=== PATIENT | female | born 1940 | race Caucasian/White ===

== ENCOUNTER 2016-06-09 12:56 | Inpatient (IN) | payer OTHER ==
[~2016-06-09] VITALS: Ht 147.3 cm; Wt 53.2 kg
[~2016-06-09 12:56] MED LIST: ACET325T96 PO; ATOR-26 PO; CLOP1TAB15 PO; CMBIN INH; HYT/2 PO; INSUINJ13 SQ; IPRASOL34 INH; LVQ250 PO; METO1TAB69 PO; NRV5 PO; NTRGSL/4 UT; OMEG10007 PO; PRT/20 PO; SITA25TA PO
[2016-06-09] MEDS ORDERED: SODIUM CHLORIDE 0.9% 1000ML 1,000 ML IV STA ×2 (13:49→16:34)
--- NOTE | 2016-06-09 14:22 | DIAGNOSTIC IMAGING REPORT ---
CHEST ONE VIEW PORTABLE CLINICAL HISTORY: Weakness. COMPARISON STUDY: Chest radiograph June 02, 2015. FINDINGS: Lung volumes are normal. Lungs are clear. There is no pneumothorax or pleural effusion. Cardiac size is normal. Mediastinal contours are normal. There is no evidence of pulmonary edema. The appearance of the chest is unchanged. A vascular stent projects over the left lower neck. IMPRESSION: No acute cardiopulmonary findings. Electronically signed by: Jean Paul Pagan M.D. 06/09/2016 2:20 PM
[2016-06-09 14:48] LABS: BASO % 0.6 %; BASO ABS # 0.04 K/uL (0-0.2); COMPLETE YES; EOS % 5.8 %; HEMATOCRIT 28.7 % (37-47); IG% 0.3 %; LYMPH ABS # 1.38 K/uL (1.2-3.4); MEAN CORPUSCULAR HEMOGLOBIN 31.4 pg (25-34); MEAN CORPUSCULAR HGB CONC 34.1 g/dl (32-36); MEAN PLATELET VOLUME 10.3 fL (7.4-10.4); MONO % 6.1 %; NEUT % 66.2 %; PLATELET COUNT 186 K/uL (130-400); RED BLOOD COUNT 3.12 M/uL (4.2-5.4); WHITE BLOOD COUNT 6.56 K/uL (4.8-10.8)
[2016-06-09 15:42] LABS: BUN/CREATININE RATIO 8.1 (10-20); CALCIUM 14.4 mg/dl (8.5-10.1); CREATININE 7.3 mg/dl (0.60-1.20); MAGNESIUM 3.4 mg/dl (1.8-2.4); PHOSPHORUS 6.1 mg/dl (2.5-4.9); POTASSIUM 4.3 mmol/L (3.5-5.1)
[2016-06-09] MEDS ORDERED: SODIUM CHLORIDE 0.9% 1000ML 1,000 ML IV SCH (17:05)
[2016-06-09] MEDS ORDERED: NITROGLYCERIN 0.4 MG SL PER TAB CHARGE SL PRN (17:15)
[2016-06-09] MEDS ORDERED: ALUMINUM/MAGNESIUM/SIMETH (MAALOX MAX) 30 ML UDC PO PRN (17:15)
[2016-06-09] MEDS ORDERED: ACETAMINOPHEN 325 MG TAB PO PRN (17:15)
[2016-06-09] MEDS ORDERED: NITROGLYCERIN 0.4 MG SL PER TAB CHARGE UT SCH (17:15)
[2016-06-09] MEDS ORDERED: IPRATROPIUM BROMIDE/ALBUTEROL respimat INH INH PRN (17:15)
[2016-06-09] MEDS ORDERED: ONDANSETRON INJ 2 MG/ML 2 ML VIAL IV PRN (17:15)
[2016-06-09] MEDS ORDERED: POLYETHYLENE (MIRALAX) 17 GM PACK PO PRN (17:15)
[2016-06-09] MEDS ORDERED: DEXTROSE 50% 50 ML SYR IV PRN (17:30)
[2016-06-09] MEDS ORDERED: GLUCAGON FOR INJ 1 MG VIAL SQ PRN (17:30)
[2016-06-09] MEDS ORDERED: GLUCOSE 40% GEL 15 GM TUBE PO PRN (17:30)
[2016-06-09] MEDS ORDERED: GLUCOSE 10 TABS/TUBE PO PRN (17:30)
[2016-06-09] MEDS ORDERED: SYMIN160 INH (17:33)
[2016-06-09 17:39] LABS: PROTHROMBIN TIME (PATIENT) 10.3 SECONDS (9.0-12.0)
[2016-06-09 17:45] LABS: URINE APPEARANCE CLEAR (CLEAR); URINE BILIRUBIN NEG (NEG); URINE COLOR YELLOW; URINE NITRITE NEG (NEG); URINE SPECIFIC GRAVITY 1.002 (1.000-1.030); UROBILINOGEN NEG (NEG)
[2016-06-09 17:49] LABS: MANUAL MICROSCOPIC REQUIRED? NO; REVIEW REQ? NO; SULFASALICYLIC ACID POS (NEG)
--- NOTE | 2016-06-09 17:53 | EMERGENCY ROOM VISIT NOTE ---
History Report prepared by Romero: Sue Barajas Under the Supervision of: Dr. Diony Alfaro D.O. First contact with patient: 13:38 Chief Complaint: REFERRED BY DOCTOR Stated Complaint: LIVER PROBLEMS History of Present Illness The patient is a 76 year old female who presents to the Emergency Room with complaints of a referral by doctor that occurred today. The patient states that she had blood work done at [facility] in [place]. They called her today to inform her that she needs to come into the ED because her liver tests were concerning. She is also experiencing a cough, rhinorrhea, and bilateral leg numbness below the knees, but denies chest pain, nausea, vomiting , and diarrhea. Additionally, she has been experiencing abdominal pain for the past couple days. She denies any new shortness of breath and states that she typically wears 2 L of nasal cannula oxygen at night. The patient has a history of an appendectomy but still has her gallbladder. Source of History: patient Onset: today Position: other (generalized) Quality: other (referral by doctor) Associated Symptoms: + abdominal pain, + cough, + numbness (bilateral legs below knees), No SOB, No chest pain, No diarrhea, No nausea, No vomiting Note: rhinorrhea Review of Systems See HPI for pertinent positives & negatives. A total of 10 systems reviewed and were otherwise negative. Past Medical & Surgical Medical Problems: (1) ARF (acute renal failure) (2) CAD (coronary artery disease) (3) CHF exacerbation (4) CKD (chronic kidney disease), stage IV (5) COPD exacerbation (6) COPD, severe (7) Diabetes (8) Dyslipidemia (9) Femoral artery aneurysm, right (10) GERD (gastroesophageal reflux disease) (11) Hypercalcemia (12) Ischemic cardiomyopathy (13) PVD (peripheral vascular disease) Surgical Problems: (1) H/O aorto-femoral bypass (2) History of hysterectomy (3) Hx of appendectomy (4) Hx of cataract surgery (5) S/P carotid endarterectomy (6) S/P femoral-popliteal bypass surgery Family History Patient reports no known family medical history. Social History Smoking Status: Former Smoker Alcohol Use: none Marital Status: Occupation Status: retired Current/Historical Medications Scheduled Amlodipine Besylate (Amlodipine Besylate), 10 MG PO QAM Atorvastatin (Lipitor), 1 TAB PO DAILY Budesonide/Formoterol Fumarate (Symbicort 160/4.5 Inhaler), 2 PUFFS INH BID Clopidogrel (Plavix), 75 MG PO DAILY Fish Oil ([place]-3), 1 CAP PO BID Insulin Aspart Protamine & Asp (Novolog Mix 70/30 Prefill), 5 UNITS SQ BIDM Ipratropium-Albuterol (Duoneb), 1 TREATMENT INH QID Metoprolol Succ (Toprol Xl) (Toprol-Xl ), 100 MG PO DAILY Nitroglycerin (Nitrostat), 0.4 MG UT PRN Pantoprazole Sodium (Protonix), 20 MG PO DAILY Sitagliptin (Januvia), 25 MG PO DAILY Terazosin Hcl (Hytrin), 2 MG PO DAILY Scheduled PRN Acetaminophen Tab (Tylenol), 650 MG PO Q4 PRN for Headache or Pain Ipratropium/Albuterol (Combivent), 2 PUFFS INH QID PRN for Shortness of Breath Allergies Coded Allergies: Codeine (Verified Allergy, Mild, 06/09/16) ABD DISTRESS Aspirin (Verified Allergy, Unknown, UNKNOWN, 06/09/16) PER HER DOCTOR, SHE IS NOT SUPPOSE TO TAKE IT BECAUSE OF HER KIDNEYS Physical Exam Vital Signs Date Time Temp Pulse Resp B/P Pulse Ox O2 Delivery O2 Flow Rate FiO2 06/09/16 16:01 84 21 100 06/09/16 15:31 84 23 99 06/09/16 15:01 84 26 99 06/09/16 14:56 85 25 100 06/09/16 14:28 134/53 06/09/16 14:26 83 26 100 06/09/16 14:05 85 06/09/16 14:01 96 Nasal Cannula 2.0 06/09/16 14:01 96 Nasal Cannula 3.0 06/09/16 13:05 36.6 87 20 111/53 93 Room Air Physical Exam GENERAL: alert, sitting up in bed, disheveled, cachectic appearing, well nourished, no distress, non-toxic EYE EXAM: normal conjunctiva OROPHARYNX: no exudate, no erythema, lips, buccal mucosa, and tongue normal and mucous membranes are moist NECK: supple, no nuchal rigidity, no adenopathy, non-tender LUNGS: Clear to auscultation. Normal chest wall mechanics HEART: no murmurs, S1 normal and S2 normal ABDOMEN: abdomen soft, non-tender, normo-active bowel sounds, no masses, no rebound or guarding. BACK: Back is symmetrical on inspection and there is no deformity, no midline tenderness, no CVA tenderness. SKIN: no rashes and no bruising UPPER EXTREMITIES: upper extremities are grossly normal. LOWER EXTREMITIES: No pitting edema. NEURO EXAM: Normal sensorium Medical Decision & Procedures ER Provider Diagnostic Interpretation: Xray results per the radiologist and my interpretation. CHEST ONE VIEW PORTABLE HISTORY: EVALUATE RESPIRATORY DISTRESS.DYSPNEA COMPARISON: Chest 08/27/2015. FINDINGS: The heart is normal in size. Mildly tortuous thoracic aorta. There are low lung volumes. No pleural effusions. No pneumothorax. Mild central pulmonary vascular congestion without overt edema. Patchy densities at the left lung base persist. IMPRESSION: 1. Mild central pulmonary vascular congestion without overt edema. 2. Patchy densities at the left lung base are similar. This may represent atelectasis or pneumonia. Electronically signed by: Chaitanya Ruvalcaba M.D. 06/09/2016 2:12 PM Laboratory Results 06/09/16 14:30 Red Blood Count 3.12, Mean Corpuscular Volume 92.0, Mean Corpuscular Hemoglobin 31.4, Mean Corpuscular Hemoglobin Concent 34.1, Mean Platelet Volume 10.3, Neutrophils (%) (Auto) 66.2, Lymphocytes (%) (Auto) 21.0, Monocytes (%) (Auto) 6.1, Eosinophils (%) (Auto) 5.8, Basophils (%) (Auto) 0.6, Neutrophils # (Auto) 4.34, Lymphocytes # (Auto) 1.38, Monocytes # (Auto) 0.40, Eosinophils # (Auto) 0.38, Basophils # (Auto) 0.04 06/09/16 14:30 Test 06/09/16 14:30 06/09/16 17:06 White Blood Count 6.56 K/uL (4.8-10.8) Red Blood Count 3.12 M/uL (4.2-5.4) Hemoglobin 9.8 g/dL (12.0-16.0) Hematocrit 28.7 % (37-47) Mean Corpuscular Volume 92.0 fL (80-100) Mean Corpuscular Hemoglobin 31.4 pg (25-34) Mean Corpuscular Hemoglobin Concent 34.1 g/dl (32-36) Platelet Count 186 K/uL (130-400) Mean Platelet Volume 10.3 fL (7.4-10.4) Neutrophils (%) (Auto) 66.2 % Lymphocytes (%) (Auto) 21.0 % Monocytes (%) (Auto) 6.1 % Eosinophils (%) (Auto) 5.8 % Basophils (%) (Auto) 0.6 % Neutrophils # (Auto) 4.34 K/uL (1.4-6.5) Lymphocytes # (Auto) 1.38 K/uL (1.2-3.4) Monocytes # (Auto) 0.40 K/uL (0.11-0.59) Eosinophils # (Auto) 0.38 K/uL (0-0.5) Basophils # (Auto) 0.04 K/uL (0-0.2) RDW Standard Deviation 47.5 fL (36.4-46.3) RDW Coefficient of Variation 14.3 % (11.5-14.5) Immature Granulocyte % (Auto) 0.3 % Immature Granulocyte # (Auto) 0.02 K/uL (0.00-0.02) Prothrombin Time 10.3 SECONDS (9.0-12.0) Prothromb Time International Ratio 1.0 (0.9-1.1) Anion Gap 10.0 mmol/L (3-11) Est Creatinine Clear Calc Drug Dose 3.9 ml/min Estimated GFR () 5.6 Estimated GFR (Non- 4.9 BUN/Creatinine Ratio 8.1 (10-20) Calcium Level 14.4 mg/dl (8.5-10.1) Phosphorus Level 6.1 mg/dl (2.5-4.9) Magnesium Level 3.4 mg/dl (1.8-2.4) Total Bilirubin 0.4 mg/dl (0.2-1) Direct Bilirubin 0.1 mg/dl (0-0.2) Aspartate Amino Transf (AST/SGOT) 23 U/L (15-37) Alanine Aminotransferase (ALT/SGPT) 33 U/L (12-78) Alkaline Phosphatase 78 U/L (45-117) Troponin I 0.018 ng/ml (0-0.045) Total Protein 6.3 gm/dl (6.4-8.2) Albumin 3.3 gm/dl (3.4-5.0) Urine Color YELLOW Urine Appearance CLEAR (CLEAR) Urine pH 8.0 (4.5-7.5) Urine Specific Dustin 1.002 (1.000-1.030) Urine Protein TRACE (NEG) Urine Glucose (UA) NEG (NEG) Urine Ketones NEG (NEG) Urine Occult Blood TRACE (NEG) Urine Nitrite NEG (NEG) Urine Bilirubin NEG (NEG) Urine Urobilinogen NEG (NEG) Urine Leukocyte Esterase NEG (NEG) Urine WBC (Auto) 1-5 /hpf (0-5) Urine RBC (Auto) 0-4 /hpf (0-4) Urine Hyaline Casts (Auto) 1-5 /lpf (0-5) Urine Epithelial Cells (Auto) 5-10 /lpf (0-5) Urine Bacteria (Auto) NEG (NEG) Laboratory results per my review. Medications Administered Medications (Trade) Dose Ordered Sig/Jennifer Route Start Time Stop Time Status Last Admin Dose Admin Sodium Chloride 1,000 ml @ 999 mls/hr Q1H1M STAT IV 06/09/16 13:49 06/09/16 14:49 DC 06/09/16 15:01 999 MLS/HR Sodium Chloride (Nss 1000ml) 1,000 ml @ 999 mls/hr Q1H1M STAT IV 06/09/16 16:34 06/09/16 17:34 DC 06/09/16 17:09 999 MLS/HR ECG Indication: abdominal pain Rate (beats per minute): 85 Rhythm: sinus rhythm Findings: 1st degree AV block, nonspecific-ST abn (Inferior), other (normal axis) ED Course ED COURSE: Vital signs were reviewed and showed normal. The patients medical record was reviewed The above diagnostic studies were performed and reviewed. ED treatments and interventions as stated above. 1342: The patient was evaluated in room B5. A complete history and physical examination was performed. 1349: Ordered Sodium Chloride 1000 ml @ 999 mls/hr IV 1510: I reassessed and updated the patient. 1607: I reviewed the patient's case with Adele Mcconnell. She will evaluate the patient for further management. 1610: Upon reevaluation, the patient is resting comfortably. I discussed my findings with the patient and she understands and agrees with the treatment plan. Based on the patients age, coexisting illnesses, exam and lab findings the decision to treat as an inpatient was made. The patient remained stable while under my care. The patient will be evaluated for further management. 1616: The nurses performed a bladder scan on the patient and it revealed that she had 130 mL of fluid in her bladder. 1632: I reviewed the patient's case with Dr. Mariaelena Young. He recommended putting a Perez catheter in the patient and hydrating her. 1634: Ordered Sodium Chloride 1000 ml @ 999 mls/hr IV Medical Decision Differential Diagnosis includes but is not limited to dehydration, stroke, anemia, hypoglycemia, hyponatremia, hypernatremia, urinary tract infection, pneumonia, bronchitis, sepsis, gastroenteritis, additional abdominal pathology, metabolic abnormalities and infections. Patient is a 76-year-old female who presents the ER for a referral by her primary care doctor for abnormal labs. She initially states that this is because of liver failure. On exam she notes that she has been feeling very weak and tired. She denies any diarrhea, nausea or vomiting. She has she has been giving him more liquids than usual. Labs show no significant leukocytosis or anemia. BMP was remarkable for a creatinine of 7.3 along with a calcium of 14. Her previous calciums were elevated. Her phosphate and magnesium are also elevated. UA was unremarkable. Discussed the case with internal medicine and nephrology. Perez was placed and had 125 ML's out. Perez was placed per nephrology. He noted no follow-up and they recommended aggressive IV hydration. Patient was updated bedside admitted to internal medicine for acute renal failure along with hypercalcemia. Consults Time Called: 1555 Consulting Physician: Adele Mcconnell Returned Call: 1606 I reviewed the patient's case with Adele Mcconnell. She will evaluate the patient for further management. Additional Consults: Time Called: 1620 Consulted Physician: Dr. Mariaelena Young Returned Call: 1632 Additional Comments: I reviewed the patient's case with Dr. Mariaelena Young. He recommended putting a Perez catheter in the patient and hydrating her. Impression Primary Impression: Acute kidney injury Additional Impressions: Hypercalcemia, Hypermagnesemia, Hyperphosphatemia Scribe Attestation The scribe's documentation has been prepared under my direction and personally reviewed by me in its entirety. I confirm that the note above accurately reflects all work, treatment, procedures, and medical decision making performed by me. Departure Information Dispostion Being Evaluated By Hospitalist Prescriptions Budesonide/Formoterol Fumarate (Symbicort 160/4.5 Inhaler) 120 Puffs/ Aero 2 PUFFS INH BID for 30 Days, #1 INHALER 3 Refills Prov: Elliott Pascual MD 06/09/16 Referrals Dong Baumann M.D.([facility]) (PCP) Patient Instructions A Signature Page, My [facility]
--- NOTE | 2016-06-09 18:00 | DIAGNOSTIC IMAGING REPORT ---
ABDOMEN AND PELVIS CT WITHOUT CONTRAST CT DOSE: 245.65 mGy.cm HISTORY: Renal failure pain. Constipation. TECHNIQUE: Multiaxial CT images of the abdomen and pelvis were performed without contrast. COMPARISON STUDY: 10/17/2007 FINDINGS: Limited study due to absence of contrast enhancement of a type. Mild grade megaly. Trace pericardial thickening. Minimal dependent basilar atelectatic change. There is trace. Ascites. Probable gallstones. Contracted gallbladder. Bilateral nonobstructive renal vascular calcifications. Mild hyperplastic change left adrenal gland unchanged. Atherosclerotic changes the abdominal and pelvic arterial vasculature mildly progressive from the prior study. Bowel pattern overall is nonobstructive within limitations of absent contrast. Chronic colonic diverticulosis with potential of wall thickening of the sigmoid consistent with mild superimposed acute diverticulitis. No evidence for abscess collection or obstructive change. Perez catheter within a relatively collapsed bladder. IMPRESSION: 1. Trace ascites. 2. Gallstones within what appears be a moderately contracted gallbladder. 3. Atherosclerotic change abdominal and pelvic arterial vasculature progressive compared to the prior exam. 4. Mild acute sigmoid diverticulitis superimposed upon chronic diverticuli change. 5. No evidence for abscess collection or obstructive change. Electronically signed by: Julio Cesar Valdivia M.D. 06/09/2016 5:58 PM
--- NOTE | 2016-06-09 18:50 | HISTORY & PHYSICAL EXAMINATION ---
DATE OF ADMISSION: 06/09/2016 CHIEF COMPLAINT: Abnormal labs. HISTORY OF PRESENT ILLNESS: This is a 76-year-old female with past medical history significant for type 1 diabetes, chronic kidney disease stage 4, history of CAD, history of carotid stenosis, history of nontoxic multinodular goiter, history of peripheral vascular disease, history of gastric ulcer with acute hemorrhage, history of GERD, history of congenital anomaly of the peripheral vascular system, history of systolic CHF with an EF of around 45%-50%, , history of hyperlipidemia, history of COPD, severe, on home oxygen; history of calculus of gallbladder without cholecystitis without obstruction comes because of abnormal labs. The patient says since last 2-3 weeks she has been dry in her mouth and also she was feeling numbness in her lower extremities on and off. She had labs done by her primary care physician and was told that she has to go to the ER because of significant abnormal labs and labs drawn in the ER shows a creatinine of 7.3, and calcium of 14.4. Her baseline creatinine is around 2 and her calcium is also in the 10s to 11 range as an outpatient. The patient is chronically on home oxygen for her COPD, currently resting comfortably. Denies any nausea or vomiting. Denies any chest pain. Denies any shortness of breath. Denies any cough. Denies any headaches or blurred vision. No abdominal pain. Says appetite is very poor. She says she has constipation for a long time and she goes only very hard stools. She lives alone. She has ambulatory dysfunction, but she can get around in the house. Her brother comes and checks on her and her niece comes and checks on her. She is not following with any kidney doctor. ALLERGIES: AMOXICILLIN, IMDUR, SALICYLATES. PAST MEDICAL HISTORY: As mentioned above. PAST SURGICAL HISTORY: Arterial femoral bypass graft in 2001, left heart catheterization. Left carotid endarterectomy, right femoral artery aneurysm repair with graft, laser trabeculoplasty, left carotid artery stent placement, total hysterectomy. MEDICATIONS: The patient is on amlodipine 10 mg p.o. daily, terazosin 2 mg p.o. daily, NovoLog mix 70/30 five units b.i.d., Protonix 40 mg p.o. daily, Combivent 1 inhalation 4 times daily, DuoNeb nebulization 3-4 times a day as needed, prednisone rescue kit, azithromycin rescue kit, metoprolol succinate 100 mL p.o. daily, Plavix 75 mg p.o. daily, Januvia 25 mg p.o. daily, atorvastatin 80 mg p.o. daily, Symbicort 160/4.5 mcg inhalation b.i.d., nitroglycerin 0.4 mg p.r.n., Tylenol 650 mg p.o. q. 4 hours p.r.n., fish oil 1 gram p.o. b.i.d. FAMILY HISTORY: Significant for mother at the age of 86. Father . Father had heart disorder. SOCIAL HISTORY: . Quit smoking in 2000, smoked half pack a day for 40 years. No alcohol use. No drug use. Lives alone. REVIEW OF SYSTEMS: As per HPI. PHYSICAL EXAMINATION: GENERAL: The patient is old and frail, not in distress. VITAL SIGNS: Temperature 36.6, pulse 84, respiratory rate 21, blood pressure 134/53, oxygen 100% on 2 liters. HEENT: No pallor, no icterus. Pupils equal, round, and reactive to light. Oral mucosa dry. NECK: No JVD, no neck masses, no carotid bruits. CARDIOVASCULAR: S1, S2 heard, regular rate and rhythm, no murmur, no gallop. RESPIRATORY SYSTEM: Normal AP diameter. No accessory muscle use. No wheezing, no crackles. ABDOMEN: Soft, bowel sounds present. Nontender. No distention. CENTRAL NERVOUS SYSTEM: Cranial nerves II through XII grossly intact. Nonfocal. EXTREMITIES: No edema, no erythema. LABORATORIES: Sodium 137, potassium 4.3, chloride 94, bicarbonate 33, BUN 59, creatinine 7.3, serum glucose 141, calcium 14.4, phosphorus 6.1, magnesium 3.4, total bilirubin 0.4, direct bilirubin 0.1, AST 23, ALT 33, alkaline phosphatase 78. WBC 6.5, hemoglobin 9.8, hematocrit 28.7, platelets 186. Chest x-ray: No acute process seen. EKG: EKG sinus rhythm with first-degree AV block, rate of 85. [place] interval has increased, otherwise has no significant change from previous EKG. ASSESSMENT AND PLAN: This is a 70-year-old female who presents with abnormal labs. 1. Acute renal failure and chronic kidney disease stage 4. Baseline creatinine around 2, presents with a creatinine of 7.3. The patient has no history of nausea, vomiting or diarrhea, not on any nephrotoxic medications, but patient has poor appetite. The patient also is constipated for a long time. Discussed with the battery installer. The patient is also having hypercalcemia. We are going to place the patient on Perez catheter and give fluid challenge. If she responds to fluid challenge with urine output, we are going to continue fluids, IV normal saline at 150 mL per hour and follow the labs. If the patient does not improve the plan is for dialysis. Close monitor in the telemetry floor. 2. Hypercalcemia. Calcium of 14.4. The patient has previous labs, around 10-11. Trying to give fluid bolus as above and follow the labs.Workup as per nephrology 3. History of chronic systolic congestive heart failure with an ejection fraction of around 45%-49%. Global hypokinesis, etiology unknown. Not on any diuretics. We will monitor for volume overload as the patient is getting fluids at this time. 4. History of peripheral vascular disease, status post surgery, the patient is on Plavix and statin which we will continue. 5. History of type 1 diabetes. We will hold the NovoLog mix and metformin, place on small dose of Lantus and insulin sliding scale and follow the blood sugars. 6. History of constipation going on for several days. We will follow the CT of the abdomen and pelvis. 7. History of chronic obstructive pulmonary disease, severe, on home oxygen. We will continue home inhalers and nebs and oxygen. 8. History of coronary artery disease, continue her medication of metoprolol, Plavix and statin. 9. History of hypertension. Continue amlodipine, terazosin and metoprolol. Follow the blood pressure. 10. History of gastroesophageal reflux disease. Continue Protonix. 11. Deep venous thrombosis prophylaxis, heparin subQ and sequential compression devices. 12. Disposition: Close monitor in tele floor. Level 1 full code if chance of recovery. MTDD
[2016-06-09 19:50] VITALS: Ht 147.3 cm; Wt 53.2 kg
[2016-06-09 19:57] VITALS: BP 119/56; PULSE 86; TEMP 36.8; O2SAT 92
[2016-06-09] MEDS ORDERED: ALBUT/IPRATROP 3MG/0.5MG NEB 3 ML VIAL INH SCH (20:00)
[2016-06-09] MEDS: INSULIN ASPART 100 UNITS/ML 3 ML PEN SC SCH (21:40)
[2016-06-09] MEDS: BUDESONIDE/FORMOTEROL FUMARATE 160/4.5 60 PUFFS/INHALER INH SCH (21:40)
[2016-06-09] MEDS: OMEGA-3 (PURIFIED FISH OIL) 1 GM CAP PO SCH (21:41)
[2016-06-09] MEDS: HEPARIN SOD 5000 UNIT/0.5 ML CARP SQ SCH (21:42)
[2016-06-09 21:53] LABS: BUN/CREATININE RATIO 9.3 (10-20); CALCIUM 13.6 mg/dl (8.5-10.1); CREATININE 7.2 mg/dl (0.60-1.20); POTASSIUM 4.5 mmol/L (3.5-5.1)
[2016-06-09] MEDS: SODIUM CHLORIDE 0.9% 1000ML 1,000 ML IV SCH (22:35)
[2016-06-10] VITALS (7 sets, daily range): BP systolic 106–197; BP diastolic 41–62; PULSE 69–80; TEMP 36.7–36.9; O2SAT 96–98
[2016-06-10] MEDS: SODIUM CHLORIDE 0.9% 1000ML 1,000 ML IV SCH (05:23)
[2016-06-10 06:55] LABS: BASO % 0.7 %; BASO ABS # 0.04 K/uL (0-0.2); EOS % 7.8 %; LYMPH % 24.8 %; MEAN CELL VOLUME 93.9 fL (80-100); MEAN CORPUSCULAR HEMOGLOBIN 30.7 pg (25-34); MEAN CORPUSCULAR HGB CONC 32.7 g/dl (32-36); MEAN PLATELET VOLUME 10.3 fL (7.4-10.4); MONO % 9.4 %; NEUT % 57.3 %; PLATELET COUNT 152 K/uL (130-400); RED BLOOD COUNT 2.77 M/uL (4.2-5.4); WHITE BLOOD COUNT 5.65 K/uL (4.8-10.8)
[2016-06-10 07:40] LABS: ACANTHOCYTES 1+; COMPLETE YES
[2016-06-10 07:48] LABS: BUN/CREATININE RATIO 9.3 (10-20); CALCIUM 12.4 mg/dl (8.5-10.1); CREATININE 6.8 mg/dl (0.60-1.20); MAGNESIUM 2.8 mg/dl (1.8-2.4); PHOSPHORUS 5.6 mg/dl (2.5-4.9); POTASSIUM 4.5 mmol/L (3.5-5.1)
[2016-06-10 07:57] LABS: ESTIMATED AVERAGE GLUCOSE 171 mg/dl; HA1C FLAG Normal (Normal)
[2016-06-10] MEDS: INSULIN ASPART 100 UNITS/ML 3 ML PEN SC SCH ×4 (08:21→21:00)
[2016-06-10] MEDS: BUDESONIDE/FORMOTEROL FUMARATE 160/4.5 60 PUFFS/INHALER INH SCH ×2 (08:22→21:37)
[2016-06-10] MEDS: INSULIN GLARGINE SOLOSTAR 100 UNITS/ML 3 ML PEN SC SCH ×2 (08:24→21:47)
[2016-06-10] MEDS: HEPARIN SOD 5000 UNIT/0.5 ML CARP SQ SCH ×2 (08:25→21:47)
[2016-06-10] MEDS: OMEGA-3 (PURIFIED FISH OIL) 1 GM CAP PO SCH ×2 (08:25→21:36)
[2016-06-10] MEDS: ATORVASTATIN 40 MG TAB PO SCH (08:26)
[2016-06-10] MEDS: CLOPIDOGREL BISULFATE 75 MG TAB PO SCH (08:26)
[2016-06-10] MEDS: METOPROLOL SUCC 50MG EXT REL TAB PO SCH (08:26)
[2016-06-10] MEDS: PANTOprazole SOD 40 MG TAB PO SCH (08:26)
[2016-06-10] MEDS: AMLODIPINE BESYLATE 5 MG TAB PO SCH (08:27)
[2016-06-10] MEDS ORDERED: CIPROFLOXACIN CONSULT ACTIVE PRN ×2 (09:30)
[2016-06-10] MEDS: CIPROFLOXACIN / D5W 400 MG in PREMIXED IN D5W 200 ML IV SCH (10:33)
[2016-06-10] MEDS: METRONIDAZOLE / NSS 500 MG in PREMIXED NSS 100 ML IV SCH ×2 (10:40→18:00)
--- NOTE | 2016-06-10 14:44 | NEPHROLOGY CONSULTATION ---
DATE OF CONSULTATION: 06/10/2016 DATE OF CONSULTATION: 06/10/2016. ATTENDING OF RECORD: Dr. Pascual. REASON FOR CONSULTATION: DEMETRIO. 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 The patient has also had a high calcium for several years and presented with very poor appetite, leg weakness and constipation. The patient was found to have a creatinine of 7.3 with a baseline in the 2s with a calcium level of 14.4 with baseline in the 11s and appeared to be significantly volume depleted. The patient given aggressive hydration and is currently on normal saline and tolerating it well. Creatinine has improved from 7.3-6.8 and calcium levels have improved from 14.4-12.4. The patient's leg weakness has improved and appetite is much better, has clear urine in her Perez catheter. Denies any significant shortness of breath compared to her baseline. PAST MEDICAL HISTORY: Diabetes, CKD stage IV, baseline creatinine in the 2s, heart disease, peripheral vascular disease, congestive heart failure, COPD with history of smoking, quit smoking but does require home oxygen, hyperlipidemia. PAST SURGICAL HISTORY: Aortofemoral bypass graft 2001, left CEA, right femoral artery aneurysm repair, left carotid artery stent placement, hysterectomy. FAMILY HISTORY: Significant for heart disease. SOCIAL HISTORY: Lives alone. Quit smoking in 2000. No alcohol, no drugs. REVIEW OF SYSTEMS: Positive shortness of breath with exertion. Positive fatigue. Positive anorexia. Positive constipation. Positive blurry vision. No dysphagia, no chest pain, no nausea, vomiting, no rash. All other review of systems otherwise negative. CURRENT MEDICATIONS: Cipro 400 mg IV every day, Flagyl 500 mg IV q. 8 hours, Norvasc 10 mg daily, Lipitor 80 mg daily, Plavix 75 mg daily, Toprol-XL 100 mg daily, terazosin 2 mg daily, Protonix 40 mg daily, normal saline at 150 mL an hour, Lantus 3 units at night, heparin 5,000 units subQ q. 12, fish oil 1 gram p.o. b.i.d., sliding scale insulin, Symbicort inhaler twice a day. PHYSICAL EXAMINATION: VITAL SIGNS: Temperature 36.7, pulse 72, respiratory rate 18, blood pressure 106/57, satting 96% on 3 liters. GENERAL: Awake, alert, oriented x3, and cachectic. EYES: No scleral icterus. EARS, NOSE, THROAT: Mucous membranes are dry. NECK: Supple. PULMONARY: Minimal air movement. CARDIAC: Distant heart sounds. ABDOMEN: Bowel sounds positive, soft, nontender. EXTREMITIES: No significant clubbing, cyanosis or edema. NEUROLOGICALLY: Nonfocal. DERMATOLOGY: No rash or ulcers noted. LABORATORY DATA: Sodium is 143, potassium is 4.5, chloride is 108, bicarb is 28, BUN 64, creatinine 6.8, glucose 76, calcium is 12.4, phosphorus 5.6, mag is 2.8. Hemoglobin A1c 7.6. White count is 5.6, H\T\H 8.5 and 26, platelet count 152. INR is 1. UA shows 0-4 RBCs, specific gravity 1.002, pH of 8. Abdominal pelvis CT shows gallstones, atherosclerotic changes of the vasculature, mild diverticulitis. IMPRESSION AND PLAN: 1. Acute kidney injury on chronic kidney disease stage IV, appears to be prerenal in nature and creatinine is improving with appropriate hydration, careful given the patient's underlying COPD as well as congestive heart failure, although currently tolerating nasal cannula and tolerating the fluids well. We will continue the normal saline at 150 mL an hour and patient is urinating well. Creatinine is trending down. Currently not uremic. No indication for emergent dialysis at this time. 2. Hypercalcemia. The patient's calcium levels have been chronically high for several years. Would like to check SPEP, vitamin D, PTHRP, ANGEL level, 125 dihydroxy vitamin D levels to further evaluate the hypercalcemia causes. The patient's worsening high calcium level is likely secondary to prerenal though does have possible underlying primary hyperparathyroidism. Will have to do the workup to further investigate the causes for her high calcium which she has at baseline. 3. Chronic kidney disease. The patient does have underlying CKD likely secondary to her diabetes, hypertension and vascular disease as an outpatient. I would recommend followup with nephrology if the patient is agreeable. The patient though does admit to me that she does not prefer to investigate such causes and tries to keep doctors' appointments to a minimum. For now, will give IV fluids. Follow electrolytes, workup cause for high calcium. Hopefully, creatinine eventually improves back down to baseline, although complicated given her comorbidities with underlying chronic obstructive pulmonary disease and at risk for congestive heart failure. I appreciate the consultation. MICHELLE
[2016-06-10 16:47] LABS: BUN/CREATININE RATIO 9.3 (10-20); CALCIUM 11.9 mg/dl (8.5-10.1); MAGNESIUM 2.5 mg/dl (1.8-2.4); PHOSPHORUS 5.1 mg/dl (2.5-4.9); POTASSIUM 4.7 mmol/L (3.5-5.1)
[2016-06-10 16:49] LABS: CREATININE 6.5 mg/dl (0.60-1.20)
--- NOTE | 2016-06-10 17:15 | DIAGNOSTIC IMAGING REPORT ---
CHEST ONE VIEW PORTABLE CLINICAL HISTORY: congestion COMPARISON STUDY: 06/09/2016 FINDINGS: The heart is enlarged. There is radiographic evidence of emphysema. There is subtle interstitial edema most pronounced in the left midlung zone. There is no focal pulmonary consolidation. There are no pleural effusions.[ There is a vascular stent within the left neck. IMPRESSION: 1. Emphysema 2. Cardiomegaly 3. Very subtle interstitial edema pattern most pronounced in the left midlung zone. While likely on a cardiogenic basis, an interstitial inflammatory process could appear similar. Clinical and radiographic follow-up is recommended. Electronically signed by: Cole Ro M.D. 06/10/2016 5:13 PM Dictated Date/Time: 06/10/2016 5:11 PM
[2016-06-10 17:45] LABS: INFLUENZA A PCR Neg for Influ A (NEG); INFLUENZA B PCR Neg for Influ B (NEG)
--- NOTE | 2016-06-10 19:09 | Progress Note ---
Internal Med Progress Note Date of Service: Jun 10, 2016. Provider Documentation: SUBJECTIVE: resting comfortably family in room feeling better de la rosa yesterday still constipated family says she is getting sob while talking afebrile no chest pain OBJECTIVE: Vital Signs-as noted below Exam: General-alert and oriented x 3 ENT-normal hearing Neck-no neck masses Lungs-cta b/l no wheezing or crackles Heart-s1 and s2 heard regular rate and rhythm, no murmurs Abdomen-soft bowel sounds present non tender no distension Extremities-no edema no erythema Neuro-alert and awake moves extremities Lab data as noted below. ASSESSMENT & PLAN: This is a 70-year-old female who presents with abnormal labs. 1. Acute renal failure and chronic kidney disease stage 4. Baseline creatinine around 2, presents with a creatinine of 7.3. Mostly pre renal Started on IV fluids as per nephrology recommendation cr improved to 6.5 todasy. To continue current fluids and close monitor for volume overload.CXR mild interstitial disease. will f/u. 2. Hypercalcemia. Presented with Calcium of 14.4. The patient has previous labs, around 10-11. On iv ns@150ml/hr ca today 11.9. f/u labs in am. 3. History of chronic systolic congestive heart failure with an ejection fraction of around 45%-49%. Global hypokinesis, etiology unknown. Not on any diuretics. We will monitor for volume overload as the patient is getting fluids at this time. 4. Diverticulitis mild on ct scan started on Cipro and Flagyl. follow GI. 5. History of peripheral vascular disease, status post surgery, the patient is on Plavix and statin which we will continue. 6. History of type 1 diabetes. We will hold the NovoLog mix and metformin, place on small dose of Lantus and insulin sliding scale and follow the blood sugars.Will monitor. 7. History of constipation going on for several days. We will follow the CT of the abdomen and pelvis. 8. History of chronic obstructive pulmonary disease, severe, on home oxygen. We will continue home inhalers and nebs and oxygen. 9. History of coronary artery disease, continue her medication of metoprolol, Plavix and statin. 10. History of hypertension. Continue amlodipine, terazosin and metoprolol. Follow the blood pressure. 11. History of gastroesophageal reflux disease. Continue Protonix. 12. Deep venous thrombosis prophylaxis, heparin subQ and sequential compression devices. 13. Disposition: Close monitor in tele floor. Level 1 full code if chance of recovery. Vital Signs: Date Time Temp Pulse Resp B/P Pulse Ox O2 Delivery O2 Flow Rate FiO2 06/10/16 16:00 Nasal Cannula 3.0 06/10/16 16:00 36.9 73 18 127/50 96 Nasal Cannula 3.0 06/10/16 12:00 36.7 72 18 106/57 96 Nasal Cannula 3.0 06/10/16 12:00 Nasal Cannula 3.0 06/10/16 08:00 Nasal Cannula 3.0 06/10/16 08:00 36.9 69 20 116/52 97 Nasal Cannula 3.0 06/10/16 04:00 Nasal Cannula 3.0 06/10/16 03:29 36.9 69 21 134/62 98 Nasal Cannula 3.0 06/10/16 00:03 36.7 70 18 137/41 98 Nasal Cannula 3.0 06/09/16 23:59 Nasal Cannula 3.0 06/09/16 20:00 Nasal Cannula 3.0 06/09/16 19:57 36.8 86 20 119/56 92 Nasal Cannula 3.0 06/09/16 19:50 Nasal Cannula 3.0 Lab Results: Results Past 24 Hours Test 06/09/16 21:00 06/09/16 21:20 06/10/16 00:00 06/10/16 06:13 Range/Units Sodium Level 141 143 136-145 mmol/L Potassium Level 4.5 4.5 3.5-5.1 mmol/L Chloride Level 100 108 98-107 mmol/L Carbon Dioxide Level 33 28 21-32 mmol/L Anion Gap 8.0 7.0 3-11 mmol/L Blood Urea Nitrogen 65 64 7-18 mg/dl Creatinine 7.20 6.80 0.60-1.20 mg/dl Est Creatinine Clear Calc Drug Dose 4.2 4.4 ml/min Estimated GFR () 5.7 6.2 Estimated GFR (Non- 5.0 5.3 BUN/Creatinine Ratio 9.3 9.3 10-20 Random Glucose 121 76 70-99 mg/dl Calcium Level 13.6 12.4 8.5-10.1 mg/dl Bedside Glucose 140 70-90 mg/dl Influenza Type A (RT-PCR) Neg for Influ A NEG Influenza Type B (RT-PCR) Neg for Influ B NEG White Blood Count 5.65 4.8-10.8 K/uL Red Blood Count 2.77 4.2-5.4 M/uL Hemoglobin 8.5 12.0-16.0 g/dL Hematocrit 26.0 37-47 % Mean Corpuscular Volume 93.9 80-100 fL Mean Corpuscular Hemoglobin 30.7 25-34 pg Mean Corpuscular Hemoglobin Concent 32.7 32-36 g/dl Platelet Count 152 130-400 K/uL Mean Platelet Volume 10.3 7.4-10.4 fL Neutrophils (%) (Auto) 57.3 % Lymphocytes (%) (Auto) 24.8 % Monocytes (%) (Auto) 9.4 % Eosinophils (%) (Auto) 7.8 % Basophils (%) (Auto) 0.7 % Neutrophils # (Auto) 3.24 1.4-6.5 K/uL Lymphocytes # (Auto) 1.40 1.2-3.4 K/uL Monocytes # (Auto) 0.53 0.11-0.59 K/uL Eosinophils # (Auto) 0.44 0-0.5 K/uL Basophils # (Auto) 0.04 0-0.2 K/uL RDW Standard Deviation 48.9 36.4-46.3 fL RDW Coefficient of Variation 14.3 11.5-14.5 % Immature Granulocyte % (Auto) 0.0 % Immature Granulocyte # (Auto) 0.00 0.00-0.02 K/uL Acanthocytes 1+ Estimated Average Glucose 171 mg/dl Hemoglobin A1c 7.6 4.5-5.6 % Phosphorus Level 5.6 2.5-4.9 mg/dl Magnesium Level 2.8 1.8-2.4 mg/dl Test 06/10/16 08:09 06/10/16 11:28 06/10/16 16:00 06/10/16 16:34 Range/Units Bedside Glucose 81 113 82 70-90 mg/dl Sodium Level 141 136-145 mmol/L Potassium Level 4.7 3.5-5.1 mmol/L Chloride Level 102 98-107 mmol/L Carbon Dioxide Level 30 21-32 mmol/L Anion Gap 9.0 3-11 mmol/L Blood Urea Nitrogen 60 7-18 mg/dl Creatinine 6.50 0.60-1.20 mg/dl Est Creatinine Clear Calc Drug Dose 4.6 ml/min Estimated GFR () 6.5 Estimated GFR (Non- 5.6 BUN/Creatinine Ratio 9.3 10-20 Random Glucose 67 70-99 mg/dl Calcium Level 11.9 8.5-10.1 mg/dl Phosphorus Level 5.1 2.5-4.9 mg/dl Magnesium Level 2.5 1.8-2.4 mg/dl
[2016-06-11] VITALS (7 sets, daily range): BP systolic 113–124; BP diastolic 43–56; PULSE 64–68; TEMP 36.3–37.1; O2SAT 92–98
[2016-06-11] MEDS: METRONIDAZOLE / NSS 500 MG in PREMIXED NSS 100 ML IV SCH ×3 (01:26→17:47)
[2016-06-11] MEDS: SODIUM CHLORIDE 0.9% 1000ML 1,000 ML IV SCH ×4 (01:26→22:01)
[2016-06-11] MEDS: INSULIN ASPART 100 UNITS/ML 3 ML PEN SC SCH ×4 (06:30→20:44)
--- NOTE | 2016-06-11 07:17 | Nephrology Progress Note ---
Nephrology Progress Note Date of Service: Jun 11, 2016. Subjective 76 yo female with demetrio on ckd with hypercalcemia which is improving on iv fluids. tolerating fluids well. Objective Date Time Temp Pulse Resp B/P Pulse Ox O2 Delivery O2 Flow Rate FiO2 06/11/16 05:12 37.1 68 18 124/47 92 2.0 06/11/16 04:00 Nasal Cannula 2.0 06/11/16 00:00 Nasal Cannula 2.0 06/10/16 20:00 96 Nasal Cannula 2.0 06/10/16 19:18 36.7 80 20 143/57 96 Nasal Cannula 2.0 06/10/16 16:00 Nasal Cannula 3.0 06/10/16 16:00 36.9 73 18 127/50 96 Nasal Cannula 3.0 06/10/16 12:00 36.7 72 18 106/57 96 Nasal Cannula 3.0 06/10/16 12:00 Nasal Cannula 3.0 06/10/16 08:00 Nasal Cannula 3.0 06/10/16 08:00 36.9 69 20 116/52 97 Nasal Cannula 3.0 Physical Exam: General-aaox3 Eyes-no scleral icterus ENT-mmm Neck-supple Lungs-cta Heart-rrr Abdomen-bs+ s/nt/nd Extremities-no c/c/e Neuro-nonfocal Current Inpatient Medications Medications (Trade) Dose Ordered Sig/Jennifer Route Start Time Stop Time Status Last Admin Dose Admin Heparin Sodium (Porcine) (Heparin Sq 5000 Unit/0.5ml) 5,000 unit Q12 SQ 06/09/16 21:00 07/09/16 20:59 06/10/16 21:47 5,000 UNIT Acetaminophen (Tylenol Tab) 650 mg Q4H PRN PO 06/09/16 17:15 07/09/16 17:14 Al Hydrox/Mg Hydrox/Simethicone (Maalox Max Susp) 15 ml Q4H PRN PO 06/09/16 17:15 07/09/16 17:14 Ondansetron HCl (Zofran Inj) 4 mg Q6H PRN IV 06/09/16 17:15 07/09/16 17:14 Nitroglycerin (Nitrostat Tab) 0.4 mg UD PRN SL 06/09/16 17:15 07/09/16 17:14 Polyethylene (Miralax Powder Packet) 17 gm DAILY PRN PO 06/09/16 17:15 07/09/16 17:14 Amlodipine Besylate (Norvasc Tab) 10 mg QAM PO 06/10/16 09:00 07/10/16 08:59 06/10/16 08:27 10 MG Atorvastatin Calcium (Lipitor Tab) 80 mg DAILY PO 06/10/16 09:00 07/10/16 08:59 06/10/16 08:26 80 MG Clopidogrel Bisulfate (plAVix TAB) 75 mg DAILY PO 06/10/16 09:00 07/10/16 08:59 06/10/16 08:26 75 MG Fish Oil (Wataga-3 (Purified Fish Oil) Cap) 1 gm BID PO 06/09/16 21:00 07/09/16 20:59 06/10/16 21:36 1 GM Metoprolol Succinate (Toprol Xl Tab) 100 mg DAILY PO 06/10/16 09:00 07/10/16 08:59 06/10/16 08:26 100 MG Terazosin HCl (Hytrin Cap) 2 mg DAILY PO 06/10/16 09:00 07/10/16 08:59 06/10/16 08:27 2 MG Albuterol/ Ipratropium (Combivent Respimat Inh) 1 puffs QID PRN INH 06/09/16 17:15 07/09/16 17:14 Pantoprazole Sodium (Protonix Tab) 40 mg DAILY PO 06/10/16 09:00 07/10/16 08:59 06/10/16 08:26 40 MG Insulin Glargine (Lantus Solostar Pen) 3 unit HS SC 06/10/16 09:00 07/10/16 08:59 06/10/16 21:47 3 UNIT Insulin Aspart (novoLOG ASPART) SLIDING SCALE G... ACHS SC 06/09/16 21:00 07/09/16 20:59 Glucose (Glucose 40% Gel) 15-30 GRAMS 15 GRAMS... UD PRN PO 06/09/16 17:30 07/09/16 17:29 Glucose (Glucose Chew Tab) 4-8 Tablets 4 Tabl... UD PRN PO 06/09/16 17:30 07/09/16 17:29 Dextrose (Dextrose 50% 50ML Syringe) 25-50ML OF 50% DW IV FOR... UD PRN IV 06/09/16 17:30 07/09/16 17:29 Glucagon (Glucagon Inj) 1 mg UD PRN SQ 06/09/16 17:30 07/09/16 17:29 Albuterol/ Ipratropium (Duoneb) 3 ml QIDR PRN INH 06/09/16 20:00 07/09/16 19:59 Budesonide/ Formoterol Fumarate 2 puffs 2 puffs BID INH 06/09/16 21:00 07/09/16 20:59 06/10/16 21:37 2 PUFFS Sodium Chloride 1,000 ml @ 150 mls/hr Q6H40M IV 06/09/16 22:30 07/09/16 22:29 06/11/16 01:26 150 MLS/HR Ciprofloxacin/ Dextrose 400 mg/ Prmx 200 ml @ 100 mls/hr Q24H IV 06/10/16 10:00 06/20/16 09:59 06/10/16 10:33 100 MLS/HR Metronidazole/Prmx (Flagyl / Nss/ Premixed Nss) 100 ml @ 100 mls/hr Q8H IV 06/10/16 10:00 06/20/16 09:59 06/11/16 01:26 100 MLS/HR Ciprofloxacin (Consult) 1 ea UD PRN N/A 06/10/16 09:30 07/10/16 09:29 Last 24 Hours Test 06/10/16 08:09 06/10/16 11:28 06/10/16 16:00 06/10/16 16:34 Bedside Glucose 81 mg/dl 113 mg/dl 82 mg/dl Sodium Level 141 mmol/L Potassium Level 4.7 mmol/L Chloride Level 102 mmol/L Carbon Dioxide Level 30 mmol/L Anion Gap 9.0 mmol/L Blood Urea Nitrogen 60 mg/dl Creatinine 6.50 mg/dl Est Creatinine Clear Calc Drug Dose 4.6 ml/min Estimated GFR () 6.5 Estimated GFR (Non- 5.6 BUN/Creatinine Ratio 9.3 Random Glucose 67 mg/dl Calcium Level 11.9 mg/dl Phosphorus Level 5.1 mg/dl Magnesium Level 2.5 mg/dl Test 06/10/16 20:47 06/11/16 04:44 Bedside Glucose 82 mg/dl Assessment & Plan hypercalcemia-unclear etiology to the chronic high calcium levels which appears she has had for several years. improving with fluids. checking spep, pth, vitamin d, 1,25 oh vitamin d, pthrp, joana. levels are pending. continue fluids since tolerating them well. DEMETRIO on ckd-has underlying ckd from vascular disease and advanced age. improving with the fluids. not uremic. hypermag-not on mag and mag levels are improving as kidney function improves.
[2016-06-11 07:40] LABS: BASO % 0.4 %; BASO ABS # 0.03 K/uL (0-0.2); EOS % 4.2 %; HEMATOCRIT 24.8 % (37-47); IG% 0.1 %; LYMPH % 21.5 %; LYMPH ABS # 1.44 K/uL (1.2-3.4); MEAN CORPUSCULAR HGB CONC 32.7 g/dl (32-36); MEAN PLATELET VOLUME 10.4 fL (7.4-10.4); MONO % 9.6 %; NEUT % 64.2 %; PLATELET COUNT 150 K/uL (130-400); RED BLOOD COUNT 2.61 M/uL (4.2-5.4)
[2016-06-11 08:12] LABS: COMPLETE YES; POIKILOCYTOSIS PRESENT
[2016-06-11] MEDS: BUDESONIDE/FORMOTEROL FUMARATE 160/4.5 60 PUFFS/INHALER INH SCH ×2 (08:19→20:46)
[2016-06-11] MEDS: METOPROLOL SUCC 50MG EXT REL TAB PO SCH (08:20)
[2016-06-11] MEDS: ATORVASTATIN 40 MG TAB PO SCH (08:20)
[2016-06-11] MEDS: AMLODIPINE BESYLATE 5 MG TAB PO SCH (08:20)
[2016-06-11] MEDS: CLOPIDOGREL BISULFATE 75 MG TAB PO SCH (08:20)
[2016-06-11] MEDS: OMEGA-3 (PURIFIED FISH OIL) 1 GM CAP PO SCH ×2 (08:21→20:46)
[2016-06-11] MEDS: PANTOprazole SOD 40 MG TAB PO SCH (08:21)
[2016-06-11] MEDS: HEPARIN SOD 5000 UNIT/0.5 ML CARP SQ SCH ×2 (08:32→20:48)
[2016-06-11 08:43] LABS: BUN/CREATININE RATIO 10.2 (10-20); CALCIUM 10.5 mg/dl (8.5-10.1); CREATININE 6.2 mg/dl (0.60-1.20); MAGNESIUM 2.2 mg/dl (1.8-2.4); PHOSPHORUS 4.1 mg/dl (2.5-4.9); POTASSIUM 4.3 mmol/L (3.5-5.1)
[2016-06-11] MEDS: CIPROFLOXACIN / D5W 400 MG in PREMIXED IN D5W 200 ML IV SCH (10:29)
--- NOTE | 2016-06-11 18:45 | Progress Note ---
Internal Med Progress Note Date of Service: Jun 11, 2016. Provider Documentation: SUBJECTIVE: says bed is very uncomfortably unhappy that she has to stay in hospital for few more days denies any sob no chest pain or cough afebrile OBJECTIVE: Vital Signs-as noted below Exam: General-alert and oriented x 3 ENT-normal hearing Neck-no neck masses Lungs-cta b/l no wheezing or crackles Heart-s1 and s2 heard regular rate and rhythm, no murmurs Abdomen-soft bowel sounds present non tender no distension Extremities-no edema no erythema Neuro-alert and awake moves extremities Lab data as noted below. ASSESSMENT & PLAN: This is a 70-year-old female who presents with abnormal labs. 1. Acute renal failure and chronic kidney disease stage 4. Baseline creatinine around 2, presents with a creatinine of 7.3. Mostly pre renal Started on IV fluids as per nephrology recommendation cr improved to 6.2 todasy. To continue current fluids as per nephrology and close monitor for volume overload.CXR mild interstitial disease. will f/u. 2. Hypercalcemia. Presented with Calcium of 14.4. The patient has previous labs, around 10-11. On iv ns@150ml/hr ca today 1o.5. f/u labs in am.Workup as per nephrology 3. History of chronic systolic congestive heart failure with an ejection fraction of around 45%-49%. Global hypokinesis, etiology unknown. Not on any diuretics. We will monitor for volume overload as the patient is getting fluids at this time.Stable 4. Diverticulitis mild on ct scan started on Cipro and Flagyl. follow up colonoscopy as out patinet in 6 weeks. 5. History of peripheral vascular disease, status post surgery, the patient is on Plavix and statin which we will continue. 6. History of type 1 diabetes. We will hold the NovoLog mix and metformin, place on small dose of Lantus and insulin sliding scale and follow the blood sugars.hypoglycemic epiosddes.Will stop Lantus Will adjust ISS and monitor. 7. History of constipation going on for several days. We will follow the CT of the abdomen and pelvis.Miralax daily 8. History of chronic obstructive pulmonary disease, severe, on home oxygen. We will continue home inhalers and nebs and oxygen.Stable 9. History of coronary artery disease, continue her medication of metoprolol, Plavix and statin. 10. History of hypertension. Continue amlodipine, terazosin and metoprolol. Follow the blood pressure. 11. History of gastroesophageal reflux disease. Continue Protonix. 12. Deep venous thrombosis prophylaxis, heparin subQ and sequential compression devices. 13. Disposition: Close monitor in tele floor. Level 1 full code if chance of recovery. Vital Signs: Date Time Temp Pulse Resp B/P Pulse Ox O2 Delivery O2 Flow Rate FiO2 06/11/16 15:10 36.5 65 20 120/47 98 2.0 06/11/16 12:46 36.3 65 20 113/43 98 2.0 06/11/16 12:00 Nasal Cannula 2.0 06/11/16 08:15 36.7 64 20 124/47 98 06/11/16 08:00 Nasal Cannula 2.0 06/11/16 05:12 37.1 68 18 124/47 92 2.0 06/11/16 04:00 Nasal Cannula 2.0 06/11/16 00:00 Nasal Cannula 2.0 06/10/16 20:00 96 Nasal Cannula 2.0 06/10/16 19:18 36.7 80 20 143/57 96 Nasal Cannula 2.0 Lab Results: Results Past 24 Hours Test 06/10/16 20:47 06/11/16 07:15 06/11/16 08:02 06/11/16 08:26 Range/Units Bedside Glucose 82 65 81 70-90 mg/dl White Blood Count 6.70 4.8-10.8 K/uL Red Blood Count 2.61 4.2-5.4 M/uL Hemoglobin 8.1 12.0-16.0 g/dL Hematocrit 24.8 37-47 % Mean Corpuscular Volume 95.0 80-100 fL Mean Corpuscular Hemoglobin 31.0 25-34 pg Mean Corpuscular Hemoglobin Concent 32.7 32-36 g/dl Platelet Count 150 130-400 K/uL Mean Platelet Volume 10.4 7.4-10.4 fL Neutrophils (%) (Auto) 64.2 % Lymphocytes (%) (Auto) 21.5 % Monocytes (%) (Auto) 9.6 % Eosinophils (%) (Auto) 4.2 % Basophils (%) (Auto) 0.4 % Neutrophils # (Auto) 4.30 1.4-6.5 K/uL Lymphocytes # (Auto) 1.44 1.2-3.4 K/uL Monocytes # (Auto) 0.64 0.11-0.59 K/uL Eosinophils # (Auto) 0.28 0-0.5 K/uL Basophils # (Auto) 0.03 0-0.2 K/uL RDW Standard Deviation 49.3 36.4-46.3 fL RDW Coefficient of Variation 14.3 11.5-14.5 % Immature Granulocyte % (Auto) 0.1 % Immature Granulocyte # (Auto) 0.01 0.00-0.02 K/uL Poikilocytosis PRESENT Sodium Level 144 136-145 mmol/L Potassium Level 4.3 3.5-5.1 mmol/L Chloride Level 110 98-107 mmol/L Carbon Dioxide Level 25 21-32 mmol/L Anion Gap 9.0 3-11 mmol/L Blood Urea Nitrogen 64 7-18 mg/dl Creatinine 6.20 0.60-1.20 mg/dl Est Creatinine Clear Calc Drug Dose 6.8 ml/min Estimated GFR () 6.9 Estimated GFR (Non- 5.9 BUN/Creatinine Ratio 10.2 10-20 Random Glucose 63 70-99 mg/dl Calcium Level 10.5 8.5-10.1 mg/dl Phosphorus Level 4.1 2.5-4.9 mg/dl Magnesium Level 2.2 1.8-2.4 mg/dl 25-Hydroxy Vitamin D Total 58.5 30-100 ng/ml Parathyroid Hormone (Intact) 23.8 11.1-79.5 pg/mL Test 06/11/16 11:56 06/11/16 16:29 Range/Units Bedside Glucose 113 85 70-90 mg/dl
[2016-06-12] VITALS (16 sets, daily range): BP systolic 124–145; BP diastolic 42–66; PULSE 70–87; TEMP 36.7–37; O2SAT 91–97
[2016-06-12] MEDS: ALBUT/IPRATROP 3MG/0.5MG NEB 3 ML VIAL INH PRN ×4 (00:24→20:09)
[2016-06-12] MEDS: METRONIDAZOLE / NSS 500 MG in PREMIXED NSS 100 ML IV SCH ×2 (02:55→10:11)
[2016-06-12] MEDS: SODIUM CHLORIDE 0.9% 1000ML 1,000 ML IV SCH ×3 (04:30→23:37)
[2016-06-12 06:32] LABS: BASO % 0.6 %; BASO ABS # 0.03 K/uL (0-0.2); EOS % 5.6 %; HEMATOCRIT 25.5 % (37-47); IG% 0.2 %; LYMPH % 26.5 %; LYMPH ABS # 1.43 K/uL (1.2-3.4); MEAN CELL VOLUME 94.4 fL (80-100); MEAN CORPUSCULAR HEMOGLOBIN 30.7 pg (25-34); MEAN CORPUSCULAR HGB CONC 32.5 g/dl (32-36); MEAN PLATELET VOLUME 10.7 fL (7.4-10.4); MONO % 7.8 %; NEUT % 59.3 %; PLATELET COUNT 160 K/uL (130-400); WHITE BLOOD COUNT 5.39 K/uL (4.8-10.8)
[2016-06-12 07:07] LABS: ANISOCYTOSIS PRESENT; COMPLETE YES; HYPOCHROMIA PRESENT; MICROCYTOSIS PRESENT; POIKILOCYTOSIS PRESENT
[2016-06-12 07:15] LABS: BUN/CREATININE RATIO 11.6 (10-20); CALCIUM 9.8 mg/dl (8.5-10.1); CREATININE 5.4 mg/dl (0.60-1.20); MAGNESIUM 1.9 mg/dl (1.8-2.4); PHOSPHORUS 3.4 mg/dl (2.5-4.9)
[2016-06-12] MEDS: BUDESONIDE/FORMOTEROL FUMARATE 160/4.5 60 PUFFS/INHALER INH SCH ×2 (08:52→19:55)
[2016-06-12] MEDS: ATORVASTATIN 40 MG TAB PO SCH (08:54)
[2016-06-12] MEDS: AMLODIPINE BESYLATE 5 MG TAB PO SCH (08:55)
[2016-06-12] MEDS: POLYETHYLENE (MIRALAX) 17 GM PACK PO SCH (08:55)
[2016-06-12] MEDS: OMEGA-3 (PURIFIED FISH OIL) 1 GM CAP PO SCH ×2 (08:56→19:56)
[2016-06-12] MEDS: PANTOprazole SOD 40 MG TAB PO SCH (08:56)
[2016-06-12] MEDS: CLOPIDOGREL BISULFATE 75 MG TAB PO SCH (08:56)
[2016-06-12] MEDS: METOPROLOL SUCC 50MG EXT REL TAB PO SCH (08:56)
[2016-06-12] MEDS: HEPARIN SOD 5000 UNIT/0.5 ML CARP SQ SCH ×2 (08:57→20:02)
[2016-06-12] MEDS: INSULIN ASPART 100 UNITS/ML 3 ML PEN SC SCH ×4 (09:01→20:17)
[2016-06-12] MEDS: CIPROFLOXACIN / D5W 400 MG in PREMIXED IN D5W 200 ML IV SCH (11:39)
--- NOTE | 2016-06-12 13:14 | DIAGNOSTIC IMAGING REPORT ---
CHEST ONE VIEW PORTABLE CLINICAL HISTORY: Congestion. COMPARISON STUDY: Chest radiograph June 10, 2016. FINDINGS: A small left pleural effusion is noted. There is minimal left basilar opacity. There is no pneumothorax. Mild interstitial thickening is noted. There is no lobar consolidation. Mild cardiomegaly is noted. IMPRESSION: 1. Mild reticulonodular interstitial thickening. Mild pulmonary edema is favored. An infectious process could appear similar but is considered less likely. 2. Small left pleural effusion with associated left basilar opacity. Electronically signed by: Jean Paul Pagan M.D. 06/12/2016 1:12 PM Dictated Date/Time: 06/12/2016 1:09 PM
--- NOTE | 2016-06-12 19:23 | Progress Note ---
Internal Med Progress Note Date of Service: Jun 12, 2016. Provider Documentation: SUBJECTIVE: says felt some sob on earlier but ok now no chest pain no cough afebrile still constipated OBJECTIVE: Vital Signs-as noted below Exam: General-alert and oriented x 3 ENT-normal hearing Neck-no neck masses Lungs-cta b/l no wheezing or crackles Heart-s1 and s2 heard regular rate and rhythm, no murmurs Abdomen-soft bowel sounds present non tender no distension Extremities-no edema no erythema Neuro-alert and awake moves extremities Lab data as noted below. ASSESSMENT & PLAN: This is a 70-year-old female who presents with abnormal labs. 1. Acute renal failure and chronic kidney disease stage 4. Baseline creatinine around 2, presents with a creatinine of 7.3. Mostly pre renal Started on IV fluids as per nephrology recommendation cr improved to 5.4 today. To continue current fluids as per nephrology and close monitor for volume overload.CXR mild interstitial disease. will f/u. 2. Hypercalcemia. Presented with Calcium of 14.4. The patient has previous labs, around 10-11. changed fluids to iv ns@75ml/hr ca today 9.8. f/u labs in am.Workup as per nephrology 3. History of chronic systolic congestive heart failure with an ejection fraction of around 45%-49%. Global hypokinesis, etiology unknown. Not on any diuretics. We will monitor for volume overload as the patient is getting fluids at this time.Stable 4. Diverticulitis mild on ct scan started on Cipro and Flagyl. follow up colonoscopy as out patient in 6 weeks.Will consider Gi consult as patient having constipation with small hard stools for several weeks 5. History of peripheral vascular disease, status post surgery, the patient is on Plavix and statin which we will continue. 6. History of type 1 diabetes. We will hold the NovoLog mix and metformin, place on small dose of Lantus and insulin sliding scale and follow the blood sugars.hypoglycemic episodes.Will stop Lantus Will adjust ISS and monitor. 7. History of constipation going on for several days. We will follow the CT of the abdomen and pelvis.Miralax daily 8. History of chronic obstructive pulmonary disease, severe, on home oxygen. We will continue home inhalers and nebs and oxygen.Stable 9. History of coronary artery disease, continue her medication of metoprolol, Plavix and statin. 10. History of hypertension. Continue amlodipine, terazosin and metoprolol. Follow the blood pressure. 11. History of gastroesophageal reflux disease. Continue Protonix. 12. Deep venous thrombosis prophylaxis, heparin subQ and sequential compression devices. 13. Disposition: Close monitor in tele floor. Level 1 full code if chance of recovery. Vital Signs: Date Time Temp Pulse Resp B/P Pulse Ox O2 Delivery O2 Flow Rate FiO2 06/12/16 18:36 37.0 75 18 126/66 94 Nasal Cannula 2.0 Humidified Oxygen 06/12/16 16:01 36.9 87 20 124/62 94 Nasal Cannula 2.0 06/12/16 16:00 96 Nasal Cannula 2.0 06/12/16 14:37 75 18 91 Nasal Cannula 2.0 06/12/16 12:10 36.9 70 20 127/44 94 Nasal Cannula 2.0 06/12/16 12:00 96 Nasal Cannula 2.0 06/12/16 09:32 78 22 93 Nasal Cannula 2.0 06/12/16 08:00 94 Nasal Cannula 2.0 06/12/16 07:43 36.9 70 20 127/44 94 Nasal Cannula 2.0 06/12/16 04:00 Nasal Cannula 2.0 06/12/16 04:00 36.8 71 20 132/54 97 2.0 06/12/16 00:24 70 20 96 Nasal Cannula 2.0 06/12/16 00:21 36.7 70 20 124/52 95 2.0 06/12/16 00:00 Nasal Cannula 2.0 06/11/16 20:00 98 Nasal Cannula 2.0 06/11/16 19:42 36.9 67 19 116/56 94 Nasal Cannula 2.0 Lab Results: Results Past 24 Hours Test 06/11/16 19:59 06/12/16 05:52 06/12/16 07:33 06/12/16 11:30 Range/Units Bedside Glucose 89 96 92 70-90 mg/dl White Blood Count 5.39 4.8-10.8 K/uL Red Blood Count 2.70 4.2-5.4 M/uL Hemoglobin 8.3 12.0-16.0 g/dL Hematocrit 25.5 37-47 % Mean Corpuscular Volume 94.4 80-100 fL Mean Corpuscular Hemoglobin 30.7 25-34 pg Mean Corpuscular Hemoglobin Concent 32.5 32-36 g/dl Platelet Count 160 130-400 K/uL Mean Platelet Volume 10.7 7.4-10.4 fL Neutrophils (%) (Auto) 59.3 % Lymphocytes (%) (Auto) 26.5 % Monocytes (%) (Auto) 7.8 % Eosinophils (%) (Auto) 5.6 % Basophils (%) (Auto) 0.6 % Neutrophils # (Auto) 3.20 1.4-6.5 K/uL Lymphocytes # (Auto) 1.43 1.2-3.4 K/uL Monocytes # (Auto) 0.42 0.11-0.59 K/uL Eosinophils # (Auto) 0.30 0-0.5 K/uL Basophils # (Auto) 0.03 0-0.2 K/uL RDW Standard Deviation 49.6 36.4-46.3 fL RDW Coefficient of Variation 14.5 11.5-14.5 % Immature Granulocyte % (Auto) 0.2 % Immature Granulocyte # (Auto) 0.01 0.00-0.02 K/uL Hypochromasia PRESENT Poikilocytosis PRESENT Anisocytosis PRESENT Microcytosis PRESENT Sodium Level 146 136-145 mmol/L Potassium Level 4.0 3.5-5.1 mmol/L Chloride Level 114 98-107 mmol/L Carbon Dioxide Level 22 21-32 mmol/L Anion Gap 10.0 3-11 mmol/L Blood Urea Nitrogen 63 7-18 mg/dl Creatinine 5.40 0.60-1.20 mg/dl Est Creatinine Clear Calc Drug Dose 5.5 ml/min Estimated GFR () 8.1 Estimated GFR (Non- 7.0 BUN/Creatinine Ratio 11.6 10-20 Random Glucose 84 70-99 mg/dl Calcium Level 9.8 8.5-10.1 mg/dl Phosphorus Level 3.4 2.5-4.9 mg/dl Magnesium Level 1.9 1.8-2.4 mg/dl Test 06/12/16 16:42 Range/Units Bedside Glucose 131 70-90 mg/dl
[2016-06-12] MEDS: METRONIDAZOLE 500 MG TAB PO SCH (19:58)
[2016-06-13] VITALS (12 sets, daily range): BP systolic 120–132; BP diastolic 46–63; PULSE 71–86; TEMP 36.5–36.9; O2SAT 93–98
[2016-06-13] MEDS: INSULIN ASPART 100 UNITS/ML 3 ML PEN SC SCH ×3 (07:00→19:08)
[2016-06-13] MEDS: ALBUT/IPRATROP 3MG/0.5MG NEB 3 ML VIAL INH PRN ×3 (08:11→20:35)
[2016-06-13 08:30] LABS: BASO % 0.4 %; BASO ABS # 0.03 K/uL (0-0.2); EOS % 5.1 %; HEMATOCRIT 25.5 % (37-47); IG% 0.1 %; LYMPH % 19.2 %; LYMPH ABS # 1.35 K/uL (1.2-3.4); MEAN CELL VOLUME 92.7 fL (80-100); MEAN CORPUSCULAR HEMOGLOBIN 30.9 pg (25-34); MEAN CORPUSCULAR HGB CONC 33.3 g/dl (32-36); MEAN PLATELET VOLUME 10.4 fL (7.4-10.4); MONO % 7.7 %; NEUT % 67.5 %; PLATELET COUNT 158 K/uL (130-400); RED BLOOD COUNT 2.75 M/uL (4.2-5.4); WHITE BLOOD COUNT 7.03 K/uL (4.8-10.8)
[2016-06-13] MEDS: BUDESONIDE/FORMOTEROL FUMARATE 160/4.5 60 PUFFS/INHALER INH SCH (08:57)
[2016-06-13] MEDS: METRONIDAZOLE 500 MG TAB PO SCH ×2 (08:57→14:19)
[2016-06-13] MEDS: OMEGA-3 (PURIFIED FISH OIL) 1 GM CAP PO SCH (08:58)
[2016-06-13] MEDS: PANTOprazole SOD 40 MG TAB PO SCH (08:58)
[2016-06-13] MEDS: ATORVASTATIN 40 MG TAB PO SCH (08:59)
[2016-06-13 09:00] LABS: ACANTHOCYTES 1+; COMPLETE YES
[2016-06-13] MEDS: POLYETHYLENE (MIRALAX) 17 GM PACK PO SCH (09:00)
[2016-06-13] MEDS: CLOPIDOGREL BISULFATE 75 MG TAB PO SCH (09:00)
[2016-06-13] MEDS ORDERED: CIPROFLOXACIN 250 MG TAB PO SCH (09:00)
[2016-06-13] MEDS: AMLODIPINE BESYLATE 5 MG TAB PO SCH (09:00)
[2016-06-13] MEDS: METOPROLOL SUCC 50MG EXT REL TAB PO SCH (09:01)
[2016-06-13] MEDS: HEPARIN SOD 5000 UNIT/0.5 ML CARP SQ SCH (09:02)
[2016-06-13 09:11] LABS: BUN/CREATININE RATIO 11.7 (10-20); CALCIUM 9.2 mg/dl (8.5-10.1); CREATININE 4.7 mg/dl (0.60-1.20); POTASSIUM 3.8 mmol/L (3.5-5.1)
[2016-06-13] MEDS ORDERED: SODIUM CHLORIDE 0.45% 1000ML 1,000 ML IV SCH (09:45)
--- NOTE | 2016-06-13 15:42 | Nephrology Progress Note ---
Nephrology Progress Note Date of Service: Jun 13, 2016. Subjective had dyspnea yesterday and moved to [facility]; improved today; ambulating briefly w/ cane; remains constipated; denies voiding issues; dyspneic w/ minimal effort but less today Objective Date Time Temp Pulse Resp B/P Pulse Ox O2 Delivery O2 Flow Rate FiO2 06/13/16 15:08 36.5 86 20 94 2.0 06/13/16 12:22 36.5 86 20 125/57 94 06/13/16 12:00 95 Nasal Cannula 2.0 06/13/16 11:20 79 18 93 Nasal Cannula 2.0 06/13/16 08:11 71 18 95 Nasal Cannula 2.0 06/13/16 08:00 97 Nasal Cannula 2.0 06/13/16 07:16 36.7 74 20 132/63 97 Nasal Cannula 2.0 06/13/16 04:20 96 Nasal Cannula 2.0 06/13/16 03:48 36.9 76 16 120/46 93 Nasal Cannula 2.0 06/13/16 00:35 96 Nasal Cannula 2.0 06/12/16 23:35 36.9 85 20 127/42 94 Nasal Cannula 2.0 06/12/16 20:12 81 18 95 Nasal Cannula 2.0 06/12/16 20:00 96 Nasal Cannula 2.0 06/12/16 19:25 36.8 77 16 145/62 96 Nasal Cannula 2.0 06/12/16 18:36 37.0 75 18 126/66 94 Nasal Cannula 2.0 Humidified Oxygen 06/12/16 16:01 36.9 87 20 124/62 94 Nasal Cannula 2.0 06/12/16 16:00 96 Nasal Cannula 2.0 Physical Exam: General-aaox3, on 02nc Eyes-no scleral icterus ENT-mmm Neck-supple Lungs-cta w/ diminished bl bases Heart-rrr Abdomen-bs+ s/nt/nd, no garcia Extremities-no c/c/e Neuro-nonfocal Current Inpatient Medications Medications (Trade) Dose Ordered Sig/Jennifer Route Start Time Stop Time Status Last Admin Dose Admin Heparin Sodium (Porcine) (Heparin Sq 5000 Unit/0.5ml) 5,000 unit Q12 SQ 06/09/16 21:00 07/09/16 20:59 06/13/16 09:02 5,000 UNIT Acetaminophen (Tylenol Tab) 650 mg Q4H PRN PO 06/09/16 17:15 07/09/16 17:14 Al Hydrox/Mg Hydrox/Simethicone (Maalox Max Susp) 15 ml Q4H PRN PO 06/09/16 17:15 07/09/16 17:14 Ondansetron HCl (Zofran Inj) 4 mg Q6H PRN IV 06/09/16 17:15 07/09/16 17:14 Nitroglycerin (Nitrostat Tab) 0.4 mg UD PRN SL 06/09/16 17:15 07/09/16 17:14 Polyethylene (Miralax Powder Packet) 17 gm DAILY PRN PO 06/09/16 17:15 07/09/16 17:14 Amlodipine Besylate (Norvasc Tab) 10 mg QAM PO 06/10/16 09:00 07/10/16 08:59 06/13/16 09:00 10 MG Atorvastatin Calcium (Lipitor Tab) 80 mg DAILY PO 06/10/16 09:00 07/10/16 08:59 06/13/16 08:59 80 MG Clopidogrel Bisulfate (plAVix TAB) 75 mg DAILY PO 06/10/16 09:00 07/10/16 08:59 06/13/16 09:00 75 MG Fish Oil ([place]-3 (Purified Fish Oil) Cap) 1 gm BID PO 06/09/16 21:00 07/09/16 20:59 06/13/16 08:58 1 GM Metoprolol Succinate (Toprol Xl Tab) 100 mg DAILY PO 06/10/16 09:00 07/10/16 08:59 06/13/16 09:01 100 MG Terazosin HCl (Hytrin Cap) 2 mg DAILY PO 06/10/16 09:00 07/10/16 08:59 06/13/16 08:59 2 MG Albuterol/ Ipratropium (Combivent Respimat Inh) 1 puffs QID PRN INH 06/09/16 17:15 07/09/16 17:14 Pantoprazole Sodium (Protonix Tab) 40 mg DAILY PO 06/10/16 09:00 07/10/16 08:59 06/13/16 08:58 40 MG Insulin Aspart (novoLOG ASPART) SLIDING SCALE G... ACHS SC 06/09/16 21:00 07/09/16 20:59 06/13/16 12:26 4 UNITS Glucose (Glucose 40% Gel) 15-30 GRAMS 15 GRAMS... UD PRN PO 06/09/16 17:30 07/09/16 17:29 Glucose (Glucose Chew Tab) 4-8 Tablets 4 Tabl... UD PRN PO 06/09/16 17:30 07/09/16 17:29 Dextrose (Dextrose 50% 50ML Syringe) 25-50ML OF 50% DW IV FOR... UD PRN IV 06/09/16 17:30 07/09/16 17:29 Glucagon (Glucagon Inj) 1 mg UD PRN SQ 06/09/16 17:30 07/09/16 17:29 Albuterol/ Ipratropium (Duoneb) 3 ml QIDR PRN INH 06/09/16 20:00 07/09/16 19:59 06/13/16 11:20 3 ML Budesonide/ Formoterol Fumarate (Symbicort 160/ 4.5 Inh) 2 puffs BID INH 06/09/16 21:00 07/09/16 20:59 06/13/16 08:57 2 PUFFS Ciprofloxacin (Consult) 1 ea UD PRN N/A 06/10/16 09:30 07/10/16 09:29 Polyethylene (Miralax Powder Packet) 17 gm DAILY PO 06/12/16 09:00 07/12/16 08:59 06/13/16 09:00 17 GM Ciprofloxacin (Ciprofloxacin Tab) 250 mg BID PO 06/13/16 09:00 06/19/16 23:59 06/13/16 08:58 250 MG Metronidazole 500 mg 500 mg TID PO 06/12/16 21:00 06/20/16 20:59 06/13/16 14:19 500 MG Sodium Chloride (1/2 Nss 1000ml) 1,000 ml @ 75 mls/hr [id number] IV 06/13/16 09:45 07/13/16 09:44 06/13/16 10:00 75 MLS/HR Last 24 Hours Test 06/12/16 16:42 06/12/16 20:17 06/13/16 06:53 06/13/16 08:15 Bedside Glucose 131 mg/dl 95 mg/dl 87 mg/dl White Blood Count 7.03 K/uL Red Blood Count 2.75 M/uL Hemoglobin 8.5 g/dL Hematocrit 25.5 % Mean Corpuscular Volume 92.7 fL Mean Corpuscular Hemoglobin 30.9 pg Mean Corpuscular Hemoglobin Concent 33.3 g/dl Platelet Count 158 K/uL Mean Platelet Volume 10.4 fL Neutrophils (%) (Auto) 67.5 % Lymphocytes (%) (Auto) 19.2 % Monocytes (%) (Auto) 7.7 % Eosinophils (%) (Auto) 5.1 % Basophils (%) (Auto) 0.4 % Neutrophils # (Auto) 4.74 K/uL Lymphocytes # (Auto) 1.35 K/uL Monocytes # (Auto) 0.54 K/uL Eosinophils # (Auto) 0.36 K/uL Basophils # (Auto) 0.03 K/uL RDW Standard Deviation 50.1 fL RDW Coefficient of Variation 14.8 % Immature Granulocyte % (Auto) 0.1 % Immature Granulocyte # (Auto) 0.01 K/uL Acanthocytes 1+ Sodium Level 147 mmol/L Potassium Level 3.8 mmol/L Chloride Level 116 mmol/L Carbon Dioxide Level 21 mmol/L Anion Gap 10.0 mmol/L Blood Urea Nitrogen 54 mg/dl Creatinine 4.70 mg/dl Est Creatinine Clear Calc Drug Dose 7.1 ml/min Estimated GFR () 9.6 Estimated GFR (Non- 8.3 BUN/Creatinine Ratio 11.7 Random Glucose 101 mg/dl Calcium Level 9.2 mg/dl Test 06/13/16 11:42 Bedside Glucose 135 mg/dl Assessment & Plan 76 yo female with demetrio on ckd with hypercalcemia which is improving on iv fluids. tolerating fluids well. being treated for mild diverticulitis > for outpt GI f/u colonoscopy in 6 wks. chronic systolic HF w/ ef about 45%. hypercalcemia-unclear etiology to the chronic high calcium levels which appears she has had for several years. normalized with fluids. checking spep,1,25 oh vitamin d, pthrp, joana. most levels are pending. continue fluids since tolerating them so far. DEMETRIO on ckd 4-has underlying ckd from vascular disease and advanced age. improving with the fluids >> CXR w/ mild plm edema from yesterday noted; remains on same amount 02 and would continue IVF for now; simply stop these if breathing worsens; avoid lasix if possible. not uremic. baseline creat in 2s hypernatremia > mild; change IVF to 1/2 ns, which may also help w/ lungs.
--- NOTE | 2016-06-13 18:13 | Progress Note ---
Internal Med Progress Note Date of Service: Jun 13, 2016. Provider Documentation: SUBJECTIVE: resting comfortably denies sob no cough 'afebrile not moved bowels today eating ok OBJECTIVE: Vital Signs-as noted below Exam: General-alert and oriented x 3 ENT-normal hearing Neck-no neck masses Lungs-cta b/l no wheezing or crackles Heart-s1 and s2 heard regular rate and rhythm, no murmurs Abdomen-soft bowel sounds present non tender no distension Extremities-no edema no erythema Neuro-alert and awake moves extremities Lab data as noted below. ASSESSMENT & PLAN: This is a 70-year-old female who presents with abnormal labs. 1. Acute renal failure and chronic kidney disease stage 4. Baseline creatinine around 2, presents with a creatinine of 7.3. Mostly pre renal Started on IV fluids as per nephrology recommendation cr improved to 4.7 today. fluis changed to 1/2ns@75ml/hr as per nephrology..CXR mild interstitial disease. will f/u. 2. Hypercalcemia. Presented with Calcium of 14.4. The patient has previous labs, around 10-11. changed fluids to iv ns@75ml/hr ca today 9.8. f/u labs in am.Workup as per nephrology-pending 3. History of chronic systolic congestive heart failure with an ejection fraction of around 45%-49%. Global hypokinesis, etiology unknown. Not on any diuretics. We will monitor for volume overload as the patient is getting fluids at this time.Stable 4. Diverticulitis mild on ct scan started on Cipro and Flagyl. follow up colonoscopy as out patient in 6 weeks.Will consider Gi consult as patient having constipation with small hard stools for several weeks stable Stable conditions: 5. History of peripheral vascular disease, status post surgery, the patient is on Plavix and statin which we will continue. 6. History of type 1 diabetes. We will hold the NovoLog mix and metformin, place on small dose of Lantus and insulin sliding scale and follow the blood sugars.hypoglycemic episodes.Will stop Lantus Will adjust ISS and monitor. 7. History of constipation going on for several days. We will follow the CT of the abdomen and pelvis.Miralax daily 8. History of chronic obstructive pulmonary disease, severe, on home oxygen. We will continue home inhalers and nebs and oxygen.Stable 9. History of coronary artery disease, continue her medication of metoprolol, Plavix and statin. 10. History of hypertension. Continue amlodipine, terazosin and metoprolol. Follow the blood pressure. 11. History of gastroesophageal reflux disease. Continue Protonix. 12. Deep venous thrombosis prophylaxis, heparin subQ and sequential compression devices. 13. Disposition: Transfer to medical floor. Level 1 full code if chance of recovery. pt/ot Vital Signs: Date Time Temp Pulse Resp B/P Pulse Ox O2 Delivery O2 Flow Rate FiO2 06/13/16 15:10 36.6 79 18 123/54 98 Nasal Cannula 2.0 06/13/16 15:10 93 Nasal Cannula 2.0 06/13/16 15:08 36.5 86 20 94 2.0 06/13/16 12:22 36.5 86 20 125/57 94 06/13/16 12:00 95 Nasal Cannula 2.0 06/13/16 11:20 79 18 93 Nasal Cannula 2.0 06/13/16 08:11 71 18 95 Nasal Cannula 2.0 06/13/16 08:00 97 Nasal Cannula 2.0 06/13/16 07:16 36.7 74 20 132/63 97 Nasal Cannula 2.0 06/13/16 04:20 96 Nasal Cannula 2.0 06/13/16 03:48 36.9 76 16 120/46 93 Nasal Cannula 2.0 06/13/16 00:35 96 Nasal Cannula 2.0 06/12/16 23:35 36.9 85 20 127/42 94 Nasal Cannula 2.0 06/12/16 20:12 81 18 95 Nasal Cannula 2.0 06/12/16 20:00 96 Nasal Cannula 2.0 06/12/16 19:25 36.8 77 16 145/62 96 Nasal Cannula 2.0 06/12/16 18:36 37.0 75 18 126/66 94 Nasal Cannula 2.0 Humidified Oxygen Lab Results: Results Past 24 Hours Test 06/12/16 20:17 06/13/16 06:53 06/13/16 08:15 06/13/16 11:42 Range/Units Bedside Glucose 95 87 135 70-90 mg/dl White Blood Count 7.03 4.8-10.8 K/uL Red Blood Count 2.75 4.2-5.4 M/uL Hemoglobin 8.5 12.0-16.0 g/dL Hematocrit 25.5 37-47 % Mean Corpuscular Volume 92.7 80-100 fL Mean Corpuscular Hemoglobin 30.9 25-34 pg Mean Corpuscular Hemoglobin Concent 33.3 32-36 g/dl Platelet Count 158 130-400 K/uL Mean Platelet Volume 10.4 7.4-10.4 fL Neutrophils (%) (Auto) 67.5 % Lymphocytes (%) (Auto) 19.2 % Monocytes (%) (Auto) 7.7 % Eosinophils (%) (Auto) 5.1 % Basophils (%) (Auto) 0.4 % Neutrophils # (Auto) 4.74 1.4-6.5 K/uL Lymphocytes # (Auto) 1.35 1.2-3.4 K/uL Monocytes # (Auto) 0.54 0.11-0.59 K/uL Eosinophils # (Auto) 0.36 0-0.5 K/uL Basophils # (Auto) 0.03 0-0.2 K/uL RDW Standard Deviation 50.1 36.4-46.3 fL RDW Coefficient of Variation 14.8 11.5-14.5 % Immature Granulocyte % (Auto) 0.1 % Immature Granulocyte # (Auto) 0.01 0.00-0.02 K/uL Acanthocytes 1+ Sodium Level 147 136-145 mmol/L Potassium Level 3.8 3.5-5.1 mmol/L Chloride Level 116 98-107 mmol/L Carbon Dioxide Level 21 21-32 mmol/L Anion Gap 10.0 3-11 mmol/L Blood Urea Nitrogen 54 7-18 mg/dl Creatinine 4.70 0.60-1.20 mg/dl Est Creatinine Clear Calc Drug Dose 7.1 ml/min Estimated GFR () 9.6 Estimated GFR (Non- 8.3 BUN/Creatinine Ratio 11.7 10-20 Random Glucose 101 70-99 mg/dl Calcium Level 9.2 8.5-10.1 mg/dl
[2016-06-13] MEDS ORDERED: NURSING VERBAL MED ORDER ONE (19:00)
[2016-06-13] MEDS ORDERED: MTR500 PO (19:51)
[2016-06-13] MEDS ORDERED: CPR250 PO (19:51)
--- NOTE | 2016-06-13 19:56 | Discharge Instructions ---
Discharge Instructions Admission Reason for Admission: Arf,Hypercalcemia Discharge Discharge Diagnosis / Problem: ARF,HYPERCALCEMIA Discharge Goals Goal(s): Decrease discomfort, Improve function Activity Recommendations Activity Limitations: resume your previous activity . Instructions / Follow-Up Instructions / Follow-Up FOLLOWUP WITH FAMILY DOCTOR SOON POSSIBLE. LAB: BMP IN 1-3 DAYS AND FOLLOW RESULTS WITH FAMILY DOCTOR. STOPPED DIABETES MEDICATION SECONDARY TO KIDNEY FAILURE AND SUGARS RUNNING LOW CLOSELY MONITOR BLOOD SUGARS FOUR TIMES DAILY : BEFORE BREAKFAST, LUNCH, DINNER AND BEFORE GOING TO SLEEP AND NOTIFY FAMILY DOCTOR IF BLOOD SUGARS RUNNING > 200 OR LESS THAN 80. TO TAKE SUGAR IF BLOOD SUGAR BELOW 80. NEEDS COLONOSCOPY IN 6-8 WEEKS FOR DIVERTICULITIS WITH FAMILY DOCTOR REFERRAL. REPORT TO ER FOR ANY CHANGE IN MEDICAL CONDITION Current Hospital Diet Patient's current hospital diet: Diabetes Type 1 Diet, Renal Diet, Regular Diet Discharge Diet Recommended Diet: Diabetes Type 2 Diet, Renal Diet Pending Studies Studies pending at discharge: no Laboratory Results Hemoglobin A1c Test 06/10/16 06:13 Range/Units Estimated Average Glucose 171 mg/dl Hemoglobin A1c 7.6 H 4.5-5.6 % Medical Emergencies . Who to Call and When: Medical Emergencies: If at any time you feel your situation is an emergency, please call 911 immediately. . Non-Emergent Contact Non-Emergency issues call your: Primary Care Provider . . "Provider Documentation" section prepared by Elliott Pascual. VTE Core Measure Inpt VTE Proph given/why not?: Unfractionated heparin SQ
[2016-06-16 02:22] LABS: ALBUMIN 2.7 G/DL (3.8-4.8); GAMMA GLOBULIN 0.5 G/DL (0.8-1.7); PARATHYR RELATED PROT *34478X 28 pg/mL (14-27); TOTAL PROTEIN 4.8 G/DL (6.2-8.3)
--- NOTE | 2016-06-16 18:34 | Discharge Summary ---
Discharge Summary Admission Date: Jun 09, 2016 at 17:11 Discharge Date: Jun 13, 2016 Discharge Disposition: Home (SIGNED OUT AMA) Principal Diagnosis: ARF HYPERCALCEMIA MILD DIVERTICULITIS Secondary Diagnoses/Problems: type 1 diabetes, chronic kidney disease stage 4, history of CAD, history of carotid stenosis, history of nontoxic multinodular goiter, history of peripheral vascular disease, history of gastric ulcer with acute hemorrhage, history of GERD, history of congenital anomaly of the peripheral vascular system, history of systolic CHF with an EF of around 45%-50%, , history of hyperlipidemia, history of COPD, severe, on home oxygen; history of calculus of gallbladder Procedures: CXR:No acute cardiopulmonary findings. CT ABD/PELVIS: 1. Trace ascites. 2. Gallstones within what appears be a moderately contracted gallbladder. 3. Atherosclerotic change abdominal and pelvic arterial vasculature progressive compared to the prior exam. 4. Mild acute sigmoid diverticulitis superimposed upon chronic diverticuli change. 5. No evidence for abscess collection or obstructive change. Consultations: NEPHROLOGY Medication Reconciliation New Medications: Ciprofloxacin (Ciprofloxacin HCl) 250 Mg Tab 250 MG PO BID for 7 Days, TAB Metronidazole (Metronidazole) 500 Mg Tab 500 MG PO TID for 7 Days, TAB Continued Medications: Acetaminophen Tab (Tylenol) 325 Mg Tab 650 MG PO Q4 PRN for Headache or Pain, TAB Amlodipine Besylate (Amlodipine Besylate) 5 Mg Tab 10 MG PO QAM for 90 Days, #90 TAB 2 Refills Atorvastatin (Lipitor) 80 Mg Tab 1 TAB PO DAILY for 30 Days, #30 TAB 5 Refills Budesonide/Formoterol Fumarate (Symbicort 160/4.5 Inhaler) 120 Puffs/ Aero 2 PUFFS INH BID for 30 Days, #1 INHALER 3 Refills Clopidogrel (Plavix) 75 Mg Tab 75 MG PO DAILY Fish Oil (Depue-3) 1 Ea Cap 1 CAP PO BID, CAP Ipratropium-Albuterol (Duoneb) Aranza 1 TREATMENT INH QID, INHA Ipratropium/Albuterol (Combivent) Aer 2 PUFFS INH QID PRN for Shortness of Breath, INH Metoprolol Succ (Toprol Xl) (Toprol-Xl ) 100 Mg Tabcr 100 MG PO DAILY, TAB Nitroglycerin (Nitrostat) 0.4 Mg Tab 0.4 MG UT PRN, BTL Pantoprazole Sodium (Protonix) 20 Mg Tab 20 MG PO DAILY, TAB Terazosin Hcl (Hytrin) 2 Mg Cap 2 MG PO DAILY, CAP Discontinued Medications: Insulin Aspart Protamine & Asp (Novolog Mix 70/30 Prefill) 1 Inj Inj 5 UNITS SQ BIDM, #15 TAKE WITH BRFK & SUPPER Sitagliptin (Januvia) 25 Mg Tab 25 MG PO DAILY, TAB Admission Information HPI (per Admitting provider): This is a 76-year-old female with past medical history significant for type 1 diabetes, chronic kidney disease stage 4, history of CAD, history of carotid stenosis, history of nontoxic multinodular goiter, history of peripheral vascular disease, history of gastric ulcer with acute hemorrhage, history of GERD, history of congenital anomaly of the peripheral vascular system, history of systolic CHF with an EF of around 45%-50%, , history of hyperlipidemia, history of COPD, severe, on home oxygen; history of calculus of gallbladder without cholecystitis without obstruction comes because of abnormal labs. The patient says since last 2-3 weeks she has been dry in her mouth and also she was feeling numbness in her lower extremities on and off. She had labs done by her primary care physician and was told that she has to go to the ER because of significant abnormal labs and labs drawn in the ER shows a creatinine of 7.3, and calcium of 14.4. Her baseline creatinine is around 2 and her calcium is also in the 10s to 11 range as an outpatient. The patient is chronically on home oxygen for her COPD, currently resting comfortably. Denies any nausea or vomiting. Denies any chest pain. Denies any shortness of breath. Denies any cough. Denies any headaches or blurred vision. No abdominal pain. Says appetite is very poor. She says she has constipation for a long time and she goes only very hard stools. She lives alone. She has ambulatory dysfunction, but she can get around in the house. Her brother comes and checks on her and her niece comes and checks on her. She is not following with any kidney doctor. Physical Exam (per Admitting): GENERAL: The patient is old and frail, not in distress. VITAL SIGNS: Temperature 36.6, pulse 84, respiratory rate 21, blood pressure 134/53, oxygen 100% on 2 liters. HEENT: No pallor, no icterus. Pupils equal, round, and reactive to light. Oral mucosa dry. NECK: No JVD, no neck masses, no carotid bruits. CARDIOVASCULAR: S1, S2 heard, regular rate and rhythm, no murmur, no gallop. RESPIRATORY SYSTEM: Normal AP diameter. No accessory muscle use. No wheezing, no crackles. ABDOMEN: Soft, bowel sounds present. Nontender. No distention. CENTRAL NERVOUS SYSTEM: Cranial nerves II through XII grossly intact. Nonfocal. EXTREMITIES: No edema, no erythema. Hospital Course PATIENT WAS NOT KEEN FOR ADMISSION AND WANTED TO BE DISCHARGED SOON. SEEMED TO BE OK TO STAY IN HOSPITAL FOR FEW MORE DAYS BUT LATER IN THE DAY TODAY 06/13/16 PATIENT WANTED TO JUST GO HOME. EVEN AFTER EXPLAINING THAT HER RENAL FUNCTION IS NOT BACK TO BASELINE AND LABS FOR HYPERCALCEMIA STILL PENDING PATIENT ADAMANTLY WANTED TO GO HOME. SHE CALLED HER BROTHER TO PICK HER UP. DISCUSSED WITH BROTHER AND PATIENT AGAIN THAT HER KIDNEY FUNCTION MAY WORSEN AND SHE MAY BUT PATIENT SAY SHE IS OK DYING IN HER HOUSE. BROTHER WANTED TO GO WITH PATIENT WISHES AND OK FOR SIGNING OUT AMA. ADVISED TO FOLLOWUP WITH PCP SOON POSSIBLE. PATIENT SIGNED OUT AMA. HOSPITAL COURSE: This is a 70-year-old female who presents with abnormal labs. 1. Acute renal failure and chronic kidney disease stage 4. Baseline creatinine around 2, presents with a creatinine of 7.3. Mostly pre renal Started on IV fluids as per nephrology recommendation cr improved to 4.7 today. fluis changed to 1/2ns@75ml/hr as per nephrology..CXR mild interstitial disease. will f/u. 2. Hypercalcemia. Presented with Calcium of 14.4. The patient has previous labs, around 10-11. changed fluids to iv ns@75ml/hr ca today 9.8. f/u labs in am.Workup as per nephrology-pending 3. History of chronic systolic congestive heart failure with an ejection fraction of around 45%-49%. Global hypokinesis, etiology unknown. Not on any diuretics. We will monitor for volume overload as the patient is getting fluids at this time.Stable 4. Diverticulitis mild on ct scan started on Cipro and Flagyl. follow up colonoscopy as out patient in 6 weeks.Will consider Gi consult as patient having constipation with small hard stools for several weeks stable 5. History of peripheral vascular disease, status post surgery, the patient is on Plavix and statin which we will continue. 6. History of type 1 diabetes. We will hold the NovoLog mix and metformin, place on small dose of Lantus and insulin sliding scale and follow the blood sugars.hypoglycemic episodes.Will stop Lantus Will adjust ISS and monitor.ADVISED TO STOP HOME INSULIN FOR NOW AND FOLLOWUP WITH PCP CLOSELY. ADVISED TO CHECK BLOOD SUGARS REGULARLY AND CALL PCP IF BLOOD SUGARS GO HIGH. 7. History of constipation going on for several days. We will follow the CT of the abdomen and pelvis.Miralax daily 8. History of chronic obstructive pulmonary disease, severe, on home oxygen. We will continue home inhalers and nebs and oxygen.Stable 9. History of coronary artery disease, continue her medication of metoprolol, Plavix and statin. 10. History of hypertension. Continue amlodipine, terazosin and metoprolol. Follow the blood pressure. 11. History of gastroesophageal reflux disease. Continue Protonix. 12. Deep venous thrombosis prophylaxis, heparin subQ and sequential compression devices. 13. Disposition: Transfer to medical floor. Level 1 full code if chance of recovery. pt/ot Total time spent on discharge = 40MINUTES This includes examination of the patient, discharge planning, medication reconciliation, and communication with other providers. Discharge Instructions Discharge Instructions Admission Reason for Admission: Arf,Hypercalcemia Discharge Discharge Diagnosis / Problem: ARF,HYPERCALCEMIA Discharge Goals Goal(s): Decrease discomfort, Improve function Activity Recommendations Activity Limitations: resume your previous activity . Instructions / Follow-Up Instructions / Follow-Up FOLLOWUP WITH FAMILY DOCTOR SOON POSSIBLE. LAB: BMP IN 1-3 DAYS AND FOLLOW RESULTS WITH FAMILY DOCTOR. STOPPED DIABETES MEDICATION SECONDARY TO KIDNEY FAILURE AND SUGARS RUNNING LOW CLOSELY MONITOR BLOOD SUGARS FOUR TIMES DAILY : BEFORE BREAKFAST, LUNCH, DINNER AND BEFORE GOING TO SLEEP AND NOTIFY FAMILY DOCTOR IF BLOOD SUGARS RUNNING > 200 OR LESS THAN 80. TO TAKE SUGAR IF BLOOD SUGAR BELOW 80. REPORT TO ER FOR ANY CHANGE I N MEDICAL CONDITION Current Hospital Diet Patient's current hospital diet: Diabetes Type 1 Diet, Renal Diet, Regular Diet Discharge Diet Recommended Diet: Diabetes Type 2 Diet, Renal Diet Pending Studies Studies pending at discharge: no Laboratory Results Hemoglobin A1c Test 06/10/16 06:13 Range/Units Estimated Average Glucose 171 mg/dl Hemoglobin A1c 7.6 H 4.5-5.6 % Medical Emergencies . Who to Call and When: Medical Emergencies: If at any time you feel your situation is an emergency, please call 911 immediately. . Non-Emergent Contact Non-Emergency issues call your: Primary Care Provider . . "Provider Documentation" section prepared by Elliott Pascual. VTE Core Measure Inpt VTE Proph given/why not?: Unfractionated heparin SQ
== END 2016-06-13 20:15 | disposition home health service (06) | DRG 683 ==
LOC: ENRESERVDT → ENRESERVTM → C.EDB 12:57 → C.MED 17:11 → C.2T 06-12 18:27 → C.MS4W 06-13 15:34
PROVIDERS: ADMIT Internal Medicine; ATTEND Internal Medicine
DX: N17.9 Acute kidney failure, unspecified (principal); I50.22 Chronic systolic (congestive) heart failure; I13.0 Hypertensive heart and chronic kidney disease with heart failure and stage 1 through stage 4 chronic kidney disease, or unspecified chronic kidney disease; K57.92 Diverticulitis of intestine, part unspecified, without perforation or abscess without bleeding; J84.9 Interstitial pulmonary disease, unspecified; N18.4 Chronic kidney disease, stage 4 (severe); I25.10 Atherosclerotic heart disease of native coronary artery without angina pectoris; E83.52 Hypercalcemia; J44.9 Chronic obstructive pulmonary disease, unspecified; K21.9 Gastro-esophageal reflux disease without esophagitis; I73.9 Peripheral vascular disease, unspecified; Z79.02 Long term (current) use of antithrombotics/antiplatelets; E10.9 Type 1 diabetes mellitus without complications; Z79.4 Long term (current) use of insulin; E78.5 Hyperlipidemia, unspecified; Z99.81 Dependence on supplemental oxygen; Z88.1 Allergy status to other antibiotic agents; Z87.891 Personal history of nicotine dependence; I44.0 Atrioventricular block, first degree; K59.00 Constipation, unspecified

== ENCOUNTER 2016-08-13 11:48 | Inpatient (IN) | payer OTHER ==
[~2016-08-13] VITALS: Ht 152.4 cm; Wt 39.0 kg
[~2016-08-13 11:48] MED LIST changes: +CPR250 PO; -INSUINJ13 SQ; -LVQ250 PO; +MTR500 PO; -SITA25TA PO; +SYMIN160 INH
[2016-08-14] MEDS ORDERED: GLUCOSE 40% GEL 15 GM TUBE PO PRN (12:00)
[2016-08-14] MEDS ORDERED: GLUCAGON FOR INJ 1 MG VIAL SQ PRN (12:00)
[2016-08-14] MEDS ORDERED: POLYETHYLENE (MIRALAX) 17 GM PACK PO PRN (12:00)
[2016-08-14] MEDS ORDERED: ONDANSETRON INJ 2 MG/ML 2 ML VIAL IV PRN (12:00)
[2016-08-14] MEDS ORDERED: GLUCOSE 10 TABS/TUBE PO PRN (12:00)
[2016-08-14] MEDS ORDERED: DEXTROSE 50% 50 ML SYR IV PRN (12:00)
[2016-08-14] MEDS ORDERED: ACETAMINOPHEN 325 MG TAB PO PRN (12:00)
[2016-08-14 12:18] VITALS: BP 94/70; PULSE 91; TEMP 36.7; Ht 152.4 cm; Wt 39.0 kg
[2016-08-14] MEDS ORDERED: PHARMACY GLYCEMIC MGMT CONSULT SCH (12:31)
--- NOTE | 2016-08-14 12:33 | DIAGNOSTIC IMAGING REPORT ---
CHEST ONE VIEW PORTABLE CLINICAL HISTORY: Hypercalcemia COMPARISON STUDY: 06/12/2016 FINDINGS: The cardiac and mediastinal contours are normal. There is no evidence of focal pulmonary consolidation. There is no evidence of failure. No pleural effusions are visualized.[ There are improving left basilar airspace opacities, likely are presenting resolving atelectasis. IMPRESSION: Resolving left basilar atelectasis. Interval resolution of the previously described mild pulmonary edema. No acute findings. Electronically signed by: Cole Ro M.D. 08/14/2016 12:32 PM Dictated Date/Time: 08/14/2016 12:30 PM
[2016-08-14] MEDS ORDERED: NITROGLYCERIN 0.4 MG SL PER TAB CHARGE UT PRN (12:45)
[2016-08-14 12:48] LABS: HEMATOCRIT 31.5 % (37-47); MEAN CELL VOLUME 92.4 fL (80-100); MEAN CORPUSCULAR HEMOGLOBIN 31.1 pg (25-34); MEAN CORPUSCULAR HGB CONC 33.7 g/dl (32-36); MEAN PLATELET VOLUME 9.3 fL (7.4-10.4); PLATELET COUNT 192 K/uL (130-400); RED BLOOD COUNT 3.41 M/uL (4.2-5.4); WHITE BLOOD COUNT 9.87 K/uL (4.8-10.8)
[2016-08-14 12:58] LABS: PARTIAL THROMBOPLASTIN RATIO 0.8; PROTHROMBIN TIME (PATIENT) 10.3 SECONDS (9.0-12.0)
[2016-08-14] MEDS ORDERED: IPRATROPIUM BROMIDE/ALBUTEROL respimat INH INH PRN (13:00)
[2016-08-14 13:07] LABS: BUN/CREATININE RATIO 14.1 (10-20); CALCIUM 10.9 mg/dl (8.5-10.1); CREATININE 3.4 mg/dl (0.60-1.20); MAGNESIUM 2.6 mg/dl (1.8-2.4); POTASSIUM 4.3 mmol/L (3.5-5.1)
[2016-08-14 13:10] LABS: PHOSPHORUS 2.5 mg/dl (2.5-4.9)
[2016-08-14] MEDS: SODIUM CHLORIDE 0.9% 1000ML 1,000 ML IV SCH ×2 (13:26→20:18)
--- NOTE | 2016-08-14 13:32 | History and Physical ---
History & Physical Date & Time of Service: Aug 14, 2016 at 12:22 Chief Complaint: Demetrio, Hypercalcemia Primary Care Physician: Dong Baumann M.D.(VERNELL) History of Present Illness Source: patient 76 yo female with Stage IV CKD, diabetes and vascular disease who presents as a direct admission from Nephrology 2/ rising calcium level and worsening kidney function. She was previously admitted in June for DEMETRIO and hypercalcemia and responded well to IVF. Nephrology has been following labs as an outpatient and noticed creat go to 3.2 and calcium to 13 from normal levels at prior discharge. The patient is asymptomatic at this time. She was given Zometa 4mg as an outpatient last week. Prior hypercalcemia workup revealed a vitamin D of 56, a PTH of 21 and a PTHrp of 27 with reference range 14-27. Of note, ROS does reveal some dysphagia to solids for the past 3 months. She states this is with certain foods only but has no problems with pills or liquids. She also reports some constipation recently. At home, she has a half bath downstairs and her full bath is upstairs. She cannot make it up the stairs because of chronic shortness of breath in setting of COPD, so she is forced to shower and bathe in the sink downstairs. We briefly discussed if she were interested in changing that situation by moving homes or going somewhere like rehab and she states that she doesn't want to leave her home and she is too old to move. Past Medical/Surgical History Medical Problems: (1) CAD (coronary artery disease) Permanent Comment: NSTEMI 01/2009 - BMS to distal left circumflex, cath at that time showed 100% proximal RCA occlusion Status: Chronic (2) CKD (chronic kidney disease), stage IV Status: Chronic (3) COPD, severe Permanent Comment: oxygen requiring at night Status: Chronic (4) DM type 2 (diabetes mellitus, type 2) Status: Chronic (5) Dyslipidemia Status: Chronic (6) Femoral artery aneurysm, right Permanent Comment: s/p repair Status: Chronic (7) GERD (gastroesophageal reflux disease) Status: Chronic (8) PVD (peripheral vascular disease) Status: Chronic Surgical Problems: (1) H/O aorto-femoral bypass Status: Chronic (2) History of hysterectomy Status: Chronic (3) Hx of appendectomy Status: Chronic (4) Hx of cataract surgery Status: Chronic (5) S/P carotid endarterectomy Permanent Comment: left in 2001, left carotid stent placed 2002 Status: Chronic (6) S/P femoral-popliteal bypass surgery Status: Chronic Family History Cardiac disorder FH: prostate cancer Social History Smoking Status: Former Smoker Smokeless Tobacco Use: No Alcohol Use: none Drug Use: none Marital Status: Housing status: lives alone Occupational Status: retired Immunizations History of Influenza Vaccine: Yes Influenza Vaccine Date: Mar 09, 2016 History of Tetanus Vaccine?: Yes Tetanus Immunization Date: Jan 04, 2008 History of Pneumococcal: Yes Pneumococcal Date: Aug 06, 2014 History of Hepatitis B Vaccine: Unknown Multi-Drug Resistant Organisms History of MDRO: No Allergies Coded Allergies: Codeine (Verified Allergy, Mild, 06/09/16) ABD DISTRESS Aspirin (Verified Allergy, Unknown, UNKNOWN, 06/09/16) PER HER DOCTOR, SHE IS NOT SUPPOSE TO TAKE IT BECAUSE OF HER KIDNEYS Home Medications Scheduled Amlodipine Besylate (Amlodipine Besylate), 10 MG PO QAM Atorvastatin (Lipitor), 1 TAB PO DAILY Budesonide/Formoterol Fumarate (Symbicort 160/4.5 Inhaler), 2 PUFFS INH BID Clopidogrel (Plavix), 75 MG PO DAILY Fish Oil ([place]-3), 1 CAP PO BID Metoprolol Succ (Toprol Xl) (Toprol-Xl ), 100 MG PO DAILY Nitroglycerin (Nitrostat), 0.4 MG UT PRN Pantoprazole Sodium (Protonix), 20 MG PO DAILY Terazosin Hcl (Hytrin), 2 MG PO DAILY Scheduled PRN Acetaminophen Tab (Tylenol), 650 MG PO Q4 PRN for Headache or Pain Ipratropium-Albuterol (Duoneb), 1 TREATMENT INH QID PRN for SOB/Wheezing Ipratropium/Albuterol (Combivent), 2 PUFFS INH QID PRN for Shortness of Breath Review of Systems Constitutional: No chills, No fever ENT: + trouble swallowing, No sore throat Respiratory: + shortness of breath (chronic), No cough Cardiovascular: No chest pain, No edema, No palpitations Abdomen: + constipation, No diarrhea, No nausea, No pain, No vomiting Musculoskeletal: No joint pain, No muscle pain Genitourinary - Female: No dysuria, No hematuria, No urinary frequency, No urinary incontinence, No urinary urgency Psychiatric: No depression symptoms Integumentary: No problem reported Physical Exam Vital Signs GEN: thin, frail, elderly, in no acute distress, alert and appropriate HEENT: NC/AT, normal sclerae, mucous membranes moist CARDIO: reg rate, S1/2 heard without m/g/r LUNGS: CTA bilaterally, no crackles, rales or wheezes, good diaphragmatic excursion ABD: soft, non-tender, non-distended, no rebound or guarding, +BS. There are small, hard, mobile nodular-ropey subcutaneous tissue in lower abdomen. As this is just in line with her incision scar, it feels consistent with scar tissue-there is no pain associated with it. EXTREMITY: RP and DP palpable 2+ bilat, no LE swelling or edema, extremities are warm and well-perfused NEURO: CN 2-12 grossly intact, sensation intact throughout, coordination intact , mental status intact MUSC: no gross focal deficits SKIN: warm and dry Diagnostics Laboratory Results Results Past 24 Hours Test 08/14/16 11:48 08/14/16 12:09 Range/Units Diagnostic Radiology CXR PORT: IMPRESSION: Resolving left basilar atelectasis. Interval resolution of the previously described mild pulmonary edema. No acute findings. EKG EKG-pending Impression Assessment and Plan 76 yoF with CKD Stage IV presents as a direct admission from Nephrology after labwork reveals worsening hypercalcemia and renal function 1. DEMETRIO on CKD Stage IV-baseline creat is around 2 and has started to rise since beginning of August. She was admitted in the hospital for DEMETRIO that was responsive to IVF in Jun of this year (two months ago). Etiology unclear at this time. Nephro consult-defer workup to them. IVF were started on admission. Will trend PRP daily. No recent contrast and is not taking NSAIDs. 2. Hypercalcemia-uncertain etiology with recent workup unremarkable. She has had a 20lb weight loss since Jun of this year per outpatient record visits, however, no constitutional symptoms. Her PTPrp was on the high end of normal, and she had a CT a/p done at last admission that did not reveal evidence of malignancy. Also, negative recent outpatient workup for myeloma. She has not had a CT chest performed, however, and she does have a significant smoking history. Defer to primary team to order this as they feel necessary. Zometa was given last week and Ca has already gone from 13 to 10.9 today. IVF ordered and will trend PRP daily. She is not symptomatic at this time. 3. Anemia-chronic, improved from prior hospitalization 2 months ago. Likely 2/ 2 CKD. No transfusion needed at this time. No active bleeding. Cont to monitor. 4. DMII-patient was discharged on no antiglycemics on prior discharge (Novolog and Januvia stopped). A1C from around then was 7.6. She arrived today with glucose of 285. She was placed on Lantus with ISS and a glycemic pharmacy consult was ordered. She ended up receiving 5 Units of Lantus and 4 of Novolog over lunch and became hypoglycemic into the 30s as a result. She was given OJ and only came up to 37 from 32 after 15 minutes, then went up to 136 with a half amp of D50. Coordinated with glycemic pharmacist and we are stopping Novolog and holding Lantus until we see where she settles out in the next 24 hours. 5. COPD-stable, no active cough or wheezing. Cont home inhalers including Symbicort, Combivent PRN and Duonebs PRN 6. CAD s/p stent in the past-cont medical management including Plavix, Lipitor, and Toprol XL. Allergy to aspirin 7. PAD-same as #6 8. HTN-controlled, cont home meds including amlodipine, Toprol XL 9. GERD-cont daily PPI DVT proph-heparin SQ Full Code Dispo-med/surg for next 48 hours. Joy Mcelroy, DO Hospitalist Level of Care Med/Surg Resuscitation Status FULL RESUSCITATION VTE Prophylaxis VTE Risk Assessment Done? Y/N: Yes Risk Level: Moderate Given or contraindicated: Unfractionated heparin SQ Social Service Consult >80 yr.& Lives Alone
[2016-08-14] MEDS ORDERED: INSULIN GLARGINE SOLOSTAR 100 UNITS/ML 3 ML PEN SC SCH (14:00)
[2016-08-14] MEDS ORDERED: INSULIN ASPART 100 UNITS/ML 3 ML PEN SC SCH (14:01)
--- NOTE | 2016-08-14 14:56 | Pharmacy Progress Note ---
Glycemic Control Intl Consult Date of Service Aug 14, 2016. Scope Glycemic Pharmacist consulted by Dr Mcelroy on 08/14/16 for glycemic control and to write orders per [facility] ED inpatient glycemic control protocol Objective Weight (Kilograms): 39.000 Accuchecks BSG (last 24hrs): Test 08/14/16 12:32 08/14/16 12:40 08/14/16 14:26 Bedside Glucose 304 mg/dl (70-90) 247 mg/dl (70-90) Random Glucose 285 mg/dl (70-99) Laboratory Data (last 24hrs) Test 08/14/16 12:40 Anion Gap 7.0 mmol/L BUN/Creatinine Ratio 14.1 Blood Urea Nitrogen 48 mg/dl Creatinine 3.40 mg/dl Potassium Level 4.3 mmol/L Sodium Level 143 mmol/L White Blood Count 9.87 K/uL Recent Pertinent Medications Outpatient Anti-diabetic Regimen: * N/A * A1c = 7.6 % 06/10/16 Risk Factors for Insulin Resistance: * Diet: Type 2 DM/ Renal Assessment & Plan ASSESSMENT: * 76 yo female, Stage IV CKD, Type 2 DM, direct admission from Nephrology due to rising Ca level and worsening kidney functioning. * Patient has not been on any medications for DM since her past admission, unknown why? * BSGs elevated at this time, will start patient on Lantus and Novolog CF and CR , similar to past admission in May 2015 when pharmacy glycemic consult, although patient is not presently on steroids this admission. * ADA & AACE recommend a goal blood sugar range 140-180 mg/dl for the majority of critically ill & non-critically ill patients. However, more stringent targets may be selected in individual cases. I will use 110-140mg/dL for patient 's age and A1c. PLAN FOR INPATIENT GLYCEMIC CONTROL: * Basal insulin with LANTUS 5 units SQ BID, starting now * HOLD for BSG < 100mg/dL * Correctional Insulin with NOVOLOG per scale ACHS or Q6hrs while NPO * Goal Range: Low 110 mg/dL - High 140 mg/dL * Correction Factor: 40 mg/dL/unit * Nutritional / Prandial insulin per carb ratio of 1 unit per 20 grams CHO consumed * Please note that the plan above was derived based on current level of insulin resistance and hospital stress. These recommendations are appropriate for inpatient admission only. Plan of care upon discharge will need to be reassessed to avoid potential outpatient hypo/hyperglycemia. Thank you.
[2016-08-14 15:46] VITALS: BP 110/47; PULSE 91; TEMP 36.7; O2SAT 96
[2016-08-14 20:05] VITALS: O2SAT 96
[2016-08-14] MEDS: HEPARIN SOD 5000 UNIT/0.5 ML CARP SQ SCH (22:09)
[2016-08-14] MEDS: OMEGA-3 (PURIFIED FISH OIL) 1 GM CAP PO SCH (22:10)
[2016-08-14] MEDS: BUDESONIDE/FORMOTEROL FUMARATE 160/4.5 60 PUFFS/INHALER INH SCH (22:11)
[2016-08-14 23:35] VITALS: BP 125/57; PULSE 81; TEMP 36.9; O2SAT 94
[2016-08-15] MEDS: SODIUM CHLORIDE 0.9% 1000ML 1,000 ML IV SCH ×4 (01:50→21:24)
[2016-08-15] MEDS: HEPARIN SOD 5000 UNIT/0.5 ML CARP SQ SCH ×3 (06:03→21:26)
[2016-08-15 07:53] VITALS: BP 127/51; PULSE 77; TEMP 37.1; O2SAT 91
[2016-08-15] MEDS: BUDESONIDE/FORMOTEROL FUMARATE 160/4.5 60 PUFFS/INHALER INH SCH ×2 (07:57→21:19)
[2016-08-15] MEDS: OMEGA-3 (PURIFIED FISH OIL) 1 GM CAP PO SCH ×2 (07:58→21:20)
[2016-08-15] MEDS: AMLODIPINE BESYLATE 5 MG TAB PO SCH (07:58)
[2016-08-15] MEDS: CLOPIDOGREL BISULFATE 75 MG TAB PO SCH (07:58)
[2016-08-15] MEDS: ATORVASTATIN 40 MG TAB PO SCH (07:58)
[2016-08-15] MEDS: METOPROLOL SUCC 50MG EXT REL TAB PO SCH (07:58)
[2016-08-15] MEDS: PANTOprazole SOD 40 MG TAB PO SCH (07:58)
[2016-08-15 08:17] VITALS: PULSE 88; O2SAT 95
[2016-08-15] MEDS: ALBUT/IPRATROP 3MG/0.5MG NEB 3 ML VIAL INH PRN ×2 (08:17→13:45)
[2016-08-15 10:02] LABS: BUN/CREATININE RATIO 14.2 (10-20); CALCIUM 9.1 mg/dl (8.5-10.1); CREATININE 2.5 mg/dl (0.60-1.20); POTASSIUM 4.2 mmol/L (3.5-5.1)
[2016-08-15 11:20] VITALS: PULSE 82; O2SAT 97
--- NOTE | 2016-08-15 13:32 | NEPHROLOGY CONSULTATION ---
DATE OF CONSULTATION: 08/15/2016 ATTENDING OF RECORD: Dr. Ramos. REASON FOR CONSULTATION: DEMETRIO and hypercalcemia. HISTORY OF PRESENT ILLNESS: This is a 76-year-old female with stage 4 CKD who was previously admitted with DEMETRIO in the beginning of June with a creatinine of 7.3 and a calcium level of 14.4. The patient's calcium levels improved with IV fluids and kidney function continued to improve as an outpatient. The patient had hypercalcemia workup done. SPEP was negative. PTH was appropriately low at 24. PTH related peptide was mildly elevated at 28. ANGEL level was normal at 36, 125-dihydroxy vitamin D was low at 16, 25-hydroxy vitamin D was good at 58.5. At that time, her calcium level was 10.5 with the PTH of 24. The patient had a CT of the abdomen and pelvis in June without contrast which did not show any findings suggestive of malignancy. The patient states that she has lost about 20 pounds over the past year and does have poor dentition and it is difficult for her to swallow. The patient states that she feels that she drinks plenty of liquids; however, drinks coffee, which does not necessarily help with her volume status. Given the fact that her PTHrP was mildly elevated and the rest of the workup was relatively negative for hypercalcemia, we did give 1 dose of Zometa last week to try to help lower the calcium levels; however, the patient's kidney function continued to worsen and creatinine was up to 3.4 with a calcium level of 11 and so patient was directly admitted for IV fluids. This morning, creatinine is improved to 2.5 and calcium levels have also improved from 10.9 at 9.1. The patient is trying to eat more, but it is difficult to swallow and get food down. REVIEW OF SYSTEMS: Positive significant weight loss of about 20 pounds. Positive fatigue. No fevers or chills. No headaches. No blurry vision. No shortness of breath, no chest pain, no nausea or vomiting, no diarrhea or constipation. No dysuria. No rash or itching. All other review of systems is otherwise negative. PAST MEDICAL HISTORY: CKD stage IV, diabetes, severe COPD, coronary artery disease, hyperlipidemia, GERD, peripheral vascular disease, hypercalcemia of unclear etiology. PAST SURGICAL HISTORY: Aortofemoral bypass, hysterectomy, appendectomy, cataract surgery, CEA, fem-pop bypass. FAMILY HISTORY: Significant for cardiac disease. SOCIAL HISTORY: Former smoker, no alcohol, no drugs. and lives alone. CURRENT MEDICATIONS: Norvasc 10 mg daily, Lipitor 80 mg daily, Plavix 75 mg daily, Toprol-XL 100 mg daily, terazosin 2 mg daily, Protonix 40 mg daily, heparin 5,000 units subQ 8, fish oil 1 gram p.o. b.i.d., Symbicort inhaler twice a day. PHYSICAL EXAMINATION: VITAL SIGNS: Temperature 37.1, pulse 88, respiratory rate is 20, blood pressure is 127/51, satting 95% on room air. GENERAL: Awake, alert, oriented x3. EYES: No scleral icterus. ENT: Mucous membranes are dry. NECK: Supple. PULMONARY: Slight end-expiratory wheeze. CARDIAC: Regular rate and rhythm. ABDOMEN: Bowel sounds positive, soft, nontender. EXTREMITIES: No significant clubbing, cyanosis or edema. NEUROLOGICALLY: Nonfocal. DERM: No rash or ulcers noted. LABORATORY DATA: White count is 9.8, H\T\H 10.6 and 31.5, platelet count is 192. INR is 1. Sodium level was 145, potassium 4.2, chloride is 114, bicarbonate is 22, BUN is 35, creatinine is 2.5. Glucose is 141, calcium is 9.1. ASSESSMENT AND PLAN: 1. Acute kidney injury on chronic kidney disease with a creatinine that is worsening in the setting of hypercalcemia and volume depletion. The patient states she is drinking plenty of water; however, with IV fluids, kidney function and calcium levels have both significantly improved. Would encourage more water and less coffee at home. For now, would continue with IV fluids for another 24 hours and if kidney function and calcium levels continue to improve, hopefully will be able to be discharged tomorrow afternoon depending on lab work. 2. Hypercalcemia. Unclear etiology to the hypercalcemia, could have an element of volume depletion from lack of fluid intake; however calcium levels are trending up rather aggressively and calcium levels were as high as 14.4 which is difficult to get to from pure volume depletion. Improved with IV fluids and then started to trend back up again. Did get 1 dose of bisphosphonate Zometa 4 mg about a week ago, hesitant to redose again given the kidney disease. Myeloma, workup was negative. ANGEL normal, PTHrP only mildly elevated, PTH appropriately suppressed. Vitamin D was 60, 125-hydroxy vitamin D normal. ANGEL level normal. Chest x-ray does not show any concerning findings for cancer. One option for consideration could be to check a CT scan of the chest to be thorough, only a CT of the abdomen and pelvis was done at last admission. Unlikely to do a CT of the head given no neurologic symptoms at this point. The patient though has had a weight loss of about 20 pounds, difficult for her to chew and swallow things, so perhaps the patient may be chronically volume depleted as a contributing cause. Denies any calcium supplements or Tums intake or any such milk alkali syndrome. For now, continue IV fluids and if labs are stable, continue workup as an outpatient with appropriate discharge tomorrow if labs continue to improve. MICHELLE
--- NOTE | 2016-08-15 14:35 | Pharmacy Progress Note ---
Glycemic Control: Progress Nt Date of Service Aug 15, 2016. Scope Glycemic Pharmacist consulted by Dr Mcelroy on 08/14/16 for glycemic control and to write orders per [facility] inpatient glycemic control protocol. Objective Accuchecks BSG (last 24hrs): Test 08/14/16 16:21 08/14/16 17:00 08/14/16 19:59 08/15/16 07:38 Bedside Glucose 33 mg/dl (70-90) 136 mg/dl (70-90) 180 mg/dl (70-90) 90 mg/dl (70-90) Test 08/15/16 09:05 08/15/16 11:47 Random Glucose 141 mg/dl (70-99) Bedside Glucose 111 mg/dl (70-90) Laboratory Data (last 24hrs) Test 08/15/16 09:05 Anion Gap 9.0 mmol/L BUN/Creatinine Ratio 14.2 Blood Urea Nitrogen 35 mg/dl Creatinine 2.50 mg/dl Potassium Level 4.2 mmol/L Sodium Level 145 mmol/L Recent Pertinent Medications Outpatient Anti-diabetic Regimen: * N/A * A1c = 7.6 % 06/10/16 Patient was receiving yesterday (placed on hold yesterday after hypoglycemia). * Basal insulin with LANTUS 5 units SQ BID * HOLD for BSG < 100mg/dL * Correctional Insulin with NOVOLOG per scale ACHS or Q6hrs while NPO * Goal Range: Low 110 mg/dL - High 140 mg/dL * Correction Factor: 40 mg/dL/unit * Nutritional / Prandial insulin per carb ratio of 1 unit per 20 grams CHO consumed Risk Factors for Insulin Resistance: * Diet: Type 2 DM/ Renal Assessment & Plan ASSESSMENT: 08/15/15 * 76 yo female, Stage IV CKD, Type 2 DM, direct admission from Nephrology due to rising Ca level and worsening kidney functioning. * Patient has not been on any medications for DM since her past admission, unknown why? * BSGs elevated at this time, will start patient on Lantus and Novolog CF and CR , similar to past admission in May 2015 when pharmacy glycemic consult, although patient is not presently on steroids this admission. * ADA & AACE recommend a goal blood sugar range 140-180 mg/dl for the majority of critically ill & non-critically ill patients. However, more stringent targets may be selected in individual cases. I will use 110-140mg/dL for patient 's age and A1c. 08/16/15 * Patient experienced a low BSG of 33mg/dL yesterday prior to dinner after only 6 units of NovoLog and 5 units of Lantus. All insulin orders placed on hold at that time. Blood sugars have been at goal without any further insulin. Continue to hold at this time and possibly implement insulin at a very reduced dose tomorrow if BSGs rise above 250mg/dL. PLAN FOR INPATIENT GLYCEMIC CONTROL: * HOLD LANTUS AND NOVOLOG * Please note that the plan above was derived based on current level of insulin resistance and hospital stress. These recommendations are appropriate for inpatient admission only. Plan of care upon discharge will need to be reassessed to avoid potential outpatient hypo/hyperglycemia. Thank you.
--- NOTE | 2016-08-15 15:45 | Progress Note ---
Internal Med Progress Note Date of Service: Aug 15, 2016. Provider Documentation: SUBJECTIVE: Patient is doing well Does have c/o difficultly swallowing solids , no issues with liquids Weight loss - 20 lbs, Unintentional No chest pain, fever, chills, nausea, vomiting, abd pain OBJECTIVE: Vital Signs-as noted below Exam: General-AAOX,3 no distress, Malnourished +, Chronically ill appearing Neck-Supple Lungs-AEBE decreased, no wheezing, crackles Heart-S1, S2 normal, No murmurs Abdomen-Soft, non tender, non distended, BS present Extremities-No edema Neuro-No focal deficits Lab data as noted below. ASSESSMENT & PLAN: 76 yoF with CKD Stage IV presents as a direct admission from Nephrology after labwork reveals worsening hypercalcemia and renal function DEMETRIO on CKD Stage IV - Improving , pre renal ? as responded to IVF Baseline creat is around 2 and has been rising since beginning of August.Recent admission in June 2016 for similar reason-improved with IVF. Came up with creatinine of 3.40. Does have problems swallowing, but no issues with liquids though drinks more coffee than fluids -IV fluids. Encouraged more PO intake -Monitor . Appreciate nephrology inputs. HYPERCALCEMIA-- Improved Unclear etiology. Has had 20 lbs weight loss since June. Had extensive work up in recent months. Received a dose of Zometa 4 mg a week ago. -Responded to IV fluids- down to 9.1 today -Work up in past- CT scan abd/pelvis- no evidence of malignancy, Myeloma work up - neg, Vit D - 60, PTHrp-mildly elevated, PTH-Suppressed, 1-25 hydroxy vitamin D - normal, ANGEL level normal, CXR- no acute issues. PLAN: Will order CT chest to complete the work up as with weight loss of 20 lbs , smoking history and hypercalcemia + DYSPHAGIA -Difficulty swallowing solids >> Liquids with unintentional weight loss -Will order barium swallow ANEMIA OF CHRONIC KIDNEY DISEASE -Hb stable with no signs of active bleeding -Monitor DM-2 WITH HYPOGLYCEMIA EPISODES Patient was discharged on no anti - glycemics on prior discharge (Novolog and Januvia stopped). A1C from around then was 7.6. She arrived with glucose of 285. She was placed on Lantus with ISS and a glycemic pharmacy consult was ordered. She ended up receiving 5 Units of Lantus and 4 of Novolog over lunch and became hypoglycemic into the 30s as a result. -Hold Lantus, ISS -Monitor closely COPD -Stable -Continue with symbicort, combivent PRN, Duonebs PRN CAD S/P STENT -Continue with plavix, Lipitor, Toprol XL. Allergy to ASA PAD -Continue rx as above HTN- controlled -Continue with amlodipine, toprol XL GERD Continue with PPI MALNOURISHED Unintentional weight loss. Says she has difficulty swallowing solids, but no liquids. Local Bulk Driver consulted- appreciate inputs. Boost BID ordered Speech rx ordered DVT PROPHYLAXIS Heparin SQ FULL CODE DISPOSITION Expected discharge home when stable Vital Signs: Date Time Temp Pulse Resp B/P Pulse Ox O2 Delivery O2 Flow Rate FiO2 08/15/16 11:20 82 20 97 Room Air 08/15/16 08:17 88 20 95 Room Air 08/15/16 08:00 Room Air 08/15/16 07:53 37.1 77 16 127/51 91 Room Air 08/15/16 00:05 Room Air 08/14/16 23:35 36.9 81 20 125/57 94 Room Air 08/14/16 20:05 96 Room Air 08/14/16 17:17 Room Air 08/14/16 15:46 36.7 91 16 110/47 96 Room Air Lab Results: Results Past 24 Hours Test 08/14/16 16:21 08/14/16 17:00 08/14/16 19:59 08/15/16 07:38 Range/Units Bedside Glucose 33 136 180 90 70-90 mg/dl Test 08/15/16 09:05 08/15/16 11:47 Range/Units Sodium Level 145 136-145 mmol/L Potassium Level 4.2 3.5-5.1 mmol/L Chloride Level 114 98-107 mmol/L Carbon Dioxide Level 22 21-32 mmol/L Anion Gap 9.0 3-11 mmol/L Blood Urea Nitrogen 35 7-18 mg/dl Creatinine 2.50 0.60-1.20 mg/dl Est Creatinine Clear Calc Drug Dose 11.4 ml/min Estimated GFR () 20.6 Estimated GFR (Non- 17.8 BUN/Creatinine Ratio 14.2 10-20 Random Glucose 141 70-99 mg/dl Calcium Level 9.1 8.5-10.1 mg/dl Bedside Glucose 111 70-90 mg/dl
[2016-08-15 15:57] VITALS: BP 112/47; PULSE 79; TEMP 36.8; O2SAT 93
[2016-08-15] MEDS: BOOST GLUCOSE CONTROL PO SCH (16:55)
--- NOTE | 2016-08-15 18:11 | DIAGNOSTIC IMAGING REPORT ---
CT SCAN OF THE CHEST WITHOUT IV CONTRAST CLINICAL HISTORY: Unintentional weight loss. COMPARISON STUDY: Chest x-ray dated 08/14/2016. TECHNIQUE: CT scan of the thorax was performed from the thoracic inlet to the upper abdomen. Images are reviewed in the axial, sagittal, and coronal planes. IV contrast was not administered for this examination as per the referring clinician. Note that the examination was performed in suboptimal fashion for the reported clinical history without IV contrast. CT DOSE: 197.35 mGy.cm FINDINGS: Thyroid: Imaged portions of the thyroid gland are normal in size and attenuation. A 2.3 cm low-attenuation nodule is seen in the right lobe. Additional smaller low-attenuation nodules are present in the left lobe. Thoracic aorta: There is advanced atherosclerotic calcification of the thoracic aorta is normal, which in caliber and demonstrates standard 3-vessel arch anatomy. Heart: The heart is normal in size and there is a small pericardial effusion. The coronary arteries are densely calcified. There is diminished attenuation of the cardiac blood pool as compared to the myocardium suggesting anemia. The pulmonary trunk is top normal in caliber measuring up to 3.0 cm. Lungs and pleural spaces: Emphysema is noted. There is no airspace consolidation or pleural effusion. The trachea and central airways are clear. 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 Minimal scarring versus atelectasis is identified in the lingula. Mediastinum: There is no mediastinal lymphadenopathy. Hillary: Not well assessed without IV contrast. Axillae: There is no axillary lymphadenopathy. Upper abdomen: There is nodular thickening of the adrenal glands. The partially imaged kidneys demonstrate cortical atrophy. There are extensive bilateral renal vascular calcifications. Small nonobstructing renal calculi are suspected. There are calcified hepatic granulomas. Skeletal structures: The skeletal structures are osteopenic. There are age indeterminate compression deformities of T8, L2, and L3. Hemangiomas are present at several levels. No lytic or blastic bony lesions are seen. A large bone island is noted in the body of L3. Soft tissues: The patient is cachectic. IMPRESSION: 1. Emphysema. 2. There is no airspace consolidation or pleural effusion. 3. No mediastinal adenopathy is identified. 4. There are bilateral low-attenuation thyroid nodules. Consider nonemergent follow-up with a dedicated thyroid ultrasound. 5. There is a small pericardial effusion. 6. Additional changes as above. Electronically signed by: Vikram Lopez M.D. 08/15/2016 4:43 PM Dictated Date/Time: 08/15/2016 4:36 PM
[2016-08-15 22:56] VITALS: BP 158/48; PULSE 84; TEMP 36.9; O2SAT 95
[2016-08-16] MEDS: SODIUM CHLORIDE 0.9% 1000ML 1,000 ML IV SCH (04:20)
[2016-08-16] MEDS: HEPARIN SOD 5000 UNIT/0.5 ML CARP SQ SCH ×2 (05:41→13:48)
[2016-08-16 06:41] LABS: HEMATOCRIT 29.2 % (37-47); MEAN CELL VOLUME 95.4 fL (80-100); MEAN CORPUSCULAR HEMOGLOBIN 31.4 pg (25-34); MEAN CORPUSCULAR HGB CONC 32.9 g/dl (32-36); PLATELET COUNT 187 K/uL (130-400); RED BLOOD COUNT 3.06 M/uL (4.2-5.4); WHITE BLOOD COUNT 6.77 K/uL (4.8-10.8)
[2016-08-16 07:22] LABS: BUN/CREATININE RATIO 13.9 (10-20); CALCIUM 8.5 mg/dl (8.5-10.1); CREATININE 2.3 mg/dl (0.60-1.20)
[2016-08-16 07:33] VITALS: BP 149/53; PULSE 74; TEMP 37.2; O2SAT 94
[2016-08-16] MEDS: BOOST GLUCOSE CONTROL PO SCH (08:00)
[2016-08-16] MEDS: ATORVASTATIN 40 MG TAB PO SCH (08:02)
[2016-08-16] MEDS: BUDESONIDE/FORMOTEROL FUMARATE 160/4.5 60 PUFFS/INHALER INH SCH (08:02)
[2016-08-16] MEDS: METOPROLOL SUCC 50MG EXT REL TAB PO SCH (08:03)
[2016-08-16] MEDS: OMEGA-3 (PURIFIED FISH OIL) 1 GM CAP PO SCH (08:03)
[2016-08-16] MEDS: CLOPIDOGREL BISULFATE 75 MG TAB PO SCH (08:03)
[2016-08-16] MEDS: AMLODIPINE BESYLATE 5 MG TAB PO SCH (08:03)
[2016-08-16] MEDS: PANTOprazole SOD 40 MG TAB PO SCH (08:03)
[2016-08-16] MEDS: ALBUT/IPRATROP 3MG/0.5MG NEB 3 ML VIAL INH PRN (08:17)
[2016-08-16 08:18] VITALS: PULSE 80; O2SAT 98
--- NOTE | 2016-08-16 09:44 | Progress Note ---
Internal Med Progress Note Date of Service: Aug 16, 2016. Provider Documentation: SUBJECTIVE: Patient is doing well. Does have c/o difficultly swallowing solids , no issues with liquids--> but says now it has resolved. Weight loss - 20 lbs, Unintentional. No chest pain, fever, chills, nausea, vomiting, abdominal pain. OBJECTIVE : Vital Signs-as noted below Exam: General-AAOX,3 no distress, Malnourished +, Chronically ill appearing Neck-Supple Lungs-AEBE decreased, no wheezing, crackles Heart-S1, S2 normal, No murmurs Abdomen-Soft, non tender, non distended, BS present Extremities-No edema Neuro-No focal deficits Lab data as noted below. ASSESSMENT & PLAN: 76 yoF with CKD Stage IV presents as a direct admission from Nephrology after labwork reveals worsening hypercalcemia and renal function DEMETRIO on CKD Stage IV - Improving , pre renal ? as responded to IVF Baseline creat is around 2 and has been rising since beginning of August.Recent admission in June 2016 for similar reason-improved with IVF. Came up with creatinine of 3.40. Does have problems swallowing, but no issues with liquids though drinks more coffee than fluids -IV fluids. Encouraged more PO intake--> Change to IV 1/2 NS at 150 as Na 140. Repeat it at 3:00 PM. -Monitor . Appreciate nephrology inputs. HYPERCALCEMIA -- Resolved. Unclear etiology. Has had 20 lbs weight loss since June. Had extensive work up in recent months. Received a dose of Zometa 4 mg a week ago. -Responded to IV fluids- down to 8.5 -Work up in past- CT scan abd/pelvis- no evidence of malignancy, Myeloma work up - neg, Vit D - 60, PTHrp-mildly elevated, PTH-Suppressed, 1-25 hydroxy vitamin D - normal, ANGEL level normal, CXR- no acute issues. CT chest done - Emphysema, small pericardial effusion, No adenopathy. DYSPHAGIA -Difficulty swallowing solids >> Liquids with unintentional weight loss -Barium swallow- pending ANEMIA OF CHRONIC KIDNEY DISEASE -Hb stable with no signs of active bleeding -Monitor DM-2 WITH HYPOGLYCEMIA EPISODES Patient was discharged on no anti - glycemics on prior discharge (Novolog and Januvia stopped). A1C from around then was 7.6. She arrived with glucose of 285. She was placed on Lantus with ISS and a glycemic pharmacy consult was ordered. She ended up receiving 5 Units of Lantus and 4 of Novolog over lunch and became hypoglycemic into the 30s as a result. -Hold Lantus, ISS -Monitor closely COPD -Stable -Continue with symbicort, combivent PRN, Duonebs PRN CAD S/P STENT -Continue with plavix, Lipitor, Toprol XL. Allergy to ASA PAD -Continue rx as above HTN- controlled -Continue with amlodipine, toprol XL GERD Continue with PPI MALNOURISHED Unintentional weight loss. Says she has difficulty swallowing solids, but no liquids. Early Childhood Lead Teacher consulted- appreciate inputs. Boost BID ordered Speech rx ordered DVT PROPHYLAXIS Heparin SQ FULL CODE DISPOSITION Expected discharge home today if repeat BMP - na improved Vital Signs: Date Time Temp Pulse Resp B/P Pulse Ox O2 Delivery O2 Flow Rate FiO2 08/16/16 08:18 80 20 98 Room Air 08/16/16 08:00 Room Air 08/16/16 07:33 37.2 74 18 149/53 94 Nasal Cannula 1.0 08/16/16 00:05 Room Air 08/15/16 22:56 36.9 84 20 158/48 95 Nasal Cannula 2.0 08/15/16 16:30 Room Air 08/15/16 15:57 36.8 79 16 112/47 93 Room Air 08/15/16 11:20 82 20 97 Room Air Lab Results: Results Past 24 Hours Test 08/15/16 11:47 08/15/16 16:14 08/15/16 20:09 08/16/16 05:56 Range/Units Bedside Glucose 111 198 178 70-90 mg/dl White Blood Count 6.77 4.8-10.8 K/uL Red Blood Count 3.06 4.2-5.4 M/uL Hemoglobin 9.6 12.0-16.0 g/dL Hematocrit 29.2 37-47 % Mean Corpuscular Volume 95.4 80-100 fL Mean Corpuscular Hemoglobin 31.4 25-34 pg Mean Corpuscular Hemoglobin Concent 32.9 32-36 g/dl RDW Standard Deviation 53.6 36.4-46.3 fL RDW Coefficient of Variation 15.3 11.5-14.5 % Platelet Count 187 130-400 K/uL Mean Platelet Volume 10.0 7.4-10.4 fL Sodium Level 149 136-145 mmol/L Potassium Level 4.0 3.5-5.1 mmol/L Chloride Level 119 98-107 mmol/L Carbon Dioxide Level 20 21-32 mmol/L Anion Gap 10.0 3-11 mmol/L Blood Urea Nitrogen 32 7-18 mg/dl Creatinine 2.30 0.60-1.20 mg/dl Est Creatinine Clear Calc Drug Dose 12.4 ml/min Estimated GFR () 22.8 Estimated GFR (Non- 19.7 BUN/Creatinine Ratio 13.9 10-20 Random Glucose 81 70-99 mg/dl Calcium Level 8.5 8.5-10.1 mg/dl
--- NOTE | 2016-08-16 09:57 | Nephrology Progress Note ---
Nephrology Progress Note Date of Service: Aug 16, 2016. Subjective anxious about getting out of bed/ to commode; no musc skeletal pain; no dypsnea ; no constipation; voiding w/o difficulty; appetite touch and go; denies generalized weakness Objective Date Time Temp Pulse Resp B/P Pulse Ox O2 Delivery O2 Flow Rate FiO2 08/16/16 08:18 80 20 98 Room Air 08/16/16 08:00 Room Air 08/16/16 07:33 37.2 74 18 149/53 94 Nasal Cannula 1.0 08/16/16 00:05 Room Air 08/15/16 22:56 36.9 84 20 158/48 95 Nasal Cannula 2.0 08/15/16 16:30 Room Air 08/15/16 15:57 36.8 79 16 112/47 93 Room Air 08/15/16 11:20 82 20 97 Room Air Physical Exam: General-on 02nc, maneuvers readily for exam; nad, oriented x 3 Eyes - eomi ENT-dry mm Neck-supple Lungs-R base crackles; diminished air entry Heart-RRR Abdomen-soft +BS NT Extremities-no c/c/e Neuro-beaulieu, fluent speech Current Inpatient Medications Medications (Trade) Dose Ordered Sig/Jenniefr Route Start Time Stop Time Status Last Admin Dose Admin Heparin Sodium (Porcine) (Heparin Sq 5000 Unit/0.5ml) 5,000 unit Q8H SQ 08/14/16 22:00 09/13/16 21:59 08/16/16 05:41 5,000 UNIT Acetaminophen (Tylenol Tab) 650 mg Q4H PRN PO 08/14/16 12:00 09/13/16 11:59 Polyethylene (Miralax Powder Packet) 17 gm DAILY PRN PO 08/14/16 12:00 09/13/16 11:59 08/15/16 07:58 17 GM Ondansetron HCl (Zofran Inj) 4 mg Q6H PRN IV 08/14/16 12:00 09/13/16 11:59 Insulin Glargine (Lantus Solostar Pen) Q12 SC 08/14/16 14:00 09/13/16 13:59 Future Hold 08/14/16 14:30 5 UNIT Glucose (Glucose 40% Gel) 15-30 GRAMS 15 GRAMS... UD PRN PO 08/14/16 12:00 4/10/17 11:59 Glucose (Glucose Chew Tab) 4-8 Tablets 4 Tabl... UD PRN PO 08/14/16 12:00 09/13/16 11:59 Dextrose (Dextrose 50% 50ML Syringe) 25-50ML OF 50% DW IV FOR... UD PRN IV 08/14/16 12:00 09/13/16 11:59 08/14/16 16:47 25 ML Glucagon (Glucagon Inj) 1 mg UD PRN SQ 08/14/16 12:00 09/13/16 11:59 Miscellaneous Information (Consult Glycemic Management Pharmacy) 1 ea UD N/A 08/14/16 12:31 09/13/16 12:30 Amlodipine Besylate (Norvasc Tab) 10 mg QAM PO 08/15/16 09:00 09/14/16 08:59 08/16/16 08:03 10 MG Atorvastatin Calcium (Lipitor Tab) 80 mg DAILY PO 08/15/16 09:00 09/14/16 08:59 08/16/16 08:02 80 MG Budesonide/ Formoterol Fumarate (Symbicort 160/ 4.5 Inh) 2 puffs BID INH 08/14/16 21:00 09/13/16 20:59 08/16/16 08:02 2 PUFFS Clopidogrel Bisulfate (plAVix TAB) 75 mg DAILY PO 08/15/16 09:00 09/14/16 08:59 08/16/16 08:03 75 MG Fish Oil ([place]-3 (Purified Fish Oil) Cap) 1 gm BID PO 08/14/16 21:00 09/13/16 20:59 08/16/16 08:03 1 GM Albuterol/ Ipratropium (Duoneb) 3 ml QID PRN INH 08/14/16 12:45 09/13/16 12:44 08/16/16 08:17 3 ML Metoprolol Succinate (Toprol Xl Tab) 100 mg DAILY PO 08/15/16 09:00 09/14/16 08:59 08/16/16 08:03 100 MG Nitroglycerin (Nitrostat Tab) 0.4 mg UD PRN UT 08/14/16 12:45 09/13/16 12:44 Terazosin HCl (Hytrin Cap) 2 mg DAILY PO 08/15/16 09:00 09/14/16 08:59 08/16/16 08:02 2 MG Albuterol/ Ipratropium (Combivent Respimat Inh) 2 puffs QID PRN INH 08/14/16 13:00 09/13/16 12:59 Pantoprazole Sodium (Protonix Tab) 40 mg QAM PO 08/15/16 09:00 09/14/16 08:59 08/16/16 08:03 40 MG Enteral Nutritional Formula 1 can 1 can BIDM PO 08/15/16 17:00 09/14/16 16:59 08/16/16 08:00 1 CAN Sodium Chloride (1/2 Nss 1000ml) 1,000 ml @ 150 mls/hr Q6H40M IV 08/16/16 09:30 09/15/16 09:29 UNV Last 24 Hours Test 08/15/16 11:47 08/15/16 16:14 08/15/16 20:09 08/16/16 05:56 Bedside Glucose 111 mg/dl 198 mg/dl 178 mg/dl White Blood Count 6.77 K/uL Red Blood Count 3.06 M/uL Hemoglobin 9.6 g/dL Hematocrit 29.2 % Mean Corpuscular Volume 95.4 fL Mean Corpuscular Hemoglobin 31.4 pg Mean Corpuscular Hemoglobin Concent 32.9 g/dl RDW Standard Deviation 53.6 fL RDW Coefficient of Variation 15.3 % Platelet Count 187 K/uL Mean Platelet Volume 10.0 fL Sodium Level 149 mmol/L Potassium Level 4.0 mmol/L Chloride Level 119 mmol/L Carbon Dioxide Level 20 mmol/L Anion Gap 10.0 mmol/L Blood Urea Nitrogen 32 mg/dl Creatinine 2.30 mg/dl Est Creatinine Clear Calc Drug Dose 12.4 ml/min Estimated GFR () 22.8 Estimated GFR (Non- 19.7 BUN/Creatinine Ratio 13.9 Random Glucose 81 mg/dl Calcium Level 8.5 mg/dl Assessment & Plan 76-year-old female with stage 4 CKD who was previously admitted with DEMETRIO in the beginning of June with a creatinine of 7.3 and a calcium level of 14.4. Also w/ hx of COPD, DM, CAD, PVD s/p aortofem bypass, stroke, GERD, HL. The patient's calcium levels improved with IV fluids and kidney function continued to improve as an outpatient. The patient had negative hypercalcemia workup except for mildly elevated PTHrp. Pt endorses wt loss of 20 pounds over the past year and does have poor dentition and it is difficult for her to swallow. 1. Acute kidney injury on chronic kidney disease with a creatinine that is improving in the setting of hypercalcemia and volume depletion now on IVF. >change NS to 1/2 NS same rate -continue close outpt f/u w/ Dr Ferrell after d/c 2. Hypercalcemia, improved/ normal today. Unclear etiology to the hypercalcemia, could have an element of volume depletion from lack of fluid intake; had 1 dose of bisphosphonate Zometa 4 mg about a week ago. Myeloma, workup was negative. ANGEL normal, PTHrP only mildly elevated, PTH appropriately suppressed. Vitamin D was 60, 125-hydroxy vitamin D normal. ANGEL level normal. Chest x-ray and chest CT scan as well as CT abdomen and pelvis all unremarkable 3. Hypernatremia >> changed her to 1/2 NS; recheck later today; again supports that pt not drinking enough water. Appreciate c/s; will follow with you. Care coordinated w/ Dr Ramos.
--- NOTE | 2016-08-16 10:34 | DIAGNOSTIC IMAGING REPORT ---
DOUBLE CONTRAST BARIUM ESOPHAGRAM CLINICAL HISTORY: Dysphagia. COMPARISON STUDY: Barium esophagram dated 06/20/2013. TECHNIQUE: A standard air contrast barium esophagram is performed. Multiple spot images of the esophagus are acquired both upright and prone. FINDINGS: The patient swallowed barium and the barium pill without difficulty. The mucosal pattern is normal. There is no evidence of intrinsic or extrinsic mass lesion. There is mild dysmotility in the mid to distal third of the esophagus. No aspiration was seen. The gastroesophageal junction distended normally. No gastroesophageal reflux could be elicited by having the patient perform the Valsalva maneuver. A vascular stent is noted in the left neck. There is a tiny hiatal hernia. Gastric fold thickening is suggested. Fluoroscopy time: 1.5 minutes. Fluoroscopic images: 32 IMPRESSION: 1. Mild esophageal dysmotility. 2. Tiny hiatal hernia. 3. Gastric fold thickening is suggested. Correlate clinically for evidence of gastritis. Electronically signed by: Vikram Lopez M.D. 08/16/2016 10:33 AM Dictated Date/Time: 08/16/2016 10:30 AM
[2016-08-16] MEDS: SODIUM CHLORIDE 0.45% 1000ML 1,000 ML IV SCH ×2 (10:36→16:08)
[2016-08-16 15:07] VITALS: BP 119/55; PULSE 71; TEMP 36.7; O2SAT 96
[2016-08-16 16:06] LABS: BUN/CREATININE RATIO 14.8 (10-20); CALCIUM 8.2 mg/dl (8.5-10.1); CREATININE 2.3 mg/dl (0.60-1.20); POTASSIUM 3.7 mmol/L (3.5-5.1)
--- NOTE | 2016-08-16 16:12 | Discharge Instructions ---
Discharge Instructions Date of Service Aug 16, 2016. Admission Reason for Admission: [place], Hypercalcemia Discharge Discharge Diagnosis / Problem: 1. Hypercalcemia 2. Acute kidney injury likely secondary to volume depletio Discharge Goals Goal(s): Improve disease control, Prevent Disease Progression Activity Recommendations Activity Limitations: resume your previous activity . Instructions / Follow-Up Instructions / Follow-Up DIETARY RECOMMENDATIONS; Mechanical soft- slippery diet- It is recommended that you cut her food into smaller pieces and avoid "tough" or difficult to chew food items. Straws are okay, and medications may be taken whole with water. During meals, you should also take small bites, and fully chew her bite before attempting to swallow. You can resume eating regular solids after getting lower dentures. -Boost Glucose controlled BID recommended -Please hydrate yourself well with WATER and do not replace it with any other beverages as water is the best source of hydration MEDICATIONS No changes in meds FOLLOW UP 1. Dr Baumann (PCP) on 08/20/16 at 11:10 AM 2. Nephrology (Dr Ferrell) as per schedule Current Hospital Diet Patient's current hospital diet: Renal Diet, Diabetes Type 2 Diet Discharge Diet Recommended Diet: AHA Diet (Heart Healthy), Low Sodium Diet (2gm Na), Diabetes Type 2 Diet Pending Studies Studies pending at discharge: no Laboratory Results Hemoglobin A1c Test 06/10/16 06:13 Range/Units Estimated Average Glucose 171 mg/dl Hemoglobin A1c 7.6 H 4.5-5.6 % Medical Emergencies . Who to Call and When: Medical Emergencies: If at any time you feel your situation is an emergency, please call 911 immediately. . Non-Emergent Contact Non-Emergency issues call your: Primary Care Provider . . "Provider Documentation" section prepared by Christine Ramos. VTE Core Measure Inpt VTE Proph given/why not?: Unfractionated heparin SQ
--- NOTE | 2016-08-16 16:17 | Discharge Summary ---
Discharge Summary Date of Service Aug 16, 2016. Discharge Summary Admission Date: Aug 14, 2016 at 11:08 Discharge Date: Aug 16, 2016 Discharge Disposition: Home Principal Diagnosis: 1. Hypercalcemia, unclear etiology, possibly secondary to volume depletion 2. DEMETRIO on CKD-III, unclear etiology, possibly secondary to volume depletion Secondary Diagnoses/Problems: 1. Anemia of CKD 2. Hx of CAD S/P Stent placement 3. DM-II 4. Hypertension 5. PAD 6. GERD Procedures: Barium swallow CXR CT chest IV fluids Consultations: Nephrology, Dr Ferrell Pending Studies/Follow-Up: Instructions / Follow-Up DIETARY RECOMMENDATIONS; Mechanical soft- slippery diet- It is recommended that you cut her food into smaller pieces and avoid "tough" or difficult to chew food items. Straws are okay, and medications may be taken whole with water. During meals, you should also take small bites, and fully chew her bite before attempting to swallow. You can resume eating regular solids after getting lower dentures. -Boost Glucose controlled BID recommended -Please hydrate yourself well with WATER and do not replace it with any other beverages as water is the best source of hydration MEDICATIONS No changes in meds FOLLOW UP 1. Dr Baumann (PCP) on 08/20/16 at 11:10 AM 2. Nephrology (Dr Ferrell) as per schedule Medication Reconciliation Continued Medications: Acetaminophen Tab (Tylenol) 325 Mg Tab 650 MG PO Q4 PRN for Headache or Pain, TAB Amlodipine Besylate (Amlodipine Besylate) 5 Mg Tab 10 MG PO QAM for 90 Days, #90 TAB 2 Refills Atorvastatin (Lipitor) 80 Mg Tab 1 TAB PO DAILY for 30 Days, #30 TAB 5 Refills Budesonide/Formoterol Fumarate (Symbicort 160/4.5 Inhaler) 120 Puffs/ Aero 2 PUFFS INH BID for 30 Days, #1 INHALER 3 Refills Clopidogrel (Plavix) 75 Mg Tab 75 MG PO DAILY Fish Oil ([place]-3) 1 Ea Cap 1 CAP PO BID, CAP Ipratropium-Albuterol (Duoneb) [place] 1 TREATMENT INH QID PRN for SOB/Wheezing, INHA Ipratropium/Albuterol (Combivent) Aer 2 PUFFS INH QID PRN for Shortness of Breath, INH Metoprolol Succ (Toprol Xl) (Toprol-Xl ) 100 Mg Tabcr 100 MG PO DAILY, TAB Nitroglycerin (Nitrostat) 0.4 Mg Tab 0.4 MG UT PRN, BTL Pantoprazole Sodium (Protonix) 20 Mg Tab 20 MG PO DAILY, TAB Terazosin Hcl (Hytrin) 2 Mg Cap 2 MG PO DAILY, CAP Admission Information HPI (per Admitting provider): 76 yo female with Stage IV CKD, diabetes and vascular disease who presents as a direct admission from Nephrology 2/2 rising calcium level and worsening kidney function. She was previously admitted in June for DEMETRIO and hypercalcemia and responded well to IVF. Nephrology has been following labs as an outpatient and noticed creat go to 3.2 and calcium to 13 from normal levels at prior discharge. The patient is asymptomatic at this time. She was given Zometa 4mg as an outpatient last week. Prior hypercalcemia workup revealed a vitamin D of 56, a PTH of 21 and a PTHrp of 27 with reference range 14-27. Of note, ROS does reveal some dysphagia to solids for the past 3 months. She states this is with certain foods only but has no problems with pills or liquids. She also reports some constipation recently. At home, she has a half bath downstairs and her full bath is upstairs. She cannot make it up the stairs because of chronic shortness of breath in setting of COPD, so she is forced to shower and bathe in the sink downstairs. We briefly discussed if she were interested in changing that situation by moving homes or going somewhere like rehab and she states that she doesn't want to leave her home and she is too old to move. Hospital Course 76 yoF with CKD Stage IV presents as a direct admission from Nephrology after labwork reveals worsening hypercalcemia and renal function DEMETRIO on CKD Stage IV - Improving , pre renal ? as responded to IVF Baseline creat is around 2 and has been rising since beginning of August.Recent admission in June 2016 for similar reason-improved with IVF. Came up with creatinine of 3.40. Does have problems swallowing, but no issues with liquids though drinks more coffee than fluids -IV fluids. Encouraged more PO intake--> Changed to 1/2 NS as Na up to 149---> repeat bmp down to 144 at 3:00 PM -Monitor closely outpatient. Appreciate nephrology inputs. HYPERCALCEMIA -- Resolved. Unclear etiology. Has had 20 lbs weight loss since June. Had extensive work up in recent months. Received a dose of Zometa 4 mg a week ago. -Responded to IV fluids- down to 8.5 -Work up in past- CT scan abd/pelvis- no evidence of malignancy, Myeloma work up - neg, Vit D - 60, PTHrp-mildly elevated, PTH-Suppressed, 1-25 hydroxy vitamin D - normal, ANGEL level normal, CXR- no acute issues. CT chest done - Emphysema, small pericardial effusion, No adenopathy. -Monitor closely outpatient DYSPHAGIA -Difficulty swallowing solids >> Liquids with unintentional weight loss -Barium swallow-Mild esophageal dysmotililty, tiny hiatal hernia, gastric folds- clinical co relation for gastritis ANEMIA OF CHRONIC KIDNEY DISEASE -Hb stable with no signs of active bleeding -Monitor DM-2 WITH HYPOGLYCEMIA EPISODES Patient was discharged on no anti - glycemics on prior discharge (Novolog and Januvia stopped). A1C from around then was 7.6. She arrived with glucose of 285. She was placed on Lantus with ISS and a glycemic pharmacy consult was ordered. She ended up receiving 5 Units of Lantus and 4 of Novolog over lunch and became hypoglycemic into the 30s as a result. -Hold Lantus, ISS -Monitor closely COPD -Stable -Continue with symbicort, combivent PRN, Duonebs PRN CAD S/P STENT -Continue with plavix, Lipitor, Toprol XL. Allergy to ASA PAD -Continue rx as above HTN- controlled -Continue with amlodipine, toprol XL GERD Continue with PPI MALNOURISHED Unintentional weight loss. Says she has difficulty swallowing solids, but no liquids. [employer] Supervisor consulted- appreciate inputs. Boost BID ordered Speech rx ordered -Mechanical soft, slipper per MATE FIRST evaluation--> advance to regular solids after has lower dentures DVT PROPHYLAXIS Heparin SQ FULL CODE DISPOSITION Okay to discharge home today Total time spent on discharge = 35 minutes This includes examination of the patient, discharge planning, medication reconciliation, and communication with other providers. Discharge Instructions Discharge Goals Goal(s): Improve disease control, Prevent Disease Progression Activity Recommendations Activity Limitations: resume your previous activity . Instructions / Follow-Up Instructions / Follow-Up DIETARY RECOMMENDATIONS; Mechanical soft- slippery diet- It is recommended that you cut her food into smaller pieces and avoid "tough" or difficult to chew food items. Straws are okay, and medications may be taken whole with water. During meals, you should also take small bites, and fully chew her bite before attempting to swallow. You can resume eating regular solids after getting lower dentures. -Boost Glucose controlled BID recommended -Please hydrate yourself well with WATER and do not replace it with any other beverages as water is the best source of hydration MEDICATIONS No changes in meds FOLLOW UP 1. Dr Baumann (PCP) on 08/20/16 at 11:10 AM 2. Nephrology (Dr Ferrell) as per schedule Current Hospital Diet Patient's current hospital diet: Renal Diet, Diabetes Type 2 Diet Discharge Diet Recommended Diet: AHA Diet (Heart Healthy), Low Sodium Diet (2gm Na), Diabetes Type 2 Diet Pending Studies Studies pending at discharge: no Laboratory Results Hemoglobin A1c Test 06/10/16 06:13 Range/Units Estimated Average Glucose 171 mg/dl Hemoglobin A1c 7.6 H 4.5-5.6 % Medical Emergencies . Who to Call and When: Medical Emergencies: If at any time you feel your situation is an emergency, please call 911 immediately. . Non-Emergent Contact Non-Emergency issues call your: Primary Care Provider . . "Provider Documentation" section prepared by Christine Ramos. VTE Core Measure Inpt VTE Proph given/why not?: Unfractionated heparin SQ
[2016-08-16 16:18] VITALS: BP 119/55; PULSE 71; TEMP 36.7; O2SAT 96
[2016-08-16] MEDS ORDERED: INSULIN ASPART 100 UNITS/ML 3 ML PEN SC SCH (16:30)
== END 2016-08-16 16:35 | disposition home or self-care (01) | DRG 641 ==
LOC: C.MED 08-14 11:08
PROVIDERS: ADMIT Internal Medicine; ATTEND Internal Medicine
DX: E83.52 Hypercalcemia (principal); N17.9 Acute kidney failure, unspecified; I31.3 Pericardial effusion (noninflammatory); N18.4 Chronic kidney disease, stage 4 (severe); E46 Unspecified protein-calorie malnutrition; E87.0 Hyperosmolality and hypernatremia; Z68.1 Body mass index [BMI] 19.9 or less, adult; E86.1 Hypovolemia; J44.9 Chronic obstructive pulmonary disease, unspecified; I25.10 Atherosclerotic heart disease of native coronary artery without angina pectoris; E11.649 Type 2 diabetes mellitus with hypoglycemia without coma; E11.22 Type 2 diabetes mellitus with diabetic chronic kidney disease; K21.9 Gastro-esophageal reflux disease without esophagitis; D63.1 Anemia in chronic kidney disease; I73.9 Peripheral vascular disease, unspecified; E78.5 Hyperlipidemia, unspecified; K22.4 Dyskinesia of esophagus; K44.9 Diaphragmatic hernia without obstruction or gangrene; K29.70 Gastritis, unspecified, without bleeding; I12.9 Hypertensive chronic kidney disease with stage 1 through stage 4 chronic kidney disease, or unspecified chronic kidney disease; R13.10 Dysphagia, unspecified; Z95.5 Presence of coronary angioplasty implant and graft; Z87.891 Personal history of nicotine dependence; Z95.828 Presence of other vascular implants and grafts; Z79.51 Long term (current) use of inhaled steroids; Z79.02 Long term (current) use of antithrombotics/antiplatelets; Z79.899 Other long term (current) drug therapy

== ENCOUNTER 2016-09-20 09:06 | Inpatient (IN) | payer OTHER ==
[~2016-09-20] VITALS: Ht 154.9 cm; Wt 38.7 kg
[~2016-09-20 09:06] MED LIST changes: -CPR250 PO; +METO100T44 PO; -METO1TAB69 PO; -MTR500 PO
[2016-09-20 11:12] VITALS: BP 113/54; PULSE 84; TEMP 36.8; O2SAT 96
[2016-09-20] MEDS ORDERED: ONDANSETRON INJ 2 MG/ML 2 ML VIAL IV PRN (11:30)
[2016-09-20 11:54] VITALS: Ht 154.9 cm; Wt 38.7 kg
[2016-09-20 13:18] LABS: MEAN CELL VOLUME 92.9 fL (80-100); MEAN CORPUSCULAR HEMOGLOBIN 31.6 pg (25-34); MEAN PLATELET VOLUME 10.1 fL (7.4-10.4); PLATELET COUNT 158 K/uL (130-400); RED BLOOD COUNT 3.23 M/uL (4.2-5.4); WHITE BLOOD COUNT 9.25 K/uL (4.8-10.8)
[2016-09-20 13:44] LABS: BUN/CREATININE RATIO 16.3 (10-20); CALCIUM 10.2 mg/dl (8.5-10.1); CREATININE 3.1 mg/dl (0.60-1.20); POTASSIUM 3.6 mmol/L (3.5-5.1)
[2016-09-20 14:50] VITALS: BP 140/57; PULSE 78; TEMP 36.8; O2SAT 94
--- NOTE | 2016-09-20 15:54 | History and Physical ---
History & Physical Date & Time of Service: Sep 20, 2016 ~ 11:30 Chief Complaint: Hypercalcemia, DEMETRIO Primary Care Physician: Dong Baumann M.D.(VERNELL) History of Present Illness 76 year old female who was referred for direct admission by Dr. Ferrell for hypercalcemia and DEMETRIO. Patient was recently admitted to [facility] 08/14 - 08/16 for the same. Extensive work up has been unrevealing for cause of DEMETRIO and hypercalcemia. Patient has improved the past with Zometa and IVF however DEMETRIO and hypercalcemia have been returning. Last admission it was felt the cause was possibly due to poor PO intake. When she was discharged, creat was 2.3. Outpatient labs obtained on 09/17 showed creat 3.0 and Ca+ 11.4. Patient was referred to the hospital at that time however did not want to come to the hospital over Easter weekend. Patient therefore presented to the hospital today. Patient reports she has been feeling well. Feels as though she is eating and drinking adequately. She denies chest pain, shortness of breath, lightheadedness, dizziness, diaphoresis, and syncope. No abdominal pain, nausea , vomiting, or diarrhea. She denies fever and chills. No urinary symptoms. At the time of my exam, patient is resting in bed in no acute distress. Past Medical/Surgical History Medical Problems: (1) CAD (coronary artery disease) Permanent Comment: NSTEMI 01/2009 - BMS to distal left circumflex, cath at that time showed 100% proximal RCA occlusion Status: Chronic (2) CKD (chronic kidney disease), stage IV Status: Chronic (3) COPD, severe Permanent Comment: oxygen requiring Status: Chronic (4) DM type 2 (diabetes mellitus, type 2) Status: Chronic (5) Dyslipidemia Status: Chronic (6) Femoral artery aneurysm, right Permanent Comment: s/p repair Status: Chronic (7) GERD (gastroesophageal reflux disease) Status: Chronic (8) Ischemic cardiomyopathy Permanent Comment: echo 04/2015- EF 50-55%, grade I diastolic dysfunction Status: Chronic (9) PVD (peripheral vascular disease) Status: Chronic Surgical Problems: (1) H/O aorto-femoral bypass Status: Chronic (2) History of hysterectomy Status: Chronic (3) Hx of appendectomy Status: Chronic (4) Hx of cataract surgery Status: Chronic (5) S/P carotid endarterectomy Permanent Comment: left in 2001, left carotid stent placed 2002 Status: Chronic (6) S/P femoral-popliteal bypass surgery Status: Chronic Family History Cardiac disorder FATHER Social History Smoking Status: Former Smoker Alcohol Use: none Immunizations History of Influenza Vaccine: Yes Influenza Vaccine Date: Mar 09, 2016 History of Tetanus Vaccine?: Yes Tetanus Immunization Date: Jan 04, 2008 History of Pneumococcal: Yes Pneumococcal Date: Aug 06, 2014 Multi-Drug Resistant Organisms History of MDRO: No Allergies Coded Allergies: Codeine (Verified Allergy, Mild, 06/09/16) ABD DISTRESS Amoxicillin (Verified Allergy, Unknown, unknown, 08/14/16) Aspirin (Verified Allergy, Unknown, UNKNOWN, 06/09/16) PER HER DOCTOR, SHE IS NOT SUPPOSE TO TAKE IT BECAUSE OF HER KIDNEYS Isosorbide (Verified Allergy, Unknown, unknown, 08/14/16) Home Medications Scheduled Amlodipine Besylate (Amlodipine Besylate), 10 MG PO QAM Atorvastatin (Lipitor), 1 TAB PO DAILY Budesonide/Formoterol Fumarate (Symbicort 160/4.5 Inhaler), 2 PUFFS INH BID Clopidogrel (Plavix), 75 MG PO DAILY Fish Oil ([place]-3), 1 CAP PO BID Metoprolol Succ (Toprol Xl) (Toprol-Xl ), 100 MG PO DAILY Nitroglycerin (Nitrostat), 0.4 MG UT PRN Pantoprazole Sodium (Protonix), 20 MG PO DAILY Terazosin Hcl (Hytrin), 2 MG PO DAILY Scheduled PRN Acetaminophen Tab (Tylenol), 650 MG PO Q4 PRN for Headache or Pain Ipratropium-Albuterol (Duoneb), 1 TREATMENT INH QID PRN for SOB/Wheezing Ipratropium/Albuterol (Combivent), 2 PUFFS INH QID PRN for Shortness of Breath Review of Systems 10 point review of systems was completed with the pertinent positives and negatives noted per the HPI Physical Exam Vital Signs Date Time Temp Pulse Resp B/P Pulse Ox O2 Delivery O2 Flow Rate FiO2 09/20/16 14:50 36.8 78 20 140/57 94 Room Air 09/20/16 12:03 Room Air 09/20/16 11:12 36.8 84 16 113/54 96 Room Air General Appearance: no apparent distress Head: normocephalic Eyes: normal inspection ENT: hearing grossly normal Neck: supple, no JVD Respiratory/Chest: lungs clear, normal breath sounds, no respiratory distress Cardiovascular: regular rate, rhythm, no edema, normal peripheral pulses Abdomen/GI: normal bowel sounds, non tender, soft Extremities/Musculoskelatal: normal inspection, no calf tenderness Neurologic/Psych: no motor/sensory deficits, alert, normal mood/affect, oriented x 3 Skin: normal color, warm/dry Diagnostics Laboratory Results Results Past 24 Hours Test 09/20/16 12:59 09/20/16 15:37 Range/Units White Blood Count 9.25 4.8-10.8 K/uL Red Blood Count 3.23 4.2-5.4 M/uL Hemoglobin 10.2 12.0-16.0 g/dL Hematocrit 30.0 37-47 % Mean Corpuscular Volume 92.9 80-100 fL Mean Corpuscular Hemoglobin 31.6 25-34 pg Mean Corpuscular Hemoglobin Concent 34.0 32-36 g/dl RDW Standard Deviation 47.8 36.4-46.3 fL RDW Coefficient of Variation 14.1 11.5-14.5 % Platelet Count 158 130-400 K/uL Mean Platelet Volume 10.1 7.4-10.4 fL Sodium Level 143 136-145 mmol/L Potassium Level 3.6 3.5-5.1 mmol/L Chloride Level 107 98-107 mmol/L Carbon Dioxide Level 27 21-32 mmol/L Anion Gap 9.0 3-11 mmol/L Blood Urea Nitrogen 51 7-18 mg/dl Creatinine 3.10 0.60-1.20 mg/dl Est Creatinine Clear Calc Drug Dose 9.1 ml/min Estimated GFR () 15.9 Estimated GFR (Non- 13.7 BUN/Creatinine Ratio 16.3 10-20 Random Glucose 195 70-99 mg/dl Calcium Level 10.2 8.5-10.1 mg/dl Impression Assessment and Plan DEMETRIO ON CKD STAGE III, HYPERCALCEMIA - admitted to med/surg - patient referred for direct admission by Dr. Ferrell for worsening renal function and hypercalcemia; patient asymptomatic - outpatient labs 09/17 - creat 3.1, Ca+ 11.4 -> today creat 3.1, Ca+ 10.2 - patient has had extensive work up, including malignancy work up, and cause remains unknown; possible due to dehydration from poor PO intake - as Ca+ level is near normal today, will just give IVF and hold off on Zometa - follow labs - nephro consult CAD - stable, no reports of chest pain - continue ASA, Plavix, beta flor, and statin HTN - BP controlled, continue metoprolol and amlodipine COPD - no signs of acute exacerbation - continue home inhalers DM - recently taken off insulin and oral agents due to hypoglycemia - hgb a1c 7.6 06/2015 - glucose on labs today 195 - will utilize SSI while hospitalized DVT PROPHYLAXIS - SQ heparin CODE STATUS - Patient is a full code as per my discussion with her. DISPO - In my clinical judgment this beneficiary meets acute admission criteria, established by [facility], that includes being hospitalized through two midnights. Advanced Directives Existing Living Will: Yes Existing Power of Bingo Usher: Yes VTE Prophylaxis VTE Risk Assessment Done? Y/N: Yes Risk Level: Moderate Given or contraindicated: Unfractionated heparin SQ Note ATTENDING ADDENDUM Record reviewed. Patient interviewed and examined. Care coordinated with MAX Carr. Please refer to her documentation for patient's history. Briefly, 76 YO female with history of ischemic heart disease, COPD, CKD IIII, DM , and other problems. Followed by Nephrology for CKD and hypercalcemia. Outpatient labs demonstrated worsening renal function and hypercalcemia. Referred for hospitalization. Patient feels tired, no other complaints. EXAM: General- no distress VS- as noted HEENT- anicteric Neck- no JVD Lungs- clear Heart- RRR, no gallop Abdomen- + BS, soft, nontender Extremities- no pretibial edema or calf tenderness Neuro- alert DATA: BUN 51, creatinine 3.1, K 3.6, Ca 10.2. Other lab studies as noted. ASSESSMENT AND PLAN: Acute kidney injury superimposed on CKD III. Hypercalcemia, etiology not determined. IV fluids. Consult Nephrology. Please refer to KELLY Mathur's documentation for discussion of other issues. Edu Arroyo MD .
[2016-09-20 16:00] VITALS: O2SAT 94
[2016-09-20] MEDS: SODIUM CHLORIDE 0.9% 1000ML 1,000 ML IV SCH (16:17)
[2016-09-20] MEDS: ACETAMINOPHEN 325 MG TAB PO PRN (16:23)
--- NOTE | 2016-09-20 17:33 | NEPHROLOGY CONSULTATION ---
DATE OF CONSULTATION: 09/20/2016 ATTENDING OF RECORD: Dr. Matson. REASON FOR CONSULTATION: DEMETRIO and hypercalcemia. HISTORY OF PRESENT ILLNESS: This is a 76-year-old female who was recently in the hospital from August 14 to August 16 with DEMETRIO and hypercalcemia, who was also admitted in June of 2016 with DEMETRIO and hypercalcemia with creatinine of 7.3 and a calcium level 14.4, which improved with IV fluids. Hypercalcemia workup has only revealed a mildly elevated PTHRP of 125, dihydroxy vitamin D was low, PTH was appropriately low, ANGEL level was normal, vitamin D level was relatively normal at 58. CT of the abdomen and pelvis did not show any signs of malignancy. Chest CT showed emphysema, but once again no signs of malignancy at that time. The patient's creatinine during last admission went from 3.4 down to 2.[address] down to 1.8 and then has slowly trended back up and is now back up to 3.1. The patient's calcium level has also started to trend up and was 11.4 on Tuesday and was instructed to directly admit on Tuesday; however, patient was hesitant to do so given and was wanting to coming into the hospital for direct admission on Tuesday. The patient has been feeling well and trying to drink more water over the weekend. The calcium levels have improved. We have also been intermittently dosing with Zometa to try to help control the hypercalcemia. Calcium level today is down to 10.1. The patient denies any calcium supplements or any Tums at this time. REVIEW OF SYSTEMS: No weight loss. Positive fatigue. Positive shortness of breath with exertion. No chest pain, no nausea or vomiting, no diarrhea, no dysuria, no hematuria. No rash or itching. No blurry vision. All other review of systems otherwise negative. PAST MEDICAL HISTORY: CKD stage IV with baseline creatinine of 1.8; however, has had multiple DEMETRIO episodes from hypercalcemia. Underlying diabetes, emphysema, coronary artery disease, peripheral vascular disease, hypercalcemia of unclear etiology, hyperlipidemia, and significant weight loss of about 20 pounds. PAST SURGICAL HISTORY: Aortofemoral bypass, hysterectomy, appendectomy, cataract surgery, and CEA. FAMILY HISTORY: Significant for heart disease. SOCIAL HISTORY: Former smoker. No alcohol, no drugs. and lives alone. CURRENT MEDICATIONS: Norvasc 10 mg a day, Lipitor 80 mg a day, Plavix 75 mg a day, Toprol-XL 100 mg a day, Hytrin 2 mg daily, Protonix 40 mg daily, heparin 5000 units subQ q. 12, Symbicort inhaler twice a day, Fish oil 1 gram b.i.d., normal saline at 100 mL an hour, and DuoNeb as needed. PHYSICAL EXAMINATION: VITAL SIGNS: Temperature 36.8, pulse 78, respiratory rate is 20, blood pressure 140/57, satting 94% on room air. GENERAL: Awake, alert, oriented x3. EYES: No scleral icterus. HEENT: Mucous membranes are dry. NECK: Supple. PULMONARY: Decreased breath sounds at the bases. CARDIAC: Distant heart sounds. ABDOMEN: Bowel sounds positive, soft, nontender. EXTREMITIES: No clubbing, cyanosis or edema. NEUROLOGIC: Nonfocal. DERMATOLOGIC: No rash or ulcers noted. LABORATORIES: White count is 9, H\T\H 10 and 30, platelet count is 158. Sodium level is 143, potassium 3.6, chloride is 107, bicarb is 27, BUN is 51, creatinine is 3.1, glucose 195, and calcium is 10.2. IMPRESSION AND PLAN: 1. Hypercalcemia of unclear etiology. The patient has had mild elevation of PTHrP; however, workup looking for cancer has been uneventful with CT scan of the abdomen and pelvis as well as CT of the chest. The patient has no neurologic findings so holding off on the CT of the head at this time. The patient in the past has always improved with IV fluids. Perhaps patient has an element of volume depletion that overall she needs to drink more water. However, the patient has multiple DEMETRIO episodes with recurrent calcium levels that continue to trend up making me feel this is not hypercalcemia from volume depletion. I have placed a referral as an outpatient to endocrinology for help and investigation of the workup during this admission and would like to continue with the IV fluids while watching the pulmonary status closely. 2. Acute kidney injury. The patient has acute kidney injury thought to be from hypercalcemia and decreased perfusion to the kidneys. Calcium levels are trending down. I would like to start IV fluids. We will watch her volume status closely. I would continue to help improve the high calcium levels and try to improve the creatinine down into the low 2s. No indication for emergent dialysis at this time. Overall, the patient with hypercalcemia that is improving compared to Tuesday and should continue to improve with IV fluids, still with an unclear etiology of the hypercalcemia and going to do endocrinology evaluation as an outpatient. One consideration would be to do a 24-hour urine for calcium excretion and I will go ahead and order that 24-hour urine for calcium during this admission. The patient has received several doses of Zometa as an outpatient and we will hold off on any further dose of Zometa given the patient's elevated creatinine. Hopefully, kidney function also continues to improve with IV fluids and once creatinine is down into the low 2s, we will plan on discharge. Appreciate consultation. MICHELLE
[2016-09-20] MEDS ORDERED: GLUCAGON FOR INJ 1 MG VIAL SQ PRN (17:45)
[2016-09-20] MEDS ORDERED: DEXTROSE 50% 50 ML SYR IV PRN (17:45)
[2016-09-20] MEDS ORDERED: GLUCOSE 10 TABS/TUBE PO PRN (17:45)
[2016-09-20] MEDS ORDERED: GLUCOSE 40% GEL 15 GM TUBE PO PRN (17:45)
[2016-09-20] MEDS ORDERED: PHARMACY GLYCEMIC MGMT CONSULT PRN (17:57)
[2016-09-20] MEDS: INSULIN ASPART 100 UNITS/ML 3 ML PEN SC SCH (21:00)
[2016-09-20] MEDS: OMEGA-3 (PURIFIED FISH OIL) 1 GM CAP PO SCH (21:51)
[2016-09-20] MEDS: BUDESONIDE/FORMOTEROL FUMARATE 160/4.5 60 PUFFS/INHALER INH SCH (21:51)
[2016-09-20] MEDS: HEPARIN SOD 5000 UNIT/0.5 ML CARP SQ SCH (21:54)
[2016-09-20 23:59] VITALS: BP 139/53; PULSE 71; TEMP 36.5; O2SAT 92
[2016-09-21] MEDS: SODIUM CHLORIDE 0.9% 1000ML 1,000 ML IV SCH ×2 (01:15→10:51)
[2016-09-21 05:55] LABS: HEMATOCRIT 29.1 % (37-47); MEAN CORPUSCULAR HGB CONC 33.3 g/dl (32-36); PLATELET COUNT 159 K/uL (130-400); RED BLOOD COUNT 3.13 M/uL (4.2-5.4); WHITE BLOOD COUNT 7.99 K/uL (4.8-10.8)
[2016-09-21 06:27] LABS: BUN/CREATININE RATIO 15.5 (10-20); CALCIUM 9.2 mg/dl (8.5-10.1); CREATININE 2.7 mg/dl (0.60-1.20); POTASSIUM 3.7 mmol/L (3.5-5.1)
[2016-09-21 08:18] VITALS: BP 137/58; PULSE 76; TEMP 36.7; O2SAT 92
[2016-09-21] MEDS: BUDESONIDE/FORMOTEROL FUMARATE 160/4.5 60 PUFFS/INHALER INH SCH ×2 (08:30→20:35)
[2016-09-21] MEDS: OMEGA-3 (PURIFIED FISH OIL) 1 GM CAP PO SCH ×2 (08:34→20:35)
[2016-09-21] MEDS: PANTOprazole SOD 40 MG TAB PO SCH (08:34)
[2016-09-21] MEDS: METOPROLOL SUCC 50MG EXT REL TAB PO SCH (08:35)
[2016-09-21] MEDS: AMLODIPINE BESYLATE 5 MG TAB PO SCH (08:35)
[2016-09-21] MEDS: CLOPIDOGREL BISULFATE 75 MG TAB PO SCH (08:35)
[2016-09-21] MEDS: ATORVASTATIN 40 MG TAB PO SCH (08:35)
[2016-09-21] MEDS: INSULIN ASPART 100 UNITS/ML 3 ML PEN SC SCH ×4 (08:36→20:34)
[2016-09-21] MEDS: HEPARIN SOD 5000 UNIT/0.5 ML CARP SQ SCH ×2 (08:42→20:34)
[2016-09-21 08:53] VITALS: PULSE 85; O2SAT 96
[2016-09-21] MEDS: ALBUT/IPRATROP 3MG/0.5MG NEB 3 ML VIAL INH PRN ×2 (08:53→18:49)
--- NOTE | 2016-09-21 14:44 | Progress Note ---
Internal Med Progress Note Date of Service: Sep 21, 2016. Provider Documentation: SUBJECTIVE: The patient was seen and examined Denies any complaints OBJECTIVE: Vital Signs-as noted below Exam: General-No distress at rest Eyes-normal ENT-normal Neck-supple Lungs-clear to ausucltate bilaterally Heart-Regular,no murmur appreciated Abdomen-Benign,no masses,bowel sound present Extremities-No edema Neuro-AAOx3 Lab data as noted below. ASSESSMENT & PLAN: DEMETRIO ON CKD STAGE III, - patient referred for direct admission by Dr. Ferrell for worsening renal function and hypercalcemia; patient asymptomatic - outpatient labs 09/17 - creat 3.1, Ca+ 11.4 -> today creat 3.1, Ca+ 10.2 -On IVF and renal function is improving -appreciate Nephrology input RECURRENT HYPERCALCEMIA - patient has had extensive work up, including malignancy work up, and cause remains unknown; possible due to dehydration from poor PO intake -mild elevation of PTHrP; however, workup looking for cancer has been uneventful with CT scan of the abdomen and pelvis as well as CT of the chest. - RECEIVED Zometa as an OP before -Antonio normalized -OP appointment with Card Doffer CAD - stable, no reports of chest pain - continue ASA, Plavix, beta flor, and statin HTN - BP controlled, continue metoprolol and amlodipine COPD - no signs of acute exacerbation - continue home inhalers DM - recently taken off insulin and oral agents due to hypoglycemia - hgb a1c 7.6 06/2015 - glucose on labs today 195 - will utilize SSI while hospitalized DVT PROPHYLAXIS - SQ heparin CODE STATUS - Patient is a full code as per my discussion with her. DISPO Likely discharge tomorrow Vital Signs: Date Time Temp Pulse Resp B/P Pulse Ox O2 Delivery O2 Flow Rate FiO2 09/21/16 08:53 85 18 96 Room Air 09/21/16 08:18 36.7 76 18 137/58 92 Room Air 09/21/16 08:00 Room Air 09/21/16 00:00 Room Air 09/20/16 23:59 36.5 71 16 139/53 92 Room Air 09/20/16 16:00 94 Room Air 09/20/16 14:50 36.8 78 20 140/57 94 Room Air Lab Results: Results Past 24 Hours Test 09/20/16 16:37 09/20/16 20:00 09/21/16 05:25 09/21/16 07:54 Range/Units Bedside Glucose 129 145 72 70-90 mg/dl White Blood Count 7.99 4.8-10.8 K/uL Red Blood Count 3.13 4.2-5.4 M/uL Hemoglobin 9.7 12.0-16.0 g/dL Hematocrit 29.1 37-47 % Mean Corpuscular Volume 93.0 80-100 fL Mean Corpuscular Hemoglobin 31.0 25-34 pg Mean Corpuscular Hemoglobin Concent 33.3 32-36 g/dl RDW Standard Deviation 47.2 36.4-46.3 fL RDW Coefficient of Variation 13.9 11.5-14.5 % Platelet Count 159 130-400 K/uL Mean Platelet Volume 10.0 7.4-10.4 fL Sodium Level 147 136-145 mmol/L Potassium Level 3.7 3.5-5.1 mmol/L Chloride Level 117 98-107 mmol/L Carbon Dioxide Level 20 21-32 mmol/L Anion Gap 10.0 3-11 mmol/L Blood Urea Nitrogen 42 7-18 mg/dl Creatinine 2.70 0.60-1.20 mg/dl Est Creatinine Clear Calc Drug Dose 10.5 ml/min Estimated GFR () 18.8 Estimated GFR (Non- 16.2 BUN/Creatinine Ratio 15.5 10-20 Random Glucose 81 70-99 mg/dl Calcium Level 9.2 8.5-10.1 mg/dl Test 09/21/16 11:10 Range/Units Bedside Glucose 149 70-90 mg/dl
--- NOTE | 2016-09-21 15:20 | Nephrology Progress Note ---
Nephrology Progress Note Date of Service: Sep 21, 2016. Subjective 76 yo female with demetrio and hypercalcemia which is recurrent in nature and improves with iv fluids. pt urinating much more now and tolerating iv fluids well. currently doing a 24 hour urine collection for calcium. Objective Date Time Temp Pulse Resp B/P Pulse Ox O2 Delivery O2 Flow Rate FiO2 09/21/16 08:53 85 18 96 Room Air 09/21/16 08:18 36.7 76 18 137/58 92 Room Air 09/21/16 08:00 Room Air 09/21/16 00:00 Room Air 09/20/16 23:59 36.5 71 16 139/53 92 Room Air 09/20/16 16:00 94 Room Air Physical Exam: General-aaox3, thin Eyes-no scleral icterus ENT-mmm Neck-supple Lungs-decreased at bases Heart-distant heart sounds Abdomen-bs+ s/nt/nd Extremities-no c/c/e Neuro-nonfocal Current Inpatient Medications Medications (Trade) Dose Ordered Sig/Jennifer Route Start Time Stop Time Status Last Admin Dose Admin Acetaminophen (Tylenol Tab) 650 mg Q4H PRN PO 09/20/16 11:30 10/20/16 11:29 09/20/16 16:23 650 MG Ondansetron HCl (Zofran Inj) 4 mg Q6H PRN IV 09/20/16 11:30 10/20/16 11:29 Amlodipine Besylate (Norvasc Tab) 10 mg QAM PO 09/21/16 08:00 10/21/16 07:59 09/21/16 08:35 10 MG Atorvastatin Calcium (Lipitor Tab) 80 mg DAILY PO 09/21/16 08:00 10/21/16 07:59 09/21/16 08:35 80 MG Budesonide/ Formoterol Fumarate (Symbicort 160/ 4.5 Inh) 2 puffs BID INH 09/20/16 20:00 10/20/16 19:59 09/21/16 08:30 2 PUFFS Clopidogrel Bisulfate (plAVix TAB) 75 mg DAILY PO 09/21/16 08:00 10/21/16 07:59 09/21/16 08:35 75 MG Fish Oil ([place]-3 (Purified Fish Oil) Cap) 1 gm BID PO 09/20/16 20:00 10/20/16 19:59 09/21/16 08:34 1 GM Albuterol/ Ipratropium (Duoneb) 1 ml QID PRN INH 09/20/16 12:15 10/20/16 12:14 09/21/16 08:53 1 ML Metoprolol Succinate (Toprol Xl Tab) 100 mg DAILY PO 09/21/16 08:00 10/21/16 07:59 09/21/16 08:35 100 MG Terazosin HCl (Hytrin Cap) 2 mg DAILY PO 09/21/16 08:00 10/21/16 07:59 09/21/16 08:36 2 MG Pantoprazole Sodium (Protonix Tab) 40 mg DAILY PO 09/21/16 08:00 10/21/16 07:59 09/21/16 08:34 40 MG Heparin Sodium (Porcine) 5000 unit 5,000 unit Q12 SQ 09/20/16 21:00 10/20/16 20:59 09/21/16 08:42 5,000 UNIT Sodium Chloride (Nss 1000ml) 1,000 ml @ 100 mls/hr Q10H IV 09/20/16 14:45 10/20/16 14:44 09/21/16 10:51 100 MLS/HR Insulin Aspart (novoLOG ASPART) SLIDING SCALE If C... ACHS SC 09/20/16 21:00 10/20/16 20:59 Glucose (Glucose 40% Gel) 15-30 GRAMS 15 GRAMS... UD PRN PO 09/20/16 17:45 10/20/16 17:44 Glucose (Glucose Chew Tab) 4-8 Tablets 4 Tabl... UD PRN PO 09/20/16 17:45 10/20/16 17:44 Dextrose (Dextrose 50% 50ML Syringe) 25-50ML OF 50% DW IV FOR... UD PRN IV 09/20/16 17:45 10/20/16 17:44 Glucagon (Glucagon Inj) 1 mg UD PRN SQ 09/20/16 17:45 10/20/16 17:44 Enteral Nutritional Formula (Boost Glucose Control) 1 can BID PO 09/21/16 20:00 10/21/16 19:59 Last 24 Hours Test 09/20/16 16:37 09/20/16 20:00 09/21/16 05:25 09/21/16 07:54 Bedside Glucose 129 mg/dl 145 mg/dl 72 mg/dl White Blood Count 7.99 K/uL Red Blood Count 3.13 M/uL Hemoglobin 9.7 g/dL Hematocrit 29.1 % Mean Corpuscular Volume 93.0 fL Mean Corpuscular Hemoglobin 31.0 pg Mean Corpuscular Hemoglobin Concent 33.3 g/dl RDW Standard Deviation 47.2 fL RDW Coefficient of Variation 13.9 % Platelet Count 159 K/uL Mean Platelet Volume 10.0 fL Sodium Level 147 mmol/L Potassium Level 3.7 mmol/L Chloride Level 117 mmol/L Carbon Dioxide Level 20 mmol/L Anion Gap 10.0 mmol/L Blood Urea Nitrogen 42 mg/dl Creatinine 2.70 mg/dl Est Creatinine Clear Calc Drug Dose 10.5 ml/min Estimated GFR () 18.8 Estimated GFR (Non- 16.2 BUN/Creatinine Ratio 15.5 Random Glucose 81 mg/dl Calcium Level 9.2 mg/dl Test 09/21/16 11:10 Bedside Glucose 149 mg/dl Assessment & Plan hypercalcemia-unclear etiology-workup essentially negative. did have mildly elevated pthrp but workup for cancer unrevealing. doing a 24 hour urine for calcium currently. improving with fluids and has normalized. DEMETRIO-goal creatinine is 1.8. creatinine is improving with iv fluids and anticipate discharge tomorrow. hypernatremia-sodium levels worsening on current normal saline. will switch to 1 /2ns and decrease rate to 80cc/hr.
[2016-09-21 15:30] VITALS: BP 144/58; PULSE 83; TEMP 37; O2SAT 92
[2016-09-21] MEDS: ACETAMINOPHEN 325 MG TAB PO PRN (15:59)
[2016-09-21] MEDS: SODIUM CHLORIDE 0.45% 1000ML 1,000 ML IV SCH (16:00)
[2016-09-21 18:49] VITALS: PULSE 68; O2SAT 93
[2016-09-21 20:00] VITALS: O2SAT 93
[2016-09-21] MEDS: BOOST GLUCOSE CONTROL PO SCH (20:00)
[2016-09-21 23:09] VITALS: BP 156/56; PULSE 79; TEMP 36.8; O2SAT 93
[2016-09-22] VITALS: O2SAT 93
[2016-09-22] MEDS: SODIUM CHLORIDE 0.45% 1000ML 1,000 ML IV SCH (04:27)
[2016-09-22 07:08] VITALS: BP 133/58; PULSE 72; TEMP 36.8; O2SAT 95
[2016-09-22 07:13] LABS: BUN/CREATININE RATIO 17.9 (10-20); CALCIUM 9.2 mg/dl (8.5-10.1); CREATININE 2.1 mg/dl (0.60-1.20); POTASSIUM 3.4 mmol/L (3.5-5.1)
[2016-09-22] MEDS: INSULIN ASPART 100 UNITS/ML 3 ML PEN SC SCH ×2 (08:03→12:29)
[2016-09-22] MEDS: METOPROLOL SUCC 50MG EXT REL TAB PO SCH (08:15)
[2016-09-22] MEDS: CLOPIDOGREL BISULFATE 75 MG TAB PO SCH (08:15)
[2016-09-22] MEDS: PANTOprazole SOD 40 MG TAB PO SCH (08:16)
[2016-09-22] MEDS: OMEGA-3 (PURIFIED FISH OIL) 1 GM CAP PO SCH (08:16)
[2016-09-22] MEDS: AMLODIPINE BESYLATE 5 MG TAB PO SCH (08:16)
[2016-09-22] MEDS: ATORVASTATIN 40 MG TAB PO SCH (08:16)
[2016-09-22 08:17] VITALS: PULSE 71; O2SAT 92
[2016-09-22] MEDS: BUDESONIDE/FORMOTEROL FUMARATE 160/4.5 60 PUFFS/INHALER INH SCH (08:17)
[2016-09-22] MEDS: BOOST GLUCOSE CONTROL PO SCH (08:17)
[2016-09-22] MEDS: ALBUT/IPRATROP 3MG/0.5MG NEB 3 ML VIAL INH PRN (08:29)
[2016-09-22 08:30] VITALS: O2SAT 95
--- NOTE | 2016-09-22 08:43 | Nephrology Progress Note ---
Nephrology Progress Note Date of Service: Sep 22, 2016. Subjective 76 yo female with demetrio and hypercalcemia which is recurrent in nature and improves with iv fluids. pt urinating well and tolerating the fluids well. recently finished the 24 hour urine collection. no complaints. pt requesting to go home today. Objective Date Time Temp Pulse Resp B/P Pulse Ox O2 Delivery O2 Flow Rate FiO2 09/22/16 08:17 71 16 92 Room Air 09/22/16 07:08 36.8 72 18 133/58 95 Room Air 09/22/16 00:00 93 Room Air 09/21/16 23:09 36.8 79 20 156/56 93 Room Air 09/21/16 20:00 93 Room Air 09/21/16 18:49 68 18 93 Room Air 09/21/16 16:00 Room Air 09/21/16 15:30 37.0 83 20 144/58 92 Room Air 09/21/16 08:53 85 18 96 Room Air Physical Exam: General-aaox3, thin Eyes-no scleral icterus ENT-mmm Neck-supple Lungs-cta Heart-distant heart sounds Abdomen-bs+ s/nt/nd Extremities-no c/c/e Neuro-nonfocal Current Inpatient Medications Medications (Trade) Dose Ordered Sig/Jennifer Route Start Time Stop Time Status Last Admin Dose Admin Acetaminophen (Tylenol Tab) 650 mg Q4H PRN PO 09/20/16 11:30 10/20/16 11:29 09/21/16 15:59 650 MG Ondansetron HCl (Zofran Inj) 4 mg Q6H PRN IV 09/20/16 11:30 10/20/16 11:29 Amlodipine Besylate (Norvasc Tab) 10 mg QAM PO 09/21/16 08:00 10/21/16 07:59 09/22/16 08:16 10 MG Atorvastatin Calcium (Lipitor Tab) 80 mg DAILY PO 09/21/16 08:00 10/21/16 07:59 09/22/16 08:16 80 MG Budesonide/ Formoterol Fumarate (Symbicort 160/ 4.5 Inh) 2 puffs BID INH 09/20/16 20:00 10/20/16 19:59 09/22/16 08:17 2 PUFFS Clopidogrel Bisulfate (plAVix TAB) 75 mg DAILY PO 09/21/16 08:00 10/21/16 07:59 09/22/16 08:15 75 MG Fish Oil ([place]-3 (Purified Fish Oil) Cap) 1 gm BID PO 09/20/16 20:00 10/20/16 19:59 09/22/16 08:16 1 GM Albuterol/ Ipratropium (Duoneb) 1 ml QID PRN INH 09/20/16 12:15 10/20/16 12:14 09/22/16 08:29 3 ML Metoprolol Succinate (Toprol Xl Tab) 100 mg DAILY PO 09/21/16 08:00 10/21/16 07:59 09/22/16 08:15 100 MG Terazosin HCl (Hytrin Cap) 2 mg DAILY PO 09/21/16 08:00 10/21/16 07:59 09/22/16 08:15 2 MG Pantoprazole Sodium (Protonix Tab) 40 mg DAILY PO 09/21/16 08:00 10/21/16 07:59 09/22/16 08:16 40 MG Heparin Sodium (Porcine) (Heparin Sq 5000 Unit/0.5ml) 5,000 unit Q12 SQ 09/20/16 21:00 10/20/16 20:59 09/21/16 20:34 5,000 UNIT Insulin Aspart (novoLOG ASPART) SLIDING SCALE If C... ACHS SC 09/20/16 21:00 10/20/16 20:59 09/21/16 20:34 1 UNITS Glucose (Glucose 40% Gel) 15-30 GRAMS 15 GRAMS... UD PRN PO 09/20/16 17:45 10/20/16 17:44 Glucose (Glucose Chew Tab) 4-8 Tablets 4 Tabl... UD PRN PO 09/20/16 17:45 10/20/16 17:44 Dextrose (Dextrose 50% 50ML Syringe) 25-50ML OF 50% DW IV FOR... UD PRN IV 09/20/16 17:45 10/20/16 17:44 Glucagon (Glucagon Inj) 1 mg UD PRN SQ 09/20/16 17:45 10/20/16 17:44 Enteral Nutritional Formula 1 can 1 can BID PO 09/21/16 20:00 10/21/16 19:59 09/22/16 08:17 1 CAN Sodium Chloride (1/2 Nss 1000ml) 1,000 ml @ 80 mls/hr [id number] IV 09/21/16 15:15 10/21/16 15:14 09/22/16 04:27 80 MLS/HR Last 24 Hours Test 09/21/16 11:10 09/21/16 16:21 09/21/16 19:53 09/22/16 05:26 Bedside Glucose 149 mg/dl 126 mg/dl 198 mg/dl Sodium Level 145 mmol/L Potassium Level 3.4 mmol/L Chloride Level 117 mmol/L Carbon Dioxide Level 17 mmol/L Anion Gap 11.0 mmol/L Blood Urea Nitrogen 38 mg/dl Creatinine 2.10 mg/dl Est Creatinine Clear Calc Drug Dose 13.5 ml/min Estimated GFR () 25.5 Estimated GFR (Non- 22.0 BUN/Creatinine Ratio 17.9 Random Glucose 83 mg/dl Calcium Level 9.2 mg/dl Test 09/22/16 07:11 Bedside Glucose 80 mg/dl Assessment & Plan hypercalcemia-unclear etiology-workup essentially negative. did have mildly elevated pthrp but workup for cancer unrevealing. has had a couple of zometa doses as outpt which have not helped. finished the 24 hour urine for calcium excretion. ok from renal perspective to go home today. encourage fluids at home and recheck bmp as an outpt in a week. DEMETRIO-goal creatinine is 1.8. creatinine improved to 2.1 which is much better compared to admission. hypokalemia-would give kdur 40meq today to help with the lower k levels today.
[2016-09-22] MEDS ORDERED: POTASSIUM CHLORIDE 10 MEQ TABCR PO ONE (08:45)
[2016-09-22] MEDS: HEPARIN SOD 5000 UNIT/0.5 ML CARP SQ SCH (10:30)
[2016-09-22] MEDS ORDERED: POTASSIUM CHLORIDE 10 MEQ TABCR PO STA (10:43)
--- NOTE | 2016-09-22 10:47 | Progress Note ---
Internal Med Progress Note Date of Service: Sep 22, 2016. Provider Documentation: SUBJECTIVE: The patient was seen and examined Wants to go home today Denies any complaints Ambulating without any difficulty OBJECTIVE: Vital Signs-as noted below Exam: General-No distress at rest Eyes-normal ENT-normal Neck-supple Lungs-clear to ausucltate bilaterally Heart-Regular,no murmur appreciated Abdomen-Benign,no masses,bowel sound present Extremities-No edema Neuro-AAOx3 Lab data as noted below. ASSESSMENT & PLAN: DEMETRIO ON CKD STAGE III, - patient referred for direct admission by Dr. Ferrell for worsening renal function and hypercalcemia; patient asymptomatic - outpatient labs 09/17 - creat 3.1, Ca+ 11.4 -> today creat 3.1, Ca+ 10.2 -On IVF and renal function is improved -appreciate Nephrology input -Creatinine ~2 RECURRENT HYPERCALCEMIA - patient has had extensive work up, including malignancy work up, and cause remains unknown; possible due to dehydration from poor PO intake -mild elevation of PTHrP; however, workup looking for cancer has been uneventful with CT scan of the abdomen and pelvis as well as CT of the chest. - RECEIVED Zometa as an OP before -OP appointment with Autographer -Calcium normalized -advised plenty of fluid orally as an OP CAD - stable, no reports of chest pain - continue ASA, Plavix, beta flor, and statin HTN - BP controlled, continue metoprolol and amlodipine COPD - no signs of acute exacerbation - continue home inhalers DM - recently taken off insulin and oral agents due to hypoglycemia - hgb a1c 7.6 06/2015 - glucose on labs today 195 - will utilize SSI while hospitalized DVT PROPHYLAXIS - SQ heparin CODE STATUS - Patient is a full code as per my discussion with her. DISPO Discharge home today Vital Signs: Date Time Temp Pulse Resp B/P Pulse Ox O2 Delivery O2 Flow Rate FiO2 09/22/16 08:30 95 Room Air 09/22/16 08:17 71 16 92 Room Air 09/22/16 07:08 36.8 72 18 133/58 95 Room Air 09/22/16 00:00 93 Room Air 09/21/16 23:09 36.8 79 20 156/56 93 Room Air 09/21/16 20:00 93 Room Air 09/21/16 18:49 68 18 93 Room Air 09/21/16 16:00 Room Air 09/21/16 15:30 37.0 83 20 144/58 92 Room Air Lab Results: Results Past 24 Hours Test 09/21/16 11:10 09/21/16 16:21 09/21/16 19:53 09/22/16 05:26 Range/Units Bedside Glucose 149 126 198 70-90 mg/dl Sodium Level 145 136-145 mmol/L Potassium Level 3.4 3.5-5.1 mmol/L Chloride Level 117 98-107 mmol/L Carbon Dioxide Level 17 21-32 mmol/L Anion Gap 11.0 3-11 mmol/L Blood Urea Nitrogen 38 7-18 mg/dl Creatinine 2.10 0.60-1.20 mg/dl Est Creatinine Clear Calc Drug Dose 13.5 ml/min Estimated GFR () 25.5 Estimated GFR (Non- 22.0 BUN/Creatinine Ratio 17.9 10-20 Random Glucose 83 70-99 mg/dl Calcium Level 9.2 8.5-10.1 mg/dl Test 09/22/16 07:11 Range/Units Bedside Glucose 80 70-90 mg/dl
[2016-09-22 11:57] VITALS: BP 133/58; PULSE 71; TEMP 36.8; O2SAT 95
--- NOTE | 2016-09-22 13:08 | Discharge Instructions ---
Discharge Instructions Date of Service Sep 22, 2016. Admission Reason for Admission: Hypercalcemia,Triston Discharge Discharge Diagnosis / Problem: Hypercalcemia-normalized,Acute Renal failure- improved Discharge Goals Goal(s): Prevent Disease Progression Activity Recommendations Activity Limitations: resume your previous activity . Instructions / Follow-Up Instructions / Follow-Up Dr Baumann on 09/29/16.Check BMP Current Hospital Diet Patient's current hospital diet: AHA Diet (Heart Healthy), Renal Diet, Diabetes Type 2 Diet Discharge Diet Recommended Diet: Diabetes Type 2 Diet, Renal Diet Fluid Restriction: None (Drink More fluid) Pending Studies Studies pending at discharge: no Medical Emergencies . Who to Call and When: Medical Emergencies: If at any time you feel your situation is an emergency, please call 911 immediately. . Non-Emergent Contact Non-Emergency issues call your: Primary Care Provider . Past History Medical & Surgical History: (1) Hypercalcemia (2) CAD (coronary artery disease) (3) PVD (peripheral vascular disease) (4) GERD (gastroesophageal reflux disease) (5) DM type 2 (diabetes mellitus, type 2) (6) Ischemic cardiomyopathy (7) Hx of appendectomy (8) History of hysterectomy (9) S/P carotid endarterectomy (10) H/O aorto-femoral bypass (11) S/P femoral-popliteal bypass surgery . "Provider Documentation" section prepared by Danyell Newman. . VTE Core Measure Inpt VTE Proph given/why not?: Unfractionated heparin SQ
--- NOTE | 2016-09-22 13:12 | Discharge Summary ---
Discharge Summary Date of Service Sep 22, 2016. Discharge Summary Admission Date: Sep 20, 2016 at 10:50 Discharge Date: Sep 22, 2016 Discharge Disposition: Home Principal Diagnosis: Hypercalcemia Secondary Diagnoses/Problems: Please see H&P and Hospital Progress note Consultations: Nephrology Medication Reconciliation Continued Medications: Acetaminophen Tab (Tylenol) 325 Mg Tab 650 MG PO Q4 PRN for Headache or Pain, TAB Amlodipine Besylate (Amlodipine Besylate) 5 Mg Tab 10 MG PO QAM for 90 Days, #90 TAB 2 Refills Atorvastatin (Lipitor) 80 Mg Tab 1 TAB PO DAILY for 30 Days, #30 TAB 5 Refills Budesonide/Formoterol Fumarate (Symbicort 160/4.5 Inhaler) 120 Puffs/ Aero 2 PUFFS INH BID for 30 Days, #1 INHALER 3 Refills Clopidogrel (Plavix) 75 Mg Tab 75 MG PO DAILY Fish Oil ([place]-3) 1 Ea Cap 1 CAP PO BID, CAP Ipratropium-Albuterol (Duoneb) [place] 1 TREATMENT INH QID PRN for SOB/Wheezing, INHA Ipratropium/Albuterol (Combivent) Aer 2 PUFFS INH QID PRN for Shortness of Breath, INH Metoprolol Succ (Toprol Xl) (Toprol-Xl ) 100 Mg Tabcr 100 MG PO DAILY, TAB Nitroglycerin (Nitrostat) 0.4 Mg Tab 0.4 MG UT PRN, BTL Pantoprazole Sodium (Protonix) 20 Mg Tab 20 MG PO DAILY, TAB Terazosin Hcl (Hytrin) 2 Mg Cap 2 MG PO DAILY, CAP Admission Information HPI (per Admitting provider): 76 year old female who was referred for direct admission by Dr. Ferrell for hypercalcemia and DEMETRIO. Patient was recently admitted to [facility] 08/14 - 08/16 for the same. Extensive work up has been unrevealing for cause of DEMETRIO and hypercalcemia. Patient has improved the past with Zometa and IVF however DEMETRIO and hypercalcemia have been returning. Last admission it was felt the cause was possibly due to poor PO intake. When she was discharged, creat was 2.3. Outpatient labs obtained on 09/17 showed creat 3.0 and Ca+ 11.4. Patient was referred to the hospital at that time however did not want to come to the hospital over Easter weekend. Patient therefore presented to the hospital today. Patient reports she has been feeling well. Feels as though she is eating and drinking adequately. She denies chest pain, shortness of breath, lightheadedness, dizziness, diaphoresis, and syncope. No abdominal pain, nausea , vomiting, or diarrhea. She denies fever and chills. No urinary symptoms. At the time of my exam, patient is resting in bed in no acute distress. Past Medical/Surgical History Medical Problems: (1) CAD (coronary artery disease) Permanent Comment: NSTEMI 01/2009 - BMS to distal left circumflex, cath at that time showed 100% proximal RCA occlusion Status: Chronic (2) CKD (chronic kidney disease), stage IV Status: Chronic (3) COPD, severe Permanent Comment: oxygen requiring Status: Chronic (4) DM type 2 (diabetes mellitus, type 2) Status: Chronic (5) Dyslipidemia Status: Chronic (6) Femoral artery aneurysm, right Permanent Comment: s/p repair Status: Chronic (7) GERD (gastroesophageal reflux disease) Status: Chronic (8) Ischemic cardiomyopathy Permanent Comment: echo 04/2015- EF 50-55%, grade I diastolic dysfunction Status: Chronic (9) PVD (peripheral vascular disease) Status: Chronic Surgical Problems: (1) H/O aorto-femoral bypass Status: Chronic (2) History of hysterectomy Status: Chronic (3) Hx of appendectomy Status: Chronic (4) Hx of cataract surgery Status: Chronic (5) S/P carotid endarterectomy Permanent Comment: left in 2001, left carotid stent placed 2002 Status: Chronic (6) S/P femoral-popliteal bypass surgery Status: Chronic Family History Cardiac disorder FATHER Social History Smoking Status: Former Smoker Alcohol Use: none Immunizations History of Influenza Vaccine: Yes Influenza Vaccine Date: Mar 09, 2016 History of Tetanus Vaccine?: Yes Tetanus Immunization Date: Jan 04, 2008 History of Pneumococcal: Yes Pneumococcal Date: Aug 06, 2014 Multi-Drug Resistant Organisms History of MDRO: No Allergies Coded Allergies: Codeine (Verified Allergy, Mild, 06/09/16) ABD DISTRESS Amoxicillin (Verified Allergy, Unknown, unknown, 08/14/16) Aspirin (Verified Allergy, Unknown, UNKNOWN, 06/09/16) PER HER DOCTOR, SHE IS NOT SUPPOSE TO TAKE IT BECAUSE OF HER KIDNEYS Isosorbide (Verified Allergy, Unknown, unknown, 08/14/16) Home Medications Scheduled Amlodipine Besylate (Amlodipine Besylate), 10 MG PO QAM Atorvastatin (Lipitor), 1 TAB PO DAILY Budesonide/Formoterol Fumarate (Symbicort 160/4.5 Inhaler), 2 PUFFS INH BID Clopidogrel (Plavix), 75 MG PO DAILY Fish Oil ([place]-3), 1 CAP PO BID Metoprolol Succ (Toprol Xl) (Toprol-Xl ), 100 MG PO DAILY Nitroglycerin (Nitrostat), 0.4 MG UT PRN Pantoprazole Sodium (Protonix), 20 MG PO DAILY Terazosin Hcl (Hytrin), 2 MG PO DAILY Scheduled PRN Acetaminophen Tab (Tylenol), 650 MG PO Q4 PRN for Headache or Pain Ipratropium-Albuterol (Duoneb), 1 TREATMENT INH QID PRN for SOB/Wheezing Ipratropium/Albuterol (Combivent), 2 PUFFS INH QID PRN for Shortness of Breath Review of Systems 10 point review of systems was completed with the pertinent positives and negatives noted per the HPI Physical Exam Vital Signs Date Time Temp Pulse Resp B/P Pulse Ox O2 Delivery O2 Flow Rate FiO2 09/20/16 14:50 36.8 78 20 140/57 94 Room Air 09/20/16 12:03 Room Air 09/20/16 11:12 36.8 84 16 113/54 96 Room Air General Appearance: no apparent distress Head: normocephalic Eyes: normal inspection ENT: hearing grossly normal Neck: supple, no JVD Respiratory/Chest: lungs clear, normal breath sounds, no respiratory distress Cardiovascular: regular rate, rhythm, no edema, normal peripheral pulses Abdomen/GI: normal bowel sounds, non tender, soft Extremities/Musculoskelatal: normal inspection, no calf tenderness Neurologic/Psych: no motor/sensory deficits, alert, normal mood/affect, oriented x 3 Skin: normal color, warm/dry Diagnostics Laboratory Results Results Past 24 Hours Test 09/20/16 12:59 09/20/16 15:37 Range/Units White Blood Count 9.25 4.8-10.8 K/uL Red Blood Count 3.23 4.2-5.4 M/uL Hemoglobin 10.2 12.0-16.0 g/dL Hematocrit 30.0 37-47 % Mean Corpuscular Volume 92.9 80-100 fL Mean Corpuscular Hemoglobin 31.6 25-34 pg Mean Corpuscular Hemoglobin Concent 34.0 32-36 g/dl RDW Standard Deviation 47.8 36.4-46.3 fL RDW Coefficient of Variation 14.1 11.5-14.5 % Platelet Count 158 130-400 K/uL Mean Platelet Volume 10.1 7.4-10.4 fL Sodium Level 143 136-145 mmol/L Potassium Level 3.6 3.5-5.1 mmol/L Chloride Level 107 98-107 mmol/L Carbon Dioxide Level 27 21-32 mmol/L Anion Gap 9.0 3-11 mmol/L Blood Urea Nitrogen 51 7-18 mg/dl Creatinine 3.10 0.60-1.20 mg/dl Est Creatinine Clear Calc Drug Dose 9.1 ml/min Estimated GFR () 15.9 Estimated GFR (Non- 13.7 BUN/Creatinine Ratio 16.3 10-20 Random Glucose 195 70-99 mg/dl Calcium Level 10.2 8.5-10.1 mg/dl Impression Assessment and Plan DEMETRIO ON CKD STAGE III, HYPERCALCEMIA - admitted to med/surg - patient referred for direct admission by Dr. Ferrell for worsening renal function and hypercalcemia; patient asymptomatic - outpatient labs 09/17 - creat 3.1, Ca+ 11.4 -> today creat 3.1, Ca+ 10.2 - patient has had extensive work up, including malignancy work up, and cause remains unknown; possible due to dehydration from poor PO intake - as Ca+ level is near normal today, will just give IVF and hold off on Zometa - follow labs - nephro consult CAD - stable, no reports of chest pain - continue ASA, Plavix, beta flor, and statin HTN - BP controlled, continue metoprolol and amlodipine COPD - no signs of acute exacerbation - continue home inhalers DM - recently taken off insulin and oral agents due to hypoglycemia - hgb a1c 7.6 06/2015 - glucose on labs today 195 - will utilize SSI while hospitalized DVT PROPHYLAXIS - SQ heparin CODE STATUS - Patient is a full code as per my discussion with her. DISPO - In my clinical judgment this beneficiary meets acute admission criteria, established by [facility], that includes being hospitalized through two midnights. Advanced Directives Existing Living Will: Yes Existing Power of Manager Contract: Yes VTE Prophylaxis VTE Risk Assessment Done? Y/N: Yes Risk Level: Moderate Given or contraindicated: Unfractionated heparin SQ Note ATTENDING ADDENDUM Record reviewed. Patient interviewed and examined. Care coordinated with MAX Carr. Please refer to her documentation for patient's history. Briefly, 76 YO female with history of ischemic heart disease, COPD, CKD IIII, DM , and other problems. Followed by Nephrology for CKD and hypercalcemia. Outpatient labs demonstrated worsening renal function and hypercalcemia. Referred for hospitalization. Patient feels tired, no other complaints. EXAM: General- no distress VS- as noted HEENT- anicteric Neck- no JVD Lungs- clear Heart- RRR, no gallop Abdomen- + BS, soft, nontender Extremities- no pretibial edema or calf tenderness Neuro- alert DATA: BUN 51, creatinine 3.1, K 3.6, Ca 10.2. Other lab studies as noted. ASSESSMENT AND PLAN: Acute kidney injury superimposed on CKD III. Hypercalcemia, etiology not determined. IV fluids. Consult Nephrology. Please refer to KELLY Mathur's documentation for discussion of other issues. Edu Arroyo MD Physical Exam (per Admitting): General Appearance: no apparent distress Head: normocephalic Eyes: normal inspection ENT: hearing grossly normal Neck: supple, no JVD Respiratory/Chest: lungs clear, normal breath sounds, no respiratory distress Cardiovascular: regular rate, rhythm, no edema, normal peripheral pulses Abdomen/GI: normal bowel sounds, non tender, soft Extremities/Musculoskelatal: normal inspection, no calf tenderness Neurologic/Psych: no motor/sensory deficits, alert, normal mood/affect, oriented x 3 Skin: normal color, warm/dry Hospital Course DEMTERIO ON CKD STAGE III, - patient referred for direct admission by Dr. Ferrell for worsening renal function and hypercalcemia; patient asymptomatic - outpatient labs 09/17 - creat 3.1, Ca+ 11.4 -> today creat 3.1, Ca+ 10.2 -On IVF and renal function is improved -appreciate Nephrology input -Creatinine ~2 RECURRENT HYPERCALCEMIA - patient has had extensive work up, including malignancy work up, and cause remains unknown; possible due to dehydration from poor PO intake -mild elevation of PTHrP; however, workup looking for cancer has been uneventful with CT scan of the abdomen and pelvis as well as CT of the chest. - RECEIVED Zometa as an OP before -OP appointment with Senior Software Project Manager -Calcium normalized -advised plenty of fluid orally as an OP CAD - stable, no reports of chest pain - continue ASA, Plavix, beta flor, and statin HTN - BP controlled, continue metoprolol and amlodipine COPD - no signs of acute exacerbation - continue home inhalers DM - recently taken off insulin and oral agents due to hypoglycemia - hgb a1c 7.6 06/2015 - glucose on labs today 195 - will utilize SSI while hospitalized DVT PROPHYLAXIS - SQ heparin CODE STATUS - Patient is a full code as per my discussion with her. DISPO Discharge home today Total time spent on discharge = 35 minutes This includes examination of the patient, discharge planning, medication reconciliation, and communication with other providers. Discharge Instructions Date of Service Sep 22, 2016. Admission Reason for Admission: Hypercalcemia,Demetrio Discharge Discharge Diagnosis / Problem: Hypercalcemia-normalized,Acute Renal failure- improved Discharge Goals Goal(s): Prevent Disease Progression Activity Recommendations Activity Limitations: resume your previous activity . Instructions / Follow-Up Instructions / Follow-Up Dr Baumann on 09/29/16.Check BMP Current Hospital Diet Patient's current hospital diet: AHA Diet (Heart Healthy), Renal Diet, Diabetes Type 2 Diet Discharge Diet Recommended Diet: Diabetes Type 2 Diet, Renal Diet Fluid Restriction: None (Drink More fluid) Pending Studies Studies pending at discharge: no Medical Emergencies . Who to Call and When: Medical Emergencies: If at any time you feel your situation is an emergency, please call 911 immediately. . Non-Emergent Contact Non-Emergency issues call your: Primary Care Provider . Past History Medical & Surgical History: (1) Hypercalcemia (2) CAD (coronary artery disease) (3) PVD (peripheral vascular disease) (4) GERD (gastroesophageal reflux disease) (5) DM type 2 (diabetes mellitus, type 2) (6) Ischemic cardiomyopathy (7) Hx of appendectomy (8) History of hysterectomy (9) S/P carotid endarterectomy (10) H/O aorto-femoral bypass (11) S/P femoral-popliteal bypass surgery . "Provider Documentation" section prepared by Danyell Newman. . VTE Core Measure Inpt VTE Proph given/why not?: Unfractionated heparin SQ <Electronically signed by Danyell Newman M.D.> Additional Copies To Dong Baumann M.D.(VERNELL)
== END 2016-09-22 13:30 | disposition home or self-care (01) | DRG 683 ==
LOC: C.4E 10:50
PROVIDERS: ADMIT Hospitalist; ATTEND Internal Medicine
DX: N17.9 Acute kidney failure, unspecified (principal); Z68.1 Body mass index [BMI] 19.9 or less, adult; E87.0 Hyperosmolality and hypernatremia; E83.52 Hypercalcemia; E87.6 Hypokalemia; E86.0 Dehydration; R63.4 Abnormal weight loss; I12.9 Hypertensive chronic kidney disease with stage 1 through stage 4 chronic kidney disease, or unspecified chronic kidney disease; N18.4 Chronic kidney disease, stage 4 (severe); J43.9 Emphysema, unspecified; E11.9 Type 2 diabetes mellitus without complications; E78.5 Hyperlipidemia, unspecified; K21.9 Gastro-esophageal reflux disease without esophagitis; I25.10 Atherosclerotic heart disease of native coronary artery without angina pectoris; I25.5 Ischemic cardiomyopathy; I73.9 Peripheral vascular disease, unspecified; Z87.891 Personal history of nicotine dependence; Z79.02 Long term (current) use of antithrombotics/antiplatelets; Z79.51 Long term (current) use of inhaled steroids; Z79.899 Other long term (current) drug therapy

== ENCOUNTER → 2016-11-10 | Outpatient (CLI) | payer OTHER ==
[~2016-11-10] MED LIST changes: +IPRA1AER2 INH; +IPRASOL4 INH; +NATE60TA PO; +NYST1OIN9 TOP; +PRED20TA PO
[2016-11-10 12:44] LABS: HEMATOCRIT 30.4 % (37-47)
[2016-11-10 13:16] LABS: ESTIMATED AVERAGE GLUCOSE 197 mg/dl; HA1C FLAG Normal (Normal)
[2016-11-10 13:34] LABS: ALT/SGPT 33 U/L (12-78); BLOOD UREA NITROGEN 42 mg/dl (7-18); CARBON DIOXIDE 26 mmol/L (21-32); CHLORIDE 107 mmol/L (98-107); GLUCOSE 248 mg/dl (70-99); POTASSIUM 4.4 mmol/L (3.5-5.1); SODIUM 141 mmol/L (136-145)
[2016-11-10 13:37] LABS: ALKALINE PHOSPHATASE 91 U/L (45-117); AST/SGOT 13 U/L (15-37)
--- NOTE | 2016-11-16 09:39 | CODING QUERY MEDICAL NECESSITY ---
CQSUPPORTING DIAGNOSIS NEEDED A supporting diagnosis is required for the test/procedure performed on this patient in order for us to be reimbursed by the patient's insurance. Please provide a supporting diagnosis for the following test/procedure listed below next to the test name along with your signature. *If there is no additional diagnosis for this patient that would support the following test/procedure please document that below next to the test/procedure. Test(s)/Procedure(s) that require a supporting diagnosis: VANCE 11/10/16 GLYCATED HEMOGLOBIN TEST Provider Signature: Date: Thank you Mervat Villarreal Health Information Management Once completed, please kindly fax back to [phone] For questions please call [phone]
== END | disposition home or self-care (01) ==
LOC: C.LAB1850 10:09
PROVIDERS: ATTEND Internal Medicine Endocrinology, Diabetes & Metabolism
DX: E83.52 Hypercalcemia (principal); E11.9 Type 2 diabetes mellitus without complications

== ENCOUNTER → 2016-12-20 | Outpatient (CLI) | payer OTHER ==
[~2016-12-20] MED LIST changes: -IPRA1AER2 INH; -IPRASOL4 INH; -METO100T44 PO; +METO1TAB69 PO; -NATE60TA PO; -NYST1OIN9 TOP; -PRED20TA PO
--- NOTE | 2016-12-20 13:28 | DIAGNOSTIC IMAGING REPORT ---
(CHEST) THORAX WITHOUT CT DOSE: 194.43 mGy.cm HISTORY: Elevated calcium HYPERCALCEMIA TECHNIQUE: Multiaxial CT images of the chest were performed without contrast. COMPARISON: 08/15/2016 FINDINGS: Moderate emphysematous change. Minimal dependent basilar atelectasis. No focal infiltrative process. Atherosclerotic change of the thoracic aorta stable from the prior study. No significant mediastinal or hilar adenopathy. Calcification of the coronary arterial vasculature. No significant pericardial effusion currently. IMPRESSION: Mild emphysematous change. No acute process. No change from the prior study. The above report was generated using voice recognition software. It may contain grammatical, syntax or spelling errors. Electronically signed by: Julio Cesar Valdivia M.D. 12/20/2016 1:26 PM Dictated Date/Time: 12/20/2016 1:22 PM
[2016-12-20 13:50] LABS: BLOOD UREA NITROGEN 34 mg/dl (7-18); BUN/CREATININE RATIO 15.6 (10-20); CALCIUM 9.4 mg/dl (8.5-10.1); CARBON DIOXIDE 25 mmol/L (21-32); CHLORIDE 109 mmol/L (98-107); GLUCOSE 140 mg/dl (70-99); POTASSIUM 4.3 mmol/L (3.5-5.1); SODIUM 141 mmol/L (136-145)
== END | disposition home or self-care (01) ==
LOC: C.CTS 12:50
PROVIDERS: ATTEND Internal Medicine Endocrinology, Diabetes & Metabolism
DX: E83.52 Hypercalcemia (principal)

== ENCOUNTER 2017-04-01 11:40 | Emergency (ER) | payer OTHER ==
[~2017-04-01] VITALS: Ht 152.4 cm; Wt 42.0 kg
[~2017-04-01 11:40] MED LIST changes: +METO100T44 PO; -METO1TAB69 PO
[2017-04-01 11:52] VITALS: Ht 152.4 cm; Wt 42.0 kg
[2017-04-01] MEDS ORDERED: ACETAMINOPHEN 500 MG TAB PO STA (12:03)
[2017-04-01 12:05] VITALS: O2SAT 95
[2017-04-01 12:35] LABS: BASO % 0.2 %; BASO ABS # 0.02 K/uL (0-0.2); COMPLETE YES; HEMATOCRIT 31.2 % (37-47); IG% 0.2 %; LYMPH % 10.1 %; LYMPH ABS # 1.26 K/uL (1.2-3.4); MEAN CELL VOLUME 95.7 fL (80-100); MEAN CORPUSCULAR HGB CONC 32.4 g/dl (32-36); MEAN PLATELET VOLUME 9.3 fL (7.4-10.4); MONO % 4.7 %; NEUT % 82.8 %; PLATELET COUNT 189 K/uL (130-400); RED BLOOD COUNT 3.26 M/uL (4.2-5.4)
[2017-04-01] MEDS ORDERED: NATE60TA PO (12:46)
[2017-04-01] MEDS ORDERED: NYST1OIN9 TOP (12:46)
[2017-04-01] MEDS ORDERED: IPRA1AER2 INH (12:46)
[2017-04-01] MEDS ORDERED: IPRASOL4 INH (12:46)
[2017-04-01 12:53] LABS: ALT/SGPT 33 U/L (12-78); AST/SGOT 17 U/L (15-37); BLOOD UREA NITROGEN 25 mg/dl (7-18); BUN/CREATININE RATIO 13.7 (10-20); CARBON DIOXIDE 22 mmol/L (21-32); CHLORIDE 112 mmol/L (98-107); CREATININE 1.81 mg/dl (0.60-1.20); GLUCOSE 112 mg/dl (70-99); POTASSIUM 4.3 mmol/L (3.5-5.1); SODIUM 141 mmol/L (136-145)
[2017-04-01 12:57] LABS: ALB/GLOB RATIO 0.8 (0.9-2); ALKALINE PHOSPHATASE 170 U/L (45-117)
--- NOTE | 2017-04-01 13:05 | EMERGENCY ROOM VISIT NOTE ---
History Report prepared by Romero: Gabby Paredes Under the Supervision of: Dr. Bladimir Nathan M.D. First contact with patient: 11:57 Chief Complaint: RASH Stated Complaint: RESPIRATORY History of Present Illness The patient is a 77 year old female who presents to the Emergency Room with complaints of a worsening rash for the past 3 days. The patient has a rash with redness and swelling to her hands bilaterally, right greater than left. She also reports some rash on her feet with pain as well. She rates her pain as a 9/ 10 in severity. She describes her pain as "stinging." The patient was brought to the ED by ambulance. [employer]GER she has some shortness of breath with exertion, which she states is chronic and unchanged. She denies chest pain and leg swelling. Source of History: patient Onset: 3 days ago Position: other (global) Symptom Intensity: 9/10 Quality: other (stinging rash) Timing: worsening Associated Symptoms: + SOB (chronic/unchanged), No chest pain Review of Systems All systems have been listed, reviewed, and are negative other than those previously mentioned. Please see Additional Medical History Sheet. Past Medical & Surgical Medical Problems: (1) CAD (coronary artery disease) (2) CKD (chronic kidney disease), stage IV (3) COPD, severe (4) DM type 2 (diabetes mellitus, type 2) (5) Dyslipidemia (6) Femoral artery aneurysm, right (7) GERD (gastroesophageal reflux disease) (8) Hypercalcemia (9) Ischemic cardiomyopathy (10) PVD (peripheral vascular disease) Surgical Problems: (1) H/O aorto-femoral bypass (2) History of hysterectomy (3) Hx of appendectomy (4) Hx of cataract surgery (5) S/P carotid endarterectomy (6) S/P femoral-popliteal bypass surgery Family History Cardiac disorder FATHER Social History Smoking Status: Former Smoker Smokeless Tobacco Use: No Alcohol Use: none Housing Status: lives alone Current/Historical Medications Scheduled Amlodipine Besylate (Amlodipine Besylate), 10 MG PO QAM Atorvastatin (Lipitor), 80 MG PO DAILY Budesonide/Formoterol Fumarate (Symbicort 160/4.5 Inhaler), 2 PUFFS INH BID Clopidogrel (Plavix), 75 MG PO DAILY Fish Oil (Laurel-3), 1 CAP PO DAILY Ipratropium-Albuterol (Combivent Respimat), 1 PUFFS INH QID Ipratropium-Albuterol (Duoneb), 1 TREATMENT INH QID Metoprolol Succ (Toprol Xl) (Toprol-Xl ), 100 MG PO DAILY Nateglinide (Starlix), 60 MG PO TID Nitroglycerin (Nitrostat), 0.4 MG UT PRN Nystatin-Triamcinolone (Nystatin/Triamcinolon... 096896-8.1 Unit/gm-%), 1 APPLN TOP TID Pantoprazole Sodium (Protonix), 20 MG PO DAILY Prednisone (Prednisone), 20 MG PO BID Terazosin Hcl (Hytrin), 2 MG PO DAILY Scheduled PRN Acetaminophen Tab (Tylenol), 650 MG PO Q4 PRN for Headache or Pain Allergies Coded Allergies: Codeine (Verified Allergy, Mild, 06/09/16) ABD DISTRESS Amoxicillin (Verified Allergy, Unknown, unknown, 08/14/16) Aspirin (Verified Allergy, Unknown, UNKNOWN, 06/09/16) PER HER DOCTOR, SHE IS NOT SUPPOSE TO TAKE IT BECAUSE OF HER KIDNEYS Isosorbide (Verified Allergy, Unknown, unknown, 08/14/16) Physical Exam Vital Signs Date Time Temp Pulse Resp B/P (MAP) Pulse Ox O2 Delivery O2 Flow Rate FiO2 04/01/17 13:59 80 20 112/54 95 Room Air 04/01/17 12:05 95 Room Air 04/01/17 12:05 86 04/01/17 11:52 86 20 123/51 95 Room Air Physical Exam GENERAL: Patient awake, alert, oriented x 3. Patient follows commands. Patient does not appear toxic. Patient is adequately hydrated and well- nourished. SKIN: Raised erythematous lesions on the dorsum of both ands and on her right thumb, she also has some on her arms. She has one on her left foot. On the bottom of her left foot she has multiple scaly lesions. Right lower back has multiple lesions. One lesion around her umbilicus. No erythema, pallor, or cyanosis. HEENT: Normal head, pupils equal, reactive to light and accommodation. LUNGS: Patient is tachypneic. Clear to auscultation. No wheezes, no rales, no rhonchi. HEART: No murmurs. No gallops. No rubs ABDOMEN: Soft, nontender. Erythema around her umbilicus, midline abdominal scar that is well-healed. EXTREMITIES: No signs of trauma. No pedal or pretibial edema. No calf or thigh tenderness. Skin changes as noted above. NEUROLOGIC: Cranial nerves II-XII within normal limits. No gross motor sensory function deficits. Medical Decision & Procedures ER Provider Diagnostic Interpretation: Radiology results as stated below per my review and radiologist interpretation: CHEST 2 VIEWS ROUTINE HISTORY: Short of breath. COMPARISON: Chest 08/14/2016. FINDINGS: Left carotid stent is again noted. The lungs are hyperexpanded with apical predominant emphysematous changes. No pneumothorax. No pleural effusions. The heart is normal in size. No new focal lung consolidations to suggest pneumonia. No evidence for pulmonary edema. Mild anterior wedge-shaped compression deformity within the mid thoracic spine remains unchanged. IMPRESSION: No significant change compared to the prior study. No acute process. Emphysema. Electronically signed by: Chaitanya Ruvalcaba M.D. 04/01/2017 1:06 PM Dictated Date/Time: 04/01/2017 1:04 PM Laboratory Results 04/01/17 12:21 Red Blood Count 3.26, Mean Corpuscular Volume 95.7, Mean Corpuscular Hemoglobin 31.0, Mean Corpuscular Hemoglobin Concent 32.4, Mean Platelet Volume 9.3, Neutrophils (%) (Auto) 82.8, Lymphocytes (%) (Auto) 10.1, Monocytes (%) (Auto) 4.7, Eosinophils (%) (Auto) 2.0, Basophils (%) (Auto) 0.2, Neutrophils # (Auto) 10.36, Lymphocytes # (Auto) 1.26, Monocytes # (Auto) 0.59, Eosinophils # (Auto) 0.25, Basophils # (Auto) 0.02 04/01/17 12:21 Test 04/01/17 12:21 White Blood Count 12.50 K/uL (4.8-10.8) Red Blood Count 3.26 M/uL (4.2-5.4) Hemoglobin 10.1 g/dL (12.0-16.0) Hematocrit 31.2 % (37-47) Mean Corpuscular Volume 95.7 fL (80-100) Mean Corpuscular Hemoglobin 31.0 pg (25-34) Mean Corpuscular Hemoglobin Concent 32.4 g/dl (32-36) Platelet Count 189 K/uL (130-400) Mean Platelet Volume 9.3 fL (7.4-10.4) Neutrophils (%) (Auto) 82.8 % Lymphocytes (%) (Auto) 10.1 % Monocytes (%) (Auto) 4.7 % Eosinophils (%) (Auto) 2.0 % Basophils (%) (Auto) 0.2 % Neutrophils # (Auto) 10.36 K/uL (1.4-6.5) Lymphocytes # (Auto) 1.26 K/uL (1.2-3.4) Monocytes # (Auto) 0.59 K/uL (0.11-0.59) Eosinophils # (Auto) 0.25 K/uL (0-0.5) Basophils # (Auto) 0.02 K/uL (0-0.2) RDW Standard Deviation 48.7 fL (36.4-46.3) RDW Coefficient of Variation 13.9 % (11.5-14.5) Immature Granulocyte % (Auto) 0.2 % Immature Granulocyte # (Auto) 0.02 K/uL (0.00-0.02) Erythrocyte Sedimentation Rate 23 mm/hr (0-21) Anion Gap 7.0 mmol/L (3-11) Est Creatinine Clear Calc Drug Dose 16.7 ml/min Estimated GFR () 30.3 Estimated GFR (Non- 26.1 BUN/Creatinine Ratio 13.7 (10-20) Lactic Acid Level 1.1 mmol/L (0.4-2.0) Calcium Level 9.0 mg/dl (8.5-10.1) Total Bilirubin 0.5 mg/dl (0.2-1) Aspartate Amino Transf (AST/SGOT) 17 U/L (15-37) Alanine Aminotransferase (ALT/SGPT) 33 U/L (12-78) Alkaline Phosphatase 170 U/L (45-117) Troponin I < 0.015 ng/ml (0-0.045) Total Protein 6.3 gm/dl (6.4-8.2) Albumin 2.7 gm/dl (3.4-5.0) Globulin 3.6 gm/dl (2.5-4.0) Albumin/Globulin Ratio 0.8 (0.9-2) Laboratory results as stated above per my review. Medications Administered Medications (Trade) Dose Ordered Sig/Jennifer Route Start Time Stop Time Status Last Admin Dose Admin Acetaminophen (Tylenol Tab) 1,000 mg NOW STAT PO 04/01/17 12:03 04/01/17 12:05 DC 04/01/17 12:27 1,000 MG Prednisone (PredniSONE TAB) 60 mg NOW STAT PO 04/01/17 14:10 04/01/17 14:12 DC 04/01/17 14:40 60 MG ECG Indication: SOB/dyspnea Rate (beats per minute): 87 Rhythm: normal sinus Findings: no acute ischemic change, no ectopy ED Course 1157: Past medical records reviewed. The patient was evaluated in room C6. A complete history and physical examination was performed. 1203: Tylenol 1000 mg PO 1406: I reassessed the patient at this time. She is feeling better and resting comfortably. I discussed the results and treatment plan with the patient. I answered all pertaining questions that she had. She expressed understanding and verbalized agreement. The patient will be discharged home. 1410: Prednisone 60 mg PO Medical Decision Nurses notes reviewed. Medical history sheet reviewed. Differential diagnosis includes but is not limited to: eczema, psoriasis, skin syndrome, cellulitis. The patient has multiple dry scaly red patches over her arms and legs and some on her abdomen. These do not appear to be infected. Her white count is minimally elevated as is her sedimentation rate. The patient has chronic COPD without a significant change today. The patient will be placed on prednisone. The patient is diabetic. She will check her blood sugar more frequently at home. The patient will follow-up with dermatology in 3 days.. Medication Reconcilliation Current Medication List: was personally reviewed by me Blood Pressure Screening Patient's blood pressure: Normal blood pressure Impression Primary Impression: Eczematous dermatitis Additional Impression: COPD (chronic obstructive pulmonary disease) Scribe Attestation The scribe's documentation has been prepared under my direction and personally reviewed by me in its entirety. I confirm that the note above accurately reflects all work, treatment, procedures, and medical decision making performed by me. Departure Information Dispostion Home / Self-Care Prescriptions Prednisone (Prednisone) 20 Mg Tab 20 MG PO BID for 5 Days, #10 TAB Prov: Bladimir Nathan M.D. 04/01/17 Referrals Dong Baumann M.D.([facility]) (PCP) Patient Instructions My [facility] Additional Instructions On prednisone twice a day for the next 5 days. Follow-up with dermatology as scheduled. Return here sooner if your rash is getting much worse. Problem Qualifiers
[2017-04-01] MEDS ORDERED: PRED20TA PO (14:13)
[2017-04-01 15:51] VITALS: BP 117/75; PULSE 82; O2SAT 96
== END 2017-04-01 15:53 | disposition home or self-care (01) ==
LOC: EDBD 11:40 → C.EDC 11:42
DX: L30.9 Dermatitis, unspecified (principal); J44.9 Chronic obstructive pulmonary disease, unspecified; E11.9 Type 2 diabetes mellitus without complications; N18.4 Chronic kidney disease, stage 4 (severe); E78.5 Hyperlipidemia, unspecified; I25.10 Atherosclerotic heart disease of native coronary artery without angina pectoris; K21.9 Gastro-esophageal reflux disease without esophagitis; I73.9 Peripheral vascular disease, unspecified; Z98.49 Cataract extraction status, unspecified eye; Z90.710 Acquired absence of both cervix and uterus; Z98.890 Other specified postprocedural states; Z87.891 Personal history of nicotine dependence; Z79.899 Other long term (current) drug therapy; Z88.1 Allergy status to other antibiotic agents; Z88.5 Allergy status to narcotic agent; Z88.6 Allergy status to analgesic agent; Z88.8 Allergy status to other drugs, medicaments and biological substances; Z82.49 Family history of ischemic heart disease and other diseases of the circulatory system

== ENCOUNTER 2017-09-26 19:41 | Inpatient (IN) | payer OTHER ==
[~2017-09-26] VITALS: Ht 157.5 cm; Wt 41.4 kg
[~2017-09-26 19:41] MED LIST changes: +ACET-1693 PO; -ACET325T96 PO; -CMBIN INH; +IPRA1AER2 INH; -IPRASOL34 INH; +IPRASOL4 NEB; +NATE60TA PO; +NYST1OIN9 TOP
[2017-09-26] MEDS ORDERED: SODIUM CHLORIDE 0.9% 1000ML 500 ML IV STA (19:54)
[2017-09-26] MEDS ORDERED: SODIUM CHLORIDE 0.9% 1000ML 1,000 ML IV STA ×2 (19:54→21:59)
[2017-09-26 20:40] LABS: BASO % 0.5 %; BASO ABS # 0.04 K/uL (0-0.2); EOS % 3.6 %; HEMATOCRIT 30.9 % (37-47); HEMOGLOBIN 10.2 g/dL (12.0-16.0); IG# 0.01 K/uL (0.00-0.02); LYMPH % 16.3 %; LYMPH ABS # 1.36 K/uL (1.2-3.4); MEAN CELL VOLUME 98.7 fL (80-100); MEAN CORPUSCULAR HEMOGLOBIN 32.6 pg (25-34); MEAN PLATELET VOLUME 9.9 fL (7.4-10.4); MONO % 5.4 %; MONO ABS # 0.45 K/uL (0.11-0.59); NEUT % 74.1 %; NEUT ABS # 6.18 K/uL (1.4-6.5); PLATELET COUNT 140 K/uL (130-400); RED CELL DISTRIBUTION WIDTH CV 13.6 % (11.5-14.5); RED CELL DISTRIBUTION WIDTH SD 48.9 fL (36.4-46.3); WHITE BLOOD COUNT 8.34 K/uL (4.8-10.8)
[2017-09-26 21:07] LABS: ALBUMIN 3.1 gm/dl (3.4-5.0); ALKALINE PHOSPHATASE 79 U/L (45-117); ALT/SGPT 31 U/L (12-78); AST/SGOT 17 U/L (15-37); BLOOD UREA NITROGEN 37 mg/dl (7-18); CALCIUM 12.1 mg/dl (8.5-10.1); CARBON DIOXIDE 31 mmol/L (21-32); CREATININE 2.74 mg/dl (0.60-1.20); GLUCOSE 172 mg/dl (70-99); LIPASE 91 U/L (73-393); SODIUM 141 mmol/L (136-145); TOTAL PROTEIN 5.9 gm/dl (6.4-8.2)
[2017-09-26] MEDS ORDERED: PLV75 PO (21:32)
[2017-09-26] MEDS ORDERED: PANT20TA2 PO (21:32)
[2017-09-26] MEDS ORDERED: NATE1TAB PO (21:32)
[2017-09-26] MEDS ORDERED: NRV/5 PO (21:32)
[2017-09-26] MEDS ORDERED: MOME200A INH (21:32)
[2017-09-26] MEDS ORDERED: TPRSR/100 PO (21:32)
[2017-09-26] MEDS ORDERED: HYT/2 PO (21:32)
[2017-09-26] MEDS ORDERED: ACET-749 PO (21:43)
[2017-09-26] MEDS ORDERED: GARL400T2 PO (21:43)
[2017-09-26] MEDS ORDERED: CHOL2000 PO (21:43)
[2017-09-26] MEDS ORDERED: OXGN (21:52)
[2017-09-26] MEDS ORDERED: INSULIN ASPART 100 UNITS/ML 3 ML PEN SC ONE (21:57)
[2017-09-26] MEDS ORDERED: GLUCOSE 40% GEL 15 GM TUBE PO PRN (22:00)
[2017-09-26] MEDS ORDERED: DEXTROSE 50% 50 ML SYR IV PRN (22:00)
[2017-09-26] MEDS ORDERED: NITROGLYCERIN 0.4 MG SL PER TAB CHARGE UT PRN (22:00)
[2017-09-26] MEDS ORDERED: GLUCAGON FOR INJ 1 MG VIAL SQ PRN (22:00)
[2017-09-26] MEDS ORDERED: GLUCOSE 10 TABS/TUBE PO PRN (22:00)
[2017-09-26 22:12] LABS: PHOSPHORUS 2.8 mg/dl (2.5-4.9)
[2017-09-26] MEDS ORDERED: PROCHLORPERAZINE INJ 5 MG in SYRINGE 4 ML IV PRN (22:15)
[2017-09-26] MEDS ORDERED: ACETAMINOPHEN 325 MG TAB PO PRN (22:15)
[2017-09-26] MEDS ORDERED: ALBUT/IPRATROP 3MG/0.5MG NEB 3 ML VIAL INH ONE (22:15)
[2017-09-26] MEDS ORDERED: TRAMADOL HCL 50 MG TAB PO PRN (22:15)
[2017-09-26] MEDS ORDERED: HYDROmorphone INJ 0.5 MG/0.5 ML SYR IV PRN (22:15)
--- NOTE | 2017-09-26 22:30 | DIAGNOSTIC IMAGING REPORT ---
CHEST ONE VIEW PORTABLE HISTORY: renal failure COMPARISON: Chest 04/01/2017. FINDINGS: The lungs are hyperexpanded with mild apical predominant emphysematous changes. No focal lung consolidations to suggest pneumonia. The heart is top normal in size. No pleural effusions. No pneumothorax. Left common carotid artery stent is again noted. IMPRESSION: No significant change compared to the prior study. No acute process. Emphysema Electronically signed by: Chaitanya Ruvalcaba M.D. 09/26/2017 10:29 PM Dictated Date/Time: 09/26/2017 10:28 PM
--- NOTE | 2017-09-26 22:45 | EMERGENCY ROOM VISIT NOTE ---
History Report prepared by Romero: Aliya Joseph Under the Supervision of: Dr. Edu Johnston M.D. First contact with patient: 19:42 Chief Complaint: OTHER COMPLAINT Stated Complaint: MD REFERRAL FOR ABNORMAL LABS History of Present Illness The patient is a 77 year old female who presents to the Emergency Room with a referral due to abnormal labs today. It appears that the patient has hypercalcemia. The patient reports that she has had kidney problems and that she sees Dr. Ferrell who wanted her to have blood work done. She denies ever having dialysis. The patient reports being fatigued but reports that this is baseline for her. She also reports trouble breathing but states that she has a nebulizer at home and that this is chronic for her. The patient also reports having diarrhea. She states that she does not believe that she is on blood thinners. Pt denies LOC, headache, fevers, chills, diaphoresis, visual changes , neck pain, chest pain, nausea, vomiting, abdominal pain, back pain, melena, hematochezia, urinary symptoms, numbness, weakness, lymphadenopathy, rash, or other complaints. The patient reports a history of diabetes. Source of History: patient Onset: today Position: other (generalized ) Quality: other (abnormal labs ) Associated Symptoms: + SOB, + diarrhea, + fatigue, No fevers Review of Systems See HPI for pertinent positives and negatives. A total of ten systems were reviewed and were otherwise negative. Past Medical & Surgical Medical Problems: (1) CAD (coronary artery disease) (2) CKD (chronic kidney disease), stage IV (3) COPD, severe (4) DM type 2 (diabetes mellitus, type 2) (5) Dyslipidemia (6) Femoral artery aneurysm, right (7) GERD (gastroesophageal reflux disease) (8) Hypercalcemia (9) Hypercalcemia (10) Ischemic cardiomyopathy (11) PVD (peripheral vascular disease) Surgical Problems: (1) H/O aorto-femoral bypass (2) History of hysterectomy (3) Hx of appendectomy (4) Hx of cataract surgery (5) S/P carotid endarterectomy (6) S/P femoral-popliteal bypass surgery Family History Cardiac disorder FATHER Social History Smoking Status: Current Every Day Smoker Alcohol Use: none Housing Status: lives alone Current/Historical Medications Scheduled Amlodipine Besylate (Amlodipine Besylate), 5 MG PO DAILY Atorvastatin (Lipitor), 80 MG PO DAILY Cholecalciferol (Vitamin D3), 2,000 INTER.UNIT PO DAILY Clopidogrel Bisulfate (Clopidogrel), 75 MG PO DAILY Fish Oil (Basye-3), 1 CAP PO BID Garlic (Garlic), 400 MG PO DAILY Home O2 Therapy (Oxygen), 2 LITERS NA UD Ipratropium-Albuterol (Combivent Respimat), 1 PUFF INH QID Metoprolol Succinate (Metoprolol Succinate ER), 100 MG PO DAILY Mometasone Furoate-Formoterol (Dulera 200/5 Mcg), 2 PUFFS INH BID Nateglinide (Starlix), 60 MG PO AC Pantoprazole Sodium (Protonix), 20 MG PO QAM Terazosin Hcl (Hytrin), 2 MG PO DAILY Scheduled PRN Acetaminophen Tab (Tylenol), 650 MG PO Q4H PRN for Headache or Pain Acetaminophen/Codeine (Tylenol W/Codeine #3), 1 TAB PO BID PRN for Pain Ipratropium-Albuterol (Duoneb), 1 VIAL NEB QID PRN for Shortness of Breath Nitroglycerin (Nitrostat), 0.4 MG UT UD PRN for Chest Pain Allergies Coded Allergies: Codeine (Verified Allergy, Mild, 06/09/16) ABD DISTRESS Amoxicillin (Verified Allergy, Unknown, unknown, 08/14/16) Aspirin (Verified Allergy, Unknown, UNKNOWN, 06/09/16) PER HER DOCTOR, SHE IS NOT SUPPOSE TO TAKE IT BECAUSE OF HER KIDNEYS Bacitracin (Verified Allergy, Unknown, Rash, 09/26/17) Isosorbide Nitrate (Verified Allergy, Unknown, unknown, 08/14/16) Neomycin (Verified Allergy, Unknown, Rash, 09/26/17) Polymyxin B (Verified Allergy, Unknown, Rash, 09/26/17) Physical Exam Vital Signs Date Time Temp Pulse Resp B/P (MAP) Pulse Ox O2 Delivery O2 Flow Rate FiO2 09/26/17 21:40 92 16 138/61 98 Nasal Cannula 2.0 09/26/17 19:50 92 09/26/17 19:45 36.7 93 24 140/68 99 Nasal Cannula 2.0 Physical Exam GENERAL: Awake, alert, well-appearing, in no distress HENT: Normocephalic, atraumatic. Oropharynx unremarkable. EYES: Normal conjunctiva. Sclera non-icteric. NECK: Supple. No nuchal rigidity. FROM. No masses. RESPIRATORY: Clear to auscultation. No wheezes. No rales. Normal respiratory effort. CARDIAC: Normal rate. Normal rhythm. No murmurs. No rubs. Extremities warm and well perfused. Pulses equal. No JVD. GI: Soft, non-distended. No tenderness to palpation. No rebound or guarding. No masses. RECTAL: Deferred. MUSCULOSKELETAL: Atraumatic. Chest examination reveals no tenderness. The back is symmetrical on inspection without obvious abnormality. There is no CVA tenderness to palpation. No joint edema. LOWER EXTREMITIES: Calves are equal size bilaterally and non-tender. No edema. No discoloration. NEURO: Normal sensorium. No sensory or motor deficits noted. SKIN: No rash or jaundice noted. Medical Decision & Procedures Laboratory Results 09/26/17 20:20 Red Blood Count 3.13, Mean Corpuscular Volume 98.7, Mean Corpuscular Hemoglobin 32.6, Mean Corpuscular Hemoglobin Concent 33.0, Mean Platelet Volume 9.9, Neutrophils (%) (Auto) 74.1, Lymphocytes (%) (Auto) 16.3, Monocytes (%) (Auto) 5.4, Eosinophils (%) (Auto) 3.6, Basophils (%) (Auto) 0.5, Neutrophils # (Auto) 6.18, Lymphocytes # (Auto) 1.36, Monocytes # (Auto) 0.45, Eosinophils # (Auto) 0.30, Basophils # (Auto) 0.04 Test 09/26/17 20:20 09/26/17 22:05 White Blood Count 8.34 K/uL (4.8-10.8) Red Blood Count 3.13 M/uL (4.2-5.4) Hemoglobin 10.2 g/dL (12.0-16.0) Hematocrit 30.9 % (37-47) Mean Corpuscular Volume 98.7 fL (80-100) Mean Corpuscular Hemoglobin 32.6 pg (25-34) Mean Corpuscular Hemoglobin Concent 33.0 g/dl (32-36) Platelet Count 140 K/uL (130-400) Mean Platelet Volume 9.9 fL (7.4-10.4) Neutrophils (%) (Auto) 74.1 % Lymphocytes (%) (Auto) 16.3 % Monocytes (%) (Auto) 5.4 % Eosinophils (%) (Auto) 3.6 % Basophils (%) (Auto) 0.5 % Neutrophils # (Auto) 6.18 K/uL (1.4-6.5) Lymphocytes # (Auto) 1.36 K/uL (1.2-3.4) Monocytes # (Auto) 0.45 K/uL (0.11-0.59) Eosinophils # (Auto) 0.30 K/uL (0-0.5) Basophils # (Auto) 0.04 K/uL (0-0.2) RDW Standard Deviation 48.9 fL (36.4-46.3) RDW Coefficient of Variation 13.6 % (11.5-14.5) Immature Granulocyte % (Auto) 0.1 % Immature Granulocyte # (Auto) 0.01 K/uL (0.00-0.02) Est Creatinine Clear Calc Drug Dose 10.7 ml/min Phosphorus Level 2.8 mg/dl (2.5-4.9) Magnesium Level 1.9 mg/dl (1.8-2.4) Total Bilirubin 0.4 mg/dl (0.2-1) Direct Bilirubin < 0.1 mg/dl (0-0.2) Aspartate Amino Transf (AST/SGOT) 17 U/L (15-37) Alanine Aminotransferase (ALT/SGPT) 31 U/L (12-78) Alkaline Phosphatase 79 U/L (45-117) Troponin I < 0.015 ng/ml (0-0.045) Total Protein 5.9 gm/dl (6.4-8.2) Albumin 3.1 gm/dl (3.4-5.0) Lipase 91 U/L (73-393) Laboratory results reviewed by me Medications Administered Medications (Trade) Dose Ordered Sig/Jennifer Route Start Time Stop Time Status Last Admin Dose Admin Sodium Chloride 1,000 ml @ 125 mls/hr Q8H STAT IV 09/26/17 19:54 09/26/17 22:01 DC 09/26/17 19:54 125 MLS/HR Sodium Chloride 500 ml @ 999 mls/hr Q31M STAT IV 09/26/17 19:54 09/26/17 22:01 DC 09/26/17 19:54 999 MLS/HR ED Course 1953: Ordered Sodium Chloride 500 ml @ 999 mls/hr IV, Sodium Chloride 1,000 ml @ 125 mls/hr IV. 2000: The patient was evaluated in room B9. A complete history and physical exam was performed. 2108: Upon reexamination, the patient was resting. I discussed the test results and treatment plan with her. [facility] The patient will be evaluated for further management. Medical Decision Prior records/ancillary studies reviewed and summarized above. Outpatient records were reviewed and revealed that she had a calcium of 13.2 and creatinine of 2.4. Nursing notes reviewed and agree them. The patient's history was concerning for fatigue and hypercalcemia. Differential diagnosis: Etiologies such as metabolic, infection, hypo/hyperglycemia, electrolyte abnormalities, cardiac sources, intracerebral event, toxicologic, neurologic, as well as others were entertained. Physical examination: As above. ER treatment provided: IV Lock Normal saline hydration On reassessment the patient felt better. Diagnostics interpretation by me: The labs revealed an unremarkable CBC. Chemistry panel revealed hypercalcemia. Creatinine was mildly elevated at 2.74 compared to prior. Imaging studies: Deferred Consultation: A consultation was placed with the hospitalist. The case was discussed and diagnostics were reviewed. The patient was evaluated in the ER for further treatment. Medication Reconcilliation Current Medication List: was personally reviewed by me Blood Pressure Screening Patient's blood pressure: Elevated blood pressure will be monitored by the hospitalist Consults Time Called: [phone] Consulting Physician: Dr. Parikh- [place] Returned Call: [phone] Discussed the patient's case. The patient will be evaluated for further treatment and disposition. Impression Primary Impression: Hypercalcemia Scribe Attestation The scribe's documentation has been prepared under my direction and personally reviewed by me in its entirety. I confirm that the note above accurately reflects all work, treatment, procedures, and medical decision making performed by me. Departure Information Dispostion Being Evaluated By Hospitalist Referrals Dong Baumann M.D. ([facility]) (PCP) Patient Instructions My [facility]
--- NOTE | 2017-09-26 22:56 | HISTORY & PHYSICAL EXAMINATION ---
DATE OF ADMISSION: 09/26/2017 PRIMARY CARE PHYSICIAN: Dr. Baumann CHIEF COMPLAINT: Abnormal blood work. HISTORY OF PRESENT ILLNESS: History obtained from patient and records. Medical history significant for chronic respiratory failure, COPD on home O2 at night, CAD, PVD sp surgery, hypertension, hyperlipidemia, past tobacco abuse, chronic anemia (baseline hemoglobin of 10), chronic renal insufficiency ( baseline creatinine in the 2), chronic anemia (baseline hemoglobin of 10), DM2 oral meds, hx recurrent hypercalcemia Recent confinement last year for DEMETRIO, recurrent hypercalcemia attributed to the poor p.o. intake. hx extensive workup for hypercalcemia as per records. She went for outpatient blood work today. Serum calcium noted to be 13.2 Appetite okay. Patient denies chest pain, unusual shortness of breath, abdominal symptoms. Patient sent to the Emergency Room. MEDICAL HISTORY: As above. SURGERIES: She has had vascular procedure, appendectomy, hysterectomy, eye surgery. FAMILY HISTORY: Family history of heart disease. 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 REVIEW OF SYSTEMS: As per HPI, all 10 systems reviewed, all others ROS negative. PHYSICAL EXAMINATION: VITAL SIGNS: Blood pressure was noted to be 138/61, pulse 90 RR 18 T 36.7 O2 sats 99 on 2 liters. GENERAL: Noted to be hyposthenic. Slightly anxious. SKIN: Pallor, warm. HEENT: Pale palpebral conjunctivae, no ptosis, dry buccal mucosa, nasal cannula in place. NECK: Supple, nontender. CHEST: Occasional wheeze. No tenderness HEART: Regular rate and rhythm, no murmur. ABDOMEN: Some distention, nontender . EXTREMITIES: No LE edema. No tenderness. No gross deformities. NEUROLOGIC: Coherent, No gross focality. LABORATORIES: Hemoglobin was noted to be 10, Sodium 141, potassium 4.1, chloride 106, BUN 37, creatinine 2.74, glucose was noted to be 172. Hemoglobin A1c 06/2017 was 6.4. Chest x-ray as per my interpretation COPD, no congestion. ASSESSMENT: 1. Recurrent hypercalcemia ARF possibly on CRI Possibly from poor p.o. intake vitamin D supplements may be contributory. 2. Hypertension, stable. 3. CAD as per records 4. hx peripheral vascular disease sp surgery 5. Chronic respiratory secondary to COPD on home O2, past tobacco abuse Pulmonary status at baseline 6. DM2 on oral meds, well controlled as of recent outpatient hemoglobin A1c 7. Malnutrition (low BMI) PLAN: GMF Baseline UA m Monitor serum creatinine, e calcium levels response to IVF hold home cholecalciferol for now; may be prudent to stop o home medication n discharge due to patient's propensity to develop recurrent hypercalcemia. Further management as per Nephrology. ISS BG goal 140-180. Nutrition consult RE low BMI DVT prophylaxis, Heparin Full code. MTDD
[2017-09-26 23:37] LABS: CALCIUM 11.4 mg/dl (8.5-10.1); CREATININE 2.52 mg/dl (0.60-1.20); POTASSIUM 3.9 mmol/L (3.5-5.1)
[2017-09-26 23:48] VITALS: BP 138/61; TEMP 36.7; BMI 16.7
[2017-09-27] VITALS (8 sets, daily range): BP systolic 132–153; BP diastolic 52–65; PULSE 71–87; TEMP 36.7; O2SAT 93–100; Ht 157.5 cm; Wt 41.4 kg
[2017-09-27] MEDS: SODIUM CHLORIDE 0.9% 1000ML 1,000 ML IV SCH ×3 (01:05→12:15)
[2017-09-27] MEDS: ALBUT/IPRATROP 3MG/0.5MG NEB 3 ML VIAL INH PRN ×2 (06:02→13:45)
[2017-09-27] MEDS: INSULIN ASPART 100 UNITS/ML 3 ML PEN SC SCH ×4 (06:30→21:06)
[2017-09-27 06:57] LABS: BASO % 0.4 %; BASO ABS # 0.03 K/uL (0-0.2); EOS % 4.6 %; EOS ABS # 0.33 K/uL (0-0.5); HEMATOCRIT 29.7 % (37-47); HEMOGLOBIN 9.8 g/dL (12.0-16.0); IG# 0.01 K/uL (0.00-0.02); LYMPH % 26.8 %; LYMPH ABS # 1.93 K/uL (1.2-3.4); MEAN CELL VOLUME 99.7 fL (80-100); MEAN CORPUSCULAR HEMOGLOBIN 32.9 pg (25-34); MEAN PLATELET VOLUME 9.7 fL (7.4-10.4); MONO % 6.7 %; MONO ABS # 0.48 K/uL (0.11-0.59); NEUT % 61.4 %; NEUT ABS # 4.42 K/uL (1.4-6.5); PLATELET COUNT 130 K/uL (130-400); RED CELL DISTRIBUTION WIDTH CV 13.4 % (11.5-14.5); RED CELL DISTRIBUTION WIDTH SD 48.7 fL (36.4-46.3)
[2017-09-27 07:20] LABS: CALCIUM 11.2 mg/dl (8.5-10.1); CREATININE 2.27 mg/dl (0.60-1.20); POTASSIUM 3.7 mmol/L (3.5-5.1)
[2017-09-27] MEDS: IPRATROPIUM BROMIDE/ALBUTEROL respimat INH INH SCH ×4 (08:04→21:10)
[2017-09-27] MEDS: METOPROLOL SUCC 50MG EXT REL TAB PO SCH (08:05)
[2017-09-27] MEDS: ATORVASTATIN 40 MG TAB PO SCH (08:06)
[2017-09-27] MEDS: CLOPIDOGREL BISULFATE 75 MG TAB PO SCH (08:06)
[2017-09-27] MEDS: PANTOprazole SOD 40 MG TAB PO SCH (08:06)
[2017-09-27] MEDS: AMLODIPINE BESYLATE 5 MG TAB PO SCH (08:07)
[2017-09-27] MEDS: HEPARIN SOD 5000 UNIT/0.5 ML CARP SQ SCH ×3 (08:18→21:09)
--- NOTE | 2017-09-27 10:56 | Clinical Documentation Query ---
CLINICAL DOCUMENTATION QUERY QUERY 1 OF 2 77 yo female admitted for hypercalcemia. GFR ranges from March 2017 to present are 26.1 to 15.8. In your clinical opinion is this patient being managed for: ( x ) Chronic kidney disease, stage 3 - 4 ( ) Not Agree ( ) Other explanation of clinical findings (Please Explain) ( ) Unable to determine (Please Define) ( ) Need to Discuss The medical record reflects the following clinical findings, treatment, and risk factors. Clinical Indicators: As above Treatment: Serial PRPs Risk Factors: Age, DEMETRIO, HTN QUERY 2 OF 2 Patient has a BMI of 16 and is described as suffering from "malnutrition" with poor PO intake. In your clinical opinion is this patient being managed for: ( x ) Severe protein-calorie malnutrition ( ) Not Agree ( ) Other explanation of clinical findings (Please Explain) ( ) Unable to determine (Please Define) ( ) Need to Discuss The medical record reflects the following clinical findings, treatment, and risk factors. Clinical Indicators: As above Treatment: Dietitian consult Risk Factors: COPD, chronic respiratory failure, poor PO intake, low BMI Please clarify and document your clinical opinion in the progress notes and discharge summary. Terms such as "probable", "suspected", "likely", "questionable", "possible", or "still to be ruled out" are acceptable. IF IN AGREEMENT, YOU MUST DOCUMENT ABOVE DIAGNOSTIC STATEMENT IN DAILY PROGRESS NOTES AND DISCHARGE SUMMARY. This document is not part of the patient's record. Thank You, Lizeth Gross RN [phone]
--- NOTE | 2017-09-27 13:06 | NEPHROLOGY CONSULTATION ---
DATE OF CONSULTATION: 09/27/2017 ATTENDING OF RECORD: Dr. Padron. REASON FOR CONSULTATION: Hypercalcemia. HISTORY OF PRESENT ILLNESS: This is a 77-year-old female who follows with me in outpatient clinic with last seen in June of this year, CKD stage IV with right kidney 9.6 cm and the left kidney 9 cm from renal ultrasound in 2010, who has CKD from diabetes with baseline creatinine in the low 2s. Patient does have recurrent hypercalcemia and DEMETRIO, drinking about 7 bottles of water a day. Did have several hospitalizations in the past for hypercalcemia with elevated PTHRP and had several doses of Zometa and calcium levels have stabilized, on oxygen while she sleeps though also with hypertension. Negative workup for myeloma in the past. Patient has been diabetic for over 30 years with retinopathy. Quit tobacco in 2002 and does have COPD and is on nebulizers. Has heart disease with an AR in the 80s and avoids NSAIDs. When I last saw her, her calcium levels had been in the normal range and we did start vitamin D 2000 units a day. Patient's calcium levels were elevated and found to be at 13.2 on September 26. Creatinine relatively stable in the low 2s, previously about June 23, calcium level was 9.1. PTH levels have always been appropriately low, PTHRP upper limit of normal at 27 last checked in June of last year. With the elevated calcium levels instructed the patient to come into the hospital. Patient feels good. CURRENT MEDICATIONS: 1. Norvasc 5 mg a day. 2. Lipitor 80 mg a day. 3. Plavix 75 mg a day. 4. Terazosin 2 mg daily. 5. Toprol-XL 100 mg a day. 6. Heparin 5000 units subQ q. 8. 7. Sliding scale insulin. PAST MEDICAL HISTORY: COPD on home oxygen, heart disease with history of AR in the past, diabetes, hypertension, history of hypercalcemia in the past, CKD stage IV, baseline creatinine in the low 2s, hyperlipidemia. PAST SURGICAL HISTORY: Hysterectomy, appendectomy, multiple eye surgeries. FAMILY HISTORY: Significant for heart disease. SOCIAL HISTORY: Past tobacco abuse, quit last year. No alcohol and no drugs. REVIEW OF SYSTEMS: Chronic shortness of breath on home oxygen. No nausea, vomiting, no diarrhea or constipation. No abdominal pain, no headaches, no blurry vision. No itching or rash. All other review of systems otherwise negative. PHYSICAL EXAMINATION: VITAL SIGNS: Temperature 36.7, pulse 86, respiratory rate 18, blood pressure 133/62, satting 98% on 2 liters. GENERAL: Awake, alert, oriented x3. EYES: No scleral icterus. ENT: Moist mucous membranes. NECK: Supple. PULMONARY: Clear to auscultation. CARDIAC: Regular rate and rhythm. ABDOMEN: Bowel sounds positive, soft, nontender. EXTREMITIES: No significant clubbing, cyanosis or edema. NEUROLOGIC: Nonfocal. DERMATOLOGIC: No rash or ulcers noted. LABORATORY DATA: White count 7.2, H&H 9.8 and 29.7, platelet count is 130. Sodium was 145, potassium 3.7, chloride is 114, bicarbonate is 27, BUN is 30, creatinine is 2.27 down from 2.74 and calcium level is 11.2, down from 12.1. PTH is appropriately low at 14.4. INR is 1. Chest x-ray showed no acute process or signs of emphysema. ASSESSMENT AND PLAN: Hypercalcemia. PTHRPs had an upper limit of normal, no signs of actual malignancy. In the past patient has received Zometa while in the hospital. Currently receiving IV fluids and calcium levels are improving. Will continue the IV fluids. Patient's vitamin D was started in June and calcium levels trended up with that, so will stop the vitamin D with calcium supplement. Continue the IV fluids, continue to look for causes of underlying malignancy with the mildly elevated PTHRP and recheck a PTHRP again during this hospitalization. Hold off on giving a dose of Zometa at this time, since patient is clinically improving with calcium levels improving with just fluids alone. I appreciate the consultation.
--- NOTE | 2017-09-27 18:04 | Progress Note ---
Medicine Progress Note Date & Time of Visit: Sep 27, 2017 at 18:04. Subjective Patient doing well, states she feels good, denies any difficulty walking in her room and not bumping into things or feeling unsteady. No overnight events noted. Tolerating PO without difficulty. Patient is hopeful to go home tomorrow. Objective Last 8 Hrs Date Time Temp Pulse Resp B/P (MAP) Pulse Ox O2 Delivery O2 Flow Rate FiO2 09/27/17 16:00 Room Air 09/27/17 15:22 36.7 78 19 133/52 (79) 97 Nasal Cannula 2.0 09/27/17 13:46 71 18 98 Nasal Cannula 2.0 09/27/17 11:50 96 Physical Exam: GENERAL: Patient is in no acute distress. HEENT: No acute trauma, normocephalic, mucous membranes moist, no nasal congestion, no scleral icterus. NECK: No stridor, trachea is midline. LUNGS: Clear to auscultation bilaterally, no wheeze, no rhonchi, breath sounds equal. HEART: Without murmurs gallops or rubs, regular rate and rhythm. ABDOMEN: Soft, nontender, bowel sounds positive EXTREMITIES: No cyanosis or edema, moving all 4 extremities without pain or difficulty NEUROLOGIC: Oriented x 3, no acute motor or sensory deficits, no focal weakness. SKIN: No rash, no jaundice, no diaphoresis. Laboratory Results: Last 24 Hours Test 09/26/17 20:20 09/26/17 23:00 09/27/17 00:56 09/27/17 06:33 White Blood Count 8.34 K/uL 7.20 K/uL Red Blood Count 3.13 M/uL 2.98 M/uL Hemoglobin 10.2 g/dL 9.8 g/dL Hematocrit 30.9 % 29.7 % Mean Corpuscular Volume 98.7 fL 99.7 fL Mean Corpuscular Hemoglobin 32.6 pg 32.9 pg Mean Corpuscular Hemoglobin Concent 33.0 g/dl 33.0 g/dl Platelet Count 140 K/uL 130 K/uL Mean Platelet Volume 9.9 fL 9.7 fL Neutrophils (%) (Auto) 74.1 % 61.4 % Lymphocytes (%) (Auto) 16.3 % 26.8 % Monocytes (%) (Auto) 5.4 % 6.7 % Eosinophils (%) (Auto) 3.6 % 4.6 % Basophils (%) (Auto) 0.5 % 0.4 % Neutrophils # (Auto) 6.18 K/uL 4.42 K/uL Lymphocytes # (Auto) 1.36 K/uL 1.93 K/uL Monocytes # (Auto) 0.45 K/uL 0.48 K/uL Eosinophils # (Auto) 0.30 K/uL 0.33 K/uL Basophils # (Auto) 0.04 K/uL 0.03 K/uL RDW Standard Deviation 48.9 fL 48.7 fL RDW Coefficient of Variation 13.6 % 13.4 % Immature Granulocyte % (Auto) 0.1 % 0.1 % Immature Granulocyte # (Auto) 0.01 K/uL 0.01 K/uL Sodium Level 141 mmol/L 143 mmol/L 145 mmol/L Potassium Level 4.0 mmol/L 3.9 mmol/L 3.7 mmol/L Chloride Level 106 mmol/L 110 mmol/L 114 mmol/L Carbon Dioxide Level 31 mmol/L 31 mmol/L 27 mmol/L Anion Gap 4.0 mmol/L 2.0 mmol/L 3.0 mmol/L Blood Urea Nitrogen 37 mg/dl 35 mg/dl 30 mg/dl Creatinine 2.74 mg/dl 2.52 mg/dl 2.27 mg/dl Est Creatinine Clear Calc Drug Dose 10.7 ml/min 11.7 ml/min 13.1 ml/min Estimated GFR () 18.3 20.3 23.0 Estimated GFR (Non- 15.8 17.5 19.9 BUN/Creatinine Ratio 13.5 13.9 13.2 Random Glucose 172 mg/dl 102 mg/dl 60 mg/dl Calcium Level 12.1 mg/dl 11.4 mg/dl 11.2 mg/dl Phosphorus Level 2.8 mg/dl Magnesium Level 1.9 mg/dl Total Bilirubin 0.4 mg/dl Direct Bilirubin < 0.1 mg/dl Aspartate Amino Transf (AST/SGOT) 17 U/L Alanine Aminotransferase (ALT/SGPT) 31 U/L Alkaline Phosphatase 79 U/L Troponin I < 0.015 ng/ml Total Protein 5.9 gm/dl Albumin 3.1 gm/dl Lipase 91 U/L 25-Hydroxy Vitamin D Total 68.0 ng/ml Parathyroid Hormone (Intact) 14.4 pg/mL Bedside Glucose 91 mg/dl Prothrombin Time 10.4 SECONDS Prothromb Time International Ratio 1.0 Test 09/27/17 07:21 09/27/17 11:56 09/27/17 12:14 09/27/17 16:32 Bedside Glucose 70 mg/dl 106 mg/dl 115 mg/dl Urine Color YELLOW Urine Appearance CLEAR Urine pH 5.5 Urine Specific [place] 1.013 Urine Protein 1+ Urine Glucose (UA) NEG Urine Ketones NEG Urine Occult Blood NEG Urine Nitrite NEG Urine Bilirubin NEG Urine Urobilinogen NEG Urine Leukocyte Esterase NEG Urine WBC (Auto) 1-5 /hpf Urine RBC (Auto) 0-4 /hpf Urine Hyaline Casts (Auto) 1-5 /lpf Urine Epithelial Cells (Auto) 10-20 /lpf Urine Bacteria (Auto) NEG Assessment & Plan RECURRENT HYPERCALCEMIA: -improving with hydration -vitamin D supplement stopped (was just started in June per Nephro as calcium had normalized) -Nephrology consulted, plan for hydration and monitoring DEMETRIO SUPERIMPOSED ON CKD STAGE III: -possibly from poor p.o. intake HTN: -stable. CAD: -history as per records PVD: -s/p previous surgery CHRONIC RESPIRATORY FAILURE: secondary to COPD -on home O2 -hx of past tobacco abuse -at baseline respiratory state DM TYPE II: -on oral meds which have been held for hospitalization -well controlled as of recent outpatient hemoglobin A1c -on carb coverage and correction scale insulin during hospitalization PROTEIN-CALORIE MALNUTRITION: as evidenced by low BMI -bicycle racer has been consulted -boost supplements ordered Current Inpatient Medications: Current Inpatient Medications Medications (Trade) Dose Ordered Sig/Jennifer Route Start Time Stop Time Status Last Admin Dose Admin Amlodipine Besylate (Norvasc Tab) 5 mg DAILY PO 09/27/17 08:00 10/27/17 08:59 09/27/17 08:07 5 MG Atorvastatin Calcium (Lipitor Tab) 80 mg DAILY PO 09/27/17 08:00 10/27/17 08:59 09/27/17 08:06 80 MG Clopidogrel Bisulfate (plAVix TAB) 75 mg DAILY PO 09/27/17 08:00 10/27/17 08:59 09/27/17 08:06 75 MG Albuterol/ Ipratropium (Combivent Respimat Inh) 1 puffs QID INH 09/27/17 08:00 10/27/17 08:59 09/27/17 12:08 1 PUFFS Nitroglycerin (Nitrostat Tab) 0.4 mg UD PRN UT 09/26/17 22:00 10/26/17 21:59 Terazosin HCl (Hytrin Cap) 2 mg DAILY PO 09/27/17 08:00 10/27/17 08:59 09/27/17 08:06 2 MG Metoprolol Succinate (Toprol Xl Tab) 100 mg DAILY PO 09/27/17 08:00 10/27/17 08:59 09/27/17 08:05 100 MG Miscellaneous Information (Order Awaiting Action) 1 ea QS N/A 09/27/17 08:00 10/27/17 07:59 Pantoprazole Sodium (Protonix Tab) 40 mg QAM PO 09/27/17 08:00 10/27/17 08:59 09/27/17 08:06 40 MG Albuterol/ Ipratropium (Duoneb) 3 ml Q2H PRN INH 09/26/17 22:00 10/26/17 21:59 09/27/17 13:45 3 ML Insulin Aspart (novoLOG ASPART) SLIDING SCALE If C... ACHS SC 09/27/17 06:30 10/27/17 06:59 Glucose (Glucose 40% Gel) 15-30 GRAMS 15 GRAMS... UD PRN PO 09/26/17 22:00 10/26/17 21:59 Glucose (Glucose Chew Tab) 4-8 Tablets 4 Tabl... UD PRN PO 09/26/17 22:00 10/26/17 21:59 Dextrose (Dextrose 50% 50ML Syringe) 25-50ML OF 50% DW IV FOR... UD PRN IV 09/26/17 22:00 10/26/17 21:59 Glucagon (Glucagon Inj) 1 mg UD PRN SQ 09/26/17 22:00 10/26/17 21:59 Heparin Sodium (Porcine) (Heparin Sq 5000 Unit/0.5ml) 5,000 unit Q8 SQ 09/27/17 07:30 10/27/17 07:29 09/27/17 13:26 5,000 UNIT Acetaminophen (Tylenol Tab) 650 mg Q4H PRN PO 09/26/17 22:15 5/23/18 22:14 Tramadol HCl (Ultram Tab) 25 mg Q6H PRN PO 09/26/17 22:15 10/26/17 22:14 Prochlorperazine Edisylate 5 mg/ Syringe 5 ml @ 5 mls/min Q6H PRN IV 09/26/17 22:15 10/26/17 22:14 Hydromorphone HCl (Dilaudid Inj) 0.25 mg Q3H PRN IV 09/26/17 22:15 10/10/17 22:14 Sodium Chloride 1,000 ml @ 80 mls/hr [id number] IV 09/27/17 12:00 10/27/17 11:59 09/27/17 12:15 80 MLS/HR Enteral Nutritional Formula (Boost Glucose Control) 1 can BID PO 09/27/17 20:00 10/27/17 19:59
[2017-09-27] MEDS: BOOST GLUCOSE CONTROL PO SCH (20:00)
[2017-09-27] MEDS ORDERED: BOOST VANILLA PO SCH (20:00)
[2017-09-28] MEDS: SODIUM CHLORIDE 0.9% 1000ML 1,000 ML IV SCH (01:09)
[2017-09-28] MEDS: HEPARIN SOD 5000 UNIT/0.5 ML CARP SQ SCH (05:44)
[2017-09-28 06:59] VITALS: BP 130/52; PULSE 65; TEMP 36.7; O2SAT 94
[2017-09-28] MEDS: ALBUT/IPRATROP 3MG/0.5MG NEB 3 ML VIAL INH PRN (07:19)
[2017-09-28 07:21] VITALS: PULSE 64; O2SAT 90
[2017-09-28] MEDS: BOOST GLUCOSE CONTROL PO SCH (07:59)
[2017-09-28] MEDS: IPRATROPIUM BROMIDE/ALBUTEROL respimat INH INH SCH ×2 (07:59→12:04)
[2017-09-28] MEDS: CLOPIDOGREL BISULFATE 75 MG TAB PO SCH (07:59)
[2017-09-28] MEDS: METOPROLOL SUCC 50MG EXT REL TAB PO SCH (07:59)
[2017-09-28] MEDS: ATORVASTATIN 40 MG TAB PO SCH (07:59)
[2017-09-28] MEDS: PANTOprazole SOD 40 MG TAB PO SCH (07:59)
[2017-09-28] MEDS: AMLODIPINE BESYLATE 5 MG TAB PO SCH (07:59)
[2017-09-28 08:51] LABS: CALCIUM 9.4 mg/dl (8.5-10.1); CREATININE 2.05 mg/dl (0.60-1.20)
--- NOTE | 2017-09-28 09:52 | Nephrology Progress Note ---
Nephrology Progress Note Date of Service: Sep 28, 2017. Subjective 77 yo female seen for follow up of hypercalcemia. calcium levels have normalized with the iv fluids alone. pt tired this morning after a low blood sugar event. otherwise doing well and would like to go home today. Objective Date Time Temp Pulse Resp B/P (MAP) Pulse Ox O2 Delivery O2 Flow Rate FiO2 09/28/17 07:21 64 18 90 Nasal Cannula 2.0 09/28/17 06:59 36.7 65 20 130/52 (78) 94 Nasal Cannula 1.0 09/27/17 23:55 36.7 76 18 132/65 (87) 100 Nasal Cannula 2.0 09/27/17 23:20 Room Air 2.0 09/27/17 16:00 Room Air 09/27/17 15:22 36.7 78 19 133/52 (79) 97 Nasal Cannula 2.0 09/27/17 13:46 71 18 98 Nasal Cannula 2.0 09/27/17 11:50 96 Physical Exam: General-aaox3 Eyes-no scleral icterus ENT-mmm Neck-supple Lungs-minimal air movement Heart-rrr Abdomen-bs+ s/nt/nd Extremities-no c/c/e Neuro-nonfocal Current Inpatient Medications Medications (Trade) Dose Ordered Sig/Jennifer Route Start Time Stop Time Status Last Admin Dose Admin Amlodipine Besylate (Norvasc Tab) 5 mg DAILY PO 09/27/17 08:00 10/27/17 08:59 09/28/17 07:59 5 MG Atorvastatin Calcium (Lipitor Tab) 80 mg DAILY PO 09/27/17 08:00 10/27/17 08:59 09/28/17 07:59 80 MG Clopidogrel Bisulfate (plAVix TAB) 75 mg DAILY PO 09/27/17 08:00 10/27/17 08:59 09/28/17 07:59 75 MG Albuterol/ Ipratropium (Combivent Respimat Inh) 1 puffs QID INH 09/27/17 08:00 10/27/17 08:59 09/28/17 07:59 1 PUFFS Nitroglycerin (Nitrostat Tab) 0.4 mg UD PRN UT 09/26/17 22:00 10/26/17 21:59 Terazosin HCl (Hytrin Cap) 2 mg DAILY PO 09/27/17 08:00 10/27/17 08:59 09/28/17 07:59 2 MG Metoprolol Succinate (Toprol Xl Tab) 100 mg DAILY PO 09/27/17 08:00 10/27/17 08:59 09/28/17 07:59 100 MG Miscellaneous Information (Order Awaiting Action) 1 ea QS N/A 09/27/17 08:00 10/27/17 07:59 Pantoprazole Sodium (Protonix Tab) 40 mg QAM PO 09/27/17 08:00 10/27/17 08:59 09/28/17 07:59 40 MG Albuterol/ Ipratropium (Duoneb) 3 ml Q2H PRN INH 09/26/17 22:00 10/26/17 21:59 09/28/17 07:19 3 ML Glucose (Glucose 40% Gel) 15-30 GRAMS 15 GRAMS... UD PRN PO 09/26/17 22:00 10/26/17 21:59 Glucose (Glucose Chew Tab) 4-8 Tablets 4 Tabl... UD PRN PO 09/26/17 22:00 10/26/17 21:59 Dextrose (Dextrose 50% 50ML Syringe) 25-50ML OF 50% DW IV FOR... UD PRN IV 09/26/17 22:00 10/26/17 21:59 Glucagon (Glucagon Inj) 1 mg UD PRN SQ 09/26/17 22:00 10/26/17 21:59 Heparin Sodium (Porcine) (Heparin Sq 5000 Unit/0.5ml) 5,000 unit Q8 SQ 09/27/17 07:30 10/27/17 07:29 09/28/17 05:44 5,000 UNIT Acetaminophen (Tylenol Tab) 650 mg Q4H PRN PO 09/26/17 22:15 10/26/17 22:14 Tramadol HCl (Ultram Tab) 25 mg Q6H PRN PO 09/26/17 22:15 10/26/17 22:14 Prochlorperazine Edisylate 5 mg/ Syringe 5 ml @ 5 mls/min Q6H PRN IV 09/26/17 22:15 10/26/17 22:14 Hydromorphone HCl (Dilaudid Inj) 0.25 mg Q3H PRN IV 09/26/17 22:15 10/10/17 22:14 Enteral Nutritional Formula (Boost Glucose Control) 1 can BID PO 09/27/17 20:00 10/27/17 19:59 09/28/17 07:59 1 CAN Last 24 Hours Test 09/27/17 11:56 09/27/17 12:14 09/27/17 16:32 09/27/17 20:21 Bedside Glucose 106 mg/dl 115 mg/dl 85 mg/dl Urine Color YELLOW Urine Appearance CLEAR Urine pH 5.5 Urine Specific [place] 1.013 Urine Protein 1+ Urine Glucose (UA) NEG Urine Ketones NEG Urine Occult Blood NEG Urine Nitrite NEG Urine Bilirubin NEG Urine Urobilinogen NEG Urine Leukocyte Esterase NEG Urine WBC (Auto) 1-5 /hpf Urine RBC (Auto) 0-4 /hpf Urine Hyaline Casts (Auto) 1-5 /lpf Urine Epithelial Cells (Auto) 10-20 /lpf Urine Bacteria (Auto) NEG Test 09/28/17 07:24 09/28/17 07:44 09/28/17 07:47 Bedside Glucose 63 mg/dl 72 mg/dl Sodium Level 144 mmol/L Potassium Level 4.0 mmol/L Chloride Level 115 mmol/L Carbon Dioxide Level 27 mmol/L Anion Gap 2.0 mmol/L Blood Urea Nitrogen 25 mg/dl Creatinine 2.05 mg/dl Est Creatinine Clear Calc Drug Dose 14.5 ml/min Estimated GFR () 26.1 Estimated GFR (Non- 22.5 BUN/Creatinine Ratio 12.1 Random Glucose 69 mg/dl Calcium Level 9.4 mg/dl Assessment & Plan hypercalcemia-calcium levels have normalized. will stop the iv fluids. creatinine also back to baseline. ok from renal perspective to go home today. off vitamin d and off calcium supplements. recheck bmp again next week. stay well hydrated.
--- NOTE | 2017-09-28 10:52 | Discharge Instructions ---
Discharge Instructions Date of Service Sep 28, 2017. Admission Reason for Admission: Hypercalcemia Discharge Discharge Diagnosis / Problem: Hypercalcemia, acute kidney injury Discharge Goals Goal(s): Diagnostic testing, Therapeutic intervention Activity Recommendations Activity Limitations: resume your previous activity . Instructions / Follow-Up Instructions / Follow-Up Please see Dr. Baumann on October 04 at 10:25 AM for hospital follow up Please have labs done before that appointment if possible Current Hospital Diet Patient's current hospital diet: Diabetes Type 2 Diet Discharge Diet Recommended Diet: Diabetes Type 2 Diet Pending Studies Studies pending at discharge: no Medical Emergencies . Who to Call and When: Medical Emergencies: If at any time you feel your situation is an emergency, please call 911 immediately. . Non-Emergent Contact Non-Emergency issues call your: Primary Care Provider, Medical Record Assistant Call Non-Emergent contact if: you have a fever, your pain is not controlled, you have any medication questions . . "Provider Documentation" section prepared by Josseline Tillman. .
[2017-09-28 11:51] VITALS: BP 130/52; PULSE 64; TEMP 36.7; O2SAT 90
[2017-09-28] MEDS ORDERED: Labs (12:02)
--- NOTE | 2017-09-29 10:24 | EDITING REQUIRED CODING QUERY ---
MALNUTRITION To promote full compliance with coding requirements relating to patient care, physician participation is requested in all cases of medical biller/coder uncertainty. Please assist us with the question(s) below: Please place an X within the parenthesis (x). If other, please document: "Malnutrition" is documented in this record. If possible, please check the box that provides a more specific diagnosis: ( ) Mild malnutrition ( ) Moderate malnutrition ( ) Severe malnutrition ( ) Protein malnutrition (kwashiorkor) ( ) Severe protein calorie malnutrition (x ) Protein calorie malnutrition, unspecified ( ) Other (please specify): Was this diagnosis present on admission? Please place an X within the parenthesis (x). (x ) Present on admission ( ) Not present on admission ( ) Unable to be clinically determined Thank you Joyce Flores
--- NOTE | 2017-10-02 10:35 | Discharge Summary ---
Discharge Summary Date of Service Oct 02, 2017. Discharge Summary Admission Date: Sep 26, 2017 at 22:01 Discharge Date: Sep 28, 2017 Hospital Course RECURRENT HYPERCALCEMIA: -improving with hydration -vitamin D supplement stopped (was just started in June per Nephro as calcium had normalized) -Nephrology consulted, plan for hydration and monitoring DEMETRIO SUPERIMPOSED ON CKD STAGE III: -possibly from poor p.o. intake HTN: -stable. CAD: -history as per records PVD: -s/p previous surgery CHRONIC RESPIRATORY FAILURE: secondary to COPD -on home O2 -hx of past tobacco abuse -at baseline respiratory state DM TYPE II: -on oral meds which have been held for hospitalization -well controlled as of recent outpatient hemoglobin A1c -on carb coverage and correction scale insulin during hospitalization PROTEIN-CALORIE MALNUTRITION: as evidenced by low BMI -floor care technician has been consulted -boost supplements ordered Total time spent on discharge = This includes examination of the patient, discharge planning, medication reconciliation, and communication with other providers.
[2017-10-06] MEDS ORDERED: SYMIN INH (14:14)
== END 2017-09-28 13:06 | disposition home health service (06) | DRG 641 ==
LOC: EDBD 19:41 → C.EDB 19:42 → C.MS4W 22:01 → ENRESERV 22:15
PROVIDERS: ADMIT Internal Medicine; ATTEND Internal Medicine
DX: E83.52 Hypercalcemia (principal); N17.9 Acute kidney failure, unspecified; E46 Unspecified protein-calorie malnutrition; Z68.1 Body mass index [BMI] 19.9 or less, adult; N18.4 Chronic kidney disease, stage 4 (severe); J96.10 Chronic respiratory failure, unspecified whether with hypoxia or hypercapnia; E11.22 Type 2 diabetes mellitus with diabetic chronic kidney disease; I13.10 Hypertensive heart and chronic kidney disease without heart failure, with stage 1 through stage 4 chronic kidney disease, or unspecified chronic kidney disease; I25.10 Atherosclerotic heart disease of native coronary artery without angina pectoris; I25.5 Ischemic cardiomyopathy; I25.2 Old myocardial infarction; J44.9 Chronic obstructive pulmonary disease, unspecified; E78.5 Hyperlipidemia, unspecified; K21.9 Gastro-esophageal reflux disease without esophagitis; I73.9 Peripheral vascular disease, unspecified; Z51.81 Encounter for therapeutic drug level monitoring; Z79.899 Other long term (current) drug therapy; Z99.81 Dependence on supplemental oxygen; Z87.891 Personal history of nicotine dependence; Z88.5 Allergy status to narcotic agent; Z88.0 Allergy status to penicillin; Z88.6 Allergy status to analgesic agent; Z88.8 Allergy status to other drugs, medicaments and biological substances; Z88.1 Allergy status to other antibiotic agents

== ENCOUNTER 2017-10-03 21:07 | Inpatient (IN) | payer OTHER ==
[~2017-10-03] VITALS: Ht 157.5 cm; Wt 42.0 kg
[~2017-10-03 21:07] MED LIST changes: +ACET-749 PO; -CLOP1TAB15 PO; +GARL400T2 PO; +Labs; -METO100T44 PO; +MOME200A INH; +NATE1TAB PO; -NATE60TA PO; +NRV/5 PO; -NRV5 PO; -NYST1OIN9 TOP; +OXGN; +PANT20TA2 PO; +PLV75 PO; -PRT/20 PO; -SYMIN160 INH; +TPRSR/100 PO
[2017-10-03] MEDS ORDERED: IPRATROPIUM BROMIDE NEB SOLN 0.02% 2.5 ML VIAL INH STA (21:43)
[2017-10-03] MEDS ORDERED: LEVALBUTEROL 1.25MG/0.5ML NEB INH STA (21:43)
--- NOTE | 2017-10-03 22:04 | DIAGNOSTIC IMAGING REPORT ---
CHEST ONE VIEW PORTABLE CLINICAL HISTORY: EVALUATE RESPIRATORY DISTRESS.DYSPNEA dyspnea COMPARISON STUDY: 09/26/2017 FINDINGS: Mild emphysematous change. No focal infiltrate. Diaphragms are smooth. No significant cardiac enlargement. IMPRESSION: Mild emphysematous change. Otherwise negative study. The above report was generated using voice recognition software. It may contain grammatical, syntax or spelling errors. Electronically signed by: Julio Cesar Valdivia M.D. 10/03/2017 10:03 PM Dictated Date/Time: 10/03/2017 10:02 PM
[2017-10-03 22:13] VITALS: PULSE 96; O2SAT 99
[2017-10-03 22:32] LABS: BASO % 0.4 %; BASO ABS # 0.03 K/uL (0-0.2); EOS % 3.2 %; EOS ABS # 0.23 K/uL (0-0.5); HEMATOCRIT 29.3 % (37-47); HEMOGLOBIN 9.6 g/dL (12.0-16.0); IG# 0.02 K/uL (0.00-0.02); LYMPH % 17.6 %; LYMPH ABS # 1.26 K/uL (1.2-3.4); MEAN CELL VOLUME 98.7 fL (80-100); MEAN CORPUSCULAR HEMOGLOBIN 32.3 pg (25-34); MEAN CORPUSCULAR HGB CONC 32.8 g/dl (32-36); MEAN PLATELET VOLUME 9.6 fL (7.4-10.4); MONO % 6.7 %; MONO ABS # 0.48 K/uL (0.11-0.59); NEUT % 71.8 %; NEUT ABS # 5.14 K/uL (1.4-6.5); PLATELET COUNT 172 K/uL (130-400); RED CELL DISTRIBUTION WIDTH CV 14.3 % (11.5-14.5); RED CELL DISTRIBUTION WIDTH SD 50.8 fL (36.4-46.3); WHITE BLOOD COUNT 7.16 K/uL (4.8-10.8)
[2017-10-03 22:41] LABS: PTT PATIENT 23.3 SECONDS (21.0-31.0)
[2017-10-03 23:00] LABS: ALBUMIN 3.2 gm/dl (3.4-5.0); ALT/SGPT 43 U/L (12-78); AST/SGOT 26 U/L (15-37); BLOOD UREA NITROGEN 25 mg/dl (7-18); CALCIUM 9.6 mg/dl (8.5-10.1); CARBON DIOXIDE 29 mmol/L (21-32); GLUCOSE 116 mg/dl (70-99); SODIUM 140 mmol/L (136-145)
--- NOTE | 2017-10-03 23:05 | EMERGENCY ROOM VISIT NOTE ---
History Report prepared by Romero: Zaida Gannon Under the Supervision of: Dr. Vikram Bailey M.D. First contact with patient: 21:36 Chief Complaint: RESPIRATORY PROBLEMS Stated Complaint: DEHYDRATION,COTTON MOUTH,SWELLED ANKLES History of Present Illness The patient is a 77 year old female who presents to the Emergency Room with complaints of persistent swelling to the feet starting 7 hours ago. When the patient's home health nurse saw her this morning, there was no swelling noted to her feet. The patient noticed the swelling in her feet this afternoon. She is also feeling more SOB than usual. She uses a nebulizer 4 times a day. Her last nebulizer was 2.5 hours ago and she is still feeling SOB. She notes that she is not urinating despite drinking plenty of water. She last urinated 10 hours ago. She reports a cotton mouth sensation despite drinking water and ice chips. She denies any burning with urination, chest pain, cough, fever, vomiting , or diarrhea. The patient has a history of COPD. She notes that she was switched from Symbicort to a new inhaler recently. She was recently admitted to the hospital for 2 days because of her breathing. She is always on 2L of oxygen. She has had fluid in her legs in the past. She has a history of OH. Source of History: patient Onset: 7 hours ago Position: foot (bilateral) Quality: other (swelling) Timing: other (persistent) Associated Symptoms: + SOB, No fevers, No cough, No chest pain, No vomiting , No diarrhea Note: Pt reports decreased urination, cotton mouth. Review of Systems See HPI for pertinent positives & negatives. A total of 10 systems reviewed and were otherwise negative. Past Medical & Surgical Medical Problems: (1) CAD (coronary artery disease) (2) CKD (chronic kidney disease), stage IV (3) COPD, severe (4) DM type 2 (diabetes mellitus, type 2) (5) Dyslipidemia (6) Femoral artery aneurysm, right (7) GERD (gastroesophageal reflux disease) (8) Hypercalcemia (9) Hypercalcemia (10) Ischemic cardiomyopathy (11) PVD (peripheral vascular disease) Surgical Problems: (1) H/O aorto-femoral bypass (2) History of hysterectomy (3) Hx of appendectomy (4) Hx of cataract surgery (5) S/P carotid endarterectomy (6) S/P femoral-popliteal bypass surgery Family History Cardiac disorder FATHER Social History Smoking Status: Former Smoker Alcohol Use: none Marital Status: Housing Status: lives alone Current/Historical Medications Scheduled Amlodipine Besylate (Amlodipine Besylate), 5 MG PO DAILY Atorvastatin (Lipitor), 80 MG PO DAILY Clopidogrel Bisulfate (Clopidogrel), 75 MG PO DAILY Fish Oil ([place]-3), 1,000 MG PO BID Garlic (Garlic), 400 MG PO DAILY Home O2 Therapy (Oxygen), 2 LITERS NA UD Ipratropium-Albuterol (Combivent Respimat), 1 PUFF INH QID Metoprolol Succinate (Metoprolol Succinate ER), 100 MG PO DAILY Mometasone Furoate-Formoterol (Dulera 200/5 Mcg), 2 PUFFS INH BID Nateglinide (Starlix), 60 MG PO AC Pantoprazole Sodium (Protonix), 20 MG PO QAM Terazosin Hcl (Hytrin), 2 MG PO DAILY Scheduled PRN Acetaminophen Tab (Tylenol), 650 MG PO Q4H PRN for Headache or Pain Acetaminophen/Codeine (Tylenol W/Codeine #3), 1 TAB PO BID PRN for Pain Ipratropium-Albuterol (Duoneb), 1 VIAL NEB QID PRN for Shortness of Breath Nitroglycerin (Nitrostat), 0.4 MG UT UD PRN for Chest Pain Allergies Coded Allergies: Codeine (Verified Allergy, Mild, 06/09/16) ABD DISTRESS Amoxicillin (Verified Allergy, Unknown, unknown, 08/14/16) Aspirin (Verified Allergy, Unknown, UNKNOWN, 06/09/16) PER HER DOCTOR, SHE IS NOT SUPPOSE TO TAKE IT BECAUSE OF HER KIDNEYS Bacitracin (Verified Allergy, Unknown, Rash, 09/26/17) Isosorbide Nitrate (Verified Allergy, Unknown, unknown, 08/14/16) Neomycin (Verified Allergy, Unknown, Rash, 09/26/17) Polymyxin B (Verified Allergy, Unknown, Rash, 09/26/17) Physical Exam Vital Signs Date Time Temp Pulse Resp B/P (MAP) Pulse Ox O2 Delivery O2 Flow Rate FiO2 10/03/17 23:18 96 18 148/60 96 Nasal Cannula 2.0 10/03/17 22:13 96 26 99 Nasal Cannula 2.0 10/03/17 22:05 Nasal Cannula 2.0 10/03/17 22:03 93 Nasal Cannula 2.0 10/03/17 21:28 Nasal Cannula 2.0 10/03/17 21:23 36.8 98 28 154/65 97 Room Air Physical Exam GENERAL: Patient is in no acute distress. HEENT: No acute trauma, normocephalic atraumatic, mucous membranes moist, no nasal congestion, no scleral icterus. NECK: No stridor, no adenopathy, no meningismus, trachea is midline. LUNGS: Crackles at both lower lung garcia. Diminished breath sounds bilaterally. No wheezing. No respiratory distress. HEART: Without murmurs gallops or rubs, regular rate and rhythm. ABDOMEN: Soft, nontender, bowel sounds positive, no hernias, no peritonitis. EXTREMITIES: No cyanosis, mild bilateral pedal edema, full range of motion of all the joints without pain or difficulty, no signs for acute trauma. NEUROLOGIC: Oriented x 3, no acute motor or sensory deficits, no focal weakness. SKIN: No rash, no jaundice, no diaphoresis. Medical Decision & Procedures ER Provider Diagnostic Interpretation: X-ray results as stated below per interpretation by me and the radiologist. Radiology results as stated below per my review and [facility] radiologist interpretation: CHEST ONE VIEW PORTABLE CLINICAL HISTORY: EVALUATE RESPIRATORY DISTRESS.DYSPNEA dyspnea COMPARISON STUDY: 09/26/2017 FINDINGS: Mild emphysematous change. No focal infiltrate. Diaphragms are smooth. No significant cardiac enlargement. IMPRESSION: Mild emphysematous change. Otherwise negative study. The above report was generated using voice recognition software. It may contain grammatical, syntax or spelling errors. Electronically signed by: Julio Cesar Valdivia M.D. 10/03/2017 10:03 PM Dictated Date/Time: 10/03/2017 10:02 PM US Venous Bilateral Lower Extremities: No evidence of deep venous thrombosis. Laboratory Results 10/03/17 22:15 Red Blood Count 2.97, Mean Corpuscular Volume 98.7, Mean Corpuscular Hemoglobin 32.3, Mean Corpuscular Hemoglobin Concent 32.8, Mean Platelet Volume 9.6, Neutrophils (%) (Auto) 71.8, Lymphocytes (%) (Auto) 17.6, Monocytes (%) (Auto) 6.7, Eosinophils (%) (Auto) 3.2, Basophils (%) (Auto) 0.4, Neutrophils # (Auto) 5.14, Lymphocytes # (Auto) 1.26, Monocytes # (Auto) 0.48, Eosinophils # (Auto) 0.23, Basophils # (Auto) 0.03 10/03/17 22:15 Test 10/03/17 21:37 10/03/17 22:15 10/03/17 22:45 Bedside Glucose 136 mg/dl (70-90) White Blood Count 7.16 K/uL (4.8-10.8) Red Blood Count 2.97 M/uL (4.2-5.4) Hemoglobin 9.6 g/dL (12.0-16.0) Hematocrit 29.3 % (37-47) Mean Corpuscular Volume 98.7 fL (80-100) Mean Corpuscular Hemoglobin 32.3 pg (25-34) Mean Corpuscular Hemoglobin Concent 32.8 g/dl (32-36) Platelet Count 172 K/uL (130-400) Mean Platelet Volume 9.6 fL (7.4-10.4) Neutrophils (%) (Auto) 71.8 % Lymphocytes (%) (Auto) 17.6 % Monocytes (%) (Auto) 6.7 % Eosinophils (%) (Auto) 3.2 % Basophils (%) (Auto) 0.4 % Neutrophils # (Auto) 5.14 K/uL (1.4-6.5) Lymphocytes # (Auto) 1.26 K/uL (1.2-3.4) Monocytes # (Auto) 0.48 K/uL (0.11-0.59) Eosinophils # (Auto) 0.23 K/uL (0-0.5) Basophils # (Auto) 0.03 K/uL (0-0.2) RDW Standard Deviation 50.8 fL (36.4-46.3) RDW Coefficient of Variation 14.3 % (11.5-14.5) Immature Granulocyte % (Auto) 0.3 % Immature Granulocyte # (Auto) 0.02 K/uL (0.00-0.02) Prothrombin Time 10.2 SECONDS (9.0-12.0) Prothromb Time International Ratio 1.0 (0.9-1.1) Activated Partial Thromboplast Time 23.3 SECONDS (21.0-31.0) Partial Thromboplastin Ratio 0.9 Anion Gap 5.0 mmol/L (3-11) Estimated GFR () 28.6 Estimated GFR (Non- 24.6 BUN/Creatinine Ratio 12.9 (10-20) Calcium Level 9.6 mg/dl (8.5-10.1) Magnesium Level 1.8 mg/dl (1.8-2.4) Total Bilirubin 0.3 mg/dl (0.2-1) Aspartate Amino Transf (AST/SGOT) 26 U/L (15-37) Alanine Aminotransferase (ALT/SGPT) 43 U/L (12-78) Alkaline Phosphatase 114 U/L (45-117) Troponin I < 0.015 ng/ml (0-0.045) Pro-B-Type Natriuretic Peptide 3281 pg/ml (0-1800) Total Protein 6.2 gm/dl (6.4-8.2) Albumin 3.2 gm/dl (3.4-5.0) Globulin 3.0 gm/dl (2.5-4.0) Albumin/Globulin Ratio 1.1 (0.9-2) Thyroid Stimulating Hormone (TSH) 0.643 uIu/ml (0.300-4.500) Urine Color YELLOW Urine Appearance CLEAR (CLEAR) Urine pH 7.0 (4.5-7.5) Urine Specific Panther 1.006 (1.000-1.030) Urine Protein 1+ (NEG) Urine Glucose (UA) NEG (NEG) Urine Ketones NEG (NEG) Urine Occult Blood NEG (NEG) Urine Nitrite NEG (NEG) Urine Bilirubin NEG (NEG) Urine Urobilinogen NEG (NEG) Urine Leukocyte Esterase NEG (NEG) Urine WBC (Auto) 0 /hpf (0-5) Urine RBC (Auto) 0-4 /hpf (0-4) Urine Hyaline Casts (Auto) 0 /lpf (0-5) Urine Epithelial Cells (Auto) 0-5 /lpf (0-5) Urine Bacteria (Auto) NEG (NEG) Laboratory results reviewed by me. Medications Administered Medications (Trade) Dose Ordered Sig/Jennifer Route Start Time Stop Time Status Last Admin Dose Admin Levalbuterol (Xopenex 1.25MG/ 0.5ML Neb) 1.25 mg NOW STAT INH 10/03/17 21:43 10/03/17 21:47 DC 10/03/17 22:11 1.25 MG Ipratropium [place] (Atrovent 0.02% 0.5MG/2.5ML Neb) 0.5 mg NOW STAT INH 10/03/17 21:43 10/03/17 21:47 DC 10/03/17 22:11 0.5 MG Furosemide (Lasix Inj) 40 mg NOW STAT IV 10/03/17 23:44 10/03/17 23:45 DC 10/03/17 23:53 40 MG ECG Per My Interpretation Indication: SOB/dyspnea Rate (beats per minute): 96 Rhythm: normal sinus Findings: nonspecific-ST abn, other (baseline artifact, no ST elevation, no PVC ) ED Course 2138: The patient was evaluated in room C3. A complete history and physical exam was performed. 3: Ipratropium [place] 0.5 mg INH, Levalbuterol 1.25 mg INH. 2236: Bladder scan revealed 485 cc. 2344: Lasix Inj 40 mg IV. 2346: Upon reexamination the patient is stable. I discussed results and treatment plan with the patient. She verbalizes agreement and understanding. The patient will be evaluated for further management. 2351: I discussed the patient's case Dr. Pascual[facility] The patient will be evaluated for further management. Medical Decision Differential diagnoses considered include medication reaction, fluid overload, DVT, CHF, electrolyte imbalance, renal failure, UTI, anemia, cardiac ischemia, exacerbation of COPD . There is no leukocytosis. The patient is anemic but this is baseline looking back at previous testing. Renal panel testing shows a higher creatinine, this is baseline for the patient. No evidence for hepatitis. No coagulopathy. EKG shows a sinus rhythm with some nonspecific change, no acute ischemia. Cardiac enzyme testing 1 is not consistent with acute cardiac injury. Chest film shows evidence for COPD, no pneumonia or obvious CHF. BNP is elevated consistent with fluid overload. Urinalysis does not show infection. Bilateral lower extremity ultrasound does not show evidence for DVT. The patient received IV Lasix, she was given a Xopenex Atrovent neb. The patient was retaining urine, a Perez catheter was placed and a significant amount of urine drained. I think the patient is fluid overloaded, this has caused increasing dyspnea, this has caused the leg edema. In addition, the patient is retaining urine, the cause for this is unclear. Patient is feeling improved since treatment, I do think a hospital stay is warranted. I spoke to the patient and case management. The on-call hospitalist was consulted. Medication Reconcilliation Current Medication List: was personally reviewed by me Blood Pressure Screening Patient's blood pressure: Elevated blood pressure Referred to hospitalist. Consults Time Called: 2347 Consulting Physician: [facility] Returned Call: [phone] Discussed the patient's case. The patient will be evaluated for further management. Impression Primary Impression: Heart failure Additional Impressions: Fluid overload Urinary retention Scribe Attestation The scribe's documentation has been prepared under my direction and personally reviewed by me in its entirety. I confirm that the note above accurately reflects all work, treatment, procedures, and medical decision making performed by me. Departure Information Dispostion Being Evaluated By Hospitalist Referrals Dong Baumann M.D. ([facility]) (PCP) Patient Instructions My [facility] [address] Problem Qualifiers
[2017-10-03 23:11] LABS: ALKALINE PHOSPHATASE 114 U/L (45-117); TOTAL PROTEIN 6.2 gm/dl (6.4-8.2)
[2017-10-03] MEDS ORDERED: FUROSEMIDE 40 MG/4 ML VIAL IV STA (23:44)
[2017-10-04] VITALS (12 sets, daily range): BP systolic 124–160; BP diastolic 43–94; PULSE 71–98; TEMP 36.5–37.4; O2SAT 96–100; BMI 16.7
[2017-10-04] MEDS ORDERED: ONDANSETRON INJ 2 MG/ML 2 ML VIAL IV PRN (00:30)
[2017-10-04] MEDS ORDERED: NITROGLYCERIN 0.4 MG SL PER TAB CHARGE SL PRN (00:30)
[2017-10-04] MEDS ORDERED: ALUMINUM/MAGNESIUM/SIMETH (MAALOX MAX) 30 ML UDC PO PRN (00:30)
[2017-10-04] MEDS ORDERED: ACETAMINOPHEN 325 MG TAB PO PRN ×2 (00:30)
[2017-10-04] MEDS ORDERED: POLYETHYLENE (MIRALAX) 17 GM PACK PO PRN (00:30)
[2017-10-04] MEDS ORDERED: GLUCOSE 40% GEL 15 GM TUBE PO PRN (01:15)
[2017-10-04] MEDS ORDERED: DEXTROSE 50% 50 ML SYR IV PRN (01:15)
[2017-10-04] MEDS ORDERED: GLUCAGON FOR INJ 1 MG VIAL SQ PRN (01:15)
[2017-10-04] MEDS ORDERED: GLUCOSE 10 TABS/TUBE PO PRN (01:15)
[2017-10-04] MEDS ORDERED: PATIENT'S HEIGHT AND/OR WEIGHT NEEDED SCH (01:45)
--- NOTE | 2017-10-04 02:35 | HISTORY & PHYSICAL EXAMINATION ---
DATE OF ADMISSION: 10/04/2017 CHIEF COMPLAINT: Shortness of breath. HISTORY OF PRESENT ILLNESS: This is a 77-year-old female with past medical history significant for severe COPD, chronic respiratory failure on home oxygen at nighttime, chronic kidney disease stage IV, baseline creatinine around 2, diabetes, history of peripheral edema, history of hypercalcemia, history of GERD, history of hypertension, history of CAD status post stent, history of carotid stenosis, history of proteinuria, presents with shortness of breath. The patient states that yesterday she was feeling short of breath and her legs are more swollen than usual and today the shortness of breath was worse and she was brought into the ER and also having trouble urinating since today. She uses nebulizer 4 times a day and today in spite of using the nebulizer she was still feeling short of breath and that is the reason she was brought into the ER. Currently, resting comfortably and hemodynamically stable, saturating okay on 2 liters. Denies any headaches. No blurred vision. Somewhat hard to hear, but no earache, no runny nose, no sore throat, no difficulty swallowing. Feels dry in the mouth. Denies any chest pain. No fever, no chills, no nausea, no vomiting, no abdominal pain. Appetite is okay. Normal bowel movements. No blood in the stools. The patient lives alone. Her brother comes and checks on her and neighbor helps her. Neighbor and brother bring her food. She ambulates with cane or walker at home. ALLERGIES: AMOXICILLIN, IMDUR, SALICYLATES, NEOSPORIN. PAST MEDICAL HISTORY: As mentioned above. PAST SURGICAL HISTORY: Aortofemoral bypass graft, left heart catheterization, left carotid artery endarterectomy, right femoral artery aneurysm repair, laser procedure for the eye, left carotid stent placement, total abdominal hysterectomy with tubectomy. MEDICATIONS: Patient is on Tylenol with codeine 1 tablet p.o. b.i.d. p.r.n., DuoNebs 3-4 times a day as needed, amlodipine 5 mg p.o. daily, Lipitor 80 mg p.o. daily, Plavix 75 mg p.o. daily, garlic 400 mg p.o. daily, home oxygen 2 liters at bedtime., Combivent 1 puff q.i.d., Toprol-XL 100 mg p.o. daily, Dulera 2 puffs b.i.d., Starlix 60 mg t.i.d. with meals, nitroglycerin 0.4 mg sublingual p.r.n., fish oil 1 capsule p.o. b.i.d., Protonix 20 mg p.o. daily, Hytrin 2 mg p.o. daily. FAMILY HISTORY: Significant for father had heart disorder. Mother at age of 86. SOCIAL HISTORY: Quit smoking in 2000, smoked half pack a day for 40 years. No alcohol use, no drug use. . Lives alone. Brother checks her and neighbors help her. PHYSICAL EXAMINATION: GENERAL: The patient is old and frail, not in distress. VITAL SIGNS: Temperature 36.8, pulse 96, respiratory rate 18, blood pressure 148/60, oxygen 96% on 2 liters. HEENT: No pallor, no icterus. Pupils equal, round react to light. NECK: No JVD, no neck masses, no carotid bruits. CARDIOVASCULAR: S1, S2, heard, regular rate and rhythm, no murmur, no gallop. RESPIRATORY SYSTEM: Normal AP diameter. No accessory use. No wheezing, no crackles. ABDOMEN: Soft, bowel sounds present. Nontender. No distention. CENTRAL NERVOUS SYSTEM: Cranial nerves II-XII grossly intact. Nonfocal. EXTREMITIES: Lower extremity edema present, no erythema seen. LABORATORIES: WBC 7.1, hemoglobin 9.6, hematocrit 29.3, platelets 172. Sodium 140, potassium 4.0, chloride 107, bicarbonate 29, BUN 25, creatinine 1.9, serum glucose 116, calcium 9.6, magnesium 1.3, total bilirubin 0.3, AST 26, ALT 43, alkaline phosphatase is 114. Troponin I less than 0.015. BNP 3281. TSH 0.6. PT 10.2, INR 1, APTT 23.3. Urinalysis negative. Chest x-ray, mild emphysematous changes, otherwise negative study. Lower extremity Doppler, unofficial report, no DVT. EKG: Normal sinus rhythm with the rate of 96, nonspecific ST changes. No acute ST changes seen. ASSESSMENT AND PLAN: This is a 77-year-old female who presents with shortness of breath and lower extremity edema. 1. Shortness of breath and lower extremity edema. Echo done in 2015 show normal EF with grade 1 diastolic dysfunction, possibly right-sided heart failure from severe chronic obstructive pulmonary disease, possible acute diastolic congestive heart failure. We will check echocardiogram. Received a dose of Lasix in the ER. We will hold further Lasix and monitor I's and O's, daily weights and based on echo report and response, we will consult cardiology evaluation. 2. History of severe chronic obstructive pulmonary disease, chronic respiratory failure on 2 liters oxygen at nighttime. Continue home inhalers and nebs p.r.n. Currently, no wheezing. We will monitor. 3. History of peripheral vascular disease,on Plavix and on statin. 4. History of coronary artery disease, status post stents, on statin, Plavix and beta flor. We will follow echocardiogram. 5. History of chronic kidney disease, stage IV. Baseline creatinine of around 2. Presented with creatinine of 1.9. Received a dose of Lasix. We will follow the labs. 6. History of hypercalcemia. The patient got admitted multiple times for hypercalcemia in the past and workup was negative. On last admission, vitamin D was stopped. Today, calcium is 9.6 and was advised to drink lot of fluids. The patient received Lasix today. We will monitor the labs. 7. Urinary retention, status post Perez catheter. We will consult urology in a.m. 8. History of hypertension. Continue amlodipine, Toprol-XL and Hytrin. We will monitor the blood pressure. 9. Deep venous thrombosis prophylaxis, SCDs and heparin subQ. DISPOSITION: Admit to tele floor. PT and OT prior to discharge. Social service to help with discharge planning. Code status: Level 1 full code. MTDD
[2017-10-04 06:39] LABS: BASO % 0.5 %; BASO ABS # 0.03 K/uL (0-0.2); EOS % 4.3 %; EOS ABS # 0.28 K/uL (0-0.5); HEMATOCRIT 28.8 % (37-47); HEMOGLOBIN 9.5 g/dL (12.0-16.0); IG# 0.01 K/uL (0.00-0.02); LYMPH % 23.2 %; LYMPH ABS # 1.51 K/uL (1.2-3.4); MEAN CELL VOLUME 98.6 fL (80-100); MEAN CORPUSCULAR HEMOGLOBIN 32.5 pg (25-34); MEAN PLATELET VOLUME 9.1 fL (7.4-10.4); MONO % 6.8 %; MONO ABS # 0.44 K/uL (0.11-0.59); NEUT ABS # 4.24 K/uL (1.4-6.5); PLATELET COUNT 152 K/uL (130-400); RED CELL DISTRIBUTION WIDTH CV 14.1 % (11.5-14.5); RED CELL DISTRIBUTION WIDTH SD 51.1 fL (36.4-46.3); WHITE BLOOD COUNT 6.51 K/uL (4.8-10.8)
[2017-10-04] MEDS: ALBUT/IPRATROP 3MG/0.5MG NEB 3 ML VIAL INH PRN ×2 (06:54→23:48)
[2017-10-04] MEDS: INSULIN ASPART 100 UNITS/ML 3 ML PEN SC SCH ×4 (07:00→20:25)
--- NOTE | 2017-10-04 07:04 | DIAGNOSTIC IMAGING REPORT ---
ULTRASOUND BILATERAL LOWER EXTREMITY VENOUS CLINICAL HISTORY: Lower extremity edema. COMPARISON STUDY: Bilateral lower extremity venous ultrasound dated 06/18/2013. TECHNIQUE: Real-time, grayscale, and color Doppler sonography of the deep veins of the right and left lower extremity was performed from the inguinal crease to the calf. Compression and augmentation were utilized. FINDINGS: There is no sonographic evidence of deep venous thrombosis identified in the right or left lower extremity. The common femoral, superficial femoral, and popliteal veins are patent and normally compressible bilaterally. The greater saphenous vein and the profunda femoris vein at the junction with the common femoral vein are clear in both legs. The visualized calf veins are patent bilaterally. Soft tissue edema is present in both legs. IMPRESSION: There is no sonographic evidence of deep venous thrombosis identified in the right or left lower extremity. Electronically signed by: Vikram Lopez M.D. 10/04/2017 7:03 AM Dictated Date/Time: 10/04/2017 7:02 AM
[2017-10-04 07:18] LABS: CALCIUM 10.2 mg/dl (8.5-10.1); CREATININE 1.93 mg/dl (0.60-1.20); POTASSIUM 4.2 mmol/L (3.5-5.1)
[2017-10-04] MEDS: DULERA~ORDER AWAITING ACTION SCH ×3 (08:00→23:27)
[2017-10-04] MEDS ORDERED: NON-FORMULARY MEDICATION (Garlic 400 MG) PO SCH (09:00)
[2017-10-04] MEDS: OMEGA-3 (PURIFIED FISH OIL) 1 GM CAP PO SCH ×2 (10:59→20:26)
[2017-10-04] MEDS: PANTOprazole SOD 40 MG TAB PO SCH (10:59)
[2017-10-04] MEDS: ATORVASTATIN 40 MG TAB PO SCH (10:59)
[2017-10-04] MEDS: AMLODIPINE BESYLATE 5 MG TAB PO SCH (11:00)
[2017-10-04] MEDS: METOPROLOL SUCC 50MG EXT REL TAB PO SCH (11:00)
[2017-10-04] MEDS: CLOPIDOGREL BISULFATE 75 MG TAB PO SCH (11:00)
[2017-10-04] MEDS: HEPARIN SOD 5000 UNIT/0.5 ML CARP SQ SCH ×2 (11:01→20:38)
[2017-10-04] MEDS: IPRATROPIUM BROMIDE/ALBUTEROL respimat INH INH SCH ×4 (11:02→20:26)
--- NOTE | 2017-10-04 12:36 | ECHOCARDIOGRAM REPORT ---
*NOTICE TO RECEIVING [employer] This information is strictly Confidential and protected under [place] law. [place] law prohibits you from making any further disclosure of this information unless further disclosure is expressly permitted by the written consent of the person to whom it pertains or is authorized by law. A general authorization for the release of medical or other information is not sufficient for this purpose. Hospital accepts no responsibility if the information is made available to any other person, INCLUDING THE PATIENT. Interpretation Summary * Name: RUBEN SHAIKH Study Date: 10/04/2017 07:02 AM BP: 135/61 mmHg * Patient Location: C.2T\S\S240\S\2 HR: 71 * : 1940 (M/d/yyy) Gender: Female Height: 61 in * Age: 77 yrs Ethnicity: [place] Weight: 109 lb * Ordering Physician: Elliott Pascual * Referring Physician: Self, Referred * Performed By: Angie Hays RCS * * Reason For Study: CHF * BSA: 1.5 m2 * -- Conclusions -- * The left ventricle is normal in size. * There is moderate concentric left ventricular hypertrophy. * There is mild hypokinesis of the inferior and posterior riley of the base with all other wall segments alexa normally * Ejection Fraction = 55-60%. * Aortic valve sclerosis moderate, without significant aortic valvular stenosis. * There is mild mitral annular calcification. * There is no mitral regurgitation noted. Procedure Details * A complete two-dimensional transthoracic echocardiogram was performed (2D, M-mode, Doppler and color flow Doppler). Left Ventricle * The left ventricle is normal in size. * There is moderate concentric left ventricular hypertrophy. * Left ventricular systolic function is normal. * Ejection Fraction = 55-60%. * There is mild hypokinesis of the inferior and posterior riley of the base with all other wall segments alexa normally Right Ventricle * The right ventricle is normal in size and function. Atria * The left atrial size is normal. * Right atrial size is normal. * No ASD detected; PFO is not assessed. Mitral Valve * There is mild mitral annular calcification. * There is no mitral valve stenosis. * There is no mitral regurgitation noted. Tricuspid Valve * The tricuspid valve anatomy is normal. * There is no tricuspid stenosis. * There is trace tricuspid regurgitation. * Doppler findings do not suggest pulmonary hypertension. Aortic Valve * The aortic valve is trileaflet. * Aortic valve sclerosis moderate, without significant aortic valvular stenosis. * No aortic regurgitation is present. Pulmonic Valve * The pulmonic valve is not well visualized. Great Vessels * The aortic root is normal size. Pericardium/Pleural * There is no pericardial effusion. Great Vessels * Normal inferior vena cava diameter and respiratory variation suggests normal central venous pressure. Left Ventricular Diastolic Function * Grade I diastolic dysfunction, (abnormal relaxation pattern). MMode 2D Measurements and Calculations IVSd 1.5 cm IVSs 1.3 cm LVIDd 3.6 cm LVIDs 3.1 cm LVPWd 1.2 cm LVPWs 1.4 cm IVS/LVPW 1.2 FS 14.6 % EDV(Teich) 55.5 ml ESV(Teich) 37.9 ml EF(Teich) 31.7 % EDV(cubed) 47.8 ml ESV(cubed) 29.8 ml EF(cubed) 37.8 % % IVS thick -10.70 % % LVPW thick 14.2 % LV mass(C)d 173.7 grams LV mass(C)dI 119.0 grams/m\S\2 LV mass(C)s 140.9 grams LV mass(C)sI 96.5 grams/m\S\2 SV(Teich) 17.6 ml SI(Teich) 12.1 ml/m\S\2 SV(cubed) 18.1 ml SI(cubed) 12.4 ml/m\S\2 Ao root diam 2.8 cm Ao root area 6.2 cm\S\2 ACS 1.4 cm LA dimension 2.4 cm LA/Ao 0.87 LVOT diam 2.0 cm LVOT area 3.1 cm\S\2 LVAd ap4 27.3 cm\S\2 LVLd ap4 7.4 cm EDV(MOD-sp4) 81.3 ml EDV(sp4-el) 85.1 ml LVAs ap4 19.5 cm\S\2 LVLs ap4 6.6 cm ESV(MOD-sp4) 47.9 ml ESV(sp4-el) 49.3 ml EF(MOD-sp4) 41.0 % EF(sp4-el) 42.0 % LVAd ap2 29.2 cm\S\2 LVLd ap2 7.6 cm EDV(MOD-sp2) 90.5 ml EDV(sp2-el) 94.5 ml LVAs ap2 20.5 cm\S\2 LVLs ap2 7.0 cm ESV(MOD-sp2) 50.1 ml ESV(sp2-el) 51.1 ml EF(MOD-sp2) 44.7 % EF(sp2-el) 45.9 % LVLd %diff 2.7 % EDV(MOD-bp) 86.9 ml LVLs %diff 6.5 % ESV(MOD-bp) 49.5 ml EF(MOD-bp) 43.0 % SV(MOD-sp4) 33.4 ml SI(MOD-sp4) 22.8 ml/m\S\2 SV(MOD-sp2) 40.4 ml SI(MOD-sp2) 27.7 ml/m\S\2 SV(MOD-bp) 37.4 ml SI(MOD-bp) 25.6 ml/m\S\2 SV(sp4-el) 35.8 ml SI(sp4-el) 24.5 ml/m\S\2 SV(sp2-el) 43.4 ml SI(sp2-el) 29.7 ml/m\S\2 Doppler Measurements and Calculations MV E max leonid 40.4 cm/sec MV A max leonid 60.8 cm/sec MV E/A 0.66 MV P1/2t max leonid 96.6 cm/sec MV P1/2t 70.4 msec MVA(P1/2t) 3.1 cm\S\2 MV dec slope 402.0 cm/sec\S\2 MV dec time 0.17 sec PA V2 max 101.8 cm/sec PA max PG 4.1 mmHg
--- NOTE | 2017-10-04 14:23 | Progress Note ---
Internal Med Progress Note Date of Service: October 04, 2017. Provider Documentation: SUBJECTIVE: The patient was seen and examined in the telemetry unit She was admitted yesterday with the shortness of breath and noted to have fluid overload with increasing leg swelling and clinical evidence Has a history of COPD Received 1 dose of Lasix in the ER and has been feeling a lot better since admission Denies any specific symptoms today OBJECTIVE: Vital Signs-as noted below Exam: General-no apparent distress at rest but generally weak Eyes-normal ENT-normal Neck-supple Lungs-decreased breath sounds bilaterally with occasional wheezing Heart-regular, no murmur Abdomen-benign soft , nontender nontender and bowel sounds present Extremities-trace to no edema Neuro-alert, awake and oriented 3 Generally weak, no focal neuro deficit Lab data as noted below. ASSESSMENT & PLAN: This is a 77-year-old female who presents with shortness of breath and lower extremity edema. Fluid Overload :Can not definitely define Systolic and or Diastolic heart failure Presented with Shortness of breath and lower extremity edema with H/O Edema . Received a dose of Lasix in the ER. Echo done in 2014 show normal EF with grade 1 diastolic dysfunction, Repeat ECHO:: * The left ventricle is normal in size. * There is moderate concentric left ventricular hypertrophy. * There is mild hypokinesis of the inferior and posterior riley of the base with all other wall segments alexa normally * Ejection Fraction = 55-60%. * Aortic valve sclerosis moderate, without significant aortic valvular stenosis. * There is mild mitral annular calcification. * There is no mitral regurgitation noted. Possibly right-sided heart failure from severe chronic obstructive pulmonary disease, Clinically a lot better Will not give any more Lasix routinely Severe chronic obstructive pulmonary disease, Chronic respiratory failure on 2 liters oxygen at nighttime. Continue home inhalers and nebs p.r.n. Currently, no wheezing. We will monitor. History of peripheral vascular disease,on Plavix and on statin. History of coronary artery disease, status post stents, on statin, Plavix and beta flor. We will follow echocardiogram . History of chronic kidney disease, stage IV. Baseline creatinine of around 2. Presented with creatinine of 1.9. Received a dose of Lasix. We will follow the labs. History of hypercalcemia. The patient got admitted multiple times for hypercalcemia in the past and workup was negative. Vitamin D was stopped. Today, calcium is 9.6 and was advised to drink lot of fluids. Urinary retention, status post Perez catheter. We will consult urology in a.m. History of hypertension. Continue amlodipine, Toprol-XL and Hytrin. We will monitor the blood pressure. Deep venous thrombosis prophylaxis, SCDs and heparin subQ. DISPOSITION Discharge in a day or two Vital Signs: Date Time Temp Pulse Resp B/P (MAP) Pulse Ox O2 Delivery O2 Flow Rate FiO2 10/04/17 12:05 36.8 79 18 135/72 (93) 96 10/04/17 12:00 Nasal Cannula 2.0 10/04/17 08:00 Nasal Cannula 2.0 10/04/17 07:42 36.8 98 18 124/72 (89) 96 10/04/17 06:56 96 20 98 Nasal Cannula 2.0 10/04/17 04:02 36.9 78 16 135/61 (85) 100 4.0 10/04/17 04:00 96 Nasal Cannula 2.0 10/04/17 01:48 36.8 83 24 160/67 96 Nasal Cannula 2.0 10/04/17 00:59 91 20 154/64 98 Nasal Cannula 2.0 10/03/17 23:18 96 18 148/60 96 Nasal Cannula 2.0 10/03/17 22:13 96 26 99 Nasal Cannula 2.0 10/03/17 22:05 Nasal Cannula 2.0 10/03/17 22:03 93 Nasal Cannula 2.0 10/03/17 21:28 Nasal Cannula 2.0 10/03/17 21:23 36.8 98 28 154/65 97 Room Air Lab Results: Results Past 24 Hours Test 10/03/17 21:37 10/03/17 22:15 10/03/17 22:45 10/04/17 06:24 Range/Units Bedside Glucose 136 70-90 mg/dl White Blood Count 7.16 6.51 4.8-10.8 K/uL Red Blood Count 2.97 2.92 4.2-5.4 M/uL Hemoglobin 9.6 9.5 12.0-16.0 g/dL Hematocrit 29.3 28.8 37-47 % Mean Corpuscular Volume 98.7 98.6 80-100 fL Mean Corpuscular Hemoglobin 32.3 32.5 25-34 pg Mean Corpuscular Hemoglobin Concent 32.8 33.0 32-36 g/dl Platelet Count 172 152 130-400 K/uL Mean Platelet Volume 9.6 9.1 7.4-10.4 fL Neutrophils (%) (Auto) 71.8 65.0 % Lymphocytes (%) (Auto) 17.6 23.2 % Monocytes (%) (Auto) 6.7 6.8 % Eosinophils (%) (Auto) 3.2 4.3 % Basophils (%) (Auto) 0.4 0.5 % Neutrophils # (Auto) 5.14 4.24 1.4-6.5 K/uL Lymphocytes # (Auto) 1.26 1.51 1.2-3.4 K/uL Monocytes # (Auto) 0.48 0.44 0.11-0.59 K/uL Eosinophils # (Auto) 0.23 0.28 0-0.5 K/uL Basophils # (Auto) 0.03 0.03 0-0.2 K/uL RDW Standard Deviation 50.8 51.1 36.4-46.3 fL RDW Coefficient of Variation 14.3 14.1 11.5-14.5 % Immature Granulocyte % (Auto) 0.3 0.2 % Immature Granulocyte # (Auto) 0.02 0.01 0.00-0.02 K/uL Prothrombin Time 10.2 9.0-12.0 SECONDS Prothromb Time International Ratio 1.0 0.9-1.1 Activated Partial Thromboplast Time 23.3 21.0-31.0 SECONDS Partial Thromboplastin Ratio 0.9 Sodium Level 140 144 136-145 mmol/L Potassium Level 4.0 4.2 3.5-5.1 mmol/L Chloride Level 107 112 98-107 mmol/L Carbon Dioxide Level 29 29 21-32 mmol/L Anion Gap 5.0 3.0 3-11 mmol/L Blood Urea Nitrogen 25 26 7-18 mg/dl Creatinine 1.90 1.93 0.60-1.20 mg/dl Estimated GFR () 28.6 28.0 Estimated GFR (Non- 24.6 24.2 BUN/Creatinine Ratio 12.9 13.4 10-20 Random Glucose 116 100 70-99 mg/dl Calcium Level 9.6 10.2 8.5-10.1 mg/dl Magnesium Level 1.8 1.9 1.8-2.4 mg/dl Total Bilirubin 0.3 0.2-1 mg/dl Aspartate Amino Transf (AST/SGOT) 26 15-37 U/L Alanine Aminotransferase (ALT/SGPT) 43 12-78 U/L Alkaline Phosphatase 114 45-117 U/L Troponin I < 0.015 0-0.045 ng/ml Pro-B-Type Natriuretic Peptide 3281 0-1800 pg/ml Total Protein 6.2 6.4-8.2 gm/dl Albumin 3.2 3.4-5.0 gm/dl Globulin 3.0 2.5-4.0 gm/dl Albumin/Globulin Ratio 1.1 0.9-2 Thyroid Stimulating Hormone (TSH) 0.643 0.300-4.500 uIu/ml Urine Color YELLOW Urine Appearance CLEAR CLEAR Urine pH 7.0 4.5-7.5 Urine Specific [place] 1.006 1.000-1.030 Urine Protein 1+ NEG Urine Glucose (UA) NEG NEG Urine Ketones NEG NEG Urine Occult Blood NEG NEG Urine Nitrite NEG NEG Urine Bilirubin NEG NEG Urine Urobilinogen NEG NEG Urine Leukocyte Esterase NEG NEG Urine WBC (Auto) 0 0-5 /hpf Urine RBC (Auto) 0-4 0-4 /hpf Urine Hyaline Casts (Auto) 0 0-5 /lpf Urine Epithelial Cells (Auto) 0-5 0-5 /lpf Urine Bacteria (Auto) NEG NEG Est Creatinine Clear Calc Drug Dose 15.5 ml/min Test 10/04/17 07:16 10/04/17 11:30 Range/Units Bedside Glucose 96 118 70-90 mg/dl Microbiology Results 10/03/17 Blood Culture, Received Pending 10/03/17 Blood Culture, Received Pending
--- NOTE | 2017-10-04 14:31 | Urology Consultation ---
History General Date of Service: October 04, 2017. Chief Complaint: urinary retention Primary Care Physician: Dong Baumann M.D.([facility]NE[facility]) Pt seen a urologist before?: No History of Present Illness 77 yo female admitted for CHF vs COPD exacerbation. consulted for urinary retention. Garcia currently in place draining clear, yellow urine. Per ED notes, "a significant amount of urine was drained." The pt reports developing difficulty voiding and dribbling yesterday. Prior to yesterday, she denies any hx of difficulty voiding or UTI. Denies dysuria or hematuria. She has never seen a urologist in the past. Laboratory Last 24 Hours Test 10/03/17 21:37 10/03/17 22:15 10/03/17 22:45 10/04/17 06:24 Bedside Glucose 136 mg/dl White Blood Count 7.16 K/uL 6.51 K/uL Red Blood Count 2.97 M/uL 2.92 M/uL Hemoglobin 9.6 g/dL 9.5 g/dL Hematocrit 29.3 % 28.8 % Mean Corpuscular Volume 98.7 fL 98.6 fL Mean Corpuscular Hemoglobin 32.3 pg 32.5 pg Mean Corpuscular Hemoglobin Concent 32.8 g/dl 33.0 g/dl Platelet Count 172 K/uL 152 K/uL Mean Platelet Volume 9.6 fL 9.1 fL Neutrophils (%) (Auto) 71.8 % 65.0 % Lymphocytes (%) (Auto) 17.6 % 23.2 % Monocytes (%) (Auto) 6.7 % 6.8 % Eosinophils (%) (Auto) 3.2 % 4.3 % Basophils (%) (Auto) 0.4 % 0.5 % Neutrophils # (Auto) 5.14 K/uL 4.24 K/uL Lymphocytes # (Auto) 1.26 K/uL 1.51 K/uL Monocytes # (Auto) 0.48 K/uL 0.44 K/uL Eosinophils # (Auto) 0.23 K/uL 0.28 K/uL Basophils # (Auto) 0.03 K/uL 0.03 K/uL RDW Standard Deviation 50.8 fL 51.1 fL RDW Coefficient of Variation 14.3 % 14.1 % Immature Granulocyte % (Auto) 0.3 % 0.2 % Immature Granulocyte # (Auto) 0.02 K/uL 0.01 K/uL Prothrombin Time 10.2 SECONDS Prothromb Time International Ratio 1.0 Activated Partial Thromboplast Time 23.3 SECONDS Partial Thromboplastin Ratio 0.9 Sodium Level 140 mmol/L 144 mmol/L Potassium Level 4.0 mmol/L 4.2 mmol/L Chloride Level 107 mmol/L 112 mmol/L Carbon Dioxide Level 29 mmol/L 29 mmol/L Anion Gap 5.0 mmol/L 3.0 mmol/L Blood Urea Nitrogen 25 mg/dl 26 mg/dl Creatinine 1.90 mg/dl 1.93 mg/dl Estimated GFR () 28.6 28.0 Estimated GFR (Non- 24.6 24.2 BUN/Creatinine Ratio 12.9 13.4 Random Glucose 116 mg/dl 100 mg/dl Calcium Level 9.6 mg/dl 10.2 mg/dl Magnesium Level 1.8 mg/dl 1.9 mg/dl Total Bilirubin 0.3 mg/dl Aspartate Amino Transf (AST/SGOT) 26 U/L Alanine Aminotransferase (ALT/SGPT) 43 U/L Alkaline Phosphatase 114 U/L Troponin I < 0.015 ng/ml Pro-B-Type Natriuretic Peptide 3281 pg/ml Total Protein 6.2 gm/dl Albumin 3.2 gm/dl Globulin 3.0 gm/dl Albumin/Globulin Ratio 1.1 Thyroid Stimulating Hormone (TSH) 0.643 uIu/ml Urine Color YELLOW Urine Appearance CLEAR Urine pH 7.0 Urine Specific [place] 1.006 Urine Protein 1+ Urine Glucose (UA) NEG Urine Ketones NEG Urine Occult Blood NEG Urine Nitrite NEG Urine Bilirubin NEG Urine Urobilinogen NEG Urine Leukocyte Esterase NEG Urine WBC (Auto) 0 /hpf Urine RBC (Auto) 0-4 /hpf Urine Hyaline Casts (Auto) 0 /lpf Urine Epithelial Cells (Auto) 0-5 /lpf Urine Bacteria (Auto) NEG Est Creatinine Clear Calc Drug Dose 15.5 ml/min Test 10/04/17 07:16 10/04/17 11:30 Bedside Glucose 96 mg/dl 118 mg/dl Problem List Medical Problems: (1) Acute kidney injury Status: Acute (2) Chronic obstructive pulmonary disease Status: Acute (3) COPD (chronic obstructive pulmonary disease) Status: Acute (4) Eczematous dermatitis Status: Acute (5) Fluid overload Status: Acute (6) Heart failure Status: Acute (7) Hypermagnesemia Status: Acute (8) Hyperphosphatemia Status: Acute (9) Respiratory distress Status: Acute (10) Urinary retention Status: Acute Past History COPD, coronary artery disease, diabetes, GERD, hypertension, renal disease ( stage IV ), other (hypercalcemia, proteinuria, peripheral edema ) Past Surgical History: angioplasty with stent (coronary artery), hysterectomy, other (aortofemoral bypass graft, left carotid endarterectomy, right femoral artery aneurysm repair, left carotid stent placement, laser procedure for the eye ) Family History Cardiac disorder FATHER Social History Hx Tobacco Use In Past Year?: No Smoking: quit greater than 1 year (quit in 2000, smoked 1/2 pack per day x 40 years) Alcohol: never Drug use: none Marital status: Housing status: lives alone Immunizations History of Influenza Vaccine: Yes Influenza Vaccine Date: Mar 09, 2016 History of Tetanus Vaccine?: Yes Tetanus Immunization Date: Jan 04, 2008 History of Pneumococcal: Yes Pneumococcal Date: Aug 06, 2014 History of MDRO No Allergies Coded Allergies: Codeine (Verified Allergy, Mild, 06/09/16) ABD DISTRESS Amoxicillin (Verified Allergy, Unknown, unknown, 08/14/16) Aspirin (Verified Allergy, Unknown, UNKNOWN, 06/09/16) PER HER DOCTOR, SHE IS NOT SUPPOSE TO TAKE IT BECAUSE OF HER KIDNEYS Bacitracin (Verified Allergy, Unknown, Rash, 09/26/17) Isosorbide Nitrate (Verified Allergy, Unknown, unknown, 08/14/16) Neomycin (Verified Allergy, Unknown, Rash, 09/26/17) Polymyxin B (Verified Allergy, Unknown, Rash, 09/26/17) Medications Home Medications: Home Meds and Scripts Medications Dose Route/Sig Max Daily Dose Days Date Category Dose Instructions Oxygen Gas 2 Liters NA UD 09/26/17 Reported USE DOING HOURS OF SLEEP AND WITH PERIODS OF EXERTION Garlic 400 Mg Tab 400 Mg PO DAILY 09/26/17 Reported Tylenol W/Codeine #3 (Acetaminophen/Codeine Phosphate) 300 Mg/30 Mg Tab 1 Tab PO BID PRN 09/26/17 Reported Protonix (Pantoprazole Sodium) 20 Mg Tab 20 Mg PO QAM 09/26/17 Reported TAKE THIS MEDICATION ONCE DAILY 30 MINUTES BEFORE FIRST MEAL OF THE DAY Amlodipine Besylate 5 Mg Tab 5 Mg PO DAILY 09/26/17 Reported Metoprolol Succinate ER (Metoprolol Succinate) 100 Mg Tabcr 100 Mg PO DAILY 09/26/17 Reported Starlix (Nateglinide) 60 Mg Tab 60 Mg PO AC 09/26/17 Reported Clopidogrel (Clopidogrel Bisulfate) 75 Mg Tab 75 Mg PO DAILY 09/26/17 Reported Hytrin (Terazosin HCl) 2 Mg Cap 2 Mg PO DAILY 09/26/17 Reported Dulera 200/5 Mcg (Mometasone Furoate-Formoterol) 1 Aer Aer 2 Puffs INH BID 09/26/17 Reported Duoneb (Ipratropium-Albuterol) 3 Ml Nebu 1 Vial NEB QID PRN 04/01/17 Reported Combivent Respimat (Ipratropium-Albuterol) 1 Aer Aer 1 Puff INH QID 04/01/17 Reported Lipitor (Atorvastatin Calcium) 80 Mg Tab 80 Mg PO DAILY 05/02/15 Reported [place]-3 (Fish Oil) 1 Ea Cap 1,000 Mg PO BID 06/18/13 Reported Nitrostat (Nitroglycerin) 0.4 Mg Tab 0.4 Mg UT UD PRN 06/18/[address] ONE TABLET UNDER THE TONGUE EVERY 5 MINUTES FOR UP TO 3 DOSES OVER 15 MINUTES IF NEEDED FOR CHEST PAIN Tylenol (Acetaminophen) 325 Mg Tab 650 Mg PO Q4H PRN 06/18/13 Reported Inpatient Medications: Current Inpatient Medications Medications (Trade) Dose Ordered Sig/Jennifer Route Start Time Stop Time Status Last Admin Dose Admin Heparin Sodium (Porcine) (Heparin Sq 5000 Unit/0.5ml) 5,000 unit Q12 SQ 10/04/17 09:00 11/03/17 08:59 10/04/17 11:01 5,000 UNIT Al Hydrox/Mg Hydrox/Simethicone (Maalox Max Susp) 15 ml Q4H PRN PO 10/04/17 00:30 11/03/17 00:29 Ondansetron HCl (Zofran Inj) 4 mg Q6H PRN IV 10/04/17 00:30 11/03/17 00:29 Nitroglycerin (Nitrostat Tab) 0.4 mg UD PRN SL 10/04/17 00:30 11/03/17 00:29 Polyethylene (Miralax Powder Packet) 17 gm DAILY PRN PO 5/1/18 00:30 11/03/17 00:29 Acetaminophen (Tylenol Tab) 650 mg Q4H PRN PO 10/04/17 00:30 11/03/17 00:29 Amlodipine Besylate (Norvasc Tab) 5 mg DAILY PO 10/04/17 09:00 11/03/17 08:59 10/04/17 11:00 5 MG Atorvastatin Calcium (Lipitor Tab) 80 mg DAILY PO 10/04/17 09:00 11/03/17 08:59 10/04/17 10:59 80 MG Clopidogrel Bisulfate (plAVix TAB) 75 mg DAILY PO 10/04/17 09:00 11/03/17 08:59 10/04/17 11:00 75 MG Fish Oil ([place]-3 (Purified Fish Oil) Cap) 1 gm BID PO 10/04/17 09:00 11/03/17 08:59 10/04/17 10:59 1 GM Albuterol/ Ipratropium (Combivent Respimat Inh) 1 puffs QID INH 10/04/17 09:00 11/03/17 08:59 10/04/17 12:27 1 PUFFS Albuterol/ Ipratropium (Duoneb) 3 ml QID PRN INH 10/04/17 00:30 11/03/17 00:29 10/04/17 06:54 3 ML Terazosin HCl (Hytrin Cap) 2 mg HS PO 10/04/17 21:00 11/03/17 20:59 Metoprolol Succinate (Toprol Xl Tab) 100 mg DAILY PO 10/04/17 09:00 11/03/17 08:59 10/04/17 11:00 100 MG Miscellaneous Information (Order Awaiting Action) 1 ea QS N/A 10/04/17 08:00 11/03/17 07:59 Pantoprazole Sodium (Protonix Tab) 40 mg QAM PO 10/04/17 09:00 11/03/17 08:59 10/04/17 10:59 40 MG Insulin Aspart (novoLOG ASPART) SLIDING SCALE G... ACHS SC 10/04/17 07:00 11/03/17 06:59 10/04/17 12:27 2 UNITS Glucose (Glucose 40% Gel) 15-30 GRAMS 15 GRAMS... UD PRN PO 10/04/17 01:15 11/03/17 01:14 Glucose (Glucose Chew Tab) 4-8 Tablets 4 Tabl... UD PRN PO 10/04/17 01:15 11/03/17 01:14 Dextrose (Dextrose 50% 50ML Syringe) 25-50ML OF 50% DW IV FOR... UD PRN IV 10/04/17 01:15 11/03/17 01:14 Glucagon (Glucagon Inj) 1 mg UD PRN SQ 10/04/17 01:15 11/03/17 01:14 Review of Systems Review of Systems Constitutional: No fever, No chills Eyes: No double vision Neurological: No dizzy Endocrine: No excessive thirst Gastrointestinal: No abdominal pain, No nausea, No vomiting Cardiovascular: No chest pain Respiratory: + shortness of breath (chronic ) Skin: No rash Musculoskeletal: + arthritis Female : + urinary retention, No blood in urine Physical Exam Vital Signs: Vital Signs Past 12 Hours Date Time Temp Pulse Resp B/P (MAP) Pulse Ox O2 Delivery O2 Flow Rate FiO2 10/04/17 12:05 36.8 79 18 135/72 (93) 96 10/04/17 12:00 Nasal Cannula 2.0 10/04/17 08:00 Nasal Cannula 2.0 10/04/17 07:42 36.8 98 18 124/72 (89) 96 10/04/17 06:56 96 20 98 Nasal Cannula 2.0 10/04/17 04:02 36.9 78 16 135/61 (85) 100 4.0 10/04/17 04:00 96 Nasal Cannula 2.0 Physical Exam: General Appearance: no apparent distress Eyes: bilateral eyes normal inspection ENT: hearing grossly normal Neck: no JVD Respiratory/Chest: no respiratory distress, no accessory muscle use, + pertinent finding (nasal cannula O2 in place ) Cardiovascular: no JVD Extremities: normal inspection Neurologic/Psychiatric: alert, normal mood/affect, oriented x 3 Skin: normal color Assessment & Plan Assessment & Plan A/P: Urinary retention AFVSS. Will check a UC&S. Will leave garcia catheter in place for now. Plan for a trial of void prior to d/ c home. If pt fails, replace garcia catheter, and plan to leave in place for 10 days; outpatient trial of void at that time. Thanks for the consult. Will continue to follow along with primary service.
[2017-10-05] VITALS (9 sets, daily range): BP systolic 124–141; BP diastolic 55–78; PULSE 63–76; TEMP 36.6–37.2; O2SAT 91–99; Ht 157.5 cm; Wt 42.0 kg
[2017-10-05 06:54] LABS: BASO % 0.7 %; BASO ABS # 0.04 K/uL (0-0.2); EOS % 5.6 %; EOS ABS # 0.33 K/uL (0-0.5); HEMATOCRIT 29.6 % (37-47); HEMOGLOBIN 9.6 g/dL (12.0-16.0); IG# 0.01 K/uL (0.00-0.02); LYMPH % 25.3 %; LYMPH ABS # 1.48 K/uL (1.2-3.4); MEAN CORPUSCULAR HEMOGLOBIN 32.1 pg (25-34); MEAN CORPUSCULAR HGB CONC 32.4 g/dl (32-36); MEAN PLATELET VOLUME 9.6 fL (7.4-10.4); MONO % 7.5 %; MONO ABS # 0.44 K/uL (0.11-0.59); NEUT % 60.7 %; NEUT ABS # 3.55 K/uL (1.4-6.5); PLATELET COUNT 170 K/uL (130-400); RED CELL DISTRIBUTION WIDTH CV 13.9 % (11.5-14.5); RED CELL DISTRIBUTION WIDTH SD 49.9 fL (36.4-46.3); WHITE BLOOD COUNT 5.85 K/uL (4.8-10.8)
[2017-10-05 07:27] LABS: CREATININE 1.84 mg/dl (0.60-1.20); POTASSIUM 3.7 mmol/L (3.5-5.1)
[2017-10-05] MEDS: DULERA~ORDER AWAITING ACTION SCH ×2 (08:00→13:19)
[2017-10-05] MEDS: ALBUT/IPRATROP 3MG/0.5MG NEB 3 ML VIAL INH PRN ×2 (08:10→23:58)
--- NOTE | 2017-10-05 08:37 | DIAGNOSTIC IMAGING REPORT ---
CHEST ONE VIEW PORTABLE CLINICAL HISTORY: hypoxia, ?aspiration COMPARISON STUDY: Chest radiograph October 03, 2017. FINDINGS: Emphysema is noted. There is no pneumothorax or pleural effusion. There is no lobar consolidation. Pulmonary vascularity is normal. A 1.7 cm nodular density within the right upper lung was not evident on previous exam. Vascular stent within the left neck is noted. Cardiomediastinal silhouette is stable. This calcific tendinitis of the left rotator cuff. IMPRESSION: 1.7 cm right upper lobe nodular density. This may reflect a small focus of airspace disease or pulmonary nodule. PA and lateral chest radiographs in one month to ensure resolution are recommended. Electronically signed by: Jean Paul Pagan M.D. 10/05/2017 8:35 AM Dictated Date/Time: 10/05/2017 8:29 AM
[2017-10-05] MEDS: ATORVASTATIN 40 MG TAB PO SCH (08:55)
[2017-10-05] MEDS: OMEGA-3 (PURIFIED FISH OIL) 1 GM CAP PO SCH ×2 (08:55→20:42)
[2017-10-05] MEDS: PANTOprazole SOD 40 MG TAB PO SCH (08:56)
[2017-10-05] MEDS: IPRATROPIUM BROMIDE/ALBUTEROL respimat INH INH SCH ×4 (08:56→20:43)
[2017-10-05] MEDS: CLOPIDOGREL BISULFATE 75 MG TAB PO SCH (08:56)
[2017-10-05] MEDS: METOPROLOL SUCC 50MG EXT REL TAB PO SCH (08:56)
[2017-10-05] MEDS: AMLODIPINE BESYLATE 5 MG TAB PO SCH (08:56)
[2017-10-05] MEDS: HEPARIN SOD 5000 UNIT/0.5 ML CARP SQ SCH ×2 (08:58→20:47)
[2017-10-05] MEDS: INSULIN ASPART 100 UNITS/ML 3 ML PEN SC SCH ×4 (08:59→21:39)
[2017-10-05] MEDS ORDERED: CARBOHYDRATES FOR HYPOGLYCEMIA PO ONE (11:30)
[2017-10-05] MEDS ORDERED: CARBOHYDRATES FOR HYPOGLYCEMIA PO PRN (12:00)
--- NOTE | 2017-10-05 12:59 | Progress Note ---
Internal Med Progress Note Date of Service: October 05, 2017. Provider Documentation: SUBJECTIVE: The patient was seen and examined in the telemetry unit She was admitted yesterday with the shortness of breath and noted to have fluid overload with increasing leg swelling and clinical evidence Has a history of COPD Received 1 dose of Lasix in the ER and has been feeling a lot better since admission Denies any specific symptoms today /: has had some chest tightness with SOB this AM following use of Durela and fransico=is happened before CXR -no acute changes Speech evaluation ordered Pt is feeling much better OBJECTIVE: Vital Signs-as noted below Exam: General-no apparent distress at rest but generally weak Eyes-normal ENT-normal Neck-supple Lungs-decreased breath sounds bilaterally with occasional wheezing Heart-regular, no murmur Abdomen-benign soft , nontender nontender and bowel sounds present Extremities-trace to no edema Neuro-alert, awake and oriented 3 Generally weak, no focal neuro deficit Lab data as noted below. ASSESSMENT & PLAN: This is a 77-year-old female who presents with shortness of breath and lower extremity edema. Fluid Overload :Can not definitely define Systolic and or Diastolic heart failure Presented with Shortness of breath and lower extremity edema with H/O Edema . Received a dose of Lasix in the ER. Echo done in 2014 show normal EF with grade 1 diastolic dysfunction, Repeat ECHO:: * The left ventricle is normal in size. * There is moderate concentric left ventricular hypertrophy. * There is mild hypokinesis of the inferior and posterior riley of the base with all other wall segments alexa normally * Ejection Fraction = 55-60%. * Aortic valve sclerosis moderate, without significant aortic valvular stenosis. * There is mild mitral annular calcification. * There is no mitral regurgitation noted. Possibly right-sided heart failure from severe chronic obstructive pulmonary disease, Clinically a lot better Will not give any more Lasix routinely SOB following the use of Durela CXR -no acute changes Speech evaluation ordered Pt is feeling much better during my exam Severe chronic obstructive pulmonary disease, Chronic respiratory failure on 2 liters oxygen at nighttime. Continue home inhalers and nebs p.r.n. Currently, no wheezing. We will monitor. History of peripheral vascular disease,on Plavix and on statin. History of coronary artery disease, status post stents, on statin, Plavix and beta flor. We will follow echocardiogram . History of chronic kidney disease, stage IV. Baseline creatinine of around 2. Presented with creatinine of 1.9. Received a dose of Lasix. Kidney function is improving History of hypercalcemia. The patient got admitted multiple times for hypercalcemia in the past and workup was negative. Vitamin D was stopped. Today, calcium is 9.6 and was advised to drink lot of fluids. Urinary retention, status post Perez catheter. We will consult urology in a.m. History of hypertension. Continue amlodipine, Toprol-XL and Hytrin. We will monitor the blood pressure. Deep venous thrombosis prophylaxis, SCDs and heparin subQ. DISPOSITION Discharge in a day or two Vital Signs: Date Time Temp Pulse Resp B/P (MAP) Pulse Ox O2 Delivery O2 Flow Rate FiO2 10/05/17 12:00 Nasal Cannula 2.0 10/05/17 11:41 36.6 72 22 131/65 (87) 97 Nasal Cannula 2.0 10/05/17 08:10 76 24 91 Nasal Cannula 2.0 10/05/17 08:00 Nasal Cannula 2.0 10/05/17 07:10 36.7 64 124/78 (93) 99 Nasal Cannula 2.0 10/05/17 05:00 36.7 63 21 130/56 (80) 96 Nasal Cannula 2.0 10/05/17 04:00 Nasal Cannula 2.0 10/04/17 23:59 96 Nasal Cannula 2.0 10/04/17 23:50 71 24 97 Nasal Cannula 2.0 10/04/17 23:49 36.5 71 28 153/94 (113) 97 Nasal Cannula 2.0 10/04/17 22:00 96 Nasal Cannula 2.0 10/04/17 19:51 36.9 74 20 131/52 (78) 96 10/04/17 16:00 Nasal Cannula 2.0 10/04/17 15:38 37.4 71 20 132/43 (72) 96 Room Air Lab Results: Results Past 24 Hours Test 10/04/17 16:03 10/04/17 20:07 10/05/17 06:27 10/05/17 11:29 Range/Units Bedside Glucose 101 95 54 70-90 mg/dl White Blood Count 5.85 4.8-10.8 K/uL Red Blood Count 2.99 4.2-5.4 M/uL Hemoglobin 9.6 12.0-16.0 g/dL Hematocrit 29.6 37-47 % Mean Corpuscular Volume 99.0 80-100 fL Mean Corpuscular Hemoglobin 32.1 25-34 pg Mean Corpuscular Hemoglobin Concent 32.4 32-36 g/dl Platelet Count 170 130-400 K/uL Mean Platelet Volume 9.6 7.4-10.4 fL Neutrophils (%) (Auto) 60.7 % Lymphocytes (%) (Auto) 25.3 % Monocytes (%) (Auto) 7.5 % Eosinophils (%) (Auto) 5.6 % Basophils (%) (Auto) 0.7 % Neutrophils # (Auto) 3.55 1.4-6.5 K/uL Lymphocytes # (Auto) 1.48 1.2-3.4 K/uL Monocytes # (Auto) 0.44 0.11-0.59 K/uL Eosinophils # (Auto) 0.33 0-0.5 K/uL Basophils # (Auto) 0.04 0-0.2 K/uL RDW Standard Deviation 49.9 36.4-46.3 fL RDW Coefficient of Variation 13.9 11.5-14.5 % Immature Granulocyte % (Auto) 0.2 % Immature Granulocyte # (Auto) 0.01 0.00-0.02 K/uL Sodium Level 142 136-145 mmol/L Potassium Level 3.7 3.5-5.1 mmol/L Chloride Level 109 98-107 mmol/L Carbon Dioxide Level 29 21-32 mmol/L Anion Gap 4.0 3-11 mmol/L Blood Urea Nitrogen 30 7-18 mg/dl Creatinine 1.84 0.60-1.20 mg/dl Est Creatinine Clear Calc Drug Dose 15.7 ml/min Estimated GFR () 29.7 Estimated GFR (Non- 25.6 BUN/Creatinine Ratio 16.2 10-20 Random Glucose 77 70-99 mg/dl Calcium Level 10.0 8.5-10.1 mg/dl Magnesium Level 1.9 1.8-2.4 mg/dl Microbiology Results 10/05/17 Urine Culture, Received Pending
[2017-10-05] MEDS: BUDESONIDE/FORMOTEROL FUMARATE 160/4.5 60 PUFFS/INHALER INH SCH (20:43)
[2017-10-06 07:06] VITALS: BP 138/58; PULSE 69; TEMP 36.8; O2SAT 93
[2017-10-06 07:35] LABS: BASO % 0.7 %; BASO ABS # 0.04 K/uL (0-0.2); EOS % 4.2 %; EOS ABS # 0.26 K/uL (0-0.5); HEMATOCRIT 29.3 % (37-47); HEMOGLOBIN 10.1 g/dL (12.0-16.0); IG# 0.01 K/uL (0.00-0.02); LYMPH % 23.2 %; LYMPH ABS # 1.42 K/uL (1.2-3.4); MEAN CELL VOLUME 98.3 fL (80-100); MEAN CORPUSCULAR HEMOGLOBIN 33.9 pg (25-34); MEAN CORPUSCULAR HGB CONC 34.5 g/dl (32-36); MEAN PLATELET VOLUME 9.7 fL (7.4-10.4); MONO % 7.8 %; MONO ABS # 0.48 K/uL (0.11-0.59); NEUT % 63.9 %; NEUT ABS # 3.92 K/uL (1.4-6.5); PLATELET COUNT 187 K/uL (130-400); RED CELL DISTRIBUTION WIDTH CV 13.7 % (11.5-14.5); RED CELL DISTRIBUTION WIDTH SD 48.9 fL (36.4-46.3); WHITE BLOOD COUNT 6.13 K/uL (4.8-10.8)
[2017-10-06] MEDS: AMLODIPINE BESYLATE 5 MG TAB PO SCH (07:58)
[2017-10-06] MEDS: CLOPIDOGREL BISULFATE 75 MG TAB PO SCH (07:59)
[2017-10-06] MEDS: ATORVASTATIN 40 MG TAB PO SCH (07:59)
[2017-10-06] MEDS: PANTOprazole SOD 40 MG TAB PO SCH (07:59)
[2017-10-06] MEDS: OMEGA-3 (PURIFIED FISH OIL) 1 GM CAP PO SCH (07:59)
[2017-10-06] MEDS: METOPROLOL SUCC 50MG EXT REL TAB PO SCH (07:59)
[2017-10-06] MEDS: BUDESONIDE/FORMOTEROL FUMARATE 160/4.5 60 PUFFS/INHALER INH SCH (08:00)
[2017-10-06] MEDS: IPRATROPIUM BROMIDE/ALBUTEROL respimat INH INH SCH ×2 (08:00→13:52)
[2017-10-06 08:01] LABS: CALCIUM 9.3 mg/dl (8.5-10.1); CREATININE 1.88 mg/dl (0.60-1.20)
[2017-10-06] MEDS: HEPARIN SOD 5000 UNIT/0.5 ML CARP SQ SCH (08:55)
[2017-10-06] MEDS: INSULIN ASPART 100 UNITS/ML 3 ML PEN SC SCH ×2 (08:55→13:54)
[2017-10-06] MEDS ORDERED: BISACODYL 10 MG SUPP PR STA (08:59)
--- NOTE | 2017-10-06 10:24 | Clinical Documentation Query ---
CLINICAL DOCUMENTATION QUERY QUERY 1 OF 2 77 yo female with history of CKD 4 admitted with SOB and peripheral edema. Patient was treated with Lasix 40mg IV in the ED. Echo shows moderate concentric left ventricular hypertrophy and EF = 55-60%. In your clinical opinion is this patient being managed for: ( ) Acute diastolic CHF, resolved ( ) Not Agree ( ) Other explanation of clinical findings (Please Explain. If no explanation given, this would be considered a no response.) ( + ) Unable to determine Please see the progress note ( ) Need to Discuss (Please call CDS via extension or qliq. If no interaction occurs this is considered a no response.) The medical record reflects the following clinical findings, treatment, and risk factors. Clinical Indicators: As above Treatment: Lasix 40mg IV, Echo, O2 Risk Factors: Age, CKD 4, HTN QUERY 2 OF 2 Patient's BMI = 16 In your clinical opinion is this patient being managed for: ( + ) Cachexia ( ) Not Agree ( ) Other explanation of clinical findings (Please Explain. If no explanation given, this would be considered a no response.) ( ) Unable to determine ( ) Need to Discuss (Please call CDS via extension or qliq. If no interaction occurs this is considered a no response.) The medical record reflects the following clinical findings, treatment, and risk factors. Clinical Indicators: As above Treatment: Dietary consult Risk Factors: Age, female, COPD Please clarify and document your clinical opinion in the progress notes and discharge summary. Terms such as "probable", "suspected", "likely", "questionable", "possible", or "still to be ruled out" are acceptable. IF IN AGREEMENT, YOU MUST DOCUMENT ABOVE DIAGNOSTIC STATEMENT IN DAILY PROGRESS NOTES AND DISCHARGE SUMMARY. This document is not part of the patient's record. Thank You, Lizeth Gross RN [phone]
--- NOTE | 2017-10-06 10:44 | Progress Note ---
Internal Med Progress Note Date of Service: October 06, 2017. Provider Documentation: SUBJECTIVE: The patient was seen and examined in the telemetry unit She was admitted yesterday with the shortness of breath and noted to have fluid overload with increasing leg swelling and clinical evidence Has a history of COPD Received 1 dose of Lasix in the ER and has been feeling a lot better since admission Denies any specific symptoms today 5: has had some chest tightness with SOB this AM following use of Durela and fransico=is happened before CXR -no acute changes Speech evaluation ordered Pt is feeling much better 10/06: Clinically a lot better OOB in a chair without any SOB and or on any oxygen OBJECTIVE: Vital Signs-as noted below Exam: General-no apparent distress at rest Eyes-normal ENT-normal Neck-supple Lungs-decreased breath sounds bilaterally with occasional wheezing Heart-regular, no murmur Abdomen-benign soft , nontender nontender and bowel sounds present Extremities-trace to no edema Neuro-alert, awake and oriented 3 Generally weak, no focal neuro deficit Lab data as noted below. ASSESSMENT & PLAN: This is a 77-year-old female who presents with shortness of breath and lower extremity edema. Fluid Overload :Can not definitely define Systolic and or Diastolic heart failure Presented with Shortness of breath and lower extremity edema with H/O Edema . Received a dose of Lasix in the ER. Echo done in 2014 show normal EF with grade 1 diastolic dysfunction, Repeat ECHO:: * The left ventricle is normal in size. * There is moderate concentric left ventricular hypertrophy. * There is mild hypokinesis of the inferior and posterior riley of the base with all other wall segments alexa normally * Ejection Fraction = 55-60%. * Aortic valve sclerosis moderate, without significant aortic valvular stenosis. * There is mild mitral annular calcification. * There is no mitral regurgitation noted. Possibly right-sided heart failure from severe chronic obstructive pulmonary disease, Clinically a lot better Will not give any more Lasix routinely SOB following the use of Durela CXR -no acute changes Speech evaluation ordered Pt is feeling much better during my exam Repeat CXR::: 1.7 cm right upper lobe nodular density. This may reflect a small focus of airspace disease or pulmonary nodule. PA and lateral chest radiographs in one month to ensure resolution are recommended. Will need a PA and Lateral CXR in 1 Month Severe chronic obstructive pulmonary disease, Chronic respiratory failure on 2 liters oxygen at nighttime. Continue home inhalers and nebs p.r.n. Currently, no wheezing. We will monitor. Decreased breath sound bilaterally Minimal to no wheezing Started on Symbicort and tolerating 2 steps before discharge Very Low BMI May have Cachexia Dietary consult History of peripheral vascular disease,on Plavix and on statin. History of coronary artery disease, status post stents, on statin, Plavix and beta flor. We will follow echocardiogram . History of chronic kidney disease, stage IV. Baseline creatinine of around 2. Presented with creatinine of 1.9. Received a dose of Lasix. Kidney function is stable History of hypercalcemia. The patient got admitted multiple times for hypercalcemia in the past and workup was negative. Vitamin D was stopped. Today, calcium is 9.6 and was advised to drink lot of fluids. No acute issue Urinary retention, status post Perez catheter. We will consult urology in a.m. History of hypertension. Continue amlodipine, Toprol-XL and Hytrin. We will monitor the blood pressure. Deep venous thrombosis prophylaxis, SCDs and heparin subQ. DISPOSITION Discharge this afternoon Vital Signs: Date Time Temp Pulse Resp B/P (MAP) Pulse Ox O2 Delivery O2 Flow Rate FiO2 10/06/17 08:00 Nasal Cannula 2.0 10/06/17 07:06 36.8 69 20 138/58 (84) 93 10/06/17 00:00 Nasal Cannula 2.0 10/05/17 23:59 36.8 74 18 131/56 (81) 92 4.0 10/05/17 23:58 74 24 94 Nasal Cannula 2.0 10/05/17 20:00 Nasal Cannula 2.0 10/05/17 16:18 36.8 70 18 131/55 (80) 98 Nasal Cannula 2.0 10/05/17 16:00 98 Nasal Cannula 2.0 10/05/17 15:30 37.2 71 20 141/56 (84) 98 Room Air 10/05/17 12:00 Nasal Cannula 2.0 10/05/17 11:41 36.6 72 22 131/65 (87) 97 Nasal Cannula 2.0 Lab Results: Results Past 24 Hours Test 10/05/17 11:45 10/05/17 12:07 10/05/17 16:52 10/05/17 20:50 Range/Units Bedside Glucose 64 107 131 129 70-90 mg/dl Test 10/06/17 06:49 10/06/17 08:06 Range/Units White Blood Count 6.13 4.8-10.8 K/uL Red Blood Count 2.98 4.2-5.4 M/uL Hemoglobin 10.1 12.0-16.0 g/dL Hematocrit 29.3 37-47 % Mean Corpuscular Volume 98.3 80-100 fL Mean Corpuscular Hemoglobin 33.9 25-34 pg Mean Corpuscular Hemoglobin Concent 34.5 32-36 g/dl Platelet Count 187 130-400 K/uL Mean Platelet Volume 9.7 7.4-10.4 fL Neutrophils (%) (Auto) 63.9 % Lymphocytes (%) (Auto) 23.2 % Monocytes (%) (Auto) 7.8 % Eosinophils (%) (Auto) 4.2 % Basophils (%) (Auto) 0.7 % Neutrophils # (Auto) 3.92 1.4-6.5 K/uL Lymphocytes # (Auto) 1.42 1.2-3.4 K/uL Monocytes # (Auto) 0.48 0.11-0.59 K/uL Eosinophils # (Auto) 0.26 0-0.5 K/uL Basophils # (Auto) 0.04 0-0.2 K/uL RDW Standard Deviation 48.9 36.4-46.3 fL RDW Coefficient of Variation 13.7 11.5-14.5 % Immature Granulocyte % (Auto) 0.2 % Immature Granulocyte # (Auto) 0.01 0.00-0.02 K/uL Sodium Level 143 136-145 mmol/L Potassium Level 4.0 3.5-5.1 mmol/L Chloride Level 110 98-107 mmol/L Carbon Dioxide Level 30 21-32 mmol/L Anion Gap 3.0 3-11 mmol/L Blood Urea Nitrogen 33 7-18 mg/dl Creatinine 1.88 0.60-1.20 mg/dl Est Creatinine Clear Calc Drug Dose 16.1 ml/min Estimated GFR () 28.9 Estimated GFR (Non- 25.0 BUN/Creatinine Ratio 17.3 10-20 Random Glucose 92 70-99 mg/dl Calcium Level 9.3 8.5-10.1 mg/dl Magnesium Level 1.8 1.8-2.4 mg/dl Bedside Glucose 111 70-90 mg/dl
[2017-10-06] MEDS ORDERED: SYMIN INH (14:14)
[2017-10-06 14:16] VITALS: BP 138/58; PULSE 69; TEMP 36.8; O2SAT 93
--- NOTE | 2017-10-06 14:17 | Discharge Instructions ---
Discharge Instructions Date of Service October 06, 2017. Admission Reason for Admission: Fluid Overload, Urinary Retention Discharge Discharge Diagnosis / Problem: COPD exacerbation,Fluid overload-no CHF,CKD Discharge Goals Goal(s): Prevent Disease Progression Activity Recommendations Activity Limitations: resume your previous activity . Instructions / Follow-Up Instructions / Follow-Up Dr Baumann on 10/11/17 at 11:05 AM Current Hospital Diet Patient's current hospital diet: AHA Diet (Heart Healthy) Discharge Diet Recommended Diet: AHA Diet (Heart Healthy) Pending Studies Studies pending at discharge: no Medical Emergencies . Who to Call and When: Medical Emergencies: If at any time you feel your situation is an emergency, please call 911 immediately. . Non-Emergent Contact Non-Emergency issues call your: Primary Care Provider . Past History Medical & Surgical History: (1) Hypercalcemia (2) CAD (coronary artery disease) (3) DM type 2 (diabetes mellitus, type 2) (4) Ischemic cardiomyopathy (5) COPD, severe (6) CKD (chronic kidney disease), stage IV (7) Femoral artery aneurysm, right (8) Hx of appendectomy (9) History of hysterectomy (10) S/P carotid endarterectomy (11) H/O aorto-femoral bypass (12) S/P femoral-popliteal bypass surgery (13) Hx of cataract surgery . "Provider Documentation" section prepared by Danyell Newman. .
--- NOTE | 2017-10-06 16:24 | Discharge Summary ---
Discharge Summary Date of Service October 06, 2017. Discharge Summary Admission Date: October 04, 2017 at 00:41 Discharge Date: October 06, 2017 Discharge Disposition: Home with services Principal Diagnosis: COPD exacerbation,Fluid overload-no CHF,CKD Secondary Diagnoses/Problems: Please see H&P and Hospital progress note Medication Reconciliation New Medications: Budesonide/Formoterol Fumarate (Symbicort 160-4.5 Mcg/Act) 60 Puffs/Inhaler Aero 2 PUFFS INH BID for 30 Days, #1 INHALER Continued Medications: Acetaminophen Tab (Tylenol) 325 Mg Tab 650 MG PO Q4H PRN for Headache or Pain, TAB Acetaminophen/Codeine (Tylenol W/Codeine #3) 300 Mg/30 Mg Tab 1 TAB PO BID PRN for Pain, TAB Amlodipine Besylate (Amlodipine Besylate) 5 Mg Tab 5 MG PO DAILY Atorvastatin (Lipitor) 80 Mg Tab 80 MG PO DAILY, TAB Clopidogrel Bisulfate (Clopidogrel) 75 Mg Tab 75 MG PO DAILY Fish Oil ([place]-3) 1 Ea Cap 1000 MG PO BID, CAP Garlic (Garlic) 400 Mg Tab 400 MG PO DAILY Home O2 Therapy (Oxygen) Gas 2 LITERS NA UD, BTL USE DOING HOURS OF SLEEP AND WITH PERIODS OF EXERTION Ipratropium-Albuterol (Combivent Respimat) 1 Aer Aer 1 PUFF INH QID, INH Ipratropium-Albuterol (Duoneb) 3 Ml Nebu 1 VIAL NEB QID PRN for Shortness of Breath, INHA Metoprolol Succinate (Metoprolol Succinate ER) 100 Mg Tabcr 100 MG PO DAILY Nateglinide (Starlix) 60 Mg Tab 60 MG PO AC Nitroglycerin (Nitrostat) 0.4 Mg Tab 0.4 MG UT UD PRN for Chest Pain, BTL PLACE ONE TABLET UNDER THE TONGUE EVERY 5 MINUTES FOR UP TO 3 DOSES OVER 15 MINUTES IF NEEDED FOR CHEST PAIN Pantoprazole Sodium (Protonix) 20 Mg Tab 20 MG PO QAM TAKE THIS MEDICATION ONCE DAILY 30 MINUTES BEFORE FIRST MEAL OF THE DAY Terazosin Hcl (Hytrin) 2 Mg Cap 2 MG PO DAILY Discontinued Medications: Mometasone Furoate-Formoterol (Dulera 200/5 Mcg) 1 Aer Aer 2 PUFFS INH BID Admission Information HPI (per Admitting provider): DATE OF ADMISSION: 10/04/2017 CHIEF COMPLAINT: Shortness of breath. HISTORY OF PRESENT ILLNESS: This is a 77-year-old female with past medical history significant for severe COPD, chronic respiratory failure on home oxygen at nighttime, chronic kidney disease stage IV, baseline creatinine around 2, diabetes, history of peripheral edema, history of hypercalcemia, history of GERD, history of hypertension, history of CAD status post stent, history of carotid stenosis, history of proteinuria, presents with shortness of breath. The patient states that yesterday she was feeling short of breath and her legs are more swollen than usual and today the shortness of breath was worse and she was brought into the ER and also having trouble urinating since today. She uses nebulizer 4 times a day and today in spite of using the nebulizer she was still feeling short of breath and that is the reason she was brought into the ER. Currently, resting comfortably and hemodynamically stable, saturating okay on 2 liters. Denies any headaches. No blurred vision. Somewhat hard to hear, but no earache, no runny nose, no sore throat, no difficulty swallowing. Feels dry in the mouth. Denies any chest pain. No fever, no chills, no nausea, no vomiting, no abdominal pain. Appetite is okay. Normal bowel movements. No blood in the stools. The patient lives alone. Her brother comes and checks on her and neighbor helps her. Neighbor and brother bring her food. She ambulates with cane or walker at home. ALLERGIES: AMOXICILLIN, IMDUR, SALICYLATES, NEOSPORIN. PAST MEDICAL HISTORY: As mentioned above. PAST SURGICAL HISTORY: Aortofemoral bypass graft, left heart catheterization, left carotid artery endarterectomy, right femoral artery aneurysm repair, laser procedure for the eye, left carotid stent placement, total abdominal hysterectomy with tubectomy. MEDICATIONS: Patient is on Tylenol with codeine 1 tablet p.o. b.i.d. p.r.n., DuoNebs 3-4 times a day as needed, amlodipine 5 mg p.o. daily, Lipitor 80 mg p.o. daily, Plavix 75 mg p.o. daily, garlic 400 mg p.o. daily, home oxygen 2 liters at bedtime., Combivent 1 puff q.i.d., Toprol-XL 100 mg p.o. daily, Dulera 2 puffs b.i.d., Starlix 60 mg t.i.d. with meals, nitroglycerin 0.4 mg sublingual p.r.n., fish oil 1 capsule p.o. b.i.d., Protonix 20 mg p.o. daily, Hytrin 2 mg p.o. daily. FAMILY HISTORY: Significant for father had heart disorder. Mother at age of 86. SOCIAL HISTORY: Quit smoking in 2000, smoked half pack a day for 40 years. No alcohol use, no drug use. . Lives alone. Brother checks her and neighbors help her. PHYSICAL EXAMINATION: GENERAL: The patient is old and frail, not in distress. VITAL SIGNS: Temperature 36.8, pulse 96, respiratory rate 18, blood pressure 148/60, oxygen 96% on 2 liters. HEENT: No pallor, no icterus. Pupils equal, round react to light. NECK: No JVD, no neck masses, no carotid bruits. CARDIOVASCULAR: S1, S2, heard, regular rate and rhythm, no murmur, no gallop. RESPIRATORY SYSTEM: Normal AP diameter. No accessory use. No wheezing, no crackles. ABDOMEN: Soft, bowel sounds present. Nontender. No distention. CENTRAL NERVOUS SYSTEM: Cranial nerves II-XII grossly intact. Nonfocal. EXTREMITIES: Lower extremity edema present, no erythema seen. LABORATORIES: WBC 7.1, hemoglobin 9.6, hematocrit 29.3, platelets 172. Sodium 140, potassium 4.0, chloride 107, bicarbonate 29, BUN 25, creatinine 1.9, serum glucose 116, calcium 9.6, magnesium 1.3, total bilirubin 0.3, AST 26, ALT 43, alkaline phosphatase is 114. Troponin I less than 0.015. BNP 3281. TSH 0.6. PT 10.2, INR 1, APTT 23.3. Urinalysis negative. Chest x-ray, mild emphysematous changes, otherwise negative study. Lower extremity Doppler, unofficial report, no DVT. EKG: Normal sinus rhythm with the rate of 96, nonspecific ST changes. No acute ST changes seen. ASSESSMENT AND PLAN: This is a 77-year-old female who presents with shortness of breath and lower extremity edema. 1. Shortness of breath and lower extremity edema. Echo done in 2014 show normal EF with grade 1 diastolic dysfunction, possibly right-sided heart failure from severe chronic obstructive pulmonary disease, possible acute diastolic congestive heart failure. We will check echocardiogram. Received a dose of Lasix in the ER. We will hold further Lasix and monitor I's and O's, daily weights and based on echo report and response, we will consult cardiology evaluation. 2. History of severe chronic obstructive pulmonary disease, chronic respiratory failure on 2 liters oxygen at nighttime. Continue home inhalers and nebs p.r.n. Currently, no wheezing. We will monitor. 3. History of peripheral vascular disease,on Plavix and on statin. 4. History of coronary artery disease, status post stents, on statin, Plavix and beta flor. We will follow echocardiogram. 5. History of chronic kidney disease, stage IV. Baseline creatinine of around 2. Presented with creatinine of 1.9. Received a dose of Lasix. We will follow the labs. 6. History of hypercalcemia. The patient got admitted multiple times for hypercalcemia in the past and workup was negative. On last admission, vitamin D was stopped. Today, calcium is 9.6 and was advised to drink lot of fluids. The patient received Lasix today. We will monitor the labs. 7. Urinary retention, status post Perez catheter. We will consult urology in a.m. 8. History of hypertension. Continue amlodipine, Toprol-XL and Hytrin. We will monitor the blood pressure. 9. Deep venous thrombosis prophylaxis, SCDs and heparin subQ. DISPOSITION: Admit to tele floor. PT and OT prior to discharge. Social service to help with discharge planning. Code status: Level 1 full code. Hospital Course This is a 77-year-old female who presents with shortness of breath and lower extremity edema. Fluid Overload :Can not definitely define Systolic and or Diastolic heart failure Presented with Shortness of breath and lower extremity edema with H/O Edema . Received a dose of Lasix in the ER. Echo done in 2014 show normal EF with grade 1 diastolic dysfunction, Repeat ECHO:: * The left ventricle is normal in size. * There is moderate concentric left ventricular hypertrophy. * There is mild hypokinesis of the inferior and posterior riley of the base with all other wall segments alexa normally * Ejection Fraction = 55-60%. * Aortic valve sclerosis moderate, without significant aortic valvular stenosis. * There is mild mitral annular calcification. * There is no mitral regurgitation noted. Possibly right-sided heart failure from severe chronic obstructive pulmonary disease, Clinically a lot better Will not give any more Lasix routinely SOB following the use of Durela CXR -no acute changes Speech evaluation ordered Pt is feeling much better during my exam Repeat CXR::: 1.7 cm right upper lobe nodular density. This may reflect a small focus of airspace disease or pulmonary nodule. PA and lateral chest radiographs in one month to ensure resolution are recommended. Will need a PA and Lateral CXR in 1 Month Severe chronic obstructive pulmonary disease, Chronic respiratory failure on 2 liters oxygen at nighttime. Continue home inhalers and nebs p.r.n. Currently, no wheezing. We will monitor. Decreased breath sound bilaterally Minimal to no wheezing Started on Symbicort and tolerating 2 steps before discharge-No oxygen needed Very Low BMI May have Cachexia Dietary consult History of peripheral vascular disease,on Plavix and on statin. History of coronary artery disease, status post stents, on statin, Plavix and beta flor. We will follow echocardiogram . History of chronic kidney disease, stage IV. Baseline creatinine of around 2. Presented with creatinine of 1.9. Received a dose of Lasix. Kidney function is stable History of hypercalcemia. The patient got admitted multiple times for hypercalcemia in the past and workup was negative. Vitamin D was stopped. Today, calcium is 9.6 and was advised to drink lot of fluids. No acute issue Urinary retention, status post Perez catheter. We will consult urology in a.m. History of hypertension. Continue amlodipine, Toprol-XL and Hytrin. We will monitor the blood pressure. Deep venous thrombosis prophylaxis, SCDs and heparin subQ. DISPOSITION Discharge this afternoon Total time spent on discharge = 35 minutes This includes examination of the patient, discharge planning, medication reconciliation, and communication with other providers. Discharge Instructions Date of Service October 06, 2017. Admission Reason for Admission: Fluid Overload, Urinary Retention Discharge Discharge Diagnosis / Problem: COPD exacerbation,Fluid overload-no CHF,CKD Discharge Goals Goal(s): Prevent Disease Progression Activity Recommendations Activity Limitations: resume your previous activity . Instructions / Follow-Up Instructions / Follow-Up Dr Baumann on 10/11/17 at 11:05 AM Current Hospital Diet Patient's current hospital diet: AHA Diet (Heart Healthy) Discharge Diet Recommended Diet: AHA Diet (Heart Healthy) Pending Studies Studies pending at discharge: no Medical Emergencies . Who to Call and When: Medical Emergencies: If at any time you feel your situation is an emergency, please call 911 immediately. . Non-Emergent Contact Non-Emergency issues call your: Primary Care Provider . Past History Medical & Surgical History: (1) Hypercalcemia (2) CAD (coronary artery disease) (3) DM type 2 (diabetes mellitus, type 2) (4) Ischemic cardiomyopathy (5) COPD, severe (6) CKD (chronic kidney disease), stage IV (7) Femoral artery aneurysm, right (8) Hx of appendectomy (9) History of hysterectomy (10) S/P carotid endarterectomy (11) H/O aorto-femoral bypass (12) S/P femoral-popliteal bypass surgery (13) Hx of cataract surgery . "Provider Documentation" section prepared by Danyell Newman. . <Electronically signed by Danyell Newman M.D.> Signed: 10/06/17 0617 Signed: Additional Copies To Dong Baumann M.D.([facility])
== END 2017-10-06 14:27 | disposition home health service (06) | DRG 191 ==
LOC: C.EDB 21:09 → C.2T 10-04 00:41 → ENRESERV 10-04 00:54 → C.MS4W 10-05 15:41
PROVIDERS: ADMIT Internal Medicine; ATTEND Internal Medicine
DX: J44.1 Chronic obstructive pulmonary disease with (acute) exacerbation (principal); J96.10 Chronic respiratory failure, unspecified whether with hypoxia or hypercapnia; R64 Cachexia; Z68.1 Body mass index [BMI] 19.9 or less, adult; I12.9 Hypertensive chronic kidney disease with stage 1 through stage 4 chronic kidney disease, or unspecified chronic kidney disease; E11.22 Type 2 diabetes mellitus with diabetic chronic kidney disease; N18.4 Chronic kidney disease, stage 4 (severe); E87.70 Fluid overload, unspecified; R33.9 Retention of urine, unspecified; E11.51 Type 2 diabetes mellitus with diabetic peripheral angiopathy without gangrene; I25.2 Old myocardial infarction; I25.10 Atherosclerotic heart disease of native coronary artery without angina pectoris; E78.5 Hyperlipidemia, unspecified; K21.9 Gastro-esophageal reflux disease without esophagitis; Z79.02 Long term (current) use of antithrombotics/antiplatelets; Z79.899 Other long term (current) drug therapy; Z87.891 Personal history of nicotine dependence; Z99.81 Dependence on supplemental oxygen; Z88.1 Allergy status to other antibiotic agents; Z88.5 Allergy status to narcotic agent; Z88.6 Allergy status to analgesic agent; Z95.5 Presence of coronary angioplasty implant and graft

== ENCOUNTER 2019-05-01 11:54 | Inpatient (IN) ==
[2019-05-01] MEDS ORDERED: SODIUM CHLORIDE 0.9% 1000ML 500 ML IV ONE (12:38)
--- NOTE | 2019-05-01 12:54 | Emergency Department Note ---
History of Present Illness General Chief Complaint: Shortness of Breath/Dyspnea Source: patient Mode of arrival: ambulatory Limitations: no limitations History of Present Illness Provider Complaint: shortness of breath and cough Onset (ago): week(s) (1) Severity: moderate Maximum Pain Intensity: 0 Relieved By: + bronchodilators Exacerbated By: + exertion, + movement and + coughing Known history of: COPD Associated symptoms: + pain with inspiration, + cough, + wheezing, + sputum production and + orthopnea; no chest pain, no fever, no lower extremity pain, no polyuria, no polydipsia and no paresthesias Treatment prior to arrival: none This 79 yo female with significant past medical history of COPD who wears home O2 at 2LPM during the day and 4 LPM at nighttime, presents to the ED today via ambulance, for evaluation of cough and dyspnea. Symptoms have been ongoing for at least a week and a half. The patient was seen by her PCP and states she is supposed to be taking antibiotics, but only took 1 dose of the antibiotic. This was 2 to 3 days ago. Upon further review of the patient's medical records from the EMR, it does appear that she was prescribed a Z-Murali followed by prednisone. I am unclear of which medications the patient had been taking. She denies any fever, but states her dyspnea and coughing have continued. She did begin coughing up sputum yesterday and states this helped her to breathe a little more easily. She did receive 3 DuoNeb treatments while in route to the ED and states that her symptoms have improved with these treatments. She denies any associated chest pain, abdominal pain, nausea, vomiting, or recent traumatic in jury. Related Data Home oxygen amount: 2 liters Home Medications Home Medications Medication Instructions Recorded Confirmed Type albuterol sulfate [Ventolin HFA] 2 puff INHALATION Q6H PRN 05/01/19 05/01/19 History amlodipine 5 mg PO DAILY 05/01/19 05/01/19 History budesonide-formoterol [Symbicort] 2 puff INHALATION BID 05/01/19 05/01/19 History clopidogrel 0 mg PO DAILY 05/01/19 05/01/19 History glipizide 5 mg PO DAILY 05/01/19 05/01/19 History ipratropium-albuterol 3 ml INHALATION Q4H PRN 05/01/19 05/01/19 History linagliptin [Tradjenta] 5 mg PO DAILY 05/01/19 05/01/19 History metoprolol succinate 0 mg PO DAILY 05/01/19 05/01/19 History mirtazapine 7.5 mg PO HS 05/01/19 05/01/19 History prednisone 0 mg PO TID 05/01/19 05/01/19 History Allergies Allergy/AdvReac Type Severity Reaction Status Date / Time codeine Allergy Mild Verified 06/09/16 14:42 amoxicillin Allergy Unknown unknown Verified 08/14/16 18:18 aspirin Allergy Unknown UNKNOWN Verified 06/09/16 14:42 bacitracin Allergy Unknown Rash Verified 09/26/17 21:44 isosorbide Allergy Unknown unknown Verified 08/14/16 18:18 neomycin Allergy Unknown Rash Verified 09/26/17 21:44 polymyxin B Allergy Unknown Rash Verified 09/26/17 21:44 Past Med/Surg History Medical History CAD (coronary artery disease) (Chronic) "NSTEMI 01/2009 - BMS to distal left circumflex, cath at that time showed 100% proximal RCA occlusion" CKD (chronic kidney disease), stage IV (Chronic) COPD, severe (Chronic) "oxygen requiring" DM type 2 (diabetes mellitus, type 2) (Chronic) Dyslipidemia (Chronic) Femoral artery aneurysm, right (Chronic) "s/p repair" GERD (gastroesophageal reflux disease) (Chronic) Hypercalcemia Ischemic cardiomyopathy (Chronic) "echo 04/2015- EF 50-55%, grade I diastolic dysfunction" On 05/02/15 18:17 Adele Mathur wrote "echo 2010 - EF 45-50%, grade I diastolic dysfunction" PVD (peripheral vascular disease) (Chronic) Surgical History H/O aorto-femoral bypass (Chronic) History of hysterectomy (Chronic) Hx of appendectomy (Chronic) Hx of cataract surgery (Chronic) S/P carotid endarterectomy (Chronic) "left in 2001, left carotid stent placed 2002" S/P femoral-popliteal bypass surgery (Chronic) Social History Preferred Language: Welsh Feels Safe at Home: Yes Smoking Status: Former smoker Review of Systems A total of 10 systems reviewed and were otherwise negative Physical Exam Vital Signs: Vital Signs - 24 hr 05/01/19 11:54 05/01/19 12:01 05/01/19 12:14 Temperature 37.3 C Temperature Source Oral Pulse Rate 102 H 102 H 101 H Pulse Rate [Apical ] 103 H Pulse Rate from Sp O2 Sensor 102 H 98 H Respiratory Rate 22 36 H 27 H Respiratory Effort / Characteristics Short of Breath Respiratory Patter n Regular Blood Pressure 152/59 H 152/59 H Blood Pressure [Ri ght Arm] 152/59 H Blood Pressure Anastasiia n 90 76 Blood Pressure Anastasiia n [Right Arm] 90 Blood Pressure Pos ition Sitting Blood Pressure Pos ition [Right Arm] Sitting Pulse Oximetry 100 100 100 Oxygen Delivery Me thod Room Air Oxygen Flow Rate 2 Sepsis Recent Feve r Within 48 Hours No Sepsis New/Unexpla ined Change in Men boston Status No Sepsis Action Take n by Nursing No Action Required 05/01/19 12:15 05/01/19 12:30 05/01/19 12:31 Temperature Temperature Source Pulse Rate 101 H 101 H 102 H Pulse Rate [Apical ] Pulse Rate from Sp O2 Sensor 100 H 102 H 102 H Respiratory Rate 32 H 23 22 Respiratory Effort / Characteristics Respiratory Patter n Blood Pressure 147/62 H Blood Pressure [Ri ght Arm] Blood Pressure Anastasiia n 103 Blood Pressure Anastasiia n [Right Arm] Blood Pressure Pos ition Blood Pressure Pos ition [Right Arm] Pulse Oximetry 100 100 100 Oxygen Delivery Me thod Oxygen Flow Rate Sepsis Recent Feve r Within 48 Hours Sepsis New/Unexpla ined Change in Men boston Status Sepsis Action Take n by Nursing 05/01/19 12:32 05/01/19 12:45 05/01/19 13:00 Temperature Temperature Source Pulse Rate 101 H 101 H 101 H Pulse Rate [Apical ] Pulse Rate from Sp O2 Sensor 102 H 102 H 101 H Respiratory Rate 23 30 H 32 H Respiratory Effort / Characteristics Respiratory Patter n Blood Pressure 141/60 H Blood Pressure [Ri ght Arm] Blood Pressure Anastasiia n 87 Blood Pressure Anastasiia n [Right Arm] Blood Pressure Pos ition Blood Pressure Pos ition [Right Arm] Pulse Oximetry 99 100 100 Oxygen Delivery Me thod Nasal Cannula Nasal Cannula Nasal Cannula Oxygen Flow Rate 2 2 2 Sepsis Recent Feve r Within 48 Hours Sepsis New/Unexpla ined Change in Men boston Status Sepsis Action Take n by Nursing 05/01/19 13:15 05/01/19 13:30 05/01/19 13:45 Temperature Temperature Source Pulse Rate 99 H 98 H 97 H Pulse Rate [Apical ] Pulse Rate from Sp O2 Sensor 99 H 99 H 95 H Respiratory Rate 26 H 24 24 Respiratory Effort / Characteristics Respiratory Patter n Blood Pressure Blood Pressure [Ri ght Arm] Blood Pressure Anastasiia n Blood Pressure Anastasiia n [Right Arm] Blood Pressure Pos ition Blood Pressure Pos ition [Right Arm] Pulse Oximetry 100 100 100 Oxygen Delivery Me thod Oxygen Flow Rate Sepsis Recent Feve r Within 48 Hours Sepsis New/Unexpla ined Change in Men boston Status Sepsis Action Take n by Nursing 05/01/19 14:00 05/01/19 14:15 05/01/19 14:30 Temperature Temperature Source Pulse Rate 96 H 98 H 98 H Pulse Rate [Apical ] Pulse Rate from Sp O2 Sensor 97 H 99 H 98 H Respiratory Rate 24 26 H 24 Respiratory Effort / Characteristics Respiratory Patter n Blood Pressure 147/62 H Blood Pressure [Ri ght Arm] Blood Pressure Anastasiia n 90 Blood Pressure Anastasiia n [Right Arm] Blood Pressure Pos ition Blood Pressure Pos ition [Right Arm] Pulse Oximetry 99 100 99 Oxygen Delivery Me thod Oxygen Flow Rate Sepsis Recent Feve r Within 48 Hours Sepsis New/Unexpla ined Change in Men boston Status Sepsis Action Take n by Nursing 05/01/19 15:11 05/01/19 15:13 Temperature Temperature Source Pulse Rate 98 H 109 H Pulse Rate [Apical ] Pulse Rate from Sp O2 Sensor 99 H Respiratory Rate 21 Respiratory Effort / Characteristics Respiratory Patter n Blood Pressure 147/69 H Blood Pressure [Ri ght Arm] Blood Pressure Anastasiia n 99 Blood Pressure Anastasiia n [Right Arm] Blood Pressure Pos ition Blood Pressure Pos ition [Right Arm] Pulse Oximetry 100 Oxygen Delivery Me thod Nasal Cannula Oxygen Flow Rate 2 Sepsis Recent Feve r Within 48 Hours Sepsis New/Unexpla ined Change in Men boston Status Sepsis Action Take n by Nursing Physical Exam: VITALS: Vitals are noted on the nurse's note and reviewed by myself. O2 saturation high 90s on 2 L O2. When the patient speaks, O2 saturation decreases to 90 to 92%. Patient is tachycardic. GENERAL: This is an 79-year-old white female in no acute distress, nondiaphoretic, well-developed well-nourished. SKIN: Bruising noted on the left upper extremity which is purple in color and green in some areas. The skin was otherwise without rashes, erythema, edema, or bruising. There is no tenting of the skin. Capillary refill less than 2 seconds. HEAD: Normocephalic atraumatic. EARS: External auditory canals clear, tympanic membranes pearly lewis without erythema or effusion bilaterally. EYES: Pupils equal round and reactive to light and accommodation. Conjunctivae without injection, sclerae without icterus. Extraocular movements intact. NOSE: Patent, turbinates without inflammation or discharge. No sinus tenderness. MOUTH: Mucous membranes moist. Tonsils are not enlarged. Pharynx without erythema or exudate. Uvula midline. Airway patent. Tongue does not deviate. NECK: Supple without nuchal rigidity. No lymphadenopathy. HEART: Regular rate and rhythm without murmurs gallops or rubs. LUNGS: Diminished breath sounds throughout. Mild wheezing throughout. No retractions or accessory muscle use. ABDOMEN: Positive bowel sounds x 4. Normal tympanic percussion. Soft, nontender, without masses or organomegaly. King sign negative. No guarding or rebound tenderness. MUSCULOSKELETAL: No muscle atrophy, erythema, or edema noted. Full range of motion without joint tenderness in all extremities. No tenderness to palpation. Normal gait. Strength 5/5 throughout. NEURO: Patient was alert and oriented to person place and time. Normal sensation to light and sharp touch. No focal neurological deficits. Course The patient was seen and evaluated as above. Previous medical records reviewed. IV access obtained, labs drawn. Patient medicated with IV fluids. Imaging performed and reviewed by myself and radiologist as above. Labs reviewed by myself. I discussed the findings with the patient at bedside. She was reassessed. Wheezing has worsened throughout the lung garcia. I discussed the case with my attending. I discussed case with the district sales manager and recommended admission. Patient medicated with IV Solu-Medrol. I consulted with [facility] hospitalist. I spoke with Sabina Presley PA-C. She did agree to see and evaluate the patient for admission. Please see hospitalist dictation regarding ongoing management care of this patient. Administered Medications Discontinued Medications Sodium Chloride (Nss 1000ml) 500 mls @ 999 mls/hr IV .Q31M ONE Stop: 05/01/19 13:08 Last Infusion: 05/01/19 13:57 Dose: 0 mls/hr Documented by: [id number] Admin: 05/01/19 13:07 Dose: 999 mls/hr Documented by: [id number] Medical Decision Making Differential Diagnosis + acute exacerbation of chronic obstructive airways disease, + congestive heart failure, + community acquired pneumonia, + asthma with exacerbation, + pulmonary embolism, + COPD, + bronchitis, + pneumothorax, + pneumonia, + pleural effusion, + CHF, + ACS and + aspiration Medical Records Attestation: I reviewed the patient's medical records. Home Medications Current Medication List: was personally reviewed by me Laboratory Data Attestation: I reviewed the patient's lab results. Anemia with a hemoglobin of 9.6 and hematocrit 28.8, which does appear chronic. No leukocytosis or thrombocytopenia. Coags normal. Renal, hepatic function and electrolytes without significant abnormality. Troponin negative. Influenza testing negative. Result diagrams: 05/01/19 12:57 05/01/19 12:57 Lab Results 05/01/19 05/01/19 05/01/19 Range/Units 12:57 12:57 12:57 WBC 10.78 (4.8-10.8) K/uL RBC 2.96 L (4.2-5.4) M/uL Hgb 9.6 L (12.0-16.0) g/dL Hct 28.8 L (37-47) % MCV 97.3 (80-100) fL MCH 32.4 (25-34) pg MCHC 33.3 (32-36) g/dL RDW Std Deviation 51.5 H (36.4-46.3) fL RDW Coeff of Leslie 14.6 H (11.5-14.5) % Plt Count 182 (130-400) K/uL MPV 10.8 H (7.4-10.4) fL Immature Gran % (Auto) 0.4 % Neut % (Auto) 93.0 % Lymph % (Auto) 4.7 % Trigg % (Auto) 1.8 % Eos % (Auto) 0.0 % Baso % (Auto) 0.1 % Immature Gran # (Auto) 0.04 H (0.00-0.02) K/uL Neut # (Auto) 10.03 H (1.4-6.5) K/uL Lymph # (Auto) 0.51 L (1.2-3.4) K/uL Trigg # (Auto) 0.19 (0.11-0.59) K/uL Eos # (Auto) 0.00 (0-0.5) K/uL Baso # (Auto) 0.01 (0-0.2) K/uL PT 10.3 (9.0-12.0) Seconds INR 1.0 (0.9-1.1) APTT 25.3 (21.0-31.0) Seconds PTT Ratio 0.9 Sodium 144 (136-145) mmol/L Potassium 3.9 (3.5-5.1) mmol/L Chloride 114 H (98-107) mmol/L Carbon Dioxide 21 (21-32) mmol/L Anion Gap 8.0 (3-11) BUN 77 H (7-18) mg/dl Creatinine 1.98 H (0.6-1.2) mg/dl Est Cr Clr Drug Dosing 14.6 ml/min Est GFR ( Amer) 26.8 Est GFR (Non-Af Amer) 23.1 BUN/Creatinine Ratio 38.9 H (10-20) Glucose 198 H (70-99) mg/dl Calcium 10.6 H (8.5-10.1) mg/dl Magnesium 2.1 (1.8-2.4) mg/dl Total Bilirubin 0.3 (0.2-1) mg/dl AST 27 (15-37) U/L ALT 61 (12-78) U/L Alkaline Phosphatase 292 H (45-117) U/L Troponin I < 0.015 (0-0.045) ng/ml Total Protein 6.4 (6.4-8.2) gm/dl Albumin 3.0 L (3.4-5.0) gm/dl Globulin 3.4 (2.5-4.0) gm/dl Albumin/Globulin Ratio 0.9 (0.9-2) Influenza Type A Ag (Neg) Influenza Type B Ag (Neg) 05/01/19 Range/Units 12:58 WBC (4.8-10.8) K/uL RBC (4.2-5.4) M/uL Hgb (12.0-16.0) g/dL Hct (37-47) % MCV (80-100) fL MCH (25-34) pg MCHC (32-36) g/dL RDW Std Deviation (36.4-46.3) fL RDW Coeff of Leslie (11.5-14.5) % Plt Count (130-400) K/uL MPV (7.4-10.4) fL Immature Gran % (Auto) % Neut % (Auto) % Lymph % (Auto) % Trigg % (Auto) % Eos % (Auto) % Baso % (Auto) % Immature Gran # (Auto) (0.00-0.02) K/uL Neut # (Auto) (1.4-6.5) K/uL Lymph # (Auto) (1.2-3.4) K/uL Trigg # (Auto) (0.11-0.59) K/uL Eos # (Auto) (0-0.5) K/uL Baso # (Auto) (0-0.2) K/uL PT (9.0-12.0) Seconds INR (0.9-1.1) APTT (21.0-31.0) Seconds PTT Ratio Sodium (136-145) mmol/L Potassium (3.5-5.1) mmol/L Chloride (98-107) mmol/L Carbon Dioxide (21-32) mmol/L Anion Gap (3-11) BUN (7-18) mg/dl Creatinine (0.6-1.2) mg/dl Est Cr Clr Drug Dosing ml/min Est GFR ( Amer) Est GFR (Non-Af Amer) BUN/Creatinine Ratio (10-20) Glucose (70-99) mg/dl Calcium (8.5-10.1) mg/dl Magnesium (1.8-2.4) mg/dl Total Bilirubin (0.2-1) mg/dl AST (15-37) U/L ALT (12-78) U/L Alkaline Phosphatase (45-117) U/L Troponin I (0-0.045) ng/ml Total Protein (6.4-8.2) gm/dl Albumin (3.4-5.0) gm/dl Globulin (2.5-4.0) gm/dl Albumin/Globulin Ratio (0.9-2) Influenza Type A Ag Neg for Influ A (Neg) Influenza Type B Ag Neg for Influ B (Neg) Imaging Data Radiologist's Impression: XR chest 2V PA/lateral CLINICAL HISTORY: cough, dyspnea COMPARISON STUDY: 10/05/2017 FINDINGS: There is radiographic evidence of emphysema. There is no focal pulmonary consolidation. There are no pleural effusions. There is no failure.[An equivocal right upper lung zone nodule likely represents a summation. IMPRESSION: 1. Suspected pulmonary emphysema 2. No evidence of failure. No evidence of focal pulmonary consolidation Electronically signed by: Cole Ro M.D. 05/01/2019 3:10 PM ECG Data Attestation: I personally reviewed and interpreted this ECG as follows: Prior ECG tracings: available for review (When compared to EKG from October 2017, PVC now present, but no significant change.) Interpretation: Sinus tachycardia with occasional PVC. Ventricular rate of 103 bpm. No acute ischemic changes. No ST elevation. No T wave inversion. Blood Pressure Blood Pressure Findings: Elevated blood pressure Blood Pressure Disposition: elevated BP felt to be situational MDM Narrative This 79-year-old female patient presents emergency department today due to dyspnea. She remained dyspneic despite 3 Duoneb treatments which were given prior to arrival. She has been on antibiotics and steroids and continues to experience the difficulty breathing, cough, and orthopnea. The patient is afebrile. Influenza testing negative. No leukocytosis. Suspect an acute COPD exacerbation with bronchitis. The patient was treated in the ED with oxygen, IV fluids, and Solu-Medrol. She will be admitted to the hospitalist service due to the dyspnea for further evaluation and management of her symptoms. The chart was completed utilizing [employer] Speech voice recognition software. Grammatical errors, random word insertions, pronoun errors, and incomplete sentences are an occasional consequence of this system due to software limi tations, ambient noise, and hardware issues. Any formal questions or concerns about the content, text, or information contained within the body of this dictation should be directly addressed to the provider for clarification. Impression & Plan COPD, severe, Acute exacerbation of chronic obstructive airways disease Discharge Plan Visit Data Chief Complaint: Shortness of Breath/Dyspnea ED Provider: Rusty [facility] ED Midlevel Provider: Chula Omer Discharge Problem: COPD, severe, Acute exacerbation of chronic obstructive airways disease Patient Disposition: Admitted As Inpatient Condition: Good Forms Stand Alone Forms: My [facility] Prescriptions Prescriptions: No Action ipratropium-albuterol 0.5 mg-3 mg(2.5 mg base)/3 mL solution for nebulization 3 ml INHALATION Q4H PRN (Reason: Shortness Of Breath) RF: 0 metoprolol succinate 100 mg tablet extended release 24 hr 0 mg PO DAILY RF: 0 clopidogrel 75 mg tablet 0 mg PO DAILY RF: 0 amlodipine 5 mg tablet 5 mg PO DAILY RF: 0 albuterol sulfate [Ventolin HFA] 90 mcg/actuation HFA aerosol inhaler 2 puff INHALATION Q6H PRN (Reason: Shortness Of Breath) RF: 0 glipizide 5 mg tablet 5 mg PO DAILY RF: 0 mirtazapine 7.5 mg tablet 7.5 mg PO HS RF: 0 Symbicort 160-4.5 mcg/actuation HFA aerosol inhaler 2 puff INHALATION BID RF: 0 Tradjenta 5 mg tablet 5 mg PO DAILY RF: 0 prednisone 20 mg Tablet 0 mg PO TID RF: 0 Referrals Referrals: Dong Baumann MD [Primary Care Provider] -
[2019-05-01 13:10] LABS: Basophils # (auto) 0.01 K/uL (0-0.2); Basophils % (auto) 0.1 %; Hematocrit (blood only) 28.8 % (37-47); Hemoglobin 9.6 g/dL (12.0-16.0); Immature Granulocytes # (auto) 0.04 K/uL (0.00-0.02); Immature Granulocytes % (auto) 0.4 %; Lymphocytes # (auto) 0.51 K/uL (1.2-3.4); Lymphocytes % (auto) 4.7 %; Mean Corpuscular Hemoglobin 32.4 pg (25-34); Mean Corpuscular Hgb Conc 33.3 g/dL (32-36); Mean Corpuscular Volume 97.3 fL (80-100); Mean Platelet Volume 10.8 fL (7.4-10.4); Monocytes # (auto) 0.19 K/uL (0.11-0.59); Monocytes % (auto) 1.8 %; Neutrophils # (auto) 10.03 K/uL (1.4-6.5); Platelet Count 182 K/uL (130-400); RDW Coefficient of Variation 14.6 % (11.5-14.5); RDW Standard Deviation 51.5 fL (36.4-46.3); Red Blood Count 2.96 M/uL (4.2-5.4); White Blood Count 10.78 K/uL (4.8-10.8)
[2019-05-01 13:26] LABS: Partial Thromboplastin Ratio 0.9; Partial Thromboplastin Time 25.3 Seconds (21.0-31.0); Prothrombin Time 10.3 Seconds (9.0-12.0)
[2019-05-01 13:28] LABS: Alanine Aminotransferase 61 U/L (12-78); Aspartate Aminotransferase 27 U/L (15-37); BUN Creatinine Ratio 38.9 (10-20); Blood Urea Nitrogen 77 mg/dl (7-18); Calcium 10.6 mg/dl (8.5-10.1); Carbon Dioxide 21 mmol/L (21-32); Chloride 114 mmol/L (98-107); Creatinine Clr Calc Pharmacy 14.6 ml/min; Est GFR (African American) 26.8; Est GFR (Non-African American) 23.1; Glucose 198 mg/dl (70-99); Magnesium 2.1 mg/dl (1.8-2.4); Potassium 3.9 mmol/L (3.5-5.1); Sodium 144 mmol/L (136-145)
[2019-05-01 13:33] LABS: Albumin Globulin Ratio 0.9 (0.9-2); Alkaline Phosphatase 292 U/L (45-117); Bilirubin,Total 0.3 mg/dl (0.2-1); Globulin 3.4 gm/dl (2.5-4.0); Total Protein 6.4 gm/dl (6.4-8.2); Troponin I < 0.015 ng/ml (0-0.045)
--- NOTE | 2019-05-01 15:11 | XRay Report ---
XR chest 2V PA/lateral CLINICAL HISTORY: cough, dyspnea COMPARISON STUDY: 10/05/2017 FINDINGS: There is radiographic evidence of emphysema. There is no focal pulmonary consolidation. The re are no pleural effusions. There is no failure.[An equivocal right upper lung zone nodule likely re presents a summation. IMPRESSION: 1. Suspected pulmonary emphysema 2. No evidence of failure. No evidence of focal pulmonary consolidation Electronically signed by: Cole Ro M.D. 05/01/2019 3:10 PM
[2019-05-01] MEDS ORDERED: methylPREDNISolone 60 MG in SYRINGE 1 ML IV STA (15:24)
--- NOTE | 2019-05-01 16:25 | History & Physical Report ---
Date of Service May 01, 2019 Assessment & Plan (1) Chronic respiratory failure: (2) Acute exacerbation of chronic obstructive airways disease: This is a 79-year-old female who has a significant past medical history of Chronic respiratory failure 2/2 severe COPD on chronic O2, T2DM, systolic CHF, CAD, PVD, carotid artery stenosis, HTN, CKD stage IV, GERD, hypercalcemia, history of tobacco abuse who presents to [facility] ED secondary to worsening shortness of breath and cough x1 week. In ED chest x-ray revealed emphysema but no acute cardiopulmonary abnormality Negative for influenza, WBC 10.78, H&H 9.6 and 28.8, platelet 182, elevated BUN and creatinine 77 and 1.98, glucose 198, calcium 10.6 Troponin and procalcitonin WNL Admit to med/surg secondary to COPD exacerbation IV methylprednisolone 40mg Q8hr IV Rocephin dosed per pharmacy; doxycycline 100mg bid Pulmonary toilet with duoneb QID, incentive spirometry continue supplemental oxygen - she does not seem to be requiring more O2 than at baseline (3) Acute worsening of stage 4 chronic kidney disease: bun/cr 77 and 1.98 baseline Cr 1.7-2.2; however BUN increased to 77 likely 2/2 to dehydration gentle hydration with IVF 60cc/hr x 1 L Received 1L in ED repeat bmp in a.m. hx of CHF monitor volume status accordingly (4) DM type 2 (diabetes mellitus, type 2): last A1C 7.2 hold outpt glipizide and tradjenta Lantus/novolog per protocol anticipate higher blood sugars given steroid use (5) CAD (coronary artery disease): hx of BMS in 2008 no chest pain or eg changes continue statin, metoprolol, plavix (6) PVD (peripheral vascular disease): continue plavix and statin hx of aortobifem bypass in past (7) GERD (gastroesophageal reflux disease): continue PPI (8) Dyslipidemia: continue statin (9) HTN (hypertension): blood pressure elevated in ED, likely in setting of SOB continue amlodipine, metoprolol monitor (10) Anemia: H&H stable at 9.6 and 28.8 on iron as outpt normocytic/normochromic monitor iron studies 04/17/19: iron 69, Tsat 27%, TIBC 252 (11) Hypercalcemia: correct ca 11.6 continue IVF repeat Ca in a.m. being followed as outpt PTH 04/17 34 (12) DVT prophylaxis: heparin SQ Q12hr Disposition: admit to med/surg Follow up: PCP Dr Baumann upon discharge, she is a [facility] at home patient, case management consulted Pt was seen and examined in collaboration with Dr. Mensah, please see addendum History of Present Illness Chief Complaint: Shortness of breath and cough x1 week. Primary Care Provider: Dong Baumann MD This is a 79-year-old female who has a significant past medical history of Chronic respiratory failure 2/2 to severe COPD on O2 via NC, T2DM, systolic CHF, CAD, PVD, carotid artery stenosis, HTN, CKD stage IV, GERD, hypercalcemia, history of tobacco abuse who presents to [facility] ED secondary to worsening shortness of breath and cough x1 week. Approximately a week and a half ago she elicits she had a fall when getting up after using a nebulizer treatment. It was mechanical in nature as she tripped over her dog. She developed significant bruising to her left arm and pain. A few days after this she noticed increasing shortness of breath with exertion and dry cough. She was seen by PCP on 04/24 secondary to to fall and again on 04/27 secondary to worsening of shortness of breath and cough. On 04/27 she was prescribed azithromycin and prednisone for likely COPD exacerbation. She states that she did not start her azithromycin and only had 1 dose of the prednisone so far. "I was not sure how much to take." She had a chest x-ray in outpatient setting which revealed hyperinflated lungs but no acute process. Again she complains of worsening shortness of breath with exertion and at rest, dry cough that is occasionally productive of purulent yellow sputum, wheezing, decreased appetite, "dryness." Positive sick contacts with her brother. She denies any fever, chills, sweats, lightheadedness, syncope, chest pain, palpitations, hemoptysis, emesis, abdominal pain, dysuria, increased urgency or frequency with urination, hematuria, melena, hematochezia. Her last BM was 2 days ago which is not unusual for her. She takes MiraLAX occasionally for constipation. Currently weighs 84 pounds and has significant decreased appetite since not feeling well. Denies any significant weight loss in the past month. She currently lives alone at home and ambulates with walker. She does have oxygen at home but only uses at night. Allergies Allergy/AdvReac Type Severity Reaction Status Date / Time codeine Allergy Mild Verified 06/09/16 14:42 amoxicillin Allergy Unknown unknown Verified 08/14/16 18:18 aspirin Allergy Unknown UNKNOWN Verified 06/09/16 14:42 bacitracin Allergy Unknown Rash Verified 09/26/17 21:44 isosorbide Allergy Unknown unknown Verified 08/14/16 18:18 neomycin Allergy Unknown Rash Verified 09/26/17 21:44 polymyxin B Allergy Unknown Rash Verified 09/26/17 21:44 Home Medications Home Medications Medication Instructions Recorded Confirmed Type albuterol sulfate [Ventolin HFA] 2 puff INHALATION Q6H PRN 05/01/19 05/01/19 History amlodipine 5 mg PO DAILY 05/01/19 05/01/19 History atorvastatin 80 mg PO DAILY 05/01/19 05/01/19 History budesonide-formoterol [Symbicort] 2 puff INHALATION BID 05/01/19 05/01/19 History clopidogrel 75 mg PO DAILY 05/01/19 05/01/19 History glipizide 5 mg PO DAILY 05/01/19 05/01/19 History ipratropium-albuterol 3 ml INHALATION Q4H PRN 05/01/19 05/01/19 History ipratropium-albuterol [Combivent 1 puff INHALATION QID 05/01/19 05/01/19 History Respimat] linagliptin [Tradjenta] 5 mg PO DAILY 05/01/19 05/01/19 History metoprolol succinate 100 mg PO DAILY 05/01/19 05/01/19 History mirtazapine 7.5 mg PO HS 05/01/19 05/01/19 History pantoprazole 20 mg PO DAILY 05/01/19 05/01/19 History prednisone 0 mg PO TID 05/01/19 05/01/19 History Past Med/Surg History Medical History (Updated 05/01/19 @ 16:24 by Sabina Pond PA-C) CAD (coronary artery disease) (Chronic) "NSTEMI 01/2009 - BMS to distal left circumflex, cath at that time showed 100% proximal RCA occlusion" CKD (chronic kidney disease), stage IV (Chronic) COPD, severe (Chronic) "oxygen requiring" DM type 2 (diabetes mellitus, type 2) (Chronic) Dyslipidemia (Chronic) Femoral artery aneurysm, right (Chronic) "s/p repair" GERD (gastroesophageal reflux disease) (Chronic) HTN (hypertension) Hypercalcemia Ischemic cardiomyopathy (Chronic) "echo 04/2015- EF 50-55%, grade I diastolic dysfunction" On 05/02/15 18:17 Adele Mathur wrote "echo 2010 - EF 45-50%, grade I diastolic dysfunction" PVD (peripheral vascular disease) (Chronic) Surgical History H/O aorto-femoral bypass (Chronic) History of hysterectomy (Chronic) Hx of appendectomy (Chronic) Hx of cataract surgery (Chronic) S/P carotid endarterectomy (Chronic) "left in 2001, left carotid stent placed 2002" S/P femoral-popliteal bypass surgery (Chronic) Family History (Updated 05/01/19 @ 16:19 by Sabina Pond PA-C) Other Heart disease Social History (Updated 05/01/19 @ 16:19 by Sabina Pond PA-C) Preferred Language: Citizen Of [place] Communication Ability: Effective Data Entry Specialist Required: No Beliefs That Will Affect Care: None marital status: / Current Living Situation: Alone Other Information That Helps Us Care for You: No Feels Safe at Home: Yes Safety Concerns: Feels Safe At This Time Smoking Status: Former smoker Hx Alcohol Use: No Hx Substance Use: No Review of Systems Review of Systems: All systems reviewed & are unremarkable except as noted in HPI & below Physical Exam Physical Exam: Constitutional: Thin, petite, elderly, female, conversational dyspnea, vitals as above, NAD, sitting up in bed, pleasant Head: Normocephalic, Atraumatic Eyes: PERRL, conjunctivae normal, anicteric sclerae ENMT: external ear and nose normal, oropharynx dry mucous membranes Neck: trachea midline, no thyromegaly normal visual inspection Respiratory: Increasedl respiratory effort, lungs clear to auscultation with bilateral inspiratory and expiratory wheeze, no rales rhonchi. Increased inspiratory effort, no accessory muscle use Cardiovascular: RRR, no murmur, no edema Vessels: no JVD or carotid bruit Chest: normal inspection of chest Abdomen: normal bowel sounds, soft, nontender, no hepatosplenomegaly Musculoskeletal: no cyanosis or clubbing, extremities motor strength 5/5 Skin: no rashes, numerous areas of ecchymoses on bilateral pretibial surfaces and bilateral forearms, warm and dry normal turgor Neurologic: PERRL, EOMI, accommodation nl, no face palsy, no dysarthria CN's II-XI intact bilaterally and moves all extremities Psychiatric: A+Ox3, euthymic affect Lymphatic: no cervical or axillary lymphadenopathy : deferred Results & Data Vital Signs (Past 12 Hours) Vital Signs Temp Pulse Pulse Resp BP BP Pulse Ox 05/01/19 15:13 109 H 21 147/69 H 100 05/01/19 15:11 98 H 05/01/19 14:30 98 H 24 147/62 H 99 05/01/19 14:15 98 H 26 H 100 05/01/19 14:00 96 H 24 99 05/01/19 13:45 97 H 24 100 05/01/19 13:30 98 H 24 100 05/01/19 13:15 99 H 26 H 100 05/01/19 13:00 101 H 32 H 141/60 H 100 05/01/19 12:45 101 H 30 H 100 05/01/19 12:32 101 H 23 99 05/01/19 12:31 102 H 22 147/62 H 100 05/01/19 12:30 101 H 23 100 05/01/19 12:15 101 H 32 H 100 05/01/19 12:14 101 H 27 H 100 05/01/19 12:01 102 H 36 H 152/59 H 100 05/01/19 11:54 37.3 C 102 H 103 H 22 152/59 H 152/59 H 100 Laboratory Results Short CBC 05/01/19 05/01/19 Range/Units 12:57 12:57 WBC 10.78 (4.8-10.8) K/uL Hgb 9.6 L (12.0-16.0) g/dL Hct 28.8 L (37-47) % Plt Count 182 (130-400) K/uL BUN 77 H (7-18) mg/dl Creatinine 1.98 H (0.6-1.2) mg/dl BMP 05/01/19 12:57 Sodium 144 Potassium 3.9 Chloride 114 H Carbon Dioxide 21 BUN 77 H Creatinine 1.98 H Glucose 198 H Calcium 10.6 H Cardiac Enzymes 05/01/19 Range/Units 12:57 Troponin I < 0.015 (0-0.045) ng/ml Liver Function 05/01/19 Range/Units 12:57 Total Bilirubin 0.3 (0.2-1) mg/dl AST 27 (15-37) U/L ALT 61 (12-78) U/L Alkaline Phosphatase 292 H (45-117) U/L Albumin 3.0 L (3.4-5.0) gm/dl Diagnostic Findings CXR: IMPRESSION: 1. Suspected pulmonary emphysema 2. No evidence of failure. No evidence of focal pulmonary consolidation Medications Administered Discontinued Medications Sodium Chloride (Nss 1000ml) 500 mls @ 999 mls/hr IV .Q31M ONE Stop: 05/01/19 13:08 Last Infusion: 05/01/19 13:57 Dose: 0 mls/hr Documented by: [id number] Admin: 05/01/19 13:07 Dose: 999 mls/hr Documented by: [id number] Methylprednisolone 60 mg/ (Syringe) 1.96 mls @ 1.5 mls/min IV NOW STA Stop: 05/01/19 15:25 Last Admin: 05/01/19 16:02 Dose: 1.5 mls/min Documented by: [id number] ECG Rate (beats per minute): 113 Rhythm: sinus tachycardia Findings: + PVC Code Status & VTE Plan Code Status DNR VTE Prophylaxis Plan VTE Prophylaxis will be ordered: Yes Supervising Physician Co-Signing Physician Notes ROS-No Headache, No Visual Changes, No Nausea, No Vomiting, No Fever, No Chills, No Neck Pain or Stiffness, No Chest Pain, No Palpitations, + SOB, No OCAMPO, No Cough, No Sputum, + Wheezing, No Abdominal Pain, No Diarrhea, No Hematemesis, No Hemoptysis, No Unexpected Weight Loss, No Flank pain, No Melena, No Hematochezia, No Frequency, No Urgency, No Burning, No Hematuria, No Rashes, No Diaphoresis. Appetite is Normal Physical Exam Gen-AAO x 3, NAD, Afebrile, Cachectic and frail Head-NCAT, EOMI, PERRLA, Anicteric Sclera, No Posterior Pharyngeal Erythema Neck-Supple, No JVD, No Thyromegaly, No Masses, No LAD, No Bruits Lungs-Clear to Auscultation Bilaterally, No Rales, No Rhonchi, No Wheezing, No Crepitus Chest-No S4, +S1, +S2, No S3, No Murmurs, No Rubs, No Gallops, No Ectopy Abdomen-Soft, Bowel Sounds Present, Non Tender, Non Distended, No Hepatomegaly, No Splenomegaly, No Palpable Masses, No Rebound, No Rigidity, No Guarding Musculoskeletal-Full Range of Motion Bilaterally, No CVAT Extremities-No Cyanosis, No Clubbing, No Edema Nuero-Cranial Nerves II-XII grossly intact, Motor WNL, DTRs WNL, Strength WNL, Non Focal Psych-Normal Mood
[2019-05-01] MEDS ORDERED: GLUCAGON FOR INJ 1 MG VIAL SQ PRN (18:37)
[2019-05-01] MEDS ORDERED: GLUCOSE 10 TABS/TUBE PO PRN (18:37)
[2019-05-01] MEDS ORDERED: SODIUM CHLORIDE 0.9% 1000ML 1,000 ML IV SCH (18:37)
[2019-05-01] MEDS ORDERED: ACETAMINOPHEN 325 MG TAB PO PRN (18:37)
[2019-05-01] MEDS ORDERED: DEXTROSE 50% 50 ML SYRINGE IV PRN (18:37)
[2019-05-01] MEDS ORDERED: CARBOHYDRATES FOR HYPOGLYCEMIA PO PRN (18:37)
[2019-05-01] MEDS ORDERED: GLUCOSE 40% GEL 15 GM TUBE PO PRN (18:37)
[2019-05-01] MEDS ORDERED: NITROGLYCERIN SL 0.4 MG/TAB TAB SL PRN (18:37)
[2019-05-01] MEDS ORDERED: ROCEPHIN PHARMACY CONSULT IN PROGRESS PRN (19:14)
[2019-05-01] MEDS: cefTRIAXone SODIUM 1,000 MG in DEXTROSE 5% 50 ML IV SCH (20:26)
[2019-05-01] MEDS: DOXYCYCLINE HYCLATE 100 MG CAP PO SCH (21:05)
[2019-05-01] MEDS: MIRTAZAPINE TAB 15 MG TAB PO SCH (21:05)
[2019-05-01] MEDS: BUDESONIDE/FORMOTEROL FUMARATE 160/4.5 60 PUFFS/INHALER INH SCH (21:06)
[2019-05-01] MEDS: HEPARIN SOD 5,000 UNIT/0.5 ML VIAL SQ SCH (21:09)
[2019-05-01] MEDS: INSULIN GLARGINE SOLOSTAR 100 UNITS/ML 3 ML PEN SC SCH (21:11)
[2019-05-01] MEDS: INSULIN ASPART 100 UNITS/ML 3 ML PEN SC SCH ×2 (21:25)
[2019-05-01] MEDS: ALBUT/IPRATROP 3MG/0.5MG NEB 3 ML VIAL NEB SCH (21:53)
[2019-05-01] MEDS: methylPREDNISolone 40 MG in SYRINGE 0 ML IV SCH (23:39)
[2019-05-02 05:43] LABS: Hematocrit (blood only) 27.6 % (37-47); Hemoglobin 9.1 g/dL (12.0-16.0); Immature Granulocytes # (auto) 0.04 K/uL (0.00-0.02); Immature Granulocytes % (auto) 0.4 %; Lymphocytes # (auto) 0.39 K/uL (1.2-3.4); Lymphocytes % (auto) 3.4 %; Mean Corpuscular Hemoglobin 32.5 pg (25-34); Mean Corpuscular Volume 98.6 fL (80-100); Mean Platelet Volume 9.5 fL (7.4-10.4); Monocytes # (auto) 0.19 K/uL (0.11-0.59); Monocytes % (auto) 1.7 %; Neutrophils # (auto) 10.75 K/uL (1.4-6.5); Neutrophils % (auto) 94.5 %; Platelet Count 175 K/uL (130-400); RDW Coefficient of Variation 14.4 % (11.5-14.5); White Blood Count 11.37 K/uL (4.8-10.8)
[2019-05-02 06:16] LABS: BUN Creatinine Ratio 38.8 (10-20); Calcium 9.7 mg/dl (8.5-10.1); Creatinine Clr Calc Pharmacy 15.2 ml/min; Est GFR (African American) 28.2; Est GFR (Non-African American) 24.3; Estimated Average Glucose 166 mg/dl; Hemoglobin A1C 7.4 % (4.5-5.6)
[2019-05-02] MEDS ORDERED: SODIUM CHLORIDE 0.45 % 1,000 ML IV ONE (07:07)
[2019-05-02] MEDS: methylPREDNISolone 40 MG in SYRINGE 0 ML IV SCH (07:46)
[2019-05-02] MEDS: ALBUT/IPRATROP 3MG/0.5MG NEB 3 ML VIAL NEB SCH ×4 (07:50→19:12)
[2019-05-02] MEDS: HEPARIN SOD 5,000 UNIT/0.5 ML VIAL SQ SCH ×2 (09:00→20:23)
[2019-05-02] MEDS: CLOPIDOGREL BISULFATE 75 MG TAB PO SCH (09:01)
[2019-05-02] MEDS: PANTOprazole 40 MG TAB PO SCH (09:01)
[2019-05-02] MEDS: ATORVASTATIN 40 MG TAB PO SCH (09:01)
[2019-05-02] MEDS: AMLODIPINE BESYLATE 5 MG TAB PO SCH (09:01)
[2019-05-02] MEDS: METOPROLOL SUCC 50MG EXT REL TAB PO SCH (09:01)
[2019-05-02] MEDS: DOXYCYCLINE HYCLATE 100 MG CAP PO SCH ×2 (09:02→20:23)
[2019-05-02] MEDS: POLYETHYLENE (MIRALAX) 17 GM PACK PO SCH (09:02)
[2019-05-02] MEDS: INSULIN GLARGINE SOLOSTAR 100 UNITS/ML 3 ML PEN SC SCH (09:04)
[2019-05-02] MEDS: BUDESONIDE/FORMOTEROL FUMARATE 160/4.5 60 PUFFS/INHALER INH SCH ×2 (09:05→20:24)
[2019-05-02] MEDS: INSULIN ASPART 100 UNITS/ML 3 ML PEN SC SCH ×4 (09:05→20:28)
[2019-05-02] MEDS ORDERED: ACETAMINOPHEN 325 MG TAB PO PRN (12:25)
[2019-05-02] MEDS ORDERED: INSULIN GLARGINE SOLOSTAR 100 UNITS/ML 3 ML PEN SC STA (12:40)
[2019-05-02] MEDS: SODIUM CHLORIDE 0.9% 1000ML 1,000 ML IV SCH (12:43)
--- NOTE | 2019-05-02 12:48 | Hospitalist Progress Note ---
Date of Service May 02, 2019 Assessment & Plan (1) Chronic respiratory failure: (2) Acute exacerbation of chronic obstructive airways disease: -This is a 79-year-old female who has a significant past medical history of Chronic respiratory failure 2/2 severe COPD on chronic O2, T2DM, systolic CHF, CAD, PVD, carotid artery stenosis, HTN, CKD stage IV, GERD, hypercalcemia, history of tobacco abuse who presents to [facility] ED secondary to worsening shortness of breath and cough x1 week. -In ED chest x-ray revealed emphysema but no acute cardiopulmonary abnormality Negative for influenza, WBC 10.78, H&H 9.6 and 28.8, platelet 182, elevated BUN and creatinine 77 and 1.98, glucose 198, calcium 10.6 Troponin and procalcitonin WNL -patient was admitted for COPD exacerbation -patient was started initially on steroids as IV methylprednisolone 40mg Q8hr -symptom improved by 05/02/19, plan to transition to oral prednisone -continue empiric respiratory antibiotic of doxycycline (no clear role of dual coverage with a cephalosporin because no evidence of pneumonia) (3) Acute worsening of stage 4 chronic kidney disease: -baseline Cr 1.7 to 2.2 -admission creatinine elevated form pre-renal kidney injury from dehydration -monitor creatinine while on IV fluids (4) DM type 2 (diabetes mellitus, type 2): Type 2 diabetes mellitus without termite helper current use of insulin with hy perglycemia -previous A1C 7.2 -hold outpt glipizide and tradjenta -on Lantus and sliding scale insulin while in the hospital -hyperglycemia on 05/02/19 (glucose above 300) contributed by recent IV met hylprednisone use for respiratory treatment -will repeat labs to follow the blood glucose -diabetic diet -Aquaculture Farm Manager consulted (5) CAD (coronary artery disease): -continue statin, metoprolol, plavix (6) PVD (peripheral vascular disease): -history of aortobifemoral bypass in past -continue plavix and statin (7) GERD (gastroesophageal reflux disease): -continue PPI (8) Dyslipidemia: -continue statin (9) HTN (hypertension): -continue amlodipine, metoprolol (10) Anemia: -chronic anemia -normocytic/normochromic -on iron as outpatient -monitor Hgb (11) Hypercalcemia: -normal PTH of 34 pg/ml as outpatient on 04/17/19 -elevated corrected calcium of 11.6 on admission -calcium levels downtrended with IV fluids -check Vitamin D levels (12) DVT prophylaxis: heparin SQ Q12hr Subjective Patient seen and examined. Patient sitting up in chair. On nasal cannula oxygen. She reporst her breathing feels better. no wheezing. denies chest pain. denies abdominal pain. Patient's blood sugars have been elevated from recent respiratory steroids. No dizziness. No lightheadedness Review of Systems Review of Systems: All systems reviewed & are unremarkable except as noted in HPI & below Physical Exam Constitutional: + thin Eyes: PERRL, conjunctivae normal, anicteric sclerae EOM intact bilaterally ENMT: external ear and nose normal, oropharynx normal Neck: normal visual inspection Respiratory: normal respiratory effort, lungs clear to auscultation Cardiovascular: Rate/Rhythm: regular rate and regular rhythm Gastrointestinal (Abdomen): normal bowel sounds, soft, nontender, no hepatosplenomegaly Musculoskeletal: Head/Neck/Chest: normocephalic and head atraumatic Neurologic: PERRL, EOMI, accommodation nl, no face palsy, no dysarthria Psychiatric: A+Ox3, euthymic affect Results & Data Vital Signs (Past 12 Hours) Vital Signs Temp Pulse Resp BP Pulse Ox 05/02/19 11:05 91 H 16 99 05/02/19 07:51 87 18 99 05/02/19 07:30 36.8 C 86 17 138/66 97
[2019-05-02] MEDS: predniSONE 20 MG TAB PO SCH ×2 (13:55→20:24)
[2019-05-02 14:48] LABS: Albumin Level 2.9 gm/dl (3.4-5.0); BUN Creatinine Ratio 33.6 (10-20); Calcium 9.9 mg/dl (8.5-10.1); Creatinine Clr Calc Pharmacy 13.6 ml/min; Est GFR (African American) 24.7; Est GFR (Non-African American) 21.3; Potassium 3.8 mmol/L (3.5-5.1)
[2019-05-02 14:51] LABS: Albumin Globulin Ratio 0.8 (0.9-2); Bilirubin,Total 0.2 mg/dl (0.2-1); Globulin 3.4 gm/dl (2.5-4.0); Total Protein 6.3 gm/dl (6.4-8.2)
[2019-05-02] MEDS ORDERED: PHARMACY GLYCEMIC MGMT CONSULT PRN (18:06)
[2019-05-02] MEDS ORDERED: INSULIN GLARGINE SOLOSTAR 100 UNITS/ML 3 ML PEN SC ONE (18:15)
[2019-05-02] MEDS: MIRTAZAPINE TAB 15 MG TAB PO SCH (20:24)
[2019-05-02] MEDS: cefTRIAXone SODIUM 1,000 MG in DEXTROSE 5% 50 ML IV SCH (20:29)
[2019-05-03] MEDS: SODIUM CHLORIDE 0.9% 1000ML 1,000 ML IV SCH (05:19)
[2019-05-03] MEDS: ALBUT/IPRATROP 3MG/0.5MG NEB 3 ML VIAL NEB SCH ×2 (07:25→11:07)
[2019-05-03 08:20] LABS: Albumin Level 2.5 gm/dl (3.4-5.0); BUN Creatinine Ratio 41.1 (10-20); Calcium 9.1 mg/dl (8.5-10.1); Creatinine Clr Calc Pharmacy 15.5 ml/min; Est GFR (African American) 28.9; Est GFR (Non-African American) 24.9; Potassium 3.9 mmol/L (3.5-5.1)
[2019-05-03 08:23] LABS: Albumin Globulin Ratio 0.8 (0.9-2); Bilirubin,Total 0.2 mg/dl (0.2-1); Total Protein 5.5 gm/dl (6.4-8.2)
[2019-05-03] MEDS: INSULIN ASPART 100 UNITS/ML 3 ML PEN SC SCH (08:49)
[2019-05-03] MEDS: HEPARIN SOD 5,000 UNIT/0.5 ML VIAL SQ SCH (08:49)
[2019-05-03] MEDS: POLYETHYLENE (MIRALAX) 17 GM PACK PO SCH (08:50)
[2019-05-03] MEDS: METOPROLOL SUCC 50MG EXT REL TAB PO SCH (08:51)
[2019-05-03] MEDS: ATORVASTATIN 40 MG TAB PO SCH (08:51)
[2019-05-03] MEDS: AMLODIPINE BESYLATE 5 MG TAB PO SCH (08:51)
[2019-05-03] MEDS: CLOPIDOGREL BISULFATE 75 MG TAB PO SCH (08:51)
[2019-05-03] MEDS: PANTOprazole 40 MG TAB PO SCH (08:51)
[2019-05-03] MEDS ORDERED: predniSONE 20 MG TAB PO SCH (09:00)
[2019-05-03] MEDS: predniSONE 20 MG TAB PO SCH (09:12)
[2019-05-03] MEDS: BUDESONIDE/FORMOTEROL FUMARATE 160/4.5 60 PUFFS/INHALER INH SCH (09:12)
[2019-05-03] MEDS: DOXYCYCLINE HYCLATE 100 MG CAP PO SCH (09:12)
[2019-05-03] MEDS ORDERED: INSULIN HUMAN NPH SC SCH (09:15)
--- NOTE | 2019-05-03 12:08 | Hospitalist Progress Note ---
Date of Service May 03, 2019 Assessment & Plan (1) Chronic respiratory failure: (2) Acute exacerbation of chronic obstructive airways disease: -This is a 79-year-old female who has a significant past medical history of Chronic respiratory failure 2/2 severe COPD on chronic O2, T2DM, systolic CHF, CAD, PVD, carotid artery stenosis, HTN, CKD stage IV, GERD, hypercalcemia, history of tobacco abuse who presents to [facility] ED secondary to worsening shortness of breath and cough x1 week. -In ED chest x-ray revealed emphysema but no acute cardiopulmonary abnormality Negative for influenza, WBC 10.78, H&H 9.6 and 28.8, platelet 182, elevated BUN and creatinine 77 and 1.98, glucose 198, calcium 10.6 Troponin and procalcitonin WNL -patient was admitted for COPD exacerbation -patient was started initially on steroids as IV methylprednisolone 40mg Q8hr -symptom improved by 05/02/19, plan to transition to oral prednisone -continue empiric respiratory antibiotic of doxycycline (no clear role of dual coverage with a cephalosporin because no evidence of pneumonia) Discharge Medications of Doxycycline 100 mg twice a day and prednisone 20 mg daily for 3 more days sent electronically to [facility] at [address] [place] [phone] appointments 05/07/2019 8:00 AM Provider Riparminder [facility] Department [facility] 05/08/2019 1:10 PM Provider Dong Baumann MD Department [facility] (3) Acute worsening of stage 4 chronic kidney disease: -baseline Cr 1.7 to 2.2 -admission creatinine elevated form pre-renal kidney injury from dehydration -creatinine 1.86 on 05/03/19. acute kidney injury resolved (4) DM type 2 (diabetes mellitus, type 2): Type 2 diabetes mellitus without fpc current use of insulin with hyperglycemia -previous A1C 7.2 -had hed outpatient glipizide and tradjenta -on Lantus and sliding scale insulin while in the hospital -hyperglycemia on 05/02/19 (glucose above 300) contributed by recent IV methylprednisone use for respiratory treatment -Patient is noted to be sensitive to steroids as this led to temporary insulin use in the hospital -glucose under 150 on 05/03/19 -patient to resume home diabetes medications on discharge -Patient should have primary care provider check glucose levels and calcium levels on follow up (5) CAD (coronary artery disease): -continue statin, metoprolol, plavix (6) PVD (peripheral vascular disease): -history of aortobifemoral bypass in past -continue plavix and statin (7) GERD (gastroesophageal reflux disease): -continue PPI (8) Dyslipidemia: -continue statin (9) HTN (hypertension): -continue amlodipine, metoprolol (10) Anemia: -chronic anemia -normocytic/normochromic -on iron as outpatient (11) Hypercalcemia: -normal PTH of 34 pg/ml as outpatient on 04/17/19; elevated corrected calcium of 11.6 on admission -patient received IV fluids on this admission -discharge serum calcium level of 9.1 mg/dl but with albumin of 2.5 the corrected calcium level is 10.3 mg/dl. normal 25-OH vitamin D as 51 ng/ml) (12) DVT prophylaxis: -heparin SQ Q12hr while in patient Discharge Diagnosis Acute exacerbation of chronic obstructive airways disease, Chronic respiratory failure, Acute kidney injury on stage 4 chronic kidney disease, Type 2 diabetes mellitus without fpc current use of insulin with hyperglycemia, Hypercalcemia Subjective Patient seen and examined at bedside. On chronic nasal cannula oxygen. no acute distress. no wheezing. moving air in and out well from lungs. no chest pain. no abdominal pain. no vomiting. no dizziness. glucose controlled with insulin. discharge plans discussed with patient Review of Systems Review of Systems: All systems reviewed & are unremarkable except as noted in HPI & below Physical Exam Constitutional: comfortable Eyes: PERRL, conjunctivae normal, anicteric sclerae EOM intact bilaterally ENMT: external ear and nose normal, oropharynx normal Neck: normal visual inspection Respiratory: normal respiratory effort Cardiovascular: Rate/Rhythm: regular rate and regular rhythm Gastrointestinal (Abdomen): normal bowel sounds, soft, nontender, no hepatosplenomegaly Musculoskeletal: Head/Neck/Chest: normocephalic and head atraumatic Neurologic: moves all extremities Psychiatric: A+Ox3, euthymic affect Results & Data Vital Signs (Past 12 Hours) Vital Signs Temp Pulse Resp BP Pulse Ox 05/03/19 11:09 84 18 90 05/03/19 07:25 88 18 97 05/03/19 07:18 37.0 C 86 18 159/73 H 94
--- NOTE | 2019-05-03 12:16 | Discharge Summary ---
Date of Service May 03, 2019 Admission HPI Per Admitting Provider This is a 79-year-old female who has a significant past medical history of Chronic respiratory failure 2/2 to severe COPD on O2 via NC, T2DM, systolic CHF, CAD, PVD, carotid artery stenosis, HTN, CKD stage IV, GERD, hypercalcemia, history of tobacco abuse who presents to [facility] ED secondary to worsening shortness of breath and cough x1 week. Approximately a week and a half ago she elicits she had a fall when getting up after using a nebulizer treatment. It was mechanical in nature as she tripped over her dog. She developed significant bruising to her left arm and pain. A few days after this she noticed increasing shortness of breath with exertion and dry cough. She was seen by PCP on 04/24 secondary to to fall and again on 04/27 secondary to worsening of shortness of breath and cough. On 04/27 she was prescribed azithromycin and prednisone for likely COPD exacerbation. She states that she did not start her azithromycin and only had 1 dose of the prednisone so far. "I was not sure how much to take." She had a chest x-ray in outpatient setting which revealed hyperinflated lungs but no acute process. Again she complains of worsening shortness of breath with exertion and at rest, dry cough that is occasionally productive of purulent yellow sputum, wheezing, decreased appetite, "dryness." Positive sick contacts with her brother. She denies any fever, chills, sweats, lightheadedness, syncope, chest pain, palpitations, hemoptysis, emesis, abdominal pain, dysuria, increased urgency or frequency with urination, hematuria, melena, hematochezia. Her last BM was 2 days ago which is not unusual for her. She takes MiraLAX occasionally for constipation. Currently weighs 84 pounds and has significant decreased appetite since not feeling well. Denies any significant weight loss in the past month. She currently lives alone at home and ambulates with walker. She does have oxygen at home but only uses at night. Admission Exam Per Admitting Provider Physical Exam Physical Exam: Constitutional: Thin, petite, elderly, female, conversational dyspnea, vitals as above, NAD, sitting up in bed, pleasant Head: Normocephalic, Atraumatic Eyes: PERRL, conjunctivae normal, anicteric sclerae ENMT: external ear and nose normal, oropharynx dry mucous membranes Neck: trachea midline, no thyromegaly normal visual inspection Respiratory: Increasedl respiratory effort, lungs clear to auscultation with bilateral inspiratory and expiratory wheeze, no rales rhonchi. Increased inspiratory effort, no accessory muscle use Cardiovascular: RRR, no murmur, no edema Vessels: no JVD or carotid bruit Chest: normal inspection of chest Abdomen: normal bowel sounds, soft, nontender, no hepatosplenomegaly Musculoskeletal: no cyanosis or clubbing, extremities motor strength 5/5 Skin: no rashes, numerous areas of ecchymoses on bilateral pretibial surfaces and bilateral forearms, warm and dry normal turgor Neurologic: PERRL, EOMI, accommodation nl, no face palsy, no dysarthria CN's II-XI intact bilaterally and moves all extremities Psychiatric: A+Ox3, euthymic affect Lymphatic: no cervical or axillary lymphadenopathy : deferred Principal Diagnosis Acute exacerbation of chronic obstructive airways disease, Chronic respiratory failure, Acute kidney injury on stage 4 chronic kidney disease, Type 2 diabetes 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 with hyperglycemia, Hypercalcemia Discharge Exam Constitutional + thin and comfortable Eyes PERRL, conjunctivae normal, anicteric sclerae EOM intact bilaterally ENMT external ear and nose normal, oropharynx normal Neck normal visual inspection Respiratory normal respiratory effort, lungs clear to auscultation normal respiratory effort Cardiovascular Rate/Rhythm: regular rate and regular rhythm Gastrointestinal (Abdomen) normal bowel sounds, soft, nontender, no hepatosplenomegaly Musculoskeletal Head/Neck/Chest: normocephalic and head atraumatic Neurologic PERRL, EOMI, accommodation nl, no face palsy, no dysarthria moves all extremities Psychiatric A+Ox3, euthymic affect Discharge Data Allergies Allergy/AdvReac Type Severity Reaction Status Date / Time codeine Allergy Mild Verified 06/09/16 14:42 amoxicillin Allergy Unknown unknown Verified 08/14/16 18:18 aspirin Allergy Unknown UNKNOWN Verified 06/09/16 14:42 bacitracin Allergy Unknown Rash Verified 09/26/17 21:44 isosorbide Allergy Unknown unknown Verified 08/14/16 18:18 neomycin Allergy Unknown Rash Verified 09/26/17 21:44 polymyxin B Allergy Unknown Rash Verified 09/26/17 21:44 Consultations 11/26/19 15:24 ED Decision to Admit Stat 05/01/19 18:37 Consult Case Management - Discharge Planning Routine Hospital Course (1) Chronic respiratory failure: (2) Acute exacerbation of chronic obstructive airways disease: -This is a 79-year-old female who has a significant past medical history of Chronic respiratory failure 2/2 severe COPD on chronic O2, T2DM, systolic CHF, CAD, PVD, carotid artery stenosis, HTN, CKD stage IV, GERD, hypercalcemia, history of tobacco abuse who presents to [facility] ED secondary to worsening shortness of breath and cough x1 week. -In ED chest x-ray revealed emphysema but no acute cardiopulmonary abnormality Negative for influenza, WBC 10.78, H&H 9.6 and 28.8, platelet 182, elevated BUN and creatinine 77 and 1.98, glucose 198, calcium 10.6 Troponin and procalcitonin WNL -patient was admitted for COPD exacerbation -patient was started initially on steroids as IV methylprednisolone 40mg Q8hr -symptom improved by 05/02/19, plan to transition to oral prednisone -continue empiric respiratory antibiotic of doxycycline (no clear role of dual coverage with a cephalosporin because no evidence of pneumonia) Discharge Medications of Doxycycline 100 mg twice a day and prednisone 20 mg daily for 3 more days sent electronically to [facility] at [address] [place] [id number] appointments 05/07/2019 8:00 AM Provider Yandy [facility] Department [facility] 05/08/2019 1:10 PM Provider Dong Baumann MD Department Family [facility] (3) Acute worsening of stage 4 chronic kidney disease: -baseline Cr 1.7 to 2.2 -admission creatinine elevated form pre-renal kidney injury from dehydration -creatinine 1.86 on 05/03/19. acute kidney injury resolved (4) DM type 2 (diabetes mellitus, type 2): Type 2 diabetes mellitus without alf current use of insulin with hyperglycemia -previous A1C 7.2 -had hed outpatient glipizide and tradjenta -on Lantus and sliding scale insulin while in the hospital -hyperglycemia on 05/02/19 (glucose above 300) contributed by recent IV methylprednisone use for respiratory treatment -Patient is noted to be sensitive to steroids as this led to temporary insulin use in the hospital -glucose under 150 on 05/03/19 -patient to resume home diabetes medications on discharge -Patient should have primary care provider check glucose levels and calcium levels on follow up (5) CAD (coronary artery disease): -continue statin, metoprolol, plavix (6) PVD (peripheral vascular disease): -history of aortobifemoral bypass in past -continue plavix and statin (7) GERD (gastroesophageal reflux disease): -continue PPI (8) Dyslipidemia: -continue statin (9) HTN (hypertension): -continue amlodipine, metoprolol (10) Anemia: -chronic anemia -normocytic/normochromic -on iron as outpatient (11) Hypercalcemia: -normal PTH of 34 pg/ml as outpatient on 04/17/19; elevated corrected calcium of 11.6 on admission -patient received IV fluids on this admission -discharge serum calcium level of 9.1 mg/dl but with albumin of 2.5 the corrected calcium level is 10.3 mg/dl. normal 25-OH vitamin D as 51 ng/ml) (12) DVT prophylaxis: -heparin SQ Q12hr while in patient Discharge Diagnosis Acute exacerbation of chronic obstructive airways disease, Chronic respiratory failure, Acute kidney injury on stage 4 chronic kidney disease, Type 2 diabetes mellitus without alf current use of insulin with hyperglycemia, Hypercalcemia Total Time Total Time Spent Total Time Spent (In Minutes): 40 minutes Total Time Includes: Examination of the Patient, Discharge Planning, Medication Reconciliation and Communication With Other Providers Discharge Plan Discharge Items Patient Disposition: Home - Home Health Services Reason For Visit: COPD EXACERBATION Discharge Diagnosis: Acute exacerbation of chronic obstructive airways disease, Chronic respiratory failure, Acute kidney injury on stage 4 chronic kidney disease, Type 2 diabetes mellitus without alf current use of insulin with hyperglycemia, Hypercalcemia Condition on Discharge: Good Activity: Resume your previous activity Non-emergency contact: Primary Care Provider Call non-emergency contact if: you have any medication questions Follow-up/Referrals: Dong Baumann MD [Primary Care Provider] - Diet: Carb Consistent or DM2 Addtl Attending Provider Instructions: Discharge Medications of Doxycycline 100 mg twice a day and prednisone 20 mg daily for 3 more days sent electronically to [facility] at [address] [place] [id number] Patient should have primary care provider check glucose levels and calcium levels on follow up (Patient is noted to be sensitive to steroids as this led to temporary insulin use in the hospital) (normal PTH of 34 pg/ml as outpatient on 04/17/19; elevated corrected calcium of 11.6 on admissiondischarge serum calcium level of 9.1 mg/dl but with albumin of 2.5 the corrected calcium level is 10.3 mg/dl. normal 25-OH vitamin D as 51 ng/ml) 05/07/2019 8:00 AM Provider Yandy Gomez [place] Department [facility] 05/08/2019 1:10 PM Provider Dong Baumann MD Department [facility] Pending Studies at Discharge: No Stand-Alone Forms: My [facility], Smoking Cessation Medications and DC Order Prescriptions: New doxycycline hyclate 100 mg Capsule 100 mg PO BID 5 Days Qty: 10 RF: 0 prednisone 20 mg Tablet 20 mg PO DAILY 3 Days Qty: 3 RF: 0 Continued ipratropium-albuterol 0.5 mg-3 mg(2.5 mg base)/3 mL solution for nebulization 3 ml INHALATION Q4H PRN (Reason: Shortness Of Breath) RF: 0 metoprolol succinate 100 mg tablet extended release 24 hr 100 mg PO DAILY RF: 0 clopidogrel 75 mg tablet 75 mg PO DAILY RF: 0 amlodipine 5 mg tablet 5 mg PO DAILY RF: 0 albuterol sulfate [Ventolin HFA] 90 mcg/actuation HFA aerosol inhaler 2 puff INHALATION Q6H PRN (Reason: Shortness Of Breath) RF: 0 glipizide 5 mg tablet 5 mg PO DAILY RF: 0 mirtazapine 7.5 mg tablet 7.5 mg PO HS RF: 0 Symbicort 160-4.5 mcg/actuation HFA aerosol inhaler 2 puff INHALATION BID RF: 0 Tradjenta 5 mg tablet 5 mg PO DAILY RF: 0 pantoprazole 20 mg Tablet,Delayed Release (Dr/Ec) 20 mg PO DAILY RF: 0 atorvastatin 80 mg tablet 80 mg PO DAILY RF: 0 Combivent Respimat 20-100 mcg/actuation mist 1 puff INHALATION QID RF: 0 Discontinued prednisone 20 mg Tablet 0 mg PO TID RF: 0 Discharge Orders: Discharge Order (Routine); Ordered 05/03/19 Ordered By: Catracho Londono/Other Patient Handouts: COPD, COPD Dc, Breathing Controlled Dc Admission Data Admit Date/Time: 05/01/19 18:29 Attending Provider: Catracho Orozco Admit Provider: Catracho Mensah Primary Care Provider: Dong Baumann Other Providers: Catracho Mensah
== END 2019-05-03 12:15 | disposition home or self-care (01) | DRG 191 ==
LOC: ED 11:54 → 3N 18:11 → SUATTDRO 18:29

== ENCOUNTER 2019-12-25 09:22 | Inpatient (IN) ==
--- NOTE | 2019-12-25 09:47 | Emergency Department Note ---
History of Present Illness General Chief complaint: Abnormal Labs/Diagnostic Testing Time Seen by Provider: 12/25/19 09:28 Source: patient, EMS, RN notes reviewed and old records reviewed Mode of arrival: EMS Limitations: no limitations History of Present Illness Provider complaint: rigors Onset (ago): day(s) 1 Location: lower extremity and right Radiation: non-radiation Severity: mild Pain Consistency: + constant Maximum Pain Intensity: 2 Current Pain Intensity: 2 Quality: + burning Relieved By: + immobilization Exacerbated By: + movement Associated symptoms: + fever/chills; no confusion, no chest pain, no diaphoresis, no headaches and no nausea/vomiting Treatments prior to arrival: none This is an 79-year-old female who was placed on an antibiotic for a wound to the right leg. Since that time the patient has been experiencing skin that is been peeling on her fingers. She denies any ulcers in her mouth or on her gums. The patient is complaining of feeling cold. The antibiotic was changed by home nursing staff. Home Medications Home Medications Medication Instructions Recorded Confirmed Type Combivent Respimat 1 puff INHALATION QID 05/01/19 12/25/19 History Tradjenta 5 mg PO DAILY 05/01/19 12/25/19 History albuterol sulfate [Ventolin HFA] 2 puff INHALATION Q6H PRN 05/01/19 12/25/19 History atorvastatin 80 mg PO DAILY 05/01/19 12/25/19 History budesonide-formoterol [Symbicort] 2 puff INHALATION BID 05/01/19 12/25/19 History clopidogrel 75 mg PO DAILY 05/01/19 12/25/19 History glipizide 5 mg PO DAILY 05/01/19 12/25/19 History ipratropium-albuterol 3 ml INHALATION Q4H PRN 05/01/19 12/25/19 History metoprolol succinate 100 mg PO DAILY 05/01/19 12/25/19 History mirtazapine 7.5 mg PO HS 05/01/19 12/25/19 History pantoprazole 20 mg PO DAILY 05/01/19 12/25/19 History levofloxacin 250 mg PO DAILY 12/25/19 12/25/19 History prednisone 20 mg PO DIRECTED 12/25/19 12/25/19 History Allergies Allergy/AdvReac Type Severity Reaction Status Date / Time codeine Allergy Mild Verified 12/17/19 10:02 amoxicillin Allergy Unknown unknown Verified 12/17/19 10:02 aspirin Allergy Unknown UNKNOWN Verified 12/17/19 10:02 bacitracin Allergy Unknown Rash Verified 12/17/19 10:02 isosorbide Allergy Unknown unknown Verified 12/17/19 10:02 neomycin Allergy Unknown Rash Verified 12/17/19 10:02 polymyxin B Allergy Unknown Rash Verified 12/17/19 10:02 Past Med/Surg History Medical History CAD (coronary artery disease) (Chronic) "NSTEMI 01/2009 - BMS to distal left circumflex, cath at that time showed 100% proximal RCA occlusion" CKD (chronic kidney disease), stage IV (Chronic) COPD, severe (Chronic) "oxygen requiring" DM type 2 (diabetes mellitus, type 2) (Chronic) Dyslipidemia (Chronic) Femoral artery aneurysm, right (Chronic) "s/p repair" GERD (gastroesophageal reflux disease) (Chronic) HTN (hypertension) Hypercalcemia Iron deficiency anemia Ischemic cardiomyopathy (Chronic) "echo 04/2015- EF 50-55%, grade I diastolic dysfunction" On 05/02/15 18:17 Adele Mathur wrote "echo 2010 - EF 45-50%, grade I diastolic dysfunction" Nocturnal hypoxemia PVD (peripheral vascular disease) (Chronic) Surgical History H/O aorto-femoral bypass (Chronic) History of hysterectomy (Chronic) Hx of appendectomy (Chronic) Hx of cataract surgery (Chronic) S/P carotid endarterectomy (Chronic) "left in 2001, left carotid stent placed 2002" S/P femoral-popliteal bypass surgery (Chronic) Family History Other Heart disease Denies family history of Diabetes COPD (chronic obstructive pulmonary disease) Social History Smoking Status: Former smoker Hx Alcohol Use: No Hx Substance Use: No Preferred Language: Yakut Communication Ability: Effective Deep Tissue Massage Therapist Required: No Beliefs That Will Affect Care: None marital status: / Current Living Situation: Alone Other Information That Helps Us Care for You: No Feels Safe at Home: Yes Safety Concerns: Feels Safe At This Time Review of Systems A total of 10 systems reviewed and were otherwise negative Physical Exam Vital Signs Vital Signs - 24 hr 12/25/19 09:31 12/25/19 10:46 Temperature 37.0 C Temperature Source Oral Pulse Rate 104 H Pulse Rate [Apical] 106 H Respiratory Rate 24 20 Blood Pressure 92/64 L Blood Pressure [Right Arm] 150/62 H Blood Pressure Mean 73 Blood Pressure Mean [Right Arm] 91 Pulse Oximetry 98 100 Oxygen Delivery Method Room Air Sepsis Recent Fever Within 48 Hours No Sepsis New/Unexplained Change in Mental Status N/A Sepsis Action Taken by Nursing No Action Required VITAL SIGNS - Vital signs and nursing notes were reviewed. GENERAL - 79-year-old female appearing stated age who is in no acute distress. Communicates well with provider and answers questions appropriately. SKIN - Pt has a upper dermis peeling present on tips of fingers as well as around wound to left leg. HEAD - NC/AT. EYES - PERRL with EOMI bilaterally. Sclera anicteric. Palpebral conjunctiva p ink and moist with no injection noted. EARS - No deformities of external structures noted on gross examination bilaterally. No pain elicited with palpation of the tragus bilaterally. External auditory canals without discharge or otorrhea. Tympanic membranes pearly lewis without retraction or bulging. No fluid or purulent material visualized behind the TM. Handle of malleus, umbo, cone of light, pars tensa/flaccid all easily visualized. NOSE - Midline and without cyanosis. No epistaxis or purulent drainage noted. Septum midline without deviation or septal hematoma noted. MOUTH/OROPHARYNX - Without perioral cyanosis. Buccal mucosa pink and moist and without leukoplakia. Tongue midline with equal elevation of palate bilaterally. No tonsillar hypertrophy, erythema, or exudates noted. dentition noted. NECK - Neck with FROM. Supple to palpation. lymphadenopathy noted. No nuchal rigidity. LUNGS - Chest wall symmetric without accessory muscle use, intercostals retractions, or central cyanosis. Normal vesicular breath sounds CTA B/L. No wheezes, rales, or rhonchi appreciated. CARDIAC - RRR with S1/S2. No murmur, rubs, or gallops appreciated. ABDOMEN - Abdominal contour without pulsations or visible masses. BS normoactive all four quadrants. No tenderness, palpable masses, hepato splenomegaly, or ascites noted. EXTREMITIES - No clubbing or peripheral cyanosis. No pretibial edema present. +3/5 radial, posterior tibial, and dorsalis pedis pulses palpated throughout. +5/5 strength noted in UE/LE bilaterally. NEUROLOGIC - Cranial nerves II through XII grossly intact. Sensory intact to light touch throughout. Patellar reflexes +2/4. PSYCH - A&Ox3 and cooperates fully with examiner. Pt is very pleasant and interacts well with examiner. Course Administered Medications Albuterol (Ventolin Hfa) 2 puffs INH QIDR ANA Stop: 01/24/20 14:59 Last Admin: 12/25/19 19:11 Dose: Not Given Documented by: [id number] Admin: 12/25/19 15:09 Dose: 2 puffs Documented by: [id number] Ferrous Sulfate (Feosol) 325 mg PO QAM [facility] Stop: 01/24/20 14:29 Last Admin: 12/25/19 17:19 Dose: 325 mg Documented by: [id number] Aztreonam 1,000 mg/ Dextrose 110 mls @ 110 mls/hr IV Q8H [facility]; Protocol Stop: 01/01/20 19:59 Last Infusion: 12/26/19 04:48 Dose: 0 mls/hr Documented by: [id number] Admin: 12/26/19 03:10 Dose: 110 mls/hr Documented by: [id number] Infusion: 12/25/19 20:55 Dose: 0 mls/hr Documented by: [id number] Admin: 12/25/19 19:55 Dose: 110 mls/hr Documented by: [id number] Insulin Aspart (Novolog Flexpen) 0 units SC ACHS [facility] Stop: 01/24/20 16:29 Last Admin: 12/25/19 20:27 Dose: 2 units Documented by: [id number] Cosigned by: [id number] Admin: 12/25/19 17:20 Dose: 3 units Documented by: [id number] Cosigned by: [id number] Ipratropium Dumont (Atrovent Hfa) 1 puffs INH QIDR ANA Stop: 01/24/20 14:59 Last Admin: 12/25/19 19:11 Dose: Not Given Documented by: [id number] Admin: 12/25/19 15:08 Dose: 1 puffs Documented by: [id number] Mirtazapine (Remeron) 7.5 mg PO HS ANA Stop: 01/24/20 20:59 Last Admin: 12/25/19 19:58 Dose: 7.5 mg Documented by: [id number] Discontinued Medications Sodium Chloride (Nss 1000ml) 1,000 mls @ 999 mls/hr IV .Q1H1M ONE Stop: 12/25/19 11:57 Last Infusion: 12/25/19 15:13 Dose: 0 mls/hr Documented by: [id number] Admin: 12/25/19 12:13 Dose: 999 mls/hr Documented by: [id number] Sodium Chloride (Nss 1000ml) 500 mls @ 999 mls/hr IV .Q31M ONE Stop: 12/25/19 11:30 Last Admin: 12/25/19 12:14 Dose: Not Given Documented by: [id number] Aztreonam 2,000 mg/ Dextrose 110 mls @ 100 mls/hr IV NOW STA; Protocol Stop: 12/25/19 12:18 Last Infusion: 12/25/19 15:13 Dose: 0 mls/hr Documented by: [id number] Admin: 12/25/19 12:13 Dose: 100 mls/hr Documented by: [id number] Daptomycin 225 mg/ Syringe 4.5 mls @ 2.25 mls/min IV NOW ONE; Protocol Stop: 12/25/19 11:14 Last Admin: 12/25/19 12:13 Dose: 2.25 mls/min Documented by: [id number] Critical Care Time I have personally spent greater than 30 minutes of critical care time in the direct management of this patient. This includes bedside care, interpretation of diagnostic studies, and testing, discussion with consultants, patient, and family members, and other required patient management activities. This 30 minutes is in excess of all separately billable procedures. Medical Decision Making Differential Diagnosis Sepsis, UTI, pneumonia, metabolic, electrolyte abnormalities, cardiac sources, intracerebral event, toxicologic, neurologic, as well as other pathologies. Medical Records Attestation: I reviewed the patient's medical records. Home Medications Current Medication List: was personally reviewed by me Laboratory Data Attestation: I reviewed the patient's lab results. Result diagrams: 12/26/19 05:48 12/26/19 05:48 Lab Results 12/25/19 12/25/19 12/25/19 Range/Units 10:21 10:23 10:23 WBC 11.57 H (4.8-10.8) K/uL RBC 2.55 L (4.2-5.4) M/uL Hgb 8.3 L (12.0-16.0) g/dL Hct 24.5 L (37-47) % MCV 96.1 (80-100) fL MCH 32.5 (25-34) pg MCHC 33.9 (32-36) g/dL RDW Std Deviation 49.2 H (36.4-46.3) fL RDW Coeff of Leslie 13.9 (11.5-14.5) % Plt Count 124 L (130-400) K/uL MPV 9.5 (7.4-10.4) fL Immature Gran % (Auto) 0.4 % Neut % (Auto) 92.0 % Lymph % (Auto) 4.1 % Payette % (Auto) 3.5 % Eos % (Auto) 0.0 % Baso % (Auto) 0.0 % Neut # (Auto) 10.64 H (1.4-6.5) K/uL Lymph # (Auto) 0.48 L (1.2-3.4) K/uL Payette # (Auto) 0.40 (0.11-0.59) K/uL Eos # (Auto) 0.00 (0-0.5) K/uL Baso # (Auto) 0.00 (0-0.2) K/uL Immature Gran # (Auto) 0.05 H (0.00-0.02) K/uL Sodium 143 (136-145) mmol/L Potassium 5.0 (3.5-5.1) mmol/L Chloride 111 H (98-107) mmol/L Carbon Dioxide 29 (21-32) mmol/L Anion Gap 3.0 (3-11) BUN 77 H (7-18) mg/dl Creatinine 2.59 H (0.6-1.2) mg/dl Est Cr Clr Drug Dosing 10.1 ml/min Est GFR ( Amer) 19.4 Est GFR (Non-Af Amer) 16.7 BUN/Creatinine Ratio 29.8 H (10-20) Glucose 203 H (70-99) mg/dl Calcium 9.5 (8.5-10.1) mg/dl Phosphorus 2.9 (2.5-4.9) mg/dl Troponin I 0.016 (0-0.045) ng/ml Albumin 2.3 L (3.4-5.0) gm/dl Blood Type A Positive Antibody Screen POSITIVE A Antibody Identification Anti-M Antibody ID Comment Crossmatch See Detail Imaging Data Radiologist's Impression: [place], [place] [phone] XRay Report Patient: RUBEN SHAIKH Date: 12/25/19 MR#: [id number]: [address] Acct ID:[id number]: Date: 1940City Zip: [place] [address] Age: 79Location: ED Sex: F Room/Bed: Att Phy:Diagnosis: ABNORMAL LABS Marianela Phy: Dong Baumann MD(VERNELL)Service Date: 12/25/19 Fam Phy:Interpreting Phy: Jean Paul Pagan MD Admit Phy: Ordering Phy: Mario Multani MD cc: ~ XR chest 1V portable CLINICAL HISTORY: Sepsis. COMPARISON STUDY: Chest radiograph December 12, 2019. FINDINGS: There is no pneumothorax or pleural effusion. Emphysema is noted. Cardiomediastinal silhouette is stable. There is no evidence for pulmonary edema or pneumonia. A stent within the left neck is noted. There is evidence for calcific tendinitis of the left rotator cuff. IMPRESSION: 1. No acute findings. No change in appearance of the chest. 2. Emphysema. ACT 112: Negative or not required by law. Electronically signed by: Jean Paul Pagan M.D. 12/25/2019 11:21 AM Dictated: 12/25/19 1119 Transcribed: 12/25/19 1119 ECG Data Attestation: I personally reviewed and interpreted this ECG as follows: Indication: + weakness Rate (beats per minute): 107 Rhythm: + sinus tachycardia ECG Intervals/blocks: + Normal QT-c (419) ECG [place]: + Normal ECG ST segments: no ST depression and no ST elevation Comparison ECG Date: from (05/01/2019) Change: the following changes noted (nonspecific t wave abnormality present) MDM Narrative Patient was seen and evaluated as above in room C9. Review was performed of nursing notes and vital signs. I did review pertinent previous visits and patient history. After obtaining a thorough history and physical examination the above work up was performed. This is an 79-year-old female who presents emergency department after being sent in over abnormal laboratory work. The patient's creatinine is bumped. Her hemoglobin was found to be low. I am concerned the patient has an early sepsis as she has an elevation in her white blood cell count is hypotensive and tachycardic upon arrival. She was given 30 mL's per kilogram of fluid. She was given broad-spectrum antibiotics. I do not feel that the patient has Maher-Jose syndrome she does not have any lesions in her mouth or oral lesions. While in the department, I personally reevaluated the patient several times and each time the patient was found to be resting comfortably. The patient was educated upon management, educated upon todays findings/results, educated upon importance of follow up from today's visit, educated upon symptoms in which to return, had questions answered prior to discharge, verbalized understanding, and was discharged home in good condition. An order was placed for continuous cardiac monitoring. The monitor shows a rate of 83 with Normal Sinus rhythm. The patient was evaluated during the global COVID-19 pandemic, and that diagno sis was suspected/considered upon their initial presentation. Their evaluation, treatment and testing was consistent with current guidelines for patients who present with complaints or symptoms that may be related to COVID-19. Impression & Plan Symptomatic anemia, Traumatic open wound of right lower leg, Acute kidney injury Discharge Plan Visit Data *Final* Discharge Date/Time: 12/25/19 12:26 Chief Complaint: Abnormal Labs/Diagnostic Testing ED Provider: Mario Multani ED Midlevel Provider: Aundrea Lewis Discharge Problem: Symptomatic anemia, Traumatic open wound of right lower leg, Acute kidney injury Patient Disposition: Admitted As Inpatient Discharge Instructions Interventions: ED Discharge Assessment Last Done: 12/25/19 12:26 Discharge Problem: Traumatic open wound of right lower leg Qualifiers: Encounter type: initial encounter Qualified Code(s): S81.801A - Unspecified open wound, right lower leg, initial encounter
[2019-12-25] MEDS ORDERED: SODIUM CHLORIDE 0.9% 250 ML IV PRN (09:59)
--- NOTE | 2019-12-25 10:16 | Emergency Department Note ---
ED Visit Note This patient was seen in concert with Dr. Multani and we discussed and agreed upon the history, physical, assessment and plan. See attending's note for details. Resident Activity Tracking Resident Involvement: Resident Care Provided Care Provided: Adult ED
[2019-12-25 10:40] LABS: Hematocrit (blood only) 24.5 % (37-47); Hemoglobin 8.3 g/dL (12.0-16.0); Immature Granulocytes # (auto) 0.05 K/uL (0.00-0.02); Immature Granulocytes % (auto) 0.4 %; Lymphocytes # (auto) 0.48 K/uL (1.2-3.4); Lymphocytes % (auto) 4.1 %; Mean Corpuscular Hemoglobin 32.5 pg (25-34); Mean Corpuscular Hgb Conc 33.9 g/dL (32-36); Mean Corpuscular Volume 96.1 fL (80-100); Mean Platelet Volume 9.5 fL (7.4-10.4); Monocytes % (auto) 3.5 %; Neutrophils # (auto) 10.64 K/uL (1.4-6.5); Platelet Count 124 K/uL (130-400); RDW Coefficient of Variation 13.9 % (11.5-14.5); RDW Standard Deviation 49.2 fL (36.4-46.3); Red Blood Count 2.55 M/uL (4.2-5.4); White Blood Count 11.57 K/uL (4.8-10.8)
[2019-12-25 10:56] LABS: Albumin Level 2.3 gm/dl (3.4-5.0); BUN Creatinine Ratio 29.8 (10-20); Calcium 9.5 mg/dl (8.5-10.1); Creatinine Clr Calc Pharmacy 10.1 ml/min; Est GFR (African American) 19.4; Est GFR (Non-African American) 16.7
[2019-12-25] MEDS ORDERED: SODIUM CHLORIDE 0.9% 1000ML 1,000 ML IV ONE (10:57)
[2019-12-25] MEDS ORDERED: SODIUM CHLORIDE 0.9% 1000ML 500 ML IV ONE (11:00)
[2019-12-25 11:01] LABS: Phosphorus 2.9 mg/dl (2.5-4.9); Troponin I 0.016 ng/ml (0-0.045)
[2019-12-25] MEDS ORDERED: DAPTOMYCIN CONSULT ACTIVE PRN (11:13)
[2019-12-25] MEDS ORDERED: AZTREONAM 2,000 MG in DEXTROSE 5% 100 ML IV STA (11:13)
[2019-12-25] MEDS ORDERED: DAPTOmycin 225 MG in SYRINGE 0 ML IV ONE (11:13)
--- NOTE | 2019-12-25 11:23 | XRay Report ---
XR chest 1V portable CLINICAL HISTORY: Sepsis. COMPARISON STUDY: Chest radiograph December 12, 2019. FINDINGS: There is no pneumothorax or pleural effusion. Emphysema is noted. Cardiomediastinal silhoue tte is stable. There is no evidence for pulmonary edema or pneumonia. A stent within the left neck is noted. There is evidence for calcific tendinitis of the left rotator cuff. IMPRESSION: 1. No acute findings. No change in appearance of the chest. 2. Emphysema. ACT 112: Negative or not required by law. Electronically signed by: Jean Paul Pagan M.D. 12/25/2019 11:21 AM
--- NOTE | 2019-12-25 12:31 | History & Physical Report ---
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 -Has been following with wound care for RLE wound 2/2 fall on 12/11. Has complet ed 09/10 day course of levofloxacin for wound -Afebrile but with Reiger's. Tachycardic at 106, RR 25. Leukocytosis of 11.57, pro-Antonio of 2.3, CRP of 6. Lactic acid within normal limits -Wound flap dusky blue, does not appear to be healing in setting of PVD and DM II. Consult Ortho for possible wound debridement. RLE x-ray pending. Hold Plavix for now but resume if no procedure indicated -Blood and wound cultures pending. Empiric antibiotic treatment with Dapto and aztreonam. 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 hematoma forming under RLE wound -No reported melena or hematochezia. Initial FOBT negative, will repeat -Recent iron studies indicate need for supplementation. Routine consult for nephro given CKD 4 and possible need for IV iron infusion -Consented, type and crossed and ordered for 1 unit PRBCs in ED -Repeat H&H this evening at 1800. Fall precautions (4) PVD (peripheral vascular disease): History of multiple vascular interventions including carotid endarterectomy, aortofemoral bypass and femoral-popliteal bypass surgeries -Will hold Plavix for now due to thrombocytopenia 127, likelihood of wound debridement. Plan to resume Plavix if no procedure indicated -Also holding statin for now while receiving IV daptomycin (5) Acute worsening of stage 4 chronic kidney disease: Creatinine elevated at 2.59 in setting of worsening anemia, infection. Baseline creatinine mid 1s-2) -Avoid nephrotoxic agents when able -Routine nephrology consult (6) COPD, severe: (7) Nocturnal hypoxemia: No evidence of exacerbation. Lungs sound clear on exam, chest x-ray with emphysema -Continue home duo nebs, Symbicort, Combivent -2L Oxygen at bedtime (8) CAD (coronary artery disease): H/o BMS in 2008 -Continue metoprolol succinate. Holding statin while receiving dapto (9) DM type 2 (diabetes mellitus, type 2): A1c of 6.1 this month -Hold home agents -SSI while in-patient -BSG AC HS DVT Ppx: SCDs for now (LLE only) in setting of worsening anemia, thrombocytopenia Code status: FULL per initial discussion. Uncertain and anxious during discussion-will call family. Need to readdress code status later during admission. PCP: [facility]: Admitted to PCU. PT/OT and discharge planning ordered. Patient seen in collaboration with Dr. Michaud. Please see addendum. 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 Patient is followed [facility] by [facility] at home and had lab work performed on 12/20 showing worsening anemia with hemoglobin of 8.3. Repeat lab work from 12/23 showed hemoglobin of 7.7. Creatinine function also worsened at 2.59 (baseline mid 1s-2). Has wound on right lower extremity from fall downstairs on December 11 that she has been following with wound care for. Was started on Keflex but did not tolerate and was switched to levofloxacin 4 days ago for 7-day course. Plavix was held for 3 days a week ago to help promote healing but patient states that wound is not gotten any smaller. Is experiencing chills today along with some pain of right lower extremity. Has also been feeling lightheaded with visual changes for the past few days. Denies any chest pain, palpitations or shortness of breath worse than baseline. No fever, confusion, headache, abdominal pain, nausea, vomiting, dysuria, diarrhea or constipation. Lives alone at home with home health and ambulates with walker. Takes Plavix due to history of PAD. Also with recent iron studies indicating iron deficiency anemia. Recommended to resume iron supplement p.o. twice daily. Allergies Allergy/AdvReac Type Severity Reaction Status Date / Time codeine Allergy Mild Verified 12/17/19 10:02 amoxicillin Allergy Unknown unknown Verified 12/17/19 10:02 aspirin Allergy Unknown UNKNOWN Verified 12/17/19 10:02 bacitracin Allergy Unknown Rash Verified 12/17/19 10:02 isosorbide Allergy Unknown unknown Verified 12/17/19 10:02 neomycin Allergy Unknown Rash Verified 12/17/19 10:02 polymyxin B Allergy Unknown Rash Verified 12/17/19 10:02 Home Medications Home Medications Medication Instructions Recorded Confirmed Type Combivent Respimat 1 puff INHALATION QID 05/01/19 12/25/19 History Tradjenta 5 mg PO DAILY 05/01/19 12/25/19 History albuterol sulfate [Ventolin HFA] 2 puff INHALATION Q6H PRN 05/01/19 12/25/19 History atorvastatin 80 mg PO DAILY 05/01/19 12/25/19 History budesonide-formoterol [Symbicort] 2 puff INHALATION BID 05/01/19 12/25/19 History clopidogrel 75 mg PO DAILY 05/01/19 12/25/19 History glipizide 5 mg PO DAILY 05/01/19 12/25/19 History ipratropium-albuterol 3 ml INHALATION Q4H PRN 05/01/19 12/25/19 History metoprolol succinate 100 mg PO DAILY 05/01/19 12/25/19 History mirtazapine 7.5 mg PO HS 05/01/19 12/25/19 History pantoprazole 20 mg PO DAILY 05/01/19 12/25/19 History levofloxacin 250 mg PO DAILY 12/25/19 12/25/19 History prednisone 20 mg PO DIRECTED 12/25/19 12/25/19 History Past Med/Surg History Medical History (Updated 12/25/19 @ 13:34 by Radha Costa PA-C) CAD (coronary artery disease) (Chronic) "NSTEMI 01/2009 - BMS to distal left circumflex, cath at that time showed 100% proximal RCA occlusion" CKD (chronic kidney disease), stage IV (Chronic) COPD, severe (Chronic) "oxygen requiring" DM type 2 (diabetes mellitus, type 2) (Chronic) Dyslipidemia (Chronic) Femoral artery aneurysm, right (Chronic) "s/p repair" GERD (gastroesophageal reflux disease) (Chronic) HTN (hypertension) Hypercalcemia Iron deficiency anemia Ischemic cardiomyopathy (Chronic) "echo 04/2015- EF 50-55%, grade I diastolic dysfunction" On 05/02/15 18:17 Adele Mathur wrote "echo 2010 - EF 45-50%, grade I diastolic dysfunction" Nocturnal hypoxemia PVD (peripheral vascular disease) (Chronic) Surgical History H/O aorto-femoral bypass (Chronic) History of hysterectomy (Chronic) Hx of appendectomy (Chronic) Hx of cataract surgery (Chronic) S/P carotid endarterectomy (Chronic) "left in 2001, left carotid stent placed 2002" S/P femoral-popliteal bypass surgery (Chronic) Family History Other Heart disease Denies family history of Diabetes COPD (chronic obstructive pulmonary disease) Social History Smoking Status: Former smoker Hx Alcohol Use: No Hx Substance Use: No Preferred Language: Czech Communication Ability: Effective 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 Physical Exam Physical Exam: General Appearance: vitals as above, NAD, elderly, appears frail, conversing easily Head: normocephalic, atraumatic Eyes: normal inspection, PERRL, conjunctivae normal, anicteric sclerae ENT: external ear and nose normal, oropharynx normal Neck: trachea midline, no thyromegaly, normal visual inspection Respiratory: normal respiratory effort, lungs clear to auscultation but diminished lung sounds, no wheeze, rales, rhonchi Cardiovascular: regular rate, rhythm, no murmur appreciated, normal peripheral pulses Chest: normal inspection of chest Abdomen/GI: normal bowel sounds, soft, nontender, no hepatosplenomegaly Extremities/Musculoskeletal: + RLE with 8 x 7 cm on anterior tibial surface with dusky blue skin flap. Periwound is intact with some edema and erythema. No drainage noted. Extremities motor strength 5/5 Neurologic: PERRL, EOMI, accommodation nl, no face palsy, no dysarthria, CN's II-XI intact bilaterally and moves all extremities Psychiatric: A+Ox3, euthymic affect Skin: See above for RLE wound. Normal color, warm/dry Results & Data Results & Data ([facility]) Vital Signs (Past 12 Hours) Vital Signs Temp Pulse Pulse Resp BP BP Pulse Ox 12/25/19 10:46 106 H 20 150/62 H 100 12/25/19 09:31 37.0 C 104 H 24 92/64 L 98 Laboratory Results Short CBC 12/25/19 Range/Units 10:23 WBC 11.57 H (4.8-10.8) K/uL Hgb 8.3 L (12.0-16.0) g/dL Hct 24.5 L (37-47) % Plt Count 124 L (130-400) K/uL BMP 12/25/19 10:23 Sodium 143 Potassium 5.0 Chloride 111 H Carbon Dioxide 29 BUN 77 H Creatinine 2.59 H Glucose 203 H Calcium 9.5 Cardiac Enzymes 12/25/19 Range/Units 10:23 Troponin I 0.016 (0-0.045) ng/ml Liver Function 12/25/19 Range/Units 10:23 Albumin 2.3 L (3.4-5.0) gm/dl Diagnostic Findings CXR: IMPRESSION: 1. No acute findings. No change in appearance of the chest. 2. Emphysema. Code Status & VTE Plan VTE Prophylaxis Plan VTE Prophylaxis will be ordered: Yes Supervising Physician Co-Signing Physician Notes Patient is an 79-year-old female with history of CKD stage IV, chronic anemia, coronary artery disease, COPD and other medical problems presents for evaluation of abnormal blood work. Outpatient blood work done yesterday showed a hemoglobin of 7.7 and creatinine of 2.59. Patient admits to have fell about 2 weeks ago resulting in right leg wound. She has been on oral antibiotics for the same. She reports right leg pain associated with chills, dizziness with transient visual change for the past few days. Please review HPI for complete details of presentation. She was noted to have mild leukocytosis 11 point 5K hemoglobin 8.3, platelets 120 4K, creatinine 2.5. On exam patient is thin, elderly, frail, no apparent distress, normocephalic, atraumatic, lungs--decreased breath sounds, clear to auscultation, S1-S2, no murmur, no pedal edema, tachycardia, abdomen soft, nontender, normal bowel sounds, alert, awake, oriented, grossly no focal deficits, right leg skin tear, wound with hematoma noted on ashby. Patient is admitted for management of sepsis secondary to right leg wound infection, symptomatic anemia, DEMETRIO on CKD. Patient received 2 L of IV fluids while in ED. Plan to be transfused 1 unit PRBCs. Agree with broad-spectrum antibiotics. Blood and wound cultures. Continue wound care. Consulted orthopedics for possible I&D and debridement. X-ray of the leg showed no acute osseous abnormality. Will hold Plavix for now for possible procedure and resume as soon as possible if no procedure required. Given history of iron deficiency anemia patient would likely benefit from IV Venofer. Start on oral iron supplements. Avoid nephrotoxic agents. Monitor renal function. Consider nephrology for input. Check fecal occult. Monitor for any bleeding issues. Also noted thrombocytopenia. Monitor platelet counts and hemoglobin. Needs PT OT eval for ambulatory dysfunction. Case management consulted for discharge planning. I personally reviewed the record. Patient is interviewed and examined at bedside. Patient's care is coordinated with Radha Costa PA-C. Please refer to the documentation above for details of patient's presentation and for discussion of other issues. (1) Traumatic open wound of right lower leg Encounter type: initial encounter Qualified Code(s): S81.801A - Unspecified open wound, right lower leg, initial encounter
[2019-12-25] MEDS ORDERED: ACETAMINOPHEN 325 MG TAB PO PRN (12:57)
[2019-12-25] MEDS ORDERED: ALBUTEROL HFA 8 GM INHALER INH PRN (12:57)
[2019-12-25] MEDS ORDERED: ONDANSETRON INJ 2 MG/ML 2 ML VIAL IV PRN (12:57)
--- NOTE | 2019-12-25 13:42 | Electrocardiogram Report ---
Test Reason : Blood Pressure : / mmHG Vent. Rate : 107 BPM Atrial Rate : 107 BPM P-R Int : 140 ms QRS Dur : 092 ms QT Int : 314 ms P-R-T Axes : 088 062 074 degrees QTc Int : 419 ms Poor data quality, interpretation may be adversely affected Sinus tachycardia with occasional Premature ventricular complexes Otherwise normal ECG When compared with ECG of 01-MAY-2019 11:59, Nonspecific T wave abnormality no longer evident in Inferior leads Confirmed by Molina Bajwa ([id number]) on 12/25/2019 1:42:20 PM Referred By: REFERRED SELF Confirmed By:Molina Bajwa
--- NOTE | 2019-12-25 13:46 | XRay Report ---
RIGHT TIBIA AND FIBULA 2 VIEWS CLINICAL HISTORY: Right leg wound. FINDINGS: AP and lateral views of the right tibia and fibula are compared to study dated 12/12/2019. Th e skeletal structures are osteopenic. There is no radiographic evidence of right tibial or fibular fr acture. There is a large dorsal calcaneal enthesophyte. The knee and ankle joints appear maintained. There is atherosclerotic calcification of the regional arteries. Mild pretibial soft tissue swelling is noted. IMPRESSION: Pretibial soft tissue swelling with no acute osseous abnormality identified. Electronically signed by: Vikram Lopez M.D. 12/25/2019 1:44 PM
[2019-12-25] MEDS ORDERED: GLUCAGON FOR INJ 1 MG VIAL SQ PRN (13:59)
[2019-12-25] MEDS ORDERED: GLUCOSE 40% GEL 15 GM TUBE PO PRN (13:59)
[2019-12-25] MEDS ORDERED: DEXTROSE 50% 50 ML SYRINGE IV PRN (13:59)
[2019-12-25] MEDS ORDERED: GLUCOSE 10 TABS/TUBE PO PRN (13:59)
[2019-12-25] MEDS ORDERED: AZTREONAM CONSULT ACTIVE PRN (14:13)
[2019-12-25] MEDS ORDERED: FERROUS SULFATE 325 MG/7.4 ML UDP PO SCH (14:15)
[2019-12-25] MEDS: IPRATROPIUM BROMIDE HFA INHALER INH SCH ×2 (15:08→19:11)
[2019-12-25] MEDS: ALBUTEROL HFA 8 GM INHALER INH SCH ×2 (15:09→19:11)
[2019-12-25] MEDS: FERROUS SULFATE 325 MG TAB PO SCH (17:19)
[2019-12-25] MEDS: INSULIN ASPART 100 UNITS/ML 3 ML PEN SC SCH ×2 (17:20→20:27)
--- NOTE | 2019-12-25 17:39 | Orthopedic Consultation ---
Date of Consultation December 25, 2019 Assessment & Plan (1) Traumatic open wound of right lower leg: Currently her latest x-ray of her tibia and fibula show no bony injury or osteomyelitis. I have spoken to Dr. Michaud about this patient. With her previous peripheral vascular disease, we will order a Doppler to ascertain current blood flow into the lower extremity. Possible need for vascular consult. We will also consult wound care who has seen the patient regularly to see if there is any viable option that they may offer. Patient has been on Plavix which has been held. She is currently receiving blood at this time for her anemia. Dependent on Dr. Giron's input, patient may need a deeper debridement of this area. We will continue to follow with you. History of Present Illness Reason for Consultation: Right lower extremity wound Attending Physician: Beto Michaud MD History of Present Illness Patient is an 79-year-old white female with history of having a wound on her right lower extremity after a fall down 5 steps. Patient has a known past medical history of CKD stage IV diabetes mellitus type 2, CAD, status post BMS in 2008, hypertension, COPD with nocturnal hypoxemia, dyslipidemia, peripheral vascular disease with history of femoral artery aneurysm with bypass approximate 6 years ago, GERD,and ischemic cardiomyopathy. The patient states that approximately 3 weeks ago she had fallen down some cinderblock stairs that she has had at home. He developed a wound on her right lower extremity and has been seeing the wound care team here in [place] and has been treated with home health care by [facility] fairly regularly. She was last seen by the wound care team, that I can ascertain, on the ninth of this month with some new pictures of the wound taken on the of this month. At that time the wound appeared to be healing fairly well. Since that time she states that the wound has worsened and gotten somewhat more painful. She had been seen by [facility] home health services and has had multiple laboratory values drawn recently showing a continued decrease in her hemoglobin. She apparently had some chills prior to admission but no obvious fevers. She had worsening pain in her right lower extremity and she was brought to the emergency room.She was admitted for sepsis and a traumatic open wound of the right lower extremity. Also noted symptomatic anemia. We have been asked to see her for her right lower extremity wound. She is currently eating her dinner and states she is feeling much better. No new complaints since her arrival. Allergies Allergy/AdvReac Type Severity Reaction Status Date / Time codeine Allergy Mild Unknown Verified 12/26/19 11:57 amoxicillin Allergy Unknown unknown Verified 12/26/19 11:57 aspirin Allergy Unknown UNKNOWN Verified 12/17/19 10:02 bacitracin Allergy Unknown Rash Verified 12/17/19 10:02 isosorbide Allergy Unknown unknown Verified 12/17/19 10:02 neomycin Allergy Unknown Rash Verified 12/17/19 10:02 polymyxin B Allergy Unknown Rash Verified 12/17/19 10:02 Home Medications Home Medications Medication Instructions Recorded Confirmed Type Combivent Respimat 1 puff INHALATION QID 05/01/19 12/25/19 History Tradjenta 5 mg PO DAILY 05/01/19 12/25/19 History albuterol sulfate [Ventolin HFA] 2 puff INHALATION Q6H PRN 05/01/19 12/25/19 History atorvastatin 80 mg PO DAILY 05/01/19 12/25/19 History budesonide-formoterol [Symbicort] 2 puff INHALATION BID 05/01/19 12/25/19 History clopidogrel 75 mg PO DAILY 05/01/19 12/25/19 History glipizide 5 mg PO DAILY 05/01/19 12/25/19 History ipratropium-albuterol 3 ml INHALATION Q4H PRN 05/01/19 12/25/19 History metoprolol succinate 100 mg PO DAILY 05/01/19 12/25/19 History mirtazapine 7.5 mg PO HS 05/01/19 12/25/19 History pantoprazole 20 mg PO DAILY 05/01/19 12/25/19 History levofloxacin 250 mg PO DAILY 12/25/19 12/25/19 History prednisone 20 mg PO DIRECTED 12/25/19 12/25/19 History Patient History Medical History CAD (coronary artery disease) (Chronic) "NSTEMI 01/2009 - BMS to distal left circumflex, cath at that time showed 100% proximal RCA occlusion" CKD (chronic kidney disease), stage IV (Chronic) COPD, severe (Chronic) "oxygen requiring" DM type 2 (diabetes mellitus, type 2) (Chronic) Dyslipidemia (Chronic) Femoral artery aneurysm, right (Chronic) "s/p repair" GERD (gastroesophageal reflux disease) (Chronic) HTN (hypertension) Hypercalcemia Iron deficiency anemia Ischemic cardiomyopathy (Chronic) "echo 04/2015- EF 50-55%, grade I diastolic dysfunction" On 05/02/15 18:17 Adele Mathur wrote "echo 2010 - EF 45-50%, grade I diastolic dysfunction" Nocturnal hypoxemia PVD (peripheral vascular disease) (Chronic) Surgical History H/O aorto-femoral bypass (Chronic) History of hysterectomy (Chronic) Hx of appendectomy (Chronic) Hx of cataract surgery (Chronic) S/P carotid endarterectomy (Chronic) "left in 2001, left carotid stent placed 2002" S/P femoral-popliteal bypass surgery (Chronic) Family History Other Heart disease Denies family history of Diabetes COPD (chronic obstructive pulmonary disease) Social History Smoking Status: Former smoker Hx Alcohol Use: No Hx Substance Use: No Preferred Language: Tajik Communication Ability: Effective Television Inspector Required: No Beliefs That Will Affect Care: None marital status: / Current Living Situation: Alone Other Information That Helps Us Care for You: No Feels Safe at Home: Yes Safety Concerns: Feels Safe At This Time Review of Systems Review of Systems: As per today's history and physical. No fevers of note but she did have some chills. Denied shortness of breath, increased cough or sputum production, chest pain, chest pressure, irregular heartbeat, abdominal pain, unusual nausea, vomiting, diarrhea. Denies history of any urinary symptoms including hematuria, pyuria, dysuria. She was having some lightheadedness over the last few days. Denies vertigo Physical Exam Physical Exam: Patient is an 79-year-old white female who is pleasant and cooperative, no acute distress, alert and oriented to person and place. She states that her leg is feeling much better since she has gotten situated into her room. Nursing staff has covered it with an OPTi foam dressing which she states has helped greatly. Focusing on the right lower extremity, with her p ermission, the optifoam was removed revealing a large V-shaped wound of the lower extremity below the knee just above the ankle. She has some erythema noted around the wound itself. Multiple bruises noted on the right lower extremity from previous fall. In reviewing her previous photos, the skin flaps looked better at that time and somewhat viable. The patient states that they tried to suture the laceration however her skin is so delicate that it continued to tear. The skin flap itself has retracted and is now blackened. There is no foul odor and there is no purulent material that I can see. The flap is retracted back approximately 1-1/2 cm at the distal and and medial aspect revealing subcutaneous fat. The lateral aspect of the wound edge has retracted approximately 8 mm. She has some erythema of the lower extremity around the wound itself. She has a fair amount of dry skin that is peeling off as well. In removing her sock, she has tenderness throughout her right foot of which she states she has had since she is fallen. I cannot appreciate a palpable pulse of the dorsalis pedis at this time. Capillary refill is somewhat sluggish. She does have some feeling in her foot at this time. Results & Data ([facility]) Vital Signs (Past 12 Hours) Vital Signs Temp Pulse Pulse Resp BP BP Pulse Ox 12/25/19 16:46 36.7 C 102 H 26 H 156/73 H 100 12/25/19 15:46 36.7 C 97 H 137/61 99 12/25/19 15:16 36.7 C 97 H 33 H 146/65 H 99 12/25/19 15:09 101 H 20 99 12/25/19 15:01 36.7 C 98 H 23 147/65 H 100 12/25/19 14:45 36.8 C 100 H 18 125/68 100 12/25/19 10:46 106 H 20 150/62 H 100 12/25/19 09:31 37.0 C 104 H 24 92/64 L 98 (1) Traumatic open wound of right lower leg Encounter type: initial encounter Qualified Code(s): S81.801A - Unspecified open wound, right lower leg, initial encounter
[2019-12-25 18:14] LABS: Hematocrit (blood only) 29.4 % (37-47); Hemoglobin 9.8 g/dL (12.0-16.0)
--- NOTE | 2019-12-25 19:26 | XRay Report ---
XR foot RT 2V CLINICAL HISTORY: Right heel pain. COMPARISON STUDY: None. FINDINGS: The bones are osteopenic. No acute fracture or dislocation. Small soft tissue and bony buni on at the medial head of the first metatarsal. The Lisfranc joint is intact. Suspect a focal ulcerati on at the posterior heel. No underlying bony destruction to suggest osteomyelitis. Plantar and etcher aircraft ior calcaneal spurs are noted. IMPRESSION: 1. No acute fracture or dislocation within the right foot. 2. Focal skin ulceration at the posterior heel. No underlying bony destruction to suggest osteomyelit is. ACT 112: Negative or not required by law. Electronically signed by: Chaitanya Ruvalcaba M.D. 12/25/2019 7:25 PM
--- NOTE | 2019-12-25 19:32 | Ultrasound Report ---
US arterial duplex LE RT CLINICAL HISTORY: Wound healing capabilities. COMPARISON STUDY: None. FINDINGS: Monophasic waveforms seen throughout the right lower extremity arterial system. The [place] superficial femoral artery is occluded. There is a right superficial femoral graft which is patent an d demonstrates normal velocities. Focal elevated peak systolic velocity within the [place] distal righ t superficial femoral artery distal to the graft measuring 197 cm/s. This is consistent with a focal area of stenosis. Otherwise, the remaining popliteal, posterior tibial, anterior tibial, peroneal, do rsalis pedis arteries show no significant stenosis or occlusion. Of note, the distal posterior tibial artery is not well visualized. The [place] superficial femoral artery is patent. IMPRESSION: 1. Occluded [place] superficial femoral artery. However, there is a patent femoral graft. 2. Focal area of stenosis within the [place] distal right superficial femoral artery distal to the gra ft. ACT 112: Negative or not required by law. Electronically signed by: Chaitanya Ruvalcaba M.D. 12/25/2019 7:30 PM
[2019-12-25] MEDS: AZTREONAM 1,000 MG in DEXTROSE 5% 100 ML IV SCH (19:55)
[2019-12-25] MEDS: MIRTAZAPINE TAB 15 MG TAB PO SCH (19:58)
[2019-12-26] MEDS: AZTREONAM 1,000 MG in DEXTROSE 5% 100 ML IV SCH ×3 (03:10→20:02)
[2019-12-26 06:09] LABS: Hematocrit (blood only) 30.1 % (37-47); Hemoglobin 10.6 g/dL (12.0-16.0); Mean Corpuscular Hemoglobin 34.1 pg (25-34); Mean Corpuscular Hgb Conc 35.2 g/dL (32-36); Mean Corpuscular Volume 96.8 fL (80-100); Mean Platelet Volume 10.1 fL (7.4-10.4); Platelet Count 120 K/uL (130-400); RDW Coefficient of Variation 14.9 % (11.5-14.5); RDW Standard Deviation 53.1 fL (36.4-46.3); Red Blood Count 3.11 M/uL (4.2-5.4); White Blood Count 10.25 K/uL (4.8-10.8)
[2019-12-26 06:44] LABS: BUN Creatinine Ratio 31.2 (10-20); Calcium 8.5 mg/dl (8.5-10.1); Creatinine Clr Calc Pharmacy 11.6 ml/min; Est GFR (African American) 22.8; Est GFR (Non-African American) 19.7; Magnesium 1.8 mg/dl (1.8-2.4); Potassium 4.7 mmol/L (3.5-5.1)
--- NOTE | 2019-12-26 07:02 | Hospitalist Progress Note ---
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 -Has been following with wound care for RLE wound 2/2 fall on 12/11. Has comple wilmer / day course of levofloxacin for wound -Afebrile but with Rigors. Tachycardic at 106, RR 25. Leukocytosis of 11.57, pro-Antonio of 2.3, CRP of 6. Lactic acid within normal limits -Wound flap dusky blue, does not appear to be healing in setting of PVD and DM II. Ortho on case, Doppler ordered, May need Vascular. RLE x-ray noted. Hold Plavix for now but resume if no procedure indicated -Blood and wound cultures pending. Empiric antibiotic treatment with Dapto and aztreonam. 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 hematoma forming under RLE wound -No reported melena or hematochezia. Initial FOBT negative, will repeat -Recent iron studies indicate need for supplementation. Routine consult for nephro given Acute on CKD 4 and possible need for IV iron infusion -1 unit PRBCs given in ED (4) PVD (peripheral vascular disease): History of multiple vascular interventions including carotid endarterectomy, aortofemoral bypass and femoral-popliteal bypass surgeries -Will hold Plavix for now due to thrombocytopenia 127, likelihood of wound debridement. Plan to resume Plavix if no procedure indicated -Also holding statin for now while receiving IV daptomycin (5) Acute worsening of stage 4 chronic kidney disease: DEMETRIO on CKD stage 4 in setting of sepsis/infection Creatinine elevated at 2.59 in setting of worsening anemia, infection. Baseline creatinine mid 1s-2) -Avoid nephrotoxic agents when able -Routine nephrology consult (6) COPD, severe: (7) Nocturnal hypoxemia: No evidence of exacerbation. Lungs sound clear on exam, chest x-ray with emphysema -Continue home duo nebs, Symbicort, Combivent -2L Oxygen at bedtime (8) CAD (coronary artery disease): h/o BMS in 2008 -Continue metoprolol succinate. Holding statin while receiving dapto (9) DM type 2 (diabetes mellitus, type 2): A1c of 6.1 this month -Hold home agents -SSI while in-patient -BSG AC HS DVT Ppx: SCDs for now (LLE only) in setting of worsening anemia, thrombocytopenia Code status: FULL PCP: [facility] Dispo: In PCU. PT/OT and discharge planning ordered. Labs Checked ROS-No Headache, No Visual Changes, No Nausea, No Vomiting, No Fever, No Chills, No Neck Pain or Stiffness, No Chest Pain, No Palpitations, No SOB, No OCAMPO, No Cough, No Sputum, No Wheezing, No Abdominal Pain, No Diarrhea, No Hematemesis, No Hemoptysis, No Unexpected Weight Loss, No Flank pain, No Melena, No Hematochezia, No Frequency, No Urgency, No Burning, No Hematuria, No Rashes, No Diaphoresis. Appetite is Normal, c/o Vertigo s/s last PM Physical Exam Gen-AAO x 3, NAD, Afebrile Head-NCAT, EOMI, PERRLA, Anicteric Sclera, No Posterior Pharyngeal Erythema Neck-Supple, No JVD, No Thyromegaly, No Masses, No LAD, No Bruits Lungs-Clear to Auscultation Bilaterally, No Rales, No Rhonchi, No Wheezing, No Crepitus Chest-No S4, +S1, +S2, No S3, No Murmurs, No Rubs, No Gallops, No Ectopy Abdomen-Soft, Bowel Sounds Present, Non Tender, Non Distended, No Hepatomegaly, No Splenomegaly, No Palpable Masses, No Rebound, No Rigidity, No Guarding Musculoskeletal-Full Range of Motion Bilaterally, No CVAT Extremities-No Cyanosis, No Clubbing, No Edema Nuero-Cranial Nerves II-XII grossly intact, Motor WNL, DTRs WNL, Strength WNL, Non Focal Psych-Normal Mood Admission and Anticipated Discharge Date Admission Date: December 25, 2019 Results & Data Results & Data ([facility]) Vital Signs (Past 12 Hours) Vital Signs Temp Pulse Pulse Resp BP Pulse Ox 12/26/19 03:19 37.0 C 83 24 146/57 H 96 12/26/19 00:44 89 12/25/19 23:44 36.6 C 97 H 21 124/47 L 98 12/25/19 19:53 36.8 C 88 22 151/60 H 97 (1) Traumatic open wound of right lower leg Encounter type: initial encounter Qualified Code(s): S81.801A - Unspecified open wound, right lower leg, initial encounter
[2019-12-26] MEDS: IPRATROPIUM BROMIDE HFA INHALER INH SCH ×4 (07:03→19:48)
[2019-12-26] MEDS: ALBUTEROL HFA 8 GM INHALER INH SCH ×4 (07:03→19:49)
[2019-12-26] MEDS: INSULIN ASPART 100 UNITS/ML 3 ML PEN SC SCH ×4 (07:43→20:04)
[2019-12-26] MEDS: METOPROLOL SUCC 50MG EXT REL TAB PO SCH (07:43)
[2019-12-26] MEDS: PANTOprazole 40 MG TAB PO SCH (07:43)
[2019-12-26] MEDS: FERROUS SULFATE 325 MG TAB PO SCH (07:43)
[2019-12-26] MEDS: FLUTICASONE/VILANTEROL 100/25MCG 14 PUFFS/INHALER INH SCH (07:44)
--- NOTE | 2019-12-26 09:29 | Nephrology Consultation ---
Date of Consultation December 26, 2019 Assessment & Plan (1) Acute worsening of stage 4 chronic kidney disease: Patient with acute kidney injury on CKD. She has CKD stage IV at baseline with baseline creatinine of 2. Admission creatinine was 2.59 which is higher than her baseline. This is likely hemodynamically mediated in setting of anemia. Renal function is improving with correction of anemia. Electrolytes are stable and no indication for dialysis. -Monitor with daily BMP -Avoid nephrotoxins such as NSAIDs and contrast. (2) Symptomatic anemia: Patient with anemia of renal disease and possibly iron deficiency anemia. Hemoglobin is better today at 10.6. We will give her Procrit 10,000 units subcu today. Will check iron levels next week or as an outpatient. (3) HTN (hypertension): Blood pressure is controlled on current regimen. No changes today. History of Present Illness Reason for Consultation: Acute kidney injury on CKD, anemia Requesting Physician: Catracho Mensah DO Attending Physician: Catracho Mensah DO History of Present Illness This is 79-year-old female with PMH of CKD IV baseline creatinine of 2, DM II, CAD (s/p BMS in 2008), HTN, COPD with nocturnal hypoxemia on 2L at bedtime and peripheral vascular disease who was admitted on 12/25/2019 with symptomatic anemia. Hemoglobin was 8.1. She received a unit of blood and hemoglobin is 10.6 this morning. Admission creatinine was 2.59 and slightly better at 2.2 today. Patient lives alone in [place]. She reports for about 2 weeks ago and injured her right leg. She has a chronic wound on her right leg. Her brother and Neighbors help to bring food. She says she only cooks when she feels like. She has lost weight and complains of skin peeling. She denies shortness of breath or leg swelling. No urinary symptoms. No NSAID use. Allergies Allergy/AdvReac Type Severity Reaction Status Date / Time codeine Allergy Mild Verified 12/17/19 10:02 amoxicillin Allergy Unknown unknown Verified 12/17/19 10:02 aspirin Allergy Unknown UNKNOWN Verified 12/17/19 10:02 bacitracin Allergy Unknown Rash Verified 12/17/19 10:02 isosorbide Allergy Unknown unknown Verified 12/17/19 10:02 neomycin Allergy Unknown Rash Verified 12/17/19 10:02 polymyxin B Allergy Unknown Rash Verified 07/13/20 10:02 Home Medications Home Medications Medication Instructions Recorded Confirmed Type Combivent Respimat 1 puff INHALATION QID 05/01/19 12/25/19 History Tradjenta 5 mg PO DAILY 05/01/19 12/25/19 History albuterol sulfate [Ventolin HFA] 2 puff INHALATION Q6H PRN 05/01/19 12/25/19 History atorvastatin 80 mg PO DAILY 05/01/19 12/25/19 History budesonide-formoterol [Symbicort] 2 puff INHALATION BID 05/01/19 12/25/19 History clopidogrel 75 mg PO DAILY 05/01/19 12/25/19 History glipizide 5 mg PO DAILY 05/01/19 12/25/19 History ipratropium-albuterol 3 ml INHALATION Q4H PRN 05/01/19 12/25/19 History metoprolol succinate 100 mg PO DAILY 05/01/19 12/25/19 History mirtazapine 7.5 mg PO HS 05/01/19 12/25/19 History pantoprazole 20 mg PO DAILY 05/01/19 12/25/19 History levofloxacin 250 mg PO DAILY 12/25/19 12/25/19 History prednisone 20 mg PO DIRECTED 12/25/19 12/25/19 History Patient History Medical History CAD (coronary artery disease) (Chronic) "NSTEMI 01/2009 - BMS to distal left circumflex, cath at that time showed 100% proximal RCA occlusion" CKD (chronic kidney disease), stage IV (Chronic) COPD, severe (Chronic) "oxygen requiring" DM type 2 (diabetes mellitus, type 2) (Chronic) Dyslipidemia (Chronic) Femoral artery aneurysm, right (Chronic) "s/p repair" GERD (gastroesophageal reflux disease) (Chronic) HTN (hypertension) Hypercalcemia Iron deficiency anemia Ischemic cardiomyopathy (Chronic) "echo 04/2015- EF 50-55%, grade I diastolic dysfunction" On 05/02/15 18:17 Adele Mathur wrote "echo 2010 - EF 45-50%, grade I diastolic dysfunction" Nocturnal hypoxemia PVD (peripheral vascular disease) (Chronic) Surgical History H/O aorto-femoral bypass (Chronic) History of hysterectomy (Chronic) Hx of appendectomy (Chronic) Hx of cataract surgery (Chronic) S/P carotid endarterectomy (Chronic) "left in 2001, left carotid stent placed 2002" S/P femoral-popliteal bypass surgery (Chronic) Family History Other Heart disease Denies family history of Diabetes COPD (chronic obstructive pulmonary disease) Social History Smoking Status: Former smoker Hx Alcohol Use: No Hx Substance Use: No Preferred Language: Lao Communication Ability: Effective Acting Manager Required: No Beliefs That Will Affect Care: None marital status: / Current Living Situation: Alone Other Information That Helps Us Care for You: No Feels Safe at Home: Yes Safety Concerns: Feels Safe At This Time Review of Systems Review of Systems: All systems reviewed & are unremarkable except as noted in HPI & below Physical Exam Physical Exam: General exam: Appears comfortable, no acute distress HEENT: Pupils are equal and reactive to light Neck: No JVD, neck is supple trachea is midline Respiratory system: Clear breath sounds bilaterally. Gastrointestinal: Abdomen is soft, non distended, non tender, bowel sounds are present CVS: Regular rate and rhythm. No murmurs, rubs or gallops Musculoskeletal: No joint or muscle tenderness Extremities: Non tender, no edema, right leg ulcers Neuro: Oriented, no tremors, no focal neurological deficits Skin: Skin is red in some areas Results & Data Vital Signs (Past 12 Hours) Vital Signs Temp Pulse Pulse Resp BP Pulse Ox 12/26/19 07:59 37.0 C 87 23 134/64 97 12/26/19 07:13 95 H 16 97 12/26/19 03:19 37.0 C 83 24 146/57 H 96 12/26/19 00:44 89 12/25/19 23:44 36.6 C 97 H 21 124/47 L 98 Laboratory Results 12/26/19 05:48 12/25/19 12/25/19 12/26/19 10:23 10:23 05:48 WBC 11.57 H 10.25 RBC 2.55 L 3.11 L MCV 96.1 96.8 MCH 32.5 34.1 H MCHC 33.9 35.2 RDW Std Deviation 49.2 H 53.1 H RDW Coeff of Leslie 13.9 14.9 H Plt Count 124 L 120 L MPV 9.5 10.1 Phosphorus 2.9 Albumin 2.3 L
[2019-12-26] MEDS ORDERED: EPOETIN ALFA 10,000 UNITS/ML VIAL SQ ONE (10:00)
--- NOTE | 2019-12-26 13:10 | Orthopedic Progress Note ---
Date of Service December 26, 2019 Assessment & Plan (1) Traumatic open wound of right lower leg: Case discussed with Dr. Giron today. Planning for moistening of the wound with a damp aquacel covered with a Tegaderm. Plans will be for wound care to possibly do a debridement tomorrow at the bedside. If this is unsuccessful, patient may need further debridement in the operating room. We will continue to follow. Duplex scan reviewed by Kristin Jacobo PA-C from the Vascular team. No need for vascular involvement at this time. Admission and Anticipated Discharge Date Admission Date: December 25, 2019 Subjective Patient currently resting in bed. Awake and alert. She has no complaints at this point in time. She states that she is feeling much better since being admitted. She concurs that Dr. Giron was in today and discussed debridement of her wound tomorrow. No new complaints. Physical Exam Physical Exam: Dressings and place and left on. No new changes. Results & Data ([facility]) Vital Signs (Past 12 Hours) Vital Signs Temp Pulse Resp BP Pulse Ox 12/26/19 11:39 37.1 C 80 20 128/64 98 12/26/19 11:14 88 16 99 12/26/19 07:59 37.0 C 87 23 134/64 97 12/26/19 07:13 95 H 16 97 12/26/19 03:19 37.0 C 83 24 146/57 H 96 Diagnostic Findings Patient: RUBEN SHAIKH EAdmit Date: 12/25/19 MR#: [id number]: [address] Acct ID:[id number]: Date: 1940[facility] Zip: [place] [address] Age: 79Location: 2E Sex: F Room/Bed: [facility] Att Phy: Beto Michaud, MDDiagnosis: SYMPTOMATIC ANEMIA,?GI BLEED,SIRS CRITERIA Marianela Phy: Dong Baumann MD(VERNELL)Service Date: 12/25/19 Fam Phy:Interpreting Phy: Chaitanya Ruvalcaba MD Admit Phy: Beto Michaud MD Ordering Phy: Buddy Diez PA-C cc: ~ US arterial duplex LE RT CLINICAL HISTORY: Wound healing capabilities. COMPARISON STUDY: None. FINDINGS: Monophasic waveforms seen throughout the right lower extremity arterial system. The lower [place] superficial femoral artery is occluded. There is a right superficial femoral graft which is patent and demonstrates normal velocities. Focal elevated peak systolic velocity within the lower [place] distal right superficial femoral artery distal to the graft measuring 197 cm/s. This is consistent with a focal area of stenosis. Otherwise, the remaining popliteal, posterior tibial, anterior tibial, peroneal, dorsalis pedis arteries show no significant stenosis or occlusion. Of note, the distal posterior tibial artery is not well visualized. The lower [place] superficial femoral artery is patent. IMPRESSION: 1. Occluded lower [place] superficial femoral artery. However, there is a patent femoral graft. 2. Focal area of stenosis within the lower [place] distal right superficial femoral artery distal to the graft. (1) Traumatic open wound of right lower leg Encounter type: initial encounter Qualified Code(s): S81.801A - Unspecified open wound, right lower leg, initial encounter
--- NOTE | 2019-12-26 14:36 | Wound Consultation ---
Date of Consultation December 26, 2019 Assessment & Plan (1) Traumatic open wound of right lower le-year-old female traumatic wound of her right lower extremity. No debridement was attempted due to pain. Wound will be dressed with moist Aquacel and a Tegaderm to soften eschar. Will attempt to debride at bedside tomorrow. Please continue to hold Plavix. Would recommend vascular evaluation as there is some stenosis distal to the graft. If I am unable to debride her at bedside due to pain patient would benefit from debridement in the OR by orthopedics. Would recommend placing wound VAC after debridement. I will continue to follow along with this patient. Thank you for limited to spent in the care. Please not hesitate to call with any questions. History of Present Illness Reason for Consultation: right leg wound Attending Physician: Catracho Mensah DO History of Present Illness This is an 79-year-old female with a past medical history of CKD stage IV, type 2 diabetes, CAD status post bare-metal stent in 2008, hypertension, COPD with nocturnal hypoxemia on 2 L at bedtime who was admitted with sepsis and worsening anemia. Patient has been followed at wound clinic for traumatic wound of the right lower extremity. Patient was afebrile but did have Reiger's. She is currently being treated for sepsis. Wound culture is pending. Allergies Allergy/AdvReac Type Severity Reaction Status Date / Time codeine Allergy Mild Unknown Verified 12/26/19 11:57 amoxicillin Allergy Unknown unknown Verified 12/26/19 11:57 aspirin Allergy Unknown UNKNOWN Verified 12/17/19 10:02 bacitracin Allergy Unknown Rash Verified 12/17/19 10:02 isosorbide Allergy Unknown unknown Verified 12/17/19 10:02 neomycin Allergy Unknown Rash Verified 12/17/19 10:02 polymyxin B Allergy Unknown Rash Verified 12/17/19 10:02 Home Medications Home Medications Medication Instructions Recorded Confirmed Type Combivent Respimat 1 puff INHALATION QID 05/01/19 12/25/19 History Tradjenta 5 mg PO DAILY 05/01/19 12/25/19 History albuterol sulfate [Ventolin HFA] 2 puff INHALATION Q6H PRN 05/01/19 12/25/19 History atorvastatin 80 mg PO DAILY 05/01/19 12/25/19 History budesonide-formoterol [Symbicort] 2 puff INHALATION BID 05/01/19 12/25/19 History clopidogrel 75 mg PO DAILY 05/01/19 12/25/19 History glipizide 5 mg PO DAILY 05/01/19 12/25/19 History ipratropium-albuterol 3 ml INHALATION Q4H PRN 05/01/19 12/25/19 History metoprolol succinate 100 mg PO DAILY 05/01/19 12/25/19 History mirtazapine 7.5 mg PO HS 05/01/19 12/25/19 History pantoprazole 20 mg PO DAILY 05/01/19 12/25/19 History levofloxacin 250 mg PO DAILY 12/25/19 12/25/19 History prednisone 20 mg PO DIRECTED 12/25/19 12/25/19 History Patient History Medical History CAD (coronary artery disease) (Chronic) "NSTEMI 01/2009 - BMS to distal left circumflex, cath at that time showed 100% proximal RCA occlusion" CKD (chronic kidney disease), stage IV (Chronic) COPD, severe (Chronic) "oxygen requiring" DM type 2 (diabetes mellitus, type 2) (Chronic) Dyslipidemia (Chronic) Femoral artery aneurysm, right (Chronic) "s/p repair" GERD (gastroesophageal reflux disease) (Chronic) HTN (hypertension) Hypercalcemia Iron deficiency anemia Ischemic cardiomyopathy (Chronic) "echo 04/2015- EF 50-55%, grade I diastolic dysfunction" On 05/02/15 18:17 Adele Mathur wrote "echo 2010 - EF 45-50%, grade I diastolic dysfunction" Nocturnal hypoxemia PVD (peripheral vascular disease) (Chronic) Surgical History H/O aorto-femoral bypass (Chronic) History of hysterectomy (Chronic) Hx of appendectomy (Chronic) Hx of cataract surgery (Chronic) S/P carotid endarterectomy (Chronic) "left in 2001, left carotid stent placed 2002" S/P femoral-popliteal bypass surgery (Chronic) Family History Other Heart disease Denies family history of Diabetes COPD (chronic obstructive pulmonary disease) Social History Smoking Status: Former smoker Hx Alcohol Use: No Hx Substance Use: No Preferred Language: Swedish Communication Ability: Effective Insulation Installer Required: No Beliefs That Will Affect Care: None marital status: / Current Living Situation: Alone Other Information That Helps Us Care for You: No Feels Safe at Home: Yes Safety Concerns: Feels Safe At This Time Review of Systems Review of Systems: All systems reviewed & are unremarkable except as noted in HPI & below Physical Exam Constitutional: + ill appearing Eyes: PERRL, conjunctivae normal, anicteric sclerae ENMT: external ear and nose normal, oropharynx normal Ears: no hearing impairment Skin: Wound measuring as recorded in nursing documentation. Wound is covered with dark eschar her that is firm. Patient is painful to the touch. Neurologic: awake; not confused Psychiatric: A+Ox3, euthymic affect Results & Data Vital Signs (Past 12 Hours) Vital Signs Temp Pulse Resp BP Pulse Ox 12/26/19 11:39 37.1 C 80 20 128/64 98 12/26/19 11:14 88 16 99 12/26/19 07:59 37.0 C 87 23 134/64 97 12/26/19 07:13 95 H 16 97 12/26/19 03:19 37.0 C 83 24 146/57 H 96 PG Care Time/CCT Total # of Minutes Spent Total Time Spent with Patient: Total time spent is greater than 50% in coordination of care (as documented) at patient's floor/unit and/or counseling patient: Coding Level of Care Code 38290 Inpt Consult Level 3 Diagnoses Traumatic open wound of right lower leg S81.801A Encounter type: initial encounter (1) Traumatic open wound of right lower leg Encounter type: initial encounter Qualified Code(s): S81.801A - Unspecified open wound, right lower leg, initial encounter
[2019-12-26 15:19] LABS: Appearance Urine Clear (Clear); Bacteria Urine Automated Negative (Negative); Bilirubin Urine Negative (Negative); Blood Urine Negative (Negative); Color Urine Yellow; Epithelial Cell Urine Auto >30 /lpf (0-5); Glucose Urine UA Negative (Negative); Ketones Urine Negative (Negative); Leukocyte Esterase Urine 1+ (Negative); Nitrite Urine Negative (Negative); Protein Urine 2+ (Negative); RBC Urine Automated 0-4 /hpf (0-4); Specific Gravity Urine 1.019 (1.000-1.030); Urobilinogen Urine Negative (Negative)
[2019-12-26] MEDS: MIRTAZAPINE TAB 15 MG TAB PO SCH (20:02)
[2019-12-27] MEDS: AZTREONAM 1,000 MG in DEXTROSE 5% 100 ML IV SCH ×3 (03:39→20:46)
[2019-12-27 06:01] LABS: Eosinophils # (auto) 0.31 K/uL (0-0.5); Eosinophils % (auto) 3.6 %; Hematocrit (blood only) 30.2 % (37-47); Hemoglobin 10.1 g/dL (12.0-16.0); Immature Granulocytes # (auto) 0.05 K/uL (0.00-0.02); Immature Granulocytes % (auto) 0.6 %; Lymphocytes # (auto) 0.98 K/uL (1.2-3.4); Lymphocytes % (auto) 11.4 %; Mean Corpuscular Hemoglobin 32.6 pg (25-34); Mean Corpuscular Hgb Conc 33.4 g/dL (32-36); Mean Corpuscular Volume 97.4 fL (80-100); Mean Platelet Volume 9.9 fL (7.4-10.4); Monocytes # (auto) 0.35 K/uL (0.11-0.59); Monocytes % (auto) 4.1 %; Neutrophils # (auto) 6.91 K/uL (1.4-6.5); Neutrophils % (auto) 80.3 %; Platelet Count 109 K/uL (130-400); RDW Coefficient of Variation 14.8 % (11.5-14.5); RDW Standard Deviation 53.2 fL (36.4-46.3)
[2019-12-27 06:39] LABS: Albumin Level 1.8 gm/dl (3.4-5.0); BUN Creatinine Ratio 35.5 (10-20); Calcium 8.3 mg/dl (8.5-10.1); Creatinine Clr Calc Pharmacy 14.3 ml/min; Est GFR (Non-African American) 24.1; Magnesium 1.8 mg/dl (1.8-2.4); Potassium 5.1 mmol/L (3.5-5.1)
[2019-12-27 06:41] LABS: Albumin Globulin Ratio 0.7 (0.9-2); Bilirubin,Total 0.3 mg/dl (0.2-1); Globulin 2.4 gm/dl (2.5-4.0); Total Protein 4.2 gm/dl (6.4-8.2)
[2019-12-27] MEDS: IPRATROPIUM BROMIDE HFA INHALER INH SCH ×4 (07:19→19:57)
[2019-12-27] MEDS: ALBUTEROL HFA 8 GM INHALER INH SCH ×4 (07:19→19:57)
[2019-12-27] MEDS: INSULIN ASPART 100 UNITS/ML 3 ML PEN SC SCH ×4 (07:55→20:42)
[2019-12-27] MEDS: FERROUS SULFATE 325 MG TAB PO SCH (07:56)
[2019-12-27] MEDS: METOPROLOL SUCC 50MG EXT REL TAB PO SCH (07:56)
[2019-12-27] MEDS: FLUTICASONE/VILANTEROL 100/25MCG 14 PUFFS/INHALER INH SCH (07:56)
[2019-12-27] MEDS: PANTOprazole 40 MG TAB PO SCH (07:57)
--- NOTE | 2019-12-27 10:10 | Nephrology Progress Note ---
Date of Service December 27, 2019 Assessment & Plan (1) Acute worsening of stage 4 chronic kidney disease: Patient with acute kidney injury on CKD. She has CKD stage IV at baseline with baseline creatinine of 2. Admission creatinine was 2.59 which is higher than her baseline. This is likely hemodynamically mediated in setting of anemia. Renal function is improving with correction of anemia. Creatinine slightly better today at 1.9. Electrolytes are stable and no indication for dialysis. -Monitor with daily BMP -Avoid nephrotoxins such as NSAIDs and contrast. (2) Symptomatic anemia: Patient with anemia of renal disease and possibly iron deficiency anemia. Hemoglobin is stable at 10.1 today. We will give her Procrit 10,000 units subcu weekly, first dose was on 12/26/2019. Will check iron levels next week or as an outpatient. (3) HTN (hypertension): Blood pressure is controlled on current regimen. No changes today. Admission and Anticipated Discharge Date Admission Date: December 25, 2019 Subjective Patient feels better today. She is reportedly eating all her meals. No shortness of breath. No vomiting or diarrhea. Creatinine is slightly better today at 1.9. Hemoglobin fairly stable at 10.1 Review of Systems Review of Systems: All systems reviewed & are unremarkable except as noted in HPI & below Physical Exam Physical Exam: General exam: Appears comfortable, no acute distress HEENT: Pupils are equal and reactive to light Neck: No JVD, neck is supple trachea is midline Respiratory system: Clear breath sounds bilaterally. Gastrointestinal: Abdomen is soft, non distended, non tender, bowel sounds are present CVS: Regular rate and rhythm. No murmurs, rubs or gallops Musculoskeletal: No joint or muscle tenderness Extremities: Non tender, no edema, peripheral pulses are present. She has a wound on the right leg Neuro: Oriented, no tremors, no focal neurological deficits Skin: Skin peeling in certain areas Results & Data ([facility]) Vital Signs (Past 12 Hours) Vital Signs Temp Pulse Pulse Resp BP Pulse Ox 12/27/19 08:43 37.1 C 75 18 126/46 L 97 12/27/19 07:44 36.6 C 76 18 128/73 98 12/27/19 07:20 71 18 99 12/27/19 03:49 36.7 C 80 19 133/56 L 96 12/27/19 01:34 76 12/27/19 00:00 36.4 C L 77 18 131/50 L 99 Laboratory Results 12/27/19 05:30 12/27/19 12/27/19 05:30 05:30 WBC 8.60 RBC 3.10 L MCV 97.4 MCH 32.6 MCHC 33.4 RDW Std Deviation 53.2 H RDW Coeff of Leslie 14.8 H Plt Count 109 L MPV 9.9 Albumin 1.8 L
[2019-12-27] MEDS ORDERED: TRAMADOL HCL 50 MG TABLET PO PRN (11:57)
[2019-12-27] MEDS ORDERED: DAPTOmycin 225 MG in SYRINGE 0 ML IV SCH (12:00)
--- NOTE | 2019-12-27 14:21 | Orthopedic Progress Note ---
Date of Service December 27, 2019 Assessment & Plan (1) Traumatic open wound of right lower leg: I have discussed the case with Dr. Giron. Plans will be to place Aquacel over the wound with also a regular 4 x 4 dressing. We will reassess the wound tomorrow with Dr. Finch. There is the possible need for a deeper debridement vs wound vac and we will make that decision at that time. Admission and Anticipated Discharge Date Admission Date: December 25, 2019 Subjective Patient seen today with Dr. Giron present. He has just finished up doing a debridement of her right lower extremity wound. Patient is feeling well and has no complaints. She appears comfortable. Physical Exam Physical Exam: A good portion of the blackened tissue has been removed. Wound looks entirely better. There are some areas on the outer edges that have the question of some purulence in a deeper portion of the skin that may require deeper debridement. Results & Data ([facility]) Vital Signs (Past 12 Hours) Vital Signs Temp Pulse Resp BP Pulse Ox 12/27/19 10:58 77 20 97 12/27/19 08:43 37.1 C 75 18 126/46 L 97 12/27/19 07:44 36.6 C 76 18 128/73 98 12/27/19 07:20 71 18 99 12/27/19 03:49 36.7 C 80 19 133/56 L 96 (1) Traumatic open wound of right lower leg Encounter type: initial encounter Qualified Code(s): S81.801A - Unspecified open wound, right lower leg, initial encounter
[2019-12-27] MEDS: MIRTAZAPINE TAB 15 MG TAB PO SCH (20:43)
[2019-12-28] MEDS: AZTREONAM 1,000 MG in DEXTROSE 5% 100 ML IV SCH ×3 (04:08→21:09)
--- NOTE | 2019-12-28 06:34 | Hospitalist Progress Note ---
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 -Has been following with wound care for RLE wound 2/2 fall on 12/11. Has comple wilmer 4/ day course of levofloxacin for wound -Afebrile but with Rigors. Tachycardic at 106, RR 25. Leukocytosis of 11.57, pro-Antonio of 2.3, CRP of 6. Lactic acid within normal limits -Wound flap dusky blue, was not healing in setting of PVD and DM II. Ortho on case. -Wound care, further debridement V Wound Vac (3) Symptomatic anemia: Hemoglobin decreased from 8.3 on 12/20 to 7.7 on 12/23, per outpatient lab work, Hb 10.6 today -Likely multifactorial with underlying FLETCHER, anemia of chronic disease from CKD, ? hematoma forming under RLE wound -No reported melena or hematochezia. Initial FOBT negative, will repeat -Recent iron studies indicate need for supplementation. Routine consult for nephro given Acute on CKD 4 and possible need for IV iron infusion -1 unit PRBCs given in ED (4) PVD (peripheral vascular disease): History of multiple vascular interventions including carotid endarterectomy, aortofemoral bypass and femoral-popliteal bypass surgeries -Will hold Plavix for now due to thrombocytopenia 127, likelihood of wound debridement. Plan to resume Plavix if no procedure indicated -Also holding statin for now while receiving IV daptomycin (5) Acute worsening of stage 4 chronic kidney disease: DEMETRIO on CKD stage 4 in setting of sepsis/infection -Avoid nephrotoxic agents when able -Nephrology on case (6) COPD, severe: (7) Nocturnal hypoxemia: No evidence of exacerbation. -Continue home duo nebs, Symbicort, Combivent -2L Oxygen at bedtime (8) CAD (coronary artery disease): h/o BMS in 2008 -Continue metoprolol succinate. Holding statin while receiving dapto (9) DM type 2 (diabetes mellitus, type 2): A1c of 6.1 this month -Hold home agents -SSI while in-patient -BSG AC HS DVT Ppx: SCDs for now (LLE only) in setting of worsening anemia, thrombocytopenia Code status: FULL PCP: [facility] Dispo: on GMF. PT/OT and discharge planning ordered. Labs Checked ROS-No Headache, No Visual Changes, No Nausea, No Vomiting, No Fever, No Chills, No Neck Pain or Stiffness, No Chest Pain, No Palpitations, No SOB, No OCAMPO, No Cough, No Sputum, No Wheezing, No Abdominal Pain, No Diarrhea, No Hematemesis, No Hemoptysis, No Unexpected Weight Loss, No Flank pain, No Melena, No Hematochezia, No Frequency, No Urgency, No Burning, No Hematuria, No Rashes, No Diaphoresis. Appetite is Normal Physical Exam Gen-AAO x 3, NAD, Afebrile, thin frail Head-NCAT, EOMI, PERRLA, Anicteric Sclera, No Posterior Pharyngeal Erythema Neck-Supple, No JVD, No Thyromegaly, No Masses, No LAD, No Bruits Lungs-Clear to Auscultation Bilaterally, No Rales, No Rhonchi, No Wheezing, No Crepitus Chest-No S4, +S1, +S2, No S3, No Murmurs, No Rubs, No Gallops, No Ectopy Abdomen-Soft, Bowel Sounds Present, Non Tender, Non Distended, No Hepatomegaly, No Splenomegaly, No Palpable Masses, No Rebound, No Rigidity, No Guarding Musculoskeletal-Full Range of Motion Bilaterally, No CVAT Extremities-No Cyanosis, No Clubbing, leg dressed Nuero-Cranial Nerves II-XII grossly intact, Motor WNL, DTRs WNL, Strength WNL, Non Focal Psych-Normal Mood Admission and Anticipated Discharge Date Admission Date: December 25, 2019 Results & Data Results & Data ([facility]) Vital Signs (Past 12 Hours) Vital Signs Temp Pulse Pulse Resp BP Pulse Ox 12/27/19 23:00 37.0 C 91 H 18 128/62 96 12/27/19 19:58 72 20 97 (1) Traumatic open wound of right lower leg Encounter type: initial encounter Qualified Code(s): S81.801A - Unspecified open wound, right lower leg, initial encounter
[2019-12-28] MEDS: IPRATROPIUM BROMIDE HFA INHALER INH SCH ×4 (07:12→19:05)
[2019-12-28] MEDS: ALBUTEROL HFA 8 GM INHALER INH SCH ×4 (07:13→19:05)
[2019-12-28] MEDS: FERROUS SULFATE 325 MG TAB PO SCH (08:22)
[2019-12-28] MEDS: FLUTICASONE/VILANTEROL 100/25MCG 14 PUFFS/INHALER INH SCH (08:22)
[2019-12-28] MEDS: METOPROLOL SUCC 50MG EXT REL TAB PO SCH (08:22)
[2019-12-28] MEDS: PANTOprazole 40 MG TAB PO SCH (08:22)
[2019-12-28] MEDS: INSULIN ASPART 100 UNITS/ML 3 ML PEN SC SCH ×4 (08:23→21:10)
[2019-12-28] MEDS ORDERED: DEXTROSE 50% 50 ML SYRINGE IV PRN (08:33)
[2019-12-28] MEDS ORDERED: GLUCAGON FOR INJ 1 MG VIAL SQ PRN (08:33)
[2019-12-28] MEDS ORDERED: GLUCOSE 10 TABS/TUBE PO PRN (08:33)
[2019-12-28] MEDS ORDERED: GLUCOSE 40% GEL 15 GM TUBE PO PRN (08:33)
[2019-12-28] MEDS ORDERED: CARBOHYDRATES FOR HYPOGLYCEMIA PO PRN (08:33)
[2019-12-28] MEDS ORDERED: DC ALL PREVIOUSLY ORDERED DIABETES MEDS ONE (08:33)
[2019-12-28] MEDS ORDERED: PHARMACY GLYCEMIC MGMT CONSULT PRN (08:43)
[2019-12-28 08:48] LABS: Hematocrit (blood only) 29.8 % (37-47); Hemoglobin 9.8 g/dL (12.0-16.0); Mean Corpuscular Hemoglobin 32.2 pg (25-34); Mean Corpuscular Hgb Conc 32.9 g/dL (32-36); Mean Platelet Volume 10.3 fL (7.4-10.4); Platelet Count 125 K/uL (130-400); RDW Coefficient of Variation 14.8 % (11.5-14.5); RDW Standard Deviation 53.3 fL (36.4-46.3); Red Blood Count 3.04 M/uL (4.2-5.4); White Blood Count 7.94 K/uL (4.8-10.8)
[2019-12-28] MEDS ORDERED: INSULIN GLARGINE SOLOSTAR 100 UNITS/ML 3 ML PEN SC SCH (09:00)
[2019-12-28 09:12] LABS: BUN Creatinine Ratio 39.5 (10-20); Calcium 8.6 mg/dl (8.5-10.1); Creatinine Clr Calc Pharmacy 15.4 ml/min; Est GFR (African American) 30.7; Est GFR (Non-African American) 26.5; Potassium 4.9 mmol/L (3.5-5.1)
--- NOTE | 2019-12-28 09:22 | Pharmacy Report ---
Glycemic Control Consultation - Date of Service December 28, 2019 - Scope Scope: Glycemic Pharmacist consulted for glycemic control and to write orders per [facility] inpatient glycemic control protocol. - Objective Weight: 39.1 kg Accuchecks BSG (last 24hrs): 12/27/19 12/27/19 12/27/19 11:54 16:50 20:37 Glucose POC Glucose 161 H 146 H 212 H 12/28/19 12/28/19 12/28/19 07:32 07:32 08:38 Glucose 278 H POC Glucose 316 H* 306 H* Laboratory Data (last 24hrs): 12/28/19 08:38 Potassium 4.9 Carbon Dioxide 26 Anion Gap 3.0 Creatinine 1.77 H Est Cr Clr Drug Dosing 15.4 - Recent Pertinent Medications Outpatient Anti-diabetic Regimen: * glipizide, tradjenta * A1c = 6.1 % per provider notes The patient is currently receiving: * Basal insulin: none * Correctional Insulin: Novolog Correction per scale ACHS Goal Range: Low 120 mg/dL - High 160 mg/dL Correction Factor: 65 mg/dL/unit * Prandial insulin: Per carb ratio of 1 unit per 21 grams CHO consumed Risk Factors for Insulin Resistance: * Infection: leg infection * Diet: yes - Assessment & Plan Assessment & Plan: ASSESSMENT: * 79 year old female with PMHx significant for CKD, DM2, CAD, htn, COPD, anemia. Also with open wound on leg, may needing debridement. * Pharmacy consulted for glycemic management. Patient managed only on oral agents at home. A1C of 6.1 per provider notes. * BSGs have been slightly elevated last couple of days ranging from 118-212 mg/dL. * BSG this AM at time of consult, 306 mg/dL - unclear for reasoning as last two days fasting has been 125-145 mg/dL. Correctional insulin already given this AM. May add scale for Lantus at HS tonight. May also tighten CR slightly today PLAN FOR INPATIENT GLYCEMIC CONTROL: * Holding outpatient oral diabetes medications * Basal insulin * Lantus - per scale at HS 0-7 units based upon BSG * Bolus insulin * NovoLog per scale ACHS or Q6hrs while NPO * Goal Range: Low 120 mg/dL - High 160 mg/dL * Correction Factor: 65 mg/dL/unit * Nutritional / Prandial insulin per carb ratio of 1 unit per 15 grams CHO consumed * Please note that the plan above was derived based on current level of insulin resistance and hospital stress. These recommendations are appropriate for inpatient admission only. Plan of care upon discharge will need to be reassessed to avoid potential outpatient hypo/hyperglycemia. Thank you.
--- NOTE | 2019-12-28 10:30 | Nephrology Progress Note ---
Date of Service December 28, 2019 Assessment & Plan (1) Acute worsening of stage 4 chronic kidney disease: Patient with acute kidney injury on CKD. She has CKD stage IV at baseline with baseline creatinine of 2. Admission creatinine was 2.59 which is higher than her baseline. This is likely hemodynamically mediated in setting of anemia. Renal function is improving with correction of anemia. Creatinine slightly better today at 1.77. Electrolytes are stable and no indication for dialysis. -Monitor with daily BMP -Avoid nephrotoxins such as NSAIDs and contrast. (2) Symptomatic anemia: Patient with anemia of renal disease and possibly iron deficiency anemia. Hemoglobin is stable at 10.3 today. We will give her Procrit 10,000 units subcu weekly, first dose was on 12/26/2019. Will check iron levels next week or as an outpatient. (3) HTN (hypertension): Blood pressure is controlled on current regimen. No changes today. Admission and Anticipated Discharge Date Admission Date: December 25, 2019 Subjective She feels better today denies any shortness of breath. She went for a walk with physical therapy. Wound on right leg is wrapped. No urinary symptoms. Creatinine is stable Review of Systems Review of Systems: All systems reviewed & are unremarkable except as noted in HPI & below Physical Exam Physical Exam: General exam: Cachectic, appears comfortable, no acute distress HEENT: Pupils are equal and reactive to light Neck: No JVD, neck is supple trachea is midline Respiratory system: Clear breath sounds bilaterally. Gastrointestinal: Abdomen is soft, non distended, non tender, bowel sounds are present CVS: Regular rate and rhythm. No murmurs, rubs or gallops Musculoskeletal: No joint or muscle tenderness Extremities: Non tender, no edema, peripheral pulses are present, right leg wound wrapped Neuro: Oriented x3, no tremors, no focal neurological deficits Skin: No rashes Results & Data ([facility]) Vital Signs (Past 12 Hours) Vital Signs Temp Pulse Pulse Resp BP Pulse Ox 12/28/19 07:14 37.2 C 81 18 129/59 L 92 12/28/19 07:13 81 18 98 12/27/19 23:00 37.0 C 91 H 18 128/62 96 Laboratory Results 12/28/19 08:38 12/28/19 08:38 WBC 7.94 RBC 3.04 L MCV 98.0 MCH 32.2 MCHC 32.9 RDW Std Deviation 53.3 H RDW Coeff of Leslie 14.8 H Plt Count 125 L MPV 10.3
--- NOTE | 2019-12-28 10:50 | Wound Progress Note ---
Date of Service December 27, 2019 Assessment & Plan (1) Traumatic open wound of right lower leg: Eschar is soft and then there is old blood draining from the wound. Wound was cleaned with iodine. Leg was then anesthetized with 8 cc of 2% lidocaine. Using forceps and a scalpel the eschar was debrided. Wound was then irrigated with copious amounts of saline. Patient tolerated the procedure well with no complications. This represents I&D of a hematoma Wound borders are still demarcating. There is a possibility of needing a deeper debridement to evacuate additional hematoma. I did examine the patient with Buddy Diez PA-C. We will dressed the wound with Aquacel Ag and a [address] Leticia Finch will reevaluate tomorrow to determine whether patient needs surgical debridement or can go ahead with a wound VAC. We will continue to follow. Subjective Patient seen at bedside with NORBERT. Still complaining of significant pain in her limb. Review of Systems Review of Systems: All systems reviewed & are unremarkable except as noted in HPI & below Physical Exam Skin: Wound measuring as recorded in nursing documentation. Eschar has softened. There is some old bloody drainage from hematoma. Neurologic: awake; not confused Psychiatric: A+Ox3, euthymic affect Results & Data Vital Signs (Past 12 Hours) Vital Signs Temp Pulse Resp BP Pulse Ox 12/27/19 10:58 77 20 97 12/27/19 08:43 37.1 C 75 18 126/46 L 97 12/27/19 07:44 36.6 C 76 18 128/73 98 12/27/19 07:20 71 18 99 12/27/19 03:49 36.7 C 80 19 133/56 L 96 PG Care Time/CCT Total # of Minutes Spent Total Time Spent with Patient: Total time spent is greater than 50% in coordination of care (as documented) at patient's floor/unit and/or counseling patient: Coding Level of Care Code 42794 Subseq Hosp Care Lvl 3 Diagnoses Traumatic open wound of right lower leg S81.801A Encounter type: initial encounter (1) Traumatic open wound of right lower leg Encounter type: initial encounter Qualified Code(s): S81.801A - Unspecified open wound, right lower leg, initial encounter
--- NOTE | 2019-12-28 15:49 | Wound Progress Note ---
Date of Service December 28, 2019 Assessment & Plan (1) Traumatic open wound of right lower leg: Wound is improving. Wound borders are still demarcating but still question whether or not there is deeper hematoma. No debridement was required. At this point would continue to dress wound with Adaptic and Aquacel Ag. Await further evaluation from Dr. Finch. We will continue to follow. Subjective Patient seen at bedside. No new complaints. Review of Systems Review of Systems: All systems reviewed & are unremarkable except as noted in HPI & below Physical Exam Skin: Wound measuring as recorded in nursing documentation. Wound is covered with fibrin and slough. Wound borders are still evolving however appear to be improved. Neurologic: awake; not confused Results & Data Vital Signs (Past 12 Hours) Vital Signs Temp Pulse Pulse Resp BP Pulse Ox 12/28/19 15:26 36.6 C 83 16 123/44 L 99 12/28/19 11:19 62 20 98 12/28/19 07:14 37.2 C 81 18 129/59 L 92 12/28/19 07:13 81 18 98 PG Care Time/CCT Total # of Minutes Spent Total Time Spent with Patient: Total time spent is greater than 50% in coordination of care (as documented) at patient's floor/unit and/or counseling patient: Coding Level of Care Code 19491 Subseq Hosp Care Lvl 2 Diagnoses Traumatic open wound of right lower leg S81.801A Encounter type: initial encounter (1) Traumatic open wound of right lower leg Encounter type: initial encounter Qualified Code(s): S81.801A - Unspecified open wound, right lower leg, initial encounter
[2019-12-28] MEDS: LANTUS PER UNIT CHARGE SQ SCH (21:10)
[2019-12-28] MEDS: MIRTAZAPINE TAB 15 MG TAB PO SCH (21:11)
[2019-12-29] MEDS: ALBUT/IPRATROP 3MG/0.5MG NEB 3 ML VIAL INH PRN ×2 (04:31→22:06)
[2019-12-29] MEDS: AZTREONAM 1,000 MG in DEXTROSE 5% 100 ML IV SCH ×3 (04:40→22:36)
--- NOTE | 2019-12-29 06:46 | Hospitalist Progress Note ---
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 -Has been following with wound care for RLE wound 2/2 fall on 12/11. Has comple wilmer 4/ day course of levofloxacin for wound -Afebrile but with Rigors. Tachycardic at 106, RR 25. Leukocytosis of 11.57, pro-Antonio of 2.3, CRP of 6. Lactic acid within normal limits -Wound flap dusky blue, was not healing in setting of PVD and DM II. Ortho on case. -Wound care, further debridement V Wound Vac (3) Symptomatic anemia: Hemoglobin decreased from 8.3 on 12/20 to 7.7 on 12/23, per outpatient lab work- will monitor -Likely multifactorial with underlying FLETCHER, anemia of chronic disease from CKD, hematoma -No reported melena or hematochezia. Initial FOBT negative -Recent iron studies indicate need for supplementation. Routine consult for nephro given Acute on CKD 4 and possible need for IV iron infusion -1 unit PRBCs given in ED (4) PVD (peripheral vascular disease): History of multiple vascular interventions including carotid endarterectomy, aortofemoral bypass and femoral-popliteal bypass surgeries -Will hold Plavix for now due to thrombocytopenia, wound debridement. Plan to resume Plavix after procedures -Also holding statin for now while receiving IV daptomycin (5) Acute worsening of stage 4 chronic kidney disease: DEMETRIO on CKD stage 4 in setting of sepsis/infection -Avoid nephrotoxic agents when able -Nephrology on case (6) COPD, severe: (7) Nocturnal hypoxemia: No evidence of exacerbation. -Continue home duo nebs, Symbicort, Combivent -2L Oxygen at bedtime (8) CAD (coronary artery disease): h/o BMS in 2008 -Continue metoprolol succinate. Holding statin while receiving dapto (9) DM type 2 (diabetes mellitus, type 2): A1c of 6.1 this month -Lantus BID -SSI while in-patient -BSG AC HS DVT Ppx: SCDs for now (LLE only) in setting of worsening anemia, thrombocytopenia Code status: FULL PCP: [facility] Dispo: PT/OT and discharge planning ordered. Labs Checked ROS-No Headache, No Visual Changes, No Nausea, No Vomiting, No Fever, No Chills, No Neck Pain or Stiffness, No Chest Pain, No Palpitations, No SOB, No OCAMPO, No Cough, No Sputum, No Wheezing, No Abdominal Pain, No Diarrhea, No Hematemesis, No Hemoptysis, No Unexpected Weight Loss, No Flank pain, No Melena, No Hematochezia, No Frequency, No Urgency, No Burning, No Hematuria, No Rashes, No Diaphoresis. Appetite is Normal Physical Exam Gen-AAO x 3, NAD, Afebrile, thin frail Head-NCAT, EOMI, PERRLA, Anicteric Sclera, No Posterior Pharyngeal Erythema Neck-Supple, No JVD, No Thyromegaly, No Masses, No LAD, No Bruits Lungs-Clear to Auscultation Bilaterally, No Rales, No Rhonchi, No Wheezing, No Crepitus Chest-No S4, +S1, +S2, No S3, No Murmurs, No Rubs, No Gallops, No Ectopy Abdomen-Soft, Bowel Sounds Present, Non Tender, Non Distended, No Hepatomegaly, No Splenomegaly, No Palpable Masses, No Rebound, No Rigidity, No Guarding Musculoskeletal-Full Range of Motion Bilaterally, No CVAT Extremities-No Cyanosis, No Clubbing, leg dressed Nuero-Cranial Nerves II-XII grossly intact, Motor WNL, DTRs WNL, Strength WNL, Non Focal Psych-Normal Mood Admission and Anticipated Discharge Date Admission Date: December 25, 2019 Results & Data Results & Data ([facility]) Vital Signs (Past 12 Hours) Vital Signs Temp Pulse Pulse Resp BP Pulse Ox 12/29/19 04:31 80 26 H 100 12/28/19 22:46 36.8 C 89 18 124/54 L 97 12/28/19 19:09 61 22 96 (1) Traumatic open wound of right lower leg Encounter type: initial encounter Qualified Code(s): S81.801A - Unspecified open wound, right lower leg, initial encounter
[2019-12-29] MEDS: ALBUTEROL HFA 8 GM INHALER INH SCH ×4 (07:25→19:27)
[2019-12-29] MEDS: IPRATROPIUM BROMIDE HFA INHALER INH SCH ×4 (07:26→19:27)
--- NOTE | 2019-12-29 08:33 | Pharmacy Report ---
Pharmacy Glycemic Short Note 2 - Date of Service December 29, 2019 - Glycemic Short BSG Results (Last 24 hours): 12/28/19 12/28/19 12/28/19 08:38 11:31 16:35 Glucose 278 H POC Glucose 201 H 113 H 12/28/19 12/29/19 20:16 07:49 Glucose POC Glucose 113 H 147 H OUTPATIENT ANTIDIABETIC REGIMEN: * Glipizide 5 mg PO daily * Linagliptin 5 mg PO daily ASSESSMENT: * Pharmacy consulted yesterday morning for elevated AM BSG of 306 mg/dL * BSGs much better controlled yesterday as the day went on (201 -> 113 -> 113 mg/dL) * Patient received 13 units of prandial/correctional insulin yesterday with no basal insulin * Fasting BSG of 147 mg/dL this morning * Continues on daptomycin and aztreonam for RLE wound PLAN FOR INPATIENT GLYCEMIC CONTROL: * Hold outpatient oral diabetes medications * Basal insulin * Lantus scale HS - 0-7 units (see EHR for details) * Bolus insulin * NovoLog per scale ACHS or Q6hrs while NPO * Goal Range: Low 120 mg/dL - High 160 mg/dL * Correction Factor: 65 mg/dL/unit * Nutritional / Prandial insulin per carb ratio of 1 unit per 15 grams CHO consumed PLAN FOR DISCHARGE: * Reasonable to continue patient's home regimen of glipizide 5 mg PO daily and linagliptin 5 mg PO daily
[2019-12-29] MEDS: INSULIN ASPART 100 UNITS/ML 3 ML PEN SC SCH ×4 (08:56→22:39)
[2019-12-29] MEDS: METOPROLOL SUCC 50MG EXT REL TAB PO SCH (08:57)
[2019-12-29] MEDS: FERROUS SULFATE 325 MG TAB PO SCH (08:57)
[2019-12-29] MEDS: PANTOprazole 40 MG TAB PO SCH (08:57)
[2019-12-29] MEDS: FLUTICASONE/VILANTEROL 100/25MCG 14 PUFFS/INHALER INH SCH (08:57)
--- NOTE | 2019-12-29 10:46 | Nephrology Progress Note ---
Date of Service December 29, 2019 Assessment & Plan (1) Acute worsening of stage 4 chronic kidney disease: Patient with acute kidney injury on CKD. She has CKD stage IV at baseline with baseline creatinine of 2. Admission creatinine was 2.59 which is higher than her baseline. This is likely hemodynamically mediated in setting of anemia. Renal function is improving with correction of anemia. Creatinine slightly better today at 1.77. Electrolytes are stable and no indication for dialysis. -Monitor with daily BMP -Avoid nephrotoxins such as NSAIDs and contrast. (2) Symptomatic anemia: Patient with anemia of renal disease and possibly iron deficiency anemia. Hemoglobin is stable at 10.3 yesterday. We will give her Procrit 10,000 units subcu weekly, first dose was on 12/26/2019. Will check iron levels next week or as an outpatient. (3) HTN (hypertension): Blood pressure is above target but acceptable. No changes today. Admission and Anticipated Discharge Date Admission Date: December 25, 2019 Subjective She had an episode of shortness of breath this morning but better now. She is eating and drinking well. No urinary symptoms. Review of Systems Review of Systems: All systems reviewed & are unremarkable except as noted in HPI & below Physical Exam Physical Exam: General exam: Cachectic, appears comfortable, no acute distress HEENT: Pupils are equal and reactive to light Neck: No JVD, neck is supple trachea is midline Respiratory system: Clear breath sounds bilaterally. Gastrointestinal: Abdomen is soft, non distended, non tender, bowel sounds are present CVS: Regular rate and rhythm. No murmurs, rubs or gallops Musculoskeletal: No joint or muscle tenderness Extremities: Non tender, no edema, peripheral pulses are present, ulcer on the right leg Neuro: Oriented, no tremors, no focal neurological deficits Skin: Easy bruising Results & Data ([facility]) Vital Signs (Past 12 Hours) Vital Signs Temp Pulse Resp BP Pulse Ox 12/29/19 07:26 78 18 98 12/29/19 07:18 36.8 C 85 18 178/75 H 95 12/29/19 04:31 80 26 H 100 12/28/19 22:46 36.8 C 89 18 124/54 L 97 Laboratory Results 12/28/19 08:38
[2019-12-29 11:08] LABS: Hematocrit (blood only) 30.2 % (37-47); Hemoglobin 9.7 g/dL (12.0-16.0); Mean Corpuscular Hemoglobin 31.4 pg (25-34); Mean Corpuscular Hgb Conc 32.1 g/dL (32-36); Mean Corpuscular Volume 97.7 fL (80-100); Mean Platelet Volume 10.3 fL (7.4-10.4); Platelet Count 147 K/uL (130-400); RDW Coefficient of Variation 14.8 % (11.5-14.5); RDW Standard Deviation 52.9 fL (36.4-46.3); Red Blood Count 3.09 M/uL (4.2-5.4); White Blood Count 9.47 K/uL (4.8-10.8)
[2019-12-29 11:24] LABS: BUN Creatinine Ratio 46.9 (10-20); Calcium 8.4 mg/dl (8.5-10.1); Creatinine Clr Calc Pharmacy 18.5 ml/min; Est GFR (African American) 38.4; Est GFR (Non-African American) 33.1; Potassium 5.3 mmol/L (3.5-5.1)
[2019-12-29] MEDS ORDERED: DAPTOMYCIN IV SCH (12:00)
[2019-12-29] MEDS: DAPTOmycin 150 MG in SYRINGE 0 ML IV SCH (12:18)
[2019-12-29] MEDS: LANTUS PER UNIT CHARGE SQ SCH (22:37)
[2019-12-29] MEDS: MIRTAZAPINE TAB 15 MG TAB PO SCH (22:39)
[2019-12-30] MEDS: AZTREONAM 1,000 MG in DEXTROSE 5% 100 ML IV SCH ×3 (05:36→19:41)
[2019-12-30] MEDS: ALBUTEROL HFA 8 GM INHALER INH SCH ×3 (07:38→15:23)
[2019-12-30] MEDS: IPRATROPIUM BROMIDE HFA INHALER INH SCH ×3 (07:38→15:23)
[2019-12-30] MEDS: CARBOHYDRATES FOR HYPOGLYCEMIA PO PRN ×2 (08:06→08:25)
[2019-12-30] MEDS: METOPROLOL SUCC 50MG EXT REL TAB PO SCH (08:18)
[2019-12-30] MEDS: PANTOprazole 40 MG TAB PO SCH (08:18)
[2019-12-30] MEDS: FERROUS SULFATE 325 MG TAB PO SCH (08:18)
[2019-12-30] MEDS: hydroCHLOROthiazide 25 MG TAB PO SCH (08:18)
[2019-12-30] MEDS: FLUTICASONE/VILANTEROL 100/25MCG 14 PUFFS/INHALER INH SCH (08:19)
[2019-12-30] MEDS: INSULIN ASPART 100 UNITS/ML 3 ML PEN SC SCH ×4 (08:37→20:16)
--- NOTE | 2019-12-30 09:07 | Pharmacy Report ---
Pharmacy Glycemic Short Note 2 - Date of Service December 30, 2019 - Glycemic Short BSG Results (Last 24 hours): 12/29/19 12/29/19 12/29/19 10:53 12:20 16:56 Glucose 214 H POC Glucose 200 H 211 H 12/29/19 12/29/19 12/30/19 19:55 21:52 07:59 Glucose POC Glucose 207 H 199 H 39 L* 12/30/19 12/30/19 12/30/19 08:00 08:20 08:35 Glucose POC Glucose 46 L* 60 L* 69 L* 12/30/19 08:50 Glucose POC Glucose 99 OUTPATIENT ANTIDIABETIC REGIMEN: * Glipizide 5 mg PO daily * Linagliptin 5 mg PO daily ASSESSMENT: * BSGs elevated yesterday, ranging 147-211 mg/dL * Patient received 23 units of insulin, 7 units of basal at HS and 16 units of prandial/correctional * Unfortunately, patient had an episode of hypoglycemia this morning (BSG of 46 mg/dL) - will hold off on basal for now * Continues on daptomycin and aztreonam for RLE wound PLAN FOR INPATIENT GLYCEMIC CONTROL: * Hold outpatient oral diabetes medications * Basal insulin - hold * Bolus insulin - continue * NovoLog per scale ACHS or Q6hrs while NPO * Goal Range: Low 120 mg/dL - High 160 mg/dL * Correction Factor: 65 mg/dL/unit * Nutritional / Prandial insulin per carb ratio of 1 unit per 15 grams CHO consumed PLAN FOR DISCHARGE: * Reasonable to continue patient's home regimen of glipizide 5 mg PO daily and linagliptin 5 mg PO daily
--- NOTE | 2019-12-30 09:43 | Nephrology Progress Note ---
Date of Service December 30, 2019 Assessment & Plan (1) Acute worsening of stage 4 chronic kidney disease: Patient with acute kidney injury on CKD. She has CKD stage IV at baseline with baseline creatinine of 2. Admission creatinine was 2.59 which is higher than her baseline. This is likely hemodynamically mediated in setting of anemia. Renal function is improving with correction of anemia. Creatinine slightly better today at 1.47. Potassium is high today. -Low K diet -We will add hydrochlorthiazide for blood pressure -Monitor with daily BMP -Avoid nephrotoxins such as NSAIDs and contrast. (2) Symptomatic anemia: Patient with anemia of renal disease and possibly iron deficiency anemia. Hemoglobin is stable at 10.3 yesterday. We will give her Procrit 10,000 units subcu weekly, first dose was on 12/26/2019. Will check iron levels next week or as an outpatient. (3) HTN (hypertension): Blood pressure is above target. Start hydrochlorothiazide 25 mg daily. No changes today. Admission and Anticipated Discharge Date Admission Date: December 25, 2019 Subjective She feels better today. No shortness of breath or pain. Blood pressure is high today with systolic of 186 Review of Systems Review of Systems: All systems reviewed & are unremarkable except as noted in HPI & below Physical Exam Physical Exam: General exam: Cachectic, appears comfortable, no acute distress HEENT: Pupils are equal and reactive to light Neck: No JVD, neck is supple trachea is midline Respiratory system: Clear breath sounds bilaterally. Gastrointestinal: Abdomen is soft, non distended, non tender, bowel sounds are present CVS: Regular rate and rhythm. No murmurs, rubs or gallops Musculoskeletal: No joint or muscle tenderness Extremities: Non tender, no edema, peripheral pulses are present Neuro: Oriented, no tremors, no focal neurological deficits Skin: No rashes, also on the right leg Results & Data ([facility]) Vital Signs (Past 12 Hours) Vital Signs Temp Pulse Resp BP Pulse Ox 12/30/19 07:38 75 16 98 12/30/19 07:26 36.4 C L 75 18 186/68 H 98 12/29/19 23:09 36.6 C 85 20 167/62 H 96 12/29/19 22:07 90 24 96 Laboratory Results 12/29/19 10:53 12/29/19 10:53 WBC 9.47 RBC 3.09 L MCV 97.7 MCH 31.4 MCHC 32.1 RDW Std Deviation 52.9 H RDW Coeff of Leslie 14.8 H Plt Count 147 MPV 10.3
[2019-12-30] MEDS ORDERED: ALBUT/IPRATROP 3MG/0.5MG NEB 3 ML VIAL NEB STA (18:52)
--- NOTE | 2019-12-30 18:59 | Hospitalist Progress Note ---
Date of Service December 30, 2019 Assessment & Plan (1) Hypoxia: has severe COPD, and uses nocturnal oxygen per prior notes. Currently requiring oxygen 27/12. (2) Traumatic open wound of right lower leg: Wound care plan as above. (3) Symptomatic anemia: Improved since 1 unit blood given in ER. Anemia is multifactorial including underlying iron deficiency (hold iron supplement for now to avoid unnecessary medication interactions and possible GI side effects), chronic inflammation and acute blood loss related to the RLE hematoma present on admission. H/H 8.3/21 on arrival to ER, which improved to 10.6/34 post transfusion. H/H remains stable. Procrit was started per Nephrology. (4) COPD, severe: Some difficulty with expectorating mucous this evening. Does not appear to be in exacerbation. Reports that she has been breathing well today and without any coughing. Reports using 2LPM via nasal canula at home and appears to be close to her baseline. No wheezing on exam, but poor air movement. Ordered a duoneb treatment now for her. Cont home Atrovent, Breo. Recent CXR was 12/24 and was clear (5) Acute worsening of stage 4 chronic kidney disease: Improved. Avoid nephrotoxic agents when able (6) DM type 2 (diabetes mellitus, type 2): Glycemic pharmacist managing. Episode of hypoglycemia this morning prompted a hold on basal insulin. Cont carb coverage and correction factor. Uses glipizide and Tradjenta at home, which are held. Recent A1C 6.1. (7) Sepsis: Resuscitated, source is RLE wound but question infection as wound cultures have been negative. She underwent debridement per wound care on 12/26 and is supposed to be evaluated further for the need to repeat the debridement or add a wound vac. Will await further recs from wound/Ortho. Remains afebrile and improved clinically. Cont Dapto and Aztreonam for now. Will likely stop antibiotics altogether if she is doing well. (8) CAD (coronary artery disease): h/o BMS in 2008 -Continue metoprolol succinate. Restarted Plavix. Holding statin while receiving dapto (9) PVD (peripheral vascular disease): History of multiple vascular interventions including carotid endarterectomy, aortofemoral bypass and femoral-popliteal bypass surgeries Plavix initially held in setting of wound debridement and thrombocytopenia. Platelets are within normal limits and there have been no procedures in 3 days. Will restart Plavix now. Cont holding statin while on the Daptomycin. (10) DVT prophylaxis: SCDs/ambulate as tolerated. Relative contraindication for chemoprophylaxis in setting of recent blood transfusion for her bleeding wound and hematoma. Full Code Dispo-cont hospitalization pending further wound vac vs debridement. Patient lives alone. Pending PT/OT evaluation and recs. Joy Mcelroy DO [facility] Hospitalist Admission and Anticipated Discharge Date Admission Date: December 25, 2019 Subjective feels well today except seems to be having some difficutly expectorating some mucous denies pain in her leg which is draining onto the optifoam--dressing removed and nurse notified. pt is eating well but has a restricted diet because of sores in her mouth she feels are from the antibiotics recently given to her? and moving her bowels well Review of Systems Review of Systems: All systems reviewed & are unremarkable except as noted in Subjective Physical Exam Physical Exam: CONSTITUTIONAL: thin, frail, vitals as above, generally ill- appearing EYES: normal conjunctivae, no scleral icterus ENT: external ear and nose normal, MMM RESPIRATORY: clear to auscultation bilaterally without crackles, wheezes or rales, however, poor air movement. CARDIOVASCULAR: regular rate and rhythm, S1 and 2 heard without murmurs, gallops or rubs, no JVD, no peripheral edema GASTROINTESTINAL: soft, nontender, nondistended MUSCULOSKELETAL: strength 5/5 throughout, head is normocephalic and atraumatic, able to move around in bed without issues. L hand with some swelling noted today. SKIN: warm and dry, multiple areas of ecchymosis. Skin is very fragile. NEUROLOGIC: No facial palsy, no dysarthria. CN 2-12 grossly intact, no sensory deficit, normal cognition, normal speech, no gross focal deficits. PSYCHIATRIC: alert cooperative and oriented to person, place and time. Results & Data Results & Data ([facility]) Vital Signs (Past 12 Hours) Vital Signs Temp Pulse Resp BP Pulse Ox 12/30/19 15:56 36.5 C 77 16 128/62 100 12/30/19 15:27 75 16 94 12/30/19 07:38 75 16 98 12/30/19 07:26 36.4 C L 75 18 186/68 H 98 Medications Administered Current Inpatient Medications Acetaminophen (Tylenol) 650 mg PO Q4H PRN PRN Reason: Pain or Fever Stop: 01/24/20 12:56 Albuterol (Ventolin Hfa) 2 puffs INH Q6H PRN PRN Reason: Shortness Of Breath Stop: 01/24/20 12:56 Albuterol (Duoneb) 3 ml INH Q4H PRN PRN Reason: Shortness Of Breath Stop: 01/24/20 12:56 Last Admin: 12/29/19 22:06 Dose: 3 ml Documented by: Albuterol (Duoneb) 3 ml NEB NOW STA Stop: 12/30/19 18:53 Aztreonam (Aztreonam Consult Active) 1 ea N/A UD PRN PRN Reason: Consult Stop: 01/24/20 14:12 Dextrose (Dextrose 50%) 25 - 50 ml IV UD PRN; Protocol PRN Reason: Hypoglycemia Protocol Stop: 01/24/20 13:58 Ferrous Sulfate (Feosol) 325 mg PO QAM [facility] Stop: 01/24/20 14:29 Last Admin: 12/30/19 08:18 Dose: 325 mg Documented by: Fluticasone/Vilanterol (Breo Ellipta 100/25 Mcg Inh) 1 puffs INH DAILY [facility] Stop: 01/25/20 08:59 Last Admin: 12/30/19 08:19 Dose: 1 puffs Documented by: Glucagon (Glucagen) 1 mg SQ UD PRN; Protocol PRN Reason: Hypoglycemia Protocol Stop: 01/24/20 13:58 Glucose (Dex4 Glucose) 4 - 8 tabs PO UD PRN; Protocol PRN Reason: Hypoglycemia Protocol Stop: 01/24/20 13:58 Glucose (Glucose 40%) 15 - 30 gm PO UD PRN; Protocol PRN Reason: Hypoglycemia Protocol Stop: 01/24/20 13:58 Hydrochlorothiazide (Hctz) 25 mg PO QAM [facility] Stop: 01/29/20 08:59 Last Admin: 12/30/19 08:18 Dose: 25 mg Documented by: Aztreonam 1,000 mg/ Dextrose 110 mls @ 110 mls/hr IV Q8H ANA; Protocol Stop: 01/01/20 19:59 Last Infusion: 12/30/19 14:13 Dose: Infused Documented by: Daptomycin 150 mg/ Syringe 3 mls @ 2.25 mls/min IV Q48H ANA; Protocol Stop: 01/03/20 11:59 Last Admin: 12/29/19 12:18 Dose: 2.25 mls/min Documented by: Insulin Aspart (Novolog Flexpen) 0 units SC ACHS ANA Stop: 01/24/20 16:29 Last Admin: 12/30/19 17:26 Dose: 5 units Documented by: Metoprolol Succinate (Toprol Xl) 100 mg PO DAILY ANA Stop: 01/25/20 08:59 Last Admin: 12/30/19 08:18 Dose: 100 mg Documented by: Mirtazapine (Remeron) 7.5 mg PO HS ANA Stop: 01/24/20 20:59 Last Admin: 12/29/19 22:39 Dose: 7.5 mg Documented by: Miscellaneous (Carbohydrates For Hypoglycemia) 15 - 30 gm PO UD PRN PRN Reason: Hypoglycemia Protocol Stop: 01/24/20 13:58 Last Admin: 12/30/19 08:25 Dose: 15 gm Documented by: Miscellaneous Information (Consult) 1 ea N/A UD PRN PRN Reason: Consult Stop: 01/24/20 11:12 Miscellaneous Information (Consult Glycemic Management Pharmacy) 1 ea N/A UD PRN; Protocol PRN Reason: consult Stop: 01/27/20 08:42 Ondansetron HCl (Zofran) 4 mg IV Q6H PRN PRN Reason: Nausea Stop: 01/24/20 12:56 Pantoprazole Sodium (Protonix) 40 mg PO DAILY ANA Stop: 01/25/20 08:59 Last Admin: 12/30/19 08:18 Dose: 40 mg Documented by: Tramadol HCl (Ultram) 50 mg PO Q4H PRN PRN Reason: Pain Stop: 01/26/20 11:56 Last Admin: 12/27/19 13:00 Dose: 50 mg Documented by: (1) Traumatic open wound of right lower leg Encounter type: initial encounter Qualified Code(s): S81.801A - Unspecified open wound, right lower leg, initial encounter
[2019-12-30 19:53] LABS: BUN Creatinine Ratio 45.7 (10-20); Calcium 8.7 mg/dl (8.5-10.1); Creatinine Clr Calc Pharmacy 20.3 ml/min; Est GFR (Non-African American) 37.1; Magnesium 1.7 mg/dl (1.8-2.4); Potassium 5.9 mmol/L (3.5-5.1)
[2019-12-30] MEDS ORDERED: DEXTROSE 50% 50 ML SYRINGE IV ONE (20:02)
[2019-12-30] MEDS ORDERED: SODIUM POLYSTYRENE SULFONATE 15G/60ML SUSP PO STA (20:02)
[2019-12-30] MEDS ORDERED: INSULIN HUMAN REGULAR PER UNIT 5 UNITS in SYRINGE 4.95 ML IV STA (20:08)
[2019-12-30] MEDS ORDERED: CALCIUM GLUCONATE 10% 1,000 MG in SODIUM CHLORIDE 0.9% 50 ML IV STA (20:09)
[2019-12-30] MEDS: MIRTAZAPINE TAB 15 MG TAB PO SCH (20:22)
[2019-12-30] MEDS: MAGNESIUM SULFATE / D5W 1 GM/100 ML BAG IV SCH ×2 (21:11→22:40)
[2019-12-31] MEDS: AZTREONAM 1,000 MG in DEXTROSE 5% 100 ML IV SCH ×2 (04:00→11:19)
[2019-12-31 07:10] LABS: Hematocrit (blood only) 29.2 % (37-47); Hemoglobin 9.4 g/dL (12.0-16.0); Mean Corpuscular Hemoglobin 31.1 pg (25-34); Mean Corpuscular Hgb Conc 32.2 g/dL (32-36); Mean Corpuscular Volume 96.7 fL (80-100); Mean Platelet Volume 10.3 fL (7.4-10.4); Platelet Count 180 K/uL (130-400); RDW Coefficient of Variation 14.8 % (11.5-14.5); RDW Standard Deviation 51.7 fL (36.4-46.3); Red Blood Count 3.02 M/uL (4.2-5.4); White Blood Count 7.68 K/uL (4.8-10.8)
[2019-12-31 07:57] LABS: BUN Creatinine Ratio 44.5 (10-20); Calcium 9.1 mg/dl (8.5-10.1); Creatinine Clr Calc Pharmacy 21.8 ml/min; Est GFR (African American) 46.7; Est GFR (Non-African American) 40.3
--- NOTE | 2019-12-31 08:15 | Pharmacy Report ---
Pharmacy Glycemic Short Note 2 - Date of Service December 31, 2019 - Glycemic Short BSG Results (Last 24 hours): 12/30/19 12/30/19 12/30/19 08:20 08:35 08:50 Glucose POC Glucose 60 L* 69 L* 99 12/30/19 12/30/19 12/30/19 11:33 16:36 19:25 Glucose 188 H POC Glucose 177 H 197 H 12/30/19 12/30/19 12/31/19 20:03 21:15 06:27 Glucose 109 H POC Glucose 234 H 221 H 12/31/19 07:36 Glucose POC Glucose 116 H OUTPATIENT ANTIDIABETIC REGIMEN: * Glipizide 5 mg PO daily * Linagliptin 5 mg PO daily ASSESSMENT: * Episode of hypoglycemia yesterday morning (BSG of 46 mg/dL) - held off on basal insulin * BSGs trended up throughout the day - ranging 177-234 mg/dL (will tighten Novolog parameters) * Patient received 12 units of correctional/prandial insulin * Fasting BSG this morning of 116 mg/dL - with no basal insulin given yesterday * Will continue to hold basal given the low fasting BSG yesterday * Continues on daptomycin and aztreonam for RLE wound PLAN FOR INPATIENT GLYCEMIC CONTROL: * Hold outpatient oral diabetes medications * Basal insulin - hold * Bolus insulin - tighten * NovoLog per scale ACHS or Q6hrs while NPO * Goal Range: Low 120 mg/dL - High 160 mg/dL * Correction Factor: 40 mg/dL/unit * Nutritional / Prandial insulin per carb ratio of 1 unit per 12 grams CHO consumed PLAN FOR DISCHARGE: * Reasonable to continue patient's home regimen of glipizide 5 mg PO daily and linagliptin 5 mg PO daily
[2019-12-31] MEDS: FLUTICASONE/VILANTEROL 100/25MCG 14 PUFFS/INHALER INH SCH (08:28)
[2019-12-31] MEDS: hydroCHLOROthiazide 25 MG TAB PO SCH (08:29)
[2019-12-31] MEDS: METOPROLOL SUCC 50MG EXT REL TAB PO SCH (08:29)
[2019-12-31] MEDS: PANTOprazole 40 MG TAB PO SCH (08:29)
[2019-12-31] MEDS: INSULIN ASPART 100 UNITS/ML 3 ML PEN SC SCH ×2 (08:29→12:16)
[2019-12-31] MEDS: ALBUT/IPRATROP 3MG/0.5MG NEB 3 ML VIAL INH PRN (08:47)
[2019-12-31] MEDS ORDERED: CLOPIDOGREL BISULFATE 75 MG TAB PO SCH (09:00)
[2019-12-31] MEDS: DAPTOmycin 150 MG in SYRINGE 0 ML IV SCH (11:19)
--- NOTE | 2019-12-31 12:14 | Communication Note ---
Date of Service: December 31, 2019 Pt being seen by the Wound Team today (Dr Grion/Erendira Falk). Examined wound with Dr Giron. Does not appear to be worsening. Continue conservative care. Ortho will sign off for now. Please call with any questions.
--- NOTE | 2019-12-31 13:48 | Wound Progress Note ---
Date of Service December 31, 2019 Assessment & Plan (1) Traumatic open wound of right lower leg: Wound is improving. Wound borders are still demarcating. No debridement was required. We will dressed with Aquacel Ag and an OPTi foam. Patient is medically stable from a wound standpoint. She likely received enough antibiotic and has a negative wound culture. We will continue to follow. We will see in the office after discharge. Subjective Patient seen at bedside with WOCN. States leg is feeling much better. Review of Systems Review of Systems: All systems reviewed & are unremarkable except as noted in HPI & below Physical Exam Skin: Wound measuring as recorded in nursing documentation. Wound is covered with fibrin and slough. Periwound is intact and ecchymotic. Margins are still demarcating. There is a large amount of drainage and no foul odors. Neurologic: awake; not confused Psychiatric: A+Ox3, euthymic affect Results & Data Vital Signs (Past 12 Hours) Vital Signs Temp Pulse Resp BP Pulse Ox 12/31/19 11:04 36.9 C 97 H 18 159/63 H 91 12/31/19 08:47 83 21 93 12/31/19 07:26 37.2 C 81 18 172/68 H 97 PG Care Time/CCT Total # of Minutes Spent Total Time Spent with Patient: Total time spent is greater than 50% in coordination of care (as documented) at patient's floor/unit and/or counseling patient: Coding Level of Care Code 30269 Subseq Hosp Care Lvl 2 Diagnoses Traumatic open wound of right lower leg S81.801A Encounter type: initial encounter (1) Traumatic open wound of right lower leg Encounter type: initial encounter Qualified Code(s): S81.801A - Unspecified open wound, right lower leg, initial encounter
--- NOTE | 2019-12-31 14:34 | Discharge Summary ---
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 Patient is followed closely by [facility] at home and had lab work performed on 12/20 showing worsening anemia with hemoglobin of 8.3. Repeat lab work from 12/23 showed hemoglobin of 7.7. Creatinine function also worsened at 2.59 (baseline mid 1s- 2). Has wound on right lower extremity from fall downstairs on December 11 that she has been following with wound care for. Was started on Keflex but did not tolerate and was switched to levofloxacin 4 days ago for 7-day course. Plavix was held for 3 days a week ago to help promote healing but patient states that wound is not gotten any smaller. Is experiencing chills today along with some pain of right lower extremity. Has also been feeling lightheaded with visual changes for the past few days. Denies any chest pain, palpitations or shortness of breath worse than baseline. No fever, confusion, headache, abdominal pain, nausea, vomiting, dysuria, diarrhea or constipation. Lives alone at home with home health and ambulates with walker. Takes Plavix due to history of PAD. Also with recent iron studies indicating iron deficiency anemia. Recommended to resume iron supplement p.o. twice daily. Admission Exam Per Admitting Provider General Appearance: vitals as above, NAD, elderly, appears frail, conversing easily Head: normocephalic, atraumatic Eyes: normal inspection, PERRL, conjunctivae normal, anicteric sclerae ENT: external ear and nose normal, oropharynx normal Neck: trachea midline, no thyromegaly, normal visual inspection Respiratory: normal respiratory effort, lungs clear to auscultation but diminished lung sounds, no wheeze, rales, rhonchi Cardiovascular: regular rate, rhythm, no murmur appreciated, normal peripheral pulses Chest: normal inspection of chest Abdomen/GI: normal bowel sounds, soft, nontender, no hepatosplenomegaly Extremities/Musculoskeletal: + RLE with 8 x 7 cm on anterior tibial surface with dusky blue skin flap. Periwound is intact with some edema and erythema. No drainage noted. Extremities motor strength 5/5 Neurologic: PERRL, EOMI, accommodation nl, no face palsy, no dysarthria, CN's II-XI intact bilaterally and moves all extremities Psychiatric: A+Ox3, euthymic affect Skin: See above for RLE wound. Normal color, warm/dry Principal Diagnosis Chronic hypoxemic respiratory failure 2/2 COPD Traumatic open wound of RLE with superficial infection Sepsis 2/2 above-resolved. Iron deficiency anemia Acute worsening of stage IV chronic kidney disease Discharge Exam CONSTITUTIONAL: thin, frail, vitals as above, generally well-appearing EYES: normal conjunctivae, no scleral icterus ENT: external ear and nose normal, MMM RESPIRATORY: clear to auscultation bilaterally without crackles, wheezes or rales, however, poor air movement. CARDIOVASCULAR: regular rate and rhythm, S1 and 2 heard without murmurs, g allops or rubs, no JVD, no peripheral edema GASTROINTESTINAL: soft, nontender, nondistended MUSCULOSKELETAL: strength 5/5 throughout, head is normocephalic and atraumatic, able to move around in bed without issues. Ambulatory. L hand swelling has resolved. SKIN: warm and dry, multiple areas of ecchymosis. Skin is very fragile. RLE wound open, not draining. No significant surrounding redness. NEUROLOGIC: No facial palsy, no dysarthria. CN 2-12 grossly intact, no sensory deficit, normal cognition, normal speech, no gross focal deficits. PSYCHIATRIC: alert cooperative and oriented to person, place and time. Discharge Data Allergies Allergy/AdvReac Type Severity Reaction Status Date / Time codeine Allergy Mild Unknown Verified 12/31/19 22:55 amoxicillin Allergy Unknown unknown Verified 12/31/19 22:55 aspirin Allergy Unknown UNKNOWN Verified 12/31/19 22:55 bacitracin Allergy Unknown Rash Verified 12/31/19 22:55 isosorbide Allergy Unknown unknown Verified 12/31/19 22:55 neomycin Allergy Unknown Rash Verified 12/31/19 22:55 polymyxin B Allergy Unknown Rash Verified 12/31/19 22:55 Consultations 12/25/19 12:57 Consult Case Management - Discharge Planning Routine Consult Nephrology Routine Consult Orthopedic Surgery Routine 12/25/19 17:34 Consult Wound Care Provider Routine Ordered Studies 12/25/19 17:29 US arterial duplex LE RT Routine Hospital Course (1) Hypoxia: has severe COPD, uses supplemental oxygen per records. Cont this. (2) Traumatic open wound of right lower leg: Wound was treated by wound care physician who recommended no additional therapies at time of discharge, including no wound vac at this time. Follow-up wound care clinic in 1 week. (3) Symptomatic anemia: Improved since 1 unit blood given in ER. Anemia is multifactorial including underlying iron deficiency (hold iron supplement for now to avoid unnecessary medication interactions and possible GI side effects), chronic inflammation and acute blood loss related to the RLE hematoma present on admission. H/H 8.3/21 on arrival to ER, which improved to 10.6/34 post transfusion. H/H remains stable. Procrit was started per Nephrology. (4) COPD, severe: Some difficulty with expectorating mucous, which was resolved at time of discharge. No evidence of exacerbation while in the hospital. Cont home Atrovent, Breo. Recent CXR was 12/24 and was clear (5) Acute worsening of stage 4 chronic kidney disease: Improved to baseline at time of discharge. Avoid nephrotoxic agents when able (6) DM type 2 (diabetes mellitus, type 2): Glycemic pharmacist managing. Episodes of hypoglycemia while on basal bolus insulin, prompting a hold on Lantus. Cont carb coverage and correction factor. Uses glipizide and Tradjenta at home, which are held. Recent A1C 6.1. (7) Sepsis: Resuscitated, source is RLE wound but question infection as wound cultures have been negative. She underwent debridement per wound care on 12/26. No wound vac or further procedures recommended at this time per Ortho and Wound Care Provider. Remains afebrile and improved clinically. Completed full course of antibiotics with Dapto and Aztreonam. No further abx needed at discharge. (8) CAD (coronary artery disease): h/o BMS in 2008 -Continue metoprolol succinate. Restarted Plavix. Holding statin while receiving dapto , which was restarted at discharge. (9) PVD (peripheral vascular disease): History of multiple vascular interventions including carotid endarterectomy, aortofemoral bypass and femoral-popliteal bypass surgeries Plavix initially held in setting of wound debridement and thrombocytopenia. Platelets are within normal limits and there have been no procedures in 3 days. Will restart Plavix now. Statin restarted at discharge, also. At time of discharge she was afebrile and hemodynamically stable. She was mentating and ambulating at baseline and tolerating PO. Physical therapy performed a final evaluation on day of discharge and cleared her for home. Her brother and I spoke by phone and I explained the care plan and answered all questions. 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 Total Time Total Time Spent Total Time Spent (In Minutes): 60 Total Time Includes: Examination of the Patient, Discharge Planning, Medication Reconciliation and Communication With Other Providers Discharge Plan Discharge Items Patient Disposition: Home - Home Health Services Reason For Visit: SYMPTOMATIC ANEMIA,?GI BLEED,SIRS CRITERIA Discharge Diagnosis: Chronic hypoxemic respiratory failure 2/2 COPD Traumatic open wound of RLE with superficial infection Sepsis 07/08/ above-resolved. Iron deficiency anemia Acute worsening of stage IV chronic kidney disease Activity: Resume your previous activity Non-emergency contact: Primary Care Provider Call non-emergency contact if: you have any medication questions, your symptoms worsen, your pain is not controlled and you have a fever Follow-up/Referrals: Dong Baumann MD [Primary Care Provider] - 01/04/20 11:30 am Diet: Carb Consistent or DM2 and Low Potassium (2gm) Addtl Attending Provider Instructions: Please take all medications as instructed on discharge list below. You were found to have an elevated potassium while here in the hospital. You were also placed on a new medication for blood pressure control which may affect your potassium levels and/or your kidney function. It is recommended that you have nonfasting bloodwork (BMP and CBC) within one to two weeks to recheck these levels. This may be ordered by your primary care physician (PCP). You were placed on iron supplementation for iron deficiency anemia, which should be monitored closely with your PCP as further investigation into the cause of this may be needed in the future. Please follow-up with your PCP at the time/date listed above. Additionally the [facility] will be reaching out to you to set up a follow-up appointment with them later this week. It was a pleasure taking care of you! Please call if you have any questions or problems. You can reach a [facility] hospitalist on duty at [facility] 24 hours a day by calling [phone]. Take care of yourself. Joy Mcelroy DO [facility] Hospitalist Pending Studies at Discharge: No Stand-Alone Forms: My [facility], Smoking Cessation Medications and DC Order Prescriptions: New ferrous sulfate 325 mg (65 mg iron) Tablet,Delayed Release (Dr/Ec) 325 mg PO QAM Qty: 30 RF: 1 hydrochlorothiazide 25 mg Tablet 25 mg PO QAM Qty: 30 RF: 1 Continued ipratropium-albuterol 0.5 mg-3 mg(2.5 mg base)/3 mL solution for nebulization 3 ml INHALATION Q4H PRN (Reason: Shortness Of Breath) RF: 0 metoprolol succinate 100 mg tablet extended release 24 hr 100 mg PO DAILY RF: 0 clopidogrel 75 mg tablet 75 mg PO DAILY RF: 0 albuterol sulfate [Ventolin HFA] 90 mcg/actuation HFA aerosol inhaler 2 puff INHALATION Q6H PRN (Reason: Shortness Of Breath) RF: 0 glipizide 5 mg tablet 5 mg PO DAILY RF: 0 mirtazapine 7.5 mg tablet 7.5 mg PO HS RF: 0 budesonide-formoterol [Symbicort] 160-4.5 mcg/actuation HFA aerosol inhaler 2 puff INHALATION BID RF: 0 Tradjenta 5 mg tablet 5 mg PO DAILY RF: 0 pantoprazole 20 mg Tablet,Delayed Release (Dr/Ec) 20 mg PO DAILY RF: 0 atorvastatin 80 mg tablet 80 mg PO DAILY RF: 0 Combivent Respimat 20-100 mcg/actuation mist 1 puff INHALATION QID RF: 0 prednisone 20 mg tablet 20 mg PO DIRECTED RF: 0 Discontinued levofloxacin 250 mg tablet 250 mg PO DAILY RF: 0 Discharge Orders: Discharge Order (Routine); Ordered 12/31/19 Ordered By: Joy Mcelroy Admission Data Admit Date/Time: 12/25/19 11:29 Attending Provider: Joy Mcelroy Admit Provider: Beto Michaud Primary Care Provider: Dong Baumann Other Providers: Steve Baron ; Velasquez Finch ; Leoncio Giron Other Interventions: Discharge Summary Assessment (RN) Last Done: 12/31/19 16:28 DC Date/Time DO NOT enter until pt leaves facility: 12/31/19 16:54
== END 2019-12-31 16:54 | disposition home health service (06) | DRG 872 ==
LOC: ED 09:22 → 2E 09:22 → SUATTDRO 11:29 → OBSVTOIN 11:55 → 2E 12:26 → 2N 12-27 06:35

== ENCOUNTER 2019-12-31 22:18 | Inpatient (IN) ==
[2019-12-31] MEDS ORDERED: SODIUM CHLORIDE 0.9% 500 ML IV ONE (22:52)
[2019-12-31 23:31] LABS: Hematocrit (blood only) 27.5 % (37-47); Hemoglobin 9.3 g/dL (12.0-16.0); Mean Corpuscular Hemoglobin 32.2 pg (25-34); Mean Corpuscular Hgb Conc 33.8 g/dL (32-36); Mean Corpuscular Volume 95.2 fL (80-100); Mean Platelet Volume 10.3 fL (7.4-10.4); Platelet Count 180 K/uL (130-400); RDW Coefficient of Variation 14.8 % (11.5-14.5); RDW Standard Deviation 50.7 fL (36.4-46.3); Red Blood Count 2.89 M/uL (4.2-5.4); White Blood Count 9.35 K/uL (4.8-10.8)
[2019-12-31 23:42] LABS: INR 1.1 (0.9-1.1); Partial Thromboplastin Ratio 0.9; Partial Thromboplastin Time 26.5 Seconds (21.0-31.0); Prothrombin Time 11.5 Seconds (9.0-12.0)
[2019-12-31 23:43] LABS: Appearance Urine Clear (Clear); Bacteria Urine Automated Negative (Negative); Bilirubin Urine Negative (Negative); Blood Urine 1+ (Negative); Cast Urine Automated 0 /lpf (0-5); Color Urine Yellow; Glucose Urine UA Negative (Negative); Ketones Urine Negative (Negative); Leukocyte Esterase Urine Negative (Negative); Nitrite Urine Negative (Negative); Protein Urine 2+ (Negative); RBC Urine Automated 0-4 /hpf (0-4); Specific Gravity Urine 1.008 (1.000-1.030); Urobilinogen Urine Negative (Negative); pH Urine 6.5 (4.5-7.5)
[2019-12-31 23:46] LABS: Base Excess VBG 1.3 mEq/L; HCO3 VBG 27 mmol/L; Oxygen Saturation VBG 87.1 %; PCO2 VBG 48 mmHg (38-50); PO2 VBG 58 mmHg; pH VBG 7.37 (7.36-7.41)
[2019-12-31 23:52] LABS: Basophils # (auto) 0.01 K/uL (0-0.2); Basophils % (auto) 0.1 %; Eosinophils # (auto) 0.24 K/uL (0-0.5); Eosinophils % (auto) 2.6 %; Immature Granulocytes # (auto) 0.02 K/uL (0.00-0.02); Immature Granulocytes % (auto) 0.2 %; Lymphocytes # (auto) 1.11 K/uL (1.2-3.4); Lymphocytes % (auto) 11.9 %; Monocytes # (auto) 0.45 K/uL (0.11-0.59); Monocytes % (auto) 4.8 %; Neutrophils # (auto) 7.52 K/uL (1.4-6.5); Neutrophils % (auto) 80.4 %; RBC Morphology Unremarkable
[2019-12-31 23:57] LABS: Albumin Level 1.9 gm/dl (3.4-5.0); BUN Creatinine Ratio 43.8 (10-20); Bilirubin Direct 0.1 mg/dl (0-0.2); Calcium 9.4 mg/dl (8.5-10.1); Creatinine Clr Calc Pharmacy 24.3 ml/min; Est GFR (African American) 46.7; Est GFR (Non-African American) 40.3; Potassium 4.3 mmol/L (3.5-5.1)
[2020-01-01 00:06] LABS: Albumin Globulin Ratio 0.6 (0.9-2); Bilirubin,Total 0.3 mg/dl (0.2-1); Globulin 2.9 gm/dl (2.5-4.0); Phosphorus 3.2 mg/dl (2.5-4.9); Thyroid Stimulating Hormone 2.08 uIu/ml (0.300-4.500); Total Protein 4.8 gm/dl (6.4-8.2); Troponin I 0.017 ng/ml (0-0.045)
[2020-01-01] MEDS ORDERED: ALBUT/IPRATROP 3MG/0.5MG NEB 3 ML VIAL NEB STA (00:40)
--- NOTE | 2020-01-01 01:07 | Emergency Department Note ---
Impression & Plan Generalized muscle weakness, COPD, severe, Chronic hypoxemic respiratory failure ED Provider Note NAME: RUBEN SHAIKH AGE: 79 SEX: F ARRIVES VIA: Ambulance INFORMANT: Patient, ED PROVIDER(S): Vasyl Tavares MD CHIEF COMPLAINT: Fall, generalized weakness. PLAN: Disposition: Admit MEDICAL DECISION MAKING: The patient is a pleasant 79-year-old woman with a past medical history of COPD/chronic respiratory failure on home oxygen, CKD, CAD, PAD, hypertension who presents emergency department with generalized weakness and fall where her legs gave out from under her today despite using her walker and then she was unable to get up from the toilet in the bathroom requiring her brother to come and help which occurs in the setting of being discharged today after an admission for sepsis related to a right superficial infection, symptomatic iron deficiency anemia, acute on chronic renal failure in addition to management of the patient's chronic hypoxemic respiratory failure. On arrival the patient is fatigued with stable vital signs. She appears cachectic and clinically dry despite having scant bilateral lower extremity edema. She has diminished breath sounds throughout. She does become easily dyspneic with exertion. EKG without overt acute ischemia. Chest x-ray without acute cardiopulmonary process per my preliminary review. X-ray of pelvis without acute fractures per my preliminary review. WBC within normal limits. H/H 9.3/27.5 similar to prior range of values. Platelets within normal limits. VBG unremarkable. Chemistry without acidosis. Creatinine 1.25 improved from values on last admission. Electrolytes unremarkable. LFTs slightly elevated with AST, ALT and alk phos 71, 108, and 270, respectively but nonspecific. Bilirubin within normal limits. Troponin within normal limits at 0.017. BNP 7600 unclear significance in the setting of the patient's CKD without recent values for comparison. UA without convincing infection. CT of the head negative for acute process. Patient is agreeable with plan for admission. Case was discussed with Dr. Pascual, [facility] hospitalist, who will evaluate the patient for admission. Triage Nursing notes reviewed and agree them. Prior medical records reviewed Vital Signs: reviewed and remarkable for no significant abnormalities Differential diagnosis: Infection, dehydration, metabolic abnormality, hypo/hyperglycemia, electrolyte disturbance, anemia, hypoxia, cardiac sources, intracerebral event, toxicologic, neurologic, as well as other pathologies. ER treatment provided: See below. Diagnostics interpreted by me: ECG: Sinus tachycardia, 101 bpm, no ectopy, nonspecific T wave abnormality, no overt ST elevation or depression, QTC 427, QRS 94. Cardiac Monitoring: An order for continuous cardiac monitoring was placed and demonstrated sinus tachycardia, 101 bpm, no ectopy. Laboratory studies: See below Imaging studies: XR Pelvis: No acute fractures. CXR: No acute cardio-pulmonary process. Preliminary Findings Only See Final Report For Complete Findings CT HEAD: Comparison to December 12, 2019. The paranasal sinuses and mastoid air cells are normally aerated. There is no skull fracture or scalp hematoma. There is a normal gyral pattern of the brain. There is no mass lesion or midline shift. The lewis-white matter differentiation is maintained. There is mild periventricular white matter low density bilaterally consistent with chronic small vessel disease. There are old lacunar infarcts in the left thalamus measuring 4 mm in left subinsular region measuring 6 mm. Probable old infarct in the left frontal lobe deep white matter. No significant change. There is no evidence of acute large vessel infarct or intracranial hemorrhage. Radiologist: Armando Costa MD Study ready at 00:02 and initial results transmitted at 00:19 Consultation(s): Case was discussed with Dr. Pascual, [facility] hospitalist, who will evaluate the patient for admission. HPI: The patient is a pleasant 79-year-old woman with a past medical history of COPD/chronic respiratory failure on home oxygen, CKD, CAD, PAD, hypertension who presents emergency department with generalized weakness and fall where her legs gave out from under her today despite using her walker and then she was unable to get up from the toilet in the bathroom requiring her brother to come and help which occurs in the setting of being discharged today after an admission for sepsis related to a right superficial infection, symptomatic iron deficiency anemia, acute on chronic renal failure in addition to management of the patient's chronic hypoxemic respiratory failure. She reports generalized weakness and increased SOB from baseline. Denies CP, n/v/d, urinary sx. ROS: See above HPI for pertinent positives & negatives. A total of 10 systems reviewed and were otherwise negative. PAST MEDICAL HISTORY:See Below PAST SURGICAL HISTORY:See Below FAMILY HISTORY:See Below SOCIAL HISTORY:See Below HOME MEDICATIONS:See Below ALLERGIES:See Below VITALS:See Below PHYSICAL EXAMINATION: GENERAL: Awake, alert, fatigued/chronically ill-appearing, in no distress HENT: Normocephalic, atraumatic. Oropharynx with dry mucous membranes and otherwise unremarkable. EYES: Normal conjunctiva. Sclera non-icteric. NECK: Supple. No nuchal rigidity. FROM. No JVD. RESPIRATORY: Diminished throughout. CARDIAC: Tachycardic rate, normal rhythm. Extremities warm and well perfused. Pulses equal. ABDOMEN: Soft, non-distended. No tenderness to palpation. No rebound or guardi ng. No masses. RECTAL: Deferred. MUSCULOSKELETAL: Chest examination reveals no tenderness. The back is symmetrical on inspection without obvious abnormality. There is no CVA tenderness to palpation. No joint edema. LOWER EXTREMITIES: Calves are equal size bilaterally and non-tender. Scant BLE edema. NEURO: Normal sensorium. No sensory or motor deficits noted. Generalized weakness with 4/5 strength x 4 ext. SKIN: No jaundice noted. Right lower leg pretibial wound, right elbow with dressing c/d/i. Bilatearl forearms with mild erythema without significant warmth or tenderness (patient reports has been unchanged since her admission) Vasyl Tavares MD Past Med/Surg History Medical History CAD (coronary artery disease) (Chronic) "NSTEMI 01/2009 - BMS to distal left circumflex, cath at that time showed 100% proximal RCA occlusion" CKD (chronic kidney disease), stage IV (Chronic) COPD, severe (Chronic) "oxygen requiring" DM type 2 (diabetes mellitus, type 2) (Chronic) Dyslipidemia (Chronic) Femoral artery aneurysm, right (Chronic) "s/p repair" GERD (gastroesophageal reflux disease) (Chronic) HTN (hypertension) Hypercalcemia Iron deficiency anemia Ischemic cardiomyopathy (Chronic) "echo 04/2015- EF 50-55%, grade I diastolic dysfunction" On 05/02/15 18:17 Adele Mathur wrote "echo 2010 - EF 45-50%, grade I diastolic dysfunction" Nocturnal hypoxemia PVD (peripheral vascular disease) (Chronic) Surgical History H/O aorto-femoral bypass (Chronic) History of hysterectomy (Chronic) Hx of appendectomy (Chronic) Hx of cataract surgery (Chronic) S/P carotid endarterectomy (Chronic) "left in 2001, left carotid stent placed 2002" S/P femoral-popliteal bypass surgery (Chronic) Family History Other Heart disease Denies family history of Diabetes COPD (chronic obstructive pulmonary disease) Social History Smoking Status: Former smoker Hx Alcohol Use: No Hx Substance Use: No Preferred Language: Yakut Communication Ability: Effective Log Scaler Required: No Beliefs That Will Affect Care: None marital status: / Current Living Situation: Alone Feels Safe at Home: Yes Allergies Allergies Allergy/AdvReac Type Severity Reaction Status Date / Time codeine Allergy Mild Unknown Verified 12/31/19 22:55 amoxicillin Allergy Unknown unknown Verified 12/31/19 22:55 aspirin Allergy Unknown UNKNOWN Verified 12/31/19 22:55 bacitracin Allergy Unknown Rash Verified 12/31/19 22:55 isosorbide Allergy Unknown unknown Verified 12/31/19 22:55 neomycin Allergy Unknown Rash Verified 12/31/19 22:55 polymyxin B Allergy Unknown Rash Verified 12/31/19 22:55 Home Meds Home Medications Medication Instructions Recorded Confirmed Combivent Respimat 1 puff INHALATION QID 05/01/19 12/31/19 Tradjenta 5 mg PO DAILY 05/01/19 12/31/19 albuterol sulfate [Ventolin HFA] 2 puff INHALATION Q6H PRN 05/01/19 12/31/19 atorvastatin 80 mg PO DAILY 05/01/19 12/31/19 budesonide-formoterol [Symbicort] 2 puff INHALATION BID 05/01/19 12/31/19 clopidogrel 75 mg PO DAILY 05/01/19 12/31/19 glipizide 5 mg PO DAILY 05/01/19 12/31/19 ipratropium-albuterol 3 ml INHALATION Q4H PRN 05/01/19 12/31/19 metoprolol succinate 100 mg PO DAILY 05/01/19 12/31/19 mirtazapine 7.5 mg PO HS 05/01/19 12/31/19 pantoprazole 20 mg PO DAILY 05/01/19 12/31/19 prednisone 20 mg PO DIRECTED 12/25/19 12/31/19 Previous Rx's Medication Instructions Recorded ferrous sulfate 325 mg PO QAM #30 tab 12/31/19 hydrochlorothiazide 25 mg PO QAM #30 tab 12/31/19 Results & Data (ED) Vital Signs Vital Signs - 24 hr 12/31/19 22:30 12/31/19 22:39 12/31/19 22:52 Temperature 36.8 C Temperature Source Oral Pulse Rate 100 H Pulse Rate from SpO2 Sensor 100 H Respiratory Rate 36 H 22 Blood Pressure 170/71 H 174/70 H Blood Pressure Mean 119 104 Pulse Oximetry 98 99 Oxygen Delivery Method Nasal Cannula Nasal Cannula Oxygen Flow Rate 4 2 Sepsis Recent Fever Within 48 Hours No Sepsis New/Unexplained Change in Mental Status No Sepsis Action Taken by Nursing No Action Required 12/31/19 23:00 12/31/19 23:14 12/31/19 23:21 Temperature Temperature Source Pulse Rate 101 H 102 H Pulse Rate from SpO2 Sensor 102 H 103 H Respiratory Rate 37 H 46 H Blood Pressure 163/70 H 153/65 H Blood Pressure Mean 103 116 Pulse Oximetry 94 98 98 Oxygen Delivery Method Nasal Cannula Nasal Cannula Nasal Cannula Oxygen Flow Rate 2 2 2 Sepsis Recent Fever Within 48 Hours Sepsis New/Unexplained Change in Mental Status Sepsis Action Taken by Nursing 12/31/19 23:30 01/01/20 00:00 01/01/20 00:30 Temperature Temperature Source Pulse Rate 102 H 101 H 99 H Pulse Rate from SpO2 Sensor 101 H 101 H 98 H Respiratory Rate 43 H 34 H 34 H Blood Pressure 167/73 H 151/64 H 156/85 H Blood Pressure Mean 126 92 119 Pulse Oximetry 97 94 97 Oxygen Delivery Method Nasal Cannula Nasal Cannula Nasal Cannula Oxygen Flow Rate 2 2 2 Sepsis Recent Fever Within 48 Hours Sepsis New/Unexplained Change in Mental Status Sepsis Action Taken by Nursing 01/01/20 01:00 01/01/20 01:30 Temperature Temperature Source Pulse Rate 100 H 95 H Pulse Rate from SpO2 Sensor 100 H 95 H Respiratory Rate 26 H 37 H Blood Pressure 157/69 H 155/61 H Blood Pressure Mean 103 94 Pulse Oximetry 97 99 Oxygen Delivery Method Nasal Cannula Nasal Cannula Oxygen Flow Rate 2 2 Sepsis Recent Fever Within 48 Hours Sepsis New/Unexplained Change in Mental Status Sepsis Action Taken by Nursing Laboratory Data Attestation: I reviewed the patient's lab results. Result diagrams: 12/31/19 23:17 07/27/20 23:17 Lab Results 12/31/19 12/31/19 12/31/19 Range/Units 23:14 23:17 23:17 WBC 9.35 (4.8-10.8) K/uL RBC 2.89 L (4.2-5.4) M/uL Hgb 9.3 L (12.0-16.0) g/dL Hct 27.5 L (37-47) % MCV 95.2 (80-100) fL MCH 32.2 (25-34) pg MCHC 33.8 (32-36) g/dL RDW Std Deviation 50.7 H (36.4-46.3) fL RDW Coeff of Leslie 14.8 H (11.5-14.5) % Plt Count 180 (130-400) K/uL MPV 10.3 (7.4-10.4) fL Immature Gran % (Auto) 0.2 % Neut % (Auto) 80.4 % Lymph % (Auto) 11.9 % [place] % (Auto) 4.8 % Eos % (Auto) 2.6 % Baso % (Auto) 0.1 % Neut # (Auto) 7.52 H (1.4-6.5) K/uL Lymph # (Auto) 1.11 L (1.2-3.4) K/uL Hamb[place] # (Auto) 0.45 (0.11-0.59) K/uL Eos # (Auto) 0.24 (0-0.5) K/uL Baso # (Auto) 0.01 (0-0.2) K/uL Immature Gran # (Auto) 0.02 (0.00-0.02) K/uL RBC Morphology Unremarkable PT 11.5 (9.0-12.0) Seconds INR 1.1 (0.9-1.1) APTT 26.5 (21.0-31.0) Seconds PTT Ratio 0.9 VBG pH (7.36-7.41) VBG pCO2 (38-50) mmHg VBG pO2 mmHg VBG HCO3 mmol/L VBG O2 Saturation % VBG Base Excess mEq/L Sodium (136-145) mmol/L Potassium (3.5-5.1) mmol/L Chloride (98-107) mmol/L Carbon Dioxide (21-32) mmol/L Anion Gap (3-11) BUN (7-18) mg/dl Creatinine (0.6-1.2) mg/dl Est Cr Clr Drug Dosing ml/min Est GFR ( Amer) Est GFR (Non-Af Amer) BUN/Creatinine Ratio (10-20) Glucose (70-99) mg/dl Calcium (8.5-10.1) mg/dl Phosphorus (2.5-4.9) mg/dl Magnesium (1.8-2.4) mg/dl Total Bilirubin (0.2-1) mg/dl Direct Bilirubin (0-0.2) mg/dl AST (15-37) U/L ALT (12-78) U/L Alkaline Phosphatase (45-117) U/L Troponin I (0-0.045) ng/ml NT-Pro-B Natriuret Pep (0-1800) pg/ml Total Protein (6.4-8.2) gm/dl Albumin (3.4-5.0) gm/dl Globulin (2.5-4.0) gm/dl Albumin/Globulin Ratio (0.9-2) Lipase (73-393) U/L TSH (0.300-4.500) uIu/ml Urine Color Yellow Urine Appearance Clear (Clear) Urine pH 6.5 (4.5-7.5) Ur Specific [place] 1.008 (1.000-1.030) Urine Protein 2+ H (Negative) Urine Glucose (UA) Negative (Negative) Urine Ketones Negative (Negative) Urine Blood 1+ H (Negative) Urine Nitrite Negative (Negative) Urine Bilirubin Negative (Negative) Urine Urobilinogen Negative (Negative) Ur Leukocyte Esterase Negative (Negative) Urine WBC (Auto) 1-5 (0-5) /hpf Urine RBC (Auto) 0-4 (0-4) /hpf U Hyaline Cast (Auto) 0 (0-5) /lpf U Epithel Cells (Auto) 10-20 H (0-5) /lpf Urine Bacteria (Auto) Negative (Negative) 12/31/19 12/31/19 Range/Units 23:17 23:21 WBC (4.8-10.8) K/uL RBC (4.2-5.4) M/uL Hgb (12.0-16.0) g/dL Hct (37-47) % MCV (80-100) fL MCH (25-34) pg MCHC (32-36) g/dL RDW Std Deviation (36.4-46.3) fL RDW Coeff of Leslie (11.5-14.5) % Plt Count (130-400) K/uL MPV (7.4-10.4) fL Immature Gran % (Auto) % Neut % (Auto) % Lymph % (Auto) % Hamb[place] % (Auto) % Eos % (Auto) % Baso % (Auto) % Neut # (Auto) (1.4-6.5) K/uL Lymph # (Auto) (1.2-3.4) K/uL Hamb[place] # (Auto) (0.11-0.59) K/uL Eos # (Auto) (0-0.5) K/uL Baso # (Auto) (0-0.2) K/uL Immature Gran # (Auto) (0.00-0.02) K/uL RBC Morphology PT (9.0-12.0) Seconds INR (0.9-1.1) APTT (21.0-31.0) Seconds PTT Ratio VBG pH 7.37 (7.36-7.41) VBG pCO2 48 (38-50) mmHg VBG pO2 58 mmHg VBG HCO3 27 mmol/L VBG O2 Saturation 87.1 % VBG Base Excess 1.3 mEq/L Sodium 140 (136-145) mmol/L Potassium 4.3 (3.5-5.1) mmol/L Chloride 108 H (98-107) mmol/L Carbon Dioxide 27 (21-32) mmol/L Anion Gap 5.0 (3-11) BUN 55 H (7-18) mg/dl Creatinine 1.25 H (0.6-1.2) mg/dl Est Cr Clr Drug Dosing 24.3 ml/min Est GFR ( Amer) 46.7 Est GFR (Non-Af Amer) 40.3 BUN/Creatinine Ratio 43.8 H (10-20) Glucose 103 H (70-99) mg/dl Calcium 9.4 (8.5-10.1) mg/dl Phosphorus 3.2 (2.5-4.9) mg/dl Magnesium 2.0 (1.8-2.4) mg/dl Total Bilirubin 0.3 (0.2-1) mg/dl Direct Bilirubin 0.1 (0-0.2) mg/dl AST 71 H (15-37) U/L ALT 108 H (12-78) U/L Alkaline Phosphatase 270 H (45-117) U/L Troponin I 0.017 (0-0.045) ng/ml NT-Pro-B Natriuret Pep 7604 H (0-1800) pg/ml Total Protein 4.8 L (6.4-8.2) gm/dl Albumin 1.9 L (3.4-5.0) gm/dl Globulin 2.9 (2.5-4.0) gm/dl Albumin/Globulin Ratio 0.6 L (0.9-2) Lipase 225 (73-393) U/L TSH 2.080 (0.300-4.500) uIu/ml Urine Color Urine Appearance (Clear) Urine pH (4.5-7.5) Ur Specific [place] (1.000-1.030) Urine Protein (Negative) Urine Glucose (UA) (Negative) Urine Ketones (Negative) Urine Blood (Negative) Urine Nitrite (Negative) Urine Bilirubin (Negative) Urine Urobilinogen (Negative) Ur Leukocyte Esterase (Negative) Urine WBC (Auto) (0-5) /hpf Urine RBC (Auto) (0-4) /hpf U Hyaline Cast (Auto) (0-5) /lpf U Epithel Cells (Auto) (0-5) /lpf Urine Bacteria (Auto) (Negative) Administered Medications Discontinued Medications Albuterol (Duoneb) 3 ml NEB NOW STA Stop: 01/01/20 00:41 Last Admin: 01/01/20 01:34 Dose: 3 ml Documented by: [id number] Sodium Chloride (Nss) 500 mls @ 999 mls/hr IV .Q31M ONE Stop: 12/31/19 23:22 Last Infusion: 12/31/19 23:52 Dose: 0 mls/hr Documented by: [id number] Admin: 12/31/19 23:21 Dose: 999 mls/hr Documented by: [id number] Blood Pressure Blood Pressure Findings: Elevated blood pressure Blood Pressure Disposition: further management by hospitalist Discharge Plan Visit Data Chief Complaint: Shortness of Breath/Dyspnea Stated Complaint: FALL, SOB, WEAKNESS ED Provider: Vasyl Tavares Discharge Problem: Generalized muscle weakness, COPD, severe, Chronic hypoxemic respiratory failure Patient Disposition: Admitted As Inpatient Discharge Instructions Interventions: ED Discharge Assessment Last Done: 01/01/20 02:38
[2020-01-01] MEDS ORDERED: ACETAMINOPHEN 325 MG TAB PO PRN (03:14)
[2020-01-01] MEDS ORDERED: ALBUTEROL HFA 8 GM INHALER INH PRN (03:14)
[2020-01-01] MEDS ORDERED: predniSONE 20 MG TAB PO SCH (03:14)
[2020-01-01] MEDS ORDERED: POLYETHYLENE (MIRALAX) 17 GM PACK PO PRN (03:14)
[2020-01-01] MEDS ORDERED: NITROGLYCERIN SL 0.4 MG/TAB TAB SL PRN (03:14)
[2020-01-01] MEDS ORDERED: GLUCOSE 40% GEL 15 GM TUBE PO PRN (03:45)
[2020-01-01] MEDS ORDERED: GLUCAGON FOR INJ 1 MG VIAL IM PRN (03:45)
[2020-01-01] MEDS ORDERED: GLUCOSE 10 TABS/TUBE PO PRN (03:45)
[2020-01-01] MEDS ORDERED: DEXTROSE 50% 50 ML SYRINGE IV PRN (03:45)
--- NOTE | 2020-01-01 04:53 | History and Physical Report ---
DATE OF ADMISSION: 01/01/2020 CHIEF COMPLAINT: Falls and shortness of breath. HISTORY OF PRESENT ILLNESS: This is an 79-year-old female with past medical history significant for chronic kidney disease stage IV, type 2 diabetes, CAD status post bare metal stent in 2008, hypertension, COPD requiring oxygen while sleeping and sometimes while ambulating, history of systolic CHF, carotid stenosis, history of diverticulitis, who was here recently for hypoxia from COPD and symptomatic anemia and acute on chronic kidney disease stage IV and sepsis, right lower extremity wound, treated with antibiotics and did fine and got discharged home today. Comes back with falls and shortness of breath. The patient says she was trying to go to the couch and she fell down and she got up. After sometime, she tried to go to bathroom and she could not get up from the commode when she pressed the alert button. Her brother also who lives close by as she was not answering the phone call, he came with his and she was brought into the hospital. When she came in, she was short of breath, but now she is back to her baseline. She is saturating fine in high 90s on 2 liters and no longer tachycardic and she is speaking in full sentences and able to give her history. Somewhat hard of hearing. Mainly complains of weakness and falls. She also has some sores in her mouth. She says she is having a hard time eating because of sores in her mouth. Denies any headache. Vision is okay. No runny nose, no sore throat, no cough, no chest pain, no nausea, no abdominal pain. Says her bowels are moving fine. Normal bladder movements. Has some edema in the lower extremities with wound in the right ashby region. No fevers. ALLERGIES: CODEINE, AMOXICILLIN, ASPIRIN, BACITRACIN, ISOSORBIDE, NEOMYCIN, POLYMYXIN B. PAST MEDICAL HISTORY: As mentioned above. PAST SURGICAL HISTORY: Aortofemoral bypass graft in 2001, left heart catheterization, exploration of left carotid endarterectomy, right femoral artery aneurysm repair with graft, injection with right laser trabeculoplasty, left carotid stent placement at [place], appendectomy, total abdominal hysterectomy with removal of tubes. MEDICATIONS: Currently, the patient is on albuterol 2 puffs inhalation q. 6 hours p.r.n., atorvastatin 80 mg p.o. daily, Symbicort 2 puffs inhalation b.i.d., Plavix 75 mg p.o. daily, Combivent 1 puff inhalation q.i.d., ferrous sulfate 325 mg p.o. a.m., glipizide 5 mg p.o. daily, hydrochlorothiazide 25 mg p.o. a.m., DuoNebs every 4 hours p.r.n., metoprolol succinate 100 mg p.o. daily, mirtazapine 7.5 mg p.o. at bedtime, Protonix 20 mg p.o. daily, prednisone as directed, Tradjenta 5 mg p.o. daily. FAMILY HISTORY: Significant for father had heart disorder. SOCIAL HISTORY: , lives alone. Former smoker, quit in 2000, smoked half pack a day for 40 years. No alcohol use, no drug use. REVIEW OF SYSTEMS: As per HPI. Rest of the review of systems are negative. PHYSICAL EXAMINATION: GENERAL: The patient is old and frail, not in acute distress. VITAL SIGNS: Currently temperature 36.8, pulse 75, respiratory rate 18, blood pressure 157/69, oxygen 98% on 2 liters. HEENT: No pallor, no icterus. Pupils equal, round, and reactive to light. Oral mucosa, lips have some sores and sores in the mouth seen. NECK: No neck masses. Supple. CARDIOVASCULAR: S1, S2 heard, regular rate and rhythm, no murmur, no gallop. RESPIRATORY SYSTEM: Normal AP diameter. No accessory muscle use. No wheezing, no crackles. ABDOMEN: Soft, bowel sounds present. Nontender, no distention. CENTRAL NERVOUS SYSTEM: Alert and oriented. Obeys commands. Moves extremities. Nonfocal. EXTREMITIES: Right lower extremity ashby wound is draining and lower extremity edema present. SKIN: Dry peeling skin seen. LABORATORY DATA: WBC 9.3, hemoglobin 9.3, hematocrit 27.5, platelets 180. PT 11.5, INR 1.1, APTT 26.5. Venous blood gas, pH of 7.3, pCO2 of 48, pO2 of 58, bicarbonate 27. Sodium 140, potassium 4.3, chloride 108, bicarbonate 27, BUN 55, creatinine 1.25, serum glucose 103, calcium 9.4, phosphorus 3.2, magnesium 2, total bilirubin 0.3, direct bilirubin 0.1, AST 71, ALT 108, alkaline phosphatase 270. Troponin I of 0.01. BNP 7600. Lipase 225. TSH 2.08. Urinalysis negative. IMAGING DATA: Chest x-ray, no acute findings seen. CT of the head, no acute findings. EKG: Sinus tachycardia at the rate of 101, nonspecific T-wave abnormality seen. ASSESSMENT AND PLAN: This is an 79-year-old female who was recently in the hospital, got discharged today. Comes back with falls and shortness of breath and the shortness of breath is currently resolved. 1. Falls, ambulatory dysfunction, most likely the patient has deconditioning. Admit to the hospital. PT and OT and social service to help with discharge planning. 2. Shortness of breath that got resolved now. The patient has history of chronic obstructive pulmonary disease. No obvious wheezing heard. Uses oxygen at nighttime and also in daytime when needed. Continue her home nebs and inhalers. 3. Anemia of chronic kidney disease, currently hemoglobin 9.8. Last admission, received some blood transfusion, on iron pills too, which she will continue. 4. Chronic kidney disease stage IV. Seems to be stable currently. Follow the labs. 5. Type 2 diabetes. Hold home p.o. medications. Placed on insulin sliding scale. Follow the blood sugars. Recent HbA1c was 6.1. 6. Right lower extremity wound. Recently treated with antibiotics, but seems to be draining. Wound care consulted. May need to consult ortho again. 7. History of coronary artery disease status post bare metal stent in 2008, on Toprol-XL, on Plavix and statin.Stable. 8. peripheral vascular disease, history of aortofemoral bypass and femoral popliteal bypass surgeries and carotid endarterectomy, on Plavix and statin. 9. Mild elevation of transaminitis.Follow up repeat labs. 10. Deep venous thrombosis prophylaxis, placed on heparin subQ. DISPOSITION: Admit to med tele. PT and OT prior to discharge. Social service to help with discharge planning. CODE STATUS: Full code. MTDD
--- NOTE | 2020-01-01 06:25 | XRay Report ---
XR pelvis 1-2V routine CLINICAL HISTORY: fall pain trauma. Pain. COMPARISON: None. DISCUSSION: General degenerative change of the hips bilaterally. No well-defined acute bony abnormali ty. Bilateral calcific trochanteric bursitis. Postoperative surgical clips in the right inguinal iveth on . IMPRESSION: Degenerative change. No acute process. ACT 112: Negative or not required by law. The above report was generated using voice recognition software. It may contain grammatical, syntax or spelling errors. Electronically signed by: Julio Cesar Valdivia M.D. 01/01/2020 6:23 AM
--- NOTE | 2020-01-01 06:31 | XRay Report ---
XR chest 1V portable CLINICAL HISTORY: Chest Pain dyspnea COMPARISON STUDY: 12/25/2019 FINDINGS: Interval development of a small left pleural effusion. Trace pleural fluid right base. Mild prominence of pulmonary vasculature. IMPRESSION: Interval development of a left and to a lesser extent minimal right pleural effusion. ACT 112: Negative or not required by law. The above report was generated using voice recognition software. It may contain grammatical, syntax or spelling errors. Electronically signed by: Julio Cesar Valdivia M.D. 01/01/2020 6:30 AM
--- NOTE | 2020-01-01 06:53 | CT Scan Report ---
CT OF THE HEAD WITHOUT CONTRAST CLINICAL HISTORY: fall, weakness COMPARISON STUDY: Head CT December 12, 2019. CT DOSE: 638.56 mGycm TECHNIQUE: Helical axial images of the head were obtained without IV contrast. Automated exposure con trol was utilized for the study. A dose lowering technique was utilized adhering to the principles o f ALARA. FINDINGS: No acute intracranial hemorrhage, midline shift or mass effect is present. Jugular system i s unremarkable. The basilar cisterns are patent. There are no extra-axial collections. Old left basal ganglia infarct is noted. White matter hypodensity suggests small vessel disease. There are no findi ngs to suggest acute dural sinus thrombosis or acute territorial infarct. A peripherally calcified fo cus within the midline of the posterior fossa is chronic and of doubtful significance. This is likely unchanged since MRI July 25, 2006. A lucency within the anterior arch of C1 is chronic. There is no acute calvarial fracture. IMPRESSION: 1. No acute intracranial findings. No change in appearance of the brain. 2. No calvarial fracture. ACT 112: Negative or not required by law. Electronically signed by: Jean Paul Pagan M.D. 01/01/2020 6:52 AM
[2020-01-01] MEDS: IPRATROPIUM BROMIDE HFA INHALER INH SCH ×4 (06:59→20:02)
[2020-01-01] MEDS: ALBUTEROL HFA 8 GM INHALER INH SCH ×4 (06:59→20:02)
[2020-01-01] MEDS ORDERED: FUROSEMIDE 20 MG in SYRINGE 0 ML IV ONE (07:15)
[2020-01-01] MEDS: PANTOprazole 40 MG TAB PO SCH (07:50)
[2020-01-01] MEDS: FERROUS SULFATE 325 MG TAB PO SCH (07:51)
[2020-01-01] MEDS: ATORVASTATIN 40 MG TAB PO SCH (07:51)
[2020-01-01] MEDS: CLOPIDOGREL BISULFATE 75 MG TAB PO SCH (07:51)
[2020-01-01] MEDS: hydroCHLOROthiazide 25 MG TAB PO SCH (07:51)
[2020-01-01] MEDS: METOPROLOL SUCC 50MG EXT REL TAB PO SCH (07:51)
[2020-01-01] MEDS: HEPARIN SOD 5,000 UNIT/0.5 ML VIAL SQ SCH ×2 (07:52→21:20)
[2020-01-01] MEDS: FLUTICASONE/VILANTEROL 100/25MCG 14 PUFFS/INHALER INH SCH (07:52)
[2020-01-01] MEDS: INSULIN ASPART 100 UNITS/ML 3 ML PEN SC SCH ×4 (08:04→21:20)
--- NOTE | 2020-01-01 18:34 | Hospitalist Progress Note ---
Date of Service January 01, 2020 Assessment & Plan (1) Generalized muscle weakness: 2/2 multiple medical issues and deconditioning. PT/OT to evaluate and patient to transfer to SNF when able. (2) Chronic hypoxemic respiratory failure: no changes from baseline oxygen needs. No wheezing present. Cont 2L NC continuously. (3) Traumatic open wound of right lower leg: STable, covered with Aquacel and Optifoam. Followup with wound care in one week. (4) Anemia: Related to chronic disease. Received blood transfusion last admission. H/H appears stable, cont close monitoring. (5) Stage III chronic kidney disease: At baseline. Cont to avoid nephrotoxic substances and renally dose medications as needed. (6) DVT prophylaxis: heparin Full Code Dipso-to SNF. She is medically cleared for discharge when there is a bed available. Transfer off telemetry. DO [facility] Hospitalist Admission and Anticipated Discharge Date Admission Date: January 01, 2020 Subjective Pt is feeling fine today Reports going home and slipped with fall initially Then sat down on toilet and couldn't get up for 1.5 hrs States she had a life alert but forgot to use it Today denies pain, denies leg wound issues. Breathing at baseline. Review of Systems Review of Systems: All systems reviewed & are unremarkable except as noted in Subjective Physical Exam Physical Exam: CONSTITUTIONAL: thin, frail, vitals as above, generally well- appearing EYES: normal conjunctivae, no scleral icterus ENT: external ear and nose normal, oropharynx clear, MMM RESPIRATORY: clear to auscultation bilaterally, no crackles, rales or wheezes, normal respiratory effort CARDIOVASCULAR: regular rate and rhythm, S1 and 2 heard without murmurs, gallops or rubs, no JVD, no peripheral edema GASTROINTESTINAL: soft, nontender, nondistended MUSCULOSKELETAL: strength 5/5 throughout, head is normocephalic and atraumatic. Moves around bed with ease independently. SKIN: warm and dry NEUROLOGIC: CN 2-12 grossly intact, normal cognition, normal speech, no tremor, no gross focal deficits. PSYCHIATRIC: alert cooperative and oriented Results & Data Results & Data ([facility]) Vital Signs (Past 12 Hours) Vital Signs Temp Pulse Pulse Resp BP Pulse Ox 01/01/20 16:54 81 01/01/20 15:24 36.8 C 81 18 138/65 100 01/01/20 15:03 80 18 98 01/01/20 11:47 37 C 93 H 20 146/63 H 97 01/01/20 11:29 78 18 94 01/01/20 08:00 36.8 C 93 H 18 134/73 97 01/01/20 07:37 90 01/01/20 07:00 82 18 97 Laboratory Results Short CBC 12/31/19 Range/Units 23:17 WBC 9.35 (4.8-10.8) K/uL Hgb 9.3 L (12.0-16.0) g/dL Hct 27.5 L (37-47) % Plt Count 180 (130-400) K/uL BMP 12/31/19 23:17 Sodium 140 Potassium 4.3 Chloride 108 H Carbon Dioxide 27 BUN 55 H Creatinine 1.25 H Glucose 103 H Calcium 9.4 Cardiac Enzymes 12/31/19 Range/Units 23:17 Troponin I 0.017 (0-0.045) ng/ml Liver Function 12/31/19 Range/Units 23:17 Total Bilirubin 0.3 (0.2-1) mg/dl Direct Bilirubin 0.1 (0-0.2) mg/dl AST 71 H (15-37) U/L ALT 108 H (12-78) U/L Alkaline Phosphatase 270 H (45-117) U/L Albumin 1.9 L (3.4-5.0) gm/dl Urine 12/31/19 Range/Units 23:14 Urine Color Yellow Urine Appearance Clear (Clear) Urine pH 6.5 (4.5-7.5) Ur Specific [place] 1.008 (1.000-1.030) Urine Protein 2+ H (Negative) Urine Glucose (UA) Negative (Negative) Medications Administered Current Inpatient Medications Acetaminophen (Tylenol) 650 mg PO Q4H PRN PRN Reason: Pain or Fever Stop: 01/31/20 03:13 Albuterol (Ventolin Hfa) 2 puffs INH Q6H PRN PRN Reason: Shortness Of Breath Stop: 01/31/20 03:13 Albuterol (Duoneb) 3 ml INH Q4H PRN PRN Reason: Shortness Of Breath Stop: 01/31/20 03:13 Albuterol (Ventolin Hfa) 1 puffs INH QIDR ANA Stop: 01/31/20 06:59 Last Admin: 01/01/20 15:03 Dose: 1 puffs Documented by: Atorvastatin Calcium (Lipitor) 80 mg PO DAILY [facility] Stop: 01/31/20 08:59 Last Admin: 01/01/20 07:51 Dose: 80 mg Documented by: Clopidogrel Bisulfate (Plavix) 75 mg PO DAILY ANA Stop: 01/31/20 08:59 Last Admin: 01/01/20 07:51 Dose: 75 mg Documented by: Dextrose (Dextrose 50%) 25 - 50 ml IV UD PRN; Protocol PRN Reason: Hypoglycemia Protocol Stop: 01/31/20 03:44 Ferrous Sulfate (Feosol) 325 mg PO QAM [facility] Stop: 01/31/20 08:59 Last Admin: 01/01/20 07:51 Dose: 325 mg Documented by: Fluticasone/Vilanterol (Breo Ellipta 100/25 Mcg Inh) 1 puffs INH DAILY ANA Stop: 01/31/20 08:59 Last Admin: 01/01/20 07:52 Dose: 1 puffs Documented by: Glucagon (Glucagen) 1 mg IM UD PRN; Protocol PRN Reason: Hypoglycemia Protocol Stop: 01/31/20 03:44 Glucose (Glucose 40%) 15 - 30 gm PO UD PRN; Protocol PRN Reason: Hypoglycemia Protocol Stop: 01/31/20 03:44 Glucose (Dex4 Glucose) 4 - 8 tabs PO UD PRN; Protocol PRN Reason: Hypoglycemia Protocol Stop: 01/31/20 03:44 Heparin Sodium (Porcine) (Heparin Sodium (Porcine)) 5,000 units SQ Q12 ANA Stop: 01/31/20 08:59 Last Admin: 01/01/20 07:52 Dose: 5,000 units Documented by: Hydrochlorothiazide (Hctz) 25 mg PO QAM ANA Stop: 01/31/20 08:59 Last Admin: 01/01/20 07:51 Dose: 25 mg Documented by: Insulin Aspart (Novolog Flexpen) 0 units SC ACHS [facility] Stop: 01/31/20 07:29 Last Admin: 01/01/20 17:34 Dose: 3 units Documented by: Ipratropium [place] (Atrovent Hfa) 1 puffs INH QIDR [facility] Stop: 01/31/20 06:59 Last Admin: 01/01/20 15:03 Dose: 1 puffs Documented by: Metoprolol Succinate (Toprol Xl) 100 mg PO DAILY ANA Stop: 01/31/20 08:59 Last Admin: 01/01/20 07:51 Dose: 100 mg Documented by: Mirtazapine (Remeron) 7.5 mg PO HS [facility] Stop: 01/31/20 20:59 Miscellaneous (Carbohydrates For Hypoglycemia) 15 - 30 gm PO UD PRN PRN Reason: Hypoglycemia Treatment Stop: 01/31/20 03:44 Nitroglycerin (Nitrostat) 0.4 mg SL UD PRN PRN Reason: Chest Pain Stop: 01/31/20 03:13 Ondansetron HCl (Zofran) 4 mg IV Q6H PRN PRN Reason: Nausea Stop: 01/31/20 03:13 Pantoprazole Sodium (Protonix) 40 mg PO DAILY [facility] Stop: 01/31/20 08:59 Last Admin: 01/01/20 07:50 Dose: 40 mg Documented by: Polyethylene Glycol (Miralax Powder Packet) 17 gm PO DAILY PRN PRN Reason: Constipation Stop: 01/31/20 03:13 (1) Traumatic open wound of right lower leg Encounter type: initial encounter Qualified Code(s): S81.801A - Unspecified open wound, right lower leg, initial encounter
[2020-01-01] MEDS: CARBOHYDRATES FOR HYPOGLYCEMIA PO PRN (20:25)
[2020-01-01] MEDS: MIRTAZAPINE TAB 15 MG TAB PO SCH (21:20)
[2020-01-02] MEDS: ALBUTEROL HFA 8 GM INHALER INH SCH ×4 (07:24→19:27)
[2020-01-02] MEDS: IPRATROPIUM BROMIDE HFA INHALER INH SCH ×4 (07:24→19:26)
[2020-01-02] MEDS: CLOPIDOGREL BISULFATE 75 MG TAB PO SCH (07:37)
[2020-01-02] MEDS: METOPROLOL SUCC 50MG EXT REL TAB PO SCH (07:37)
[2020-01-02] MEDS: hydroCHLOROthiazide 25 MG TAB PO SCH (07:37)
[2020-01-02] MEDS: FERROUS SULFATE 325 MG TAB PO SCH (07:37)
[2020-01-02] MEDS: ATORVASTATIN 40 MG TAB PO SCH (07:38)
[2020-01-02] MEDS: PANTOprazole 40 MG TAB PO SCH (07:38)
[2020-01-02] MEDS: FLUTICASONE/VILANTEROL 100/25MCG 14 PUFFS/INHALER INH SCH (07:38)
[2020-01-02] MEDS: HEPARIN SOD 5,000 UNIT/0.5 ML VIAL SQ SCH ×2 (07:39→20:32)
[2020-01-02] MEDS: INSULIN ASPART 100 UNITS/ML 3 ML PEN SC SCH ×4 (08:36→20:31)
[2020-01-02] MEDS: ONDANSETRON INJ 2 MG/ML 2 ML VIAL IV PRN ×2 (08:42→18:00)
[2020-01-02 08:56] LABS: Alanine Aminotransferase 86 U/L (12-78); Albumin Level 1.9 gm/dl (3.4-5.0); Alkaline Phosphatase 246 U/L (45-117); Aspartate Aminotransferase 40 U/L (15-37); Bilirubin Direct < 0.1 mg/dl (0-0.2); Bilirubin,Total 0.3 mg/dl (0.2-1); Total Protein 4.8 gm/dl (6.4-8.2)
--- NOTE | 2020-01-02 11:33 | Hospitalist Progress Note ---
Date of Service January 02, 2020 Assessment & Plan (1) Generalized muscle weakness: 2/2 multiple medical issues and deconditioning. PT/OT to evaluate and patient to transfer to SNF when able. (2) Chronic hypoxemic respiratory failure: no changes from baseline oxygen needs. No wheezing present. Cont 2L NC continuously. (3) Traumatic open wound of right lower leg: Stable, covered with Aquacel and Optifoam. Followup with wound care in one week. (4) Anemia: Related to chronic disease. Received blood transfusion last admission. H/H appears stable, cont close monitoring. (5) Stage III chronic kidney disease: At baseline. Cont to avoid nephrotoxic substances and renally dose medications as needed. (6) Malnutrition: Nutrition consulted for calorie counts and recs. Supplements recommended. (7) DVT prophylaxis: heparin Full Code Dipso-to SNF. She is medically cleared for discharge when there is a bed available. Joy Mcelroy DO [facility] Hospitalist Admission and Anticipated Discharge Date Admission Date: January 01, 2020 Subjective Pt doing well today ambulating as tolerated no issues tolerating PO RLE wound is fine and without pain per her report. Review of Systems Review of Systems: All systems reviewed & are unremarkable except as noted in Subjective Physical Exam Physical Exam: CONSTITUTIONAL: thin, frail, vitals as above, generally well- appearing EYES: normal conjunctivae, no scleral icterus ENT: external ear and nose normal, MMM RESPIRATORY: clear to auscultation bilaterally, no crackles, rales or wheezes, normal respiratory effort CARDIOVASCULAR: regular rate and rhythm, S1 and 2 heard without murmurs, gallops or rubs, no JVD, no peripheral edema GASTROINTESTINAL: soft, nontender, nondistended MUSCULOSKELETAL: strength 5/5 throughout, head is normocephalic and atraumatic. Moves around bed with ease independently. SKIN: warm and dry NEUROLOGIC: CN 2-12 grossly intact, normal cognition, normal speech, no tremor, no gross focal deficits. PSYCHIATRIC: alert cooperative and oriented Results & Data Results & Data ([facility]) Vital Signs (Past 12 Hours) Vital Signs Temp Pulse Resp BP BP Pulse Ox 01/02/20 07:43 36.8 C 84 20 174/70 H 98 01/01/20 23:55 37.1 C 88 20 126/56 L 97 Laboratory Results Liver Function 01/02/20 Range/Units 08:02 Total Bilirubin 0.3 (0.2-1) mg/dl Direct Bilirubin < 0.1 (0-0.2) mg/dl AST 40 H (15-37) U/L ALT 86 H (12-78) U/L Alkaline Phosphatase 246 H (45-117) U/L Albumin 1.9 L (3.4-5.0) gm/dl Medications Administered Current Inpatient Medications Acetaminophen (Tylenol) 650 mg PO Q4H PRN PRN Reason: Pain or Fever Stop: 01/31/20 03:13 Albuterol (Ventolin Hfa) 2 puffs INH Q6H PRN PRN Reason: Shortness Of Breath Stop: 01/31/20 03:13 Albuterol (Duoneb) 3 ml INH Q4H PRN PRN Reason: Shortness Of Breath Stop: 01/31/20 03:13 Albuterol (Ventolin Hfa) 1 puffs INH QIDR ANA Stop: 01/31/20 06:59 Last Admin: 01/02/20 19:27 Dose: 1 puffs Documented by: Atorvastatin Calcium (Lipitor) 80 mg PO DAILY [facility] Stop: 01/31/20 08:59 Last Admin: 01/02/20 07:38 Dose: 80 mg Documented by: Clopidogrel Bisulfate (Plavix) 75 mg PO DAILY [facility] Stop: 01/31/20 08:59 Last Admin: 01/02/20 07:37 Dose: 75 mg Documented by: Dextrose (Dextrose 50%) 25 - 50 ml IV UD PRN; Protocol PRN Reason: Hypoglycemia Protocol Stop: 01/31/20 03:44 Ferrous Sulfate (Feosol) 325 mg PO QAM ANA Stop: 01/31/20 08:59 Last Admin: 01/02/20 07:37 Dose: 325 mg Documented by: Fluticasone/Vilanterol (Breo Ellipta 100/25 Mcg Inh) 1 puffs INH DAILY [facility] Stop: 01/31/20 08:59 Last Admin: 01/02/20 07:38 Dose: 1 puffs Documented by: Glucagon (Glucagen) 1 mg IM UD PRN; Protocol PRN Reason: Hypoglycemia Protocol Stop: 01/31/20 03:44 Glucose (Glucose 40%) 15 - 30 gm PO UD PRN; Protocol PRN Reason: Hypoglycemia Protocol Stop: 01/31/20 03:44 Glucose (Dex4 Glucose) 4 - 8 tabs PO UD PRN; Protocol PRN Reason: Hypoglycemia Protocol Stop: 01/31/20 03:44 Heparin Sodium (Porcine) (Heparin Sodium (Porcine)) 5,000 units SQ Q12 ANA Stop: 01/31/20 08:59 Last Admin: 01/02/20 20:32 Dose: 5,000 units Documented by: Hydrochlorothiazide (Hctz) 25 mg PO QAM [facility] Stop: 01/31/20 08:59 Last Admin: 01/02/20 07:37 Dose: 25 mg Documented by: Insulin Aspart (Novolog Flexpen) 0 units SC ACHS [facility] Stop: 01/31/20 07:29 Last Admin: 01/02/20 20:31 Dose: Not Given Documented by: Ipratropium [place] (Atrovent Hfa) 1 puffs INH QIDR [facility] Stop: 01/31/20 06:59 Last Admin: 01/02/20 19:26 Dose: 1 puffs Documented by: Metoprolol Succinate (Toprol Xl) 100 mg PO DAILY [facility] Stop: 01/31/20 08:59 Last Admin: 01/02/20 07:37 Dose: 100 mg Documented by: Mirtazapine (Remeron) 7.5 mg PO HS [facility] Stop: 01/31/20 20:59 Last Admin: 01/02/20 20:31 Dose: 7.5 mg Documented by: Miscellaneous (Carbohydrates For Hypoglycemia) 15 - 30 gm PO UD PRN PRN Reason: Hypoglycemia Treatment Stop: 01/31/20 03:44 Last Admin: 01/02/20 11:52 Dose: 15 gm Documented by: Nitroglycerin (Nitrostat) 0.4 mg SL UD PRN PRN Reason: Chest Pain Stop: 01/31/20 03:13 Ondansetron HCl (Zofran) 4 mg IV Q6H PRN PRN Reason: Nausea Stop: 01/31/20 03:13 Last Admin: 01/02/20 18:00 Dose: 4 mg Documented by: Pantoprazole Sodium (Protonix) 40 mg PO DAILY [facility] Stop: 01/31/20 08:59 Last Admin: 01/02/20 07:38 Dose: 40 mg Documented by: Polyethylene Glycol (Miralax Powder Packet) 17 gm PO DAILY PRN PRN Reason: Constipation Stop: 01/31/20 03:13 (1) Traumatic open wound of right lower leg Encounter type: initial encounter Qualified Code(s): S81.801A - Unspecified open wound, right lower leg, initial encounter
[2020-01-02] MEDS: CARBOHYDRATES FOR HYPOGLYCEMIA PO PRN (11:52)
[2020-01-02] MEDS: MIRTAZAPINE TAB 15 MG TAB PO SCH (20:31)
[2020-01-03] MEDS: IPRATROPIUM BROMIDE HFA INHALER INH SCH ×4 (07:21→20:05)
[2020-01-03] MEDS: ALBUTEROL HFA 8 GM INHALER INH SCH ×4 (07:22→20:05)
--- NOTE | 2020-01-03 08:17 | Electrocardiogram Report ---
Test Reason : Blood Pressure : / mmHG Vent. Rate : 101 BPM Atrial Rate : 101 BPM P-R Int : 168 ms QRS Dur : 094 ms QT Int : 330 ms P-R-T Axes : 084 072 066 degrees QTc Int : 427 ms Poor data quality, interpretation may be adversely affected Sinus tachycardia Nonspecific T wave abnormality Abnormal ECG When compared with ECG of 25-DEC-2019 10:42, Premature ventricular complexes are no longer Present Confirmed by Harshad Sahu ([id number]) on 01/03/2020 8:16:55 AM Referred By: REFERRED SELF Confirmed By:Harshad Sahu
[2020-01-03] MEDS: CLOPIDOGREL BISULFATE 75 MG TAB PO SCH (08:56)
[2020-01-03] MEDS: METOPROLOL SUCC 50MG EXT REL TAB PO SCH (08:56)
[2020-01-03] MEDS: FERROUS SULFATE 325 MG TAB PO SCH (08:57)
[2020-01-03] MEDS: hydroCHLOROthiazide 25 MG TAB PO SCH (08:57)
[2020-01-03] MEDS: PANTOprazole 40 MG TAB PO SCH (08:57)
[2020-01-03] MEDS: FLUTICASONE/VILANTEROL 100/25MCG 14 PUFFS/INHALER INH SCH (08:58)
[2020-01-03] MEDS: ATORVASTATIN 40 MG TAB PO SCH (08:58)
[2020-01-03] MEDS: HEPARIN SOD 5,000 UNIT/0.5 ML VIAL SQ SCH ×2 (08:58→21:40)
[2020-01-03] MEDS: INSULIN ASPART 100 UNITS/ML 3 ML PEN SC SCH ×4 (08:59→21:39)
[2020-01-03] MEDS: ONDANSETRON INJ 2 MG/ML 2 ML VIAL IV PRN ×2 (17:39→18:24)
--- NOTE | 2020-01-03 18:51 | Hospitalist Progress Note ---
Date of Service January 03, 2020 Assessment & Plan (1) Generalized muscle weakness: 2/2 multiple medical issues and deconditioning. PT/OT to evaluate and patient to transfer to SNF when able. (2) Chronic hypoxemic respiratory failure: no changes from baseline oxygen needs. No wheezing present. Cont 2L NC continuously. (3) Traumatic open wound of right lower leg: Stable, covered with Aquacel and Optifoam. Followup with wound care in one week. (4) Anemia: Related to chronic disease. Received blood transfusion last admission. H/H appears stable, cont close monitoring. (5) Stage III chronic kidney disease: At baseline. Cont to avoid nephrotoxic substances and renally dose medications as needed. (6) Malnutrition: Nutrition consulted for calorie counts and recs. Supplements recommended. (7) DVT prophylaxis: heparin Full Code Dipso-to SNF. She is medically cleared for discharge when there is a bed available. Joy Mcelroy DO [facility] Hospitalist Admission and Anticipated Discharge Date Admission Date: January 01, 2020 Subjective she is cold tonight and is upset with some of the staff and the fact that her food has been coming in a paper bag. she is requesting her food be brought on a tray she denies pain she denies weakness and states she is ambulating better she reports some drainiage from her wound today afebrile Review of Systems Review of Systems: All systems reviewed & are unremarkable except as noted in Subjective Physical Exam Physical Exam: CONSTITUTIONAL: thin, frail, vitals as above, generally well-appearing EYES: normal conjunctivae, no scleral icterus ENT: external ear and nose normal, MMM RESPIRATORY: clear to auscultation bilaterally, no crackles, rales or wheezes, normal respiratory effort CARDIOVASCULAR: regular rate and rhythm, S1 and 2 heard without murmurs, gallops or rubs, no JVD, no peripheral edema GASTROINTESTINAL: soft, nontender, nondistended MUSCULOSKELETAL: intact throughout, no gross focal deficit. Gait not assessed. SKIN: warm and dry NEUROLOGIC: CN 2-12 grossly intact, normal cognition, normal speech, no tremor, no gross focal deficits. PSYCHIATRIC: alert cooperative and oriented Results & Data Results & Data ([facility]) Vital Signs (Past 12 Hours) Vital Signs Temp Pulse Resp BP BP Pulse Ox 01/03/20 16:00 36.5 C 67 18 171/53 H 90 01/03/20 15:48 77 18 90 01/03/20 11:40 72 18 98 01/03/20 08:00 37.2 C 89 18 148/65 H 94 01/03/20 07:22 78 20 94 Medications Administered Current Inpatient Medications Acetaminophen (Tylenol) 650 mg PO Q4H PRN PRN Reason: Pain or Fever Stop: 01/31/20 03:13 Albuterol (Ventolin Hfa) 2 puffs INH Q6H PRN PRN Reason: Shortness Of Breath Stop: 01/31/20 03:13 Albuterol (Duoneb) 3 ml INH Q4H PRN PRN Reason: Shortness Of Breath Stop: 01/31/20 03:13 Albuterol (Ventolin Hfa) 1 puffs INH QIDR [facility] Stop: 01/31/20 06:59 Last Admin: 01/03/20 15:39 Dose: 1 puffs Documented by: Atorvastatin Calcium (Lipitor) 80 mg PO DAILY [facility] Stop: 01/31/20 08:59 Last Admin: 01/03/20 08:58 Dose: 80 mg Documented by: Clopidogrel Bisulfate (Plavix) 75 mg PO DAILY [facility] Stop: 01/31/20 08:59 Last Admin: 01/03/20 08:56 Dose: 75 mg Documented by: Dextrose (Dextrose 50%) 25 - 50 ml IV UD PRN; Protocol PRN Reason: Hypoglycemia Protocol Stop: 01/31/20 03:44 Ferrous Sulfate (Feosol) 325 mg PO QAM [facility] Stop: 01/31/20 08:59 Last Admin: 01/03/20 08:57 Dose: 325 mg Documented by: Fluticasone/Vilanterol (Breo Ellipta 100/25 Mcg Inh) 1 puffs INH DAILY [facility] Stop: 01/31/20 08:59 Last Admin: 01/03/20 08:58 Dose: 1 puffs Documented by: Glucagon (Glucagen) 1 mg IM UD PRN; Protocol PRN Reason: Hypoglycemia Protocol Stop: 01/31/20 03:44 Glucose (Glucose 40%) 15 - 30 gm PO UD PRN; Protocol PRN Reason: Hypoglycemia Protocol Stop: 01/31/20 03:44 Glucose (Dex4 Glucose) 4 - 8 tabs PO UD PRN; Protocol PRN Reason: Hypoglycemia Protocol Stop: 01/31/20 03:44 Heparin Sodium (Porcine) (Heparin Sodium (Porcine)) 5,000 units SQ Q12 ANA Stop: 01/31/20 08:59 Last Admin: 01/03/20 08:58 Dose: 5,000 units Documented by: Hydrochlorothiazide (Hctz) 25 mg PO QAM [facility] Stop: 01/31/20 08:59 Last Admin: 01/03/20 08:57 Dose: 25 mg Documented by: Insulin Aspart (Novolog Flexpen) 0 units SC ACHS [facility] Stop: 01/31/20 07:29 Last Admin: 01/03/20 17:57 Dose: Not Given Documented by: Ipratropium [place] (Atrovent Hfa) 1 puffs INH QIDR [facility] Stop: 01/31/20 06:59 Last Admin: 01/03/20 15:39 Dose: 1 puffs Documented by: Metoprolol Succinate (Toprol Xl) 100 mg PO DAILY [facility] Stop: 01/31/20 08:59 Last Admin: 01/03/20 08:56 Dose: 100 mg Documented by: Mirtazapine (Remeron) 7.5 mg PO HS [facility] Stop: 01/31/20 20:59 Last Admin: 01/02/20 20:31 Dose: 7.5 mg Documented by: Miscellaneous (Carbohydrates For Hypoglycemia) 15 - 30 gm PO UD PRN PRN Reason: Hypoglycemia Treatment Stop: 01/31/20 03:44 Last Admin: 01/02/20 11:52 Dose: 15 gm Documented by: Nitroglycerin (Nitrostat) 0.4 mg SL UD PRN PRN Reason: Chest Pain Stop: 01/31/20 03:13 Ondansetron HCl (Zofran) 4 mg IV Q6H PRN PRN Reason: Nausea Stop: 01/31/20 03:13 Last Admin: 01/03/20 18:24 Dose: 4 mg Documented by: Pantoprazole Sodium (Protonix) 40 mg PO DAILY [facility] Stop: 01/31/20 08:59 Last Admin: 01/03/20 08:57 Dose: 40 mg Documented by: Polyethylene Glycol (Miralax Powder Packet) 17 gm PO DAILY PRN PRN Reason: Constipation Stop: 01/31/20 03:13 (1) Traumatic open wound of right lower leg Encounter type: initial encounter Qualified Code(s): S81.801A - Unspecified open wound, right lower leg, initial encounter
[2020-01-03] MEDS: MIRTAZAPINE TAB 15 MG TAB PO SCH (21:44)
[2020-01-04] MEDS: METOPROLOL SUCC 50MG EXT REL TAB PO SCH (02:40)
[2020-01-04] MEDS: IPRATROPIUM BROMIDE HFA INHALER INH SCH ×4 (06:56→19:07)
[2020-01-04] MEDS: ALBUTEROL HFA 8 GM INHALER INH SCH ×4 (06:56→19:07)
[2020-01-04] MEDS: PANTOprazole 40 MG TAB PO SCH (08:08)
[2020-01-04] MEDS: CLOPIDOGREL BISULFATE 75 MG TAB PO SCH (08:08)
[2020-01-04] MEDS: FERROUS SULFATE 325 MG TAB PO SCH (08:08)
[2020-01-04] MEDS: FLUTICASONE/VILANTEROL 100/25MCG 14 PUFFS/INHALER INH SCH (08:08)
[2020-01-04] MEDS: HEPARIN SOD 5,000 UNIT/0.5 ML VIAL SQ SCH ×2 (08:09→21:18)
[2020-01-04] MEDS: ATORVASTATIN 40 MG TAB PO SCH (08:09)
[2020-01-04] MEDS: hydroCHLOROthiazide 25 MG TAB PO SCH (08:09)
[2020-01-04] MEDS: INSULIN ASPART 100 UNITS/ML 3 ML PEN SC SCH ×4 (08:10→21:16)
--- NOTE | 2020-01-04 14:25 | Wound Consultation ---
Date of Consultation January 04, 2020 Assessment & Plan (1) Traumatic open wound of right lower leg: Wound is covered with more slough and would likely benefit from a wound VAC. No debridement was done today. Wound culture was obtained. We will apply to his cleanse wound VAC. Will reevaluate next week. History of Present Illness Reason for Consultation: Traumatic wound of the right lower extremity Attending Physician: Joy Mcelroy DO History of Present Illness This is an 79-year-old female who is being followed during her previous admission. She was discharged on December 31, 2019 and returned the same evening. Patient has a past medical history of CKD stage IV, type 2 diabetes, CAD status post bare-metal stent in 2008, hypertension, COPD with nocturnal hypoxemia and worsening anemia. Patient with persistent weakness and more confusion than baseline. She denies any new complaints at this time. Allergies Allergy/AdvReac Type Severity Reaction Status Date / Time codeine Allergy Mild Unknown Verified 12/31/19 22:55 amoxicillin Allergy Unknown unknown Verified 12/31/19 22:55 aspirin Allergy Unknown UNKNOWN Verified 12/31/19 22:55 bacitracin Allergy Unknown Rash Verified 12/31/19 22:55 isosorbide Allergy Unknown unknown Verified 12/31/19 22:55 neomycin Allergy Unknown Rash Verified 12/31/19 22:55 polymyxin B Allergy Unknown Rash Verified 12/31/19 22:55 Home Medications Home Medications Medication Instructions Recorded Confirmed Type Combivent Respimat 1 puff INHALATION QID 05/01/19 12/31/19 History Tradjenta 5 mg PO DAILY 05/01/19 12/31/19 History albuterol sulfate [Ventolin HFA] 2 puff INHALATION Q6H PRN 05/01/19 12/31/19 History atorvastatin 80 mg PO DAILY 05/01/19 12/31/19 History budesonide-formoterol [Symbicort] 2 puff INHALATION BID 05/01/19 12/31/19 History clopidogrel 75 mg PO DAILY 05/01/19 12/31/19 History glipizide 5 mg PO DAILY 05/01/19 12/31/19 History ipratropium-albuterol 3 ml INHALATION Q4H PRN 05/01/19 12/31/19 History metoprolol succinate 100 mg PO DAILY 05/01/19 12/31/19 History mirtazapine 7.5 mg PO HS 05/01/19 12/31/19 History pantoprazole 20 mg PO DAILY 05/01/19 12/31/19 History prednisone 20 mg PO DIRECTED 12/25/19 12/31/19 History ferrous sulfate 325 mg PO QAM #30 tab 12/31/19 12/31/19 Rx hydrochlorothiazide 25 mg PO QAM #30 tab 12/31/19 12/31/19 Rx Patient History Medical History CAD (coronary artery disease) (Chronic) "NSTEMI 01/2009 - BMS to distal left circumflex, cath at that time showed 100% proximal RCA occlusion" CKD (chronic kidney disease), stage IV (Chronic) COPD, severe (Chronic) "oxygen requiring" DM type 2 (diabetes mellitus, type 2) (Chronic) Dyslipidemia (Chronic) Femoral artery aneurysm, right (Chronic) "s/p repair" GERD (gastroesophageal reflux disease) (Chronic) HTN (hypertension) Hypercalcemia Iron deficiency anemia Ischemic cardiomyopathy (Chronic) "echo 04/2015- EF 50-55%, grade I diastolic dysfunction" On 05/02/15 18:17 Adele Kareen wrote "echo 2010 - EF 45-50%, grade I diastolic dysfunction" Nocturnal hypoxemia PVD (peripheral vascular disease) (Chronic) Surgical History H/O aorto-femoral bypass (Chronic) History of hysterectomy (Chronic) Hx of appendectomy (Chronic) Hx of cataract surgery (Chronic) S/P carotid endarterectomy (Chronic) "left in 2001, left carotid stent placed 2002" S/P femoral-popliteal bypass surgery (Chronic) Family History Other Heart disease Denies family history of Diabetes COPD (chronic obstructive pulmonary disease) Social History Smoking Status: Former smoker Hx Alcohol Use: No Hx Substance Use: No Preferred Language: Italian Communication Ability: Effective Renal Medicine Physician Required: No Beliefs That Will Affect Care: None marital status: / Current Living Situation: Alone Other Information That Helps Us Care for You: No Feels Safe at Home: Yes Safety Concerns: Feels Safe At This Time Review of Systems Review of Systems: All systems reviewed & are unremarkable except as noted in HPI & below Physical Exam Physical Exam: Temp Pulse Resp BP Pulse Ox 36.6 C 76 18 159/55 H 98 01/04/20 07:48 01/04/20 11:38 01/04/20 11:38 01/04/20 07:48 01/04/20 11:38 Constitutional: + ill appearing Eyes: PERRL, conjunctivae normal, anicteric sclerae ENMT: external ear and nose normal, oropharynx normal Ears: + hearing impairment Skin: Wound measuring as recorded in nursing documentation. Wound is covered with yellow slough. Periwound is intact without erythema. There is moderate drainage no foul odors. Neurologic: awake and + confused Psychiatric: Orientation: alert, oriented to person, oriented to place and cooperative Results & Data Vital Signs (Past 12 Hours) Vital Signs Temp Pulse Resp BP Pulse Ox 01/04/20 11:38 76 18 98 01/04/20 07:48 36.6 C 78 18 159/55 H 95 01/04/20 06:58 71 18 98 01/04/20 02:37 88 180/65 H PG Care Time/CCT Total # of Minutes Spent Total Time Spent with Patient: Total time spent is greater than 50% in coordination of care (as documented) at patient's floor/unit and/or counseling patient: Coding Level of Care Code 50192 Inpt Consult Level 2 Diagnoses Traumatic open wound of right lower leg S81.801A Encounter type: initial encounter (1) Traumatic open wound of right lower leg Encounter type: initial encounter Qualified Code(s): S81.801A - Unspecified open wound, right lower leg, initial encounter
--- NOTE | 2020-01-04 16:44 | Hospitalist Progress Note ---
Date of Service January 04, 2020 Assessment & Plan (1) Traumatic open wound of right lower leg: Stable, covered with Aquacel and Optifoam but was draining too much. Wound care provider consulted and wound vac was applied. Followup with wound care as outpatient. (2) Generalized muscle weakness: 2/2 multiple medical issues and deconditioning. PT/OT to evaluate and patient to transfer to SNF when able. (3) Chronic hypoxemic respiratory failure: no changes from baseline oxygen needs. No wheezing present. Cont 2L NC continuously. (4) Anemia: Related to chronic disease. Received blood transfusion last admission. H/H appears stable, cont close monitoring. (5) Stage III chronic kidney disease: At baseline. Cont to avoid nephrotoxic substances and renally dose medications as needed. (6) Malnutrition: Nutrition consulted for calorie counts and recs. Supplements recommended. (7) DVT prophylaxis: heparin Full Code Dipso-to SNF. She is medically cleared for discharge when there is a bed available. [facility] and [facility]tic[facility]ated Discharge Date Admission Date: January 01, 2020 Subjective Pt doing well Wound vac applied today by wound care physician Pt denies pain tolerating PO Review of Systems Review of Systems: All systems reviewed & are unremarkable except as noted in Subjective Physical Exam Physical Exam: CONSTITUTIONAL: thin, frail, vitals as above, generally well- appearing EYES: normal conjunctivae, no scleral icterus ENT: external ear and nose normal, MMM RESPIRATORY: clear to auscultation bilaterally, no crackles, rales or wheezes, normal respiratory effort CARDIOVASCULAR: regular rate and rhythm, S1 and 2 heard without murmurs, gallops or rubs, no JVD, no peripheral edema GASTROINTESTINAL: soft, nontender, nondistended MUSCULOSKELETAL: intact throughout, no gross focal deficit. Gait not assessed. SKIN: warm and dry NEUROLOGIC: CN 2-12 grossly intact, normal cognition, normal speech, no tremor, no gross focal deficits. PSYCHIATRIC: alert cooperative and oriented Results & Data Results & Data ([facility]) Vital Signs (Past 12 Hours) Vital Signs Temp Pulse Resp BP Pulse Ox 01/04/20 15:34 74 18 98 01/04/20 15:14 36.7 C 79 18 176/79 H 98 01/04/20 11:38 76 18 98 01/04/20 07:48 36.6 C 78 18 159/55 H 95 01/04/20 06:58 71 18 98 Medications Administered Current Inpatient Medications Acetaminophen (Tylenol) 650 mg PO Q4H PRN PRN Reason: Pain or Fever Stop: 01/31/20 03:13 Albuterol (Ventolin Hfa) 2 puffs INH Q6H PRN PRN Reason: Shortness Of Breath Stop: 01/31/20 03:13 Albuterol (Duoneb) 3 ml INH Q4H PRN PRN Reason: Shortness Of Breath Stop: 01/31/20 03:13 Albuterol (Ventolin Hfa) 1 puffs INH QIDR ANA Stop: 01/31/20 06:59 Last Admin: 01/04/20 15:34 Dose: 1 puffs Documented by: Atorvastatin Calcium (Lipitor) 80 mg PO DAILY [facility] Stop: 01/31/20 08:59 Last Admin: 01/04/20 08:09 Dose: 80 mg Documented by: Clopidogrel Bisulfate (Plavix) 75 mg PO DAILY [facility] Stop: 01/31/20 08:59 Last Admin: 01/04/20 08:08 Dose: 75 mg Documented by: Dextrose (Dextrose 50%) 25 - 50 ml IV UD PRN; Protocol PRN Reason: Hypoglycemia Protocol Stop: 01/31/20 03:44 Ferrous Sulfate (Feosol) 325 mg PO QAM [facility] Stop: 01/31/20 08:59 Last Admin: 01/04/20 08:08 Dose: 325 mg Documented by: Fluticasone/Vilanterol (Breo Ellipta 100/25 Mcg Inh) 1 puffs INH DAILY [facility] Stop: 01/31/20 08:59 Last Admin: 01/04/20 08:08 Dose: 1 puffs Documented by: Glucagon (Glucagen) 1 mg IM UD PRN; Protocol PRN Reason: Hypoglycemia Protocol Stop: 01/31/20 03:44 Glucose (Glucose 40%) 15 - 30 gm PO UD PRN; Protocol PRN Reason: Hypoglycemia Protocol Stop: 01/31/20 03:44 Glucose (Dex4 Glucose) 4 - 8 tabs PO UD PRN; Protocol PRN Reason: Hypoglycemia Protocol Stop: 01/31/20 03:44 Heparin Sodium (Porcine) (Heparin Sodium (Porcine)) 5,000 units SQ Q12 [facility] Stop: 01/31/20 08:59 Last Admin: 01/04/20 08:09 Dose: 5,000 units Documented by: Hydrochlorothiazide (Hctz) 25 mg PO QAM [facility] Stop: 01/31/20 08:59 Last Admin: 01/04/20 08:09 Dose: 25 mg Documented by: Insulin Aspart (Novolog Flexpen) 0 units SC ACHS [facility] Stop: 01/31/20 07:29 Last Admin: 01/04/20 12:34 Dose: 4 units Documented by: Ipratropium [place] (Atrovent Hfa) 1 puffs INH QIDR [facility] Stop: 01/31/20 06:59 Last Admin: 01/04/20 15:33 Dose: 1 puffs Documented by: Metoprolol Succinate (Toprol Xl) 100 mg PO DAILY [facility] Stop: 02/03/20 01:44 Last Admin: 01/04/20 02:40 Dose: 100 mg Documented by: Mirtazapine (Remeron) 7.5 mg PO HS [facility] Stop: 01/31/20 20:59 Last Admin: 01/03/20 21:44 Dose: 7.5 mg Documented by: Miscellaneous (Carbohydrates For Hypoglycemia) 15 - 30 gm PO UD PRN PRN Reason: Hypoglycemia Treatment Stop: 01/31/20 03:44 Last Admin: 01/02/20 11:52 Dose: 15 gm Documented by: Nitroglycerin (Nitrostat) 0.4 mg SL UD PRN PRN Reason: Chest Pain Stop: 01/31/20 03:13 Ondansetron HCl (Zofran) 4 mg IV Q6H PRN PRN Reason: Nausea Stop: 01/31/20 03:13 Last Admin: 01/03/20 18:24 Dose: 4 mg Documented by: Pantoprazole Sodium (Protonix) 40 mg PO DAILY [facility] Stop: 01/31/20 08:59 Last Admin: 01/04/20 08:08 Dose: 40 mg Documented by: Polyethylene Glycol (Miralax Powder Packet) 17 gm PO DAILY PRN PRN Reason: Constipation Stop: 01/31/20 03:13 (1) Traumatic open wound of right lower leg Encounter type: initial encounter Qualified Code(s): S81.801A - Unspecified open wound, right lower leg, initial encounter
[2020-01-04] MEDS ORDERED: LANTUS PER UNIT CHARGE SQ SCH (21:00)
[2020-01-04] MEDS: MIRTAZAPINE TAB 15 MG TAB PO SCH (21:17)
[2020-01-05 05:55] LABS: Mean Corpuscular Hemoglobin 30.7 pg (25-34); Mean Corpuscular Hgb Conc 31.3 g/dL (32-36); Mean Corpuscular Volume 98.2 fL (80-100); Mean Platelet Volume 10.1 fL (7.4-10.4); Platelet Count 221 K/uL (130-400); RDW Coefficient of Variation 15.3 % (11.5-14.5); RDW Standard Deviation 54.2 fL (36.4-46.3); Red Blood Count 3.26 M/uL (4.2-5.4); White Blood Count 8.94 K/uL (4.8-10.8)
[2020-01-05 06:37] LABS: BUN Creatinine Ratio 28.8 (10-20); Creatinine Clr Calc Pharmacy 20.7 ml/min; Est GFR (Non-African American) 33.7; Potassium 4.1 mmol/L (3.5-5.1)
[2020-01-05] MEDS: IPRATROPIUM BROMIDE HFA INHALER INH SCH ×4 (07:09→19:43)
[2020-01-05] MEDS: ALBUTEROL HFA 8 GM INHALER INH SCH ×4 (07:10→19:44)
[2020-01-05] MEDS: METOPROLOL SUCC 50MG EXT REL TAB PO SCH (09:15)
[2020-01-05] MEDS: ATORVASTATIN 40 MG TAB PO SCH (09:16)
[2020-01-05] MEDS: PANTOprazole 40 MG TAB PO SCH (09:16)
[2020-01-05] MEDS: HEPARIN SOD 5,000 UNIT/0.5 ML VIAL SQ SCH ×2 (09:16→20:14)
[2020-01-05] MEDS: CLOPIDOGREL BISULFATE 75 MG TAB PO SCH (09:17)
[2020-01-05] MEDS: hydroCHLOROthiazide 25 MG TAB PO SCH (09:17)
[2020-01-05] MEDS: FERROUS SULFATE 325 MG TAB PO SCH (09:17)
[2020-01-05] MEDS: FLUTICASONE/VILANTEROL 100/25MCG 14 PUFFS/INHALER INH SCH (09:18)
[2020-01-05] MEDS: INSULIN ASPART 100 UNITS/ML 3 ML PEN SC SCH ×4 (09:23→20:16)
[2020-01-05] MEDS: ALBUT/IPRATROP 3MG/0.5MG NEB 3 ML VIAL INH PRN (13:05)
--- NOTE | 2020-01-05 14:40 | Hospitalist Progress Note ---
Date of Service January 05, 2020 Assessment & Plan (1) Hypoglycemia: resolved with glucose this morning. Possibly a result of Lantus 10 Units given last night. Holding any insulin this am with breakfast and then resume correction factor and carb coverage with lunch. Stopped Lantus order tonight and continue to monitor. (2) Traumatic open wound of right lower leg: wound vac in place and doing well. Pt denies pain. (3) Generalized muscle weakness: 2/2 multiple medical issues and deconditioning. Recently discharged and had a couple of falls at home, prompting readmission. PT/OT to evaluate and patient to transfer to SNF when able. (4) Chronic hypoxemic respiratory failure: no changes from baseline oxygen needs. No wheezing present. Cont 2L NC continuously. (5) Anemia: Related to chronic disease. Received blood transfusion last admission. Pt reporting cold intolerance. H/H is improved this morning and other labs look improved (other than glucose, addressed above). TSH is normal this week. Offered warm blankets and heating pad which she thanked me for. (6) Stage III chronic kidney disease: Around baseline. Cont to avoid nephrotoxic substances and renally dose medications as needed. (7) Malnutrition: Nutrition consulted for calorie counts and recs. Supplements recommended. (8) DVT prophylaxis: heparin Full Code Dipso-to SNF. She is medically cleared for discharge when there is a bed available. Joy Mcelroy DO [facility] Hospitalist Admission and Anticipated Discharge Date Admission Date: January 01, 2020 Subjective doing well reports cold intolerance denies pain Review of Systems Review of Systems: All systems reviewed & are unremarkable except as noted in Subjective Physical Exam Physical Exam: CONSTITUTIONAL: thin, frail, vitals as above, generally well- appearing, wrapped up in robe and appears cold EYES: normal conjunctivae, no scleral icterus ENT: external ear and nose normal, MMM RESPIRATORY: clear to auscultation bilaterally, no crackles, rales or wheezes, normal respiratory effort CARDIOVASCULAR: regular rate and rhythm, S1 and 2 heard without murmurs, gallops or rubs, no JVD, no peripheral edema GASTROINTESTINAL: soft, nontender, nondistended MUSCULOSKELETAL: intact throughout, no gross focal deficit. Gait not assessed. SKIN: warm and dry, RLE wound vac in place. NEUROLOGIC: CN 2-12 grossly intact, normal cognition, normal speech, no tremor, no gross focal deficits. PSYCHIATRIC: alert cooperative and oriented Results & Data Results & Data ([facility]) Vital Signs (Past 12 Hours) Vital Signs Temp Pulse Resp BP Pulse Ox 01/05/20 13:07 75 22 95 01/05/20 08:01 36.7 C 69 18 150/60 H 100 (1) Traumatic open wound of right lower leg Encounter type: initial encounter Qualified Code(s): S81.801A - Unspecified open wound, right lower leg, initial encounter
[2020-01-05] MEDS: EUCERIN CR 120 GM JAR EXT PRN (19:07)
[2020-01-05] MEDS: MIRTAZAPINE TAB 15 MG TAB PO SCH (20:20)
[2020-01-06] MEDS: IPRATROPIUM BROMIDE HFA INHALER INH SCH ×4 (07:27→19:44)
[2020-01-06] MEDS: ALBUTEROL HFA 8 GM INHALER INH SCH ×4 (07:27→19:43)
[2020-01-06] MEDS: METOPROLOL SUCC 50MG EXT REL TAB PO SCH (08:27)
[2020-01-06] MEDS: PANTOprazole 40 MG TAB PO SCH (08:27)
[2020-01-06] MEDS: hydroCHLOROthiazide 25 MG TAB PO SCH (08:27)
[2020-01-06] MEDS: ATORVASTATIN 40 MG TAB PO SCH (08:28)
[2020-01-06] MEDS: HEPARIN SOD 5,000 UNIT/0.5 ML VIAL SQ SCH ×2 (08:28→19:45)
[2020-01-06] MEDS: FLUTICASONE/VILANTEROL 100/25MCG 14 PUFFS/INHALER INH SCH (08:28)
[2020-01-06] MEDS: FERROUS SULFATE 325 MG TAB PO SCH (08:28)
[2020-01-06] MEDS: INSULIN ASPART 100 UNITS/ML 3 ML PEN SC SCH ×4 (08:29→20:35)
[2020-01-06] MEDS: CLOPIDOGREL BISULFATE 75 MG TAB PO SCH (08:31)
[2020-01-06] MEDS: TRAMADOL HCL 50 MG TABLET PO PRN (11:38)
--- NOTE | 2020-01-06 14:46 | Hospitalist Progress Note ---
Date of Service January 06, 2020 Assessment & Plan (1) Calcific tendinitis of left shoulder: (2) Hypoglycemia: resolved, cont ISS while hospitalized. All Lantus held. (3) Traumatic open wound of right lower leg: wound vac in place and doing well. Pt denies pain. (4) Generalized muscle weakness: 2/2 multiple medical issues and deconditioning. Recently discharged and had a couple of falls at home, prompting readmission. PT/OT to evaluate and patient to transfer to SNF when able. (5) Chronic hypoxemic respiratory failure: no changes from baseline oxygen needs. No wheezing present. Cont 2L NC continuously. (6) Anemia: Related to chronic disease. Received blood transfusion last admission. Pt reporting cold intolerance. (7) Stage III chronic kidney disease: Around baseline. Cont to avoid nephrotoxic substances and renally dose medications as needed. (8) Malnutrition: Nutrition consulted for calorie counts and recs. Supplements recommended. (9) DVT prophylaxis: heparin Full Code Dipso-to SNF. She is medically cleared for discharge when there is a bed available. Joy Mcelroy DO [facility] Hospitalist Admission and Anticipated Discharge Date Admission Date: January 01, 2020 Subjective new pain and decreased movement in left shoulder since this morning Tylenol unhelpful--tramadol helped somewhat wound vac in place and doing well-patient denies pain Review of Systems Review of Systems: All systems reviewed & are unremarkable except as noted in Subjective Physical Exam Physical Exam: CONSTITUTIONAL: thin, frail, vitals as above, generally well- appearing, wrapped up in robe and appears cold EYES: normal conjunctivae, no scleral icterus ENT: external ear and nose normal, MMM RESPIRATORY: clear to auscultation bilaterally, no crackles, rales or wheezes, normal respiratory effort CARDIOVASCULAR: regular rate and rhythm, S1 and 2 heard without murmurs, gallops or rubs, no JVD, no peripheral edema GASTROINTESTINAL: soft, nontender, nondistended MUSCULOSKELETAL: LEFT SHOULDER: shoulders are symmetric, normal ROM R shoulder, cannot internally rotate Left shoulder, cannot adduct L shoulder at all. TTP. Otherwise intact throughout, able to sit up in bed with minimal assistance. SKIN: warm and dry, RLE wound vac in place. NEUROLOGIC: CN 2-12 grossly intact, normal cognition, normal speech, no tremor, no gross focal deficits. PSYCHIATRIC: alert cooperative and oriented Results & Data Results & Data ([facility]) Vital Signs (Past 12 Hours) Vital Signs Temp Pulse Resp BP Pulse Ox 01/06/20 11:29 86 20 99 01/06/20 07:37 36.7 C 75 18 147/57 H 97 01/06/20 07:27 79 22 96 Diagnostic Findings XR shoulder LT min 2V routine CLINICAL HISTORY: Left shoulder pain. Decreased range of motion. COMPARISON: None. DISCUSSION: There are extensive peritendinous calcifications suggesting calcific tendinopathy. There are no fractures. There is suspected underlying pulmonary emphysema. There is no evidence for soft tissue swelling. IMPRESSION: 1. No acute fractures 2. Suspected calcific tendinopathy Medications Administered Current Inpatient Medications Acetaminophen (Tylenol) 650 mg PO Q4H PRN PRN Reason: Pain or Fever Stop: 01/31/20 03:13 Last Admin: 01/06/20 07:32 Dose: 650 mg Documented by: Albuterol (Ventolin Hfa) 2 puffs INH Q6H PRN PRN Reason: Shortness Of Breath Stop: 01/31/20 03:13 Albuterol (Duoneb) 3 ml INH Q4H PRN PRN Reason: Shortness Of Breath Stop: 01/31/20 03:13 Last Admin: 01/05/20 13:05 Dose: 3 ml Documented by: Albuterol (Ventolin Hfa) 1 puffs INH QIDR [facility] Stop: 01/31/20 06:59 Last Admin: 01/06/20 11:28 Dose: 1 puffs Documented by: Atorvastatin Calcium (Lipitor) 80 mg PO DAILY [facility] Stop: 01/31/20 08:59 Last Admin: 01/06/20 08:28 Dose: 80 mg Documented by: Clopidogrel Bisulfate (Plavix) 75 mg PO DAILY [facility] Stop: 01/31/20 08:59 Last Admin: 01/06/20 08:31 Dose: 75 mg Documented by: Dextrose (Dextrose 50%) 25 - 50 ml IV UD PRN; Protocol PRN Reason: Hypoglycemia Protocol Stop: 01/31/20 03:44 Last Admin: 01/05/20 06:43 Dose: 50 ml Documented by: Ferrous Sulfate (Feosol) 325 mg PO QAM [facility] Stop: 01/31/20 08:59 Last Admin: 01/06/20 08:28 Dose: 325 mg Documented by: Fluticasone/Vilanterol (Breo Ellipta 100/25 Mcg Inh) 1 puffs INH DAILY [facility]NA Stop: 01/31/20 08:59 Last Admin: 01/06/20 08:28 Dose: 1 puffs Documented by: Glucagon (Glucagen) 1 mg IM UD PRN; Protocol PRN Reason: Hypoglycemia Protocol Stop: 01/31/20 03:44 Glucose (Glucose 40%) 15 - 30 gm PO UD PRN; Protocol PRN Reason: Hypoglycemia Protocol Stop: 01/31/20 03:44 Glucose (Dex4 Glucose) 4 - 8 tabs PO UD PRN; Protocol PRN Reason: Hypoglycemia Protocol Stop: 01/31/20 03:44 Heparin Sodium (Porcine) (Heparin Sodium (Porcine)) 5,000 units SQ Q12 ANA Stop: 01/31/20 08:59 Last Admin: 01/06/20 08:28 Dose: 5,000 units Documented by: Hydrochlorothiazide (Hctz) 25 mg PO QAM ANA Stop: 01/31/20 08:59 Last Admin: 01/06/20 08:27 Dose: 25 mg Documented by: Insulin Aspart (Novolog Flexpen) 0 units SC ACHS ANA Stop: 01/31/20 07:29 Last Admin: 01/06/20 12:29 Dose: 5 units Documented by: Ipratropium [place] (Atrovent Hfa) 1 puffs INH QIDR ANA Stop: 01/31/20 06:59 Last Admin: 01/06/20 11:28 Dose: 1 puffs Documented by: Metoprolol Succinate (Toprol Xl) 100 mg PO DAILY ANA Stop: 02/03/20 01:44 Last Admin: 01/06/20 08:27 Dose: 100 mg Documented by: Mirtazapine (Remeron) 7.5 mg PO HS ANA Stop: 01/31/20 20:59 Last Admin: 01/05/20 20:20 Dose: 7.5 mg Documented by: Miscellaneous (Carbohydrates For Hypoglycemia) 15 - 30 gm PO UD PRN PRN Reason: Hypoglycemia Treatment Stop: 01/31/20 03:44 Last Admin: 01/02/20 11:52 Dose: 15 gm Documented by: Multi-Ingredient Cream (Hydrocerin) 1 appln EXT UD PRN PRN Reason: DRY SKIN Stop: 02/04/20 18:07 Last Admin: 01/05/20 19:07 Dose: 1 appln Documented by: Nitroglycerin (Nitrostat) 0.4 mg SL UD PRN PRN Reason: Chest Pain Stop: 01/31/20 03:13 Ondansetron HCl (Zofran) 4 mg IV Q6H PRN PRN Reason: Nausea Stop: 01/31/20 03:13 Last Admin: 01/03/20 18:24 Dose: 4 mg Documented by: Pantoprazole Sodium (Protonix) 40 mg PO DAILY ANA Stop: 01/31/20 08:59 Last Admin: 01/06/20 08:27 Dose: 40 mg Documented by: Polyethylene Glycol (Miralax Powder Packet) 17 gm PO DAILY PRN PRN Reason: Constipation Stop: 01/31/20 03:13 Tramadol HCl (Ultram) 50 mg PO Q6H PRN PRN Reason: Pain Stop: 02/05/20 10:05 Last Admin: 01/06/20 11:38 Dose: 50 mg Documented by: (1) Traumatic open wound of right lower leg Encounter type: initial encounter Qualified Code(s): S81.801A - Unspecified open wound, right lower leg, initial encounter
[2020-01-06] MEDS: EUCERIN CR 120 GM JAR EXT PRN (17:33)
[2020-01-06] MEDS ORDERED: TRAMADOL HCL 50 MG TABLET PO STA (19:23)
[2020-01-06] MEDS: ACETAMINOPHEN 500 MG TAB PO SCH (19:43)
[2020-01-06] MEDS: MIRTAZAPINE TAB 15 MG TAB PO SCH (19:44)
--- NOTE | 2020-01-06 20:04 | XRay Report ---
XR shoulder LT min 2V routine CLINICAL HISTORY: Left shoulder pain. Decreased range of motion. COMPARISON: None. DISCUSSION: There are extensive peritendinous calcifications suggesting calcific tendinopathy. There are no fractures. There is suspected underlying pulmonary emphysema. There is no evidence for soft ti ssue swelling. IMPRESSION: 1. No acute fractures 2. Suspected calcific tendinopathy ACT 112: Negative or not required by law. Electronically signed by: Cole Ro M.D. 01/06/2020 8:02 PM
[2020-01-07] MEDS: ACETAMINOPHEN 500 MG TAB PO SCH ×3 (05:23→21:13)
[2020-01-07] MEDS: IPRATROPIUM BROMIDE HFA INHALER INH SCH ×4 (07:55→19:32)
[2020-01-07] MEDS: ALBUTEROL HFA 8 GM INHALER INH SCH ×4 (07:56→19:33)
[2020-01-07] MEDS: INSULIN ASPART 100 UNITS/ML 3 ML PEN SC SCH ×4 (08:55→21:14)
[2020-01-07] MEDS: HEPARIN SOD 5,000 UNIT/0.5 ML VIAL SQ SCH ×2 (08:56→21:13)
[2020-01-07] MEDS: METOPROLOL SUCC 50MG EXT REL TAB PO SCH (08:59)
[2020-01-07] MEDS: ATORVASTATIN 40 MG TAB PO SCH (09:00)
[2020-01-07] MEDS: hydroCHLOROthiazide 25 MG TAB PO SCH (09:00)
[2020-01-07] MEDS: PANTOprazole 40 MG TAB PO SCH (09:00)
[2020-01-07] MEDS: FLUTICASONE/VILANTEROL 100/25MCG 14 PUFFS/INHALER INH SCH (09:00)
[2020-01-07] MEDS: FERROUS SULFATE 325 MG TAB PO SCH (09:00)
[2020-01-07] MEDS: CLOPIDOGREL BISULFATE 75 MG TAB PO SCH (09:01)
--- NOTE | 2020-01-07 14:26 | Wound Progress Note ---
Date of Service January 07, 2020 Assessment & Plan (1) Traumatic open wound of right lower leg: Wound is improving. No debridement was required. Wound will be dressed with Kelly and an OPTi foam changed every other day. Patient is stable for discharge from a wound standpoint. We will see her in the office after discharge. Thank you for limited participate in the care of this patient. Please call with any questions. Subjective Patient seen at bedside with WOCN. Patient with no new complaints. Says pain is improved. Review of Systems Review of Systems: All systems reviewed & are unremarkable except as noted in HPI & below Physical Exam Skin: Wound measuring as recorded in nursing documentation. Wound remains covered with fibrin and slough however this is improved. Wound margins. Of come in. Periwound is still mildly erythematous. There is moderate drainage no foul odors. Neurologic: awake and + confused Psychiatric: Orientation: oriented to person, oriented to place and cooperative Results & Data Vital Signs (Past 12 Hours) Vital Signs Temp Pulse Resp BP Pulse Ox 01/07/20 11:10 80 20 98 01/07/20 07:56 77 18 96 01/07/20 07:18 36.6 C 66 16 161/68 H 98 PG Care Time/CCT Total # of Minutes Spent Total Time Spent with Patient: Total time spent is greater than 50% in coordination of care (as documented) at patient's floor/unit and/or counseling patient: Coding Level of Care Code 46820 Subseq Hosp Care Lvl 2 Diagnoses Traumatic open wound of right lower leg S81.801A Encounter type: initial encounter (1) Traumatic open wound of right lower leg Encounter type: initial encounter Qualified Code(s): S81.801A - Unspecified open wound, right lower leg, initial encounter
[2020-01-07] MEDS: MIRTAZAPINE TAB 15 MG TAB PO SCH (20:22)
--- NOTE | 2020-01-07 22:50 | Hospitalist Progress Note ---
Date of Service January 07, 2020 Assessment & Plan (1) Fall: Fell at home. Fall probably multifactorial, including general debilitation. CT head did not show any acute findings. X-rays of pelvis and shoulder did not show any fractures. PT / OT. Fall precautions. (2) Traumatic open wound of right lower leg: Recent trauma to right leg with hematoma and open wound. Has been followed by Wound Clinic. Admitted 12/24 - 12/30 with apparent sepsis secondary to wound infection. Treated with course of daptomycin and aztreonam. Seen by Wound Care Team. Wound VAC discontinued. Continue local wound care. (3) CAD (coronary artery disease): No anginal symptoms. Continue aspirin, metoprolol, statin. (4) CHF (congestive heart failure): History of chronic CHF. LVEF in the 40's at one time with follow-up LVEF improved. Echocardiograms also demonstrated diastolic dysfunction. 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 No ANGEL or ARB due to CKD. Continue metoprolol succinate and HCTZ. (5) HTN (hypertension): Hemodynamically stable. Continue HCTZ and metoprolol. (6) Chronic hypoxemic respiratory failure: Chronic hypoxic resp failure secondary to COPD. Continue supplemental O2. (7) COPD, severe: Pulmonary status stable. Continue O2 + usual inhalers. (8) Stage III chronic kidney disease: CKD stage III-IV. Creatinine 01/04 = 1.45. Follow. (9) DM type 2 (diabetes mellitus, type 2): Severe hypoglycemia 12/31 and 01/01 with blood sugars in 60's. Was taking glipizide. PO intake not good. Holding glipizide. FBS today = 149. Check Hgb A1c if not recently done in clinic. (10) Hypoglycemia: Blood sugars in 60's on 12/31 and 01/01. Poor PO intake. Glipizide held. Hypoglycemia resolved. (11) Anemia: Chronic anemia with baseline Hgb 9-10 over past few years. Hgb 8.3 on 12/24 (during last admission). Received 1 unit pRBC's. Hgb 10.0 on 01/04. Follow. (12) Malnutrition: Wt 40.2 kg, BMI 17. Seen by Nutrition. Supplements recommended. (13) Calcific tendinitis of left shoulder: Complained of left shoulder pain. Limited ROM. X-ray showed calcific tendinopathy, no fractures. ROM exercises. Follow-up with Ortho if no improvement. (14) DVT prophylaxis: SQ heparin. Ambulate. (15) Discharge planning issues: Anticipated need for skilled care. Family Medicine follow-up with Dr. Baumann. Admission and Anticipated Discharge Date Admission Date: January 01, 2020 Subjective Recheck for multiple problems. Patient seen in their room around 1440. Feels well. No fever. Wound VAC RLE discontinued earlier today. Review of Systems: Constitutional- no fever. Cardiac- no chest pain. Pulmonary- no cough or SOB. GI- no nausea, vomiting, diarrhea, melena, hematochezia. - no urinary symptoms. Otherwise, as noted above. Physical Exam Constitutional: no acute distress sitting in chair Respiratory: no respiratory distress Auscultation: lungs clear to auscultation bilaterally Cardiovascular: Rate/Rhythm: regular rate and regular rhythm Heart Sounds: no gallop Vessels: no JVD Extremities: + edema (trace pretibial); no calf tenderness Gastrointestinal (Abdomen): normal bowel sounds, soft, nontender, no hep atosplenomegaly Musculoskeletal: Extremities: no cyanosis Shoulder: + limited ROM (left shoulder) Skin: no rashes, warm and dry right leg wound bandaged Psychiatric: Orientation: alert Results & Data Results & Data ([facility]) Vital Signs (Past 12 Hours) Vital Signs Temp Pulse Resp BP Pulse Ox 01/07/20 22:28 37.1 C 69 18 142/53 H 97 01/07/20 19:36 68 16 96 01/07/20 15:44 36.6 C 65 20 146/62 H 97 01/07/20 15:33 85 16 92 01/07/20 11:10 80 20 98 Laboratory Results Laboratory Results - last 24 hr 01/07/20 01/07/20 01/07/20 08:37 12:26 17:13 POC Glucose 149 H 121 H 144 H 01/07/20 01/07/20 19:32 20:33 POC Glucose 185 H 227 H (1) Traumatic open wound of right lower leg Encounter type: initial encounter Qualified Code(s): S81.801A - Unspecified open wound, right lower leg, initial encounter
[2020-01-08] MEDS: ACETAMINOPHEN 500 MG TAB PO SCH ×3 (06:28→21:33)
[2020-01-08 07:03] LABS: BUN Creatinine Ratio 34.8 (10-20); Calcium 8.7 mg/dl (8.5-10.1); Creatinine Clr Calc Pharmacy 21.2 ml/min; Est GFR (African American) 43.7; Est GFR (Non-African American) 37.7; Potassium 4.4 mmol/L (3.5-5.1)
[2020-01-08] MEDS: ALBUTEROL HFA 8 GM INHALER INH SCH ×4 (07:32→19:07)
[2020-01-08] MEDS: IPRATROPIUM BROMIDE HFA INHALER INH SCH ×4 (07:33→19:07)
[2020-01-08] MEDS: HEPARIN SOD 5,000 UNIT/0.5 ML VIAL SQ SCH ×2 (09:12→21:34)
[2020-01-08] MEDS: INSULIN ASPART 100 UNITS/ML 3 ML PEN SC SCH ×4 (09:12→21:34)
[2020-01-08] MEDS: FLUTICASONE/VILANTEROL 100/25MCG 14 PUFFS/INHALER INH SCH (09:16)
[2020-01-08] MEDS: METOPROLOL SUCC 50MG EXT REL TAB PO SCH (09:17)
[2020-01-08] MEDS: ATORVASTATIN 40 MG TAB PO SCH (09:17)
[2020-01-08] MEDS: CLOPIDOGREL BISULFATE 75 MG TAB PO SCH (09:17)
[2020-01-08] MEDS: FERROUS SULFATE 325 MG TAB PO SCH (09:17)
[2020-01-08] MEDS: hydroCHLOROthiazide 25 MG TAB PO SCH (09:17)
[2020-01-08] MEDS: PANTOprazole 40 MG TAB PO SCH (09:17)
[2020-01-08] MEDS: MIRTAZAPINE TAB 15 MG TAB PO SCH (20:52)
--- NOTE | 2020-01-08 23:12 | Hospitalist Progress Note ---
Date of Service January 08, 2020 Assessment & Plan (1) Fall: Fell at home. Fall probably multifactorial, including general debilitation. CT head did not show any acute findings. X-rays of pelvis and shoulder did not show any fractures. PT / OT. Fall precautions. (2) Traumatic open wound of right lower leg: Recent trauma to right leg with hematoma and open wound. Has been followed by Wound Clinic. Admitted 12/24 - 12/30 with apparent sepsis secondary to wound infection. Treated with course of daptomycin and aztreonam. Seen by Wound Care Team. Wound VAC discontinued. Continue local wound care. (3) CAD (coronary artery disease): No anginal symptoms. Continue aspirin, metoprolol, statin. (4) CHF (congestive heart failure): History of chronic CHF. LVEF in the 40's at one time with follow-up LVEF improved. Echocardiograms also demonstrated diastolic dysfunction. 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 No ANGEL or ARB due to CKD. Continue metoprolol succinate and HCTZ. (5) HTN (hypertension): Hemodynamically stable. Continue HCTZ and metoprolol. (6) Chronic hypoxemic respiratory failure: Chronic hypoxic resp failure secondary to COPD. Continue supplemental O2. (7) COPD, severe: Pulmonary status stable. Continue O2 + usual inhalers. (8) Stage III chronic kidney disease: CKD stage III-IV. Creatinine today = 1.32. Follow. (9) DM type 2 (diabetes mellitus, type 2): Severe hypoglycemia 12/31 and 01/01 with blood sugars in 60's. Was taking glipizide and linagliptin at home. Hgb A1c = 6.1 in clinic on 12/21/19. PO intake not good. Tight control not indicated given advanced age and comorbidities. Holding home meds.. FBS today = 161. (10) Hypoglycemia: Blood sugars in 60's on 12/31 and 01/01. Poor PO intake. Glipizide and linagliptin held. Hypoglycemia resolved. (11) Anemia: Chronic anemia with baseline Hgb 9-10 over past few years. Hgb 8.3 on 12/24 (during last admission). Received 1 unit pRBC's. Hgb 10.0 on 01/04. Follow. (12) Malnutrition: Wt 40.2 kg, BMI 17. Seen by Nutrition. Supplements recommended. (13) Calcific tendinitis of left shoulder: Complained of left shoulder pain. Limited ROM. X-ray showed calcific tendinopathy, no fractures. ROM exercises. Follow-up with Ortho if no improvement. (14) DVT prophylaxis: SQ heparin. Ambulate. (15) Discharge planning issues: Anticipated need for skilled care. Family Medicine follow-up with Dr. Baumann. Admission and Anticipated Discharge Date Admission Date: January 01, 2020 Subjective Recheck for multiple problems. Patient seen in their room around 1200. Feels well. No fever. Has some swelling of left hand. No pain. Does not recall any trauma. Review of Systems: Constitutional- no fever. Cardiac- no chest pain. Pulmonary- no cough or SOB. GI- no nausea, vomiting, diarrhea, melena, hematochezia. - no urinary symptoms. Otherwise, as noted above. Physical Exam Constitutional: no acute distress Respiratory: no respiratory distress Auscultation: lungs clear to auscultation bilaterally Cardiovascular: Rate/Rhythm: regular rate and regular rhythm Heart Sounds: no gallop Vessels: no JVD Extremities: + edema (trace pretibial); no calf tenderness Gastrointestinal (Abdomen): normal bowel sounds, soft, nontender, no hepatosplenomegaly Musculoskeletal: Extremities: no cyanosis Shoulder: + limited ROM (left shoulder) swelling dorsum left hand without tenderness, erythema, warmth Skin: no rashes, warm and dry + wound (right leg bandaged) Psychiatric: Orientation: alert Results & Data Results & Data ([facility]) Vital Signs (Past 12 Hours) Vital Signs Temp Pulse Resp BP Pulse Ox 01/08/20 19:08 77 18 97 01/08/20 15:39 67 17 97 01/08/20 15:30 37.2 C 81 17 160/52 H 97 01/08/20 11:22 71 18 98 Laboratory Results 01/08/20 05:33 (1) Traumatic open wound of right lower leg Encounter type: initial encounter Qualified Code(s): S81.801A - Unspecified open wound, right lower leg, initial encounter
[2020-01-09] MEDS: ACETAMINOPHEN 500 MG TAB PO SCH ×3 (06:31→21:06)
[2020-01-09] MEDS: IPRATROPIUM BROMIDE HFA INHALER INH SCH ×5 (07:15→18:59)
[2020-01-09] MEDS: ALBUTEROL HFA 8 GM INHALER INH SCH ×5 (07:16→18:59)
[2020-01-09] MEDS: hydroCHLOROthiazide 25 MG TAB PO SCH (08:50)
[2020-01-09] MEDS: FLUTICASONE/VILANTEROL 100/25MCG 14 PUFFS/INHALER INH SCH (08:50)
[2020-01-09] MEDS: METOPROLOL SUCC 50MG EXT REL TAB PO SCH (08:50)
[2020-01-09] MEDS: FERROUS SULFATE 325 MG TAB PO SCH (08:50)
[2020-01-09] MEDS: CLOPIDOGREL BISULFATE 75 MG TAB PO SCH (08:50)
[2020-01-09] MEDS: PANTOprazole 40 MG TAB PO SCH (08:51)
[2020-01-09] MEDS: ATORVASTATIN 40 MG TAB PO SCH (08:51)
[2020-01-09] MEDS: HEPARIN SOD 5,000 UNIT/0.5 ML VIAL SQ SCH ×2 (08:52→21:01)
[2020-01-09] MEDS: INSULIN ASPART 100 UNITS/ML 3 ML PEN SC SCH ×4 (08:54→21:00)
[2020-01-09] MEDS: COLLAGENASE OINT 30 GM TUBE EXT SCH ×2 (11:22→16:08)
--- NOTE | 2020-01-09 12:07 | Consultation ---
Date of Consultation January 09, 2020 Assessment & Plan (1) Peripheral arterial disease with history of revascularization: Pt with known vascular disease, having undergone aortobifem BPG and RLE fem-pop BPG in 2014, as well as hx of CEA. Pt RLE arterial waveforms appear adequate, and wound has only been present for a few weeks. Recommend continue local wound care. Will be happy to see pt again in 3 wks if wound continues to be nonhealing. Will order LLE arterial to reeval L fem art aneurysm as per hx, as well as a carotid US to eval her HENRY. Will see pt in follow up as outpt for PAD and HENRY, timing dependent on US results. Patient was seen, examined, and chart reviewed. Agree with exam and treatment plan of the Vascular PA. History of Present Illness Reason for Consultation: RLE wound, PAD Attending Physician: Edu Arroyo MD History of Present Illness 79 yo f with multiple medical problems, including CKD, anemia, HTN, COPD on oxygen, DMII, GERD, CAD, ischemic cardiomyopathy, dyslipidemia, and PAD, admitted with wound to RLE, seen in consultation today for PAD. Pt states hx of fall wiht injury of R lateral lower leg on 12/17/19. States she went to ED d/t bleeding from site, where they attempted to suture it closed, however, the sutures did not hold and wound reopened. Has been caring for it locally since then. Pt with longstanding hx of severe PAD, having undergone an aortobifemoral bypass and RLE fem to above knee pop [place] [address] Jenkins. Does not know when it was last imaged. Per old records, pt had bilateral femoral artery aneruysms. Pt denies any calf claudication prior to this injury. Has had some pain in R leg wound, but that is resolved at this time. Denies CERVANTES, fever, chills, chest pain, SOB, abd pain, N/V, rest pain, other wounds, other complaints. Arterial US of RLE demonstrates patent BPG, with possible mild stenosis in outflow vessel, however, waveforms are maintained. Allergies Allergy/AdvReac Type Severity Reaction Status Date / Time codeine Allergy Mild Unknown Verified 12/31/19 22:55 amoxicillin Allergy Unknown unknown Verified 12/31/19 22:55 aspirin Allergy Unknown UNKNOWN Verified 12/31/19 22:55 bacitracin Allergy Unknown Rash Verified 12/31/19 22:55 isosorbide Allergy Unknown unknown Verified 12/31/19 22:55 neomycin Allergy Unknown Rash Verified 12/31/19 22:55 polymyxin B Allergy Unknown Rash Verified 12/31/19 22:55 Home Medications Home Medications Medication Instructions Recorded Confirmed Type Combivent Respimat 1 puff INHALATION QID 05/01/19 12/31/19 History Tradjenta 5 mg PO DAILY 05/01/19 12/31/19 History albuterol sulfate [Ventolin HFA] 2 puff INHALATION Q6H PRN 05/01/19 12/31/19 History atorvastatin 80 mg PO DAILY 05/01/19 12/31/19 History budesonide-formoterol [Symbicort] 2 puff INHALATION BID 05/01/19 12/31/19 History clopidogrel 75 mg PO DAILY 05/01/19 12/31/19 History glipizide 5 mg PO DAILY 05/01/19 12/31/19 History ipratropium-albuterol 3 ml INHALATION Q4H PRN 05/01/19 12/31/19 History metoprolol succinate 100 mg PO DAILY 05/01/19 12/31/19 History mirtazapine 7.5 mg PO HS 05/01/19 12/31/19 History pantoprazole 20 mg PO DAILY 05/01/19 12/31/19 History prednisone 20 mg PO DIRECTED 12/25/19 12/31/19 History ferrous sulfate 325 mg PO QAM #30 tab 12/31/19 12/31/19 Rx hydrochlorothiazide 25 mg PO QAM #30 tab 12/31/19 12/31/19 Rx Patient History Medical History (Updated 01/09/20 @ 12:14 by Kristin Hu PA-C) CAD (coronary artery disease) (Chronic) "NSTEMI 01/2009 - BMS to distal left circumflex, cath at that time showed 100% proximal RCA occlusion" CHF (congestive heart failure) CKD (chronic kidney disease), stage IV (Chronic) COPD, severe (Chronic) "oxygen requiring" DM type 2 (diabetes mellitus, type 2) (Chronic) Dyslipidemia (Chronic) Femoral artery aneurysm, right (Chronic) "s/p repair" GERD (gastroesophageal reflux disease) (Chronic) HTN (hypertension) Hypercalcemia Iron deficiency anemia Ischemic cardiomyopathy (Chronic) "echo 04/2015- EF 50-55%, grade I diastolic dysfunction" On 05/02/15 18:17 Adele Mathur wrote "echo 2010 - EF 45-50%, grade I diastolic dysfunction" Nocturnal hypoxemia Peripheral arterial disease with history of revascularization PVD (peripheral vascular disease) (Chronic) Surgical History H/O aorto-femoral bypass (Chronic) History of hysterectomy (Chronic) Hx of appendectomy (Chronic) Hx of cataract surgery (Chronic) S/P carotid endarterectomy (Chronic) "left in 2001, left carotid stent placed 2002" S/P femoral-popliteal bypass surgery (Chronic) Family History Other Heart disease Denies family history of Diabetes COPD (chronic obstructive pulmonary disease) Social History Smoking Status: Former smoker Hx Alcohol Use: No Hx Substance Use: No Preferred Language: Urdu Communication Ability: Effective Tape Sewer Required: No Beliefs That Will Affect Care: None marital status: / Current Living Situation: Alone Other Information That Helps Us Care for You: No Feels Safe at Home: Yes Safety Concerns: Feels Safe At This Time Review of Systems Review of Systems: All systems reviewed & are unremarkable except as noted in HPI & below Physical Exam Constitutional: WD/WN, vitals as above + thin, healthy appearing, + frail appearing, cooperative and comfortable; not in distress Eyes: PERRL, conjunctivae normal, anicteric sclerae ENMT: external ear and nose normal, oropharynx normal Ears: + hearing impairment (moderate MORONGO) Neck: normal visual inspection (surgical scar from CEA) Respiratory: + labored breathing; + not able to speak in complete sentence Auscultation: + diminished lung sounds, + crackles and + wheezes Cardiovascular: Rate/Rhythm: regular rate and regular rhythm Vessels: femoral pulses present, posterior tibial pulses present (easily dopplerable), dorsalis pedis pulses present (easily dopplerable), brachial pulses present and radial pulses present; + abnormal peripheral pulses Extremities: normal capillary refill and + edema (mild edema RLE) Gastrointestinal (Abdomen): normal bowel sounds, soft, nontender, no hepatosplenomegaly Musculoskeletal: no cyanosis or clubbing, extremities motor strength 5/5 Skin: + wound (R anterolateral +slough no odor minimal local erythema and tender granulati) Neurologic: moves all extremities and awake; no focal motor deficits and not confused Psychiatric: A+Ox3, euthymic affect Results & Data Vital Signs (Past 12 Hours) Vital Signs Temp Pulse Resp BP Pulse Ox 01/09/20 07:18 77 18 98 01/09/20 07:11 37 C 80 20 172/79 H 98 01/09/20 00:04 37.2 C 77 22 156/52 H 98
--- NOTE | 2020-01-09 15:40 | Ultrasound Report ---
US carotid doppler BI HISTORY: Mental status change HENRY, hx CEA COMPARISON: None. TECHNIQUE: Real-time, grayscale, and color Doppler sonography of the carotid arteries was performed. Imaging reviewed in the transverse and longitudinal planes. All measurements were calculated based on NASCET criteria. FINDINGS: Antegrade flow is seen in the bilateral vertebral arteries. The brachial pressures are hemodynamically similar. Considerable plaque formation bilaterally The peak systolic velocity within the right ICA is 133. The right systolic ratio is 1.9. The peak systolic velocity within the left ICA is 114. The left systolic ratio is 1.2. IMPRESSION: 1. Considerable plaque formation bilaterally. 2. 40% narrowing proximal right internal carotid artery. 3. No significant stenosis of the left carotid system. 4. 90+ stenosis right external carotid artery with 60-70% stenosis left external carotid artery ACT 112: Negative or not required by law. The above report was generated using voice recognition software. It may contain grammatical, syntax or spelling errors. Electronically signed by: Julio Cesar Valdivia M.D. 01/09/2020 3:38 PM
--- NOTE | 2020-01-09 16:08 | Ultrasound Report ---
US arterial duplex LE LT CLINICAL HISTORY: PAD, hx femoral art aneurysm COMPARISON STUDY: December 2012 FINDINGS: The patient was unable to tolerate ankle brachial indices. Upon performing this portion of the study, the patient requested the examination be terminated. There is a high velocity jet within the left common femoral artery indicative of a hemodynamically si gnificant stenosis. There is monophasic flow within the common femoral artery distal to the stenosis. The left superficial femoral artery is occluded, with distal reconstitution. The popliteal artery which demonstrates monophasic flow. There is monophasic flow within the anterior tibial posterior tibial and peroneal arteries. There is a patent left aorta iliac graft. There is a 2.0 cm common femoral artery junction aneurysm. IMPRESSION: 1. 2 cm aneurysm at the junction of the left external iliac/common femoral artery 2. Hemodynamically significant left common femoral artery stenosis 3. Left superficial femoral artery occlusion with distal reconstitution ACT 112: Negative or not required by law. Electronically signed by: Cole Ro M.D. 01/09/2020 4:07 PM
[2020-01-09] MEDS: MIRTAZAPINE TAB 15 MG TAB PO SCH (20:28)
--- NOTE | 2020-01-09 23:29 | Hospitalist Progress Note ---
Date of Service January 09, 2020 Assessment & Plan (1) Fall: Fell at home. Fall probably multifactorial, including general debilitation. CT head did not show any acute findings. X-rays of pelvis and shoulder did not show any fractures. PT / OT. Fall precautions. (2) Traumatic open wound of right lower leg: Recent trauma to right leg with hematoma and open wound. Has been followed by Wound Clinic. Admitted 12/24 - 12/30 with apparent sepsis secondary to wound infection. Treated with course of daptomycin and aztreonam. Seen by Wound Care Team. Wound VAC discontinued. Continue local wound care. Wound slow to heal. Vascular Surgery consulted re: peripheral vascular disease. (3) CAD (coronary artery disease): No anginal symptoms. Continue aspirin, metoprolol, statin. (4) CHF (congestive heart failure): History of chronic CHF. LVEF in the 40's at one time with follow-up LVEF improved. Echocardiograms also demonstrated diastolic dysfunction. 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 No ANGEL or ARB due to CKD. Continue metoprolol succinate and HCTZ. (5) HTN (hypertension): Hemodynamically stable. Continue HCTZ and metoprolol. (6) Chronic hypoxemic respiratory failure: Chronic hypoxic resp failure secondary to COPD. Continue supplemental O2. (7) COPD, severe: Pulmonary status stable. Continue O2 + usual inhalers. (8) Stage III chronic kidney disease: CKD stage III-IV. Creatinine yesterday = 1.32. Follow. (9) DM type 2 (diabetes mellitus, type 2): Severe hypoglycemia 12/31 and 01/01 with blood sugars in 60's. Was taking glipizide and linagliptin at home. Hgb A1c = 6.1 in clinic on 12/21/19. PO intake not good at home. Tight control not indicated given advanced age and comorbidities. Holding home meds. NovoLog coverage PRN. FBS today = 100. Consider continuing linagliptin but stopping glipizide at time of discharge. (10) Hypoglycemia: Blood sugars in 60's on 12/31 and 01/01. Poor PO intake. Glipizide and linagliptin held. Hypoglycemia resolved. (11) Anemia: Chronic anemia with baseline Hgb 9-10 over past few years. Hgb 8.3 on 12/24 (during last admission). Received 1 unit pRBC's. Hgb 10.0 on 01/04. Follow. (12) Malnutrition: Wt 40.2 kg, BMI 17. Seen by Nutrition. Supplements recommended. (13) Calcific tendinitis of left shoulder: Complained of left shoulder pain. Limited ROM. X-ray showed calcific tendinopathy, no fractures. ROM exercises. Follow-up with Ortho if no improvement. (14) DVT prophylaxis: SQ heparin. Ambulate. (15) Discharge planning issues: Anticipated need for skilled care. Family Medicine follow-up with Dr. Baumann. Admission and Anticipated Discharge Date Admission Date: January 01, 2020 Subjective Recheck for multiple problems. Patient seen in their room around 1700. Feels well. No fever. Less swelling of left hand. No pain. Review of Systems: Constitutional- no fever. Cardiac- no chest pain. Pulmonary- rare cough; no SOB. GI- no nausea, vomiting, diarrhea, melena, hematochezia. - no urinary symptoms. Otherwise, as noted above. Physical Exam Constitutional: no acute distress Respiratory: no respiratory distress Auscultation: lungs clear to auscultation bilaterally Cardiovascular: Rate/Rhythm: regular rate and regular rhythm Heart Sounds: no gallop Vessels: no JVD Extremities: + edema (trace pretibial); no calf tenderness Gastrointestinal (Abdomen): normal bowel sounds, soft, nontender, no hepatosplenomegaly Musculoskeletal: Extremities: no cyanosis Shoulder: + limited ROM (left shoulder) Skin: no rashes, warm and dry + wound (right leg bandaged) Psychiatric: Orientation: alert Results & Data Results & Data ([facility]) Vital Signs (Past 12 Hours) Vital Signs Temp Pulse Resp BP Pulse Ox 01/09/20 19:00 84 20 96 01/09/20 16:03 83 20 97 01/09/20 15:50 37 C 85 18 152/80 H 98 01/09/20 12:05 76 16 98 Laboratory Results 01/05/20 05:37 01/08/20 05:33 (1) Traumatic open wound of right lower leg Encounter type: initial encounter Qualified Code(s): S81.801A - Unspecified open wound, right lower leg, initial encounter
[2020-01-10] MEDS: ACETAMINOPHEN 500 MG TAB PO SCH ×3 (05:18→21:16)
[2020-01-10 05:59] LABS: Hematocrit (blood only) 25.9 % (37-47); Hemoglobin 8.2 g/dL (12.0-16.0); Mean Corpuscular Hemoglobin 31.3 pg (25-34); Mean Corpuscular Hgb Conc 31.7 g/dL (32-36); Mean Corpuscular Volume 98.9 fL (80-100); Mean Platelet Volume 10.3 fL (7.4-10.4); Platelet Count 220 K/uL (130-400); RDW Coefficient of Variation 15.7 % (11.5-14.5); RDW Standard Deviation 57.1 fL (36.4-46.3); Red Blood Count 2.62 M/uL (4.2-5.4); White Blood Count 4.33 K/uL (4.8-10.8)
[2020-01-10 06:22] LABS: BUN Creatinine Ratio 37.9 (10-20); Calcium 8.7 mg/dl (8.5-10.1); Creatinine Clr Calc Pharmacy 19.4 ml/min; Est GFR (African American) 39.4; Potassium 4.4 mmol/L (3.5-5.1)
[2020-01-10] MEDS: ALBUTEROL HFA 8 GM INHALER INH SCH ×4 (07:31→19:24)
[2020-01-10] MEDS: IPRATROPIUM BROMIDE HFA INHALER INH SCH ×4 (07:31→19:25)
[2020-01-10] MEDS: FLUTICASONE/VILANTEROL 100/25MCG 14 PUFFS/INHALER INH SCH (09:02)
[2020-01-10] MEDS: ATORVASTATIN 40 MG TAB PO SCH (09:03)
[2020-01-10] MEDS: CLOPIDOGREL BISULFATE 75 MG TAB PO SCH (09:04)
[2020-01-10] MEDS: METOPROLOL SUCC 50MG EXT REL TAB PO SCH (09:04)
[2020-01-10] MEDS: FERROUS SULFATE 325 MG TAB PO SCH (09:04)
[2020-01-10] MEDS: PANTOprazole 40 MG TAB PO SCH (09:05)
[2020-01-10] MEDS: COLLAGENASE OINT 30 GM TUBE EXT SCH (09:05)
[2020-01-10] MEDS: INSULIN ASPART 100 UNITS/ML 3 ML PEN SC SCH ×4 (09:09→21:17)
[2020-01-10] MEDS: HEPARIN SOD 5,000 UNIT/0.5 ML VIAL SQ SCH ×2 (09:10→21:17)
[2020-01-10] MEDS: MIRTAZAPINE TAB 15 MG TAB PO SCH (21:16)
--- NOTE | 2020-01-10 23:35 | Hospitalist Progress Note ---
Date of Service January 10, 2020 Assessment & Plan (1) Fall: Fell at home. Fall probably multifactorial, including general debilitation. CT head did not show any acute findings. X-rays of pelvis and shoulder did not show any fractures. PT / OT. Fall precautions. (2) Traumatic open wound of right lower leg: Recent trauma to right leg with hematoma and open wound. Has been followed by [facility]. Admitted 12/24 - 12/30 with apparent sepsis secondary to wound infection. Treated with course of daptomycin and aztreonam. Seen by Wound Care Team. Wound VAC discontinued. Continue local wound care. Wound slow to heal. Vascular Surgery consulted re: peripheral vascular disease. (3) CAD (coronary artery disease): No anginal symptoms. Continue aspirin, metoprolol, statin. (4) CHF (congestive heart failure): History of chronic CHF. LVEF in the 40's at one time with follow-up LVEF improved. Echocardiograms also demonstrated diastolic dysfunction. 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 No ANGEL or ARB due to CKD. Hold HCTZ because of elevated BUN / creatinine. Continue metoprolol succinate. (5) HTN (hypertension): Hemodynamically stable. Hold HCTZ because of elevated BUN / creatinine. Continue metoprolol succinate. (6) Chronic hypoxemic respiratory failure: Chronic hypoxic resp failure secondary to COPD. Continue supplemental O2. (7) COPD, severe: Pulmonary status stable. Continue O2 + usual inhalers. (8) Stage III chronic kidney disease: CKD stage III-IV. Creatinine yesterday = 1.44. Follow. Follow. (9) DM type 2 (diabetes mellitus, type 2): Severe hypoglycemia 12/31 and 01/01 with blood sugars in 60's. Was taking glipizide and linagliptin at home. Hgb A1c = 6.1 in clinic on 12/21/19. PO intake not good at home. Tight control not indicated given advanced age and comorbidities. Holding home meds. NovoLog coverage PRN. FBS today = 132. Consider continuing linagliptin but stopping glipizide at time of discharge. (10) Hypoglycemia: Blood sugars in 60's on 12/31 and 01/01. Poor PO intake. Glipizide and linagliptin held. Hypoglycemia resolved. (11) Anemia: Chronic anemia with baseline Hgb 9-10 over past few years. Hgb 8.3 on 12/24 (during last admission). Received 1 unit pRBC's. Hgb 10.0 on 01/04. Hgb today = 8.2. Check stool for OB. Follow. (12) Malnutrition: Wt 40.2 kg, BMI 17. Seen by Nutrition. Supplements recommended. (13) Calcific tendinitis of left shoulder: Complained of left shoulder pain. Limited ROM. X-ray showed calcific tendinopathy, no fractures. ROM exercises. Follow-up with Ortho if no improvement. (14) DVT prophylaxis: SQ heparin. Ambulate. (15) Discharge planning issues: Anticipated need for skilled care. Family Medicine follow-up with Dr. Baumann. Admission and Anticipated Discharge Date Admission Date: January 01, 2020 Subjective Recheck for multiple problems. Patient seen in their room around 1400. Feels well. No fever. Occasional cough. No unusual dyspnea. Review of Systems: Constitutional- no fever. Cardiac- no chest pain. Pulmonary- as noted above. GI- no nausea, vomiting, diarrhea, melena, hematochezia. - no urinary symptoms. Otherwise, as noted above. Physical Exam Constitutional: no acute distress Respiratory: no respiratory distress Auscultation: + wheezes (diffuse, mild) Cardiovascular: Rate/Rhythm: regular rate and regular rhythm Heart Sounds: no gallop Vessels: no JVD Extremities: + edema (trace pretibial); no calf tenderness Gastrointestinal (Abdomen): normal bowel sounds, soft, nontender, no hepatosplenomegaly Musculoskeletal: Extremities: no cyanosis Shoulder: + limited ROM (left shoulder) Skin: no rashes, warm and dry + wound (right leg bandaged) Psychiatric: Orientation: alert Results & Data Results & Data ([facility]) Vital Signs (Past 12 Hours) Vital Signs Temp Pulse Resp BP Pulse Ox 01/10/20 23:25 37.1 C 71 18 167/61 H 98 01/10/20 19:27 85 18 96 01/10/20 16:01 37.2 C 76 16 158/63 H 97 01/10/20 15:16 77 16 98 Laboratory Results 01/10/20 05:16 01/10/20 05:16 (1) Traumatic open wound of right lower leg Encounter type: initial encounter Qualified Code(s): S81.801A - Unspecified open wound, right lower leg, initial encounter
[2020-01-11] MEDS: ALBUT/IPRATROP 3MG/0.5MG NEB 3 ML VIAL INH PRN (03:54)
[2020-01-11] MEDS: ACETAMINOPHEN 500 MG TAB PO SCH ×3 (05:13→21:12)
[2020-01-11 05:31] LABS: Hematocrit (blood only) 27.6 % (37-47); Hemoglobin 8.8 g/dL (12.0-16.0); Mean Corpuscular Hemoglobin 32.2 pg (25-34); Mean Corpuscular Hgb Conc 31.9 g/dL (32-36); Mean Corpuscular Volume 101.1 fL (80-100); Mean Platelet Volume 10.1 fL (7.4-10.4); Platelet Count 250 K/uL (130-400); RDW Coefficient of Variation 16.1 % (11.5-14.5); RDW Standard Deviation 58.7 fL (36.4-46.3); Red Blood Count 2.73 M/uL (4.2-5.4); White Blood Count 4.63 K/uL (4.8-10.8)
[2020-01-11 06:07] LABS: BUN Creatinine Ratio 39.9 (10-20); Calcium 9.1 mg/dl (8.5-10.1); Creatinine Clr Calc Pharmacy 21.4 ml/min; Est GFR (African American) 44.1; Est GFR (Non-African American) 38.1; Potassium 4.2 mmol/L (3.5-5.1)
[2020-01-11 06:12] LABS: Ferritin 222.1 ng/ml (8-388)
[2020-01-11] MEDS: IPRATROPIUM BROMIDE HFA INHALER INH SCH ×4 (07:03→19:10)
[2020-01-11] MEDS: ALBUTEROL HFA 8 GM INHALER INH SCH ×4 (07:03→19:11)
[2020-01-11] MEDS: CLOPIDOGREL BISULFATE 75 MG TAB PO SCH (07:36)
[2020-01-11] MEDS: ATORVASTATIN 40 MG TAB PO SCH (07:36)
[2020-01-11] MEDS: METOPROLOL SUCC 50MG EXT REL TAB PO SCH (07:37)
[2020-01-11] MEDS: PANTOprazole 40 MG TAB PO SCH (07:37)
[2020-01-11] MEDS: FERROUS SULFATE 325 MG TAB PO SCH (07:37)
[2020-01-11 08:16] LABS: Folate (Folic Acid) 16.81 ng/ml (>5.38)
[2020-01-11] MEDS: INSULIN ASPART 100 UNITS/ML 3 ML PEN SC SCH ×4 (08:57→21:09)
[2020-01-11] MEDS: HEPARIN SOD 5,000 UNIT/0.5 ML VIAL SQ SCH ×2 (08:57→21:08)
[2020-01-11] MEDS: FLUTICASONE/VILANTEROL 100/25MCG 14 PUFFS/INHALER INH SCH (08:59)
[2020-01-11] MEDS: COLLAGENASE OINT 30 GM TUBE EXT SCH (09:00)
--- NOTE | 2020-01-11 19:59 | Hospitalist Progress Note ---
Date of Service January 11, 2020 Assessment & Plan (1) Fall: Fell at home. Fall probably multifactorial, including general debilitation. CT head did not show any acute findings. X-rays of pelvis and shoulder did not show any fractures. PT / OT. Fall precautions. (2) Traumatic open wound of right lower leg: Recent trauma to right leg with hematoma and open wound. Has been followed by Wound Clinic. Admitted 12/24 - 12/30 with apparent sepsis secondary to wound infection. Treated with course of daptomycin and aztreonam. Seen by Wound Care Team. Wound VAC discontinued. Continue local wound care. Wound slow to heal. Vascular Surgery consulted re: peripheral vascular disease. No need for vascular intervention at this time. (3) CAD (coronary artery disease): No anginal symptoms. Continue aspirin, metoprolol, statin. (4) CHF (congestive heart failure): History of chronic CHF. LVEF in the 40's at one time with follow-up LVEF improved. Echocardiograms also demonstrated diastolic dysfunction. 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 No ANGEL or ARB due to CKD. Hold HCTZ because of elevated BUN / creatinine. Continue metoprolol succinate. (5) HTN (hypertension): Hemodynamically stable. Hold HCTZ because of elevated BUN / creatinine. Continue metoprolol succinate. (6) Chronic hypoxemic respiratory failure: Chronic hypoxic resp failure secondary to COPD. Continue supplemental O2. (7) COPD, severe: Pulmonary status stable. Continue O2 + usual inhalers. (8) Stage III chronic kidney disease: CKD stage III-IV. Creatinine as high as 1.45. Holding HCTZ. Creatinine yesterday = 1.31. Follow. (9) DM type 2 (diabetes mellitus, type 2): Severe hypoglycemia 12/31 and 01/01 with blood sugars in 60's. Was taking glipizide and linagliptin at home. Hgb A1c = 6.1 in clinic on 12/21/19. PO intake not good at home. Tight control not indicated given advanced age and comorbidities. Holding home meds. NovoLog coverage PRN. FBS today = 91. Consider continuing linagliptin but stopping glipizide at time of discharge. (10) Hypoglycemia: Blood sugars in 60's on 12/31 and 01/01. Poor PO intake. Glipizide and linagliptin held. Hypoglycemia resolved. (11) Anemia: Chronic anemia with baseline Hgb 9-10 over past few years. Hgb 8.3 on 12/24 (during last admission). Received 1 unit pRBC's. Hgb 10.0 on 01/04. Anemia evaluation: Laboratory Tests 01/11/20 01/11/20 04:57 04:57 Iron 83 Transferrin 171 L Transferrin % Sat 34 Ferritin 222.1 Vitamin B12 641 Folate 16.81 Stool negative for OB 12/26/19 and 01/11/20. Hgb today = 8.8. Follow. (12) Malnutrition: Wt 40.2 kg, BMI 17. Seen by Nutrition. Supplements recommended. (13) Calcific tendinitis of left shoulder: Complained of left shoulder pain. Limited ROM. X-ray showed calcific tendinopathy, no fractures. ROM exercises. Follow-up with Ortho if no improvement. (14) DVT prophylaxis: SQ heparin. Ambulate. (15) Discharge planning issues: Functional status improved. Anticipated discharge to home with home health services. Family Medicine follow-up with Dr. Baumann. Follow-up with [facility]. Admission and Anticipated Discharge Date Admission Date: January 01, 2020 Subjective Recheck for multiple problems. Patient seen in their room around 1440. No fever. Rare cough. No unusual dyspnea. Ambulated in hallway with PT. Review of Systems: Constitutional- no fever. Cardiac- no chest pain. Pulmonary- as noted above. GI- no nausea, vomiting, diarrhea, melena, hematochezia. - no urinary symptoms. Otherwise, as noted above. Physical Exam Constitutional: no acute distress Respiratory: no respiratory distress Auscultation: + wheezes (diffuse, mild) Cardiovascular: Rate/Rhythm: regular rate and regular rhythm Heart Sounds: no gallop Vessels: no JVD Extremities: + edema (1+ pretibial); no calf tenderness Gastrointestinal (Abdomen): normal bowel sounds, soft, nontender, no hepatosplenomegaly Musculoskeletal: Extremities: no cyanosis Shoulder: + limited ROM (left shoulder) Skin: no rashes, warm and dry + wound (right leg bandaged) Psychiatric: Orientation: alert Results & Data Results & Data ([facility]) Vital Signs (Past 12 Hours) Vital Signs Temp Pulse Resp BP Pulse Ox 01/11/20 19:11 77 18 97 01/11/20 15:16 36.6 C 72 18 156/61 H 100 01/11/20 15:04 79 18 99 01/11/20 11:19 72 18 98 Laboratory Results 01/11/20 04:57 01/11/20 04:57 (1) Traumatic open wound of right lower leg Encounter type: initial encounter Qualified Code(s): S81.801A - Unspecified open wound, right lower leg, initial encounter
[2020-01-11] MEDS: MIRTAZAPINE TAB 15 MG TAB PO SCH (21:10)
[2020-01-12] MEDS: TRAMADOL HCL 50 MG TABLET PO PRN (03:16)
[2020-01-12] MEDS: ALBUT/IPRATROP 3MG/0.5MG NEB 3 ML VIAL INH PRN (03:27)
[2020-01-12] MEDS ORDERED: HydrALAZINE HCL 20 MG/ML VIAL IV ONE (04:00)
[2020-01-12] MEDS: ACETAMINOPHEN 500 MG TAB PO SCH ×3 (05:24→21:32)
[2020-01-12 05:57] LABS: Hematocrit (blood only) 27.4 % (37-47); Hemoglobin 8.5 g/dL (12.0-16.0); Mean Corpuscular Hemoglobin 31.3 pg (25-34); Mean Corpuscular Volume 100.7 fL (80-100); Mean Platelet Volume 10.3 fL (7.4-10.4); Platelet Count 256 K/uL (130-400); RDW Coefficient of Variation 16.1 % (11.5-14.5); RDW Standard Deviation 58.8 fL (36.4-46.3); Red Blood Count 2.72 M/uL (4.2-5.4); White Blood Count 5.19 K/uL (4.8-10.8)
[2020-01-12 06:30] LABS: BUN Creatinine Ratio 42.7 (10-20); Calcium 9.5 mg/dl (8.5-10.1); Creatinine Clr Calc Pharmacy 23.5 ml/min; Est GFR (African American) 49.6; Est GFR (Non-African American) 42.8; Potassium 4.3 mmol/L (3.5-5.1)
--- NOTE | 2020-01-12 06:54 | XRay Report ---
XR chest 1V portable CLINICAL HISTORY: sob dyspnea COMPARISON STUDY: 12/31/2019 FINDINGS: Small left pleural effusion diminished from the prior study. Lungs otherwise remain clear. There is a component of emphysematous change. IMPRESSION: Improving left pleural effusion. Stable emphysematous change. ACT 112: Negative or not required by law. The above report was generated using voice recognition software. It may contain grammatical, syntax or spelling errors. Electronically signed by: Julio Cesar Valdivia M.D. 01/12/2020 6:53 AM
[2020-01-12] MEDS: ALBUTEROL HFA 8 GM INHALER INH SCH ×4 (07:03→19:12)
[2020-01-12] MEDS: IPRATROPIUM BROMIDE HFA INHALER INH SCH ×4 (07:03→19:12)
[2020-01-12] MEDS: HEPARIN SOD 5,000 UNIT/0.5 ML VIAL SQ SCH ×2 (08:45→21:30)
[2020-01-12] MEDS: INSULIN ASPART 100 UNITS/ML 3 ML PEN SC SCH ×4 (08:45→21:31)
[2020-01-12] MEDS: FLUTICASONE/VILANTEROL 100/25MCG 14 PUFFS/INHALER INH SCH (08:49)
[2020-01-12] MEDS: ATORVASTATIN 40 MG TAB PO SCH (08:50)
[2020-01-12] MEDS: CLOPIDOGREL BISULFATE 75 MG TAB PO SCH (08:50)
[2020-01-12] MEDS: FERROUS SULFATE 325 MG TAB PO SCH (08:50)
[2020-01-12] MEDS: METOPROLOL SUCC 50MG EXT REL TAB PO SCH (08:50)
[2020-01-12] MEDS: PANTOprazole 40 MG TAB PO SCH (08:50)
[2020-01-12] MEDS: predniSONE 20 MG TAB PO SCH (11:20)
[2020-01-12] MEDS: DOXYCYCLINE HYCLATE 100 MG CAP PO SCH ×2 (11:20→21:29)
[2020-01-12] MEDS: COLLAGENASE OINT 30 GM TUBE EXT SCH (11:20)
[2020-01-12] MEDS: hydroCHLOROthiazide 25 MG TAB PO SCH (12:48)
--- NOTE | 2020-01-12 18:30 | Hospitalist Progress Note ---
Date of Service January 12, 2020 Assessment & Plan (1) Fall: Fell at home. Fall probably multifactorial, including general debilitation. CT head did not show any acute findings. X-rays of pelvis and shoulder did not show any fractures. PT / OT. Fall precautions. (2) Traumatic open wound of right lower leg: Recent trauma to right leg with hematoma and open wound. Has been followed by Wound Clinic. Admitted 12/24 - 12/30 with apparent sepsis secondary to wound infection. Treated with course of daptomycin and aztreonam. Seen by Wound Care Team. Wound VAC discontinued. Continue local wound care. Wound slow to heal. Vascular Surgery consulted re: peripheral vascular disease. No need for vascular intervention at this time. (3) CAD (coronary artery disease): No anginal symptoms. Continue aspirin, metoprolol, statin. (4) CHF (congestive heart failure): History of chronic CHF. LVEF in the 40's at one time with follow-up LVEF improved. Echocardiograms also demonstrated diastolic dysfunction. 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 No ANGEL or ARB due to CKD. Holding HCTZ because of elevated BUN / creatinine. No apparent vascular congestion on today's chest x-ray, but BNP elevated and more SOB. Resume HCTZ. Continue metoprolol succinate. (5) HTN (hypertension): Hemodynamically stable. Continue HCTZ + metoprolol succinate. (6) Chronic hypoxemic respiratory failure: Chronic hypoxic resp failure secondary to COPD. Continue supplemental O2. (7) COPD, severe: More SOB, occasional cough. No fever. No leukocytosis. No infiltrates on chest x-ray. ? bronchitis. Rx with doxy and prednisone. Continue O2 + usual inhalers. (8) Stage III chronic kidney disease: CKD stage III-IV. Creatinine as high as 1.45. Holding HCTZ. Creatinine yesterday = 1.19. Resume HCTZ because of worsening SOB. Follow. (9) DM type 2 (diabetes mellitus, type 2): Severe hypoglycemia 12/31 and 01/01 with blood sugars in 60's. Was taking glipizide and linagliptin at home. Hgb A1c = 6.1 in clinic on 12/21/19. PO intake not good at home. Tight control not indicated given advanced age and comorbidities. Holding home meds. NovoLog coverage PRN. FBS today = 90. Consider continuing linagliptin but stopping glipizide at time of discharge. (10) Hypoglycemia: Blood sugars in 60's on 12/31 and 01/01. Poor PO intake. Glipizide and linagliptin held. Hypoglycemia resolved. (11) Anemia: Chronic anemia with baseline Hgb 9-10 over past few years. Hgb 8.3 on 12/24 (during last admission). Received 1 unit pRBC's. Hgb 10.0 on 01/04. Anemia evaluation: Laboratory Tests 01/11/20 01/11/20 04:57 04:57 Iron 83 Transferrin 171 L Transferrin % Sat 34 Ferritin 222.1 Vitamin B12 641 Folate 16.81 Stool negative for OB 12/26/19 and 01/11/20. Hgb today = 8.5. Follow. (12) Malnutrition: Wt 40.2 kg, BMI 17. Seen by Nutrition. Supplements recommended. (13) Calcific tendinitis of left shoulder: Complained of left shoulder pain. Limited ROM. X-ray showed calcific tendinopathy, no fractures. ROM exercises. Follow-up with Ortho if no improvement. (14) DVT prophylaxis: SQ heparin. Ambulate. (15) Discharge planning issues: Functional status improved. Anticipated discharge to home with home health services. Family Medicine follow-up with Dr. Baumann. Follow-up with [facility]. Admission and Anticipated Discharge Date Admission Date: January 01, 2020 Subjective Recheck for multiple problems. Patient seen in their room around 0940. SOB during the night. Neb helped. Chest x-ray did not show any acute findings. No fever. Rare cough productive of green sputum. Review of Systems: Constitutional- no fever. Cardiac- no chest pain. Pulmonary- as noted above. GI- no nausea, vomiting, diarrhea, melena, hematochezia. - no urinary symptoms. Otherwise, as noted above. Physical Exam Constitutional: no acute distress Respiratory: no respiratory distress Auscultation: + rhonchi (few scatter ed) and + wheezes (diffuse, mild) Cardiovascular: Rate/Rhythm: regular rate and regular rhythm Heart Sounds: no gallop Vessels: no JVD Extremities: + edema (1+ pretibial); no calf tenderness Gastrointestinal (Abdomen): normal bowel sounds, soft, nontender, no hepatosplenomegaly Musculoskeletal: Extremities: no cyanosis Shoulder: + limited ROM (left shoulder) Skin: no rashes, warm and dry + wound (right leg bandaged) Psychiatric: Orientation: alert Results & Data Results & Data ([facility]) Vital Signs (Past 12 Hours) Vital Signs Temp Pulse Resp BP Pulse Ox 01/12/20 15:48 37.1 C 83 16 183/66 H 97 01/12/20 14:57 65 20 96 01/12/20 10:56 74 21 98 01/12/20 08:00 36.5 C 81 16 149/62 H 99 01/12/20 07:03 82 19 98 Laboratory Results Laboratory Results - last 24 hr 01/11/20 01/11/20 01/12/20 18:45 20:32 03:26 WBC RBC Hgb Hct MCV MCH MCHC RDW Std Deviation RDW Coeff of Leslie Plt Count MPV Sodium Potassium Chloride Carbon Dioxide Anion Gap BUN Creatinine Est Cr Clr Drug Dosing Est GFR ( Amer) Est GFR (Non-Af Amer) BUN/Creatinine Ratio Glucose POC Glucose 102 H 122 H Calcium NT-Pro-B Natriuret Pep Stool Occult Bld Scrn Negative 01/12/20 01/12/20 01/12/20 05:13 05:13 05:13 WBC 5.19 RBC 2.72 L Hgb 8.5 L Hct 27.4 L MCV 100.7 H MCH 31.3 MCHC 31.0 L RDW Std Deviation 58.8 H RDW Coeff of Leslie 16.1 H Plt Count 256 MPV 10.3 Sodium 145 Potassium 4.3 Chloride 112 H Carbon Dioxide 28 Anion Gap 5.0 BUN 51 H Creatinine 1.19 Est Cr Clr Drug Dosing 23.5 Est GFR ( Amer) 49.6 Est GFR (Non-Af Amer) 42.8 BUN/Creatinine Ratio 42.7 H Glucose 90 POC Glucose Calcium 9.5 NT-Pro-B Natriuret Pep 8350 H Stool Occult Bld Scrn 01/12/20 01/12/20 01/12/20 08:26 12:21 17:01 WBC RBC Hgb Hct MCV MCH MCHC RDW Std Deviation RDW Coeff of Leslie Plt Count MPV Sodium Potassium Chloride Carbon Dioxide Anion Gap BUN Creatinine Est Cr Clr Drug Dosing Est GFR ( Amer) Est GFR (Non-Af Amer) BUN/Creatinine Ratio Glucose POC Glucose 90 131 H 203 H Calcium NT-Pro-B Natriuret Pep Stool Occult Bld Scrn Diagnostic Findings PORTABLE CHEST X-RAY Reviewed by the undersigned and formally interpreted by Radiology: FINDINGS: Small left pleural effusion diminished from the prior study. Lungs otherwise remain clear. There is a component of emphysematous change. IMPRESSION: Improving left pleural effusion. Stable emphysematous change. Electronically signed by: Julio Cesar Valdivia M.D. 01/12/2020 6:53 AM (1) Traumatic open wound of right lower leg Encounter type: initial encounter Qualified Code(s): S81.801A - Unspecified open wound, right lower leg, initial encounter
[2020-01-12] MEDS: MIRTAZAPINE TAB 15 MG TAB PO SCH (21:30)
[2020-01-13] MEDS ORDERED: INSULIN ASPART 100 UNITS/ML 3 ML PEN SC STA (03:07)
[2020-01-13] MEDS: ACETAMINOPHEN 500 MG TAB PO SCH ×3 (05:23→20:23)
[2020-01-13 06:55] LABS: BUN Creatinine Ratio 38.3 (10-20); Calcium 9.3 mg/dl (8.5-10.1); Est GFR (Non-African American) 33.7; Potassium 4.3 mmol/L (3.5-5.1)
[2020-01-13] MEDS: ALBUTEROL HFA 8 GM INHALER INH SCH ×4 (07:46→19:19)
[2020-01-13] MEDS: IPRATROPIUM BROMIDE HFA INHALER INH SCH ×4 (07:46→19:20)
[2020-01-13] MEDS: FLUTICASONE/VILANTEROL 100/25MCG 14 PUFFS/INHALER INH SCH (08:49)
[2020-01-13] MEDS: ATORVASTATIN 40 MG TAB PO SCH (08:51)
[2020-01-13] MEDS: INSULIN ASPART 100 UNITS/ML 3 ML PEN SC SCH ×4 (08:51→20:21)
[2020-01-13] MEDS: CLOPIDOGREL BISULFATE 75 MG TAB PO SCH (08:51)
[2020-01-13] MEDS: PANTOprazole 40 MG TAB PO SCH (08:51)
[2020-01-13] MEDS: hydroCHLOROthiazide 25 MG TAB PO SCH (08:51)
[2020-01-13] MEDS: METOPROLOL SUCC 50MG EXT REL TAB PO SCH (08:51)
[2020-01-13] MEDS: predniSONE 20 MG TAB PO SCH (08:51)
[2020-01-13] MEDS: DOXYCYCLINE HYCLATE 100 MG CAP PO SCH ×2 (08:51→20:16)
[2020-01-13] MEDS: HEPARIN SOD 5,000 UNIT/0.5 ML VIAL SQ SCH ×2 (08:52→20:15)
[2020-01-13] MEDS: COLLAGENASE OINT 30 GM TUBE EXT SCH (08:55)
--- NOTE | 2020-01-13 10:21 | Hospitalist Progress Note ---
Date of Service January 13, 2020 Assessment & Plan (1) Fall: Fell at home. Fall probably multifactorial, including general debilitation. CT head did not show any acute findings. X-rays of pelvis and shoulder did not show any fractures. PT / OT. Fall precautions. (2) Traumatic open wound of right lower leg: Recent trauma to right leg with hematoma and open wound. Has been followed by Wound Clinic. Admitted 12/24 - 12/30 with apparent sepsis secondary to wound infection. Treated with course of daptomycin and aztreonam. Seen by Wound Care Team. Wound VAC discontinued. Continue local wound care. Wound slow to heal. Vascular Surgery consulted re: peripheral vascular disease. No need for vascular intervention at this time. (3) CAD (coronary artery disease): No anginal symptoms. Continue aspirin, metoprolol, statin. (4) CHF (congestive heart failure): History of chronic CHF. LVEF in the 40's at one time with follow-up LVEF improved. Echocardiograms also demonstrated diastolic dysfunction. 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 No ANGEL or ARB due to CKD. Held HCTZ because of elevated BUN / creatinine. No apparent vascular congestion on today's chest x-ray, but BNP elevated and more SOB. Resumed HCTZ 01/11. Continue metoprolol succinate. (5) HTN (hypertension): Hemodynamically stable. Continue HCTZ + metoprolol succinate. (6) Chronic hypoxemic respiratory failure: Chronic hypoxic resp failure secondary to COPD. Continue supplemental O2. (7) COPD, severe: More SOB, occasional cough. No fever. No leukocytosis. No infiltrates on chest x-ray. ? bronchitis. Receiving doxycycline and low dose prednisone. Continue O2 + usual inhalers. (8) Stage III chronic kidney disease: CKD stage III-IV. Creatinine as high as 1.45. Held HCTZ, but resumed it 01/11 because of worsening SOB. Creatinine today 1.45. Follow. (9) DM type 2 (diabetes mellitus, type 2): Severe hypoglycemia 12/31 and 01/01 with blood sugars in 60's. Was taking glipizide and linagliptin at home. Hgb A1c = 6.1 in clinic on 12/21/19. PO intake not good at home. Tight control not indicated given advanced age and comorbidities. Holding home meds. NovoLog coverage PRN. Blood sugars running higher now because of prednisone. Try to keep dose low and limit duration. FBS today = 152. Consider continuing linagliptin but stopping glipizide at time of discharge. (10) Hypoglycemia: Blood sugars in 60's on 12/31 and 01/01. Poor PO intake. Glipizide and linagliptin held. Hypoglycemia resolved. (11) Anemia: Chronic anemia with baseline Hgb 9-10 over past few years. Hgb 8.3 on 12/24 (during last admission). Received 1 unit pRBC's. Hgb 10.0 on 01/04. Anemia evaluation: Laboratory Tests 01/11/20 01/11/20 04:57 04:57 Iron 83 Transferrin 171 L Transferrin % Sat 34 Ferritin 222.1 Vitamin B12 641 Folate 16.81 Stool negative for OB 12/26/19 and 01/11/20. Hgb yesterday = 8.5. Follow. (12) Malnutrition: Wt 40.2 kg, BMI 17. Seen by Nutrition. Supplements recommended. (13) Calcific tendinitis of left shoulder: Complained of left shoulder pain. Limited ROM. X-ray showed calcific tendinopathy, no fractures. ROM exercises. Follow-up with Ortho if no improvement. (14) DVT prophylaxis: SQ heparin. Ambulate. (15) Discharge planning issues: Functional status improved. Anticipated discharge to home with home health services. Family Medicine follow-up with Dr. Baumann. Follow-up with [facility]. Admission and Anticipated Discharge Date Admission Date: January 01, 2020 Subjective Recheck for multiple problems. Patient seen in their room around 0930. Feels better today. No fever. Cough improved. Less SOB. Review of Systems: Constitutional- no fever. Cardiac- no chest pain. Pulmonary- as noted above. GI- no nausea, vomiting, diarrhea, melena, hematochezia. - no urinary symptoms. Otherwise, as noted above. Physical Exam Constitutional: no acute distress Respiratory: no respiratory distress Auscultation: + rhonchi (few scattered) and + wheezes (diffuse, mild) Cardiovascular: Rate/Rhythm: regular rate and regular rhythm Heart Sounds: no gallop Vessels: no JVD Extremities: + edema (1+ pretibial); no calf tenderness Gastrointestinal (Abdomen): normal bowel sounds, soft, nontender, no hepatosplenomegaly Musculoskeletal: Extremities: no cyanosis Shoulder: + limited ROM (left shoulder) Skin: no rashes, warm and dry + wound (right leg bandaged) Psychiatric: Orientation: alert Results & Data Results & Data ([facility]) Vital Signs (Past 12 Hours) Vital Signs Temp Pulse Resp BP Pulse Ox 01/13/20 08:06 37.1 C 63 16 164/55 H 98 01/13/20 07:49 75 18 96 01/12/20 22:50 37.2 C 94 H 18 158/57 H 94 Laboratory Results 01/13/20 06:05 (1) Traumatic open wound of right lower leg Encounter type: initial encounter Qualified Code(s): S81.801A - Unspecified open wound, right lower leg, initial encounter
[2020-01-13] MEDS: MIRTAZAPINE TAB 15 MG TAB PO SCH (20:14)
[2020-01-13] MEDS: INSULIN GLARGINE SOLOSTAR 100 UNITS/ML 3 ML PEN SC SCH (20:24)
[2020-01-13] MEDS: ALBUT/IPRATROP 3MG/0.5MG NEB 3 ML VIAL INH PRN (23:50)
[2020-01-14 05:31] LABS: Hematocrit (blood only) 23.3 % (37-47); Hemoglobin 7.9 g/dL (12.0-16.0)
[2020-01-14 05:53] LABS: BUN Creatinine Ratio 35.7 (10-20); Calcium 9.3 mg/dl (8.5-10.1); Creatinine Clr Calc Pharmacy 15.4 ml/min; Est GFR (African American) 30.3; Est GFR (Non-African American) 26.1; Potassium 4.1 mmol/L (3.5-5.1)
[2020-01-14] MEDS: ACETAMINOPHEN 500 MG TAB PO SCH ×3 (06:11→22:01)
[2020-01-14] MEDS: ALBUTEROL HFA 8 GM INHALER INH SCH ×4 (07:23→19:00)
[2020-01-14] MEDS: IPRATROPIUM BROMIDE HFA INHALER INH SCH ×4 (07:24→19:00)
[2020-01-14] MEDS: METOPROLOL SUCC 50MG EXT REL TAB PO SCH (08:14)
[2020-01-14] MEDS: CLOPIDOGREL BISULFATE 75 MG TAB PO SCH (09:20)
[2020-01-14] MEDS: PANTOprazole 40 MG TAB PO SCH (09:20)
[2020-01-14] MEDS: DOXYCYCLINE HYCLATE 100 MG CAP PO SCH ×2 (09:21→20:32)
[2020-01-14] MEDS: ATORVASTATIN 40 MG TAB PO SCH (09:21)
[2020-01-14] MEDS: COLLAGENASE OINT 30 GM TUBE EXT SCH (09:21)
[2020-01-14] MEDS: INSULIN ASPART 100 UNITS/ML 3 ML PEN SC SCH ×4 (09:24→20:39)
[2020-01-14] MEDS: HEPARIN SOD 5,000 UNIT/0.5 ML VIAL SQ SCH ×2 (09:24→20:37)
[2020-01-14] MEDS: FLUTICASONE/VILANTEROL 100/25MCG 14 PUFFS/INHALER INH SCH (10:51)
--- NOTE | 2020-01-14 15:34 | Hospitalist Progress Note ---
Date of Service January 14, 2020 Assessment & Plan (1) Fall: Fell at home. Fall probably multifactorial, including general debilitation. CT head did not show any acute findings. X-rays of pelvis and shoulder did not show any fractures. PT / OT. Fall precautions. (2) Traumatic open wound of right lower leg: Recent trauma to right leg with hematoma and open wound. Has been followed by Wound Clinic. Admitted 12/24 - 12/30 with apparent sepsis secondary to wound infection. Treated with course of daptomycin and aztreonam. Seen by Wound Care Team. Wound VAC discontinued. Continue local wound care. Wound slow to heal. Vascular Surgery consulted re: peripheral vascular disease. No need for vascular intervention at this time. (3) CAD (coronary artery disease): No anginal symptoms. Continue aspirin, metoprolol, statin. (4) CHF (congestive heart failure): History of chronic CHF. LVEF in the 40's at one time with follow-up LVEF improved. Echocardiograms also demonstrated diastolic dysfunction. 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 No ANGEL or ARB due to CKD. Held HCTZ because of elevated BUN / creatinine. No apparent vascular congestion on today's chest x-ray, but BNP elevated and more SOB. Resumed HCTZ 01/11, but BUN and creatinine rickie again. Hold HCTZ until renal function improves. Continue metoprolol succinate. (5) HTN (hypertension): Hemodynamically stable. Continue metoprolol succinate. (6) Chronic hypoxemic respiratory failure: Chronic hypoxic resp failure secondary to COPD. Continue supplemental O2. (7) COPD, severe: More SOB, occasional cough. No fever. No leukocytosis. No infiltrates on chest x-ray. ? bronchitis. Receiving doxycycline and low dose prednisone. Continue O2 + usual inhalers. (8) Stage III chronic kidney disease: CKD stage III-IV. Creatinine as high as 1.45. Held HCTZ, but resumed it 01/11 because of worsening SOB. Creatinine today 1.79. Hold HCTZ. Follow. (9) DM type 2 (diabetes mellitus, type 2): Severe hypoglycemia 12/31 and 01/01 with blood sugars in 60's. Was taking glipizide and linagliptin at home. Hgb A1c = 6.1 in clinic on 12/21/19. PO intake not good at home. Tight control not indicated given advanced age and comorbidities. Holding home meds. NovoLog coverage PRN. Blood sugars running > 300 yesterday because of prednisone. Try to keep dose low and limit duration. FBS today = 117. Consider continuing linagliptin but stopping glipizide at time of discharge. (10) Hypoglycemia: Blood sugars in 60's on 12/31 and 01/01. Poor PO intake. Glipizide and linagliptin held. Hypoglycemia resolved. (11) Anemia: Chronic anemia with baseline Hgb 9-10 over past few years. Hgb 8.3 on 12/24 (during last admission). Received 1 unit pRBC's. Hgb 10.0 on 01/04. Anemia evaluation: Laboratory Tests 01/11/20 01/11/20 04:57 04:57 Iron 83 Transferrin 171 L Transferrin % Sat 34 Ferritin 222.1 Vitamin B12 641 Folate 16.81 Stool negative for OB 12/26/19 and 01/11/20. Hgb today = 7.9. Follow. Consider transfusion if repeat Hgb tomorrow < 8. (12) Malnutrition: Wt 40.2 kg, BMI 17. Seen by Nutrition. Supplements recommended. PO intake improved. (13) Calcific tendinitis of left shoulder: Complained of left shoulder pain. Limited ROM. X-ray showed calcific tendinopathy, no fractures. ROM exercises. Follow-up with Ortho if no improvement. (14) DVT prophylaxis: SQ heparin. Ambulate. (15) Discharge planning issues: Functional status improved. Anticipated discharge to home with home health services when medically stable. Family Medicine follow-up with Dr. Baumann. Follow-up with [facility]. Admission and Anticipated Discharge Date Admission Date: January 01, 2020 Subjective Recheck for multiple problems. Patient seen in their room around 0930. Congested cough. Less SOB. No fever. Review of Systems: Constitutional- no fever. Cardiac- no chest pain. Pulmonary- as noted above. GI- no nausea, vomiting, diarrhea, melena, hematochezia. - no urinary symptoms. Otherwise, as noted above. Physical Exam Constitutional: no acute distress Respiratory: no respiratory distress Auscultation: + rhonchi (few scatte red) and + wheezes (diffuse, mild) Cardiovascular: Rate/Rhythm: regular rate and regular rhythm Heart Sounds: no gallop Vessels: no JVD Extremities: + edema (1+ pretibial); no calf tenderness Gastrointestinal (Abdomen): normal bowel sounds, soft, nontender, no hepatosplenomegaly Musculoskeletal: Extremities: no cyanosis Shoulder: + limited ROM (left shoulder) Skin: no rashes, warm and dry + wound (right leg bandaged) Psychiatric: Orientation: alert Results & Data Results & Data ([facility]) Vital Signs (Past 12 Hours) Vital Signs Temp Pulse Pulse Resp BP Pulse Ox 01/14/20 15:06 36.7 C 80 18 169/69 H 99 01/14/20 11:22 85 16 97 01/14/20 07:26 80 16 98 01/14/20 07:19 36.7 C 79 22 181/79 H 98 Laboratory Results 01/14/20 05:14 01/14/20 05:14 (1) Traumatic open wound of right lower leg Encounter type: initial encounter Qualified Code(s): S81.801A - Unspecified open wound, right lower leg, initial encounter
[2020-01-14] MEDS: MIRTAZAPINE TAB 15 MG TAB PO SCH (20:32)
[2020-01-14] MEDS: INSULIN GLARGINE SOLOSTAR 100 UNITS/ML 3 ML PEN SC SCH (20:37)
[2020-01-15] MEDS: ALBUT/IPRATROP 3MG/0.5MG NEB 3 ML VIAL INH PRN ×2 (03:55→22:55)
[2020-01-15] MEDS: ACETAMINOPHEN 500 MG TAB PO SCH ×3 (05:51→21:49)
[2020-01-15 05:58] LABS: Hematocrit (blood only) 27.6 % (37-47); Hemoglobin 8.9 g/dL (12.0-16.0); Mean Corpuscular Hgb Conc 32.2 g/dL (32-36); Mean Corpuscular Volume 99.3 fL (80-100); Mean Platelet Volume 9.5 fL (7.4-10.4); Platelet Count 325 K/uL (130-400); RDW Coefficient of Variation 16.1 % (11.5-14.5); RDW Standard Deviation 58.8 fL (36.4-46.3); Red Blood Count 2.78 M/uL (4.2-5.4); White Blood Count 6.92 K/uL (4.8-10.8)
[2020-01-15 06:34] LABS: BUN Creatinine Ratio 39.5 (10-20); Calcium 9.3 mg/dl (8.5-10.1); Est GFR (African American) 31.8; Est GFR (Non-African American) 27.4; Potassium 4.3 mmol/L (3.5-5.1)
[2020-01-15] MEDS: CARBOHYDRATES FOR HYPOGLYCEMIA PO PRN (06:39)
[2020-01-15] MEDS: IPRATROPIUM BROMIDE HFA INHALER INH SCH ×4 (06:45→19:11)
[2020-01-15] MEDS: ALBUTEROL HFA 8 GM INHALER INH SCH ×4 (06:46→19:10)
--- NOTE | 2020-01-15 07:49 | XRay Report ---
XR chest 1V portable CLINICAL HISTORY: cough, sob COMPARISON STUDY: Chest radiograph January 12, 2020. FINDINGS: There is no pneumothorax. A small left pleural effusion is unchanged. Left basilar airspace opacity with volume loss has increased. Cardiomediastinal silhouette is stable. There is no evidence for pulmonary edema. A vascular stent within the left neck is noted. IMPRESSION: Small left pleural effusion with increase in left basilar opacity with volume loss. This may reflect pneumonia or atelectasis. Radiographic follow-up is recommended. ACT 112: Negative or not required by law. Electronically signed by: Jean Paul Pagan M.D. 01/15/2020 7:47 AM
[2020-01-15] MEDS: METOPROLOL SUCC 50MG EXT REL TAB PO SCH (08:21)
[2020-01-15] MEDS: PANTOprazole 40 MG TAB PO SCH (09:16)
[2020-01-15] MEDS: ATORVASTATIN 40 MG TAB PO SCH (09:16)
[2020-01-15] MEDS: CLOPIDOGREL BISULFATE 75 MG TAB PO SCH (09:16)
[2020-01-15] MEDS: DOXYCYCLINE HYCLATE 100 MG CAP PO SCH ×2 (09:16→19:41)
[2020-01-15] MEDS: COLLAGENASE OINT 30 GM TUBE EXT SCH (09:17)
[2020-01-15] MEDS: FLUTICASONE/VILANTEROL 100/25MCG 14 PUFFS/INHALER INH SCH (09:17)
[2020-01-15] MEDS: INSULIN ASPART 100 UNITS/ML 3 ML PEN SC SCH ×4 (09:19→21:31)
[2020-01-15] MEDS: HEPARIN SOD 5,000 UNIT/0.5 ML VIAL SQ SCH ×2 (09:19→21:30)
[2020-01-15] MEDS: MIRTAZAPINE TAB 15 MG TAB PO SCH (19:40)
--- NOTE | 2020-01-15 19:57 | Hospitalist Progress Note ---
Date of Service January 15, 2020 Assessment & Plan (1) Fall: H/O Fall prior to admission Likely multifactorial CT head:No acute intracranial findings. No change in appearance of the brain. No calvarial fracture. Pelvic X ray:Degenerative change. No acute process. Left Shoulder X ray:No acute fractures. Suspected calcific tendinopathy PT / OT eval Fall precautions. (2) Traumatic open wound of right lower leg: Recent trauma to right leg with hematoma and open wound. Follows with Wound Clinic. Recently completed daptomycin and aztreonam course Continue wound care No plan for surgery as per Vascular surgery (3) CAD (coronary artery disease): Continue aspirin, metoprolol, statin. (4) CHF (congestive heart failure): H/O Chronic systolic/diastolic CHF. No ANGEL or ARB due to CKD. Held HCTZ for now Continue metoprolol Resume diuretics as able (5) HTN (hypertension): stable. Continue metoprolol (6) Chronic hypoxemic respiratory failure: Chronic hypoxic resp failure secondary to COPD. Continue supplemental O2. (7) COPD, severe: CXR:Small left pleural effusion with increase in left basilar opacity with volume loss. This may reflect pneumonia or atelectasis. Radiographic follow-up is recommended. Possible acute Bronchitis. Normal procalcitonin On doxycycline Continue Oxygen Nebs PRN (8) Stage III chronic kidney disease: CKD IV Baseline Cr ~ 2.0 as per prior Nephrology note Monitor renal function (9) DM type 2 (diabetes mellitus, type 2): Severe hypoglycemia on multiple occasions On glipizide and linagliptin at home. Hgb A1c: 6.1 on 12/21/19. Hold PO meds. Continue NovoLog while hospitalized Plan to Discontinue glipizide upon discharge as well (10) Hypoglycemia: as above (11) Anemia: Chronic anemia Baseline Hgb 9-10 S/P 1 unit pRBC's. FOBT negative Monitor H&H (12) Malnutrition: Wt 40.2 kg, BMI 17. Nutrition consulted Supplements recommended. (13) Calcific tendinitis of left shoulder: Reported left shoulder pain. X-ray showed calcific tendinopathy, no fractures. PT/OT Follow-up with Ortho as outpatient (14) DVT prophylaxis: SQ heparin (15) Discharge planning issues: Home with home health services when medically stable. Needs Follow-up with [facility]. Admission and Anticipated Discharge Date Admission Date: January 01, 2020 Subjective Patient is seen and examined at bedside Cough continues to improve Denies shortness of breath, dizziness, nausea, abdominal pain Offers no other complaints Renal function stable Review of Systems Review of Systems: All systems reviewed & are unremarkable except as noted in HPI & below Physical Exam Physical Exam: Physical Exam: Vitals signs as noted above General Appearance:Thin, Frail, no apparent distress Head: normocephalic, Atraumatic Eyes: normal inspection, EOMI Neck: supple, Trachea midline Respiratory/Chest: Decreased breath sounds, CTA, No accessory muscle use Cardiovascular: S1, S2, No murmur Abdomen/GI:Soft, Non tender, Bowel sounds present Extremities/Musculoskelatal:normal inspection, 1+ B/L LE edema, RLE wound in dressing Neurologic/Psych:AAOX3, grossly no focal neurological deficits Skin: normal color, warm Results & Data Results & Data ([place]) Vital Signs (Past 12 Hours) Vital Signs Temp Pulse Pulse Resp BP BP Pulse Ox 01/15/20 19:12 79 18 98 01/15/20 15:19 37.0 C 80 18 157/40 H 97 01/15/20 15:05 85 21 97 01/15/20 14:32 95 01/15/20 11:26 77 20 97 01/15/20 09:14 80 151/66 H 95 Laboratory Results Short CBC 01/15/20 Range/Units 05:44 WBC 6.92 (4.8-10.8) K/uL Hgb 8.9 L (12.0-16.0) g/dL Hct 27.6 L (37-47) % Plt Count 325 (130-400) K/uL [facility] 01/15/20 05:44 Sodium 144 Potassium 4.3 Chloride 112 H Carbon Dioxide 28 BUN 68 H Creatinine 1.72 H Glucose 47 L* Calcium 9.3 (1) Traumatic open wound of right lower leg Encounter type: initial encounter Qualified Code(s): S81.801A - Unspecified open wound, right lower leg, initial encounter
[2020-01-15] MEDS ORDERED: LORazepam 0.5 MG TAB PO STA (23:21)
[2020-01-16] MEDS: ACETAMINOPHEN 500 MG TAB PO SCH (05:25)
[2020-01-16 07:06] LABS: Hematocrit (blood only) 24.3 % (37-47)
[2020-01-16] MEDS: IPRATROPIUM BROMIDE HFA INHALER INH SCH ×2 (07:25→11:26)
[2020-01-16] MEDS: ALBUTEROL HFA 8 GM INHALER INH SCH ×2 (07:25→11:26)
[2020-01-16 07:39] LABS: BUN Creatinine Ratio 39.3 (10-20); Calcium 8.5 mg/dl (8.5-10.1); Creatinine Clr Calc Pharmacy 16.8 ml/min; Est GFR (African American) 33.6; Potassium 5.1 mmol/L (3.5-5.1)
[2020-01-16] MEDS: hydroCHLOROthiazide 25 MG TAB PO SCH (08:43)
[2020-01-16] MEDS: DOXYCYCLINE HYCLATE 100 MG CAP PO SCH (08:48)
[2020-01-16] MEDS: CLOPIDOGREL BISULFATE 75 MG TAB PO SCH (08:49)
[2020-01-16] MEDS: HEPARIN SOD 5,000 UNIT/0.5 ML VIAL SQ SCH (08:49)
[2020-01-16] MEDS: ATORVASTATIN 40 MG TAB PO SCH (08:49)
[2020-01-16] MEDS: PANTOprazole 40 MG TAB PO SCH (08:49)
[2020-01-16] MEDS: FLUTICASONE/VILANTEROL 100/25MCG 14 PUFFS/INHALER INH SCH (08:49)
[2020-01-16] MEDS: METOPROLOL SUCC 50MG EXT REL TAB PO SCH (08:49)
[2020-01-16] MEDS: INSULIN ASPART 100 UNITS/ML 3 ML PEN SC SCH ×2 (08:50→12:42)
[2020-01-16] MEDS: COLLAGENASE OINT 30 GM TUBE EXT SCH (09:52)
--- NOTE | 2020-01-16 12:39 | Discharge Summary ---
Date of Service January 16, 2020 Admission HPI Per Admitting Provider CHIEF COMPLAINT: Falls and shortness of breath. HISTORY OF PRESENT ILLNESS: This is an 79-year-old female with past medical history significant for chronic kidney disease stage IV, type 2 diabetes, CAD status post bare metal stent in 2008, hypertension, COPD requiring oxygen while sleeping and sometimes while ambulating, history of systolic CHF, carotid stenosis, history of diverticulitis, who was here recently for hypoxia from COPD and symptomatic anemia and acute on chronic kidney disease stage IV and sepsis, right lower extremity wound, treated with antibiotics and did fine and got discharged home today. Comes back with falls and shortness of breath. The patient says she was trying to go to the couch and she fell down and she got up. After sometime, she tried to go to bathroom and she could not get up from the commode when she pressed the alert button. Her brother also who lives close by as she was not answering the phone call, he came with his and she was brought into the hospital. When she came in, she was short of breath, but now she is back to her baseline. She is saturating fine in high 90s on 2 liters and no longer tachycardic and she is speaking in full sentences and able to give her history. Somewhat hard of hearing. Mainly complains of weakness and falls. She also has some sores in her mouth. She says she is having a hard time eating because of sores in her mouth. Denies any headache. Vision is okay. No runny nose, no sore throat, no cough, no chest pain, no nausea, no abdominal pain. Says her bowels are moving fine. Normal bladder movements. Has some edema in the lower extremities with wound in the right ashby region. No fevers. Admission Exam Per Admitting Provider PHYSICAL EXAMINATION: GENERAL: The patient is old and frail, not in acute distress. VITAL SIGNS: Currently temperature 36.8, pulse 75, respiratory rate 18, blood pressure 157/69, oxygen 98% on 2 liters. HEENT: No pallor, no icterus. Pupils equal, round, and reactive to light. Oral mucosa, lips have some sores and sores in the mouth seen. NECK: No neck masses. Supple. CARDIOVASCULAR: S1, S2 heard, regular rate and rhythm, no murmur, no gallop. RESPIRATORY SYSTEM: Normal AP diameter. No accessory muscle use. No wheezing, no crackles. ABDOMEN: Soft, bowel sounds present. Nontender, no distention. CENTRAL NERVOUS SYSTEM: Alert and oriented. Obeys commands. Moves extremities. Nonfocal. EXTREMITIES: Right lower extremity ashby wound is draining and lower extremity edema present. SKIN: Dry peeling skin seen. Principal Diagnosis Fall Hypoglycemia Chronic anemia Acute Bronchitis Right leg Traumatic wound Discharge Data Allergies Allergy/AdvReac Type Severity Reaction Status Date / Time codeine Allergy Mild Unknown Verified 12/31/19 22:55 amoxicillin Allergy Unknown unknown Verified 12/31/19 22:55 aspirin Allergy Unknown UNKNOWN Verified 12/31/19 22:55 bacitracin Allergy Unknown Rash Verified 12/31/19 22:55 isosorbide Allergy Unknown unknown Verified 12/31/19 22:55 neomycin Allergy Unknown Rash Verified 12/31/19 22:55 polymyxin B Allergy Unknown Rash Verified 12/31/19 22:55 Consultations 01/01/20 00:40 ED Decision to Admit Stat 01/01/20 03:14 Consult Case Management - Discharge Planning Routine 01/03/20 18:52 Consult Wound Care Provider Routine 01/09/20 11:24 Consult Vascular Surgery Routine Procedures Performed CT head:No acute intracranial findings. No change in appearance of the brain. No calvarial fracture. Pelvic X ray:Degenerative change. No acute process. Left Shoulder X ray:No acute fractures. Suspected calcific tendinopathy Ordered Studies 12/31/19 22:53 CT head/brain wo con Urgent 01/09/20 15:00 US arterial duplex LE LT Routine 01/09/20 15:15 US carotid doppler BI Routine Hospital Course (1) Fall: H/O Fall prior to admission Likely multifactorial CT head:No acute intracranial findings. No change in appearance of the brain. No calvarial fracture. Pelvic X ray:Degenerative change. No acute process. Left Shoulder X ray:No acute fractures. Suspected calcific tendinopathy PT / OT eval Fall precautions. (2) Traumatic open wound of right lower leg: Recent trauma to right leg with hematoma and open wound. Follows with Wound Clinic. Recently completed daptomycin and aztreonam course Continue wound care No plan for surgery as per Vascular surgery (3) CAD (coronary artery disease): Continue aspirin, metoprolol, statin. (4) CHF (congestive heart failure): H/O Chronic systolic/diastolic CHF. No ANGEL or ARB due to CKD. Held HCTZ for now Continue metoprolol Resume diuretics as able (5) HTN (hypertension): stable. Continue metoprolol (6) Chronic hypoxemic respiratory failure: Chronic hypoxic resp failure secondary to COPD. Continue supplemental O2. (7) COPD, severe: CXR:Small left pleural effusion with increase in left basilar opacity with volume loss. This may reflect pneumonia or atelectasis. Radiographic follow-up is recommended. Possible acute Bronchitis. Normal procalcitonin On doxycycline Continue Oxygen Nebs PRN (8) Stage III chronic kidney disease: CKD IV Baseline Cr ~ 2.0 as per prior Nephrology note Monitor renal function (9) DM type 2 (diabetes mellitus, type 2): Severe hypoglycemia on multiple occasions On glipizide and linagliptin at home. Hgb A1c: 6.1 on 12/21/19. Hold PO meds. Continue NovoLog while hospitalized Plan to Discontinue glipizide upon discharge as well (10) Hypoglycemia: as above (11) Anemia: Chronic anemia Baseline Hgb 9-10 S/P 1 unit pRBC's. FOBT negative Monitor H&H (12) Malnutrition: Wt 40.2 kg, BMI 17. Nutrition consulted Supplements recommended. (13) Calcific tendinitis of left shoulder: Reported left shoulder pain. X-ray showed calcific tendinopathy, no fractures. PT/OT Follow-up with Ortho as outpatient (14) DVT prophylaxis: SQ heparin (15) Discharge planning issues: Home with home health services when medically stable. Needs Follow-up with [facility]. Total Time Total Time Spent Total Time Spent (In Minutes): 42 minutes Total Time Includes: Examination of the Patient, Discharge Planning, Medication Reconciliation, Communication With Other Providers and Other Discharge Plan Discharge Items Patient Disposition: Home - Home Health Services Reason For Visit: FALL, SOB Discharge Diagnosis: Fall Hypoglycemia Chronic anemia Acute Bronchitis Right leg Traumatic wound Activity: Resume your previous activity Exercise/Sports: Gradually increase as tolerated Non-emergency contact: Primary Care Provider and Specialist Call non-emergency contact if: you have any medication questions, your symptoms worsen, your pain is not controlled, your pain is worsening, your pain is unusual for you, your pain is concerning for you, you have a fever, your wound has increased redness, your wound has increased drainage and your wound pain has increased Follow-up/Referrals: Dong Baumann MD [Primary Care Provider] - 01/21/20 12:20 pm (01/21/2020 12:20 PM Provider Dong Baumann MD Department [facility] ) Diet: Carb Consistent or DM2 Diet Texture: Easy to Chew Ambulatory Orders: Basic Metabolic Panel (Routine) Timeframe: 1 Week Location: Determined by Patient Ordered By: Beto Michaud Complete Blood Count no Diff (Routine) Timeframe: 1 Week Location: Determined by Patient Ordered By: Beto Michaud Addtl Attending Provider Instructions: Follow-up with your primary care physician Dr. Baumann on January 21, 2020 at 12:20 PM Follow-up with wound clinic as advised--Wound Clinic appointment scheduled on 01/23/2020 at 1 PM. Complete antibiotic course doxycycline as prescribed Get blood test--complete blood count, basic metabolic panel and follow-up with your primary care physician with results Seek immediate medical attention if your symptoms reoccur or worsen Pending Studies at Discharge: No Stand-Alone Forms: My [facility], Smoking Cessation Medications and DC Order Prescriptions: New doxycycline hyclate 100 mg Capsule 100 mg PO BID Qty: 7 RF: 0 Santyl 250 unit/gram Ointment 1 applic EXT DAILY Qty: 1 RF: 0 Dermacerin Cream 1 applic EXT UD PRN (Reason: dry skin) Qty: 1 RF: 0 Continued ipratropium-albuterol 0.5 mg-3 mg(2.5 mg base)/3 mL solution for nebulization 3 ml INHALATION Q4H PRN (Reason: Shortness Of Breath) RF: 0 metoprolol succinate 100 mg tablet extended release 24 hr 100 mg PO DAILY RF: 0 clopidogrel 75 mg tablet 75 mg PO DAILY RF: 0 albuterol sulfate [Ventolin HFA] 90 mcg/actuation HFA aerosol inhaler 2 puff INHALATION Q6H PRN (Reason: Shortness Of Breath) RF: 0 mirtazapine 7.5 mg tablet 7.5 mg PO HS RF: 0 budesonide-formoterol [Symbicort] 160-4.5 mcg/actuation HFA aerosol inhaler 2 puff INHALATION BID RF: 0 Tradjenta 5 mg tablet 5 mg PO DAILY RF: 0 pantoprazole 20 mg Tablet,Delayed Release (Dr/Ec) 20 mg PO DAILY RF: 0 atorvastatin 80 mg tablet 80 mg PO DAILY RF: 0 Combivent Respimat 20-100 mcg/actuation mist 1 puff INHALATION QID RF: 0 prednisone 20 mg tablet 20 mg PO DIRECTED RF: 0 ferrous sulfate 325 mg (65 mg iron) Tablet,Delayed Release (Dr/Ec) 325 mg PO QAM Qty: 30 RF: 1 hydrochlorothiazide 25 mg Tablet 25 mg PO QAM Qty: 30 RF: 1 Discontinued glipizide 5 mg tablet 5 mg PO DAILY RF: 0 Discharge Orders: Discharge Order (Routine); Ordered 01/16/20 Ordered By: Beto Michaud Admission Data Admit Date/Time: 01/01/20 01:35 Attending Provider: Beto Michaud Admit Provider: Elliott Pascual Primary Care Provider: Dong Baumann Other Providers: Elliott Pascual ; Leoncio Giron ; Joy Mcelroy ; Dudley Lebron Other Interventions: Discharge Summary Assessment (RN) Last Done: 01/16/20 11:35
== END 2020-01-16 13:51 | disposition home health service (06) | DRG 605 ==
LOC: ED 22:18 → 2N 01-01 01:35 → SUATTDRO 01-01 01:35 → 2N 01-01 02:38 → 3N 01-07 04:51

== ENCOUNTER 2020-01-18 00:37 | Inpatient (IN) ==
--- NOTE | 2020-01-18 00:42 | Emergency Department Note ---
Impression & Plan Acute exacerbation of chronic obstructive pulmonary disease, Hypomagnesemia ED Provider Note NAME: RUBEN SHAIKH AGE: 79 SEX: F ARRIVES VIA: Ambulance INFORMANT: Patient, EMS ED PROVIDER(S): Siomara Carroll DO CHIEF COMPLAINT: Shortness of breath PLAN: Disposition: Admitted to the [facility] Condition: Stable MEDICAL DECISION MAKING: This is an 79-year-old female patient with an extensive past medical history who presents to the emergency department with an episode of increasing shortness of breath after eating dinner. The patient tried her usual breathing treatments at home but got no relief. The patient had a low-grade fever on presentation here to the emergency department. Chest x-ray showed some infiltrative changes at the base of her chest x-ray with probable bilateral pleural effusions. He had received a DuoNeb treatment in route to the emergency department and received Solu-Medrol here in the emergency department and was able to rest more comfortably. She had been tested 2 days ago for COVID and was negative. The patient appears to be having a COPD exacerbation. Patient was given a dose of IV Rocephin. I discussed the case with the [facility] and they will evaluate for further management. Triage Nursing notes reviewed and agree them. Additional history obtained from EMS Prior medical records reviewed Vital Signs: reviewed and remarkable for hypertension and tachycardia Differential diagnosis: Pneumonia, COPD exacerbation, sepsis, CHF ER treatment provided: IV Solu-Medrol, IV Rocephin Diagnostics interpreted by me: ECG: Sinus tachycardia at a rate of 120 with T wave inversions inferiorly which are new compared to December 24, 2019. No significant ectopy Cardiac Monitoring: Sinus tachycardia at 116 Laboratory studies: See below Imaging studies: As per my interpretation Chest x-ray: Bilateral pleural mall effusions; emphysematous changes HPI: 79/F arrives for evaluation of shortness of. The patient was discharged from this hospital 2 days ago after falling down some cement steps and suffering an injury to her right lower extremity. She states that she has been doing well at home for the past 2 days but then developed some pre-significant shortness of breath tonight after eating tomato soup and grilled cheese for dinner. She tried to lay down but began to cough and have increasing shortness of breath. The patient is on 6 L of O2 chronically. She is on 20 mg of prednisone daily she tried using her breathing treatments at home but was getting no relief and called EMS. They administered a DuoNeb treatment which gave her only slight re lief. In route to the hospital, the patient developed some right lower quadrant abdominal pain. ROS: See above HPI for pertinent positives & negatives. A total of 10 systems reviewed and were otherwise negative. PAST MEDICAL HISTORY:See Below PAST SURGICAL HISTORY:See Below FAMILY HISTORY:See Below SOCIAL HISTORY:See Below HOME MEDICATIONS:See list ALLERGIES:See list VITALS:See Below PHYSICAL EXAMINATION: HEENT: Head - normocephalic and atraumatic Pupils are equal, round, and reactive to light. Extraocular eye muscles are intact, and sclera are anicteric. Nose - moist nasal mucosa without discharge. Mouth - moist buccal mucosa. Oropharynx is nonerythematous and there is no tonsillar exudate or edema noted. Neck: Supple; no JVD, nuchal rigidity, cervical lymphadenopathy, or auscultated bruits. Heart: Tachycardic rate and regular rhythm There is a normal S1 and S2 with no murmurs, clicks, or gallops appreciated. Lungs: Diminished breath sounds in all lung garcia Abdomen: Soft, completely nontender, nondistended, with good bowel sounds. There are no palpable pulsatile masses or hepatosplenomegaly. There is no guarding, rigidity, or rebound noted. Extremities: No evidence of cyanosis, clubbing, or edema. There are easily p alpable peripheral pulses. Skin: 2+ pitting edema both lower extremities with a wound to the right lower extremity covered in Telfa ED COURSE: Times/Reassessments: 0045: The patient was evaluated in room C5. An order was placed for continuous cardiac monitoring. The patient was in a sinus tachycardia at a rate of 116. Patient was on 6 L of O2 by nasal cannula. A portable chest x-ray was obtained. A septic protocol was performed. A twelve-lead EKG was obtained. Labs were drawn as above. Previous electronic medical records were reviewed. 0245: I reevaluated the patient at this time. She was sound asleep. I woke her and she stated that she was feeling somewhat better. I reviewed the results of the x-ray and laboratory studies with the patient. Patient was given a dose of IV Rocephin. I explained that she would be staying here in the hospital. Siomara Carroll DO Past Med/Surg History Medical History (Updated 01/18/20 @ 23:55 by Siomara Carroll DO) CAD (coronary artery disease) "NSTEMI 01/2009 - BMS to distal left circumflex, cath at that time showed 100% proximal RCA occlusion" CHF (congestive heart failure) CKD (chronic kidney disease), stage IV COPD, severe "oxygen requiring" DM type 2 (diabetes mellitus, type 2) Dyslipidemia Femoral artery aneurysm, right "s/p repair" GERD (gastroesophageal reflux disease) HTN (hypertension) Hypercalcemia Iron deficiency anemia Ischemic cardiomyopathy "echo 04/2015- EF 50-55%, grade I diastolic dysfunction" On 05/02/15 18:17 Adele Kareen wrote "echo 2010 - EF 45-50%, grade I diastolic dysfunction" Nocturnal hypoxemia Peripheral arterial disease with history of revascularization PVD (peripheral vascular disease) Surgical History H/O aorto-femoral bypass History of hysterectomy Hx of appendectomy Hx of cataract surgery S/P carotid endarterectomy "left in 2001, left carotid stent placed 2002" S/P femoral-popliteal bypass surgery Family History Other Heart disease Denies family history of Diabetes COPD (chronic obstructive pulmonary disease) Social History Smoking Status: Former smoker Second Hand Exposure: No; Do You Dip or Chew Tobacco: No; Tobacco Cessation Education Requested by Patient: No Hx Alcohol Use: No Hx Substance Use: No Preferred Language: Azeri Communication Ability: Effective Rn Mobile Required: No Beliefs That Will Affect Care: None marital status: / Current Living Situation: Alone Other Information That Helps Us Care for You: No Feels Safe at Home: Yes Safety Concerns: Feels Safe At This Time Allergies Allergies Allergy/AdvReac Type Severity Reaction Status Date / Time codeine Allergy Mild Unknown Verified 01/18/20 01:19 amoxicillin Allergy Unknown unknown Verified 01/18/20 01:19 aspirin Allergy Unknown UNKNOWN Verified 01/18/20 01:19 bacitracin Allergy Unknown Rash Verified 08/14/20 01:19 isosorbide Allergy Unknown unknown Verified 01/18/20 01:19 neomycin Allergy Unknown Rash Verified 01/18/20 01:19 polymyxin B Allergy Unknown Rash Verified 01/18/20 01:19 Home Meds Home Medications Medication Instructions Recorded Confirmed Combivent Respimat 1 puff INHALATION QID 05/01/19 01/18/20 Tradjenta 5 mg PO DAILY 05/01/19 01/18/20 albuterol sulfate [Ventolin HFA] 2 puff INHALATION Q6H PRN 05/01/19 01/18/20 atorvastatin 80 mg PO DAILY 05/01/19 01/18/20 budesonide-formoterol [Symbicort] 2 puff INHALATION BID 05/01/19 01/18/20 clopidogrel 75 mg PO DAILY 05/01/19 01/18/20 ipratropium-albuterol 3 ml INHALATION Q4H PRN 05/01/19 01/18/20 metoprolol succinate 100 mg PO DAILY 05/01/19 01/18/20 mirtazapine 7.5 mg PO HS 05/01/19 01/18/20 pantoprazole 20 mg PO DAILY 05/01/19 01/18/20 Previous Rx's Medication Instructions Recorded ferrous sulfate 325 mg PO QAM #30 tab 12/31/19 hydrochlorothiazide 25 mg PO QAM #30 tab 12/31/19 collagenase clostridium histo. 1 applic EXT DAILY #1 tube 01/16/20 [Santyl] doxycycline hyclate 100 mg PO BID #7 cap 01/16/20 white petrolatum-mineral oil 1 applic EXT UD PRN #1 tube 01/16/20 [Dermacerin] Results & Data (ED) Vital Signs Vital Signs - 24 hr 01/18/20 00:42 01/18/20 00:46 01/18/20 00:52 Temperature 37.2 C Temperature Source Oral Pulse Rate 123 H 122 H 114 H Pulse Rate from SpO2 Sensor 123 H 121 H Respiratory Rate 16 29 H 23 Respiratory Effort / Characteristics Spontaneous Blood Pressure 162/127 H 162/127 H Blood Pressure Mean 133 138 Pulse Oximetry 100 100 100 Oxygen Delivery Method Nasal Cannula Oxygen Flow Rate 5 Sepsis New/Unexplained Change in Mental Status N/A Sepsis Action Taken by Nursing Physician Notified 01/18/20 01:00 01/18/20 01:03 01/18/20 01:20 Temperature Temperature Source Pulse Rate 118 H 119 H 117 H Pulse Rate from SpO2 Sensor 118 H 120 H 117 H Respiratory Rate 39 H 34 H 35 H Respiratory Effort / Characteristics Blood Pressure 164/68 H Blood Pressure Mean 105 Pulse Oximetry 100 100 100 Oxygen Delivery Method Oxygen Flow Rate Sepsis New/Unexplained Change in Mental Status Sepsis Action Taken by Nursing 01/18/20 01:30 01/18/20 01:31 01/18/20 01:40 Temperature Temperature Source Pulse Rate 122 H 118 H Pulse Rate from SpO2 Sensor 120 H 121 H Respiratory Rate 32 H 34 H 35 H Respiratory Effort / Characteristics Spontaneous Blood Pressure 156/59 H Blood Pressure Mean 116 Pulse Oximetry 99 100 100 Oxygen Delivery Method Nasal Cannula Oxygen Flow Rate 5 Sepsis New/Unexplained Change in Mental Status Sepsis Action Taken by Nursing 01/18/20 02:00 01/18/20 02:01 01/18/20 02:05 Temperature Temperature Source Pulse Rate 116 H 107 H Pulse Rate from SpO2 Sensor 116 H 114 H Respiratory Rate 34 H 41 H Respiratory Effort / Characteristics Spontaneous Blood Pressure 156/72 H Blood Pressure Mean 107 Pulse Oximetry 100 100 100 Oxygen Delivery Method Nasal Cannula Nasal Cannula Oxygen Flow Rate 5 4 Sepsis New/Unexplained Change in Mental Status Sepsis Action Taken by Nursing 01/18/20 02:20 01/18/20 02:30 01/18/20 02:40 Temperature Temperature Source Pulse Rate 115 H 116 H 118 H Pulse Rate from SpO2 Sensor 115 H 116 H 118 H Respiratory Rate 35 H 36 H 34 H Respiratory Effort / Characteristics Spontaneous Blood Pressure 166/72 H Blood Pressure Mean 117 Pulse Oximetry 100 100 99 Oxygen Delivery Method Nasal Cannula Oxygen Flow Rate 4 Sepsis New/Unexplained Change in Mental Status Sepsis Action Taken by Nursing 01/18/20 02:50 01/18/20 03:00 01/18/20 03:01 Temperature Temperature Source Pulse Rate 117 H 117 H 117 H Pulse Rate from SpO2 Sensor 117 H 117 H 117 H Respiratory Rate 31 H 34 H 32 H Respiratory Effort / Characteristics Blood Pressure 165/72 H Blood Pressure Mean 116 Pulse Oximetry 100 100 100 Oxygen Delivery Method Nasal Cannula Nasal Cannula Nasal Cannula Oxygen Flow Rate 4 4 4 Sepsis New/Unexplained Change in Mental Status Sepsis Action Taken by Nursing 01/18/20 03:10 01/18/20 03:15 01/18/20 03:20 Temperature Temperature Source Pulse Rate 119 H 115 H Pulse Rate from SpO2 Sensor 121 H 115 H Respiratory Rate 31 H 33 H 38 H Respiratory Effort / Characteristics Spontaneous Blood Pressure Blood Pressure Mean Pulse Oximetry 100 99 100 Oxygen Delivery Method Nasal Cannula Nasal Cannula Nasal Cannula Oxygen Flow Rate 4 5 4 Sepsis New/Unexplained Change in Mental Status Sepsis Action Taken by Nursing 01/18/20 03:30 01/18/20 03:50 01/18/20 03:56 Temperature Temperature Source Pulse Rate 116 H 117 H Pulse Rate from SpO2 Sensor 116 H 117 H Respiratory Rate 37 H 34 H Respiratory Effort / Characteristics Spontaneous Blood Pressure 171/81 H Blood Pressure Mean 123 Pulse Oximetry 100 100 Oxygen Delivery Method Nasal Cannula Nasal Cannula Oxygen Flow Rate 4 4 Sepsis New/Unexplained Change in Mental Status Sepsis Action Taken by Nursing 01/18/20 04:00 01/18/20 04:10 01/18/20 04:30 Temperature Temperature Source Pulse Rate 116 H 117 H 117 H Pulse Rate from SpO2 Sensor 118 H 118 H 117 H Respiratory Rate 35 H 32 H 36 H Respiratory Effort / Characteristics Blood Pressure 151/62 H 161/74 H Blood Pressure Mean 112 109 Pulse Oximetry 100 100 100 Oxygen Delivery Method Nasal Cannula Nasal Cannula Nasal Cannula Oxygen Flow Rate 4 4 4 Sepsis New/Unexplained Change in Mental Status Sepsis Action Taken by Nursing 01/18/20 04:38 01/18/20 04:40 01/18/20 04:48 Temperature Temperature Source Pulse Rate 117 H 117 H Pulse Rate from SpO2 Sensor 117 H Respiratory Rate 34 H 34 H Respiratory Effort / Characteristics Spontaneous Blood Pressure 161/74 H Blood Pressure Mean Pulse Oximetry 100 100 Oxygen Delivery Method Nasal Cannula Nasal Cannula Oxygen Flow Rate 4 4 Sepsis New/Unexplained Change in Mental Status Sepsis Action Taken by Nursing 01/18/20 05:00 01/18/20 05:01 01/18/20 05:20 Temperature Temperature Source Pulse Rate 108 H 109 H 110 H Pulse Rate from SpO2 Sensor 109 H 109 H 109 H Respiratory Rate 35 H 32 H 47 H Respiratory Effort / Characteristics Blood Pressure 151/67 H Blood Pressure Mean 97 Pulse Oximetry 100 100 100 Oxygen Delivery Method Nasal Cannula Nasal Cannula Nasal Cannula Oxygen Flow Rate 4 4 4 Sepsis New/Unexplained Change in Mental Status Sepsis Action Taken by Nursing 01/18/20 05:30 01/18/20 05:40 01/18/20 06:00 Temperature Temperature Source Pulse Rate 111 H 116 H 112 H Pulse Rate from SpO2 Sensor 111 H 117 H 113 H Respiratory Rate 42 H 29 H 37 H Respiratory Effort / Characteristics Spontaneous Blood Pressure 156/71 H 151/65 H Blood Pressure Mean 111 95 Pulse Oximetry 100 88 L 97 Oxygen Delivery Method Nasal Cannula Room Air Nasal Cannula Oxygen Flow Rate 4 2 Sepsis New/Unexplained Change in Mental Status Sepsis Action Taken by Nursing Laboratory Data Result diagrams: 01/18/20 20:03 01/18/20 01:45 Lab Results 01/18/20 01/18/20 01/18/20 Range/Units 01:45 01:45 01:45 WBC 9.06 (4.8-10.8) K/uL RBC 2.40 L (4.2-5.4) M/uL Hgb 7.9 L (12.0-16.0) g/dL Hct 24.2 L (37-47) % MCV 100.8 H (80-100) fL MCH 32.9 (25-34) pg MCHC 32.6 (32-36) g/dL RDW Std Deviation 62.2 H (36.4-46.3) fL RDW Coeff of Leslie 16.9 H (11.5-14.5) % Plt Count 332 (130-400) K/uL MPV 10.0 (7.4-10.4) fL Immature Gran % (Auto) 0.3 % Neut % (Auto) 85.2 % Lymph % (Auto) 6.5 % [place] % (Auto) 6.2 % Eos % (Auto) 1.5 % Baso % (Auto) 0.3 % Neut # (Auto) 7.71 H (1.4-6.5) K/uL Lymph # (Auto) 0.59 L (1.2-3.4) K/uL [place] # (Auto) 0.56 (0.11-0.59) K/uL Eos # (Auto) 0.14 (0-0.5) K/uL Baso # (Auto) 0.03 (0-0.2) K/uL Immature Gran # (Auto) 0.03 H (0.00-0.02) K/uL RBC Morphology Unremarkable PT 10.6 (9.0-12.0) Seconds INR 1.0 (0.9-1.1) APTT 21.8 (21.0-31.0) Seconds PTT Ratio 0.8 ABG pH (7.35-7.45) ABG pCO2 (35-46) mmHg ABG pO2 (80-95) mmHg ABG HCO3 (19-24) mmol/L ABG O2 Saturation (90-95) % ABG Base Excess (-9-1.8) mEq/L Arias Test (Pos) Barometric Pressure mm/Hg Oxygen Given Sodium 149 H (136-145) mmol/L Potassium 4.9 (3.5-5.1) mmol/L Chloride 115 H (98-107) mmol/L Carbon Dioxide 30 (21-32) mmol/L Anion Gap 4.0 (3-11) BUN 52 H (7-18) mg/dl Creatinine 1.47 H (0.6-1.2) mg/dl Est Cr Clr Drug Dosing 22.6 ml/min Est GFR ( Amer) 38.4 Est GFR (Non-Af Amer) 33.1 BUN/Creatinine Ratio 35.2 H (10-20) Glucose 218 H (70-99) mg/dl Lactate (0.4-2.0) mmol/L Calcium 9.2 (8.5-10.1) mg/dl Magnesium 1.6 L (1.8-2.4) mg/dl Total Bilirubin 0.3 (0.2-1) mg/dl AST 75 H (15-37) U/L ALT 115 H (12-78) U/L Alkaline Phosphatase 502 H (45-117) U/L NT-Pro-B Natriuret Pep (0-1800) pg/ml Total Protein 5.5 L (6.4-8.2) gm/dl Albumin 2.1 L (3.4-5.0) gm/dl Globulin 3.4 (2.5-4.0) gm/dl Albumin/Globulin Ratio 0.6 L (0.9-2) Lipase 96 (73-393) U/L COVID-19 Eval Order COVID-19 PCR (Negative) Blood Type Antibody Screen Antibody Identification Antibody ID Comment Crossmatch 01/18/20 01/18/20 01/18/20 Range/Units 01:45 01:47 04:50 WBC (4.8-10.8) K/uL RBC (4.2-5.4) M/uL Hgb (12.0-16.0) g/dL Hct (37-47) % MCV (80-100) fL MCH (25-34) pg MCHC (32-36) g/dL RDW Std Deviation (36.4-46.3) fL RDW Coeff of Leslie (11.5-14.5) % Plt Count (130-400) K/uL MPV (7.4-10.4) fL Immature Gran % (Auto) % Neut % (Auto) % Lymph % (Auto) % [place] % (Auto) % Eos % (Auto) % Baso % (Auto) % Neut # (Auto) (1.4-6.5) K/uL Lymph # (Auto) (1.2-3.4) K/uL [place] # (Auto) (0.11-0.59) K/uL Eos # (Auto) (0-0.5) K/uL Baso # (Auto) (0-0.2) K/uL Immature Gran # (Auto) (0.00-0.02) K/uL RBC Morphology PT (9.0-12.0) Seconds INR (0.9-1.1) APTT (21.0-31.0) Seconds PTT Ratio ABG pH (7.35-7.45) ABG pCO2 (35-46) mmHg ABG pO2 (80-95) mmHg ABG HCO3 (19-24) mmol/L ABG O2 Saturation (90-95) % ABG Base Excess (-9-1.8) mEq/L Arias Test (Pos) Barometric Pressure mm/Hg Oxygen Given Sodium (136-145) mmol/L Potassium (3.5-5.1) mmol/L Chloride (98-107) mmol/L Carbon Dioxide (21-32) mmol/L Anion Gap (3-11) BUN (7-18) mg/dl Creatinine (0.6-1.2) mg/dl Est Cr Clr Drug Dosing ml/min Est GFR ( Amer) Est GFR (Non-Af Amer) BUN/Creatinine Ratio (10-20) Glucose (70-99) mg/dl Lactate 1.0 (0.4-2.0) mmol/L Calcium (8.5-10.1) mg/dl Magnesium (1.8-2.4) mg/dl Total Bilirubin (0.2-1) mg/dl AST (15-37) U/L ALT (12-78) U/L Alkaline Phosphatase (45-117) U/L NT-Pro-B Natriuret Pep 98353 H (0-1800) pg/ml Total Protein (6.4-8.2) gm/dl Albumin (3.4-5.0) gm/dl Globulin (2.5-4.0) gm/dl Albumin/Globulin Ratio (0.9-2) Lipase (73-393) U/L COVID-19 Eval Order Covid19 Done at [facility] COVID-19 PCR (Negative) Blood Type Antibody Screen Antibody Identification Antibody ID Comment Crossmatch 01/18/20 01/18/20 01/18/20 Range/Units 04:50 04:54 04:54 WBC (4.8-10.8) K/uL RBC (4.2-5.4) M/uL Hgb (12.0-16.0) g/dL Hct (37-47) % MCV (80-100) fL MCH (25-34) pg MCHC (32-36) g/dL RDW Std Deviation (36.4-46.3) fL RDW Coeff of Leslie (11.5-14.5) % Plt Count (130-400) K/uL MPV (7.4-10.4) fL Immature Gran % (Auto) % Neut % (Auto) % Lymph % (Auto) % [place] % (Auto) % Eos % (Auto) % Baso % (Auto) % Neut # (Auto) (1.4-6.5) K/uL Lymph # (Auto) (1.2-3.4) K/uL [place] # (Auto) (0.11-0.59) K/uL Eos # (Auto) (0-0.5) K/uL Baso # (Auto) (0-0.2) K/uL Immature Gran # (Auto) (0.00-0.02) K/uL RBC Morphology PT (9.0-12.0) Seconds INR (0.9-1.1) APTT (21.0-31.0) Seconds PTT Ratio ABG pH 7.27 L (7.35-7.45) ABG pCO2 64 H (35-46) mmHg ABG pO2 214 H (80-95) mmHg ABG HCO3 28 H (19-24) mmol/L ABG O2 Saturation 99.4 H (90-95) % ABG Base Excess 1.0 (-9-1.8) mEq/L Arias Test POS (Pos) Barometric Pressure 733.6 mm/Hg Oxygen Given 5 L Sodium (136-145) mmol/L Potassium (3.5-5.1) mmol/L Chloride (98-107) mmol/L Carbon Dioxide (21-32) mmol/L Anion Gap (3-11) BUN (7-18) mg/dl Creatinine (0.6-1.2) mg/dl Est Cr Clr Drug Dosing ml/min Est GFR ( Amer) Est GFR (Non-Af Amer) BUN/Creatinine Ratio (10-20) Glucose (70-99) mg/dl Lactate (0.4-2.0) mmol/L Calcium (8.5-10.1) mg/dl Magnesium (1.8-2.4) mg/dl Total Bilirubin (0.2-1) mg/dl AST (15-37) U/L ALT (12-78) U/L Alkaline Phosphatase (45-117) U/L NT-Pro-B Natriuret Pep (0-1800) pg/ml Total Protein (6.4-8.2) gm/dl Albumin (3.4-5.0) gm/dl Globulin (2.5-4.0) gm/dl Albumin/Globulin Ratio (0.9-2) Lipase (73-393) U/L COVID-19 Eval Order COVID-19 PCR NEGATIVE (Negative) Blood Type A Positive Antibody Screen POSITIVE A Antibody Identification Anti-M Antibody ID Comment Crossmatch See Detail 01/18/20 Range/Units 04:54 WBC (4.8-10.8) K/uL RBC (4.2-5.4) M/uL Hgb 7.4 L (12.0-16.0) g/dL Hct 23.0 L (37-47) % MCV (80-100) fL MCH (25-34) pg MCHC (32-36) g/dL RDW Std Deviation (36.4-46.3) fL RDW Coeff of Leslie (11.5-14.5) % Plt Count (130-400) K/uL MPV (7.4-10.4) fL Immature Gran % (Auto) % Neut % (Auto) % Lymph % (Auto) % [place] % (Auto) % Eos % (Auto) % Baso % (Auto) % Neut # (Auto) (1.4-6.5) K/uL Lymph # (Auto) (1.2-3.4) K/uL [place] # (Auto) (0.11-0.59) K/uL Eos # (Auto) (0-0.5) K/uL Baso # (Auto) (0-0.2) K/uL Immature Gran # (Auto) (0.00-0.02) K/uL RBC Morphology PT (9.0-12.0) Seconds INR (0.9-1.1) APTT (21.0-31.0) Seconds PTT Ratio ABG pH (7.35-7.45) ABG pCO2 (35-46) mmHg ABG pO2 (80-95) mmHg ABG HCO3 (19-24) mmol/L ABG O2 Saturation (90-95) % ABG Base Excess (-9-1.8) mEq/L Arias Test (Pos) Barometric Pressure mm/Hg Oxygen Given Sodium (136-145) mmol/L Potassium (3.5-5.1) mmol/L Chloride (98-107) mmol/L Carbon Dioxide (21-32) mmol/L Anion Gap (3-11) BUN (7-18) mg/dl Creatinine (0.6-1.2) mg/dl Est Cr Clr Drug Dosing ml/min Est GFR ( Amer) Est GFR (Non-Af Amer) BUN/Creatinine Ratio (10-20) Glucose (70-99) mg/dl Lactate (0.4-2.0) mmol/L Calcium (8.5-10.1) mg/dl Magnesium (1.8-2.4) mg/dl Total Bilirubin (0.2-1) mg/dl AST (15-37) U/L ALT (12-78) U/L Alkaline Phosphatase (45-117) U/L NT-Pro-B Natriuret Pep (0-1800) pg/ml Total Protein (6.4-8.2) gm/dl Albumin (3.4-5.0) gm/dl Globulin (2.5-4.0) gm/dl Albumin/Globulin Ratio (0.9-2) Lipase (73-393) U/L COVID-19 Eval Order COVID-19 PCR (Negative) Blood Type Antibody Screen Antibody Identification Antibody ID Comment Crossmatch Administered Medications Clopidogrel Bisulfate (Clopidogrel Bisulfate 75 Mg Tab) 75 mg PO DAILY ANA Stop: 02/17/20 08:59 Last Admin: 01/18/20 09:51 Dose: 75 mg Documented by: [id number] Collagenase (Collagenase Oint 30 Gm Tube) 1 appln EXT DAILY ANA Stop: 02/17/20 08:59 Last Admin: 01/18/20 09:53 Dose: 1 appln Documented by: [id number] Docusate Sodium (Docusate Sodium 100 Mg Cap) 100 mg PO BID ANA Stop: 02/17/20 08:59 Last Admin: 01/18/20 20:53 Dose: 100 mg Documented by: [id number] Admin: 01/18/20 09:52 Dose: 100 mg Documented by: [id number] Doxycycline Hyclate (Doxycycline Hyclate 100 Mg Cap) 100 mg PO BID@1000,2200 ANA Stop: 01/25/20 09:59 Last Admin: 01/18/20 20:53 Dose: 100 mg Documented by: [id number] Admin: 01/18/20 11:58 Dose: 100 mg Documented by: [id number] Ferrous Sulfate (Ferrous Sulfate 325 Mg Tab) 325 mg PO QAM ANA Stop: 02/17/20 08:59 Last Admin: 01/18/20 09:51 Dose: 325 mg Documented by: [id number] Fluticasone/Vilanterol (Fluticasone/Vilanterol 100/25mcg 14 Puffs/Inhaler) 1 puffs INH DAILY [facility]; Protocol Stop: 02/17/20 08:59 Last Admin: 01/18/20 09:52 Dose: 1 puffs Documented by: [id number] Heparin Sodium (Porcine) (Heparin Sod 5,000 Unit/0.5 Ml Vial) 5,000 units SQ Q12H ANA Stop: 02/17/20 08:59 Last Admin: 01/18/20 20:53 Dose: 5,000 units Documented by: [id number] Cosigned by: [id number] Admin: 08/14/20 09:52 Dose: 5,000 units Documented by: [id number] Cosigned by: [id number] Methylprednisolone 40 mg/ (Syringe) 0.64 mls @ 1.5 mls/min IV DAILY ANA Stop: 02/17/20 08:59 Last Admin: 01/18/20 09:52 Dose: 1.5 mls/min Documented by: [id number] Cefepime HCl 2,000 mg/ Syringe 20 mls @ 5 mls/min IV Q24H ANA; Protocol Stop: 01/25/20 09:59 Last Admin: 01/18/20 09:53 Dose: 5 mls/min Documented by: [id number] Insulin Aspart (Insulin Aspart 100 Units/Ml 3 Ml Pen) 0 units SC ACHS ANA Stop: 02/17/20 08:29 Last Admin: 01/18/20 20:53 Dose: Not Given Documented by: [id number] Cosigned by: [id number] Admin: 01/18/20 17:48 Dose: 3 units Documented by: [id number] Cosigned by: [id number] Admin: 01/18/20 11:59 Dose: 7 units Documented by: [id number] Cosigned by: [id number] Admin: 01/18/20 11:58 Dose: Not Given Documented by: [id number] Cosigned by: [id number] Insulin Glargine (Insulin Glargine Solostar 100 Units/Ml 3 Ml Pen) 5 units SC DAILY ANA Stop: 02/17/20 08:59 Last Admin: 01/18/20 09:52 Dose: 5 units Documented by: [id number] Cosigned by: [id number] Metoprolol Succinate (Metoprolol Succ 50mg Ext Rel Tab) 100 mg PO DAILY ANA Stop: 02/17/20 08:59 Last Admin: 01/18/20 09:51 Dose: 100 mg Documented by: [id number] Pantoprazole Sodium (Pantoprazole 40 Mg Tab) 40 mg PO DAILY ANA Stop: 02/17/20 08:59 Last Admin: 01/18/20 09:52 Dose: 40 mg Documented by: [id number] Discontinued Medications Ceftriaxone Sodium (Rocephin) 1,000 mg in 50 mls @ 100 mls/hr IV NOW STA Stop: 01/18/20 03:23 Last Infusion: 01/18/20 03:37 Dose: 0 mls/hr Documented by: [id number] Admin: 01/18/20 03:01 Dose: 100 mls/hr Documented by: [id number] Sodium Chloride (Nss) 500 mls @ 999 mls/hr IV .Q31M ONE Stop: 01/18/20 03:25 Last Infusion: 01/18/20 03:37 Dose: 0 mls/hr Documented by: [id number] Admin: 01/18/20 03:04 Dose: 999 mls/hr Documented by: [id number] Magnesium Sulfate/Dextrose (Magnesium Sulfate / D5w) 1 gm in 100 mls @ 50 mls/hr IV Q2H ANA Stop: 01/18/20 07:34 Last Infusion: 01/18/20 08:18 Dose: 0 mls/hr Documented by: [id number] Admin: 01/18/20 06:42 Dose: 50 mls/hr Documented by: [id number] Infusion: 01/18/20 06:41 Dose: 0 mls/hr Documented by: [id number] Admin: 01/18/20 04:42 Dose: 50 mls/hr Documented by: [id number] Sodium Chloride (1/2 Nss) 1,000 mls @ 50 mls/hr IV .Q20H ONE Stop: 01/19/20 01:59 Last Infusion: 01/18/20 08:58 Dose: 0 mls/hr Documented by: [id number] Infusion: 01/18/20 08:17 Dose: 0 mls/hr Documented by: [id number] Admin: 01/18/20 06:22 Dose: 50 mls/hr Documented by: [id number] Sodium Chloride (1/2 Nss) 1,000 mls @ 40 mls/hr IV .Q24H ANA Stop: 02/17/20 06:29 Last Infusion: 01/18/20 14:36 Dose: 0 mls/hr Documented by: [id number] Admin: 01/18/20 09:28 Dose: 40 mls/hr Documented by: [id number] Furosemide 20 mg/ Syringe 2 mls @ 4 mls/min IV ONE ONE Stop: 01/18/20 15:01 Last Admin: 01/18/20 15:50 Dose: 4 mls/min Documented by: [id number] Ipratropium Smoot (Ipratropium Smoot Neb Soln 0.02% 2.5 Ml Vial) 0.5 mg INH NOW STA Stop: 01/18/20 05:47 Last Admin: 01/18/20 06:16 Dose: 0.5 mg Documented by: [id number] Ipratropium Smoot (Ipratropium Smoot Neb Soln 0.02% 2.5 Ml Vial) 0.5 mg INH Q4R [facility] Stop: 02/17/20 10:59 Last Admin: 01/18/20 20:12 Dose: Not Given Documented by: [id number] Admin: 01/18/20 15:09 Dose: 0.5 mg Documented by: [id number] Admin: 01/18/20 10:54 Dose: 0.5 mg Documented by: [id number] Levalbuterol HCl (Levalbuterol 1.25mg/0.5ml Neb) 1.25 mg INH NOW STA Stop: 01/18/20 05:47 Last Admin: 01/18/20 06:17 Dose: 1.25 mg Documented by: [id number] Levalbuterol HCl (Levalbuterol 1.25mg/0.5ml Neb) 1.25 mg INH Q4R [facility] Stop: 02/17/20 10:59 Last Admin: 01/18/20 20:12 Dose: Not Given Documented by: [id number] Admin: 01/18/20 15:09 Dose: 1.25 mg Documented by: [id number] Admin: 01/18/20 10:54 Dose: 1.25 mg Documented by: [id number] Magnesium Sulfate/Dextrose (Magnesium Sulfate 1gm / D5w Bag) Confirm Administered Dose 1 gm IV .STK-MED ONE Stop: 01/18/20 04:07 Last Admin: 01/18/20 04:40 Dose: Not Given Documented by: [id number] Methylprednisolone (Methylprednisolone 125 Mg/2 Ml Vial) 125 mg IV NOW STA Stop: 01/18/20 01:42 Last Admin: 01/18/20 02:05 Dose: 125 mg Documented by: [id number] Metoprolol Tartrate (Metoprolol Tartrate 1 Mg/Ml Vial) 2.5 mg IV NOW STA Stop: 01/18/20 03:40 Last Admin: 01/18/20 04:38 Dose: 2.5 mg Documented by: [id number] Metoprolol Tartrate (Metoprolol Tartrate 1 Mg/Ml Vial) Confirm Administered Dose 5 mg IV .STK-MED ONE Stop: 01/18/20 04:07 Last Admin: 01/18/20 04:40 Dose: Not Given Documented by: [id number] Metoprolol Tartrate (Metoprolol Tartrate 1 Mg/Ml Vial) 2.5 mg IV NOW STA Stop: 01/18/20 05:42 Last Admin: 01/18/20 06:21 Dose: 2.5 mg Documented by: [id number] Discharge Plan Visit Data Chief Complaint: Respiratory Problems Stated Complaint: BREATHING DIFFICULTY ED Provider: Siomara Carroll Discharge Problem: Acute exacerbation of chronic obstructive pulmonary disease, Hypomagnesemia Patient Disposition: Admitted As Inpatient Discharge Instructions Interventions: ED Discharge Assessment Last Done: 01/18/20 08:20
[2020-01-18] MEDS ORDERED: methylPREDNISolone 125 MG/2 ML VIAL IV STA (01:41)
[2020-01-18 02:06] LABS: Basophils # (auto) 0.03 K/uL (0-0.2); Basophils % (auto) 0.3 %; Eosinophils # (auto) 0.14 K/uL (0-0.5); Eosinophils % (auto) 1.5 %; Hematocrit (blood only) 24.2 % (37-47); Hemoglobin 7.9 g/dL (12.0-16.0); Immature Granulocytes # (auto) 0.03 K/uL (0.00-0.02); Immature Granulocytes % (auto) 0.3 %; Lymphocytes # (auto) 0.59 K/uL (1.2-3.4); Lymphocytes % (auto) 6.5 %; Mean Corpuscular Hemoglobin 32.9 pg (25-34); Mean Corpuscular Hgb Conc 32.6 g/dL (32-36); Mean Corpuscular Volume 100.8 fL (80-100); Monocytes # (auto) 0.56 K/uL (0.11-0.59); Monocytes % (auto) 6.2 %; Neutrophils # (auto) 7.71 K/uL (1.4-6.5); Neutrophils % (auto) 85.2 %; Platelet Count 332 K/uL (130-400); RDW Coefficient of Variation 16.9 % (11.5-14.5); RDW Standard Deviation 62.2 fL (36.4-46.3); White Blood Count 9.06 K/uL (4.8-10.8)
[2020-01-18 02:16] LABS: Partial Thromboplastin Ratio 0.8; Partial Thromboplastin Time 21.8 Seconds (21.0-31.0); Prothrombin Time 10.6 Seconds (9.0-12.0)
[2020-01-18 02:22] LABS: Albumin Level 2.1 gm/dl (3.4-5.0); BUN Creatinine Ratio 35.2 (10-20); Calcium 9.2 mg/dl (8.5-10.1); Creatinine Clr Calc Pharmacy 22.6 ml/min; Est GFR (African American) 38.4; Est GFR (Non-African American) 33.1; Magnesium 1.6 mg/dl (1.8-2.4); Potassium 4.9 mmol/L (3.5-5.1)
[2020-01-18 02:25] LABS: Albumin Globulin Ratio 0.6 (0.9-2); Bilirubin,Total 0.3 mg/dl (0.2-1); Globulin 3.4 gm/dl (2.5-4.0); Total Protein 5.5 gm/dl (6.4-8.2)
[2020-01-18 02:30] LABS: RBC Morphology Unremarkable
[2020-01-18] MEDS ORDERED: cefTRIAXone SODIUM 1,000 MG/50 ML BAG IV STA (02:54)
[2020-01-18] MEDS ORDERED: SODIUM CHLORIDE 0.9% 500 ML IV ONE (02:55)
[2020-01-18] MEDS ORDERED: METOPROLOL TARTRATE 1 MG/ML VIAL IV STA ×2 (03:39→05:41)
[2020-01-18] MEDS ORDERED: METOPROLOL TARTRATE 1 MG/ML VIAL IV ONE (04:06)
[2020-01-18] MEDS ORDERED: MAGNESIUM SULFATE 1GM / D5W BAG IV ONE (04:06)
--- NOTE | 2020-01-18 04:22 | History & Physical Report ---
Date of Service January 18, 2020 Assessment & Plan (1) Acute on chronic respiratory failure with hypoxia and hypercapnia: Secondary to COPD exacerbation secondary to H CAP Recent hospital confinement. Respiratory acidosis secondary to above Hypertension elevated secondary to illness Abdominal discomfort with abnormal LFTs, noted progression of abnormal values from last confinement chronic CHF (EF 55 TO 60%, TTE 2018), equivocal volume status hx CAD, PVD sp surgery DM2, insulin requiring, well-controlled as of recent hemoglobin A1c of 6.05 December 2019 chronic renal insufficiency, creatinine at baseline Acute on chronic anemia. Some drop from baseline chronic RLE wound, improving on recent inpatient wound care provider evaluation. ? Functional disability (recurrent admissions) Malnutrition (low BMI) PCU BiPAP Recheck ABG Cefepime, Doxycycline Nebs, steroid course Pulmonary consult Re: Respiratory failure CT chest RE worsening cough, S OB CT abdomen pelvis RE abdominal discomfort with abnormal LFTs Facilitate beta-flor Rx Further management pending CT results Basal insulin, ISS BG goal [id number] Transfuse PRBC to maintain hemoglobin greater than 8 (symptomatic anemia, hx CAD/PVD as per records) PT OT eval Nutrition consult DVT prophylaxis with Heparin subcu Full code Total critical care time was 40 minutes. Text document was generated using [employer] voice recognition software. It may contain grammatical or spelling errors. Kindly contact undersigned for clarification of any documentation item in question. History of Present Illness Chief Complaint: Cough, shortness of breath Primary Care Provider: Dong Baumann MD History obtained from patient and records. History somewhat limited from patient secondary to hearing impairment. Medical history significant for chronic respiratory failure secondary to COPD on home O2 at night, chronic CHF (EF 55 TO 60%, TTE 2018), CAD, PVD sp surgery, hypertension, hyperlipidemia, past tobacco abuse, DM2, insulin requiring, chronic renal insufficiency (baseline creatinine in the 1.4-1.7), chronic anemia (baseline hemoglobin of 8), chronic RLE wound. Recent confinement from December 31 to January 16, 2020 mechanical fall and COPD exacerbation. Patient subsequently discharged home on Doxycycline course. At home, patient noted worsening cough symptoms yesterday with shortness of breath. Unable to expectorate. Patient denies chest pain or aspiration. Some abdominal discomfort. No fever, no chills. Patient brought to the ER for evaluation. Received Solu-Medrol, neb treatment, ceftriaxone for COPD exacerbation. MEDICAL HISTORY: As above. SURGERIES: She has had vascular procedures, appendectomy, hysterectomy, eye surgery. FAMILY HISTORY: Family history of heart disease. 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 Allergies Allergy/AdvReac Type Severity Reaction Status Date / Time codeine Allergy Mild Unknown Verified 01/18/20 01:19 amoxicillin Allergy Unknown unknown Verified 01/18/20 01:19 aspirin Allergy Unknown UNKNOWN Verified 01/18/20 01:19 bacitracin Allergy Unknown Rash Verified 01/18/20 01:19 isosorbide Allergy Unknown unknown Verified 01/18/20 01:19 neomycin Allergy Unknown Rash Verified 01/18/20 01:19 polymyxin B Allergy Unknown Rash Verified 01/18/20 01:19 Home Medications Home Medications Medication Instructions Recorded Confirmed Type Combivent Respimat 1 puff INHALATION QID 05/01/19 01/18/20 History Tradjenta 5 mg PO DAILY 05/01/19 01/18/20 History albuterol sulfate [Ventolin HFA] 2 puff INHALATION Q6H PRN 05/01/19 01/18/20 History atorvastatin 80 mg PO DAILY 05/01/19 01/18/20 History budesonide-formoterol [Symbicort] 2 puff INHALATION BID 05/01/19 01/18/20 History clopidogrel 75 mg PO DAILY 05/01/19 01/18/20 History ipratropium-albuterol 3 ml INHALATION Q4H PRN 05/01/19 01/18/20 History metoprolol succinate 100 mg PO DAILY 05/01/19 01/18/20 History mirtazapine 7.5 mg PO HS 05/01/19 01/18/20 History pantoprazole 20 mg PO DAILY 05/01/19 01/18/20 History ferrous sulfate 325 mg PO QAM #30 tab 12/31/19 01/18/20 Rx hydrochlorothiazide 25 mg PO QAM #30 tab 12/31/19 01/18/20 Rx collagenase clostridium histo. 1 applic EXT DAILY #1 tube 01/16/20 01/18/20 Rx [Santyl] doxycycline hyclate 100 mg PO BID #7 cap 01/16/20 01/18/20 Rx white petrolatum-mineral oil 1 applic EXT UD PRN #1 tube 01/16/20 01/18/20 Rx [Dermacerin] Past Med/Surg History Medical History (Updated 01/18/20 @ 09:25 by Erma Palma MD) CAD (coronary artery disease) "NSTEMI 01/2009 - BMS to distal left circumflex, cath at that time showed 100% proximal RCA occlusion" CHF (congestive heart failure) CKD (chronic kidney disease), stage IV COPD, severe "oxygen requiring" DM type 2 (diabetes mellitus, type 2) Dyslipidemia Femoral artery aneurysm, right "s/p repair" GERD (gastroesophageal reflux disease) HTN (hypertension) Hypercalcemia Iron deficiency anemia Ischemic cardiomyopathy "echo 04/2015- EF 50-55%, grade I diastolic dysfunction" On 05/02/15 18:17 Adele Kareen wrote "echo 2010 - EF 45-50%, grade I diastolic dysfunction" Nocturnal hypoxemia Peripheral arterial disease with history of revascularization PVD (peripheral vascular disease) Surgical History H/O aorto-femoral bypass History of hysterectomy Hx of appendectomy Hx of cataract surgery S/P carotid endarterectomy "left in 2001, left carotid stent placed 2002" S/P femoral-popliteal bypass surgery Family History Other Heart disease Denies family history of Diabetes COPD (chronic obstructive pulmonary disease) Social History Smoking Status: Former smoker Second Hand Exposure: No; Do You Dip or Chew Tobacco: No; Tobacco Cessation Education Requested by Patient: No Hx Alcohol Use: No Hx Substance Use: No Preferred Language: Welsh Communication Ability: Effective Police Surgeon Required: No Beliefs That Will Affect Care: None marital status: / Current Living Situation: Alone Other Information That Helps Us Care for You: No Feels Safe at Home: Yes Safety Concerns: Feels Safe At This Time Review of Systems Review of Systems: Somewhat limited due to hearing impairment Physical Exam Physical Exam: GENERAL: uncomfortable, hard of hearing, underweight and chronically ill, respiratory distress SKIN: Pallor, warm HEENT: pale palpebral conjunctivae, no ptosis, dry buccal mucosa, nasal cannula in place NECK : Supple, no tenderness CHEST : Decreased breath sounds, expiratory wheezes, no tenderness HEART : Tachycardic, no obvious murmurs ABDOMEN: Soft, nontender EXTREMITIES : Minimal LE swelling, no LE tenderness, dressing over RLE wound, no other conspicuous deformities noted NEUROLOGIC : Coherent, no facial asymmetry, hard of hearing, no other gross focality Results & Data Results & Data ([facility]) Vital Signs (Past 12 Hours) Vital Signs Temp Pulse Resp BP Pulse Ox 01/18/20 03:50 117 H 34 H 100 01/18/20 03:30 116 H 37 H 171/81 H 100 01/18/20 03:20 115 H 38 H 100 01/18/20 03:15 33 H 99 01/18/20 03:10 119 H 31 H 100 01/18/20 03:01 117 H 32 H 100 01/18/20 03:00 117 H 34 H 165/72 H 100 01/18/20 02:50 117 H 31 H 100 01/18/20 02:40 118 H 34 H 99 01/18/20 02:30 116 H 36 H 166/72 H 100 01/18/20 02:20 115 H 35 H 100 01/18/20 02:05 100 01/18/20 02:01 107 H 41 H 100 01/18/20 02:00 116 H 34 H 156/72 H 100 01/18/20 01:40 118 H 35 H 100 01/18/20 01:31 122 H 34 H 156/59 H 100 01/18/20 01:30 32 H 99 01/18/20 01:20 117 H 35 H 100 01/18/20 01:03 119 H 34 H 164/68 H 100 01/18/20 01:00 118 H 39 H 100 01/18/20 00:52 37.2 C 114 H 23 162/127 H 100 01/18/20 00:46 122 H 29 H 100 01/18/20 00:42 123 H 16 162/127 H 100 Laboratory Results Laboratory Results WBC 9.06 K/uL (4.8-10.8) 01/18/20 01:45 RBC 2.40 M/uL (4.2-5.4) L 01/18/20 01:45 Hgb 7.9 g/dL (12.0-16.0) L 01/18/20 01:45 Hct 24.2 % (37-47) L 01/18/20 01:45 MCV 100.8 fL (80-100) H 01/18/20 01:45 MCH 32.9 pg (25-34) 01/18/20 01:45 MCHC 32.6 g/dL (32-36) 01/18/20 01:45 RDW Std Deviation 62.2 fL (36.4-46.3) H 01/18/20 01:45 RDW Coeff of Leslie 16.9 % (11.5-14.5) H 01/18/20 01:45 Plt Count 332 K/uL (130-400) 01/18/20 01:45 MPV 10.0 fL (7.4-10.4) 01/18/20 01:45 Immature Gran % (Auto) 0.3 % 01/18/20 01:45 Neut % (Auto) 85.2 % 01/18/20 01:45 Lymph % (Auto) 6.5 % 01/18/20 01:45 Craig % (Auto) 6.2 % 01/18/20 01:45 Eos % (Auto) 1.5 % 01/18/20 01:45 Baso % (Auto) 0.3 % 01/18/20 01:45 Neut # (Auto) 7.71 K/uL (1.4-6.5) H 01/18/20 01:45 Lymph # (Auto) 0.59 K/uL (1.2-3.4) L 01/18/20 01:45 Craig # (Auto) 0.56 K/uL (0.11-0.59) 01/18/20 01:45 Eos # (Auto) 0.14 K/uL (0-0.5) 01/18/20 01:45 Baso # (Auto) 0.03 K/uL (0-0.2) 01/18/20 01:45 Immature Gran # (Auto) 0.03 K/uL (0.00-0.02) H 01/18/20 01:45 RBC Morphology Unremarkable 01/18/20 01:45 PT 10.6 Seconds (9.0-12.0) 01/18/20 01:45 INR 1.0 (0.9-1.1) 01/18/20 01:45 APTT 21.8 Seconds (21.0-31.0) 01/18/20 01:45 PTT Ratio 0.8 01/18/20 01:45 Sodium 149 mmol/L (136-145) H 01/18/20 01:45 Potassium 4.9 mmol/L (3.5-5.1) 01/18/20 01:45 Chloride 115 mmol/L (98-107) H 01/18/20 01:45 Carbon Dioxide 30 mmol/L (21-32) 01/18/20 01:45 Anion Gap 4.0 (3-11) 01/18/20 01:45 BUN 52 mg/dl (7-18) H 01/18/20 01:45 Creatinine 1.47 mg/dl (0.6-1.2) H 01/18/20 01:45 Est Cr Clr Drug Dosing 22.6 ml/min 01/18/20 01:45 Est GFR ( Amer) 38.4 01/18/20 01:45 Est GFR (Non-Af Amer) 33.1 01/18/20 01:45 BUN/Creatinine Ratio 35.2 (10-20) H 01/18/20 01:45 Glucose 218 mg/dl (70-99) H 01/18/20 01:45 Lactate 1.0 mmol/L (0.4-2.0) 01/18/20 01:47 Calcium 9.2 mg/dl (8.5-10.1) 01/18/20 01:45 Magnesium 1.6 mg/dl (1.8-2.4) L 01/18/20 01:45 Total Bilirubin 0.3 mg/dl (0.2-1) 01/18/20 01:45 AST 75 U/L (15-37) H 01/18/20 01:45 ALT 115 U/L (12-78) H 01/18/20 01:45 Alkaline Phosphatase 502 U/L (45-117) H 01/18/20 01:45 Total Protein 5.5 gm/dl (6.4-8.2) L 01/18/20 01:45 Albumin 2.1 gm/dl (3.4-5.0) L 01/18/20 01:45 Globulin 3.4 gm/dl (2.5-4.0) 01/18/20 01:45 Albumin/Globulin Ratio 0.6 (0.9-2) L 01/18/20 01:45 Diagnostic Findings Chest x-ray as per my interpretation COPD, infiltrate left EKG as per my interpretation : Rate 120, sinus tachycardia, normal axis, T wave abnormalities inferior leads, ST depression lateral leads
[2020-01-18] MEDS: MAGNESIUM SULFATE / D5W 1 GM/100 ML BAG IV SCH ×2 (04:42→06:42)
[2020-01-18 05:03] LABS: Hemoglobin 7.4 g/dL (12.0-16.0)
[2020-01-18 05:10] LABS: Allen Test POS (Pos); HCO3 ABG 28 mmol/L (19-24); Oxygen Saturation ABG 99.4 % (90-95); PCO2 ABG 64 mmHg (35-46); PO2 ABG 214 mmHg (80-95); pH ABG 7.27 (7.35-7.45)
[2020-01-18] MEDS ORDERED: XOPENEX/ATROVENT 1.25mg/0.5MG NEB COMBO NEB STA (05:41)
[2020-01-18] MEDS ORDERED: OLANZapine 10 MG/2.1 ML SDV IM PRN (05:41)
[2020-01-18] MEDS ORDERED: IPRATROPIUM BROMIDE NEB SOLN 0.02% 2.5 ML VIAL INH STA (05:46)
[2020-01-18] MEDS ORDERED: LEVALBUTEROL 1.25MG/0.5ML NEB INH STA (05:46)
[2020-01-18] MEDS ORDERED: SODIUM CHLORIDE 0.45 % 1,000 ML IV ONE (06:00)
[2020-01-18] MEDS ORDERED: SODIUM CHLORIDE 0.45 % 1,000 ML IV SCH (06:30)
--- NOTE | 2020-01-18 07:41 | XRay Report ---
XR chest 1V portable CLINICAL HISTORY: SEPSIS dyspnea COMPARISON STUDY: 01/15/2020 FINDINGS: Slight improvement in aeration left lung base. Minimal increase in visibility left hemidiap hragm. Persistent left basilar infiltrative change. Minimal interstitial infiltrative process right base also unchanged. Mid and upper lungs are considered clear. IMPRESSION: Bibasilar infiltrative changes. Very slight improvement left base compared to the prior study. ACT 112: Negative or not required by law. The above report was generated using voice recognition software. It may contain grammatical, syntax or spelling errors. Electronically signed by: Julio Cesar Valdivia M.D. 01/18/2020 7:40 AM
[2020-01-18] MEDS ORDERED: GLUCOSE 40% GEL 15 GM TUBE PO PRN (08:30)
[2020-01-18] MEDS ORDERED: GLUCAGON FOR INJ 1 MG VIAL SQ PRN (08:30)
[2020-01-18] MEDS ORDERED: DEXTROSE 50% 50 ML SYRINGE IV PRN (08:30)
[2020-01-18] MEDS ORDERED: ACETAMINOPHEN 325 MG TAB PO PRN (08:30)
[2020-01-18] MEDS ORDERED: PROMETHAZINE HCL 12.5 MG in SODIUM CHLORIDE 0.9% 50 ML IV PRN (08:30)
[2020-01-18] MEDS ORDERED: GLUCOSE 10 TABS/TUBE PO PRN (08:30)
[2020-01-18] MEDS ORDERED: TRAMADOL HCL 50 MG TABLET PO PRN (08:30)
[2020-01-18] MEDS ORDERED: SODIUM CHLORIDE 0.9% 250 ML IV PRN (08:30)
--- NOTE | 2020-01-18 08:39 | CT Scan Report ---
CT SCAN OF THE CHEST, ABDOMEN, AND PELVIS WITHOUT IV CONTRAST CLINICAL HISTORY: Cough and dyspnea. Generalized abdominal pain. COMPARISON STUDY: Chest CT dated 12/20/2016. Abdominal CT dated 06/09/2016. TECHNIQUE: Unenhanced CT scan of the chest, abdomen, and pelvis was performed from the thoracic inlet to the proximal femora. Images are reviewed in the axial, sagittal, and coronal planes. IV contrast was not administered for this examination as per the referring clinician. Note that the examination i s performed in significantly suboptimal fashion without oral and IV contrast. A dose lowering techni que was utilized adhering to the principles of ALARA. CT DOSE: 469.81 mGy.cm FINDINGS: CHEST: Thyroid: Atrophic and heterogeneous. Thoracic aorta: There is advanced atherosclerotic calcification of the thoracic aorta, which is key l in caliber and demonstrates standard 3-vessel arch anatomy. Heart: The heart is mildly enlarged and noting a moderate pericardial effusion. The coronary arteries are densely calcified. The pulmonary trunk is dilated, measuring 3.4 cm in transverse diameter. This suggests pulmonary artery hypertension. There is diminished attenuation of the cardiac blood pole as compared to the myocardium suggesting anemia. Lungs and pleural spaces: Evaluation of the lung parenchyma is degraded by motion artifact. Advanced emphysematous change is noted. There are small to moderate pleural effusions with bibasilar consolida tion. The trachea and central airways are clear. Mediastinum: Scattered subcentimeter mediastinal lymph nodes are partially visualized. Hillary: Not well evaluated without IV contrast. Axillae: There is no axillary lymphadenopathy. Bony thorax: The skeletal structures are osteopenic. Degenerative change and hyperkyphosis is noted i n the thoracic spine. Advanced degenerative change is noted in the left shoulder with calcified joint bodies. No lytic or blastic lesions are identified. Soft tissues: The patient is cachectic. There is body wall edema. ABDOMEN AND PELVIS: Liver: The unenhanced liver is normal in size, contour, and attenuation. There is no intra- or extrah epatic biliary ductal dilatation. There are scattered calcified hepatic granulomas. Question periport al edema. Gallbladder: Calcified gallstones are noted on image #131. The gallbladder is otherwise normal as zurdo ged. Spleen: Normal in size and attenuation. Pancreas: The unenhanced pancreas is atrophic. Scattered parenchymal calcifications are nonspecific a nd could be seen in the setting of chronic pancreatitis. Adrenal glands: Bilateral adrenal adenomas are unchanged. Kidneys: The unenhanced kidneys are atrophic and without hydronephrosis. No renal calculi are identif ied. There is advanced renovascular calcification. There is no evidence of contour deforming mass les ion. Abdominal vasculature: There is advanced atherosclerotic calcification of the abdominal aorta with ev idence of aortobiiliac bypass grafting. Bowel: There is no bowel obstruction. There is at least moderate colonic diverticulosis without clear CT evidence of acute diverticulitis. Moderate constipation is observed. The appendix is not identif ied and reported surgically absent. Peritoneum: There is no intraperitoneal free air. There is trace abdominopelvic ascites. Lymphadenopathy: None. Pelvic viscera: The bladder is significantly distended but otherwise normal in appearance. The uterus is surgically absent. No adnexal lesion is seen. Skeletal structures: The skeletal structures are os teopenic. There is moderate lumbosacral spondylosis. Mild superior endplate compression deformities a re noted in L2 and L3. A large bone island in the body of L3 is unchanged. No lytic or blastic lesion s are seen. IMPRESSION: 1. Significantly suboptimal examination without oral and IV contrast. There is also motion artifact. 2. Advanced emphysema. 3. Mild cardiac enlargement noting a moderate pericardial effusion. 4. Small to moderate pleural effusions with bibasilar consolidation. This likely represents atelectas is. Correlate clinically for evidence of superimposed pneumonia. 5. There is trace abdominopelvic ascites. 6. Cholelithiasis. 7. Bladder distention. 8. Colonic diverticulosis without clear CT evidence of acute diverticulitis. 9. Moderate constipation. 10. Body wall edema. 11. Additional findings as above. ACT 112: Negative or not required by law. Electronically signed by: Vikram Lopez M.D. 01/18/2020 8:37 AM
[2020-01-18] MEDS ORDERED: POLYETHYLENE (MIRALAX) 17 GM PACK PO PRN (08:55)
[2020-01-18] MEDS ORDERED: CEFEPIME CONSULT ACTIVE PRN (09:00)
--- NOTE | 2020-01-18 09:27 | Pulmonary Consultation ---
Date of Consultation January 18, 2020 Assessment & Plan (1) Acute on chronic respiratory failure with hypoxia and hypercapnia: CT chest 01/18/2020: Severe centrilobular emphysema appreciated mostly on the upper lobes, bilateral pleural effusion, there is bilateral lower lobe atelectasis more on the left side. Superimposed pneumonia cannot be excluded on the left lower lobe. Pulmonary artery seems to be enlarged. --Acute on chronic hypercapnic hypoxic respiratory failure Etiology multifactorial COPD exacerbation --> continue with Solu-Medrol, inhaled bronchodilator, antibiotic as anti-inflammatory effect Diastolic CHF with bilateral pleural effusion--> continue with diuresis as tolerated O2 supplementation to keep oxygen saturation between 88-92% --Bilateral pleural effusion Likely from underlying heart failure, diastolic with mild degree systolic function as well --COPD/emphysema severe For COPD patient is to be on triple therapy at home. Would recommend Trelegy inhaler on a daily basis when discharged Please note the above document was generated using voice recognition software. It may contain grammatical, syntax or spelling errors. History of Present Illness Attending Physician: Beto Michaud MD History of Present Illness 79-year-old female with significant past medical history of severe COPD/emphysema on home O2 2-3 L, chronic CHF diastolic, coronary artery disease, CKD, hypertension was admitted to the hospital because of worsening shortness of breath which has been going on since last week or so progressively getting worse. She was using inhalers as well as nebulizers but it was not helping. Patient does complain of chronic cough which is increased in intensity but clear phlegm. Denies any fever or chills. Denies any chest pain, no headache, no dizziness, no dysuria, no diarrhea. Patient states that she has inhalers at home and she is compliant with it. Social history: Greater than [id number] smoking history quit approximately a month ago, no alcohol, no illicit drug use. Allergies Allergy/AdvReac Type Severity Reaction Status Date / Time codeine Allergy Mild Unknown Verified 01/18/20 01:19 amoxicillin Allergy Unknown unknown Verified 01/18/20 01:19 aspirin Allergy Unknown UNKNOWN Verified 01/18/20 01:19 bacitracin Allergy Unknown Rash Verified 01/18/20 01:19 isosorbide Allergy Unknown unknown Verified 01/18/20 01:19 neomycin Allergy Unknown Rash Verified 01/18/20 01:19 polymyxin B Allergy Unknown Rash Verified 01/18/20 01:19 Home Medications Home Medications Medication Instructions Recorded Confirmed Type Combivent Respimat 1 puff INHALATION QID 05/01/19 01/18/20 History Tradjenta 5 mg PO DAILY 05/01/19 01/18/20 History albuterol sulfate [Ventolin HFA] 2 puff INHALATION Q6H PRN 05/01/19 01/18/20 History atorvastatin 80 mg PO DAILY 05/01/19 01/18/20 History budesonide-formoterol [Symbicort] 2 puff INHALATION BID 05/01/19 01/18/20 History clopidogrel 75 mg PO DAILY 05/01/19 01/18/20 History ipratropium-albuterol 3 ml INHALATION Q4H PRN 05/01/19 01/18/20 History metoprolol succinate 100 mg PO DAILY 05/01/19 01/18/20 History mirtazapine 7.5 mg PO HS 05/01/19 01/18/20 History pantoprazole 20 mg PO DAILY 05/01/19 01/18/20 History ferrous sulfate 325 mg PO QAM #30 tab 12/31/19 01/18/20 Rx hydrochlorothiazide 25 mg PO QAM #30 tab 12/31/19 01/18/20 Rx collagenase clostridium histo. 1 applic EXT DAILY #1 tube 01/16/20 01/18/20 Rx [Santyl] doxycycline hyclate 100 mg PO BID #7 cap 01/16/20 01/18/20 Rx white petrolatum-mineral oil 1 applic EXT UD PRN #1 tube 01/16/20 01/18/20 Rx [Dermacerin] Patient History Medical History CAD (coronary artery disease) "NSTEMI 01/2009 - BMS to distal left circumflex, cath at that time showed 100% proximal RCA occlusion" CHF (congestive heart failure) CKD (chronic kidney disease), stage IV COPD, severe "oxygen requiring" DM type 2 (diabetes mellitus, type 2) Dyslipidemia Femoral artery aneurysm, right "s/p repair" GERD (gastroesophageal reflux disease) HTN (hypertension) Hypercalcemia Iron deficiency anemia Ischemic cardiomyopathy "echo 04/2015- EF 50-55%, grade I diastolic dysfunction" On 05/02/15 18:17 Adele Mathur wrote "echo 2010 - EF 45-50%, grade I diastolic dysfunction" Nocturnal hypoxemia Peripheral arterial disease with history of revascularization PVD (peripheral vascular disease) Surgical History H/O aorto-femoral bypass History of hysterectomy Hx of appendectomy Hx of cataract surgery S/P carotid endarterectomy "left in 2001, left carotid stent placed 2002" S/P femoral-popliteal bypass surgery Family History Other Heart disease Denies family history of Diabetes COPD (chronic obstructive pulmonary disease) Social History Smoking Status: Former smoker Second Hand Exposure: No; Do You Dip or Chew Tobacco: No; Tobacco Cessation Education Requested by Patient: No Hx Alcohol Use: No Hx Substance Use: No Preferred Language: Kinyarwanda Communication Ability: Effective Grading Machine Feeder Required: No Beliefs That Will Affect Care: None marital status: / Current Living Situation: Alone Other Information That Helps Us Care for You: No Feels Safe at Home: Yes Safety Concerns: Feels Safe At This Time Review of Systems Review of Systems: All systems reviewed & are unremarkable except as noted in HPI & below Physical Exam Physical Exam: Constitutional: No acute distress, frail-appearing HEENT: EOMI, PERRLA Respiratory system: Decreased air entry bilaterally, no wheeze, no rhonchi, mild crackles bilateral lower lobes CVS: S1-S2 positive, no murmurs or gallops Abdomen: Soft, nontender, nondistended, positive bowel sounds x4 Extremities: +2 pulses bilaterally radialis/ dorsalis pedis, no cyanosis, +2 pitting edema bilateral lower extremity Neuro: Awake alert oriented x3 Psych: Normal mood and affect G/U: No Perez Skin: no rashes, warm and dry Lymphatic: no cervical or axillary lymphadenopathy Results & Data Results & Data ([facility]) Vital Signs (Past 12 Hours) Vital Signs Temp Pulse Pulse Resp BP BP Pulse Ox 01/18/20 09:06 106 H 01/18/20 08:30 37.2 C 103 H 22 154/66 H 100 01/18/20 07:50 105 H 28 H 98 01/18/20 07:40 105 H 32 H 98 01/18/20 07:31 106 H 32 H 98 01/18/20 07:30 105 H 31 H 162/69 H 98 01/18/20 07:20 106 H 35 H 98 01/18/20 07:10 106 H 30 H 98 01/18/20 07:01 108 H 38 H 97 01/18/20 07:00 106 H 25 H 150/68 H 97 01/18/20 06:50 106 H 34 H 98 01/18/20 06:40 106 H 40 H 98 01/18/20 06:31 105 H 36 H 99 01/18/20 06:30 106 H 33 H 147/65 H 99 01/18/20 06:17 112 H 37 H 97 01/18/20 06:00 112 H 37 H 151/65 H 97 01/18/20 05:40 116 H 29 H 88 L 01/18/20 05:30 111 H 42 H 156/71 H 100 01/18/20 05:20 110 H 47 H 100 01/18/20 05:01 109 H 32 H 100 01/18/20 05:00 108 H 35 H 151/67 H 100 01/18/20 04:48 34 H 100 01/18/20 04:40 117 H 34 H 100 01/18/20 04:38 117 H 161/74 H 01/18/20 04:30 117 H 36 H 161/74 H 100 01/18/20 04:10 117 H 32 H 100 01/18/20 04:00 116 H 35 H 151/62 H 100 01/18/20 03:50 117 H 34 H 100 01/18/20 03:30 116 H 37 H 171/81 H 100 01/18/20 03:20 115 H 38 H 100 01/18/20 03:15 33 H 99 01/18/20 03:10 119 H 31 H 100 01/18/20 03:01 117 H 32 H 100 01/18/20 03:00 117 H 34 H 165/72 H 100 01/18/20 02:50 117 H 31 H 100 01/18/20 02:40 118 H 34 H 99 01/18/20 02:30 116 H 36 H 166/72 H 100 01/18/20 02:20 115 H 35 H 100 01/18/20 02:05 100 01/18/20 02:01 107 H 41 H 100 01/18/20 02:00 116 H 34 H 156/72 H 01/18/20 01:40 118 H 35 H 01/18/20 01:31 122 H 34 H 156/59 H 01/18/20 01:30 32 H 99 01/18/20 01:20 117 H 35 H 01/18/20 01:03 119 H 34 H 164/68 H 01/18/20 01:00 118 H 39 H 01/18/20 00:52 37.2 C 114 H 23 162/127 H 100 01/18/20 00:46 122 H 29 H 100 01/18/20 00:42 123 H 16 162/127 H 100 PG Care Time/CCT Total # of Minutes Spent Total Time Spent with Patient: Total time spent is greater than 50% in coordination of care (as documented) at patient's floor/unit and/or counseling patient: Coding Level of Care Code 10120 Initial Inpt Care Lvl 3 Diagnoses Acute on chronic respiratory failure with hypoxia and hypercapnia J96.21; J96.22
[2020-01-18] MEDS: CLOPIDOGREL BISULFATE 75 MG TAB PO SCH (09:51)
[2020-01-18] MEDS: FERROUS SULFATE 325 MG TAB PO SCH (09:51)
[2020-01-18] MEDS: METOPROLOL SUCC 50MG EXT REL TAB PO SCH (09:51)
[2020-01-18] MEDS: INSULIN GLARGINE SOLOSTAR 100 UNITS/ML 3 ML PEN SC SCH (09:52)
[2020-01-18] MEDS: PANTOprazole 40 MG TAB PO SCH (09:52)
[2020-01-18] MEDS: FLUTICASONE/VILANTEROL 100/25MCG 14 PUFFS/INHALER INH SCH (09:52)
[2020-01-18] MEDS: methylPREDNISolone 40 MG in SYRINGE 0 ML IV SCH (09:52)
[2020-01-18] MEDS: HEPARIN SOD 5,000 UNIT/0.5 ML VIAL SQ SCH ×2 (09:52→20:53)
[2020-01-18] MEDS: DOCUSATE SODIUM 100 MG CAP PO SCH ×2 (09:52→20:53)
[2020-01-18] MEDS: CEFEPIME 2,000 MG in SYRINGE 7.5 ML IV SCH (09:53)
[2020-01-18] MEDS: COLLAGENASE OINT 30 GM TUBE EXT SCH (09:53)
[2020-01-18 10:17] LABS: Appearance Urine Clear (Clear); Bilirubin Urine Negative (Negative); Blood Urine Trace (Negative); Color Urine Yellow; Glucose Urine UA 1+ (Negative); Ketones Urine Negative (Negative); Leukocyte Esterase Urine Negative (Negative); Nitrite Urine Negative (Negative); Protein Urine 3+ (Negative); Specific Gravity Urine 1.025 (1.000-1.030); Urobilinogen Urine Negative (Negative)
[2020-01-18 10:30] LABS: Epithelial Cell Urine 20-30 /lpf (0-5)
[2020-01-18 10:31] LABS: Bacteria Urine Negative (Negative); RBC Urine 0-4 /hpf (0-4)
[2020-01-18] MEDS: LEVALBUTEROL 1.25MG/0.5ML NEB INH SCH ×3 (10:54→20:12)
[2020-01-18] MEDS: IPRATROPIUM BROMIDE NEB SOLN 0.02% 2.5 ML VIAL INH SCH ×3 (10:54→20:12)
[2020-01-18] MEDS ORDERED: XOPENEX/ATROVENT 1.25mg/0.5MG NEB COMBO NEB SCH (11:00)
[2020-01-18 11:40] LABS: iSTAT Arterial Blood Gas pH 7.36 (7.35-7.45); iSTAT Hematocrit 22 % (37-47); iSTAT Hemoglobin 7.5 g/dl (12.0-16.0); iSTAT Sodium 142 mmol/L (135-144)
[2020-01-18 11:41] LABS: iSTAT Arterial Blood Gas HCO3 27 meg/L (19-24); iSTAT Arterial Blood Gas pCO2 47 mmHg (35-46); iSTAT Arterial Blood Gas pO2 76 mmHg (80-95); iSTAT Carbon Dioxide 28 mmol/L (24-31)
[2020-01-18] MEDS: INSULIN ASPART 100 UNITS/ML 3 ML PEN SC SCH ×4 (11:58→20:53)
[2020-01-18] MEDS: DOXYCYCLINE HYCLATE 100 MG CAP PO SCH ×2 (11:58→20:53)
[2020-01-18] MEDS ORDERED: HEPARIN SOD 5,000 UNIT/0.5 ML VIAL SQ SCH (14:00)
--- NOTE | 2020-01-18 14:55 | Hospitalist Progress Note ---
Date of Service January 18, 2020 Assessment & Plan (1) Acute on chronic respiratory failure with hypoxia and hypercapnia: Acute on chronic hypoxic, hypercapnic respiratory failure Multifactorial Healthcare associated pneumonia Acute CHF Exacerbation with B/L Pleural Effusion Acute on Chronic COPD --CT: Advanced emphysema. Mild cardiac enlargement noting a moderate pericardial effusion. Small to moderate pleural effusions with bibasilar consolidation. This likely represents atelectasis. Correlate clinically for evidence of superimposed pneumonia. There is trace abdominopelvic ascites. Cholelithiasis. Bladder distention. Colonic diverticulosis without clear CT evidence of acute divert iculitis. Moderate constipation. Body wall edema. --Continue broad spectrum Antibiotics--Cefepime, Doxy --Continue Supplemental oxygen as needed --On Solumedrol, Nebs --Pulmonology consulted --Discontinue IV fluids --Will give IV lasix today --Reassess volume status closely --Check ECHO Volume Overload Acute CHF Exacerbation in setting of CKD Pericardial Effusion Check ECHO Consider Cardiology eval Laisx as needed Monitor I/Os, daily weight Monitor electrolytes, renal function Hypomagnesemia Replete electrolytes as needed Transaminitis Trace ascites Likely due to hepatic congestion from volume overload CT ABD as above Monitor LFTs Consider GI eval if needed Hypertension BP slightly elevated likely situational Continue Metoprolol Will add meds if needed H/O CAD PVD S/P surgery Continue Plavix, metoprolol, statin DM Type II Last HbA1C:6.05 December 2019 Continue Insulin therapy while hospitalized Monitor BGs CKD IV Baseline Cr ~ 2.0 as per prior Nephrology note Monitor renal function Cr at baseline Acute on Chronic Anemia Partly dilutional due to volume overload Secondary to CKD Transfuse PRBCs as needed Denies active bleeding issues Monitor CBC Chronic RLE wound Continue wound care Malnutrition: BMI 16 Nutrition consulted DVT Px: Heparin SQ Code Status DNI only as per my discussion with patient Admission and Anticipated Discharge Date Admission Date: January 18, 2020 Subjective Patient is seen and examined at bedside Complains of cough with greenish expectoration Also states having chest pain associated with cough Reports dyspnea even with minimal exertion Offers no other complaints Review of Systems Review of Systems: All systems reviewed & are unremarkable except as noted in HPI & below Physical Exam Physical Exam: Physical Exam: Vitals signs as noted above General Appearance:Thin, Frail, no apparent distress Head: normocephalic, Atraumatic Eyes: normal inspection, EOMI Neck: supple, Trachea midline Respiratory/Chest: Decreased breath sounds, scattered rhonchi Cardiovascular: S1, S2, No murmur Abdomen/GI:Soft, Non tender, Bowel sounds present Extremities/Musculoskelatal:normal inspection, B/L LE edema, RLE wound in dressing Neurologic/Psych:AAOX3, grossly no focal neurological deficits Skin: normal color, warm Results & Data Results & Data ([facility]) Vital Signs (Past 12 Hours) Vital Signs Temp Pulse Pulse Resp BP BP Pulse Ox 01/18/20 14:35 36.9 C 94 H 22 167/72 H 99 01/18/20 14:07 36.8 C 96 H 22 164/68 H 100 01/18/20 13:07 36.8 C 98 H 20 160/69 H 100 01/18/20 12:07 36.9 C 104 H 22 171/80 H 98 01/18/20 11:37 36.7 C 103 H 20 171/73 H 96 01/18/20 11:22 36.7 C 99 H 20 173/75 H 100 01/18/20 11:04 36.8 C 103 H 20 157/73 H 99 01/18/20 10:58 101 H 22 100 01/18/20 09:06 106 H 01/18/20 08:30 37.2 C 103 H 22 154/66 H 100 01/18/20 07:50 105 H 28 H 98 01/18/20 07:40 105 H 32 H 98 01/18/20 07:31 106 H 32 H 98 01/18/20 07:30 105 H 31 H 162/69 H 98 01/18/20 07:20 106 H 35 H 98 01/18/20 07:10 106 H 30 H 98 01/18/20 07:01 108 H 38 H 97 01/18/20 07:00 106 H 25 H 150/68 H 97 01/18/20 06:50 106 H 34 H 98 01/18/20 06:40 106 H 40 H 98 01/18/20 06:31 105 H 36 H 99 01/18/20 06:30 106 H 33 H 147/65 H 99 01/18/20 06:17 112 H 37 H 97 01/18/20 06:00 112 H 37 H 151/65 H 97 01/18/20 05:40 116 H 29 H 88 L 08/14/20 05:30 111 H 42 H 156/71 H 100 01/18/20 05:20 110 H 47 H 100 01/18/20 05:01 109 H 32 H 100 01/18/20 05:00 108 H 35 H 151/67 H 100 01/18/20 04:48 34 H 100 01/18/20 04:40 117 H 34 H 100 01/18/20 04:38 117 H 161/74 H 01/18/20 04:30 117 H 36 H 161/74 H 100 01/18/20 04:10 117 H 32 H 100 01/18/20 04:00 116 H 35 H 151/62 H 100 01/18/20 03:50 117 H 34 H 100 01/18/20 03:30 116 H 37 H 171/81 H 100 01/18/20 03:20 115 H 38 H 100 01/18/20 03:15 33 H 99 01/18/20 03:10 119 H 31 H 100 01/18/20 03:01 117 H 32 H 100 01/18/20 03:00 117 H 34 H 165/72 H 100 01/18/20 02:50 117 H 31 H 100 01/18/20 02:40 118 H 34 H 99 Laboratory Results Short CBC 01/18/20 01/18/20 Range/Units 01:45 04:54 WBC 9.06 (4.8-10.8) K/uL Hgb 7.9 L 7.4 L (12.0-16.0) g/dL Hct 24.2 L 23.0 L (37-47) % Plt Count 332 (130-400) K/uL BMP 01/18/20 01:45 Sodium 149 H Potassium 4.9 Chloride 115 H Carbon Dioxide 30 BUN 52 H Creatinine 1.47 H Glucose 218 H Calcium 9.2 Liver Function 01/18/20 Range/Units 01:45 Total Bilirubin 0.3 (0.2-1) mg/dl AST 75 H (15-37) U/L ALT 115 H (12-78) U/L Alkaline Phosphatase 502 H (45-117) U/L Albumin 2.1 L (3.4-5.0) gm/dl Urine 01/18/20 Range/Units 10:00 Urine Color Yellow Urine Appearance Clear (Clear) Urine pH 6.0 (4.5-7.5) Ur Specific [place] 1.025 (1.000-1.030) Urine Protein 3+ H (Negative) Urine Glucose (UA) 1+ H (Negative)
[2020-01-18] MEDS ORDERED: FUROSEMIDE 20 MG in SYRINGE 0 ML IV ONE (15:00)
[2020-01-18 16:07] LABS: Hematocrit (blood only) 28.6 % (37-47); Hemoglobin 9.3 g/dL (12.0-16.0)
[2020-01-18 20:12] LABS: Hematocrit (blood only) 27.4 % (37-47); Hemoglobin 9.1 g/dL (12.0-16.0)
--- NOTE | 2020-01-18 22:43 | Electrocardiogram Report ---
Test Reason : Blood Pressure : / mmHG Vent. Rate : 120 BPM Atrial Rate : 120 BPM P-R Int : 148 ms QRS Dur : 088 ms QT Int : 322 ms P-R-T Axes : 080 084 095 degrees QTc Int : 455 ms Sinus tachycardia Abnormal ECG When compared with ECG of 31-DEC-2019 22:32, T wave inversion now evident in Inferolateral leads Confirmed by Ej Zelaya ([id number]) on 01/18/2020 10:43:04 PM Referred By: REFERRED SELF Confirmed By:Ej Zelaya
[2020-01-19] MEDS ORDERED: cefTRIAXone SODIUM 1,000 MG in DEXTROSE 5% 50 ML IV SCH (03:00)
[2020-01-19 08:00] LABS: Basophils # (auto) 0.02 K/uL (0-0.2); Basophils % (auto) 0.2 %; Eosinophils # (auto) 0.06 K/uL (0-0.5); Eosinophils % (auto) 0.5 %; Hematocrit (blood only) 30.9 % (37-47); Immature Granulocytes # (auto) 0.04 K/uL (0.00-0.02); Immature Granulocytes % (auto) 0.4 %; Lymphocytes # (auto) 0.79 K/uL (1.2-3.4); Lymphocytes % (auto) 7.1 %; Mean Corpuscular Hemoglobin 32.3 pg (25-34); Mean Corpuscular Hgb Conc 32.4 g/dL (32-36); Mean Corpuscular Volume 99.7 fL (80-100); Mean Platelet Volume 10.1 fL (7.4-10.4); Monocytes # (auto) 0.66 K/uL (0.11-0.59); Monocytes % (auto) 5.9 %; Neutrophils # (auto) 9.54 K/uL (1.4-6.5); Neutrophils % (auto) 85.9 %; Platelet Count 315 K/uL (130-400); RDW Coefficient of Variation 16.9 % (11.5-14.5); RDW Standard Deviation 60.9 fL (36.4-46.3); White Blood Count 11.11 K/uL (4.8-10.8)
[2020-01-19] MEDS: methylPREDNISolone 40 MG in SYRINGE 0 ML IV SCH ×3 (08:25→21:03)
[2020-01-19] MEDS: COLLAGENASE OINT 30 GM TUBE EXT SCH (08:26)
[2020-01-19] MEDS: HEPARIN SOD 5,000 UNIT/0.5 ML VIAL SQ SCH ×2 (08:26→21:03)
[2020-01-19 08:32] LABS: Albumin Level 2.3 gm/dl (3.4-5.0); BUN Creatinine Ratio 38.7 (10-20); Calcium 9.7 mg/dl (8.5-10.1); Creatinine Clr Calc Pharmacy 19.4 ml/min; Est GFR (African American) 40.4; Est GFR (Non-African American) 34.8; Magnesium 2.2 mg/dl (1.8-2.4); Potassium 4.5 mmol/L (3.5-5.1)
[2020-01-19 08:37] LABS: Albumin Globulin Ratio 0.7 (0.9-2); Bilirubin,Total 0.5 mg/dl (0.2-1); Globulin 3.3 gm/dl (2.5-4.0); Total Protein 5.6 gm/dl (6.4-8.2)
[2020-01-19 08:46] LABS: Allen Test Pos (Pos); Base Excess ABG 1.5 mEq/L (-9-1.8); HCO3 ABG 28 mmol/L (19-24); PCO2 ABG 56 mmHg (35-46); PO2 ABG 82 mmHg (80-95); pH ABG 7.32 (7.35-7.45)
[2020-01-19] MEDS: INSULIN ASPART 100 UNITS/ML 3 ML PEN SC SCH ×4 (09:03→21:03)
[2020-01-19] MEDS: INSULIN GLARGINE SOLOSTAR 100 UNITS/ML 3 ML PEN SC SCH (09:11)
--- NOTE | 2020-01-19 09:13 | XRay Report ---
XR chest 1V portable CLINICAL HISTORY: Shortness of breath COMPARISON STUDY: 01/18/2020 FINDINGS: The heart is at the upper limits of normal in size. There are bilateral pleural effusions. There are progressive left basilar airspace opacities, atelectasis versus pneumonia. There is pulmona ry emphysema.[There is diffuse interstitial thickening. Clinical and radiographic follow-up is recomm ended. IMPRESSION: 1. Pulmonary emphysema 2. Bilateral pleural effusions 3. Progressive left basilar airspace opacities, atelectasis versus pneumonia ACT 112: Negative or not required by law. Electronically signed by: Cole Ro M.D. 01/19/2020 9:12 AM
[2020-01-19] MEDS: CLOPIDOGREL BISULFATE 75 MG TAB PO SCH (09:42)
[2020-01-19] MEDS: FLUTICASONE/VILANTEROL 100/25MCG 14 PUFFS/INHALER INH SCH (09:42)
[2020-01-19] MEDS: PANTOprazole 40 MG TAB PO SCH (09:42)
[2020-01-19] MEDS: FERROUS SULFATE 325 MG TAB PO SCH (09:42)
[2020-01-19] MEDS: DOXYCYCLINE HYCLATE 100 MG CAP PO SCH ×2 (09:43→21:03)
[2020-01-19] MEDS: METOPROLOL SUCC 50MG EXT REL TAB PO SCH (09:43)
[2020-01-19] MEDS: UMECLIDINIUM BROMIDE 62.5MCG/BLISTER 7 PUFFS/INHALER INH SCH (09:43)
[2020-01-19] MEDS: DOCUSATE SODIUM 100 MG CAP PO SCH ×2 (09:43→21:03)
[2020-01-19] MEDS: CEFEPIME 2,000 MG in SYRINGE 7.5 ML IV SCH (09:45)
[2020-01-19] MEDS ORDERED: FUROSEMIDE 20 MG in SYRINGE 0 ML IV ONE (09:45)
[2020-01-19] MEDS: LEVALBUTEROL 1.25MG/0.5ML NEB INH PRN (10:19)
[2020-01-19] MEDS: IPRATROPIUM BROMIDE NEB SOLN 0.02% 2.5 ML VIAL INH PRN (10:20)
--- NOTE | 2020-01-19 13:06 | Cardiology Consultation ---
Date of Consultation January 19, 2020 Assessment & Plan (1) Acute exacerbation of chronic obstructive pulmonary disease: Patient is an elderly extremely complex 79-year-old female as outlined. Her underlying history is notable for severe chronic obstructive lung disease/emphysema as well as diffuse atherosclerotic vascular disease. Patient admitted with worsening dyspnea multifactorial with component of chronic obstructive lung disease, of volume overload and symptomatic anemia superimposed on chronic hypoalbuminemia She is responding to diuretics and treatment of underlying pulmonary issues per patient description clinically Echocardiogram demonstrates a moderate size loculated pericardial effusion without overt tamponade Recommendations: Continue current treatments with additional dose of IV furosemide, 20 mg this afternoon overall maintain negative fluid balance. Continue metoprolol succinate, clopidogrel Add low-dose nitrates 1/2 inch every 6 for hypertension and preload reduction. May remove for relative hypotension, systolic blood pressure less than 110 We will repeat echocardiogram in the next day reassess pericardial effusion but in review not significantly changed from prior study of 2018, not likely continued contributing to current acute complaint (2) Acute on chronic respiratory failure with hypoxia and hypercapnia: (3) Peripheral arterial disease with history of revascularization: (4) Stage 4 chronic kidney disease: (5) Symptomatic anemia: (6) CAD (coronary artery disease): (7) Pericardial effusion without cardiac tamponade: (8) Hypoalbuminemia: History of Present Illness Reason for Consultation: Pericardial effusion, shortness of breath Requesting Physician: Dr. Michaud Attending Physician: Beto Michaud MD History of Present Illness Patient is a an 79-year-old female with complex history which includes 1. Severe COPD/emphysema O2 dependent with recent discontinue of longstanding tobacco use 2. Diffuse atherosclerotic vascular disease 3. Atherosclerotic coronary disease status post left circumflex stent 2008 with noted chronic right coronary occlusion with and mild left ventricular dysfunction EF 45-50% 4. Atherosclerotic peripheral vascular disease status post aortofemoral bypass graft, November 2001, right femoral artery aneurysm repair, right femoropopliteal bypass 2013 5. Atherosclerotic carotid disease status post left carotid enterectomy 2001, left carotid artery stenting November 2002 6. Chronic stage IV kidney disease 7. Hypertension 8. Type 2 diabetes mellitus with nephropathy, proteinuria 9. Hyperlipidemia on therapy Patient is referred for further evaluation with recent complex history. She notes hospitalization following a mechanical fall with recent discharge Patient re-presents with worsening cough with inability to clear sputum and shortness of breath. Patient in moderate respiratory failure on presentation treated with BiPAP though with poor tolerance. Patient referred for evaluation of pleural effusions, elevated BNP, moderate- sized pericardial effusion loculated Currently denies chest pains, tachypalpitations, dizziness. Weight has been trending slightly upward over the past months time but no overt edema. Mild abdominal distention present Patient notes no overt bleeding issues although chronically anemic. Appetite only fair Since admission patient has received IV antibiotics single dose IV furosemide 20 mg x 2 as well as 1 unit packed red cells for hemoglobin of 7.4 on presentation Patient currently feels less respiratory distress but attributes this to having had BiPAP removed, still with rhonchorous cough Allergies Allergy/AdvReac Type Severity Reaction Status Date / Time codeine Allergy Mild Unknown Verified 01/18/20 01:19 amoxicillin Allergy Unknown unknown Verified 01/18/20 01:19 aspirin Allergy Unknown UNKNOWN Verified 01/18/20 01:19 bacitracin Allergy Unknown Rash Verified 01/18/20 01:19 isosorbide Allergy Unknown unknown Verified 01/18/20 01:19 neomycin Allergy Unknown Rash Verified 01/18/20 01:19 polymyxin B Allergy Unknown Rash Verified 01/18/20 01:19 Home Medications Home Medications Medication Instructions Recorded Confirmed Type Combivent Respimat 1 puff INHALATION QID 05/01/19 01/18/20 History Tradjenta 5 mg PO DAILY 05/01/19 01/18/20 History albuterol sulfate [Ventolin HFA] 2 puff INHALATION Q6H PRN 05/01/19 01/18/20 History atorvastatin 80 mg PO DAILY 05/01/19 01/18/20 History budesonide-formoterol [Symbicort] 2 puff INHALATION BID 05/01/19 01/18/20 History clopidogrel 75 mg PO DAILY 05/01/19 01/18/20 History ipratropium-albuterol 3 ml INHALATION Q4H PRN 05/01/19 01/18/20 History metoprolol succinate 100 mg PO DAILY 05/01/19 01/18/20 History mirtazapine 7.5 mg PO HS 05/01/19 01/18/20 History pantoprazole 20 mg PO DAILY 05/01/19 01/18/20 History ferrous sulfate 325 mg PO QAM #30 tab 12/31/19 01/18/20 Rx hydrochlorothiazide 25 mg PO QAM #30 tab 12/31/19 01/18/20 Rx collagenase clostridium histo. 1 applic EXT DAILY #1 tube 01/16/20 01/18/20 Rx [Santyl] doxycycline hyclate 100 mg PO BID #7 cap 01/16/20 01/18/20 Rx white petrolatum-mineral oil 1 applic EXT UD PRN #1 tube 01/16/20 01/18/20 Rx [Dermacerin] Patient History Medical History CAD (coronary artery disease) "NSTEMI 01/2009 - BMS to distal left circumflex, cath at that time showed 100% proximal RCA occlusion" CHF (congestive heart failure) CKD (chronic kidney disease), stage IV COPD, severe "oxygen requiring" DM type 2 (diabetes mellitus, type 2) Dyslipidemia Femoral artery aneurysm, right "s/p repair" GERD (gastroesophageal reflux disease) HTN (hypertension) Hypercalcemia Iron deficiency anemia Ischemic cardiomyopathy "echo 04/2015- EF 50-55%, grade I diastolic dysfunction" On 05/02/15 18:17 Adele Mathur wrote "echo 2010 - EF 45-50%, grade I diastolic dysfunction" Nocturnal hypoxemia Peripheral arterial disease with history of revascularization PVD (peripheral vascular disease) Surgical History H/O aorto-femoral bypass History of hysterectomy Hx of appendectomy Hx of cataract surgery S/P carotid endarterectomy "left in 2001, left carotid stent placed 2002" S/P femoral-popliteal bypass surgery Family History Other Heart disease Denies family history of Diabetes COPD (chronic obstructive pulmonary disease) Social History Smoking Status: Former smoker Second Hand Exposure: No; Do You Dip or Chew Tobacco: No; Tobacco Cessation Education Requested by Patient: No Hx Alcohol Use: No Hx Substance Use: No Preferred Language: Andorran Communication Ability: Effective Care Manager Cna Required: No Beliefs That Will Affect Care: None marital status: / Current Living Situation: Alone Other Information That Helps Us Care for You: No Feels Safe at Home: Yes Safety Concerns: Feels Safe At This Time Review of Systems Review of Systems: All systems reviewed & are unremarkable except as noted in HPI & below Physical Exam Constitutional: + thin and + cachectic Moderately dyspneic at rest Eyes: PERRL, conjunctivae normal, anicteric sclerae ENMT: external ear and nose normal, oropharynx normal Neck: trachea midline, no thyromegaly Respiratory: Auscultation: + diminished lung sounds and + wheezes Coarse rhonchi anteriorly worse with cough Cardiovascular: Rate/Rhythm: regular rate and + tachycardic (With distant heart sounds) Vessels: + JVD Extremities: + edema (Trace) Gastrointestinal (Abdomen): Percussion/Palpation: abdomen soft; abdomen nontender and no hepatosplenomegaly Skin: Bandaged right lower extremity Neurologic: PERRL, EOMI, accommodation nl, no face palsy, no dysarthria Results & Data ([facility]) Vital Signs (Past 12 Hours) Vital Signs Temp Pulse Pulse Resp BP Pulse Ox 01/19/20 11:46 36.8 C 90 22 179/80 H 93 01/19/20 10:24 97 H 29 H 97 01/19/20 10:20 97 H 29 H 97 01/19/20 08:56 85 01/19/20 08:06 36.8 C 84 21 167/67 H 97 01/19/20 07:20 94 H 32 H 94 01/19/20 04:09 36.7 C 81 18 165/68 H 99 Laboratory Results Laboratory Results - last 24 hr 01/18/20 01/18/20 01/18/20 04:54 15:53 16:10 WBC RBC Hgb 9.3 L Hct 28.6 L MCV MCH MCHC RDW Std Deviation RDW Coeff of Leslie Plt Count MPV Immature Gran % (Auto) Neut % (Auto) Lymph % (Auto) [place] % (Auto) Eos % (Auto) Baso % (Auto) Neut # (Auto) Lymph # (Auto) [place] # (Auto) Eos # (Auto) Baso # (Auto) Immature Gran # (Auto) Peripher Smr Path Cons ABG pH ABG pCO2 ABG pO2 ABG HCO3 ABG O2 Saturation ABG Base Excess Arias Test Barometric Pressure Oxygen Given Sodium Potassium Chloride Carbon Dioxide Anion Gap BUN Creatinine Est Cr Clr Drug Dosing Est GFR ( Amer) Est GFR (Non-Af Amer) BUN/Creatinine Ratio Glucose POC Glucose 135 H Calcium Magnesium Total Bilirubin AST ALT Alkaline Phosphatase NT-Pro-B Natriuret Pep Total Protein Albumin Globulin Albumin/Globulin Ratio Procalcitonin Crossmatch See Detail 01/18/20 01/18/20 01/19/20 20:03 20:19 07:36 WBC 11.11 H RBC 3.10 L Hgb 9.1 L 10.0 L Hct 27.4 L 30.9 L MCV 99.7 MCH 32.3 MCHC 32.4 RDW Std Deviation 60.9 H RDW Coeff of Leslie 16.9 H Plt Count 315 MPV 10.1 Immature Gran % (Auto) 0.4 Neut % (Auto) 85.9 Lymph % (Auto) 7.1 [place] % (Auto) 5.9 Eos % (Auto) 0.5 Baso % (Auto) 0.2 Neut # (Auto) 9.54 H Lymph # (Auto) 0.79 L [place] # (Auto) 0.66 H Eos # (Auto) 0.06 Baso # (Auto) 0.02 Immature Gran # (Auto) 0.04 H Peripher Smr Path Cons Pending ABG pH ABG pCO2 ABG pO2 ABG HCO3 ABG O2 Saturation ABG Base Excess Arias Test Barometric Pressure Oxygen Given Sodium Potassium Chloride Carbon Dioxide Anion Gap BUN Creatinine Est Cr Clr Drug Dosing Est GFR ( Amer) Est GFR (Non-Af Amer) BUN/Creatinine Ratio Glucose POC Glucose 157 H Calcium Magnesium Total Bilirubin AST ALT Alkaline Phosphatase NT-Pro-B Natriuret Pep Total Protein Albumin Globulin Albumin/Globulin Ratio Procalcitonin Crossmatch 01/19/20 01/19/20 01/19/20 07:36 07:36 07:43 WBC RBC Hgb Hct MCV MCH MCHC RDW Std Deviation RDW Coeff of Leslie Plt Count MPV Immature Gran % (Auto) Neut % (Auto) Lymph % (Auto) [place] % (Auto) Eos % (Auto) Baso % (Auto) Neut # (Auto) Lymph # (Auto) [place] # (Auto) Eos # (Auto) Baso # (Auto) Immature Gran # (Auto) Peripher Smr Path Cons ABG pH ABG pCO2 ABG pO2 ABG HCO3 ABG O2 Saturation ABG Base Excess Arias Test Barometric Pressure Oxygen Given Sodium 146 H Potassium 4.5 Chloride 113 H Carbon Dioxide 29 Anion Gap 4.0 BUN 55 H Creatinine 1.41 H Est Cr Clr Drug Dosing 19.4 Est GFR ( Amer) 40.4 Est GFR (Non-Af Amer) 34.8 BUN/Creatinine Ratio 38.7 H Glucose 93 POC Glucose 102 H Calcium 9.7 Magnesium 2.2 Total Bilirubin 0.5 AST 70 H ALT 116 H Alkaline Phosphatase 481 H NT-Pro-B Natriuret Pep 90256 H Total Protein 5.6 L Albumin 2.3 L Globulin 3.3 Albumin/Globulin Ratio 0.7 L Procalcitonin 0.79 H Crossmatch 01/19/20 01/19/20 08:24 11:21 WBC RBC Hgb Hct MCV MCH MCHC RDW Std Deviation RDW Coeff of Leslie Plt Count MPV Immature Gran % (Auto) Neut % (Auto) Lymph % (Auto) [place] % (Auto) Eos % (Auto) Baso % (Auto) Neut # (Auto) Lymph # (Auto) [place] # (Auto) Eos # (Auto) Baso # (Auto) Immature Gran # (Auto) Peripher Smr Path Cons ABG pH 7.32 L ABG pCO2 56 H ABG pO2 82 ABG HCO3 28 H ABG O2 Saturation 95.0 ABG Base Excess 1.5 Arias Test Pos Barometric Pressure 732.2 Oxygen Given 30% Sodium Potassium Chloride Carbon Dioxide Anion Gap BUN Creatinine Est Cr Clr Drug Dosing Est GFR ( Amer) Est GFR (Non-Af Amer) BUN/Creatinine Ratio Glucose POC Glucose 71 Calcium Magnesium Total Bilirubin AST ALT Alkaline Phosphatase NT-Pro-B Natriuret Pep Total Protein Albumin Globulin Albumin/Globulin Ratio Procalcitonin Crossmatch
--- NOTE | 2020-01-19 13:14 | Ultrasound Report ---
US liver CLINICAL HISTORY: Transaminitis COMPARISON STUDY: CT scan dated 01/18/2020 FINDINGS: The study was difficult from a technical standpoint. The patient coughed repeatedly during the examin ation and had difficulty with breath-holding. No hepatic masses are visualized. There is intrahepatic biliary ductal dilatation. There is trace perihepatic fluid. Multiple gallstones are visualized. There is no significant gallbladder wall thickening. The common bile duct is dilated measuring 8 mm. Distal common bile duct calculi are suspected. There is no right-sided hydronephrosis. There is a lower pole right renal cyst. There is a right pleural effusion. There is a pericardial effusion. IMPRESSION: 1. Cholelithiasis 2. Mildly dilated common bile duct. 3. Suspected choledocholithiasis 4. Mild intrahepatic biliary ductal dilatation 5. Small right pleural effusion 6. Small pericardial effusion 7. Trace ascites ACT 112: Negative or not required by law. Electronically signed by: Cole Ro M.D. 01/19/2020 1:12 PM
[2020-01-19] MEDS ORDERED: FUROSEMIDE 20 MG in SYRINGE 0 ML IV SCH (13:45)
[2020-01-19] MEDS: NITROGLYCERIN 2% OINTMENT 30GM TUBE EXT SCH ×2 (13:58→21:03)
[2020-01-19] MEDS ORDERED: AZITHROMYCIN 250 MG TAB PO ONE (14:12)
--- NOTE | 2020-01-19 14:13 | Pulmonology Progress Note ---
Date of Service January 19, 2020 Assessment & Plan (1) Acute on chronic respiratory failure with hypoxia and hypercapnia: CT chest 01/18/2020: Severe centrilobular emphysema appreciated mostly on the upper lobes, bilateral pleural effusion, there is bilateral lower lobe atelectasis more on the left side. Superimposed pneumonia cannot be excluded on the left lower lobe. Pulmonary artery seems to be enlarged. --Acute on chronic hypercapnic hypoxic respiratory failure Etiology multifactorial COPD exacerbation --> continue with Solu-Medrol, inhaled bronchodilator, antibiotic as anti-inflammatory effect Diastolic CHF with bilateral pleural effusion--> continue with diuresis as tolerated O2 supplementation to keep oxygen saturation between 88-92% --Bilateral pleural effusion with pericardial effusion Likely from underlying heart failure, diastolic Hypoalbuminemia may also be playing a role --> needs good nutrition support. --COPD/emphysema severe For COPD patient is to be on triple therapy at home. Would recommend Trelegy inhaler on a daily basis when discharged --DNI Plan: I think patient is claustrophobic to BiPAP mask. We will try rather high flow to see if it helps her keep O2 saturation between 88 to 92%. Patient does not want to be intubated even if it is a question of life and . Increase Solu-Medrol to 40 mg every 8 hours. DuoNebs every 6 hours [id number]. Continue with Incruse and Breo. Diuretics to keep negative balance Please note the above document was generated using voice recognition software. It may contain grammatical, syntax or spelling errors. Admission and Anticipated Discharge Date Admission Date: January 18, 2020 Subjective Patient seen and examined at bedside. Was on BiPAP at the time of examination. In the morning she was complaining of shortness of breath lethargy and she was kept on BiPAP. At time of examination patient was talking in full sentences saying that she is not comfortable with BiPAP and wants to eat. She was breathing in the low 30s at the time of examination but getting good tidal volumes and talking in full sentences. I think she will has issues with anxiety when it comes to BiPAP. Denies any chest pain, no headache, no dizziness, no palpitation. Review of Systems Review of Systems: All systems reviewed & are unremarkable except as noted in Subjective Physical Exam Physical Exam: Constitutional: No acute distress, frail-appearing HEENT: EOMI, PERRLA Respiratory system: Decreased air entry bilaterally, no wheeze, no rhonchi, mild crackles bilateral lower lobes CVS: S1-S2 positive, no murmurs or gallops Abdomen: Soft, nontender, nondistended, positive bowel sounds x4 Extremities: +2 pulses bilaterally radialis/ dorsalis pedis, no cyanosis, +2 pitting edema bilateral lower extremity Neuro: Awake alert oriented x3 Psych: Normal mood and affect G/U: No Perez Skin: no rashes, warm and dry Lymphatic: no cervical or axillary lymphadenopathy Results & Data Results & Data ([facility]) Vital Signs (Past 12 Hours) Vital Signs Temp Pulse Pulse Resp BP Pulse Ox 01/19/20 13:30 92 H 20 100 01/19/20 11:46 36.8 C 90 22 179/80 H 93 01/19/20 10:24 97 H 29 H 97 01/19/20 10:20 97 H 29 H 97 01/19/20 08:56 85 01/19/20 08:06 36.8 C 84 21 167/67 H 97 01/19/20 07:20 94 H 32 H 94 01/19/20 04:09 36.7 C 81 18 165/68 H 99 01/19/20 07:36 01/19/20 07:36 PG Care Time/CCT Total # of Minutes Spent Total Time Spent with Patient: Total time spent is greater than 50% in coordination of care (as documented) at patient's floor/unit and/or counseling patient: Coding Level of Care Code 35534 Subseq Hosp Care Lvl 3 Diagnoses Acute on chronic respiratory failure with hypoxia and hypercapnia J96.21; J96.22
[2020-01-19] MEDS: CARBOHYDRATES FOR HYPOGLYCEMIA PO PRN (16:53)
--- NOTE | 2020-01-19 17:36 | Hospitalist Progress Note ---
Date of Service January 19, 2020 Assessment & Plan (1) Acute on chronic respiratory failure with hypoxia and hypercapnia: Acute on chronic hypoxic, hypercapnic respiratory failure Multifactorial Possible Healthcare associated pneumonia Acute diastolic CHF Exacerbation with B/L Pleural Effusion Acute on Chronic COPD Exacerbation Hypoalbuminemia Volume overload Pericardial Effusion --CT: Advanced emphysema. Mild cardiac enlargement noting a moderate pericardial effusion. Small to moderate pleural effusions with bibasilar consolidation. This likely represents atelectasis. Correlate clinically for evidence of superimposed pneumonia. There is trace abdominopelvic ascites. Cholelithiasis. Bladder distention. Colonic diverticulosis without clear CT evidence of acute diverticulitis. Moderate constipation. Body wall edema. ECHO:Reviewed --Continue broad spectrum Antibiotics--Cefepime, Doxy --Continue Supplemental oxygen as needed --On Solu-medrol, Nebs --Appreciate Pulmonology/Cardiology Input --Continue IV lasix --Added Topical Nitrates --Monitor Volume status closely --Automatic Oven Operator consulted --Monitor I/Os, daily weight --Monitor electrolytes, renal function Hypomagnesemia Replete electrolytes as needed Cholelithiasis Choledocholithiasis Transaminitis Trace ascites Liver USD:Cholelithiasis. Mildly dilated common bile duct. Suspected choledocholithiasis. Mild intrahepatic biliary ductal dilatation. Small right pleural effusion. Small pericardial effusion. Trace ascites. Likely due to hepatic congestion from volume overload contributing CT ABD as above Monitor LFTs Appreciate GI Input Needs MRCP when Cardio/Pulmonary status improves Hypertension Continue Metoprolol Added Topical Nitrates H/O CAD PVD S/P surgery Continue Plavix, metoprolol, statin DM Type II Last HbA1C:6.05 December 2019 Continue Insulin therapy while hospitalized Monitor BGs CKD IV Baseline Cr ~ 2.0 as per prior Nephrology note Monitor renal function Cr at baseline Acute on Chronic Anemia Partly dilutional due to volume overload Secondary to CKD Transfuse PRBCs as needed Denies active bleeding issues Monitor CBC Chronic RLE wound Continue wound care Malnutrition: BMI 16 Nutrition consulted DVT Px: Heparin SQ Code Status DNI only as per my discussion with patient Admission and Anticipated Discharge Date Admission Date: January 18, 2020 Subjective Patient is seen and examined at bedside In respiratory distress this morning Initially on Bipap, later transitioned to High Flow Received Lasix Reports cough Denies chest pain, dizziness, nausea Discussed with Pulm, Cardiology and GI today Liver USD showed Cholelithiasis and possible choledocholithiasis Review of Systems Review of Systems: All systems reviewed & are unremarkable except as noted in HPI & below Physical Exam Physical Exam: Physical Exam: Vitals signs as noted above General Appearance:Thin, Frail, no apparent distress Head: normocephalic, Atraumatic Eyes: normal inspection, EOMI Neck: supple, Trachea midline Respiratory/Chest: Decreased breath sounds, crackles at bases Cardiovascular: S1, S2, No murmur Abdomen/GI:Soft, Non tender, Bowel sounds present Extremities/Musculoskelatal:normal inspection, B/L LE edema, RLE wound in dressing Neurologic/Psych:AAOX3, grossly no focal neurological deficits Skin: normal color, warm Results & Data Results & Data ([facility]) Vital Signs (Past 12 Hours) Vital Signs Temp Pulse Pulse Resp BP Pulse Ox 01/19/20 15:12 92 H 20 99 01/19/20 13:30 92 H 20 100 01/19/20 11:46 36.8 C 90 22 179/80 H 93 01/19/20 10:24 97 H 29 H 97 01/19/20 10:20 97 H 29 H 97 01/19/20 08:56 85 01/19/20 08:06 36.8 C 84 21 167/67 H 97 01/19/20 07:20 94 H 32 H 94 Laboratory Results Short CBC 01/18/20 01/19/20 Range/Units 20:03 07:36 WBC 11.11 H (4.8-10.8) K/uL Hgb 9.1 L 10.0 L (12.0-16.0) g/dL Hct 27.4 L 30.9 L (37-47) % Plt Count 315 (130-400) K/uL [facility] 01/19/20 07:36 Sodium 146 H Potassium 4.5 Chloride 113 H Carbon Dioxide 29 BUN 55 H Creatinine 1.41 H Glucose 93 Calcium 9.7 Liver Function 01/19/20 Range/Units 07:36 Total Bilirubin 0.5 (0.2-1) mg/dl AST 70 H (15-37) U/L ALT 116 H (12-78) U/L Alkaline Phosphatase 481 H (45-117) U/L Albumin 2.3 L (3.4-5.0) gm/dl
[2020-01-19] MEDS: ALBUT/IPRATROP 3MG/0.5MG NEB 3 ML VIAL NEB SCH (19:02)
[2020-01-20] MEDS: ALBUT/IPRATROP 3MG/0.5MG NEB 3 ML VIAL NEB SCH ×4 (01:22→18:09)
[2020-01-20] MEDS: NITROGLYCERIN 2% OINTMENT 30GM TUBE EXT SCH ×5 (01:50→23:35)
[2020-01-20] MEDS: methylPREDNISolone 40 MG in SYRINGE 0 ML IV SCH ×2 (06:06→20:20)
[2020-01-20 06:37] LABS: Hematocrit (blood only) 29.6 % (37-47); Hemoglobin 9.5 g/dL (12.0-16.0); Mean Corpuscular Hgb Conc 32.1 g/dL (32-36); Mean Corpuscular Volume 96.7 fL (80-100); Mean Platelet Volume 10.4 fL (7.4-10.4); Platelet Count 309 K/uL (130-400); RDW Coefficient of Variation 16.4 % (11.5-14.5); RDW Standard Deviation 57.1 fL (36.4-46.3); Red Blood Count 3.06 M/uL (4.2-5.4); White Blood Count 10.23 K/uL (4.8-10.8)
--- NOTE | 2020-01-20 07:07 | Gastrointestinal Consultation ---
Date of Consultation January 20, 2020 Assessment & Plan (1) Abnormal LFTs: Doubt she has choledocholithiasis, she may have congestive hepatopathy, however her LFTs are trending down today which is reassuring. No signs of cholangitis. Optimally she would benefit from EUS/ERCP but this would not be possible now due to her ongoing respiratory distress and high Oxygen requirement and she is DNI. Would continue to monitor her LFTs. Recall GI if her cardiopulmonary status is stable. History of Present Illness Attending Physician: Beto Michaud MD History of Present Illness 79 years old female patient with COPD and CHF, admitted with exacerbation and acute respiratory failure, currently on high flow oxygen and diuresis and steroids for COPD. Incidentally had elevated LFTs hence sono obtained and showed CBD of 8 mm with ? CBD stone. Patient denies any abdominal pain, nausea or vomiting. No fever or chills. Allergies Allergy/AdvReac Type Severity Reaction Status Date / Time codeine Allergy Mild Unknown Verified 01/18/20 01:19 amoxicillin Allergy Unknown unknown Verified 01/18/20 01:19 aspirin Allergy Unknown UNKNOWN Verified 01/18/20 01:19 bacitracin Allergy Unknown Rash Verified 01/18/20 01:19 isosorbide Allergy Unknown unknown Verified 01/18/20 01:19 neomycin Allergy Unknown Rash Verified 01/18/20 01:19 polymyxin B Allergy Unknown Rash Verified 01/18/20 01:19 Home Medications Home Medications Medication Instructions Recorded Confirmed Type Combivent Respimat 1 puff INHALATION QID 05/01/19 01/18/20 History Tradjenta 5 mg PO DAILY 05/01/19 01/18/20 History albuterol sulfate [Ventolin HFA] 2 puff INHALATION Q6H PRN 05/01/19 01/18/20 History atorvastatin 80 mg PO DAILY 05/01/19 01/18/20 History budesonide-formoterol [Symbicort] 2 puff INHALATION BID 05/01/19 01/18/20 History clopidogrel 75 mg PO DAILY 05/01/19 01/18/20 History ipratropium-albuterol 3 ml INHALATION Q4H PRN 05/01/19 01/18/20 History metoprolol succinate 100 mg PO DAILY 05/01/19 01/18/20 History mirtazapine 7.5 mg PO HS 05/01/19 01/18/20 History pantoprazole 20 mg PO DAILY 05/01/19 01/18/20 History ferrous sulfate 325 mg PO QAM #30 tab 12/31/19 01/18/20 Rx hydrochlorothiazide 25 mg PO QAM #30 tab 12/31/19 01/18/20 Rx collagenase clostridium histo. 1 applic EXT DAILY #1 tube 01/16/20 01/18/20 Rx [Santyl] doxycycline hyclate 100 mg PO BID #7 cap 01/16/20 01/18/20 Rx white petrolatum-mineral oil 1 applic EXT UD PRN #1 tube 01/16/20 01/18/20 Rx [Dermacerin] Patient History Medical History CAD (coronary artery disease) "NSTEMI 01/2009 - BMS to distal left circumflex, cath at that time showed 100% proximal RCA occlusion" CHF (congestive heart failure) CKD (chronic kidney disease), stage IV COPD, severe "oxygen requiring" DM type 2 (diabetes mellitus, type 2) Dyslipidemia Femoral artery aneurysm, right "s/p repair" GERD (gastroesophageal reflux disease) HTN (hypertension) Hypercalcemia Iron deficiency anemia Ischemic cardiomyopathy "echo 04/2015- EF 50-55%, grade I diastolic dysfunction" On 05/02/15 18:17 Adele Mathur wrote "echo 2010 - EF 45-50%, grade I diastolic dysfunction" Nocturnal hypoxemia Peripheral arterial disease with history of revascularization PVD (peripheral vascular disease) Surgical History H/O aorto-femoral bypass History of hysterectomy Hx of appendectomy Hx of cataract surgery S/P carotid endarterectomy "left in 2001, left carotid stent placed 2002" S/P femoral-popliteal bypass surgery Family History Other Heart disease Denies family history of Diabetes COPD (chronic obstructive pulmonary disease) Social History Smoking Status: Former smoker Second Hand Exposure: No; Do You Dip or Chew Tobacco: No; Tobacco Cessation Education Requested by Patient: No Hx Alcohol Use: No Hx Substance Use: No Preferred Language: [place] Communication Ability: Effective University Lecturer Required: No Beliefs That Will Affect Care: None marital status: / Current Living Situation: Alone Other Information That Helps Us Care for You: No Feels Safe at Home: Yes Safety Concerns: Feels Safe At This Time Review of Systems Constitutional: no fever, no chills, no fatigue and no weight loss Eyes: no eye pain and no worsening vision Ear, Nose, Mouth, Throat: no tinnitus, no dizziness, no nasal discharge and no epistaxis Respiratory: + dyspnea; no dyspnea on exertion and no wheezing Cardiovascular: no chest pain, no orthopnea, no palpitations and no edema Gastrointestinal: as per Subjective / HPI Genitourinary: no dysuria, no urinary frequency, no urinary incontinence and no hematuria Musculoskeletal: no stiffness and no myalgia Neurologic: no localized weakness, no paralysis, no tremor(s) and no headache (s) Endocrine: no polydipsia and no polyuria Hematologic / Lymphatic: no easy bleeding and no night sweats Physical Exam Constitutional: + well hydrated and cooperative; + uncomfortable Eyes: PERRL, conjunctivae normal, anicteric sclerae ENMT: external ear and nose normal, oropharynx normal Neck: normal visual inspection and trachea midline Respiratory: + respiratory distress and + labored breathing Auscultation: no wheezes Cardiovascular: RRR, no murmur, no edema Gastrointestinal (Abdomen): normal bowel sounds, soft, nontender, no hepa tosplenomegaly Musculoskeletal: no cyanosis or clubbing, extremities motor strength 5/5 Skin: no rashes, warm and dry Neurologic: awake; no focal motor deficits Motor/Sensory: no tremor Results & Data ([facility]) Vital Signs (Past 12 Hours) Vital Signs Temp Pulse Pulse Resp BP BP Pulse Ox 01/20/20 04:22 98 H 22 92 01/20/20 04:03 36.9 C 94 H 19 137/61 94 01/20/20 02:40 91 H 24 96 01/20/20 01:20 89 86 36 H 94 01/19/20 23:37 79 18 91 01/19/20 23:11 36.7 C 76 26 H 160/70 H 90 01/19/20 19:14 36.7 C 87 20 149/65 H 98 Laboratory Results Laboratory Results - last 24 hr 01/19/20 01/19/20 01/19/20 07:36 07:36 07:36 WBC 11.11 H RBC 3.10 L Hgb 10.0 L Hct 30.9 L MCV 99.7 MCH 32.3 MCHC 32.4 RDW Std Deviation 60.9 H RDW Coeff of Leslie 16.9 H Plt Count 315 MPV 10.1 Immature Gran % (Auto) 0.4 Neut % (Auto) 85.9 Lymph % (Auto) 7.1 [place] % (Auto) 5.9 Eos % (Auto) 0.5 Baso % (Auto) 0.2 Neut # (Auto) 9.54 H Lymph # (Auto) 0.79 L [place] # (Auto) 0.66 H Eos # (Auto) 0.06 Baso # (Auto) 0.02 Immature Gran # (Auto) 0.04 H Peripher Smr Path Cons Pending ABG pH ABG pCO2 ABG pO2 ABG HCO3 ABG O2 Saturation ABG Base Excess Arias Test Barometric Pressure Oxygen Given Sodium 146 H Potassium 4.5 Chloride 113 H Carbon Dioxide 29 Anion Gap 4.0 BUN 55 H Creatinine 1.41 H Est Cr Clr Drug Dosing 19.4 Est GFR ( Amer) 40.4 Est GFR (Non-Af Amer) 34.8 BUN/Creatinine Ratio 38.7 H Glucose 93 POC Glucose Calcium 9.7 Magnesium 2.2 Total Bilirubin 0.5 AST 70 H ALT 116 H Alkaline Phosphatase 481 H NT-Pro-B Natriuret Pep 70920 H Total Protein 5.6 L Albumin 2.3 L Globulin 3.3 Albumin/Globulin Ratio 0.7 L Procalcitonin 0.79 H 01/19/20 01/19/20 01/19/20 08:24 11:21 16:50 WBC RBC Hgb Hct MCV MCH MCHC RDW Std Deviation RDW Coeff of Leslie Plt Count MPV Immature Gran % (Auto) Neut % (Auto) Lymph % (Auto) [place] % (Auto) Eos % (Auto) Baso % (Auto) Neut # (Auto) Lymph # (Auto) [place] # (Auto) Eos # (Auto) Baso # (Auto) Immature Gran # (Auto) Peripher Smr Path Cons ABG pH 7.32 L ABG pCO2 56 H ABG pO2 82 ABG HCO3 28 H ABG O2 Saturation 95.0 ABG Base Excess 1.5 Arias Test Pos Barometric Pressure 732.2 Oxygen Given 30% Sodium Potassium Chloride Carbon Dioxide Anion Gap BUN Creatinine Est Cr Clr Drug Dosing Est GFR ( Amer) Est GFR (Non-Af Amer) BUN/Creatinine Ratio Glucose POC Glucose 71 60 L* Calcium Magnesium Total Bilirubin AST ALT Alkaline Phosphatase NT-Pro-B Natriuret Pep Total Protein Albumin Globulin Albumin/Globulin Ratio Procalcitonin 01/19/20 01/19/20 01/19/20 16:51 17:12 20:39 WBC RBC Hgb Hct MCV MCH MCHC RDW Std Deviation RDW Coeff of Leslie Plt Count MPV Immature Gran % (Auto) Neut % (Auto) Lymph % (Auto) [place] % (Auto) Eos % (Auto) Baso % (Auto) Neut # (Auto) Lymph # (Auto) [place] # (Auto) Eos # (Auto) Baso # (Auto) Immature Gran # (Auto) Peripher Smr Path Cons ABG pH ABG pCO2 ABG pO2 ABG HCO3 ABG O2 Saturation ABG Base Excess Arias Test Barometric Pressure Oxygen Given Sodium Potassium Chloride Carbon Dioxide Anion Gap BUN Creatinine Est Cr Clr Drug Dosing Est GFR ( Amer) Est GFR (Non-Af Amer) BUN/Creatinine Ratio Glucose POC Glucose 62 L* 82 246 H Calcium Magnesium Total Bilirubin AST ALT Alkaline Phosphatase NT-Pro-B Natriuret Pep Total Protein Albumin Globulin Albumin/Globulin Ratio Procalcitonin 01/20/20 01/20/20 05:49 05:49 WBC 10.23 RBC 3.06 L Hgb 9.5 L Hct 29.6 L MCV 96.7 MCH 31.0 MCHC 32.1 RDW Std Deviation 57.1 H RDW Coeff of Leslie 16.4 H Plt Count 309 MPV 10.4 Immature Gran % (Auto) Neut % (Auto) Lymph % (Auto) [place] % (Auto) Eos % (Auto) Baso % (Auto) Neut # (Auto) Lymph # (Auto) [place] # (Auto) Eos # (Auto) Baso # (Auto) Immature Gran # (Auto) Peripher Smr Path Cons ABG pH ABG pCO2 ABG pO2 ABG HCO3 ABG O2 Saturation ABG Base Excess Arias Test Barometric Pressure Oxygen Given Sodium 144 Potassium 4.6 Chloride 110 H Carbon Dioxide 29 Anion Gap 5.0 BUN 62 H Creatinine 1.67 H Est Cr Clr Drug Dosing 16.3 Est GFR ( Amer) 32.9 Est GFR (Non-Af Amer) 28.4 BUN/Creatinine Ratio 37.1 H Glucose 198 H POC Glucose Calcium 9.0 Magnesium Total Bilirubin 0.4 AST 48 H ALT 102 H Alkaline Phosphatase 407 H NT-Pro-B Natriuret Pep Total Protein 5.0 L Albumin 1.9 L Globulin 3.1 Albumin/Globulin Ratio 0.6 L Procalcitonin
[2020-01-20 07:12] LABS: Albumin Level 1.9 gm/dl (3.4-5.0); BUN Creatinine Ratio 37.1 (10-20); Creatinine Clr Calc Pharmacy 16.3 ml/min; Est GFR (African American) 32.9; Est GFR (Non-African American) 28.4; Potassium 4.6 mmol/L (3.5-5.1)
[2020-01-20 07:14] LABS: Albumin Globulin Ratio 0.6 (0.9-2); Bilirubin,Total 0.4 mg/dl (0.2-1); Globulin 3.1 gm/dl (2.5-4.0)
[2020-01-20] MEDS: DOCUSATE SODIUM 100 MG CAP PO SCH ×2 (08:04→20:20)
[2020-01-20] MEDS: FERROUS SULFATE 325 MG TAB PO SCH (08:05)
[2020-01-20] MEDS: PANTOprazole 40 MG TAB PO SCH (08:05)
[2020-01-20] MEDS: CLOPIDOGREL BISULFATE 75 MG TAB PO SCH (08:05)
[2020-01-20] MEDS: AZITHROMYCIN 250 MG TAB PO SCH (08:05)
[2020-01-20] MEDS: HEPARIN SOD 5,000 UNIT/0.5 ML VIAL SQ SCH ×2 (08:05→20:28)
[2020-01-20] MEDS: METOPROLOL SUCC 50MG EXT REL TAB PO SCH (08:05)
[2020-01-20] MEDS: INSULIN GLARGINE SOLOSTAR 100 UNITS/ML 3 ML PEN SC SCH (08:06)
[2020-01-20] MEDS: UMECLIDINIUM BROMIDE 62.5MCG/BLISTER 7 PUFFS/INHALER INH SCH (08:06)
[2020-01-20] MEDS: FLUTICASONE/VILANTEROL 100/25MCG 14 PUFFS/INHALER INH SCH (08:06)
[2020-01-20] MEDS: INSULIN ASPART 100 UNITS/ML 3 ML PEN SC SCH ×4 (08:09→20:28)
[2020-01-20] MEDS: COLLAGENASE OINT 30 GM TUBE EXT SCH (08:10)
[2020-01-20] MEDS: CEFEPIME 2,000 MG in SYRINGE 7.5 ML IV SCH (10:23)
[2020-01-20] MEDS: DOXYCYCLINE HYCLATE 100 MG CAP PO SCH ×2 (10:23→20:20)
--- NOTE | 2020-01-20 11:24 | Pulmonology Progress Note ---
Date of Service January 20, 2020 Assessment & Plan (1) Acute on chronic respiratory failure with hypoxia and hypercapnia: CT chest 01/18/2020: Severe centrilobular emphysema appreciated mostly on the upper lobes, bilateral pleural effusion, there is bilateral lower lobe atelectasis more on the left side. Superimposed pneumonia cannot be excluded on the left lower lobe. Pulmonary artery seems to be enlarged. --Acute on chronic hypercapnic hypoxic respiratory failure Etiology multifactorial COPD exacerbation --> continue with Solu-Medrol, inhaled bronchodilator, antibiotic as anti-inflammatory effect Diastolic CHF with bilateral pleural effusion and pericardial effusion --> continue with diuresis as tolerated, cardio on board O2 supplementation to keep oxygen saturation between 88-92% --Bilateral pleural effusion with pericardial effusion Likely from underlying heart failure, diastolic Hypoalbuminemia may also be playing a role --> needs good nutrition support. --COPD/emphysema severe Needs to be on triple therapy at home. Would recommend Trelegy inhaler on a daily basis when discharged --DNI Plan: Patient personally states that she is feeling much better compared to yesterday on high flow. She still using her accessory muscles. She states that this is how she usually breathes. Patient has severe COPD/emphysema on steroids, inhalers, antibiotics. Keep patient negative balance I think palliative care consult in this case should be given a thought. Please note the above document was generated using voice recognition software. It may contain grammatical, syntax or spelling errors. Admission and Anticipated Discharge Date Admission Date: January 18, 2020 Subjective Patient seen and examined at bedside. No adverse events overnight. Patient states she is more comfortable compared to yesterday on high flow rather than BiPAP. At the time of examination patient was on 60% FiO2 on 25 L high flow. She is still using her accessory muscles when she breathes she is able to talk in full sentences. She had her food today. Denies any belly pain, no chest pain. Review of Systems Review of Systems: All systems reviewed & are unremarkable except as noted in Subjective Physical Exam Physical Exam: Constitutional: No acute distress, frail-appearing HEENT: EOMI, PERRLA Respiratory system: Decreased air entry bilaterally, no wheeze, no rhonchi, mild crackles bilateral lower lobes CVS: S1-S2 positive, no murmurs or gallops Abdomen: Soft, nontender, nondistended, positive bowel sounds x4 Extremities: +2 pulses bilaterally radialis/ dorsalis pedis, no cyanosis, +2 pitting edema bilateral lower extremity Neuro: Awake alert oriented x3 Psych: Normal mood and affect G/U: No Perez Skin: no rashes, warm and dry Lymphatic: no cervical or axillary lymphadenopathy Results & Data Results & Data ([facility]) Vital Signs (Past 12 Hours) Vital Signs Temp Pulse Pulse Resp BP BP Pulse Ox 01/20/20 11:13 91 H 18 95 01/20/20 08:00 90 01/20/20 07:28 90 20 95 01/20/20 07:26 90 18 95 01/20/20 07:10 36.9 C 99 H 20 169/84 H 91 01/20/20 04:22 98 H 22 92 01/20/20 04:03 36.9 C 94 H 19 137/61 94 01/20/20 02:40 91 H 24 96 01/20/20 01:20 89 86 36 H 94 01/19/20 23:37 79 18 91 01/20/20 05:49 01/20/20 05:49 PG Care Time/CCT Total # of Minutes Spent Total Time Spent with Patient: Total time spent is greater than 50% in coordination of care (as documented) at patient's floor/unit and/or counseling patient: Coding Level of Care Code 43559 Subseq Hosp Care Lvl 3 Diagnoses Acute on chronic respiratory failure with hypoxia and hypercapnia J96.21; J96.22
--- NOTE | 2020-01-20 11:27 | Cardiology Progress Note ---
Date of Service January 20, 2020 Assessment & Plan (1) Acute exacerbation of chronic obstructive pulmonary disease: Patient is an elderly extremely complex 79-year-old female as outlined. Her underlying history is notable for severe chronic obstructive lung disease/emphysema as well as diffuse atherosclerotic vascular disease. Patient admitted with worsening dyspnea multifactorial with component of chronic obstructive lung disease, of volume overload and symptomatic anemia superimposed on chronic hypoalbuminemia She is responding to diuretics and treatment of underlying pulmonary issues per patient description clinically Echocardiogram demonstrates a moderate size loculated pericardial effusion without overt tamponade Recommendations: Echocardiogram repeated today demonstrates moderate sized loculated posterior effusion no greater size possibly slightly decreased. Would continue furosemide at 20 mg p.o. daily We will increase topical nitrates for further blood pressure control Marked hypoalbuminemia contributing with severe underlying pulmonary disease Overall prognosis significantly limited (2) Acute on chronic respiratory failure with hypoxia and hypercapnia: (3) Peripheral arterial disease with history of revascularization: (4) Stage 4 chronic kidney disease: (5) Symptomatic anemia: (6) CAD (coronary artery disease): (7) Pericardial effusion without cardiac tamponade: (8) Hypoalbuminemia: Admission and Anticipated Discharge Date Admission Date: January 18, 2020 Subjective Patient seen and examined, chart, medications, telemetry reviewed. Still chronically dyspneic with moderate cough. Patient states improved. No chest pains or tachypalpitations. Physical Exam Constitutional: + thin and + cachectic Eyes: PERRL, conjunctivae normal, anicteric sclerae ENMT: external ear and nose normal, oropharynx normal Neck: trachea midline, no thyromegaly Respiratory: Auscultation: + diminished lung sounds and + wheezes Cardiovascular: Rate/Rhythm: regular rate and + tachycardic (With distant heart sounds) Vessels: + JVD Extremities: + edema (Trace) Gastrointestinal (Abdomen): Percussion/Palpation: abdomen soft; abdomen nontender and no hepatosplenomegaly Neurologic: PERRL, EOMI, accommodation nl, no face palsy, no dysarthria Results & Data ([facility]) Vital Signs (Past 12 Hours) Vital Signs Temp Pulse Pulse Resp BP BP Pulse Ox 01/20/20 11:13 91 H 18 95 01/20/20 08:00 90 01/20/20 07:28 90 20 95 01/20/20 07:26 90 18 95 01/20/20 07:10 36.9 C 99 H 20 169/84 H 91 01/20/20 04:22 98 H 22 92 01/20/20 04:03 36.9 C 94 H 19 137/61 94 01/20/20 02:40 91 H 24 96 01/20/20 01:20 89 86 36 H 94 01/19/20 23:37 79 18 91
[2020-01-20] MEDS: FUROSEMIDE 20 MG TAB PO SCH (11:56)
[2020-01-20] MEDS ORDERED: PHARMACY GLYCEMIC MGMT CONSULT PRN (12:09)
--- NOTE | 2020-01-20 12:32 | Pharmacy Report ---
Glycemic Control Consultation - Date of Service January 20, 2020 - Scope Scope: Glycemic Pharmacist consulted for glycemic control and to write orders per [facility] inpatient glycemic control protocol. - Objective Weight: 39 kg Accmarquezecks BSG (last 24hrs): 01/19/20 01/19/20 01/19/20 16:50 16:51 17:12 Glucose POC Glucose 60 L* 62 L* 82 01/19/20 01/20/20 01/20/20 20:39 05:49 11:02 Glucose 198 H POC Glucose 246 H 327 H* 01/20/20 11:03 Glucose POC Glucose 322 H* Laboratory Data (last 24hrs): 01/20/20 05:49 Potassium 4.6 Carbon Dioxide 29 Anion Gap 5.0 Creatinine 1.67 H Est Cr Clr Drug Dosing 16.3 - Recent Pertinent Medications Outpatient Anti-diabetic Regimen: * Tradjenta 5 mg po daily * A1c = 6.1 % - per review of MD notes last visit Risk Factors for Insulin Resistance: * Steroids: solm * Diet: yes - Assessment & Plan Assessment & Plan: ASSESSMENT: * 79 year old female admitted with respiratory failure. Recent admission to hospital last month. Pharmacy consulted for glycemic management. Known to glycemic service from last admission * At time of consult, BSG elevated at 322 mg/dL - insulin already given by RN before changes could be made. Will plan to utilize similar parameters from other admission. Patient is receiving steroids therefore anticipate steroid induced hyperglycemia PLAN FOR INPATIENT GLYCEMIC CONTROL: * Basal insulin * Lantus 5 units this AM, then Lantus HS scale * Bolus insulin * NovoLog per scale ACHS or Q6hrs while NPO * Goal Range: Low 120 mg/dL - High 160 mg/dL * Correction Factor: 45 mg/dL/unit * Nutritional / Prandial insulin per carb ratio of 1 unit per 12 grams CHO consumed * Please note that the plan above was derived based on current level of insulin resistance and hospital stress. These recommendations are appropriate for inpatient admission only. Plan of care upon discharge will need to be reassessed to avoid potential outpatient hypo/hyperglycemia. Thank you.
--- NOTE | 2020-01-20 16:23 | Hospitalist Progress Note ---
Date of Service January 20, 2020 Assessment & Plan (1) Acute on chronic respiratory failure with hypoxia and hypercapnia: Acute on chronic hypoxic, hypercapnic respiratory failure Multifactorial Possible Healthcare associated pneumonia Acute diastolic CHF Exacerbation with B/L Pleural Effusion Acute on Chronic COPD Exacerbation Hypoalbuminemia Volume overload Pericardial Effusion --CT: Advanced emphysema. Mild cardiac enlargement noting a moderate pericardial effusion. Small to moderate pleural effusions with bibasilar consolidation. This likely represents atelectasis. Correlate clinically for evidence of superimposed pneumonia. There is trace abdominopelvic ascites. Cholelithiasis. Bladder distention. Colonic diverticulosis without clear CT evidence of acute diverticulitis. Moderate constipation. Body wall edema. ECHO:Reviewed --Continue broad spectrum Antibiotics--Cefepime, Doxy --On Solu-medrol, Nebs --Appreciate Pulmonology/Cardiology Input --Continue IV lasix 20mg daily --Added Topical Nitrates --Director Of Cloud Services consulted --Monitor I/Os, daily weight, electrolytes, renal function --Continue High Flow --Palliative care consulted to address goals of care --Titrate down Solu-medrol as able Hypomagnesemia Replete electrolytes as needed Cholelithiasis Choledocholithiasis Transaminitis Trace ascites Liver USD:Cholelithiasis. Mildly dilated common bile duct. Suspected choledocholithiasis. Mild intrahepatic biliary ductal dilatation. Small right pleural effusion. Small pericardial effusion. Trace ascites. Likely due to hepatic congestion from volume overload contributing CT ABD as above LFTs trending down Appreciate GI Input Needs MRCP when Cardio/Pulmonary status improves conservative management for now Hypertension Continue Metoprolol Added Nitrates H/O CAD PVD S/P surgery Continue Plavix, metoprolol, statin DM Type II Last HbA1C:6.05 December 2019 Continue Insulin therapy while hospitalized Uncontrolled BGs due to solu-medrol CKD IV Baseline Cr ~ 2.0 as per prior Nephrology note Monitor renal function Cr at baseline Acute on Chronic Anemia Partly dilutional due to volume overload Secondary to CKD Transfuse PRBCs as needed Denies active bleeding issues Monitor CBC Chronic RLE wound Continue wound care Malnutrition: BMI 16 Nutrition consulted DVT Px: Heparin SQ Code Status DNI only as per my discussion with patient Admission and Anticipated Discharge Date Admission Date: January 18, 2020 Subjective Patient is seen and examined at bedside Subjectively feels better although seems to be in mild respiratory distress Currently on high flow Less cough today Denies chest pain, dizziness, nausea, abd pain Tolerated diet Repeat echo did not show any significant change in pericardial effusion Review of Systems Review of Systems: All systems reviewed & are unremarkable except as noted in HPI & below Physical Exam Physical Exam: Physical Exam: Vitals signs as noted above General Appearance:Thin, Frail, no apparent distress Head: normocephalic, Atraumatic Eyes: normal inspection, EOMI Neck: supple, Trachea midline Respiratory/Chest: Decreased breath sounds, CTA Cardiovascular: S1, S2, No murmur Abdomen/GI:Soft, Non tender, Bowel sounds present Extremities/Musculoskelatal:normal inspection, B/L LE edema, RLE wound in dressing Neurologic/Psych:AAOX3, grossly no focal neurological deficits Skin: normal color, warm Results & Data Results & Data ([facility]) Vital Signs (Past 12 Hours) Vital Signs Temp Pulse Pulse Resp BP Pulse Ox 01/20/20 15:36 37 C 93 H 18 162/70 H 95 01/20/20 13:19 93 H 18 94 01/20/20 13:18 93 H 18 94 01/20/20 12:06 37.1 C 91 H 18 187/69 H 92 01/20/20 11:13 91 H 18 95 01/20/20 08:00 90 01/20/20 07:28 90 20 95 01/20/20 07:26 90 18 95 01/20/20 07:10 36.9 C 99 H 20 169/84 H 91 01/20/20 04:22 98 H 22 92 Laboratory Results Short CBC 01/20/20 Range/Units 05:49 WBC 10.23 (4.8-10.8) K/uL Hgb 9.5 L (12.0-16.0) g/dL Hct 29.6 L (37-47) % Plt Count 309 (130-400) K/uL BMP 01/20/20 05:49 Sodium 144 Potassium 4.6 Chloride 110 H Carbon Dioxide 29 BUN 62 H Creatinine 1.67 H Glucose 198 H Calcium 9.0 Liver Function 01/20/20 Range/Units 05:49 Total Bilirubin 0.4 (0.2-1) mg/dl AST 48 H (15-37) U/L ALT 102 H (12-78) U/L Alkaline Phosphatase 407 H (45-117) U/L Albumin 1.9 L (3.4-5.0) gm/dl
[2020-01-20] MEDS ORDERED: INSULIN GLARGINE SOLOSTAR 100 UNITS/ML 3 ML PEN SC SCH ×2 (21:00)
[2020-01-21] MEDS ORDERED: INSULIN ASPART 100 UNITS/ML 3 ML PEN SC SCH
[2020-01-21] MEDS: ALBUT/IPRATROP 3MG/0.5MG NEB 3 ML VIAL NEB SCH ×4 (00:57→19:24)
[2020-01-21] MEDS ORDERED: AMLODIPINE BESYLATE 5 MG TAB PO ONE (01:06)
--- NOTE | 2020-01-21 03:54 | Communication Note ---
Date of Service: January 21, 2020 Made aware by RN of uncontrolled blood pressure. SBP 160-180 from yesterday AM. Patient asymptomatic as per RN. AP Hypertensive urgency Add Norvasc to current Toprol XL and Nitropaste regimen. Will relay to AM provider.
[2020-01-21 06:02] LABS: Hematocrit (blood only) 29.5 % (37-47); Hemoglobin 9.7 g/dL (12.0-16.0); Mean Corpuscular Hemoglobin 31.7 pg (25-34); Mean Corpuscular Hgb Conc 32.9 g/dL (32-36); Mean Corpuscular Volume 96.4 fL (80-100); Mean Platelet Volume 10.4 fL (7.4-10.4); Platelet Count 284 K/uL (130-400); RDW Coefficient of Variation 15.9 % (11.5-14.5); RDW Standard Deviation 55.7 fL (36.4-46.3); Red Blood Count 3.06 M/uL (4.2-5.4); White Blood Count 10.46 K/uL (4.8-10.8)
[2020-01-21] MEDS: NITROGLYCERIN 2% OINTMENT 30GM TUBE EXT SCH ×4 (06:02→23:44)
[2020-01-21 06:41] LABS: Albumin Level 1.8 gm/dl (3.4-5.0); BUN Creatinine Ratio 49.7 (10-20); Creatinine Clr Calc Pharmacy 17.5 ml/min; Est GFR (African American) 37.5; Est GFR (Non-African American) 32.3; Potassium 4.3 mmol/L (3.5-5.1)
[2020-01-21 06:44] LABS: Albumin Globulin Ratio 0.6 (0.9-2); Bilirubin,Total 0.3 mg/dl (0.2-1); Globulin 3.2 gm/dl (2.5-4.0)
[2020-01-21] MEDS: INSULIN ASPART 100 UNITS/ML 3 ML PEN SC SCH ×5 (08:18→23:49)
[2020-01-21] MEDS: DOCUSATE SODIUM 100 MG CAP PO SCH ×2 (08:19→20:31)
[2020-01-21] MEDS: CLOPIDOGREL BISULFATE 75 MG TAB PO SCH (08:19)
[2020-01-21] MEDS: METOPROLOL SUCC 50MG EXT REL TAB PO SCH (08:19)
[2020-01-21] MEDS: PANTOprazole 40 MG TAB PO SCH (08:20)
[2020-01-21] MEDS: FERROUS SULFATE 325 MG TAB PO SCH (08:20)
[2020-01-21] MEDS: AZITHROMYCIN 250 MG TAB PO SCH (08:20)
[2020-01-21] MEDS: FUROSEMIDE 20 MG TAB PO SCH (08:20)
[2020-01-21] MEDS: HEPARIN SOD 5,000 UNIT/0.5 ML VIAL SQ SCH ×2 (08:21→20:34)
[2020-01-21] MEDS: UMECLIDINIUM BROMIDE 62.5MCG/BLISTER 7 PUFFS/INHALER INH SCH (08:21)
[2020-01-21] MEDS: FLUTICASONE/VILANTEROL 100/25MCG 14 PUFFS/INHALER INH SCH (08:21)
[2020-01-21] MEDS: COLLAGENASE OINT 30 GM TUBE EXT SCH (08:21)
[2020-01-21] MEDS: methylPREDNISolone 40 MG in SYRINGE 0 ML IV SCH ×2 (08:21→20:31)
[2020-01-21] MEDS ORDERED: INSULIN GLARGINE SOLOSTAR 100 UNITS/ML 3 ML PEN SC SCH (09:00)
[2020-01-21] MEDS: DOXYCYCLINE HYCLATE 100 MG CAP PO SCH ×2 (10:28→20:31)
[2020-01-21] MEDS: CEFEPIME 2,000 MG in SYRINGE 7.5 ML IV SCH (10:28)
--- NOTE | 2020-01-21 11:06 | Cardiology Progress Note ---
Date of Service January 21, 2020 Assessment & Plan (1) Acute exacerbation of chronic obstructive pulmonary disease: Patient is an elderly extremely complex 79-year-old female as outlined. Her underlying history is notable for severe chronic obstructive lung disease/emphysema as well as diffuse atherosclerotic vascular disease. Patient admitted with worsening dyspnea multifactorial with component of chronic obstructive lung disease, of volume overload and symptomatic anemia superimposed on chronic hypoalbuminemia She is responding to diuretics and treatment of underlying pulmonary issues per patient description clinically Echocardiogram demonstrates a moderate size loculated pericardial effusion without overt tamponade Recommendations: Echocardiogram demonstrates moderate sized loculated posterior effusion no greater size possibly slightly decreased. Would continue furosemide at 20 mg p.o. daily Agree with addition of amlodipine, will increase to 2.5 mg twice daily Marked hypoalbuminemia contributing with severe underlying pulmonary disease Overall prognosis significantly limited (2) Acute on chronic respiratory failure with hypoxia and hypercapnia: (3) Peripheral arterial disease with history of revascularization: (4) Stage 4 chronic kidney disease: (5) Symptomatic anemia: (6) CAD (coronary artery disease): (7) Pericardial effusion without cardiac tamponade: (8) Hypoalbuminemia: Admission and Anticipated Discharge Date Admission Date: January 18, 2020 Subjective Patient was seen and examined, chart, medications, telemetry reviewed. Patient notes respiratory status slightly improved this morning. No chest pains tachypalpitations or dizziness. Blood pressures trending upward despite current medical therapies with amlodipine added last evening Physical Exam Constitutional: + thin and + cachectic Eyes: PERRL, conjunctivae normal, anicteric sclerae ENMT: external ear and nose normal, oropharynx normal Neck: trachea midline, no thyromegaly Respiratory: Auscultation: + diminished lung sounds and + wheezes Cardiovascular: Rate/Rhythm: regular rate and + tachycardic (With distant heart sounds) Vessels: + JVD Extremities: + edema (Trace) Gastrointestinal (Abdomen): Percussion/Palpation: abdomen soft; abdomen nontender and no hepatosplenomegaly Neurologic: PERRL, EOMI, accommodation nl, no face palsy, no dysarthria Results & Data ([facility]) Vital Signs (Past 12 Hours) Vital Signs Temp Pulse Resp BP Pulse Ox 01/21/20 08:09 36.5 C 88 22 191/71 H 93 01/21/20 07:09 86 28 H 92 01/21/20 07:08 86 28 H 92 01/21/20 03:45 80 20 96 01/21/20 02:47 36.7 C 87 24 174/77 H 95 01/21/20 00:58 89 20 94 01/21/20 00:57 89 20 94 01/20/20 23:43 36.8 C 91 H 24 184/77 H 91 Laboratory Results Laboratory Results - last 24 hr 01/18/20 01/19/20 01/20/20 04:54 07:36 11:02 WBC RBC Hgb Hct MCV MCH MCHC RDW Std Deviation RDW Coeff of Leslie Plt Count MPV Peripher Smr Path Cons Sodium Potassium Chloride Carbon Dioxide Anion Gap BUN Creatinine Est Cr Clr Drug Dosing Est GFR ( Amer) Est GFR (Non-Af Amer) BUN/Creatinine Ratio Glucose POC Glucose 327 H* Calcium Total Bilirubin AST ALT Alkaline Phosphatase Total Protein Albumin Globulin Albumin/Globulin Ratio Crossmatch See Detail 01/20/20 01/20/20 01/20/20 11:03 16:30 16:32 WBC RBC Hgb Hct MCV MCH MCHC RDW Std Deviation RDW Coeff of Leslie Plt Count MPV Peripher Smr Path Cons Sodium Potassium Chloride Carbon Dioxide Anion Gap BUN Creatinine Est Cr Clr Drug Dosing Est GFR ( Amer) Est GFR (Non-Af Amer) BUN/Creatinine Ratio Glucose POC Glucose 322 H* 403 H* 385 H* Calcium Total Bilirubin AST ALT Alkaline Phosphatase Total Protein Albumin Globulin Albumin/Globulin Ratio Crossmatch 01/20/20 01/21/20 01/21/20 20:23 00:02 05:46 WBC 10.46 RBC 3.06 L Hgb 9.7 L Hct 29.5 L MCV 96.4 MCH 31.7 MCHC 32.9 RDW Std Deviation 55.7 H RDW Coeff of Leslie 15.9 H Plt Count 284 MPV 10.4 Peripher Smr Path Cons Sodium Potassium Chloride Carbon Dioxide Anion Gap BUN Creatinine Est Cr Clr Drug Dosing Est GFR ( Amer) Est GFR (Non-Af Amer) BUN/Creatinine Ratio Glucose POC Glucose 112 H 155 H Calcium Total Bilirubin AST ALT Alkaline Phosphatase Total Protein Albumin Globulin Albumin/Globulin Ratio Crossmatch 01/21/20 01/21/20 05:46 07:45 WBC RBC Hgb Hct MCV MCH MCHC RDW Std Deviation RDW Coeff of Leslie Plt Count MPV Peripher Smr Path Cons Sodium 143 Potassium 4.3 Chloride 110 H Carbon Dioxide 27 Anion Gap 6.0 BUN 75 H Creatinine 1.50 H Est Cr Clr Drug Dosing 17.5 Est GFR ( Amer) 37.5 Est GFR (Non-Af Amer) 32.3 BUN/Creatinine Ratio 49.7 H Glucose 260 H POC Glucose 265 H Calcium 9.0 Total Bilirubin 0.3 AST 44 H ALT 103 H Alkaline Phosphatase 389 H Total Protein 5.0 L Albumin 1.8 L Globulin 3.2 Albumin/Globulin Ratio 0.6 L Crossmatch
[2020-01-21] MEDS ORDERED: INSULIN GLARGINE SOLOSTAR 100 UNITS/ML 3 ML PEN SC ONE (12:00)
[2020-01-21] MEDS ORDERED: MoRPHine SULFATE 5 MG/0.25 ML UDP ONE (12:44)
--- NOTE | 2020-01-21 12:46 | Palliative Care Consultation ---
Date of Consultation January 21, 2020 Assessment & Plan (1) Palliative care encounter: Chart reviewed, patient seen and examined. Patient is alert and oriented x4. Patient's son, Sujit Baird, and grandson at bedside. Both live in [place] and are up here visiting, they have been here for a couple of months. Patient's brother, Ramses Cruz, is her POA. Patient is an 79-year-old female with a past medical history significant for end-stage COPD-patient has had 3 recent hospitalizations, she has had 3 failed discharges to home per her brother. Patient has only been able to be home for 1 to 2 days before she has to return to the hospital due to increased shortness of breath. Patient having difficulty eating due to shortness of breath and increased work of breathing. Patient and brother were considering referral to [facility] as she cannot care for herself at home alone. Patient is currently being treated for COPD exacerbation-on exam patient with significant shortness of breath, not even able to say 1 word between breaths, increased work of breathing with pursed lips. Was able to have patient agreed to try a low dose of Roxanol to help with her breathing-this was given, continued visit with observation after her morphine dose. Patient's resp iratory status improved, patient able to take deeper breaths, less labored, able to say 3-4 words between breaths. -Discussed patient's goals-patient ideally would like to return home, she has a dog at home. Patient states that coming to the hospital does not improve her breathing anymore-amenable to hospice referral. -Discussed with son privately that her prognosis would likely be weeks to months -Spoke with patient's brother-he will speak to the son and grandson regarding whether or not the family could provide 24/7 care if patient were to return home knowing that her prognosis would likely be weeks to months. -Patient's brother reports she is a DNR-advised patient that without intubation chest compressions and shock would not be helpful-we will change her CODE STATUS to DNR -Patient's comorbidities include CKD stage IV, well-controlled diabetes, CAD- status post STEMI in' with stent placement, hypertension, HLD, systolic CHF, carotid stenosis and tobacco dependence. -Patient's brother reports she has a living will-she has designated that after her her body will be donated to [facility]. Also states no aggressive measures. -Will follow-up in a.m. regarding family's decision whether or not to bring patient home under hospice care or pursue placement at [facility] with hospice. -Patient is currently on high flow nasal cannula-FiO2 is equivalent to 5 L nasal cannula-will allow patient to rest today, instructed her to ask for Roxanol as often as she needs it, we will look to wean her O2 tomorrow. -Patient has 1 son, 2 grandchildren and 4 great-grandchildren. -PPS 40% (2) Acute on chronic respiratory failure with hypoxia and hypercapnia: Patient with end-stage COPD-hospitalizations no longer helpful. Patient and family amenable to hospice referral (3) CHF (congestive heart failure): Systolic CHF-on Plavix and metoprolol at home (4) Stage 4 chronic kidney disease: At her prior stated baseline-creatinine 1.5, baseline reported as 1.4-1.7 (5) Anemia: History of Present Illness Reason for Consultation: Address goals of care, address CODE STATUS Requesting Physician: Dr. Michaud Attending Physician: Beto Michaud MD History of Present Illness Chart reviewed, patient seen and examined. Patient is alert and oriented x4. Patient's son, Sujit Baird, and grandson at bedside. Both live in [place] and are up here visiting, they have been here for a couple of months. Patient's brother, Ramses Cruz, is her POA. Patient is an 79-year-old female with a past medical history significant for end-stage COPD-patient has had 3 recent hospitalizations, she has had 3 failed discharges to home per her brother. Patient has only been able to be home for 1 to 2 days before she has to return to the hospital due to increased shortness of breath. Patient having difficulty eating due to shortness of breath and increased work of breathing. Patient and brother were considering referral to [facility] as she cannot care for herself at home alone. Patient is currently being treated for COPD exacerbation-on exam patient with significant shortness of breath, not even able to say 1 word between breaths, increased work of breathing with pursed lips. Was able to have patient agreed to try a low dose of Roxanol to help with her breathing-this was given, continued visit with observation after her morphine dose. Patient's respiratory status improved, patient able to take deeper breaths, less labored, able to say 3-4 words between breaths. -Discussed patient's goals-patient ideally would like to return home, she has a dog at home. Patient states that coming to the hospital does not improve her breathing anymore-amenable to hospice referral. -Discussed with son privately that her prognosis would likely be weeks to months -Spoke with patient's brother-he will speak to the son and grandson regarding whether or not the family could provide 27/12 care if patient were to return home knowing that her prognosis would likely be weeks to months. -Patient's brother reports she is a DNR-advised patient that without intubation chest compressions and shock would not be helpful-we will change her CODE STATUS to DNR -Patient's comorbidities include CKD stage IV, well-controlled diabetes, CAD- status post STEMI in with stent placement, hypertension, HLD, systolic CHF, carotid stenosis and tobacco dependence. -Patient's brother reports she has a living will-she has designated that after her her body will be donated to [facility]. Also states no aggressive measures. -Will follow-up in a.m. regarding family's decision whether or not to bring patient home under hospice care or pursue placement at [facility] with hospice. -Patient is currently on high flow nasal cannula-FiO2 is equivalent to 5 L nasal cannula-will allow patient to rest today, instructed her to ask for Roxanol as often as she needs it, we will look to wean her O2 tomorrow. -Patient has 1 son, 2 grandchildren and 4 great-grandchildren. -PPS 40% Allergies Allergy/AdvReac Type Severity Reaction Status Date / Time codeine Allergy Mild Unknown Verified 01/18/20 01:19 amoxicillin Allergy Unknown unknown Verified 01/18/20 01:19 aspirin Allergy Unknown UNKNOWN Verified 01/18/20 01:19 bacitracin Allergy Unknown Rash Verified 01/18/20 01:19 isosorbide Allergy Unknown unknown Verified 01/18/20 01:19 neomycin Allergy Unknown Rash Verified 01/18/20 01:19 polymyxin B Allergy Unknown Rash Verified 01/18/20 01:19 Home Medications Home Medications Medication Instructions Recorded Confirmed Type Combivent Respimat 1 puff INHALATION QID 05/01/19 01/18/20 History Tradjenta 5 mg PO DAILY 05/01/19 01/18/20 History albuterol sulfate [Ventolin HFA] 2 puff INHALATION Q6H PRN 05/01/19 01/18/20 History atorvastatin 80 mg PO DAILY 05/01/19 01/18/20 History budesonide-formoterol [Symbicort] 2 puff INHALATION BID 05/01/19 01/18/20 History clopidogrel 75 mg PO DAILY 05/01/19 01/18/20 History ipratropium-albuterol 3 ml INHALATION Q4H PRN 05/01/19 01/18/20 History metoprolol succinate 100 mg PO DAILY 05/01/19 01/18/20 History mirtazapine 7.5 mg PO HS 05/01/19 01/18/20 History pantoprazole 20 mg PO DAILY 05/01/19 01/18/20 History ferrous sulfate 325 mg PO QAM #30 tab 12/31/19 01/18/20 Rx hydrochlorothiazide 25 mg PO QAM #30 tab 12/31/19 01/18/20 Rx collagenase clostridium histo. 1 applic EXT DAILY #1 tube 01/16/20 01/18/20 Rx [Santyl] doxycycline hyclate 100 mg PO BID #7 cap 01/16/20 01/18/20 Rx white petrolatum-mineral oil 1 applic EXT UD PRN #1 tube 01/16/20 01/18/20 Rx [Dermacerin] Patient History Medical History CAD (coronary artery disease) "NSTEMI 01/2009 - BMS to distal left circumflex, cath at that time showed 100% proximal RCA occlusion" CHF (congestive heart failure) CKD (chronic kidney disease), stage IV COPD, severe "oxygen requiring" DM type 2 (diabetes mellitus, type 2) Dyslipidemia Femoral artery aneurysm, right "s/p repair" GERD (gastroesophageal reflux disease) HTN (hypertension) Hypercalcemia Iron deficiency anemia Ischemic cardiomyopathy "echo 04/2015- EF 50-55%, grade I diastolic dysfunction" On 05/02/15 18:17 Adele Mathur wrote "echo 2011 - EF 45-50%, grade I diastolic dysfunction" Nocturnal hypoxemia Peripheral arterial disease with history of revascularization PVD (peripheral vascular disease) Surgical History H/O aorto-femoral bypass History of hysterectomy Hx of appendectomy Hx of cataract surgery S/P carotid endarterectomy "left in 2001, left carotid stent placed 2002" S/P femoral-popliteal bypass surgery Family History Other Heart disease Denies family history of Diabetes COPD (chronic obstructive pulmonary disease) Social History Smoking Status: Former smoker Second Hand Exposure: No; Do You Dip or Chew Tobacco: No; Tobacco Cessation Education Requested by Patient: No Hx Alcohol Use: No Hx Substance Use: No Preferred Language: Kazakh Communication Ability: Effective Crew Chief Required: No Beliefs That Will Affect Care: None marital status: / Current Living Situation: Alone Other Information That Helps Us Care for You: No Feels Safe at Home: Yes Safety Concerns: Feels Safe At This Time Review of Systems Review of Systems: Unable to complete a full ROS due to extreme shortness of breath Physical Exam Physical Exam: PE: Patient awake, alert and oriented x4, positive significant distress due to dyspnea HEENT: EOMI, [place] Respirations: Poor air movement bilaterally, pursed lip breathing, on O2 at high flow nasal cannula at 30 L/min with an FiO2 of 40%. Positive accessory muscle use. Patient unable to even say 1 word between breaths-was given 1 dose of Roxanol at 5 mg-after approximately 15 minutes patient's breathing improved, was able to say 3-4 words between breaths, able to take less shallow breaths, stated she was much more comfortable. CV: Tachycardic on exam, no edema Abdomen: Soft, nontender Extremities: Thin and cachectic, positive muscle wasting Neuro: Alert and oriented x4, able to make her own medical decisions. Results & Data ([facility]) Vital Signs (Past 12 Hours) Vital Signs Temp Pulse Resp BP Pulse Ox 01/21/20 12:04 97.7 F 72 18 155/58 H 100 01/21/20 11:16 86 30 H 95 01/21/20 08:09 97.7 F 88 22 191/71 H 93 01/21/20 07:09 86 28 H 92 01/21/20 07:08 86 28 H 92 01/21/20 03:45 80 20 96 01/21/20 02:47 98.1 F 87 24 174/77 H 95 01/21/20 00:58 89 20 94 01/21/20 00:57 89 20 94 PG Care Time/CCT Total # of Minutes Spent Total Time Spent with Patient: Total time spent 90 minutes with greater than 50% of the time spent at bedside assessing patient's comfort level, observing after being given a dose of morphine, and addressing goals of care as well as developing a plan of care. Spoke with son privately outside room, spoke with patient's POA, her brother by phone as well as collaborating with attending physician. Coding Level of Care Code 03034 Inpt Consult Level 3 Diagnoses Palliative care encounter Z51.5 Acute on chronic respiratory failure with hypoxia and hypercapnia J96.21; J96.22 CHF (congestive heart failure) I50.9 Stage 4 chronic kidney disease N18.4 Anemia D64.9 Time Spent (min) 90
--- NOTE | 2020-01-21 14:25 | Wound Consultation ---
Date of Consultation January 21, 2020 Assessment & Plan (1) Traumatic open wound of right lower leg: This is an 79-year-old with a traumatic wound of her right lower extremity. Wound needed debridement. Topical Xylocaine was applied. After obtaining permission and using a curette, the wound was debridement of fibrin and slough. Scant bleeding was controlled pressure. Patient tolerated the procedure well with no complications. This represents a non-excisional debridement less than 2 0 cm. Wound be dressed with Aquacel Ag. Thank for limited participate in the care of this patient. Please call with any questions. History of Present Illness Reason for Consultation: Right leg wound Attending Physician: Beto Michaud MD History of Present Illness This is an 79-year-old female with a history of CKD stage IV, type 2 diabetes, CAD status post bare-metal stent in 2008, hypertension, COPD with nocturnal h ypoxemia and worsening anemia who is readmitted with respiratory failure. Patient has been seen with a traumatic wound of her right anterior leg. I am being consulted for follow-up of the same. Patient denies fevers or chills. She is seen at bedside with WOCN. Allergies Allergy/AdvReac Type Severity Reaction Status Date / Time codeine Allergy Mild Unknown Verified 01/18/20 01:19 amoxicillin Allergy Unknown unknown Verified 01/18/20 01:19 aspirin Allergy Unknown UNKNOWN Verified 01/18/20 01:19 bacitracin Allergy Unknown Rash Verified 01/18/20 01:19 isosorbide Allergy Unknown unknown Verified 01/18/20 01:19 neomycin Allergy Unknown Rash Verified 01/18/20 01:19 polymyxin B Allergy Unknown Rash Verified 01/18/20 01:19 Home Medications Home Medications Medication Instructions Recorded Confirmed Type Combivent Respimat 1 puff INHALATION QID 05/01/19 01/18/20 History Tradjenta 5 mg PO DAILY 05/01/19 01/18/20 History albuterol sulfate [Ventolin HFA] 2 puff INHALATION Q6H PRN 05/01/19 01/18/20 History atorvastatin 80 mg PO DAILY 05/01/19 01/18/20 History budesonide-formoterol [Symbicort] 2 puff INHALATION BID 05/01/19 01/18/20 History clopidogrel 75 mg PO DAILY 05/01/19 01/18/20 History ipratropium-albuterol 3 ml INHALATION Q4H PRN 05/01/19 01/18/20 History metoprolol succinate 100 mg PO DAILY 05/01/19 01/18/20 History mirtazapine 7.5 mg PO HS 05/01/19 01/18/20 History pantoprazole 20 mg PO DAILY 05/01/19 01/18/20 History ferrous sulfate 325 mg PO QAM #30 tab 12/31/19 01/18/20 Rx hydrochlorothiazide 25 mg PO QAM #30 tab 12/31/19 01/18/20 Rx collagenase clostridium histo. 1 applic EXT DAILY #1 tube 01/16/20 01/18/20 Rx [Santyl] doxycycline hyclate 100 mg PO BID #7 cap 01/16/20 01/18/20 Rx white petrolatum-mineral oil 1 applic EXT UD PRN #1 tube 01/16/20 01/18/20 Rx [Dermacerin] Patient History Medical History CAD (coronary artery disease) "NSTEMI 01/2009 - BMS to distal left circumflex, cath at that time showed 100% proximal RCA occlusion" CHF (congestive heart failure) CKD (chronic kidney disease), stage IV COPD, severe "oxygen requiring" DM type 2 (diabetes mellitus, type 2) Dyslipidemia Femoral artery aneurysm, right "s/p repair" GERD (gastroesophageal reflux disease) HTN (hypertension) Hypercalcemia Iron deficiency anemia Ischemic cardiomyopathy "echo 04/2015- EF 50-55%, grade I diastolic dysfunction" On 05/02/15 18:17 Adele Mathur wrote "echo 2010 - EF 45-50%, grade I diastolic dysfunction" Nocturnal hypoxemia Peripheral arterial disease with history of revascularization PVD (peripheral vascular disease) Surgical History H/O aorto-femoral bypass History of hysterectomy Hx of appendectomy Hx of cataract surgery S/P carotid endarterectomy "left in 2001, left carotid stent placed 2002" S/P femoral-popliteal bypass surgery Family History Other Heart disease Denies family history of Diabetes COPD (chronic obstructive pulmonary disease) Social History Smoking Status: Former smoker Second Hand Exposure: No; Do You Dip or Chew Tobacco: No; Tobacco Cessation Education Requested by Patient: No Hx Alcohol Use: No Hx Substance Use: No Preferred Language: Hungarian Communication Ability: Effective Paralegals Required: No Beliefs That Will Affect Care: None marital status: / Current Living Situation: Alone Other Information That Helps Us Care for You: No Feels Safe at Home: Yes Safety Concerns: Feels Safe At This Time Review of Systems Review of Systems: All systems reviewed & are unremarkable except as noted in HPI & below Physical Exam Physical Exam: Temp Pulse Resp BP Pulse Ox 36.5 C 86 26 H 155/58 H 99 01/21/20 12:04 01/21/20 13:22 01/21/20 13:22 01/21/20 12:04 01/21/20 13:22 Constitutional: + ill appearing Eyes: PERRL, conjunctivae normal, anicteric sclerae ENMT: external ear and nose normal, oropharynx normal Ears: no hearing impairment Skin: Wound measuring as recorded by nursing documentation. Wound is covered with fibrin slough. Periwound is intact without inflammation. There is moderate drainage and no foul odors. Neurologic: awake; not confused Psychiatric: A+Ox3, euthymic affect Results & Data ([facility]) Vital Signs (Past 12 Hours) Vital Signs Temp Pulse Resp BP Pulse Ox 01/21/20 13:22 86 26 H 99 01/21/20 12:04 36.5 C 72 18 155/58 H 100 01/21/20 11:16 86 30 H 95 01/21/20 08:09 36.5 C 88 22 191/71 H 93 01/21/20 07:09 86 28 H 92 01/21/20 07:08 86 28 H 92 01/21/20 03:45 80 20 96 01/21/20 02:47 36.7 C 87 24 174/77 H 95 Laboratory Results 01/21/20 01/21/20 01/21/20 Range/Units 11:13 07:45 05:46 WBC (4.8-10.8) K/uL RBC (4.2-5.4) M/uL Hgb (12.0-16.0) g/dL Hct (37-47) % MCV (80-100) fL MCH (25-34) pg MCHC (32-36) g/dL RDW Std Deviation (36.4-46.3) fL RDW Coeff of Leslie (11.5-14.5) % Plt Count (130-400) K/uL MPV (7.4-10.4) fL Peripher Smr Path Cons Sodium 143 (136-145) mmol/L Potassium 4.3 (3.5-5.1) mmol/L Chloride 110 H (98-107) mmol/L Carbon Dioxide 27 (21-32) mmol/L Anion Gap 6.0 (3-11) BUN 75 H (7-18) mg/dl Creatinine 1.50 H (0.6-1.2) mg/dl Est Cr Clr Drug Dosing 17.5 ml/min Est GFR ( Amer) 37.5 Est GFR (Non-Af Amer) 32.3 BUN/Creatinine Ratio 49.7 H (10-20) Glucose 260 H (70-99) mg/dl POC Glucose 292 H 265 H (70-99) mg/dl Calcium 9.0 (8.5-10.1) mg/dl Total Bilirubin 0.3 (0.2-1) mg/dl AST 44 H (15-37) U/L ALT 103 H (12-78) U/L Alkaline Phosphatase 389 H (45-117) U/L Total Protein 5.0 L (6.4-8.2) gm/dl Albumin 1.8 L (3.4-5.0) gm/dl Globulin 3.2 (2.5-4.0) gm/dl Albumin/Globulin Ratio 0.6 L (0.9-2) Crossmatch 01/21/20 01/21/20 01/20/20 Range/Units 05:46 00:02 20:23 WBC 10.46 (4.8-10.8) K/uL RBC 3.06 L (4.2-5.4) M/uL Hgb 9.7 L (12.0-16.0) g/dL Hct 29.5 L (37-47) % MCV 96.4 (80-100) fL MCH 31.7 (25-34) pg MCHC 32.9 (32-36) g/dL RDW Std Deviation 55.7 H (36.4-46.3) fL RDW Coeff of Leslie 15.9 H (11.5-14.5) % Plt Count 284 (130-400) K/uL MPV 10.4 (7.4-10.4) fL Peripher Smr Path Cons Sodium (136-145) mmol/L Potassium (3.5-5.1) mmol/L Chloride (98-107) mmol/L Carbon Dioxide (21-32) mmol/L Anion Gap (3-11) BUN (7-18) mg/dl Creatinine (0.6-1.2) mg/dl Est Cr Clr Drug Dosing ml/min Est GFR ( Amer) Est GFR (Non-Af Amer) BUN/Creatinine Ratio (10-20) Glucose (70-99) mg/dl POC Glucose 155 H 112 H (70-99) mg/dl Calcium (8.5-10.1) mg/dl Total Bilirubin (0.2-1) mg/dl AST (15-37) U/L ALT (12-78) U/L Alkaline Phosphatase (45-117) U/L Total Protein (6.4-8.2) gm/dl Albumin (3.4-5.0) gm/dl Globulin (2.5-4.0) gm/dl Albumin/Globulin Ratio (0.9-2) Crossmatch 01/20/20 01/20/20 01/19/20 Range/Units 16:32 16:30 07:36 WBC (4.8-10.8) K/uL RBC (4.2-5.4) M/uL Hgb (12.0-16.0) g/dL Hct (37-47) % MCV (80-100) fL MCH (25-34) pg MCHC (32-36) g/dL RDW Std Deviation (36.4-46.3) fL RDW Coeff of Leslie (11.5-14.5) % Plt Count (130-400) K/uL MPV (7.4-10.4) fL Peripher Smr Path Cons Sodium (136-145) mmol/L Potassium (3.5-5.1) mmol/L Chloride (98-107) mmol/L Carbon Dioxide (21-32) mmol/L Anion Gap (3-11) BUN (7-18) mg/dl Creatinine (0.6-1.2) mg/dl Est Cr Clr Drug Dosing ml/min Est GFR ( Amer) Est GFR (Non-Af Amer) BUN/Creatinine Ratio (10-20) Glucose (70-99) mg/dl POC Glucose 385 H* 403 H* (70-99) mg/dl Calcium (8.5-10.1) mg/dl Total Bilirubin (0.2-1) mg/dl AST (15-37) U/L ALT (12-78) U/L Alkaline Phosphatase (45-117) U/L Total Protein (6.4-8.2) gm/dl Albumin (3.4-5.0) gm/dl Globulin (2.5-4.0) gm/dl Albumin/Globulin Ratio (0.9-2) Crossmatch 01/18/20 Range/Units 04:54 WBC (4.8-10.8) K/uL RBC (4.2-5.4) M/uL Hgb (12.0-16.0) g/dL Hct (37-47) % MCV (80-100) fL MCH (25-34) pg MCHC (32-36) g/dL RDW Std Deviation (36.4-46.3) fL RDW Coeff of Leslie (11.5-14.5) % Plt Count (130-400) K/uL MPV (7.4-10.4) fL Peripher Smr Path Cons Sodium (136-145) mmol/L Potassium (3.5-5.1) mmol/L Chloride (98-107) mmol/L Carbon Dioxide (21-32) mmol/L Anion Gap (3-11) BUN (7-18) mg/dl Creatinine (0.6-1.2) mg/dl Est Cr Clr Drug Dosing ml/min Est GFR ( Amer) Est GFR (Non-Af Amer) BUN/Creatinine Ratio (10-20) Glucose (70-99) mg/dl POC Glucose (70-99) mg/dl Calcium (8.5-10.1) mg/dl Total Bilirubin (0.2-1) mg/dl AST (15-37) U/L ALT (12-78) U/L Alkaline Phosphatase (45-117) U/L Total Protein (6.4-8.2) gm/dl Albumin (3.4-5.0) gm/dl Globulin (2.5-4.0) gm/dl Albumin/Globulin Ratio (0.9-2) Crossmatch See Detail PG Care Time/CCT Total # of Minutes Spent Total Time Spent with Patient: Total time spent is greater than 50% in coordination of care (as documented) at patient's floor/unit and/or counseling patient: Coding Level of Care Code 70149 Inpt Consult Level 3 Diagnoses Traumatic open wound of right lower leg S81.801A Encounter type: initial encounter (1) Traumatic open wound of right lower leg Encounter type: initial encounter Qualified Code(s): S81.801A - Unspecified open wound, right lower leg, initial encounter
--- NOTE | 2020-01-21 14:48 | Hospitalist Progress Note ---
Date of Service January 21, 2020 Assessment & Plan (1) Acute on chronic respiratory failure with hypoxia and hypercapnia: Acute on chronic hypoxic, hypercapnic respiratory failure Multifactorial Possible Healthcare associated pneumonia Acute diastolic CHF Exacerbation with B/L Pleural Effusion Acute on Chronic COPD Exacerbation Hypoalbuminemia Volume overload Pericardial Effusion --CT: Advanced emphysema. Mild cardiac enlargement noting a moderate pericardial effusion. Small to moderate pleural effusions with bibasilar consolidation. This likely represents atelectasis. Correlate clinically for evidence of superimposed pneumonia. There is trace abdominopelvic ascites. Cholelithiasis. Bladder distention. Colonic diverticulosis without clear CT evidence of acute diverticulitis. Moderate constipation. Body wall edema. ECHO:Reviewed --Continue broad spectrum Antibiotics--Cefepime, Doxy --On Solu-medrol, Nebs --Appreciate Pulmonology/Cardiology Input --Continue IV lasix 20mg daily --Added Topical Nitrates --Insole And Outsole Splitter consulted --Monitor I/Os, daily weight, electrolytes, renal function --Continue High Flow --Appreciate Palliative care Input --Titrate down Solu-medrol as able --CODE STATUS readdressed to DNI DNR by palliative care --Overall prognosis poor --Roxanol added for comfort Hypomagnesemia Replete electrolytes as needed Cholelithiasis Choledocholithiasis Transaminitis Trace ascites Liver USD:Cholelithiasis. Mildly dilated common bile duct. Suspected choledocholithiasis. Mild intrahepatic biliary ductal dilatation. Small right pleural effusion. Small pericardial effusion. Trace ascites. Likely due to hepatic congestion from volume overload contributing CT ABD as above Appreciate GI Input Continue conservative management LFTs trending down Hypertension Continue Metoprolol Added Nitrates Added amlodipine for blood pressure control H/O CAD PVD S/P surgery Continue Plavix, metoprolol, statin DM Type II Last HbA1C:6.05 December 2019 Continue Insulin therapy while hospitalized Uncontrolled BGs due to solu-medrol CKD IV Baseline Cr ~ 2.0 as per prior Nephrology note Monitor renal function Cr at baseline Acute on Chronic Anemia Partly dilutional due to volume overload Secondary to CKD Transfuse PRBCs as needed Denies active bleeding issues Monitor CBC Chronic RLE wound Continue wound care S/P Wound Debridement on 01/21/20 by Malnutrition: BMI 16 Nutrition consulted DVT Px: Heparin SQ Code Status DNI/DNR Admission and Anticipated Discharge Date Admission Date: January 18, 2020 Subjective Patient is seen and examined at bedside States her dyspnea is better On high flow oxygen today Discussed with pulmonology, palliative care today Had right leg wound debridement by Dr. Giron Cough slowly improving Denies chest pain, dizziness, nausea, abd pain Review of Systems Review of Systems: All systems reviewed & are unremarkable except as noted in HPI & below Physical Exam Physical Exam: Physical Exam: Vitals signs as noted above General Appearance:Thin, Frail, no apparent distress Head: normocephalic, Atraumatic Eyes: normal inspection, EOMI Neck: supple, Trachea midline Respiratory/Chest: Decreased breath sounds, CTA Cardiovascular: S1, S2, No murmur Abdomen/GI:Soft, Non tender, Bowel sounds present Extremities/Musculoskelatal:normal inspection, B/L LE edema, RLE wound in dressing Neurologic/Psych:AAOX3, grossly no focal neurological deficits Skin: normal color, warm Results & Data Results & Data ([facility]) Vital Signs (Past 12 Hours) Vital Signs Temp Pulse Resp BP Pulse Ox 01/21/20 13:22 86 26 H 99 01/21/20 12:04 36.5 C 72 18 155/58 H 100 01/21/20 11:16 86 30 H 95 01/21/20 08:09 36.5 C 88 22 191/71 H 93 01/21/20 07:09 86 28 H 92 01/21/20 07:08 86 28 H 92 01/21/20 03:45 80 20 96 01/21/20 02:47 36.7 C 87 24 174/77 H 95 Laboratory Results Short CBC 01/21/20 Range/Units 05:46 WBC 10.46 (4.8-10.8) K/uL Hgb 9.7 L (12.0-16.0) g/dL Hct 29.5 L (37-47) % Plt Count 284 (130-400) K/uL BMP 01/21/20 05:46 Sodium 143 Potassium 4.3 Chloride 110 H Carbon Dioxide 27 BUN 75 H Creatinine 1.50 H Glucose 260 H Calcium 9.0 Liver Function 01/21/20 Range/Units 05:46 Total Bilirubin 0.3 (0.2-1) mg/dl AST 44 H (15-37) U/L ALT 103 H (12-78) U/L Alkaline Phosphatase 389 H (45-117) U/L Albumin 1.8 L (3.4-5.0) gm/dl
--- NOTE | 2020-01-21 15:06 | Pharmacy Report ---
Pharmacy Glycemic Short Note 2 - Date of Service January 21, 2020 - Glycemic Short BSG Results (Last 24 hours): 01/20/20 01/20/20 01/20/20 16:30 16:32 20:23 Glucose POC Glucose 403 H* 385 H* 112 H 01/21/20 01/21/20 01/21/20 00:02 05:46 07:45 Glucose 260 H POC Glucose 155 H 265 H 01/21/20 11:13 Glucose POC Glucose 292 H ASSESSMENT: 01/20 * Patient received total of 35 units of insulin yesterday * Fasting BSG elevated at 260 mg/dL - will utilize full stress of 2 for Lantus dosing / 15 units this AM. * Lunch BSG trending up - adjusted CF/CR PLAN FOR INPATIENT GLYCEMIC CONTROL: * Basal insulin * Lantus 15 units this AM * Bolus insulin * NovoLog per scale ACHS or Q6hrs while NPO * Goal Range: Low 120 mg/dL - High 160 mg/dL * Correction Factor: 35 mg/dL/unit * Nutritional / Prandial insulin per carb ratio of 1 unit per 10 grams CHO consumed
[2020-01-21] MEDS: MoRPHine SULFATE 5 MG/0.25 ML UDP PO PRN ×4 (16:00→23:44)
[2020-01-21] MEDS: IPRATROPIUM BROMIDE NEB SOLN 0.02% 2.5 ML VIAL INH PRN (16:24)
[2020-01-21] MEDS: LEVALBUTEROL 1.25MG/0.5ML NEB INH PRN (16:24)
[2020-01-21] MEDS: AMLODIPINE BESYLATE 5 MG TAB PO SCH (17:38)
--- NOTE | 2020-01-21 18:03 | Pulmonology Progress Note ---
Date of Service January 21, 2020 Assessment & Plan (1) Acute on chronic respiratory failure with hypoxia and hypercapnia: 79-year-old female with COPD, emphysema, tobacco abuse history, chronic respiratory failure with home O2, heart failure, pleural effusions, worsening stage IV renal failure. 1. Acute on chronic respiratory failure: Patient has greater than [id number] smoking history * Imaging confirm severe emphysema * Continue to treat for COPD exacerbation including methylprednisolone and antibiotics * Continue high flow as tolerated -target SaO2 88 to 92% * Palliative care has been consulted -agree with 2. Bilateral pleural effusions: Most likely secondary to congestive heart failure * We will continue to diurese as tolerated * Would not consider thoracentesis at this time but focus on palliation 3. Tobacco abuse: Patient states that she is smoked most of her adult life. Discussed need for abstinence Thank you for including us in the care of this patient. At this point we will sign off as focus seems to be shifting to palliation. I did discuss this with Dr. Michaud and with Dr. Cardenas. Please feel free to reconsult as needed (2) CHF (congestive heart failure): (3) Stage 4 chronic kidney disease: (4) Peripheral arterial disease with history of revascularization: (5) Acute exacerbation of chronic obstructive pulmonary disease: (6) Pericardial effusion without cardiac tamponade: Admission and Anticipated Discharge Date Admission Date: January 18, 2020 Subjective Attending: Dr. Cardenas Patient seen and examined at bedside. She is in acute respiratory distress with use of accessory muscles. She has on high flow oxygen with a flow rate of 40 L and FiO2 of 100%. During the course of my time with the patient we will to wean her down to 30 L flow rate and an FiO2 of 80% for good saturations but persistent shortness of breath. I had a long discussion with the patient regarding CODE STATUS and she stated that she did not want to be put on a ventilator and that she did not want cardiac resuscitation. I discussed this with Dr. Bauer who is going to change CODE STATUS to DNR/DNI. Patient also expressed fear over dying secondary to shortness of breath and discomfort. Once we talked about alternatives to maintain comfort she was much more willing to talk about palliative care. Patient does have severe emphysema and has smoked 1 pack/day since her teenage years. She reports that she was smoking right up to the time of this admission. She is aware of the gravity of her illness and that she may during this hospital stay. The patient denies any fever or chills. She has no specific productive cough. She has no nausea or vomiting. She has no back pain or leg pain. Primary complaint is shortness of breath and air hunger. We discussed small doses of morphine to help with the air hunger and she was amenable to trying that. She understood with increased opiates that she may have decreased attentiveness and even lethargy and agreed that as long as she was comfortable that would be okay. The patient had no other acute complaints. Review of Systems Review of Systems: All systems reviewed & are unremarkable except as noted in HPI & below Physical Exam Physical Exam: GENERAL : Moderate respiratory distress with use of accessory muscles EYES: No icterus, gaze conjugate. Pupils equal round and reactive to light NOSE: No evidence of epistaxis. High flow cannula in place and secure MOUTH: No lesions or candidiasis. Mucosa moist NECK: Supple LUNGS: Bibasilar crackles. Decreased breath sounds globally but worse at the bilateral bases. No appreciation of bronchospasm. HEART: Regular, tachycardic in the low 100s ABDOMEN: Soft, NT, ND, BS Present EXTREMITIES: No LE edema, pedal pulses intact and equal bilaterally NEURO: A&OX3 Results & Data Results & Data ([facility]) Vital Signs (Past 12 Hours) Vital Signs Temp Pulse Resp BP Pulse Ox 01/21/20 16:26 36.7 C 90 20 165/57 H 98 01/21/20 16:24 81 22 98 01/21/20 15:26 79 26 H 98 01/21/20 13:22 86 26 H 99 01/21/20 12:04 36.5 C 72 18 155/58 H 100 01/21/20 11:16 86 30 H 95 01/21/20 08:09 36.5 C 88 22 191/71 H 93 01/21/20 07:09 86 28 H 92 01/21/20 07:08 86 28 H 92 Laboratory Results 01/21/20 05:46 01/21/20 05:46 Diagnostic Findings Most recent chest x-ray 01/19/2020 reviewed PG Care Time/CCT Total # of Minutes Spent Total Time Spent with Patient: Total time spent is greater than 50% in coordination of care (as documented) at patient's floor/unit and/or counseling patient: 40 Coding Level of Care Code 73465 Subseq Hosp Care Lvl 2 Diagnoses Acute on chronic respiratory failure with hypoxia and hypercapnia J96.21; J96.22 CHF (congestive heart failure) I50.9 Stage 4 chronic kidney disease N18.4 Peripheral arterial disease with history of revascularization I73.9; Z98.890 Acute exacerbation of chronic obstructive pulmonary disease J44.1 Pericardial effusion without cardiac tamponade I31.3 Time Spent (min) 40
[2020-01-21] MEDS: CARBOHYDRATES FOR HYPOGLYCEMIA PO PRN (20:29)
[2020-01-22] MEDS: ALBUT/IPRATROP 3MG/0.5MG NEB 3 ML VIAL NEB SCH ×3 (01:18→13:04)
[2020-01-22] MEDS: INSULIN ASPART 100 UNITS/ML 3 ML PEN SC SCH ×3 (03:40→12:02)
[2020-01-22] MEDS: NITROGLYCERIN 2% OINTMENT 30GM TUBE EXT SCH ×2 (06:16→12:23)
[2020-01-22] MEDS: MoRPHine SULFATE 5 MG/0.25 ML UDP PO PRN ×3 (06:16→10:59)
[2020-01-22 06:59] LABS: Hematocrit (blood only) 31.8 % (37-47); Hemoglobin 10.4 g/dL (12.0-16.0); Mean Corpuscular Hemoglobin 31.8 pg (25-34); Mean Corpuscular Hgb Conc 32.7 g/dL (32-36); Mean Corpuscular Volume 97.2 fL (80-100); Mean Platelet Volume 9.8 fL (7.4-10.4); Platelet Count 281 K/uL (130-400); RDW Coefficient of Variation 15.8 % (11.5-14.5); RDW Standard Deviation 55.7 fL (36.4-46.3); Red Blood Count 3.27 M/uL (4.2-5.4)
[2020-01-22 07:32] LABS: BUN Creatinine Ratio 55.1 (10-20); Calcium 9.7 mg/dl (8.5-10.1); Creatinine Clr Calc Pharmacy 17.1 ml/min; Est GFR (Non-African American) 31.1; Magnesium 2.1 mg/dl (1.8-2.4); Potassium 4.7 mmol/L (3.5-5.1)
[2020-01-22 07:35] LABS: Albumin Globulin Ratio 0.6 (0.9-2); Bilirubin,Total 0.4 mg/dl (0.2-1); Globulin 3.1 gm/dl (2.5-4.0); Total Protein 5.1 gm/dl (6.4-8.2)
[2020-01-22] MEDS: FERROUS SULFATE 325 MG TAB PO SCH (07:46)
[2020-01-22] MEDS: DOCUSATE SODIUM 100 MG CAP PO SCH (07:46)
[2020-01-22] MEDS: HEPARIN SOD 5,000 UNIT/0.5 ML VIAL SQ SCH (07:47)
[2020-01-22] MEDS: UMECLIDINIUM BROMIDE 62.5MCG/BLISTER 7 PUFFS/INHALER INH SCH (07:47)
[2020-01-22] MEDS: FUROSEMIDE 20 MG TAB PO SCH (07:50)
[2020-01-22] MEDS: AMLODIPINE BESYLATE 5 MG TAB PO SCH (07:50)
[2020-01-22] MEDS: COLLAGENASE OINT 30 GM TUBE EXT SCH (07:51)
[2020-01-22] MEDS: PANTOprazole 40 MG TAB PO SCH (07:51)
[2020-01-22] MEDS: CLOPIDOGREL BISULFATE 75 MG TAB PO SCH (07:51)
[2020-01-22] MEDS: methylPREDNISolone 40 MG in SYRINGE 0 ML IV SCH (07:52)
[2020-01-22] MEDS: METOPROLOL SUCC 50MG EXT REL TAB PO SCH (07:52)
[2020-01-22] MEDS: AZITHROMYCIN 250 MG TAB PO SCH (07:52)
[2020-01-22] MEDS ORDERED: AMLODIPINE BESYLATE 5 MG TAB PO SCH (09:00)
[2020-01-22] MEDS ORDERED: INSULIN GLARGINE SOLOSTAR 100 UNITS/ML 3 ML PEN SC SCH (09:00)
--- NOTE | 2020-01-22 09:56 | Pharmacy Report ---
Pharmacy Glycemic Short Note 2 - Date of Service January 22, 2020 - Glycemic Short BSG Results (Last 24 hours): 01/21/20 01/21/20 01/21/20 11:13 16:22 20:21 Glucose POC Glucose 292 H 111 H 62 L* 01/21/20 01/21/20 01/22/20 20:47 23:41 03:32 Glucose POC Glucose 84 104 H 173 H 01/22/20 01/22/20 06:45 07:31 Glucose 200 H POC Glucose 227 H ASSESSMENT: 01/21 * Patient has received 44 units of insulin over the past 24hrs * 15 units of basal (Lantus) * 29 units of bolus (NovoLog) * BSGs [phone](84)-104 mg/dl * Pt with LOW BSG at bedtime last evening - likely secondary to 7 units of NovoLog given at dinner when BSG was 111 mg/dl --> will loosen CF/CR * AM fasting BSG elevatd this AM likely secondary to steroids. Pt obtunded - no breakfast consumed. Will slightly decrease Lantus for decreased PO intake. * Will need to continue titrating insulin with each step down in steroid dosing. 01/20 * Patient received total of 35 units of insulin yesterday * Fasting BSG elevated at 260 mg/dL - will utilize full stress of 2 for Lantus dosing / 15 units this AM. * Lunch BSG trending up - adjusted CF/CR PLAN FOR INPATIENT GLYCEMIC CONTROL: * Basal insulin: decrease * Lantus 10 units this AM * Bolus insulin: loosen * NovoLog per scale ACHS or Q6hrs while NPO * Goal Range: Low 120 mg/dL - High 160 mg/dL * Correction Factor: 40 mg/dL/unit * Nutritional / Prandial insulin per carb ratio of 1 unit per 12 grams CHO consumed
[2020-01-22] MEDS: FLUTICASONE/VILANTEROL 100/25MCG 14 PUFFS/INHALER INH SCH (11:17)
[2020-01-22] MEDS: CEFEPIME 2,000 MG in SYRINGE 7.5 ML IV SCH (11:17)
[2020-01-22] MEDS: DOXYCYCLINE HYCLATE 100 MG CAP PO SCH (11:18)
[2020-01-22] MEDS: LORazepam 0.5 MG TAB PO PRN ×2 (11:37→16:47)
[2020-01-22] MEDS ORDERED: MoRPHine SULFATE 5 MG/0.25 ML UDP PO PRN (12:14)
[2020-01-22] MEDS ORDERED: MoRPHine SULFATE 2 MG/ML CARP ONE (12:19)
[2020-01-22] MEDS ORDERED: MoRPHine SULFATE 2 MG/ML CARP IV PRN (12:27)
--- NOTE | 2020-01-22 12:40 | Cardiology Progress Note ---
Date of Service January 22, 2020 Assessment & Plan (1) Acute exacerbation of chronic obstructive pulmonary disease: Patient is an elderly extremely complex 79-year-old female as outlined. Her underlying history is notable for severe chronic obstructive lung disease/emphysema as well as diffuse atherosclerotic vascular disease. Patient admitted with worsening dyspnea multifactorial with component of chronic obstructive lung disease, of volume overload and symptomatic anemia superimposed on chronic hypoalbuminemia She is responding to diuretics and treatment of underlying pulmonary issues per patient description clinically Echocardiogram demonstrates a moderate size loculated pericardial effusion without overt tamponade Recommendations: Per patient without acute cardiac decline no signs of fluid overload or edema but respiratory status markedly worsened Air hunger aided by narcotics Limited prognosis (2) Acute on chronic respiratory failure with hypoxia and hypercapnia: (3) Peripheral arterial disease with history of revascularization: (4) Stage 4 chronic kidney disease: (5) Symptomatic anemia: (6) CAD (coronary artery disease): (7) Pericardial effusion without cardiac tamponade: (8) Hypoalbuminemia: Admission and Anticipated Discharge Date Admission Date: January 18, 2020 Subjective Patient seen and examined. Patient very dyspneic today with marked air hunger. Symptoms ease somewhat with IV morphine No chest pains no edema Physical Exam Constitutional: + cachectic Very thin in moderate respiratory distress Eyes: PERRL, conjunctivae normal, anicteric sclerae ENMT: external ear and nose normal, oropharynx normal Neck: trachea midline, no thyromegaly Respiratory: Auscultation: + diminished lung sounds and + wheezes Cardiovascular: Rate/Rhythm: regular rate and regular rhythm Extremities: no edema Results & Data ([facility]) Vital Signs (Past 12 Hours) Vital Signs Temp Pulse Pulse Resp BP Pulse Ox 01/22/20 11:00 36.9 C 79 24 178/74 H 92 01/22/20 08:00 72 01/22/20 07:33 36.4 C L 82 26 H 173/68 H 92 01/22/20 07:06 66 28 H 95 01/22/20 03:30 82 24 95 01/22/20 03:04 36.8 C 82 16 167/74 H 96 01/22/20 01:18 82 28 H 92 Laboratory Results Laboratory Results - last 24 hr 01/21/20 01/21/20 01/21/20 16:22 20:21 20:47 WBC RBC Hgb Hct MCV MCH MCHC RDW Std Deviation RDW Coeff of Leslie Plt Count MPV Sodium Potassium Chloride Carbon Dioxide Anion Gap BUN Creatinine Est Cr Clr Drug Dosing Est GFR ( Amer) Est GFR (Non-Af Amer) BUN/Creatinine Ratio Glucose POC Glucose 111 H 62 L* 84 Calcium Magnesium Total Bilirubin AST ALT Alkaline Phosphatase Total Protein Albumin Globulin Albumin/Globulin Ratio 01/21/20 01/22/20 01/22/20 23:41 03:32 06:45 WBC RBC Hgb Hct MCV MCH MCHC RDW Std Deviation RDW Coeff of Leslie Plt Count MPV Sodium 143 Potassium 4.7 Chloride 107 Carbon Dioxide 30 Anion Gap 6.0 BUN 85 H Creatinine 1.55 H Est Cr Clr Drug Dosing 17.1 Est GFR ( Amer) 36.0 Est GFR (Non-Af Amer) 31.1 BUN/Creatinine Ratio 55.1 H Glucose 200 H POC Glucose 104 H 173 H Calcium 9.7 Magnesium 2.1 Total Bilirubin 0.4 AST 31 ALT 93 H Alkaline Phosphatase 332 H Total Protein 5.1 L Albumin 2.0 L Globulin 3.1 Albumin/Globulin Ratio 0.6 L 01/22/20 01/22/20 01/22/20 06:45 07:31 11:34 WBC 11.60 H RBC 3.27 L Hgb 10.4 L Hct 31.8 L MCV 97.2 MCH 31.8 MCHC 32.7 RDW Std Deviation 55.7 H RDW Coeff of Leslie 15.8 H Plt Count 281 MPV 9.8 Sodium Potassium Chloride Carbon Dioxide Anion Gap BUN Creatinine Est Cr Clr Drug Dosing Est GFR ( Amer) Est GFR (Non-Af Amer) BUN/Creatinine Ratio Glucose POC Glucose 227 H 148 H Calcium Magnesium Total Bilirubin AST ALT Alkaline Phosphatase Total Protein Albumin Globulin Albumin/Globulin Ratio
--- NOTE | 2020-01-22 15:20 | Hospitalist Progress Note ---
Date of Service January 22, 2020 Assessment & Plan (1) Acute on chronic respiratory failure with hypoxia and hypercapnia: Acute on chronic hypoxic, hypercapnic respiratory failure Multifactorial Possible Healthcare associated pneumonia Acute diastolic CHF Exacerbation with B/L Pleural Effusion Acute on Chronic COPD Exacerbation Hypoalbuminemia Volume overload Pericardial Effusion --CT: Advanced emphysema. Mild cardiac enlargement noting a moderate pericardial effusion. Small to moderate pleural effusions with bibasilar consolidation. This likely represents atelectasis. Correlate clinically for evidence of superimposed pneumonia. There is trace abdominopelvic ascites. Cholelithiasis. Bladder distention. Colonic diverticulosis without clear CT evidence of acute diverticulitis. Moderate constipation. Body wall edema. ECHO:Reviewed --Received broad spectrum Antibiotics--Cefepime, Doxy --Received Solu-medrol, Nebs --Appreciate Pulmonology/Cardiology Input --Received IV lasix 20mg daily, Topical Nitrates --[employer] Worker consulted --Appreciate Palliative care Input --Very poor prognsosis --Transitioned to comfort measures only --Continue comfort medications only Hypomagnesemia Resolved Cholelithiasis Choledocholithiasis Transaminitis Trace ascites Liver USD:Cholelithiasis. Mildly dilated common bile duct. Suspected choledocholithiasis. Mild intrahepatic biliary ductal dilatation. Small right pleural effusion. Small pericardial effusion. Trace ascites. Likely due to hepatic congestion from volume overload contributing CT ABD as above Appreciate GI Input Continue conservative management LFTs trended down Hypertension Was on Metoprolol, Nitrates, amlodipine On comfort measures H/O CAD PVD S/P surgery Continue Plavix, metoprolol, statin DM Type II Last HbA1C:6.05 December 2019 Received Insulin therapy CKD IV Baseline Cr ~ 2.0 as per prior Nephrology note Monitor renal function Cr at baseline Acute on Chronic Anemia Partly dilutional due to volume overload Secondary to CKD Transfuse PRBCs as needed Denies active bleeding issues Chronic RLE wound Continue wound care S/P Wound Debridement on 01/21/20 by Severe Protein Calorie Malnutrition: BMI 16 Nutrition consulted DVT Px: Heparin SQ Code Status DNI/DNR On Comfort measures only Admission and Anticipated Discharge Date Admission Date: January 18, 2020 Subjective Patient is seen and examined at bedside Very Dyspneic this morning Lethargic but easily awakes Prognosis poor Discussed with palliative care Planned to be transitioned to Comfort measures only Denies chest pain Unable to provide any history due to dyspnea Review of Systems Review of Systems: Other Physical Exam Physical Exam: Physical Exam: Vitals signs as noted above General Appearance:Thin, Frail, no apparent distress Head: normocephalic, Atraumatic Eyes: normal inspection, EOMI Neck: supple, Trachea midline Respiratory/Chest: Decreased breath sounds, CTA, significant dyspnea Cardiovascular: S1, S2, No murmur Abdomen/GI:Soft, Non tender, Bowel sounds present Extremities/Musculoskelatal:normal inspection, B/L LE edema, RLE wound in dressing Neurologic/Psych:AAOX3, grossly no focal neurological deficits Skin: normal color, warm Results & Data Results & Data ([facility]) Vital Signs (Past 12 Hours) Vital Signs Temp Pulse Pulse Resp BP Pulse Ox 01/22/20 13:06 66 22 94 01/22/20 11:00 36.9 C 79 24 178/74 H 92 01/22/20 08:00 72 01/22/20 07:33 36.4 C L 82 26 H 173/68 H 92 01/22/20 07:06 66 28 H 95 01/22/20 03:30 82 24 95 Laboratory Results Short CBC 01/22/20 Range/Units 06:45 WBC 11.60 H (4.8-10.8) K/uL Hgb 10.4 L (12.0-16.0) g/dL Hct 31.8 L (37-47) % Plt Count 281 (130-400) K/uL BMP 01/22/20 06:45 Sodium 143 Potassium 4.7 Chloride 107 Carbon Dioxide 30 BUN 85 H Creatinine 1.55 H Glucose 200 H Calcium 9.7 Liver Function 01/22/20 Range/Units 06:45 Total Bilirubin 0.4 (0.2-1) mg/dl AST 31 (15-37) U/L ALT 93 H (12-78) U/L Alkaline Phosphatase 332 H (45-117) U/L Albumin 2.0 L (3.4-5.0) gm/dl
--- NOTE | 2020-01-22 16:07 | Palliative Care Progress Note ---
Date of Service January 22, 2020 Assessment & Plan (1) Palliative care encounter: Patient seen and examined. Patient's son, Sujit Baird, bedside on initial visit, subsequent visits patient's grandson as well as [id number] at bedside. Patient is an 79-year-old female with a past medical history significant for end-stage COPD-patient has had 3 recent hospitalizations, she has had 3 failed discharges to home per her brother. Patient has only been able to be home for 1 to 2 days before she has to return to the hospital due to increased shortness of breath. Patient having difficulty eating due to shortness of breath and increased work of breathing. Patient and brother were considering referral to [facility] -patient is no longer stable for transfer, patient approaching end-of-life with severe dyspnea and increased work of breathing-requires PRN IV morphine and PRN Ativan for comfort-prognosis now hours -Spoke with patient's brother prior to exam-plan of care is changed, family in the process of calling the brother to see wishes to come visit. -Patient's brother reported yesterday that her living will states no heroic measures-patient is a DNR/DNI-now being transitioned to comfort care only. -Patient's brother reports she has a living will-she has designated that after her her body will be donated to [facility]. -Will continue to follow and provide support to family at bedside as well as ensure patient's comfort with titration of medications as needed. Patient will continue on high flow nasal cannula for comfort -Patient has 1 son, 2 grandchildren and 4 great-grandchildren. -PPS 20% (2) Acute on chronic respiratory failure with hypoxia and hypercapnia: Patient with end-stage COPD-now at end-of-life, comfort measures only (3) CHF (congestive heart failure): (4) Stage 4 chronic kidney disease: (5) Anemia: Admission and Anticipated Discharge Date Admission Date: January 18, 2020 Subjective Patient seen and examined late this a.m., son at bedside. Patient with intermittent distress, did become extremely agitated during visit-having to sit forward, moaning and restless trying to crawl out of bed. Behavior was very distressing for myself as well as for the son. Nursing came and administered 2 mg of morphine IV-patient was able to calm down after a few minutes, much more comfortable. Got permission for patient's grandson and [id number] to also come to bedside. Spoke with patient's POA who is her brother prior to visit. Patient nearing end-of-life, will be very difficult to keep patient alert as well as comfortable, family agreeable to comfort care. Discussed with attending physician-we will make patient comfort care, patient no longer able to take p.o. meds due to severe respiratory distress, added PRN Ativan as well as sublingual and IV morphine for comfort. Patient has taken Ativan at home for anxiety. Collaborated with nursing as well as attending physician Made several visits to bedside to assess patient's comfort level and provide emotional support to family at bedside. Discussed patient's prognosis of hours. Review of Systems Review of Systems: Unobtainable due to reduced consciousness Physical Exam Physical Exam: PE: Patient in extremis during visit-2 mg of IV morphine effective, patient more calm and relaxed, unable to speak due to increased work of breathing and dyspnea HEENT: EOMI, [place] Respiratory: Diminished breath sounds all lung garcia, increased respiratory rate, increased work of breathing CV: Tachycardia on exam, no edema Abdomen: Soft, nontender Neuro: Reduced LOC due to respiratory distress. Results & Data ([facility]) Vital Signs (Past 12 Hours) Vital Signs Temp Pulse Pulse Resp BP Pulse Ox 01/22/20 15:38 80 20 176/68 H 95 01/22/20 13:06 66 22 94 01/22/20 11:00 98.4 F 79 24 178/74 H 92 01/22/20 08:00 72 01/22/20 07:33 97.5 F L 82 26 H 173/68 H 92 01/22/20 07:06 66 28 H 95 PG Care Time/CCT Total # of Minutes Spent Total Time Spent with Patient: Total time spent 65 minutes with greater than 50% of the time at bedside on multiple visits to assess patient's level of comfort, effectiveness of PRN IV morphine as well as provide support to family at bedside as patient nears end-of-life. Prolonged Care Time Prolonged Care Time: Yes Total Prolonged Care Time: 30 Coding Level of Care Code 70937 Subseq Hosp Care Lvl 3 Diagnoses Palliative care encounter Z51.5 Acute on chronic respiratory failure with hypoxia and hypercapnia J96.21; J96.22 CHF (congestive heart failure) I50.9 Stage 4 chronic kidney disease N18.4 Anemia D64.9 Additional Codes Prolonged Care Time - Prolonged Care Time: Yes ([id number]) Time Spent (min) 65 Critical Care Time Prolonged Care Time Prolonged Care Time: Yes Total Prolonged Care Time: 30 65
[2020-01-22] MEDS: MoRPHine SULFATE 2 MG/ML CARP IV PRN ×2 (16:25→17:58)
[2020-01-22] MEDS ORDERED: MoRPHine SULFATE 4 MG/ML 1 ML CARP\\VIAL IV STA (18:46)
[2020-01-22] MEDS ORDERED: MoRPHine SULFATE 4 MG/ML 1 ML CARP\\VIAL ONE (18:52)
[2020-01-22] MEDS ORDERED: LORazepam 1 MG/2 ML VIAL IV PRN (19:19)
[2020-01-22] MEDS: MoRPHine SULFATE 4 MG/ML 1 ML CARP\\VIAL IV PRN ×3 (19:38→22:28)
[2020-01-22] MEDS ORDERED: ATROPINE SULFATE 1% OP SOLN 2 ML BTL SL PRN (19:45)
[2020-01-23] MEDS: MoRPHine SULFATE 4 MG/ML 1 ML CARP\\VIAL IV PRN ×2 (03:11→05:01)
[2020-01-23] MEDS ORDERED: LORazepam 1 MG/2 ML VIAL IV PRN (06:19)
[2020-01-23] MEDS ORDERED: MoRPHine SULFATE 4 MG/ML 1 ML CARP\\VIAL IV PRN (06:19)
[2020-01-23] MEDS ORDERED: fentaNYL 25 MCG/HR TDSY TD SCH (06:30)
--- NOTE | 2020-01-23 06:32 | Communication Note ---
Date of Service: January 23, 2020 Made aware by RN of patient loss of IV access site for comfort medication administration. 3 attempts at establishing IV access site so far unsuccessful as per RN. IM/SL morphine/Ativan PRN while IV access unavailable Fentanyl patch now
[2020-01-23] MEDS: MoRPHine SULFATE 5 MG/0.25 ML UDP SL PRN ×4 (06:41→12:11)
[2020-01-23] MEDS: CHECK FENTANYL PATCH PLACEMENT SCH ×2 (07:33→15:15)
--- NOTE | 2020-01-23 08:44 | Communication Note ---
Date of Service: January 23, 2020 Pt is in comfort care /palliative care all cardiac monitoring , lab draws D/mary transferred to medical floor Maritza Matson MD
[2020-01-23] MEDS ORDERED: ATROPINE SULFATE 1% OP SOLN 2 ML BTL SL PRN (08:45)
[2020-01-23] MEDS ORDERED: ACETAMINOPHEN 650 MG SUPP PR PRN (08:45)
[2020-01-23] MEDS ORDERED: LORazepam 1 MG TAB SL PRN (08:45)
[2020-01-23] MEDS ORDERED: ACETAMINOPHEN 325 MG TAB PO PRN (08:45)
[2020-01-23] MEDS ORDERED: LORazepam 0.5 MG/1 ML VIAL IV PRN (09:00)
[2020-01-23] MEDS ORDERED: ONDANSETRON INJ 2 MG/ML 2 ML VIAL IV PRN (09:00)
[2020-01-23] MEDS ORDERED: ONDANSETRON 4 MG OD TAB SL PRN (09:00)
[2020-01-23] MEDS: LORazepam 1 MG TAB SL PRN ×4 (11:09→21:40)
--- NOTE | 2020-01-23 11:16 | Palliative Care Progress Note ---
Date of Service January 23, 2020 Assessment & Plan (1) Palliative care encounter: -Patient seen and examined. The patient is lying in her hospital bed in acute distress using accessory muscles. -Patient does have Roxanol 10 mg SL Q1 hour. Unfortunately, the patient does not have IV access. The lab was unable to place an IV. -The patient was transferred up to room 360. Recommend that she be placed on an oxymask and discontinue the hi-flow, while administering Roxanol. -The patient responds well to Roxanol and we will gradually decrease the O2 as tolerated. -No auditory secretions noted. -Pt is not stable for transfer out of hospital. Likely will pass within hours to a day or two. Pt is DNR/DNI -PPS 10% (2) Acute on chronic respiratory failure with hypoxia and hypercapnia: Patient with end-stage COPD-now at end-of-life, comfort measures only (3) CHF (congestive heart failure): Systolic CHF-on Plavix and metoprolol at home (4) Stage 4 chronic kidney disease: At her prior stated baseline-creatinine 1.5, baseline reported as 1.4-1.7 (5) Anemia: Admission and Anticipated Discharge Date Admission Date: January 18, 2020 Subjective Patient is seen and examined at bedside Very Dyspneic this morning Lethargic but easily awakes Prognosis poor Discussed with palliative care Planned to be transitioned to Comfort measures only Denies chest pain Unable to provide any history due to dyspnea Physical Exam Constitutional: + acute distress and cooperative Respiratory: + uses accessory muscles and + pursed lip breathing Auscultation: + diminished lung sounds Cardiovascular: RRR, no murmur, no edema Gastrointestinal (Abdomen): normal bowel sounds, soft, nontender, no hepatosplenomegaly Skin: no rashes, warm and dry + purpura Psychiatric: Orientation: alert Eye Contact: + poor eye contact Insight: + severely impaired insight Judgement: + severely impaired judgement Results & Data ([facility]) Vital Signs (Past 12 Hours) Vital Signs Pulse Pulse Resp Pulse Ox 01/23/20 07:02 97 H 24 01/23/20 03:21 89 26 H 91 01/23/20 01:21 60 28 H 92 01/23/20 00:00 59 L PG Care Time/CCT Total # of Minutes Spent Total Time Spent with Patient: Total time spent is greater than 50% in coordination of care (as documented) at patient's floor/unit and/or counseling patient: 45 Coding Level of Care Code 80205 Subseq Hosp Care Lvl 3 Diagnoses Palliative care encounter Z51.5 Acute on chronic respiratory failure with hypoxia and hypercapnia J96.21; J96.22 CHF (congestive heart failure) I50.9 Stage 4 chronic kidney disease N18.4 Anemia D64.9 Time Spent (min) 45 Time Spent Midlevel Total time spent 45 minutes with > 50% of that time spent assessing the patient, discussing goals of care and symptom management with the care team
--- NOTE | 2020-01-23 13:06 | Hospitalist Progress Note ---
Date of Service January 23, 2020 Assessment & Plan (1) Palliative care encounter: over all poor prognosis with end stage COPD appreciate input from Palliative care on comfort care currently (2) Acute on chronic respiratory failure with hypoxia and hypercapnia: Acute on chronic hypoxic, hypercapnic respiratory failure Pericardial Effusion --CT: Advanced emphysema. Mild cardiac enlargement noting a moderate pericardial effusion. Small to moderate pleural effusions with bibasilar consolidation. This likely represents atelectasis. Correlate clinically for evidence of superimposed pneumonia. There is trace abdominopelvic ascites. Cholelithiasis. Bladder distention. Colonic diverticulosis without clear CT evidence of acute diverticulitis. Moderate constipation. Body wall edema. --Appreciate Palliative care Input --Very poor prognsosis --Transitioned to comfort measures only --Continue comfort medications only Hypertension Was on Metoprolol, Nitrates, amlodipine all D/mary On comfort measures Severe Protein Calorie Malnutrition: BMI 16 Nutrition consulted very poor prognosis on comfort /end of life care DVT Px: will DC sub heparin to provide comfort /palliative care poor prognosis Code Status DNI/DNR On Comfort measures only Admission and Anticipated Discharge Date Admission Date: January 18, 2020 Subjective on comfort care Found to be unresponsive, obtunded on last seen mask Breathing heavily, Given intermittent Roxanol for respiratory distress Review of Systems Review of Systems: Unobtainable due to reduced consciousness Physical Exam Physical Exam: Minimum exam for comfort care. General, ill-appearing elderly female, unresponsive, on oxygen mask, Noted to be breathing heavily, no apparent sign of distress Getting intermittent Roxanol part of comfort care Results & Data Results & Data ([facility]) Vital Signs (Past 12 Hours) Vital Signs Pulse Resp Pulse Ox 01/23/20 07:02 97 H 24 01/23/20 03:21 89 26 H 91 01/23/20 01:21 60 28 H 92
[2020-01-23] MEDS: MoRPHine SULFATE 10 MG/0.5 ML UDP SL PRN ×3 (16:27→21:40)
[2020-01-24] MEDS: LORazepam 1 MG TAB SL PRN (00:19)
[2020-01-24] MEDS: MoRPHine SULFATE 10 MG/0.5 ML UDP SL PRN (00:19)
[2020-01-24] MEDS: CHECK FENTANYL PATCH PLACEMENT SCH (00:20)
--- NOTE | 2020-01-24 02:11 | Death Pronouncement Note ---
Date of Service January 24, 2020 Pronouncement Note Admission Date Admission Date: January 18, 2020 Date and Time of Date of : 01/24/20 Time of : 01:35 Contributing Factors (1) Palliative care encounter: (2) Acute on chronic respiratory failure with hypoxia and hypercapnia: Additional Data Confirmation of : no pulse, no respirations, no heart sounds and pupils fixed and dilated Family: contacted Attending physician: Maritza Matson MD
--- NOTE | 2020-01-24 10:36 | Discharge Summary ---
Date of Service January 24, 2020 Admission HPI Per Admitting Provider History obtained from patient and records. History somewhat limited from patient secondary to hearing impairment. Medical history significant for chronic respiratory failure secondary to COPD on home O2 at night, chronic CHF (EF 55 TO 60%, TTE 2017), CAD, PVD sp surgery, hypertension, hyperlipidemia, past tobacco abuse, DM2, insulin requiring, chronic renal insufficiency (baseline creatinine in the 1.4-1.7), chronic anemia (baseline hemoglobin of 8), chronic RLE wound. Recent confinement from December 31 to January 16, 2020 mechanical fall and COPD exacerbation. Patient subsequently discharged home on Doxycycline course. At home, patient noted worsening cough symptoms yesterday with shortness of breath. Unable to expectorate. Patient denies chest pain or aspiration. Some abdominal discomfort. No fever, no chills. Patient brought to the ER for evaluation. Received Solu-Medrol, neb treatment, ceftriaxone for COPD exacerbation. MEDICAL HISTORY: As above. SURGERIES: She has had vascular procedures, appendectomy, hysterectomy, eye surgery. FAMILY HISTORY: Family history of heart disease. 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 Principal Diagnosis Patient Admitted with acute on chronic respiratory failure with hypoxia and hypercapnia Was on hospice/comfort care Patient while on comfort care during this hospital stay Discharge Exam Patient Please refer to pronunciation note/exam documented by on-call hospitalist Dr. Pascual Discharge Data Allergies Allergy/AdvReac Type Severity Reaction Status Date / Time codeine Allergy Mild Unknown Verified 01/18/20 01:19 amoxicillin Allergy Unknown unknown Verified 01/18/20 01:19 aspirin Allergy Unknown UNKNOWN Verified 01/18/20 01:19 bacitracin Allergy Unknown Rash Verified 01/18/20 01:19 isosorbide Allergy Unknown unknown Verified 01/18/20 01:19 neomycin Allergy Unknown Rash Verified 01/18/20 01:19 polymyxin B Allergy Unknown Rash Verified 01/18/20 01:19 Consultations 01/18/20 03:25 ED Decision to Admit Stat 01/18/20 08:30 Consult Case Management - Discharge Planning Routine Consult Pulmonology Routine 01/19/20 09:34 Consult Cardiology Routine 01/19/20 13:19 Consult Gastroenterology Routine 01/20/20 16:23 Consult Palliative Care Routine 01/21/20 08:52 Consult Wound Care Provider Routine Ordered Studies 01/18/20 06:21 CT abd pelvis wo con Urgent CT chest wo con Urgent 01/19/20 08:54 US liver Routine Hospital Course (1) Palliative care encounter: over all poor prognosis with end stage COPD appreciate input from Palliative care Patient was on comfort care only (2) Acute on chronic respiratory failure with hypoxia and hypercapnia: Admitted acute on chronic hypoxic, hypercapnic respiratory failure Pericardial Effusion --CT: Advanced emphysema. Mild cardiac enlargement noting a moderate pericardial effusion. Small to moderate pleural effusions with bibasilar consolidation. This likely represents atelectasis. Correlate clinically for evidence of superimposed pneumonia. There is trace abdominopelvic ascites. Cholelithiasis. Bladder distention. Colonic diverticulosis without clear CT evidence of acute diverticulitis. Moderate constipation. Body wall edema. --Appreciate Palliative care Input --Very poor prognosis -Goal of care/transition to comfort care hospice Severe Protein Calorie Malnutrition: BMI 16 very poor prognosis on comfort /end of life care while on hospice/comfort care Code Status DNI/DNR Patient while on hospice/comfort care Date of : 01/24/20 Time of : 01:35 Total Time Total Time Spent Total Time Spent (In Minutes): Patient Discharge Plan Discharge Items Patient Disposition: Discharge Diagnosis: Patient Admitted with acute on chronic respiratory failure with hypoxia and hypercapnia Was on hospice/comfort care Patient while on comfort care during this hospital stay Addtl Attending Provider Instructions: Patient while on hospice/end-of-life /comfort care
== END 2020-01-24 04:01 | disposition expired | DRG 189 ==
LOC: ED 00:37 → 2S 06:15 → SUATTDRO 06:15 → 2S 08:20 → 3W 01-23 08:41